=== PATIENT | female | born 1945 | race Caucasian/White ===

== ENCOUNTER 2023-06-25 14:34 | Emergency (ER) | payer MEDICARE, OTHER, SELFPAY ==
[2023-06-25 14:41] VITALS: BP 137/80; PULSE 86; RESP 18; TEMP 36.4; O2SAT 98
[2023-06-25 16:34] VITALS: BP 141/72; PULSE 103; RESP 16; O2SAT 99
--- NOTE | 2023-06-25 16:42 | EX.ED.DYSGE1 ---
HPI History of Present Illness Chief Complaint: Nosebleed Informant: patient Narrative Narrative: Patient presents with right-sided epistaxis. Patient is on Eliquis for history of atrial fibrillation. She bent over bleeding from the right side of her nose. Not the left side. She has some drainage down the back. No other areas of bleeding. She did have immunizations today for RSV and pneumonia. She also had blood work done this morning. I looked at her MyChart and she had a hemoglobin of 10.9 without 187,000 platelets today. [facility] Medical History unable to obtain Allergy/AdvReac Type Severity Reaction Status Date / Time acetaminophen [From [place]] Allergy Vomiting Verified 06/25/23 14:37 anastrozole Allergy Rash Verified 06/25/23 14:37 hydrocodone [From [place]] Allergy Vomiting Verified 06/25/23 14:37 Penicillins Allergy Rash Verified 06/25/23 14:37 Social History Smoking Status: Never smoker ROS [facility] [[email or web address] ED Constitutional Constitutional ED: Denies chills or fever(s) ENT ENT ED: Reports other Details: Right-sided epistaxis Cardiovascular Cardiovascular: Denies palpitations Respiratory/Chest Respiratory/Chest: Denies cough or dyspnea Gastrointestinal Gastrointestinal: Denies nausea or vomiting Musculoskeletal Musculoskeletal: Denies myalgias Integumentary Reports other Details: No abnormal bruising. ; Denies rash Neurologic Neurologic: Denies paresthesias Hematologic/Lymphatic Hematologic/Lymphatic: Reports easy bleeding and easy bruising Allergic/Immunologic Allergic/Immunologic ED: Denies urticaria EXAM Physical Exam Narrative Exam Narrative: CONSTITUTIONAL: Patient is nontoxic in appearance. The patient looks comfortable. Work of breathing looks normal. HEENT: No notable trauma. Mucous membranes moist. There is some dried blood in the pharynx. Nasal clamp is in place. No active bleeding through this. EYES: No conjunctival injection. No proptosis. NECK:No JVD. No stridor. CARDIOVASCULAR: Regular rate. Regular rhythm. No notable murmur. No JVD. She sounds as though she is in a regular rhythm at this time. RESPIRATORY: No respiratory distress. Breathing is unlabored. No wheezes. No rhonchi. No rales. No pain with a deep breath. No chest wall tenderness. GASTROINTESTINAL: Not distended. Bowel sounds are normal. No tenderness. GENITOURINARY: No tenderness over the bladder. No CVA tenderness. MUSCULOSKELETAL: Atraumatic. No peripheral edema. NEUROLOGICAL: Patient is alert and appropriate. No focal deficit noted. SKIN: No noted rashes. No diaphoresis. No petechiae or purpura noted. No abnormal bruising. PSYCHIATRIC: Patient is calm. Mood is appropriate. Const Vital Signs: 06/25/23 14:41 06/25/23 16:34 06/25/23 20:00 Temperature 97.6 F L Temperature Source Temporal Pulse Rate 86 103 H 91 Respiratory Rate 18 16 16 Blood Pressure 137/80 H 141/72 H 135/85 H Blood Pressure Mean 99 95 101 Pulse Ox 98 99 95 Oxygen Delivery Method Room Air Room Air Room Air 06/25/23 20:00 Temperature Temperature Source Pulse Rate 85 Respiratory Rate 16 Blood Pressure 135/85 H Blood Pressure Mean 101 Pulse Ox 99 Oxygen Delivery Method MDM MDM MDM Narrative Medical decision making narrative: Procedure: Management of epistaxis: Patient blew her nose. There was some moderate bleeding. [place] mix on a cottonball was placed in the nare and then compressed again. We went back to check. We had her blow her nose again. We put spray thrombin in there and initially it was calm. But then she blew her nose and it started bleeding. I went back in. A little bit more spray thrombin was used and we placed a 5 and half centimeter Rh[place]ocket. I attempted a 7-1/2 initially but it just would not go in. 5 and half went in relatively easily. She tolerated this. We inflated it. She was doing well. There is a little bit of drainage out the front. Patient did keep touching the nose and this would bump the Rhino Rocket. It helped when we taped it to the side. Show was doing well. We are getting her up walking around and she is did start to rebleed. While she was here we decided we would provide further treatment. I did not want to remove this packing as she has some good clot formation. The bleeding was always on the right side. But I did deflate the packing and I dripped TXA around it. We reinflated it. This seemed to really help and she has stopped now. She is walked around. She wants to go home. EKG Initial EKG: Comments: My independent interpretation of her EKG done for history of A-fib shows atrial fibrillation with controlled rate at 77. No acute ST elevation or depression. No ventricular ectopy. Nonspecific changes. QRS duration and QTc are Discharge Plan Triage Chief Complaint: Nosebleed ED Provider: Juliano Mcdowell Dx/Rx/DC Orders Clinical Impression: Right-sided epistaxis Instructions: Nosebleed Primary Care Provider: Phil Negron Referrals: Huber Sheth MD [Med Staff - Courtesy Staff] - 3-5 Days Disposition Disposition: Home, Self Care Discharge Date/Time: 06/25/23 21:25
--- NOTE | 2023-06-25 16:49 | ED.RN ---
NO OLD EKG
[2023-06-25] MEDS: Thrombin 5,000 IU Kit (PSA) 5,000 IU Vial 5000 IU TOPICAL (18:52)
[2023-06-25] MEDS: Mixture 30 ML Bottle 20 ML TOPICAL (18:52)
[2023-06-25 20:00] VITALS: BP 135/85; PULSE 85; PULSE 91; RESP 16; O2SAT 95; O2SAT 99
[2023-06-25] MEDS: TRANEXAMIC ACID 1,000 MG/10 ML ML 1000 MG IRRIGATION (21:22)
== END 2023-06-25 21:25 | disposition home or self-care (01) ==
LOC: ED 17:14
PROVIDERS: Emergency Provider Emergency Medicine; PCP Family Medicine; Visit Provider Emergency Medicine
DX: R04.0 Epistaxis (principal)
CPT/HCPCS: 30901; 93005; 99282

== ENCOUNTER 2023-07-16 18:37 | Inpatient (IN) | payer MEDICARE, OTHER, SELFPAY ==
[2023-07-16 18:38] VITALS: BP 138/78; PULSE 90; RESP 18; TEMP 37.4; O2SAT 97; BMI 26.6
--- OUTSIDE RECORDS SUMMARY | 2023-07-16 19:27 | XMS RPT_ITS | CCD ---
Author Name Unknown Address [address] [place] [address] Organization [facility] Care Team Providers Care Cigarette Book Maker Name Role Phone J Luis Cid Unavailable [phone] Deisi RN, Indu (Rn) Unavailable Tala Negron MD Primary Care Provider No, Referral Unavailable Unavailable Howard Cody MD Unavailable Manny RUSSO MD, Estefani Unavailable Mesfin PRICE, Kami Unavailable Unavailable Vikram Gomez MD Unavailable Vikram Gomez MD Unavailable Preet PRICE, Lesley Zaman Unavailable Unavail able Preet PRICE, Lesley Zaman [facility]available [facility] Addie Unavailable [phone] J Luis Cid Unavailable [facility] RNIndu (Rn) Unavailable Tala Negron MD Primary Care Provider Howard Cody MD Unavailable Manny RUSSO MD, Estefani Unavailable Mesfin PRICE, Kami Unavailable Unavailable Vikram Gomez MD Unavailable Vikram Gomez MD Unavailable Preet PRICE, Lesley Zaman Unavailable Rocio CLARKE Addie Unavailable [phone] Tala Negron MD Primary Care Provider Vikram Gomez MD Unavailable Preet PRICE, Lesley Zaman Unavailable [phone] J Luis Cid Unavailable Deisi RN, Indu (Rn) Unavailable Tala Negron MD Primary Care Provider No, Referral Unavailable Unavailable Escobar RUSSO, Howard Unavailable Manny RUSSO, , Dayayo Unavailable Mesfin RN, Kami Unavailable Unavailable Jason RUSSO, Vikram Unavailable Jason RUSSO, Vikram Unavailable Daniela Chan DO Unavailable Darby PRICE, Lucas Unavailable Darby PRICE, Lucas Unavailable [phone] J Luis Cid Unavailable No, Referral Unavailable Unavailable [facility] RN, Indu (Rn) Unavailable Howard Cody MD Unavailable Mesfin RN, Kami Unavailable Unavailable Zulemafernie CLARKE Addie Unavailable Darby PRICE, Lucas Unavailable PROVIDER, UNKNOWN Referring Unavailable TALA NEGRON Primary Care Unavailab le PROVIDER, UNKNOWN Referring Unavailable TALA NEGRON Primary Care Unavailab devin Gomez MD, Vikram Unavailable Jason RUSSO, Vikram Unavailable TRACY MCKEON Referring Unavailable TALA NEGRON Primary Care Unavailab le GOLIAS, ANSELMO Attending Unavailable TALA NEGRON Primary Care Unavailab le TALA NEGRON Referring Unavailab le GOLIAS, ANSELMO Attending Unavailable TRACY MCKEON Referring Unavailable TALA NEGRON Primary Care Unavailab le GOLIAS, ANSELMO Attending Unavailable TALA NEGRON Primary Care Unavailab le TALA NEGRON Referring Unavailab le GOLIAS, ANSELMO Attending Unavailable TALA NEGRON Primary Care Unavailab le TALA NEGRON Referring Unavailab le GOLIAS, ANSELMO Attending Unavailable DANIELA CHAN Referring Unavailable TALA NEGRON Primary Care Unavailab le TALA NEGRON Primary Care Unavailab VLADIMIR Mckeon Referring Unavailable TALA NEGRON Primary Care Unavailab VLADIMIR Mckeon Attending Unavailable VLADIMIR THAO Referring Unavailable TALA NEGRON Primary Care Unavailab VLADIMIR Mckeon Referring Unavailable TALA NEGRON Primary Care Unavailab le TALA NEGRON Primary Care Unavailab NIMISHA Mehta Referring Unavailable RAMÍREZ [place] Attending Unavailable TALA NEGRON Primary Care Unavailab KIZZY Bustillos Attending Unavailable TALA NEGRON Primary Care Unavailab le ZULEMADANIELA KNIGHT Referring Unavailable TALA NEGRON Primary Care Unavailab le TALA NEGRON Primary Care Unavailab devin ALEMAN, NIMISHA Referring Unavailable NIMISHA ALEMAN Attending Unavailable TALA NEGRON Primary Care Unavailab le TALA NEGRON Attending Unavailab le TALA NEGRON Primary Care Unavailab le TALA NEGRON Referring Unavailab le TESTTRACY JEAN Referring Unavailable TALA NEGRON Primary Care Unavailab le GOLALEXEI, ANSELMO Attending Unavailable TRACY MCKEON Referring Unavailable TALA NEGRON Primary Care Unavailab le GOLIASANSELMO Attending Unavailable TALA NEGRON Primary Care Unavailab le TALA NEGRON Referring Unavailab le GOLALEXEI, ANSELMO Attending Unavailable TALA NEGRON Primary Care Unavailab le TALA NEGRON Referring Unavailab le GOLIAS, ANSELMO Attending Unavailable TALA NEGRON Primary Care Unavailab TALA Adame Referring Unavailab le GOLIAS ANSELMO Attending Unavailable TRACY MCKEON Referring Unavailable TALA NEGRON Primary Care Unavailab le GOLIAS, ANSELMO Attending Unavailable TRAVIS GARIBAY Referring Unavailable TRAVIS GARIBAY Attending Unavailable TALA NEGRON Primary Care Unavailab AGNIESZKA Milligan Attending Unavail able TALA NEGRON Primary Care Unavailab le TALA NEGRON Primary Care Unavailab le TALA NEGRON Primary Care Unavailab VLADIMIR Mckeon Referring Unavailable TALA NEGRON Primary Care Unavailab le TYRELL, AJIT Attending Unavailable TALA NEGRON Primary Care Unavailab le GERA, LUISER B Primary Care Unavailab le ALEMAN, NIMISHA Referring Unavailable TALA NEGRON Primary Care Unavailab le ALEMAN, NIMISHA Referring Unavailable FISH ARREOLA Referring Unavailable LUIS NEGRONER Eligio Primary Care Unavailab le GERA, LUISER B Primary Care Unavailab le DANIELA CHAN Attending Unavailable TALA NEGRON Primary Care Unavailab HUMBERTO Alexander Attending Unavailable TALA NEGRON B Primary Care Unavailab le RODRIGUEZ, RANDEE Referring Unavailable LUIS NEGRONER B Primary Care Unavailab le RODRIGUEZRANDEE Referring Unavailable LUIS NEGRONER B Primary Care Unavailab le RODRIGUEZ, RANDEE Referring Unavailable TALA NEGRON B Primary Care Unavailab le MOUNTDANIELA KNIGHT Referring Unavailable TALA NEGRON B Primary Care Unavailab DANIELA Valeds Referring Unavailable TALA NEGRON B Primary Care Unavailab le MOUNTDANIELA KNIGHT Referring Unavailable SHASHI MCADAMS Attending Unavailable TALA NEGRON B Primary Care Unavailab le GERA, LUISER B Primary Care Unavailab le ALEMAN, NIMISHA Referring Unavailable TALA NEGRON B Primary Care Unavailab le ALEMAN, NIMISHA Referring Unavailable TALA NEGRON B Primary Care Unavailab le ALEMAN, NIMISHA Referring Unavailable DANIELA CHAN Referring Unavailable TALA NEGRON B Primary Care Unavailab le GERA, LUISER B Primary Care Unavailab le GERA, LUISER B Primary Care Unavailab le ALEMAN, NIMISHA Attending Unavailable NEAL, NIMISHA Referring Unavailable SHASHI MCADAMS Referring Unavailable LUIS NEGRONER B Primary Care Unavailab le GERA, LUISER B Primary Care Unavailab le PODLOGARMELANIE Attending Unavailable TALA NEGRON Primary Care Unavailab le ALEMAN, NIMISHA Referring Unavailable TALA NEGRON B Primary Care Unavailab le PODLOGARMELANIE Referring Unavailable RANDEE RODRIGUEZ Referring Unavailable LUIS NEGRONER B Primary Care Unavailab le GERA, LUISER B Primary Care Unavailab le PODLOGARMELANIE Referring Unavailable AGUSTÍN, FISH Referring Unavailable BURSLEY, CHRISTOPHER B Primary Care Unavailab le VLADIMIR THAO Referring Unavailable GERA, CHRISTOPHER B Primary Care Unavailab le GERA, CHRISTOPHER B Primary Care Unavailab le AGUSTÍN, FISH Referring Unavailable GERA, LOUISEOPHER B Primary Care Unavailab AGNIESZKA Milligan Attending Unavail able LOUISE NEGRONOPHER B Primary Care Unavailab le GERA, CHRISTOPHER B Primary Care Unavailab le RODRIGUEZ, RANDEE Referring Unavailable BURSLEY, CHRISTOPHER B Primary Care Unavailab le RODRIGUEZ, RANDEE Referring Unavailable BURSLEY, CHRISTOPHER B Primary Care Unavailab le GERA, CHRISTOPHER B Primary Care Unavailab le GERA, CHRISTOPHER B Primary Care Unavailab le HUMBERTO WING Referring Unavailable LOUISE NEGRONOPHER B Primary Care Unavailab SHANITA Elizalde Attending Unavailable DANIELA CHAN Attending Unavailable LUIS NEGRONER B Primary Care Unavailab le LOUISE NEGRONOPHER B Primary Care Unavailab le VLADIMIR THAO Referring Unavailable LUIS NEGRONER B Primary Care Unavailab le GERA, CHRISTOPHER B Primary Care Unavailab NIMISHA Mehta Referring Unavailable GERA CHRISTOPHER B Primary Care Unavailab le MELANIE STRONG Attending Unavailable ESPERANZA YOO Attending Unavailable TALA NEGRON B Primary Care Unavailab le AGUSTÍN, FISH Referring Unavailable GERA, LOUISEOPHER B Primary Care Unavailab le AGUSTÍN, FISH Attending Unavailable LUIS NEGRONER B Primary Care Unavailab le MELANIE STRONG Referring Unavailable AGUSTÍN, FISH Referring Unavailable LUIS NEGRONER B Primary Care Unavailab DANIELA Valdes Referring Unavailable LOUISE NEGRONOPHER B Primary Care Unavailab DANIELA Valdes Referring Unavailable GERA CHRISTOPHER B Primary Care Unavailab TERA Dumont Attending Unavailable TALA NEGRON B Primary Care Unavailab le VLADIMIR THAO Referring Unavailable LOUISE NEGRONOPHER B Primary Care Unavailab EDWINA Oakes Attending Unavailable TALA NEGRON Primary Care Unavailab le VLADIMIR THAO Referring Unavailable VLADIMIR THAO Attending Unavailable LUIS NEGRONER B Primary Care Unavailab le AGUSTÍN, FISH Attending Unavailable TALA NEGRON Primary Care Unavailab devin PODLOGMELANIE SANABRIA Referring Unavailable ALEC SHASHI Referring Unavailable TALA NEGRON Primary Care Unavailab TALA Adame Primary Care Unavailab TALA Adame Primary Care Unavailab TALA Adame Primary Care Unavailab TRAVIS Radford Attending Unavailable TRAVIS GARIBAY Admitting Unavailable TALA NEGRON Primary Care Unavailab le Allergies Allergy Classification Reported Allergen(s) Allergy Type Date of Onset Reaction(s) Facility (20 sources) Acetaminophen / HYDROcodone; Translations: [HYDROCODONE-ACETA MINOPHEN] Drug Allergy 7 Vomiting [facility] Work Phone: (20 sources) anastrozole; Translations: [ANASTROZOLE] Drug Allergy 8 Rash [facility] Work Phone: (20 sources) Penicillins; Translations: [PENICILLINS] Drug Allergy 7 Other: See Comments [facility] Work Phone: (20 sources) Penicillins Drug Allergy 7 Other: See Comments [facility] Work Phone: Medications Current Medications Medication Drug Class(es) Dates Sig (Normalized) Sig (Original) doxycycline hyclate 100 mg oral tablet (3 sources) Tetracycline-clas s Drug Start: 10-14-2021 End: 10-24-2021 take 1 tablet by mouth twice daily doxycycline (VIBRA-TABS) 100 mg tablet Take 1 tablet by mouth twice daily for 10 days. 20 tablet 0 10/14/2021 10/24/2021 Active Completed/Discontinued Medications Medication Drug Class(es) Dates Sig (Normalized) Sig (Original) acetaminophen 500 mg oral tablet (20 sources) End: 06-04-2023 acetaminophen (TYLENOL) 500 mg tablet Take 1,000 mg by mouth as needed. 0 06/04/2023 Discontinued (Other) Problems Active Problems Problem Classification Problem Date Documented Date Episodic/Chronic Cancer of breast (20 sources) Malignant neoplasm of lower-outer quadrant of female breast; Translations: [Malignant neoplasm of lower-outer quadrant of left female breast] Onset: 7 Chronic Cancer of breast (2 sources) History of malignant neoplasm of breast; Translations: [Personal history of malignant neoplasm of breast] Onset: 3 Episodic Cardiac dysrhythmias (20 sources) Chronic atrial fibrillation; Translations: [Chronic atrial fibrillation, unspecified] Onset: 7 08-20-2020 Chronic Chronic kidney disease (20 sources) Chronic kidney disease stage 3A ; Translations: [Chronic kidney disease, stage 3a] Onset: 3 11-10-2022 Chronic Chronic kidney disease (2 sources) Chronic kidney disease; Translations: [Stage 3b chronic kidney disease (HCC)] Onset: 3 Conduction disorders (20 sources) Sinus node dysfunction; Translations: [Other specified heart block] Onset: 0 12-05-2019 Chronic Congestive heart failure; nonhypertensive (20 sources) Chronic diastolic heart failure; Translations: [Chronic diastolic (congestive) heart failure] Onset: 0 09-09-2019 Chronic Coronary atherosclerosis and other heart disease (20 sources) Coronary atherosclerosis; Translations: [Atherosclerotic heart disease of [place] coronary artery with unspecified angina pectoris] Onset: 1 08-06-2020 Chronic Delirium, dementia, and amnestic and other cognitive disorders (2 sources) Senile asthenia; Translations: [Age-related physical debility] Onset: 3 Chronic Digestive congenital anomalies (20 sources) Congenital pancreatic cyst; 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] Onset: 0 12-30-2019 Chronic Disorders of lipid metabolism (4 sources) Mixed hyperlipidemia; Translations: [Mixed hyperlipidemia] Chronic Esophageal disorders (20 sources) Gastroesophageal reflux disease; Translations: [Gastro-esophageal reflux disease without esophagitis] 08-06-2017 Chronic Essential hypertension (20 sources) Malignant essential hypertension; Translations: [Essential (primary) hypertension] Onset: 3 06-27-2021 Chronic Fluid and electrolyte disorders (1 source) Hyponatremia; Translations: [Hypo-osmolality and hyponatremia] Onset: 4 06-24-2023 Episodic Heart valve disorders (5 sources) Tricuspid incompetence, non-rheumatic ; Translations: [Nonrheumatic tricuspid (valve) insufficiency] Onset: 3 04-13-2023 Chronic Hypertension with complications and secondary hypertension (2 sources) Hypertensive heart failure; Translations: [Hypertensive heart disease with heart failure] Onset: 3 04-13-2023 Chronic Nonmalignant breast conditions (20 sources) Breast seroma; Translations: [Other specified disorders of breast] 08-06-2017 Episodic Osteoporosis (20 sources) Senile osteoporosis; Translations: [Age-related osteoporosis without current pathological fracture] Onset: 1 06-04-2021 Chronic Other and unspecified benign neoplasm (1 source) Multiple benign melanocytic nevi ; Translations: [Melanocytic nevi, unspecified] 05-06-2023 Episodic Other and unspecified benign neoplasm (1 source) Senile angioma; Translations: [Hemangioma of skin and subcutaneous tissue] 05-06-2023 Episodic Other and unspecified benign neoplasm (1 source) Dermal cellular nevus ; Translations: [Other benign neoplasm of skin, unspecified] 05-06-2023 Episodic Other and unspecified benign neoplasm (1 source) Melanocytic nevi, unspecified; Translations: [Multiple benign nevi] Onset: 3 Episodic Other and unspecified benign neoplasm (2 sources) Hemangioma of skin and subcutaneous tissue; Translations: [Vega angioma] Onset: 3 Episodic Other connective tissue disease (20 sources) Recurrent falls ; Translations: [Repeated falls] 01-26-2017 Episodic Other connective tissue disease (1 source) Muscle pain; Translations: [Myalgia, unspecified site] Episodic Other connective tissue disease (1 source) Pain in both feet; Translations: [Pain in right foot] Episodic Other connective tissue disease (2 sources) Pain of left upper arm; Translations: [Pain in left upper arm] Episodic Other endocrine disorders (20 sources) Primary hyperparathyroidism; Translations: [Primary hyperparathyroidism] Onset: 1 07-11-2020 Chronic Other endocrine disorders (1 source) Hyperparathyroidism; Translations: [Hyperparathyroidism, unspecified] 02-13-2023 Chronic Other endocrine disorders (1 source) Hyperparathyroidism, unspecified; Translations: [Hyperparathyroidism (HCC)] Onset: 3 Chronic Other endocrine disorders (1 source) Primary hyperparathyroidism; Translations: [Primary hyperparathyroidism (HCC)] Onset: 1 Chronic Other lower respiratory disease (4 sources) Dyspnea on exertion; Translations: [Dyspnea, unspecified] Episodic Other lower respiratory disease (1 source) Hemoptysis; Translations: [Hemoptysis] Episodic Other lower respiratory disease (1 source) Cough; Translations: [Cough] Episodic Other lower respiratory disease (5 sources) Nodule of lung; Translations: [Solitary pulmonary nodule] Episodic Other nervous system disorders (1 source) Neuropathy; Translations: [Polyneuropathy, unspecified] Chronic Other nervous system disorders (2 sources) Unsteady when walking; Translations: [Unsteadiness on feet] Episodic Other non-epithelial cancer of skin (3 sources) 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; Translations: [Carcinoma in situ of skin of other parts of face] Onset: 3 Episodic Other skin disorders (1 source) Seborrheic keratosis; Translations: [Other seborrheic keratosis] 05-06-2023 Episodic Other skin disorders (1 source) Lentiginosis; Translations: [Other melanin hyperpigmentation] 05-06-2023 Episodic Other skin disorders (1 source) Actinic keratosis; Translations: [Actinic keratosis] 05-06-2023 Episodic Other skin disorders (1 source) Eruption; Translations: [Rash and other nonspecific skin eruption] 05-06-2023 Episodic Other skin disorders (1 source) Other seborrheic keratosis; Translations: [Seborrheic keratosis] Onset: 3 Episodic Other skin disorders (1 source) Other melanin hyperpigmentation; Translations: [Lentigines] Onset: 3 Episodic Other skin disorders (1 source) Actinic keratosis; Translations: [Actinic keratosis] Onset: 3 Episodic Other skin disorders (1 source) Rash and other nonspecific skin eruption; Translations: [Rash and nonspecific skin eruption] Onset: 3 Episodic [place]-; endo-; and myocarditis; cardiomyopathy (except that caused by tuberculosis or sexually transmitted disease) (20 sources) Heart valve disorder; Translations: [Endocarditis, valve unspecified] Onset: 1 08-06-2020 Chronic Peripheral and visceral atherosclerosis (20 sources) Intermittent claudication; Translations: [Peripheral vascular disease, unspecified] Onset: 3 11-12-2022 Chronic Pneumonia (except that caused by tuberculosis or sexually transmitted disease) (3 sources) Bacterial pneumonia; Translations: [Unspecified bacterial pneumonia] Episodic Pulmonary heart disease (20 sources) Pulmonary hypertension; Translations: [Pulmonary hypertension, unspecified] Onset: 1 08-06-2020 Chronic Residual codes; unclassified (20 sources) Obstructive sleep apnea syndrome; Translations: [Obstructive sleep apnea (adult) (pediatric)] Onset: 7 12-05-2019 Chronic Residual codes; unclassified (1 source) Obstructive sleep apnea (adult) (pediatric); Translations: [CAMRYN (obstructive sleep apnea)] Onset: 0 Chronic Residual codes; unclassified (20 sources) H/O: atrial fibrillation; Translations: [Other specified postprocedural states] 08-06-2017 Episodic Residual codes; unclassified (20 sources) Patient encounter status; Translations: [Encounter for prophylactic measures, unspecified] Onset: 1 08-20-2020 Episodic Secondary malignancies (20 sources) Secondary malignant neoplasm of skin; Translations: [Secondary malignant neoplasm of skin] Onset: 0 06-12-2020 Chronic Secondary malignancies (2 sources) Secondary malignant neoplasm of other specified sites; Translations: [Chest wall recurrence of breast cancer, left (HCC)] Onset: 3 Chronic Secondary malignancies (2 sources) Secondary malignant neoplasm of skin; Translations: [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)] Onset: 0 Chronic Unclassified (1 source) Radiology NM Onset: 3 Unclassified (2 sources) Chronic atrial fibrillation, unspecified; Translations: [Chronic atrial fibrillation, unspecified (HCC)] Onset: 1 Unclassified (1 source) Personal history of in-situ neoplasm of skin; Translations: [History of squamous cell carcinoma in situ (SCCIS)] Onset: 3 Past or Other Problems Problem Classification Problem Date Documented Date Episodic/Chronic Abdominal pain (20 sources) Epigastric pain; Translations: [Epigastric pain] Onset: 12-03-2019 12-05-2019 Episodic Acquired foot deformities (20 sources) Acquired bilateral pes planus; Translations: [Flat foot [pes planus] (acquired), right foot] Onset: 07-28-2022 Episodic Acute and unspecified renal failure (2 sources) Acute injury of kidney; Translations: [Acute kidney failure, unspecified] Onset: 03-06-2023 02-27-2023 Episodic Diabetes mellitus without complication (20 sources) Prediabetes; Translations: [Prediabetes] Onset: 08-06-2017 08-06-2017 Episodic E Codes: Fall (20 sources) Fall in home; Translations: [Unspecified fall, initial encounter] Onset: 08-20-2022 Episodic E Codes: Place of occurrence (1 source) Unspecified place in unspecified non-institutional (private) residence as the place of occurrence of the external cause; Translations: [Fall in home, initial encounter] Onset: 08-20-2022 Episodic Lymphadenitis (20 sources) Mediastinal lymphadenopathy; Translations: [Localized enlarged lymph nodes] Onset: 03-25-2021 03-25-2021 Episodic Neoplasms of unspecified nature or uncertain behavior (20 sources) Benign neoplasm of pancreas; Translations: [Neoplasm of unspecified behavior of digestive system] Onset: 08-06-2020 08-20-2020 Episodic Other aftercare (20 sources) Drug therapy finding; Translations: [Other intermediate (current) drug therapy] Onset: 08-07-2020 08-20-2020 Episodic Other and unspecified benign neoplasm (1 source) Other benign neoplasm of skin, unspecified; Translations: [Intradermal nevus] Onset: 11-04-2022 Episodic Other circulatory disease (1 source) Personal history of other diseases of the circulatory system; Translations: [S/P ablation of atrial fibrillation] Onset: 08-06-2017 Episodic Other connective tissue disease (20 sources) Disorder of posterior tibial muscle tendon; Translations: [Posterior tibial tendinitis, unspecified leg] Onset: 07-28-2022 Episodic Other connective tissue disease (1 source) Pain in left upper arm; Translations: [Left upper arm pain] Onset: 08-20-2022 Episodic Other inflammatory condition of skin (20 sources) Vasculitis of the skin; Translations: [Vasculitis limited to the skin, unspecified] Onset: 02-01-2018 02-01-2018 Episodic Other lower respiratory disease (20 sources) Multiple nodules of lung; Translations: [Other nonspecific abnormal finding of lung field] Onset: 12-25-2020 1 Episodic Other lower respiratory disease (1 source) Other nonspecific abnormal finding of lung field; Translations: [Lung nodules] Onset: 12-25-2020 Episodic Other lower respiratory disease (2 sources) Solitary pulmonary nodule; Translations: [Lung nodule seen on imaging study] Onset: 07-29-2022 Episodic Other nervous system disorders (20 sources) Acute postoperative pain; Translations: [Other acute postprocedural pain] Onset: 12-04-2019 12-05-2019 Episodic Other nervous system disorders (20 sources) Postoperative pain ; Translations: [Other acute postprocedural pain] Onset: 08-07-2020 08-10-2020 Episodic Other nervous system disorders (20 sources) Abnormal gait; Translations: [Unsteadiness on feet] Onset: 09-18-2022 Episodic Other nervous system disorders (1 source) Unsteadiness on feet; Translations: [Unsteady gait when walking] Onset: 08-20-2022 Episodic Other screening for suspected conditions (not mental disorders or infectious disease) (20 sources) ST segment elevation; Translations: [Abnormal electrocardiogram [ECG] [EKG]] Onset: 08-15-2020 08-21-2020 Episodic Other skin disorders (20 sources) Loss of hair; Translations: [Nonscarring hair loss, unspecified] Onset: 12-25-2020 12-25-2020 Episodic Pancreatic disorders (not diabetes) (20 sources) Disorder of pancreas; Translations: [Disease of pancreas, unspecified] Onset: 12-04-2019 12-05-2019 Episodic Residual codes; unclassified (20 sources) Postoperative state; Translations: [Other specified postprocedural states] Onset: 08-07-2020 08-10-2020 Episodic Residual codes; unclassified (9 sources) Estrogen receptor positive status [ER+]; Translations: [Malignant neoplasm of breast in female, estrogen receptor positive, unspecified laterality, unspecified site of breast (HCC)] Onset: 01-09-2017 Episodic Residual codes; unclassified (1 source) Other specified postprocedural states; Translations: [S/P ablation of atrial fibrillation] Onset: 08-06-2017 Episodic Results Test Name Value Interpretation Reference Range Facil ity Vital Signs Date Time Vital Sign Value Performing Clinician Faci lity 06-04-2023 10:51-0500 Body height 157.5 cm Humberto Wing MD Work Phone: [facility] 06-04-2023 10:51-0500 Body weight 63.96 kg Humberto Wing MD Work Phone: [facility] 06-04-2023 10:51-0500 Diastolic blood pressure 71 mm[Hg] Humberto Wing MD Work Phone: [facility] 06-04-2023 10:51-0500 Heart rate 74 /min Humberto Wing MD Work Phone: [facility] 06-04-2023 10:51-0500 SaO2% (BldA) [Mass fraction] 98 % Humberto Wing MD Work Phone: [facility] 06-04-2023 10:51-0500 Systolic blood pressure 134 mm[Hg] Humberto Wing MD Work Phone: [facility] 05-11-2023 10:04-0500 Body height 157 cm Vladimir Masci DO Work Phone: [facility] 05-11-2023 10:04-0500 Body temperature 97.59 [degF] Vladimir Masci DO Work Phone: [facility] 05-11-2023 10:04-0500 Body weight 65.55 kg Vladimir Masci DO Work Phone: [facility] 05-11-2023 10:04-0500 Diastolic blood pressure 71 mm[Hg] Vladimir Masci DO Work Phone: [facility] 05-11-2023 10:04-0500 Heart rate 64 /min Vladimir Masci DO Work Phone: [facility] 05-11-2023 10:04-0500 SaO2% (BldA) [Mass fraction] 100 % Vladimir Masci DO Work Phone: [facility] 05-11-2023 10:04-0500 Systolic blood pressure 122 mm[Hg] Vladimir Masci DO Work Phone: [facility] 02-25-2023 09:04-0400 Body weight 64.86 kg Fish Arreola MD Work Phone: [facility] 02-25-2023 09:04-0400 Diastolic blood pressure 61 mm[Hg] Fish Arreola MD Work Phone: [facility] 02-25-2023 09:04-0400 Heart rate 73 /min Fish Arreola MD Work Phone: [facility] 02-25-2023 09:04-0400 Systolic blood pressure 97 mm[Hg] Fish Arreola MD Work Phone: [facility] 02-13-2023 10:09-0400 Body weight 65.23 kg Melanie Podlogar TIN DIPPER.SAWMILL 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 Work Phone: [facility] 02-13-2023 10:09-0400 Diastolic blood pressure 72 mm[Hg] Melanie Podlogar TIN DIPPER.SAWMILL 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 Work Phone: [facility] 02-13-2023 10:09-0400 Heart rate 75 /min Melanie Podlogar TIN DIPPER.SAWMILL 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 Work Phone: [facility] 02-13-2023 10:09-0400 Respiratory rate 18 /min Melanie Podlogar TIN DIPPER.SAWMILL 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 Work Phone: [facility] 02-13-2023 10:09-0400 SaO2% (BldA) [Mass fraction] 98 % Melanie Podlogar TIN DIPPER.SAWMILL 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 Work Phone: [facility] 02-13-2023 10:09-0400 Systolic blood pressure 106 mm[Hg] Melanie Podlogar TIN DIPPER.SAWMILL 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 Work Phone: [facility] 10-15-2022 14:22-0400 Body weight 65.32 kg Ajit Schneider MD Work Phone: [facility] 10-15-2022 14:22-0400 Diastolic blood pressure 63 mm[Hg] Ajit Schneider MD Work Phone: [facility] 10-15-2022 14:22-0400 Heart rate 79 /min Ajit Schneider MD Work Phone: [facility] 10-15-2022 14:22-0400 Systolic blood pressure 120 mm[Hg] Ajit Schneider MD Work Phone: [facility] 08-19-2022 10:32-0500 Body weight 64.5 kg Tala Negron MD Work Phone: [facility] 08-19-2022 10:32-0500 Diastolic blood pressure 74 mm[Hg] Tala Negron MD Work Phone: [facility] 08-19-2022 10:32-0500 Heart rate 76 /min Tala Negron MD Work Phone: [facility] 08-19-2022 10:32-0500 Respiratory rate 16 /min Tala Negron MD Work Phone: [facility] 08-19-2022 10:32-0500 SaO2% (BldA) [Mass fraction] 97 % Tala Negron MD Work Phone: [facility] 08-19-2022 10:32-0500 Systolic blood pressure 118 mm[Hg] Tala Negron MD Work Phone: [facility] 08-15-2022 11:52-0500 Body height 158.8 cm Nimisha Aleman TIN DIPPER.SAWMILL 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 Work Phone: [facility] 08-15-2022 11:52-0500 Body temperature 98.49 [degF] Nimisha Aleman TIN DIPPER.SAWMILL 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 Work Phone: [facility] 08-15-2022 11:52-0500 Body weight 64.41 kg [place] Aleman TIN DIPPER.SAWMILL 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 Work Phone: [facility] 08-15-2022 11:52-0500 Diastolic blood pressure 73 mm[Hg] [place] Aleman TIN DIPPER.SAWMILL 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 Work Phone: [facility] 08-15-2022 11:52-0500 Heart rate 61 /min [place] Aleman TIN DIPPER.SAWMILL 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 Work Phone: [facility] 08-15-2022 11:52-0500 SaO2% (BldA) [Mass fraction] 97 % [place] Aleman TIN DIPPER.SAWMILL 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 Work Phone: [facility] 08-15-2022 11:52-0500 Systolic blood pressure 120 mm[Hg] [place] Aleman TIN DIPPER.SAWMILL 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 Work Phone: [facility] 08-07-2022 09:15-0500 Diastolic blood pressure 55 mm[Hg] Agnieszka Mccoy MD Work Phone: [facility] 08-07-2022 09:15-0500 Heart rate 63 /min Agnieszka Mccoy MD Work Phone: [facility] 08-07-2022 09:15-0500 Systolic blood pressure 123 mm[Hg] Agnieszka Mccoy MD Work Phone: [facility] 05-23-2022 12:30-0500 Body temperature 98.6 [degF] [place] Aleman TIN DIPPER.SAWMILL 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 Work Phone: [facility] 05-23-2022 12:30-0500 Body weight 64.18 kg Nimisha Aleman TIN DIPPER.SAWMILL 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 Work Phone: [facility] 05-23-2022 12:30-0500 Diastolic blood pressure 81 mm[Hg] [place] Aleman TIN DIPPER.SAWMILL 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 Work Phone: [facility] 05-23-2022 12:30-0500 Heart rate 62 /min Nimisha Aleman TIN DIPPER.SAWMILL 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 Work Phone: [facility] 05-23-2022 12:30-0500 Systolic blood pressure 133 mm[Hg] Nimisha Aleman TIN DIPPER.SAWMILL 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 Work Phone: [facility] 05-21-2022 11:20-0500 Body weight 65.5 kg Tala Negron MD Work Phone: [facility] 05-21-2022 11:20-0500 Diastolic blood pressure 78 mm[Hg] Tala Negron MD Work Phone: [facility] 05-21-2022 11:20-0500 Heart rate 68 /min Tala Negron MD Work Phone: [facility] 05-21-2022 11:20-0500 Respiratory rate 16 /min Tala Negron MD Work Phone: [facility] 05-21-2022 11:20-0500 Systolic blood pressure 120 mm[Hg] Tala Negron MD Work Phone: [facility] 02-28-2022 13:10-0400 Body height 157.3 cm Nimisha Aleman TIN DIPPER.SAWMILL 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 Work Phone: [facility] 02-28-2022 13:10-0400 Body temperature 99.19 [degF] Nimisha Aleman TIN DIPPER.SAWMILL 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 Work Phone: [facility] 02-28-2022 13:10-0400 Body weight 63.96 kg Nimisha Aleman TIN DIPPER.SAWMILL 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 Work Phone: [facility] 02-28-2022 13:10-0400 Diastolic blood pressure 65 mm[Hg] Nimisha Aleman TIN DIPPER.SAWMILL 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 Work Phone: [facility] 02-28-2022 13:10-0400 Heart rate 62 /min Nimisha Aleman TIN DIPPER.SAWMILL 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 Work Phone: [facility] 02-28-2022 13:10-0400 SaO2% (BldA) [Mass fraction] 99 % Nimisha Aleman TIN DIPPER.SAWMILL 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 Work Phone: [facility] 02-28-2022 13:10-0400 Systolic blood pressure 134 mm[Hg] Nimisha Aleman TIN DIPPER.SAWMILL 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 Work Phone: [facility] 02-17-2022 15:05-0400 Body height 157.5 cm Kizzy Ayala APRN.SAWMILL 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 Work Phone: [facility] 02-17-2022 15:05-0400 Body temperature 98.4 [degF] Kizzy Ayala TIN DIPPER.SAWMILL 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 Work Phone: [facility] 02-17-2022 15:05-0400 Body weight 62.6 kg Kizzykaya Cazaresman TIN DIPPER.SAWMILL 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 Work Phone: [facility] 02-17-2022 15:05-0400 Diastolic blood pressure 72 mm[Hg] Kizzy Cazaresman TIN DIPPER.SAWMILL 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 Work Phone: [facility] 02-17-2022 15:05-0400 Heart rate 77 /min Kizzy Ayala TIN DIPPER.SAWMILL 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 Work Phone: [facility] 02-17-2022 15:05-0400 Respiratory rate 20 /min Kizzy Cazaresman TIN DIPPER.SAWMILL 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 Work Phone: [facility] 02-17-2022 15:05-0400 SaO2% (BldA) [Mass fraction] 96 % Kizzy Cazaresman TIN DIPPER.SAWMILL 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 Work Phone: [facility] 02-17-2022 15:05-0400 Systolic blood pressure 122 mm[Hg] Kizzy Ayala TIN DIPPER.SAWMILL 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 Work Phone: [facility] 02-14-2022 10:34-0400 Body weight 64.05 kg Tala Negron MD Work Phone: [facility] 02-14-2022 10:34-0400 Diastolic blood pressure 62 mm[Hg] Tala Negron MD Work Phone: [facility] 02-14-2022 10:34-0400 Heart rate 60 /min Tala Negron MD Work Phone: [facility] 02-14-2022 10:34-0400 Respiratory rate 16 /min Tala Negron MD Work Phone: [facility] 02-14-2022 10:34-0400 SaO2% (BldA) [Mass fraction] 96 % Tala Negron MD Work Phone: [facility] 02-14-2022 10:34-0400 Systolic blood pressure 122 mm[Hg] Tala Negron MD Work Phone: [facility] 11-19-2021 09:19-0400 Body height 157.5 cm Howard Cody MD Work Phone: [facility] 11-19-2021 09:19-0400 Body weight 63.5 kg Howard Cody MD Work Phone: [facility] 11-19-2021 09:19-0400 Diastolic blood pressure 71 mm[Hg] Howard Cody MD Work Phone: [facility] 11-19-2021 09:19-0400 Heart rate 60 /min Howard Cody MD Work Phone: [facility] 11-19-2021 09:19-0400 Systolic blood pressure 129 mm[Hg] Howard Cody MD Work Phone: [facility] 11-08-2021 10:26-0400 Body weight 64.95 kg Tala Negron MD Work Phone: [facility] 11-08-2021 10:26-0400 Diastolic blood pressure 70 mm[Hg] Tala Negron MD Work Phone: [facility] 11-08-2021 10:26-0400 Heart rate 62 /min Tala Negron MD Work Phone: [facility] 11-08-2021 10:26-0400 Respiratory rate 16 /min Tala Negron MD Work Phone: [facility] 11-08-2021 10:26-0400 SaO2% (BldA) [Mass fraction] 96 % Tala Negron MD Work Phone: [facility] 11-08-2021 10:26-0400 Systolic blood pressure 108 mm[Hg] Tala Negron MD Work Phone: [facility] 10-14-2021 15:17-0400 Body weight 65.5 kg Tala Negron MD Work Phone: [facility] 10-14-2021 15:17-0400 Diastolic blood pressure 60 mm[Hg] Tala Negron MD Work Phone: [facility] 10-14-2021 15:17-0400 Heart rate 80 /min Tala Negron MD Work Phone: [facility] 10-14-2021 15:17-0400 Respiratory rate 20 /min Tala Negron MD Work Phone: [facility] 10-14-2021 15:17-0400 SaO2% (BldA) [Mass fraction] 97 % Tala Negron MD Work Phone: [facility] 10-14-2021 15:17-0400 Systolic blood pressure 106 mm[Hg] Tala Negron MD Work Phone: [facility] Encounters Encounter Date Encounter Type Care Provider Facility Start: 07-15-2023 ambulatory VLADIMIR THAO Facility:[facility] Start: 07-14-2023 End: 07-14-2023 ambulatory TALA NEGRON Facility:[facility] Start: 07-10-2023 End: 07-12-2023 ambulatory [facility] Facility:[facility] Start: 07-10-2023 End: 07-12-2023 Nursing evaluation of patient and report Research Nurse Card Intervention [facility] Work Phone: Cardiology Procedures Date Procedure Procedure Detail Performing Clinician Start: 05-04-[address] atten uation skull base mid-thigh Nimisha Aleman TIN DIPPER.SAWMILL 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 Work Phone: Start: 03-11-2023 Screening digital br east tomosynthesis bi Vladimir Thao DO Work Phone: Start: 03-05-2023 Us retroperitoneal r eal time w/image complete Fish Arreola MD Work Phone: Start: 11-14-2022 Mri any jt lower ext rem w/o & w/contrast matrl Nimisha Aleman TIN DIPPER.SAWMILL 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 Work Phone: Start: 10-31-2022 Bone &/joint imaging whole body Nimisha Aleman TIN DIPPER.SAWMILL 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 Work Phone: Start: 10-22-2022 Echocardiography [facility] Start: 05-16-2022 Bone &/joint imaging whole body [place] Aleman TIN DIPPER.SAWMILL 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 Work Phone: Start: 02-14-2022 Adult depression scr eening assessment Daniela Chan DO Work Phone: Start: 02-05-2022 Ct abdomen & pelvis w/contrast material Melanie Brown RN Work Phone: Start: 02-05-2022 Ct thorax w/contrast material [place] Aleman TIN DIPPER.SAWMILL 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 Work Phone: Start: 11-21-2021 Ct abdomen & pelvis w/contrast material Nimisha Aleman TIN DIPPER.SAWMILL 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 Work Phone: Start: 11-21-2021 Ct thorax w/contrast material [place] Aleman TIN DIPPER.SAWMILL 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 Work Phone: Start: 11-20-2021 Adult depression scr eening assessment Ajit Schneider MD Work Phone: Start: 11-09-2021 Adult depression scr eening assessment Nimisha Aleman TIN DIPPER.SAWMILL 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 Work Phone: Start: 10-28-2021 Radiologic exam ches t 2 views Tala Negron MD Work Phone: Start: 08-15-2021 Adult depression scr eening assessment Vladimir Thao DO Work Phone: Plan of Treatment Date Care Activity Detail Author Start: 03-14-2031 Urine microalbumin profile DTa P,Tdap,Td Vaccine (3 - Td or Tdap) [facility] Start: 08-05-2028 Urine microalbumin profile [facility] Start: 06-25-2026 Diabetes Screening Diabetes Screenin [facility] Start: 06-18-2026 Diabetes Screening Diabetes Screenin [facility] Start: 06-04-2026 Diabetes Screening Diabetes Screenin g [facility] Start: 05-27-2026 Diabetes Screening Diabetes Screenin g [facility] Start: 05-13-2026 Diabetes Screening Diabetes Screenin g [facility] Start: 04-30-2026 Diabetes Screening Diabetes Screenin g [facility] Start: 04-22-2026 Diabetes Screening Diabetes Screenin g [facility] Start: 04-09-2026 Diabetes Screening Diabetes Screenin g [facility] Start: 04-03-2026 Diabetes Screening Diabetes Screenin g [facility] Start: 03-31-2026 Diabetes Screening Diabetes Screenin g [facility] Start: 03-19-2026 Diabetes Screening Diabetes Screenin g [facility] Start: 02-26-2026 DIABETES SCREEN DIABETES SCREEN [facility] Start: 02-26-2026 Diabetes Screening Diabetes Screenin g [facility] Start: 02-13-2026 DIABETES SCREEN [facility] Start: 02-02-2026 DIABETES SCREEN [facility] Start: 11-28-2025 DIABETES SCREEN [facility]CREEN [facility] Start: 11-10-2025 [facility] Start: 08-15-2025 DIABETES SCREEN [facility] Start: 05-29-2025 DIABETES SCREEN [facility] Start: 05-16-2025 DIABETES SCREEN [facility] Start: 02-28-2025 DIABETES SCREEN [facility] Start: 11-21-2024 DIABETES SCREEN [facility] Start: 11-07-2024 DIABETES SCREEN [facility] Start: 10-10-2024 DIABETES SCREEN [facility] Start: 08-01-2024 [facility]ABET[facility]CREEN [facility] Start: 06-25-2024 Complete blood count [facility] Start: 06-25-2024 Creatinine measurement Serum Creatin ine [facility] Start: 06-18-2024 Creatinine measurement Serum Creatin ine [facility] Start: 06-08-2024 BP Controlled (<130/80) BP Controlle d (<130/80) [facility] Start: 06-04-2024 Complete blood count [facility] Start: 06-04-2024 Creatinine measurement Serum Creatin ine [facility] Start: 05-27-2024 [facility] Start: 05-27-2024 Creatinine measurement Serum Creatin ine [facility] Start: 05-27-2024 Hemoglobin/Hematocrit Hemoglobin/Hem atocrit [facility] Start: 05-27-2024 Serum Creatinine Serum Creatinine [facility] Start: 05-13-2024 Hemoglobin/Hematocrit Hemoglobin/Hem atocrit [facility] Start: 05-13-2024 Serum Creatinine Serum Creatinine [facility] Start: 05-11-2024 BP Controlled (<130/80) BP Controlle d (<130/80) [facility] Start: 04-30-2024 Hemoglobin/Hematocrit Hemoglobin/Hem atocrit [facility] Start: 04-30-2024 Serum Creatinine Serum Creatinine [facility] Start: 04-24-2024 BP Controlled (<130/80) BP Controlle d (<130/80) [facility] Start: 04-22-2024 Serum Creatinine Serum Creatinine [facility] Start: 04-09-2024 Serum Creatinine Serum Creatinine [facility] Start: 04-03-2024 Hemoglobin/Hematocrit Hemoglobin/Hem [facility] Start: 04-03-2024 Serum Creatinine Serum Creatinine [facility] Start: 03-31-2024 Serum Creatinine Serum Creatinine [facility] Start: 03-19-2024 Serum Creatinine Serum Creatinine [facility] Start: 03-06-2024 [facility]: 03-06-2024 Serum Creatinine Serum Creatinine [facility] Start: 02-27-2024 HEMOGLOBIN/HEMATOCRIT HEMOGLOBIN/HEM [facility] Start: 02-27-2024 SERUM CREATININE SERUM CREATININE [facility] Start: 02-26-2024 BP CONTROLLED (<130/80) BP CONTROLLE D (<130/80) [facility] Start: 02-14-2024 ANNUAL PCP TEAM BUILDING ENGINEER STEVE DISEASE VISIT ANNUAL PCP TEAM CHRONIC DISEASE VISIT [facility] Start: 02-14-2024 BP CONTROLLED (<130/80) BP CONTROLLE D (<130/80) [facility] Start: 02-14-2024 SERUM CREATININE SERUM CREATININE [facility] Start: 02-03-2024 BP CONTROLLED (<130/80) BP CONTROLLE D (<130/80) [facility] Start: 02-03-2024 HEMOGLOBIN[facility]MATOCR[facility] Start: 02-03-2024 SERUM CREATININE SERUM CREATININE [facility] Start: 11-29-2023 Hepatitis B surface antibody level LDL CHOLESTEROL [facility] Start: 11-13-2023 ANNUAL PCP TEAM BUILDING ENGINEER STEVE DISEASE VISIT ANNUAL PCP TEAM CHRONIC DISEASE VISIT [facility] Start: 11-13-2023 BP CONTROLLED (<130/80) BP CONTROLLE D (<130/80) [facility] Start: 11-11-2023 SERUM CREATININE SERUM CREATININE [facility] Start: 11-01-2023 HEMOGLOBIN/HEMATOCRIT HEMOGLOBIN/HEM ATOCRIT [facility] Start: 10-16-2023 BP CONTROLLED (<130/80) BP CONTROLLE D (<130/80) [facility] Start: 08-19-2023 ANNUAL PCP TEAM BUILDING ENGINEER STEVE DISEASE VISIT ANNUAL PCP TEAM CHRONIC DISEASE VISIT [facility] Start: 08-19-2023 BP CONTROLLED (<130/80) BP CONTROLLE D (<130/80) [facility] Start: 08-15-2023 BP CONTROLLED (<130/80) BP CONTROLLE D (<130/80) [facility] Start: 08-07-2023 BP CONTROLLED (<130/80) BP CONTROLLE D (<130/80) [facility] Start: 06-22-2023 Depression Assessment Depression Ass essment [facility] Start: 05-21-2023 ANNUAL PCP TEAM BUILDING ENGINEER STEVE DISEASE VISIT ANNUAL PCP TEAM CHRONIC DISEASE VISIT [facility] Start: 05-21-2023 BP CONTROLLED (<130/80) BP CONTROLLE D (<130/80) [facility] Start: 05-21-2023 COVID-19 VACCINE (5 - Booster for Moderna series) COVID-19 VACCINE (5 - Booster for Moderna series) [facility] Immunizations Immunization Date Immunization Notes Care Provider Dominick jensen 04-28-2022 influenza, high dose seasonal, preservative-free Tala Negron MD Work Phone: [facility] 04-28-2022 influenza virus vacc ine, unspecified formulation Daniela Chan DO Work Phone: [facility] 03-22-2021 influenza virus vacc ine, unspecified formulation Vladimir Thao DO Work Phone: [facility] 07-17-2020 haemophilus influenz ae type b vaccine, PRP-T conjugate Vladimir Thao DO Work Phone: [facility] Work Phone: 07-17-2020 meningococcal oligosaccharide (groups A, C, Y and W-135) diphtheria toxoid conjugate vaccine (MCV4O) Vladimir Thao DO Work Phone: [facility] Work Phone: 07-17-2020 pneumococcal conjuga te vaccine, 13 valent Vladimir Thao DO Work Phone: [facility] Work Phone: 03-12-2020 influenza, high-dose , quadrivalent vaccine (FLUZONE HIGH DOSE QUADRIVALENT) Vladimir Thao DO Work Phone: [facility] 04-11-2019 influenza, high dose seasonal, preservative-free Vladimir Thao DO Work Phone: [facility] 05-26-2018 influenza, high dose seasonal, preservative-free Vladimir Thao DO Work Phone: [facility] 03-30-2017 influenza, high dose seasonal, preservative-free Vladimir Thao DO Work Phone: [facility] 03-30-2017 pneumococcal conjuga te vaccine, 13 valent Vladimir Thao DO Work Phone: [facility] 02-12-2015 pneumococcal polysaccharide vaccine, 23 valent Vladimir Thao DO Work Phone: [facility] Payers Date Payer Category Payer Medicare [id number] 2019 Unknown MMO MMO MEDICARE SUPPLEMENT [id number] 2019-Present [phone] [address] [place] [address] Indemnity [id number] 2019 Unknown MMO MMO MEDICARE SUPPLEMENT [id number] 2019-Present [phone] [address] [place] [address] Indemnity [id number] 2015 Medicare MEDICARE MEDICAR E A AND B [id number] 2015-Present [phone] [address] [address] [place] [address] Medicare [id number] 2015 Medicare MEDICARE MEDICAR E A AND B [id number] 2015-Present [phone] [place] [address] Medicare [id number] 2015 Medicare [id number] Social History Date Type Detail Facility Start: 01-09-2017 End: 02-17-2022 Tobacco smoking status NHIS Never smoked tobacco [facility] Start: 01-09-2017 End: 02-17-2022 Tobacco use and exposure Smokeless tobacco non-user [facility] Start: 08-19-2021 End: 06-24-2023 Alcohol intake Current drinker of alcohol (finding) [facility] Start: 05-25-2020 End: 05-16-2022 History SDOH Alcohol Frequency 3 [facility] Start: 05-25-2020 End: 05-16-2022 History SDOH Alcohol Std Drinks 1 [facility] Start: 03-29-2019 History SDOH Alcohol Comment rare, maybe one drink a month [facility] Start: 12-11-2019 End: 05-16-2022 History SDOH Social Connections Phone 5 [facility] Start: 12-11-2019 End: 05-16-2022 History SDOH Social Connections Get Together 4 [facility] Start: 03-12-2020 History SDOH Physica l Activity MPS 7 [facility] Start: 12-11-2019 End: 05-16-2022 History SDOH Stress 2 [facility] Start: 12-11-2019 Education 20 [facility] Start: 1945 Sex Assigned At Female [facility] Start: 09-29-2021 End: 05-23-2022 Exposure to SARS-CoV-2 (event) Not sure [facility] Start: 05-16-2022 History SDOH Physica l Activity MPS 6 [facility] Start: 05-16-2022 End: 10-22-2022 History of Social function [facility] Start: 05-16-2022 End: 10-22-2022 Social connection and isolation panel [facility] Active Member of [facility] bs or Organizations Not on file [facility] Are you now , , , , never or living with a partner? [facility] How often to you hav e a drink containing alcohol? Monthly or less [facility] How many standard dr inks containing alcohol do you have on a typical day? 1 or 2 [facility] How often do you hav e 6 or more drinks on 1 occasion? Never [facility] Do you feel stress - tense, restless, nervous, or anxious, or unable to sleep at night because your mind is troubled all the time - these days [OSQ] Only a little [facility] (I/We) worried wheth er (my/our) food would run out before (I/we) got money to buy more. Never true [facility] In the past 12 month s, was there a time when you were not able to pay the mortgage or rent on time? No [facility] Start: 10-01-2018 Gender identity Identifies as female gender (finding) [facility] Start: 10-01-2018 Sexual orientation Heterosexual (roxanne casas) [facility] Goals Date Patient Goal Desired Activity /State Personal health goal Clinical Notes 12-25-2020 to 07-12-2023 Lizeth Hobbs RN - 07/12/2023 11:30 AM ESTTelephone Encounter - Chikis Durán RN - 06/05/2023 12:54 PM ESTTelephone Encounter - Brenda Lindsay RN - 06/04/2023 3:15 PM ESTPatient Instructions Note Date & Type Note Facility 07-12-2023 Nurse Note chart review of labs completed documented in this encounter [facility] 06-05-2023 Miscellaneous Notes ECHO LAB TELEPHONE INSTRUCTIONS: Learning Response: Instructions provided to: Patient Procedure: JOSE Pre procedure education topics: Arrival time, NPO status, Medications, and Accompanied by a responsible adult Instructions/Restrictions Patient/Family Response Evaluation: Verbalizes understanding Follow Up Plan and Medication: As directed by physician Instruction/Supplemental Material Given: Appointment Information and Procedure/Test Specific Information: Transesphageal Echocardiogram-JOSE Instructed By Chikis Durán RN. In Department of CARDIOLOGY documented in this encounter [facility] 06-04-2023 Miscellaneous Notes CARDIOVASCULAR LAB INSTRUCTIONS: Readiness to Learn: Cognitive Ability: Alert and oriented Motivation To Learn: Interested Family/Significant Other Support: Unable to assess - Family not present Instruction Provided To: Family member Patient Learns Best By: Individual Instruction Factors Affecting Learning: None Physical Limitations Affecting Learning: None Learning Response: Procedure: Right and Left Heart Diagnostic Pre procedure education topics: Arrival time/NPO Status/Medications/Travel Instructions/Restrictions- instructed to be accompanied by adult lokie driver at discharge Patient/Family Response Evaluation: Verbalizes understanding Follow Up Plan and Medication: As directed by physician Instruction/Supplemental Material Given: Cardiac catheterization instructions, procedure information, hospital information, hotel information. Instructed By Brenda Lindsay RN, RN. In Department of CARDIOLOGY. documented in this encounter [facility] 06-04-2023 History of Present illness Narrative Images from the original note were not included. [facility] [place] Jorge Alberto Diaz Department of Cardiovascular Medicine SECTION OF INTERVENTIONAL CARDIOLOGY OUTPATIENT VISIT DATE June 04, 2023 OUTPATIENT VISIT TYPE NEW PRIMARY CARE PHYSICIAN: Tala Negron [address] [place] [address] REFERRING PHYSICIAN: No referring provider defined for this encounter. CHIEF COMPLAINT: severe TR HISTORY OF PRESENT ILLNESS: Ms. Orquidea Adan is a 78 year old female who presents today re severe TR. 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 Garibay 06/05/23 Relevant Testing Echo: 10/22/2022: LEFT VENTRICLE The left ventricle is normal in size. There is moderate left ventricular hypertrophy. Left ventricular systolic function is normal. Global LV myocardial strain is borderline abnormal. Left ventricular diastolic function was not evaluated due to AF. Mitral annular lateral E/e': 10.0. Mitral annular septal E/e': 13.3. Wall Motion: All scored segments are normal. RIGHT VENTRICLE The right ventricle is normal in size. Right ventricular systolic function is normal. RV systolic tissue Doppler velocity is 9.7 cm/s. Tricuspid annular displacement is 1.7 cm. Estimated right ventricular systolic pressure is 56 mmHg consistent with moderate pulmonary hypertension. Estimated right atrial pressure is 15 mmHg based on IVC assessment. LEFT ATRIUM The left atrial cavity is severely dilated. RIGHT ATRIUM The right atrial cavity is dilated. Inferior Vena Cava: The inferior vena cava appears dilated measuring 2.4 cm. The vessel decreases less than 50 percent with inspiration. MITRAL VALVE There is mild (1+ - 2+) mitral valve regurgitation. There is mild thickening. The average mitral E/e' ratio is 11.6. TRICUSPID VALVE There is severe (3+ - 4+) tricuspid valve regurgitation. There is mild thickening. RYAN(PA) is 22 mm . The hepatic venous pattern showed reversed systolic flow. AORTIC VALVE There is trace (trace - 1+) aortic valve regurgitation. Tricuspid aortic valve. There is moderate thickening. There is mild calcification. Component Latest Ref Rng & Units 05/27/2023 WBC 3.70 - 11.00 k/uL 3.32 (L) RBC 3.90 - 5.20 m/uL 3.22 (L) Hemoglobin 11.5 - 15.5 g/dL 11.7 Hematocrit 36.0 - 46.0 % 34.6 (L) MCV 80.0 - 100.0 fL 107.5 (H) MCH 26.0 - 34.0 pg 36.3 (H) MCHC 30.5 - 36.0 g/dL 33.8 RDW-CV 11.5 - 15.0 % 14.8 Platelet Count 150 - 400 k/uL 200 MPV 9.0 - 12.7 fL 9.0 Neut% % 45.3 Abs Neut (ANC) 1.45 - 7.50 k/uL 1.50 Lymph% % 36.1 Abs Lymph 1.00 - 4.00 k/uL 1.20 Nicholas% % 11.7 Abs Nicholas <0.87 k/uL 0.39 Eosin% % 3.0 Abs Eosin <0.46 k/uL 0.10 Baso% % 3.6 Abs Baso <0.11 k/uL 0.12 (H) Immature Gran % % 0.3 IMMATURE GRANS (ABS) <0.10 k/uL <0.03 NRBC /100 WBC 0.0 Absolute nRBC <0.01 k/uL <0.01 DTYPE Auto Protein, Total 6.3 - 8.0 g/dL 7.8 Albumin 3.9 - 4.9 g/dL 5.0 (H) Calcium 8.5 - 10.2 mg/dL 9.6 Bilirubin, Total 0.2 - 1.3 mg/dL 0.4 Alkaline Phosphatase 34 - 123 U/L 171 (H) AST 13 - 35 U/L 18 ALT 7 - 38 U/L 12 Glucose 74 - 99 mg/dL 100 (H) BUN 7 - 21 mg/dL 37 (H) Creatinine 0.58 - 0.96 mg/dL 1.17 (H) Sodium 136 - 144 mmol/L 135 (L) Potassium 3.7 - 5.1 mmol/L 4.7 Chloride 97 - 105 mmol/L 101 CO2 22 - 30 mmol/L 22 Anion Gap 9 - 18 mmol/L 12 eGFR >=60 mL/min/1.73m 48 (L) Risk factors for coronary artery disease hyperlipidemia, hypertension, family history of CAD She denies lightheadedness, syncope, claudication, cough, and wheezing. Diet / Nutrition: limits carbs and sodium, increased fruits and veggies, rarely eats red meat Weight: no change since last visit Exercise: gym rat bike, elliptical, strength training, . PAST MEDICAL HISTORY Diagnosis Date A-fib ([facility]) Dr. Cody Breast cancer ([facility]) 1998 lobular, left side. Stage I, ER+/IN+/HER2-. Seeing Dr. Friend Chronic diastolic CHF (congestive heart failure) (HCC) Coronary artery disease mild Elevated alkaline phosphatase level Falls frequently GERD (gastroesophageal reflux disease) HTN (hypertension) Hyperparathyroidism (HCC) IPMN (intraductal papillary mucinous neoplasm) 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, estrogen receptor positive (HCC) 01/09/2017 Osteoarthritis, knee Pancreatic cyst 11/2019 Pancreatitis PONV (postoperative nausea and vomiting) Prediabetes Recurrent seroma of breast S/P ablation of atrial fibrillation 2010 Sleep apnea on CPAP Vaginal dryness Varicose veins of both lower extremities PAST SURGICAL HISTORY Procedure Laterality Date ABLATION CATHETER 09/2014 venous ablation left GSV AFIB ABLATION/PULM VEIN ISOLATION 2010 APPENDECTOMY 195 BREAST BIOPSY 1973 benign BREAST LUMPECTOMY HX Left 1999 left breast: 2/ nodes; s/p Adj Chemo & Adj Radt CARDIAC CATHETERIZATION HX 07/2014 ostail LAD 35% COLONOSCOPY 06/2016 5 mm polyp. repeat in 5 years EXC CYST/ABERRANT BREAST TISSUE OPEN 1/> LESION 03/21/2020 EXCISION MALIGNANT LESIONS,TRUNK,ARMS,LEGS Left 03/11/2017 Re-Excision of Left Mast site: negative for cancer MASTECTOMY, SIMPLE, COMPLETE Left 02/12/2017 Left Compl Mast: pT1cNx, ER/IN+, HER2 Neg IDC w/Radial Margin MIDLINE INSERTION/CONSULT 08/17/2020 NIPPLE EXPLORATION Right 2013 ductal excision Right breast OTHER 2007 left knee ligament replacement OTHER 07/2020 Pancreatic surgery PAST SURGICAL HISTORY OF 11/2019 pancreatic cyst fluid removal REMOVE CATARACT, INSERT LENS,EX Bilateral SOCIAL HISTORY Social History Tobacco Use Smoking status: Never Smokeless tobacco: Never Vaping Use Vaping Use: Never used Substance Use Topics Alcohol use: Yes Comment: rare, maybe one drink a month Drug use: No FAMILY HISTORY Problem Relation Age of Onset Breast Cancer Mother Heart Mother 95 Thyroid Mother Coronary Artery Disease Father 75 Prostate Cancer Brother pancreatic Prostate Cancer Brother Hypertension Brother Cancer Brother Mantle Cell Lymphnomas - dx last month Hypertension Brother Hypertension Brother Thyroid Brother Hypertension Brother Hypertension Brother Breast Cancer Maternal Aunt lived til 103 ALLERGIES: 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 [place] [Hydrocodone-* Vomiting Penicillins Other: See Comments blisters MEDICATIONS: spironolactone (ALDACTONE) 25 mg tablet^Take 0.5 tablets by mouth every other day.^Disp: ^Rfl: potassium chloride ER (KLOR-CON M20) 20 mEq tablet^Take 3 tablets by mouth once daily.^Disp: ^Rfl: palbociclib (IBRANCE) 100 mg tablet^Take 1 tablet (100 mg) by mouth once daily. Take for 21 days on, followed by 7 days off. Take with or without food.^Disp: 21 tablet^Rfl: 5 apixaban (ELIQUIS) 5 mg tab(s)^Take 1 tablet by mouth two times a day. (restart 12/09/19)^Disp: 180 tablet^Rfl: 1 metFORMIN (GLUCOPHAGE) 500 mg tablet^Take 1 tablet by mouth two times a day with meals.^Disp: 180 tablet^Rfl: 1 amLODIPine (NORVASC) 5 mg tablet^Take 1 tablet by mouth once daily.^Disp: 90 tablet^Rfl: 1 ketoconazole (NIZORAL) 2 % cream^Apply to the affected area twice daily^Disp: 30 g^Rfl: 1 CPAP^Pressure changed in my office to Autopap7-11 cm H2O, Heat Humidity & heated Tubing (JIMBO) suitable mask, [employer] supplies, opt Chinstrap, G47.33.^Disp: ^Rfl: furosemide (LASIX) 40 mg tablet^Take 1 tablet by mouth every 48 hours AND 2 tablets every 48 hours.^Disp: 45 tablet^Rfl: 11 sodium chloride 0.9 %, flush, (BD POSIFLUSH) syringe^Inject 2-10 mL intravenously as directed. For Echo procedure^Disp: 10 mL^Rfl: 0 (Patient not taking: Reported on 04/24/2023) biotin 5,000 mcg subl^Dissolve 1 tablet under the tongue twice daily.^Disp: ^Rfl: [id number]-[id number]-ast [id number] mg cap^Take 1 tablet by mouth once daily.^Disp: ^Rfl: melatonin 3 mg tablet^Take 1.75 tablets by mouth daily at bedtime.^Disp: ^Rfl: iv contrast (will be provided with radiology test)^CT Chest W -Inject, intravenously, once for 1 dose.No IV access, insert saline lock prior to the beginning of sedation, infusion, injection of imaging exam. Discontinue saline lock post exam. If Pt. has a central line or IVAD, may access for administration according to line specific nursing protocol. Once exam is complete flush line and de-access according to line specific nursing protocol in the CT contrast administration guidelines link.^Disp: 1 Each^Rfl: 0 iv contrast (will be provided with radiology test)^CT ABD/PEL -Inject, intravenously, once for 1 dose.No IV access, insert saline lock prior to the beginning of sedation, infusion, injection of imaging exam. Discontinue saline lock post exam. If Pt. has a central line or IVAD, may access for administration according to line specific nursing protocol. Once exam is complete flush line and de-access according to line specific nursing protocol in the CT contrast administration guidelines link.^Disp: 1 Each^Rfl: 0 enteric contrast (will be provided with radiology test)^For CT ABD/PEL W IVCON Routine order Administer, As Directed One Time Only, via Oral, Rectal, both Oral and Rectal, Enteric Tube, Stoma or Indwelling Catheter, Enteric Contrast as designated per enteric contrast guidelines^Disp: 1 Each^Rfl: 0 loratadine (CLARITIN) 10 mg tablet^Take 10 mg by mouth as needed.^Disp: ^Rfl: atorvastatin (LIPITOR) 20 mg tablet^Take 1 tablet by mouth daily at bedtime. For cholesterol.^Disp: 90 tablet^Rfl: 1 zoledronic acid (RECLAST) 5 mg/100 mL pgbk PREMIX piggyback^Inject 100 mL intravenously as directed.^Disp: 100 mL^Rfl: 0 metoprolol succinate ER (TOPROL XL) 25 mg 24 hr tablet^Take 1 tablet by mouth daily at bedtime.^Disp: 90 tablet^Rfl: 3 exemestane (AROMASIN) 25 mg tablet^Take 1 tablet by mouth once daily. TAKE AFTER A MEAL.^Disp: 90 tablet^Rfl: 3 acetaminophen (TYLENOL) 500 mg tablet^Take 1,000 mg by mouth as needed.^Disp: ^Rfl: Famotidine-Ca Carb-Mag Hydrox (PEPCID COMPLETE) 10-800-165 mg chew^Take 1 tablet by mouth once daily as needed.^Disp: ^Rfl: cholecalciferol, vitamin D3, (VITAMIN D3 ORAL)^Take 1,000 Units by mouth twice daily. ^Disp: ^Rfl: vit A/vit C/vit E/zinc/copper (PRESERVISION AREDS ORAL)^Take 1 tablet by mouth twice daily.^Disp: ^Rfl: gluc benitez/chondro benitez A/vit C/Mn (GLUCOSAMINE-CHONDROITIN COMPLX ORAL)^Take 1 tablet by mouth once daily. ^Disp: ^Rfl: Coenzyme Q10 300 mg cap^Take 300 mg by mouth once daily.^Disp: ^Rfl: REVIEW OF SYSTEMS: GENERAL: no fever, no chills, and no change in weight HEENT: no headaches, no hearing loss, no difficulty swallowing, no visual changes, no nose bleeds SKIN: no rashes, no lesions, and no ulcers RESPIRATORY: +SOB and orthopnea. no cough, no paroxysmal nocturnal dyspnea, no asthma, and no COPD CARDIOVASCULAR: CP, SOB, palpitations (rare), leg swelling intermittent GASTROINTESTINAL: no abdominal pain, no nausea, no vomiting, no difficulty or painful swallowing, and no melanotic stools GENITOURINARY: +increased frequency. no dysuria, and no nocturia MUSCULOSKELETAL: +muscle pain or myalgias and pain with walking NEUROLOGIC: +paresthesia in BL feet no tingling and no sensation of pins and needles HEMATOLOGY: no prolonged bleeding and no anemia ENDOCRINE: +excessive urination no cold or heat intolerance, no polyuria, no polydipsia, no goiter, no thyroid disease, and cold or heat intolerance PSYCH: no mood disorders and no recent psychosocial stressors PHYSICAL EXAMINATION: BP 134/71 (BP Site: Left Arm, BP Position: Sitting, BP Cuff Size: Regular Adult) Pulse 74 Ht 157.5 cm (5' 2 ) Wt 64 kg (141 lb) SpO2 98% BMI 25.79 kg/m General: Well appearing, in no acute distress, speaking in complete sentences. Skin: No clubbing, no cyanosis. Head/Eyes: Extra ocular movements intact Mouth: Teeth in good repair. Neck: JVP 15cm w prominent v-waves, no carotid bruits, carotids have a normal upstroke, no palpable thyromegaly. Lungs: Clear to auscultation and no rales Heart: Regular rhythm, PMI not displaced, Severe TR murmur USB PV Pulses:Pulses intact Abdomen: Soft, nontender, bowel sounds normal, no palpable organomegaly, no bruits. Extremities: No peripheral edema . Grade 2/4 distal pulses bilaterally. Edema Scale: No Musculoskeletal: Normal gait and ambulation Neuro: Oriented to time, place and person CARDIOVASCULAR MEDICINE TESTING: Electrocardiogram:pending Chest X-ray: pending Laboratory Testing: pending Echocardiogram:pending CT: pending IMPRESSION: It was my pleasure to see Ms. Contreras today regarding severe tricuspid valve regurgitation. Ms. Adan is a pleasant 78-year-old woman with a history of hypertension and hyperlipidemia, who has seen Dr. Daniela Chan in our Heart Failure Section for quite some time. Over the past half a year, she has had a progressive and significant functional decline by way of exertional dyspnea and fatigue. Mild lower extremity swelling. No exertional chest discomfort. Review of an echocardiogram perform in October shows normal left- and right-sided function, but severe tricuspid valve regurgitation with a pathology that is not entirely clear. This TR is certainly worse than it was on prior echocardiograms. Physical exam is as above. ASSESSMENTS AND PLANS: It was my pleasure to see Ms. Adan today regarding severe and symptomatic TR. I do think she would benefit functionally and possibly prognostically from fixing her TR. I am still awaiting a JOSE to see whether the anatomy is suitable for tricuspid valve clipping and a CT scan to see whether tricuspid replacement is appropriate. She is also scheduled for a coronary angiogram to make sure there is no severe concomitant CAD as well as a surgical visit regarding her surgical options. Once we have all of the above information, we will proceed accordingly. Obviously, in her case and given her age, a transcatheter option would be preferable to a surgical one. Please feel free to contact me with any questions. Sincerely yours, Humberto Wing M.D. I personally interviewed, confirmed and edited the above information as obtained by others. CONTACT INFORMATION: documented in this encounter [facility] 05-29-2023 History of Present illness Narrative [facility] [place] Department of Cardiovascular Medicine VIRTUAL VIDEO VISIT ESTABLISHED OUTPATIENT VISIT SERVICE DATE: 05/29/2023 Patient: Queenie Adan SERVICE TIME: 8:44 AM : 1945 This is a virtual video visit. It required patient-provider interaction for the medical decision making as documented below. Queenie Adan has consented to this video encounter. I have communicated my name and active licensure. The patient's identity and physical location were verified at the time of this visit. Either the patient or their legal cash application representative has been informed of the risks and benefits of -- and alternatives to -- treatment through a remote evaluation and consents to proceed with the evaluation remotely. Queenie Adan is a 78 year old female seen for cardiology evaluation CHIEF COMPLAINT Cardiology Evaluation HISTORY OF PRESENT ILLNESS Ms. Orquidea Adan is a 78 year old female who presents today for a cardiovascular medicine follow-up visit. 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 Overall doing ok - better with start of aldactone and change to lasix HAd fall a few weeks ago and has bruised fluts PAST MEDICAL HISTORY Diagnosis Date A-fib ([facility]) Dr. Cody Breast cancer ([facility]) 1998 lobular, left side. Stage I, ER+/IN+/HER2-. Seeing Dr. Friend Chronic diastolic CHF (congestive heart failure) (HCC) Coronary artery disease mild Elevated alkaline phosphatase level Falls frequently GERD (gastroesophageal reflux disease) HTN (hypertension) Hyperparathyroidism (HCC) IPMN (intraductal papillary mucinous neoplasm) 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, estrogen receptor positive (HCC) 01/09/2017 Osteoarthritis, knee Pancreatic cyst 11/2019 Pancreatitis PONV (postoperative nausea and vomiting) Prediabetes Recurrent seroma of breast S/P ablation of atrial fibrillation 2010 Sleep apnea on CPAP Vaginal dryness Varicose veins of both lower extremities PAST SURGICAL HISTORY Procedure Laterality Date ABLATION CATHETER 09/2014 venous ablation left GSV AFIB ABLATION/PULM VEIN ISOLATION 2010 APPENDECTOMY 1957 BREAST BIOPSY 1973 benign BREAST LUMPECTOMY HX Left 1998 left breast: 08/02 nodes; s/p Adj Chemo & Adj Radt CARDIAC CATHETERIZATION HX 07/2014 ostail LAD 35% COLONOSCOPY 06/2016 5 mm polyp. repeat in 5 years EXC CYST/ABERRANT BREAST TISSUE OPEN 1/> LESION 03/21/2020 EXCISION MALIGNANT LESIONS,TRUNK,ARMS,LEGS Left 03/11/2017 Re-Excision of Left Mast site: negative for cancer MASTECTOMY, SIMPLE, COMPLETE Left 02/12/2017 Left Compl Mast: pT1cNx, ER/IN+, HER2 Neg IDC w/Radial Margin MIDLINE INSERTION/CONSULT 08/17/2020 NIPPLE EXPLORATION Right 2012 ductal excision Right breast OTHER 2007 left knee ligament replacement OTHER 07/2020 Pancreatic surgery PAST SURGICAL HISTORY OF 11/2019 pancreatic cyst fluid removal REMOVE CATARACT, INSERT LENS,EX Bilateral FAMILY HISTORY Problem Relation Age of Onset Breast Cancer Mother Heart Mother 95 Thyroid Mother Coronary Artery Disease Father 75 Prostate Cancer Brother pancreatic Prostate Cancer Brother Hypertension Brother Cancer Brother Mantle Cell Lymphnomas - dx last month Hypertension Brother Hypertension Brother Thyroid Brother Hypertension Brother Hypertension Brother Breast Cancer Maternal Aunt lived til 103 Social History Tobacco Use Smoking status: Never Smokeless tobacco: Never Vaping Use Vaping Use: Never used Substance Use Topics Alcohol use: Yes Comment: rare, maybe one drink a month Drug use: No 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 [place] [Hydrocodone-* Vomiting Penicillins Other: See Comments blisters CURRENT MEDICATIONS palbociclib (IBRANCE) 100 mg tablet^Take 1 tablet (100 mg) by mouth once daily. Take for 21 days on, followed by 7 days off. Take with or without food.^Disp: 21 tablet^Rfl: 5 apixaban (ELIQUIS) 5 mg tab(s)^Take 1 tablet by mouth two times a day. (restart 12/09/19)^Disp: 180 tablet^Rfl: 1 metFORMIN (GLUCOPHAGE) 500 mg tablet^Take 1 tablet by mouth two times a day with meals.^Disp: 180 tablet^Rfl: 1 amLODIPine (NORVASC) 5 mg tablet^Take 1 tablet by mouth once daily.^Disp: 90 tablet^Rfl: 1 ketoconazole (NIZORAL) 2 % cream^Apply to the affected area twice daily^Disp: 30 g^Rfl: 1 CPAP^Pressure changed in my office to Autopap7-11 cm H2O, Heat Humidity & heated Tubing (JIMBO) suitable mask, [employer] supplies, opt Chinstrap, G47.33.^Disp: ^Rfl: spironolactone (ALDACTONE) 25 mg tablet^Take 0.5 tablets by mouth once daily.^Disp: 15 tablet^Rfl: 5 KLOR-CON M20 20 mEq tablet^TAKE 3 TABLETS BY MOUTH ONCE DAILY. EVERY OTHER DAY PATIENT TAKES 80MG^Disp: 270 tablet^Rfl: 2 furosemide (LASIX) 40 mg tablet^Take 1 tablet by mouth every 48 hours AND 2 tablets every 48 hours.^Disp: 45 tablet^Rfl: 11 sodium chloride 0.9 %, flush, (BD POSIFLUSH) syringe^Inject 2-10 mL intravenously as directed. For Echo procedure^Disp: 10 mL^Rfl: 0 (Patient not taking: Reported on 04/24/2023) biotin 5,000 mcg subl^Dissolve 1 tablet under the tongue twice daily.^Disp: ^Rfl: [id number]-wx-9-[id number]-yfb-pachtpu-ast [id number] mg cap^Take 1 tablet by mouth once daily.^Disp: ^Rfl: melatonin 3 mg tablet^Take 1.75 tablets by mouth daily at bedtime.^Disp: ^Rfl: iv contrast (will be provided with radiology test)^CT Chest W -Inject, intravenously, once for 1 dose.No IV access, insert saline lock prior to the beginning of sedation, infusion, injection of imaging exam. Discontinue saline lock post exam. If Pt. has a central line or IVAD, may access for administration according to line specific nursing protocol. Once exam is complete flush line and de-access according to line specific nursing protocol in the CT contrast administration guidelines link.^Disp: 1 Each^Rfl: 0 iv contrast (will be provided with radiology test)^CT ABD/PEL -Inject, intravenously, once for 1 dose.No IV access, insert saline lock prior to the beginning of sedation, infusion, injection of imaging exam. Discontinue saline lock post exam. If Pt. has a central line or IVAD, may access for administration according to line specific nursing protocol. Once exam is complete flush line and de-access according to line specific nursing protocol in the CT contrast administration guidelines link.^Disp: 1 Each^Rfl: 0 enteric contrast (will be provided with radiology test)^For CT ABD/PEL W IVCON Routine order Administer, As Directed One Time Only, via Oral, Rectal, both Oral and Rectal, Enteric Tube, Stoma or Indwelling Catheter, Enteric Contrast as designated per enteric contrast guidelines^Disp: 1 Each^Rfl: 0 loratadine (CLARITIN) 10 mg tablet^Take 10 mg by mouth as needed.^Disp: ^Rfl: atorvastatin (LIPITOR) 20 mg tablet^Take 1 tablet by mouth daily at bedtime. For cholesterol.^Disp: 90 tablet^Rfl: 1 zoledronic acid (RECLAST) 5 mg/100 mL pgbk PREMIX piggyback^Inject 100 mL intravenously as directed.^Disp: 100 mL^Rfl: 0 metoprolol succinate ER (TOPROL XL) 25 mg 24 hr tablet^Take 1 tablet by mouth daily at bedtime.^Disp: 90 tablet^Rfl: 3 exemestane (AROMASIN) 25 mg tablet^Take 1 tablet by mouth once daily. TAKE AFTER A MEAL.^Disp: 90 tablet^Rfl: 3 acetaminophen (TYLENOL) 500 mg tablet^Take 1,000 mg by mouth as needed.^Disp: ^Rfl: Famotidine-Ca Carb-Mag Hydrox (PEPCID COMPLETE) 10-800-165 mg chew^Take 1 tablet by mouth once daily as needed.^Disp: ^Rfl: cholecalciferol, vitamin D3, (VITAMIN D3 ORAL)^Take 1,000 Units by mouth twice daily. ^Disp: ^Rfl: vit A/vit C/vit E/zinc/copper (PRESERVISION AREDS ORAL)^Take 1 tablet by mouth twice daily.^Disp: ^Rfl: gluc benitez/chondro benitez A/vit C/Mn (GLUCOSAMINE-CHONDROITIN COMPLX ORAL)^Take 1 tablet by mouth once daily. ^Disp: ^Rfl: Coenzyme Q10 300 mg cap^Take 300 mg by mouth once daily.^Disp: ^Rfl: Answers submitted by the patient for this visit: Review of Systems Heart Failure (Submitted on 05/26/2023) Fever : No Night sweats: No Recent unintentional weight change: No Vision Disturbance: No Hearing Loss: No A cough: No Difficulty Breathing?: Yes Chest pain: No Leg Swelling: No Skipping or irregular heartbeats?: Yes Feel like passing out?: No Black tarry stools: No Nausea: No Diarrhea: No Swelling in your abdomen?: Yes Fill up quickly when you eat?: Yes Difficulty Urinating?: No Joint pain or stiffness: Yes Muscle aches: Yes A rash: No Dizziness: No Headaches: No PHYSICAL EXAMINATION: VIDEO EXAM: (if completed, performed via video enabled technology) No exam performed PATIENT ENTERED QUESTIONNAIRE SCORES PHQ-9 05/26/2023 PHQ-2 Score 2 PHQ-9 Score 7 FLAQUITO - 2/7 SCORES 01/26/2017 FLAQUITO-2 Score 0 PROMIS Global Health - (T-Scores - the mean of general population = 50. Five points is a clinically meaningful difference.) 05/04/2023 01/31/2023 10/31/2022 Physical T-Score 42.3 42.3 44.9 Mental T-Score 50.8 53.3 - WBC (k/uL) Date Value 05/27/2023 3.32 (L) RBC (m/uL) Date Value 05/27/2023 3.22 (L) Hemoglobin (g/dL) Date Value 05/27/2023 11.7 Hematocrit (%) Date Value 05/27/2023 34.6 (L) MCV (fL) Date Value 05/27/2023 107.5 (H) MCH (pg) Date Value 05/27/2023 36.3 (H) MCHC (g/dL) Date Value 05/27/2023 33.8 RDW-CV (%) Date Value 05/27/2023 14.8 Platelet Count (k/uL) Date Value 05/27/2023 200 MPV (fL) Date Value 05/27/2023 9.0 Glucose (mg/dL) Date Value 05/27/2023 100 (H) BUN (mg/dL) Date Value 05/27/2023 37 (H) Creatinine (mg/dL) Date Value 05/27/2023 1.17 (H) Sodium (mmol/L) Date Value 05/27/2023 135 (L) Potassium (mmol/L) Date Value 05/27/2023 4.7 Chloride (mmol/L) Date Value 05/27/2023 101 CO2 (mmol/L) Date Value 05/27/2023 22 Protein, Total (g/dL) Date Value 05/27/2023 7.8 Albumin (g/dL) Date Value 05/27/2023 5.0 (H) Calcium, Total (mg/dL) Date Value 05/27/2023 9.6 Alkaline Phosphatase (U/L) Date Value 05/27/2023 171 (H) Bilirubin, Total (mg/dL) Date Value 05/27/2023 0.4 AST (U/L) Date Value 05/27/2023 18 ALT (U/L) Date Value 05/27/2023 12 Hep C Antibody IA (no units) Date Value 02/16/2020 Negative URINALYSIS pH, Arterial Date Value Ref Range Status 08/06/2020 7.45 7.35 - 7.45 Final Specific [place], Ur Date Value Ref Range Status 05/13/2023 1.009 1.005 - 1.030 Final Glucose, Urine Date Value Ref Range Status 05/13/2023 Negative Negative Final Bilirubin, Urine Date Value Ref Range Status 05/13/2023 Negative Negative Final Ketones, Urine Date Value Ref Range Status 05/13/2023 Negative Negative Final Hemoglobin/Blood,Ur Date Value Ref Range Status 05/13/2023 Negative Negative Final Protein, Urine Date Value Ref Range Status 05/13/2023 Negative Negative Final WBC, Urine Date Value Ref Range Status 05/13/2023 0-5 /HPF 0-5 /HPF Final IMPRESSION: NYHA Functional Class: II Stage: B heart failure Target weight: Current? Ms. Orquidea Adan is a 78 year old female who presents today for a cardiovascular medicine follow-up visit. 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 She has worsening TR and volume overload in setting of DC of her meds due to her renal function PLAN AND RECOMMENDATIONS: Scheduled next week for testing for TV regurgitation On max tolerated GDMT I personally spent 30 minutes in total time involved in the management and care of this patient. Daniela Chan DO May 29, 2023 documented in this encounter [facility] 05-27-2023 Miscellaneous Notes Patient has been identified by name and date of : Yes Last office visit in this department: Visit date not found RX INSTRUCTIONS: Pharmacy initiated this request. No need to notify patient. Patient phones requesting refills as follows: Requested Prescriptions Pending Prescriptions Disp Refills palbociclib (IBRANCE) 100 mg tablet 21 tablet 5 Sig: Take 1 tablet (100 mg) by mouth once daily. Take for 21 days on, followed by 7 days off. Take with or without food. Please review and advise. Lu Root documented in this encounter [facility] 12-05-2023 Miscellaneous Notes Reviewed. Sw called patient in regards to covid home monitoring questionnaire that she completed. Patient had marked that she would like to speak with Sw regarding housing, food, transportation needs. Patient notes that I clicked on the wrong button, I do not have any of those needs. I am doing well. I did fall recently and have a sore butt, but I have been icing it and it feels fine. I am taking a [employer] student to coffee this afternoon and have a friend calling this morning. My life is blessed. Sw notes that if patient does have any needs in the future to let Dr. Negron and or Sw know. documented in this encounter [facility] 05-26-2023 Miscellaneous Notes Patient has been identified by name and date of : Yes Patient phones for refill(s): Requested Prescriptions Pending Prescriptions Disp Refills metFORMIN (GLUCOPHAGE) 500 mg tablet 180 tablet 1 Sig: Take 1 tablet by mouth two times a day with meals. amLODIPine (NORVASC) 5 mg tablet 90 tablet 1 Sig: Take 1 tablet by mouth once daily. Date of last office visit in primary care: 02/13/2023 Date of next office visit in primary care: 08/24/2023 Please advise. Thank you. Pratibha Crews LPN. documented in this encounter [facility] 05-11-2023 History of Present illness Narrative Diagnoses: 1) Breast cancer. 2) Hypercalcemia. HPI: Patient is a 78-year-old female with a past medical history significant for breast cancer, atrial fibrillation, coronary artery disease, hypertension, diastolic CHF, obstructive sleep apnea, GERD and pancreatic cyst. 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 2 of 12 nodes were positive. She underwent lumpectomy followed by adjuvant chemotherapy with AC followed by T. She then received adjuvant radiation followed by tamoxifen for 5 years. She was then diagnosed with a new primary breast cancer in the ipsilateral breast. She underwent mastectomy for what proved to be a [id number] ER+/IN+/HER2- breast cancer. The tumor was 1.6 cm. It was grade 3. Lymph nodes were not obtained secondary to her previous surgery. There was a positive radial margin and she underwent repeat excision of the margin with the pathology demonstrating fat necrosis but no malignant tissue. She was on anastrozole from May 2017 through January 2018. 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 Has h/o hypercalcemia dating to at least 07/24/2017. Found to have dilated pancreatic duct on US 08/2018 done for increased alk phos. CT Pancreas 09/10/2018: Pancreatic ductal dilatation with abrupt transition of duct caliber consistent with pancreatic ductal stricture. Different considerations includes benign and malignant stricture. Recommend further characterization with contrast-enhanced MR of the pancreas. MRI could also characterize the subcentimeter pancreatic head density noted in results. Right hepatic lobe low-attenuation density consistent with cysts noted on ultrasound. Subcentimeter LEFT hepatic lobe density most likely benign. Cardiomegaly. MRI Pancreas 09/14/2018: Significant dilation of the main pancreatic duct measuring up to 1.5 cm with associated multiple dilated sidebranches. Abrupt cut off within the neck and normal caliber of the main duct within the head. Benign or malignant stricturing would be the primary consideration. Endoscopic workup recommended. Mild central intrahepatic and extrahepatic biliary dilation. No choledocholithiasis. No adenopathy. EGD/EUS 10/12/2018: 20 mm cystic lesion was seen in the pancreatic body non-communicating with main duct. Fine needle aspiration for fluid performed. Pathology--no formal pathology or cytology, but fluid CEA normal but amylase significantly elevated. Repeat EGD/EUS 12/01/2019: Cyst 25 x 14 mm. Pathology: Very limited sample. Negative for malignant cells. MRI Pancreas 01/03/2020: Marked main pancreatic ductal dilation up to 1.7 cm in the body/tail with associated atrophy, mildly increased since 09/14/2018, with abrupt caliber change in the neck without associated mass. Multiple dilated side branches orcommunicating cysts are also unchanged or mildly increased. Differential considerations include a segmental main duct IPMN or stricture (i.e. from a prior episode of pancreatitis). She was advised to began exemestane in January 2019, but did not. Component Latest Ref Rng & Units 02/02/2018 08/26/2018 12/04/2019 12/05/2019 12/09/2019 12/09/2019 12/13/2019 12/30/2019 9:28 AM 9:28 AM Protein, Total 6.3 - 8.0 g/dL 7.1 7.5 6.1 (L) 6.0 (L) 7.2 7.1 7.4 Albumin 3.9 - 4.9 g/dL 4.7 4.6 3.6 (L) 3.5 (L) 4.1 4.2 4.3 Calcium 8.5 - 10.2 mg/dL 10.6 (H) 10.9 (H) 9.7 9.5 10.5 (H) 10.7 (H) 10.6 (H) Bilirubin, Total 0.2 - 1.3 mg/dL 0.9 0.9 1.3 1.4 (H) 0.7 0.7 0.6 Alkaline Phosphatase 34 - 123 U/L 127 (H) 146 (H) 159 (H) 187 (H) 215 (H) 217 (H) 203 (H) AST 13 - 35 U/L 25 24 15 16 26 25 39 (H) Glucose 74 - 99 mg/dL 83 102 (H) 111 (H) 86 89 94 103 (H) BUN 7 - 21 mg/dL 16 19 10 8 11 11 18 Creatinine 0.58 - 0.96 mg/dL 0.76 0.79 0.48 (L) 0.53 (L) 0.69 0.67 0.70 Sodium 136 - 144 mmol/L 139 142 140 141 140 141 140 Potassium 3.7 - 5.1 mmol/L 4.2 3.9 3.6 (L) 3.2 (L) 4.1 4.3 4.1 Chloride 97 - 105 mmol/L 99 103 103 102 100 100 100 CO2 22 - 30 mmol/L 23 28 24 26 30 29 26 Anion Gap 9 - 18 mmol/L 17 11 13 13 10 12 14 ALT 7 - 38 U/L 22 20 23 26 23 23 38 eGFR- >60 >60 >60 >60 >60 >60 >60 eGFR-All Other Races . >60 >60 >60 >60 >60 >60 >60 PTH, Intact 15 - 65 pg/mL 58 PTH Related Peptide 0.0 - 3.4 pmol/L 4.3 (H) CA19-9 <36 U/mL 18 Whole-body bone scan on 12/22/2019 demonstrated no suspicious area of radiotracer uptake suggesting metastatic disease to the bones. PET 01/24/2020: NECK: No FDG avid neoplastic process. No mass, adenopathy, or fluid collection. CHEST: Status post left mastectomy. Small non hypermetabolic fluid attenuation density in the left anterior chest wall/breast in the subcutaneous tissues, abutting the skin. Differential considerations include possible small focus of recurrence, infected/inflamed sebaceous cyst. Mammogram/ultrasound of the left breast may be of help for further evaluation. ABDOMEN/PELVIS: No FDG avid neoplastic process. No mass, adenopathy, or fluid collection. EXTREMITIES/SKELETON: No FDG avid osseous process. No destructive/traumatic bony abnormality. Previous therapy for breast cancer: 1) AC followed by T. 2) Anastrozole. 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 Pathology: Left mastectomy skin, incision site marked #1, excision (A) - Stromal scar with foreign body giant cell reaction. 2. Left mastectomy skin, area marked #2, excisional biopsy (B) - Invasive ductal carcinoma involving dermis and subcutaneous tissue (please see comment). COMMENT 2. The invasive carcinoma is estimated to involve an area measuring 1.2 cm and is present at the periphery of the tissue edges. The invasive carcinoma is a Westfall Grade 3; definitive dermal angiolymphatic space invasion is not identified. Immunohistochemical stains for estrogen and progesterone receptors, as well as HER2 will be performed and the results reported separately. Estrogen Receptor (ER) Positive (99%) Average stain intensity: Strong Status of internal controls: Internal control cells absent External controls: Appropriately reactive Progesterone Receptor (PgR) Positive (50%) Average stain intensity: Moderate Status of internal controls: Internal control cells absent External controls: Appropriately reactive HER2 (ERBB2) IMMUNOHISTOCHEMISTRY ASSAY Interpretation: NEGATIVE for HER2 (ERBB2) Expression Score: 1+ Subsequently underwent parathyroid exploration where she was found to have 4 gland hyperplasia with enlarged abnormal appearing glands. The right lower gland was smallest and appeared most normal so that was left as a remnant. The other 3 glands were excised. Pathology: A. Parathyroid gland, right upper, parathyroidectomy - Mildly hypercellular parathyroid. B. Parathyroid gland, left upper, parathyroidectomy - Focally hypercellular parathyroid. C. Parathyroid gland, right lower, parathyroidectomy - Normocellular parathyroid. Presents for ongoing oncologic management. Underwent reexcision on 03/21. Pathology: Left breast, ductal mass, excision - Invasive ductal carcinoma, clinically recurrent, Westfall grade 2, measuring 8 mm in greatest dimension (please see comment and synoptic report). - Large organizing hematoma and stromal scar. - Biopsy site reparative changes. COMMENT The prior excisional biopsy ([id number]) contained a 12 mm focus of invasive ductal carcinoma. As such, the final pT assignment is pT1c. SYNOPTIC REPORT OF [facility] PATHOLOGIC FINDINGS DUCTAL MASS, LEFT BREAST: BREAST INVASIVE CARCINOMA WORKSHEET Part: A Procedure: Excision (less than total mastectomy) Specimen Laterality: Left Tumor size: Size of largest invasive carcinoma: Greatest dimension of largest focus of invasion >1 mm: 8 mm Tumor Focality: Single focus of invasive carcinoma Histologic Type of Invasive Carcinoma: Invasive carcinoma of no special type (ductal, not otherwise specified) Histologic Grade: Glandular (Acinar) / Tubular Differentiation: Score 3 Nuclear Pleomorphism: Score 2 Mitotic Rate: Score 1 Overall Grade: Grade II Ductal Carcinoma In Situ: Not identified Tumor Extension: Skin: Invasive carcinoma directly invades into the dermis or epidermis without skin ulceration (this does not change the T classificationof invasive carcinomas) Nipple: Not applicable, no nipple is present Skeletal muscle: Free of carcinoma Invasive Carcinoma Margins: Margins uninvolved by invasive carcinoma Distance from closest margin: 9 mm Closest margin: Deep DCIS Margins: Not applicable (no DCIS in specimen) Lymph Nodes: No lymph nodes submitted or found Treatment Effect: No known presurgical therapy Lymph-Vascular Invasion: Not identified Pathologic Stage Classification (pTNM,AJCC 8th ed) TNM Descriptor(s): r (recurrent) Primary Tumor (Invasive Carcinoma) (pT): pT1c Regional Lymph Nodes (pN): Modifier: Not applicable Category (pN): pNX Distant metastasis: Distant Metastasis (pM) Not applicable/Not confirmed pathologically in this case Estrogen & progesterone receptors: Previously performed and reported as follows: Estrogen receptor: Positive (99%, strong) Progesterone receptor: Positive (50%, moderate) Specimen number #: [id number] (HER2) ERBB2 Status: Previously performed and reported as follows: HER2:Negative (1+) Previous therapy for metastatic breast cancer: 1) RT to chest wall completed 06/12/2020. Current therapy for metastatic breast cancer: 1) Exemestane. 2) Palbociclib. Dose reduced 01/2023 secondary to fatigue and decline in appetite. Presents for ongoing oncologic management. Interim history: Appetite a little better. Undergoing evaluation for tricuspid regurgitation. Scheduled for catheterization. Was seen by nephrology. HTN meds adjusted. Her only side effect seems to be fatigue and decreased appetite. She makes and effort to eat healthy though and is maintaining weight. PMH, medications and allergies personally reviewed by me today. Any changes documented in appropriate section. ROS: Constitutional: Denies episodes of fever and night sweats. Neuro: Denies FERGUSON, vertigo, dizziness and imbalance. HEENT: No recent change in voice, vision or hearing. Resp: Denies cough, wheeze and hemoptysis. Denies shortness of breath at rest. Denies WALKER. CVS: Denies exertional chest pain, PND, orthopnea and LE edema. GI: Denies dysgeusia. Denies symptoms of stomatitis. Denies dysphagia and odynophagia. Denies reflux, n/v, change in bowel habits. : Denies dysuria or gross hematuria. No symptoms of bladder outlet obstruction. Endo: Denies hot flashes. Denies polyuria and polydipsia. Denies heat and cold intolerance. Musculoskeletal: Denies bone, back, joint and muscular pain. Derm: Denies rash. Denies jaundice and diffuse pruritis. Heme: Denies unusual bleeding and unexplained bruising. Psych: Normal mood. Family history: 1) Twin brother--Stage IIA thymoma. 2) Brother-- of pancreas cancer age 81. Three other brothers--Prostate cancer. All alive. PHYSICAL EXAM: Vitals: Blood pressure 122/71, pulse 64, temperature 36.4 C (97.6 F), height 157 cm (5' 1.81 ), weight 65.5 kg (144 lb 8 oz), SpO2 100 %. Well-appearing and in no acute distress. EYES: Sclerae are anicteric bilaterally. LYMPHATIC: There is no palpable cervical, supraclavicular, axillary or inguinal adenopathy. RESPIRATORY: Normal respiratory excursion. CARDIOVASCULAR: Rhythm is regular. BREAST: Declined nick setter. Right breast no palpable abnormality. Left mastectomy site well-healed. Transverse scar and small scar axilla. No induration, subcutaneous nodule or dermal nodules identified. ABDOMEN: The abdomen is nondistended. Extremities: No swelling or edema. SKIN: No jaundice or rash. No petechiae. ASSESSMENT/PLAN: (C50.512, Z17.0) 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, estrogen receptor positive (HCC) (primary encounter diagnosis) Assessment: -The patient is a 78-year-old female who has a past medical history significant for ER positive breast cancer who had ipsilateral recurrence followed by mastectomy and subsequent recurrence of the skin of the left chest wall. -Biopsy of left mastectomy site dermal lesion demonstrated ER/IN positive, HER-2 negative breast cancer. Margins were positive. PET scan suggested no other disease. -Underwent re-excision. -Received and tolerated post excision radiation well. 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 So avoiding letrozole since chemically similar to anastrozole. -She continues to tolerate exemestane and palbociclib well with dose reduction of palbociclib which has helped improve her appetite. -Diagnosed with tricuspid regurgitation and will be undergoing cardiac catheterization on 06/05 for potential procedure to clip the valve. Procedure itself will be scheduled after the catheterization. -Chronic kidney disease now under the care of nephrology. Etiology in part attributed to IV contrast for CT scan. -Reviewed the results of her screening mammogram from February. First 1 did not include the entire right breast. Follow-up screening mammogram no abnormality. -Reviewed the results of the PET scan. Right hilar lymph node potentially concerning for malignancy. Previously had paratracheal lymph nodes at station 4 and hilar lymph node station 11 biopsied in the summer 2020. GABRIEL. -Increasing trend in tumor markers. -Because of her other medical issues in particular tricuspid regurgitation, I recommended continuing current care and obtaining breast PET scan in June. If lymph nodes still of concern then will discuss with Dr. Decker feasibility of bronchoscopic biopsy. Plan: -Continue exemestane. -Continue palbociclib to 100 mg. -Monthly lab work CBC/CMP. -FES PET then office visit in later June. Portions of this documentation were copied and pasted from previous office visit notes in order to provide a cohesive continuity of the history. The note has been reviewed and edited and updated as necessary. I spent a total of 30 minutes on the date of the service which included preparing to see the patient, [id number] patient care, completing clinical documentation, obtaining and/or reviewing separately obtained history, performing a medically appropriate examination, counseling and educating the patient/family/caregiver, ordering medications, tests, or procedures, communicating with other HCPs (not separately reported), independently interpreting results (not separately reported), and communicating results to the patient/family/caregiver. Vladimir Thao DO documented in this encounter [facility] 05-04-2023 Note HNO ID: [id number] Author: Tracy Jurado RT(R) Service: Nuclear Medicine Author Type: Technologist Type: Progress Notes Filed: 05/04/2023 8:49 AM Note Text: RADIOLOGY SERVICE PROGRESS NOTE SERVICE DATE: 05/04/2023 SERVICE TIME: 8:48 AM PATIENT IDENTITY VERIFICATION COMPLETED USING TWO (2) STANDARD IDENTIFIERS: Name and Date of confirmed by patient verbally FALL SCREENING: Has the patient had 2 falls in the last year or 1 fall with injury or currently using an Ambulatory Assistive Device (Walker, Cane, Wheelchair, Crutches, etc.)? No PATIENT GENDER DATA: .female ALLERGIES: NA MEDICATIONS REVIEWED: Not applicable PATIENT RELEVANT IMPLANT DATA REVIEWED: Not Applicable CREATININE: Creatinine Date Value Ref Range Status 04/30/2023 1.13 (H) 0.58 - 0.96 mg/dL Final 04/22/2023 1.25 (H) 0.58 - 0.96 mg/dL Final 04/09/2023 1.61 (H) 0.58 - 0.96 mg/dL Final Estimated Glomerular Filtration Rate Date Value Ref Range Status 04/30/2023 50 (L) >=60 mL/min/1.73m? Final Comment: Estimated Glomerular Filtration Rate (eGFR) is calculated using the 2020 CKD-EPI creatinine equation. This equation utilizes serum creatinine, sex, and age as parameters. The creatinine assay has traceable calibration to isotope dilution-mass spectrometry. Refer to KDIGO guidelines for clinical interpretation. In patients with unstable renal function, e.g. those with acute kidney injury, the eGFR may not accurately reflect actual GFR. eGFR- Date Value Ref Range Status 07/12/2021 >60 Final P.O.C.T. RESULTS: N/A May 04, [address] PERFORMED: No IV SITE: Ambulatory: NM only - direct IV injection in the Right WRIST POST EXAM PIV STATUS: Discontinued PROCEDURE TYPE: NM INJECT: PET/CT BODY SCAN. 11 mCi F18 FDG. No other medications given.. ADMINISTRATION TIME: 0840 PATIENT DISCHARGED TO: Ambulatory patient, left MA department area. A Diagnostic radioactive procedure has taken place, with no further precautions necessary other than routine body substance precautions. More information regarding radiation safety can be found using this link: [email or web address] [email or web address] SIGNATURE: RT Maame(R) PATIENT NAME: Queenie Adan DATE: May 04, 2023 TIME: 8:48 AM PAGER/CONTACT #: [facility] 05-04-2023 History of Present illness Narrative RADIOLOGY SERVICE PROGRESS NOTE SERVICE DATE: 05/04/2023 SERVICE TIME: 8:48 AM PATIENT IDENTITY VERIFICATION COMPLETED USING TWO (2) STANDARD IDENTIFIERS: Name and Date of confirmed by patient verbally FALL SCREENING: Has the patient had 2 falls in the last year or 1 fall with injury or currently using an Ambulatory Assistive Device (Walker, Cane, Wheelchair, Crutches, etc.)? No PATIENT GENDER DATA: .female ALLERGIES: NA MEDICATIONS REVIEWED: Not applicable PATIENT RELEVANT IMPLANT DATA REVIEWED: Not Applicable CREATININE: Creatinine Date Value Ref Range Status 04/30/2023 1.13 (H) 0.58 - 0.96 mg/dL Final 04/22/2023 1.25 (H) 0.58 - 0.96 mg/dL Final 04/09/2023 1.61 (H) 0.58 - 0.96 mg/dL Final Estimated Glomerular Filtration Rate Date Value Ref Range Status 04/30/2023 50 (L) >=60 mL/min/1.73m Final Comment: Estimated Glomerular Filtration Rate (eGFR) is calculated using the 2020 CKD-EPI creatinine equation. This equation utilizes serum creatinine, sex, and age as parameters. The creatinine assay has traceable calibration to isotope dilution-mass spectrometry. Refer to KDIGO guidelines for clinical interpretation. In patients with unstable renal function, e.g. those with acute kidney injury, the eGFR may not accurately reflect actual GFR. eGFR- Date Value Ref Range Status 07/12/2021 >60 Final P.O.C.T. RESULTS: N/A May 04, [address] PERFORMED: No IV SITE: Ambulatory: NM only - direct IV injection in the Right WRIST POST EXAM PIV STATUS: Discontinued PROCEDURE TYPE: NM INJECT: PET/CT BODY SCAN. 11 mCi F18 FDG. No other medications given.. ADMINISTRATION TIME: 0840 PATIENT DISCHARGED TO: Ambulatory patient, left NM department area. A Diagnostic radioactive procedure has taken place, with no further precautions necessary other than routine body substance precautions. More information regarding radiation safety can be found using this link: [email or web address] SIGNATURE: RT Maame(Emily) PATIENT NAME: Queenie Adna DATE: May 04, 2023 TIME: 8:48 AM PAGER/CONTACT #: documented in this encounter [facility] 04-27-2023 Note HNO ID: [id number] Author: Magalie Clark Service: ? Author Type: ? Type: Progress Notes Filed: 04/27/2023 3:38 PM Note Text: Sent to Scheduling [facility] 04-27-2023 History of Present illness Narrative Sent to Scheduling documented in this encounter [facility] 04-24-2023 Note [facility] 04-17-2023 Note HNO ID: [id number] Author: Magalie Clark Service: ? Author Type: ? Type: Progress Notes Filed: 04/17/2023 10:32 AM Note Text: Resent to operating room scheduler. [facility] 04-17-2023 History of Present illness Narrative Resent to operating room scheduler. documented in this encounter [facility] 04-15-2023 Miscellaneous Notes I spoke w the patient. Pt. Scheduled for Triluminate (TV Clip)/ TTVR (TRISCEND) Eval for 06/04, 06/05 and 06/08. Appt reminder/instructions mailed to pt. Radha documented in this encounter [facility] 04-14-2023 Miscellaneous Notes Patient called but there was no answer. Detailed VM left for pt to call us back. Patient is to be scheduled for a 3 day Triluminate (TV Clip)/ TTVR (TRISCEND) Evaluation Radha documented in this encounter [facility] 04-13-2023 History of Present illness Narrative STRUCTURAL REVIEW FORM Orders placed by Dr. Chan on 03/23/2023 Records Reviewed: 04/13/2023 Appt request sent: 04/14/2023 Pt. Name: Queenie Adan Records in [facility] have been reviewed. Severe TR. Request has been sent to the operating room scheduler who will arrange an appointment schedule. A transcatheter therapies packet and schedule will be mailed to patient's home address in ~ 2-4 weeks. PLEASE NOTE: Appointment schedule being sent to the patient will be for CONSULTATION AND TESTING.All studies will be reviewed by the multidisciplinary valve team members and any recommended transcatheter therapies will be schedule at a later date. 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 None noted A/C or known contraindication to AC: On Eliquis, no contraindication Relevant Testing Echo: 10/22/2022: LEFT VENTRICLE The left ventricle is normal in size. There is moderate left ventricular hypertrophy. Left ventricular systolic function is normal. Global LV myocardial strain is borderline abnormal. Left ventricular diastolic function was not evaluated due to AF. Mitral annular lateral E/e': 10.0. Mitral annular septal E/e': 13.3. Wall Motion: All scored segments are normal. RIGHT VENTRICLE The right ventricle is normal in size. Right ventricular systolic function is normal. RV systolic tissue Doppler velocity is 9.7 cm/s. Tricuspid annular displacement is 1.7 cm. Estimated right ventricular systolic pressure is 56 mmHg consistent with moderate pulmonary hypertension. Estimated right atrial pressure is 15 mmHg based on IVC assessment. LEFT ATRIUM The left atrial cavity is severely dilated. RIGHT ATRIUM The right atrial cavity is dilated. Inferior Vena Cava: The inferior vena cava appears dilated measuring 2.4 cm. The vessel decreases less than 50 percent with inspiration. MITRAL VALVE There is mild (1+ - 2+) mitral valve regurgitation. There is mild thickening. The average mitral E/e' ratio is 11.6. TRICUSPID VALVE There is severe (3+ - 4+) tricuspid valve regurgitation. There is mild thickening. RYAN(PA) is 22 mm . The hepatic venous pattern showed reversed systolic flow. AORTIC VALVE There is trace (trace - 1+) aortic valve regurgitation. Tricuspid aortic valve. There is moderate thickening. There is mild calcification. Referred by: Dr. 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 Wing CT Cardiac w IVCON DAY TWO: Please schedule left and right cardiac catheterization with an Elevator Service Technician ONLY (Dr. Escobedo, Dr. Clifton, Dr. Wing, Dr. Rahman, Dr. Villavicencio, Dr. Peña, Dr. Borges, Dr. Novak, Dr. Sotomayor, Dr. Scanlon, Dr. Majano, and Dr. Garibay) DAY THREE: Please schedule AFTER MD consult appointment: JOSE Please schedule in-person visit with cardiac surgeon: Dr. Johnson or Dr. Wilson / Dr. Stephens / Dr. Martínez / Dr. Gannon / Dr. Simms / Dr. Hannah. Appt Note: STVR vs TTVR Eval [facility] Please communicate appointment schedule to patient / patient family member Please include dental clearance form with the appointment packet Thank You Randee Rodriguez APRN.EUNICE documented in this encounter [facility] 04-07-2023 Note HNO ID: [id number] Author: Magalie Clark Service: ? Author Type: ? Type: Progress Notes Filed: 04/07/2023 12:53 PM Note Text: Request to operating room scheduler. [facility] 04-07-2023 History of Present illness Narrative Request to operating room scheduler. documented in this encounter [facility] 04-06-2023 Miscellaneous Notes Spoke with patient and scheduled. Office notes adjusted. Kizzy June Per Dr. Thao please cancel CT/bone scan and schedule PET scan prior to next OV. Follow up with Dr. Thao as scheduled. Thank you. Nimisha Aleman APRN.SAWMILL 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 documented in this encounter [facility] 04-02-2023 Miscellaneous Notes Call from patient requesting refill. Requested Prescriptions Pending Prescriptions Disp Refills torsemide (DEMADEX) 20 mg tablet 180 tablet 3 Sig: Take 1 tablet by mouth once daily. Take an additional tablet as needed for weight gain. Patient last seen 03/23/23 Jose Duenas documented in this encounter [facility] 03-23-2023 Note [facility] 03-17-2023 Miscellaneous Notes March 18, 2023 PID: [id number] Queenie Adan [address] [place] [address] Dear Ms. Orquidea Adan, We are pleased to inform you that the results of your recent breast imaging exam on 03/17/2023 are normal. Early detection of cancer is very important. We also understand recommendations regarding breast cancer screening are controversial. Please discuss with your primary care provider which strategy is best for you and whether a mammogram is right for you. Your imaging studies and report will be kept on file at [facility] as part of your permanent medical record and are available for your continuing care. Thank you for allowing us to help in meeting your health care needs. Sincerely, Dr. Zapata Interpreting Radiologist [facility] (Normal over 40) documented in this encounter [facility] 03-15-2023 Miscellaneous Notes Patient is currently scheduled for this on Thursday03/17/23. Radiology called and scheduled patient on Thursday03/13/23. July Root Can let her know that nothing abnormal was found on the mammogram but the radiologist recommended a repeat mammogram because they did not visualize the breast in its entirety on one of the views. I placed an order for screening mammogram. Not sure if the radiologist wants screening or diagnostic mammogram. Check with them. Vladimir Thao DO documented in this encounter [facility] 03-11-2023 Note [facility] 03-11-2023 History of Present illness Narrative Radiology Service Progress Note PATIENT NAME: Queenie Adan DATE OF SERVICE: March 11, 2023 TIME: 10:04 AM PATIENT IDENTITY VERIFICATION COMPLETED USING TWO (2) IDENTIFIERS: Name and Date of confirmed by patient verbally. FALL SCREENING: Has the patient had 2 falls in the last year or 1 fall with injury or currently using an Ambulatory Assistive Device (Walker, Cane, Wheelchair, Crutches, etc.)? No PATIENT GENDER DATA: Female. status: : No status: NO. PATIENT RELEVANT IMPLANT DATA REVIEWED: Not Applicable RADIOLOGY DEPARTMENT: Mammography PERIPHERAL IV DATA: Not applicable SIGNED BY: Roberta Avendano March 11, 2023 10:04 AM documented in this encounter [facility] 03-05-2023 Note [facility] 03-05-2023 History of Present illness Narrative Radiology Service Progress Note PATIENT NAME: Queenie Adan DATE OF SERVICE: March 05, 2023 TIME: 12:13 PM PATIENT IDENTITY VERIFICATION COMPLETED USING TWO (2) IDENTIFIERS: Name and Date of confirmed by patient verbally. FALL SCREENING: Has the patient had 2 falls in the last year or 1 fall with injury or currently using an Ambulatory Assistive Device (Walker, Cane, Wheelchair, Crutches, etc.)? No PATIENT GENDER DATA: Female. status: : No status: NO. PATIENT RELEVANT IMPLANT DATA REVIEWED: Not Applicable RADIOLOGY DEPARTMENT: Ultrasound PERIPHERAL IV DATA: Not applicable SIGNED BY: Salina Veronica RDMS March 05, 2023 12:13 PM documented in this encounter [facility] 02-25-2023 Note [facility] 02-25-2023 Instructions Fish Arreola MD - 02/25/2023 10:00 AM EDT Stop taking ramipril and spironolactone Also please hold metformin, Lasix and spironolactone on the day of contrast use. Avoid NSAIDs (Ibuprofen, Motrin, Alleve, Advil, Naproxen, Meloxicam/Mobic, Diclofenac, Goodies powder, BC powder etc) Drink around 48 ounces of water/fluids per day. Low salt diet (<2 gm sodium per day) Monitor BP at home. Blood pressure Target <130/80 mm Hg. Inform us through [employer] if your blood pressure is not at target consistently. Get laboratory tests done in one week and then every 3 months documented in this encounter [facility] 02-25-2023 History of Present illness Narrative [facility] SERVICE DATE: 02/25/2023 REASON FOR CONSULT: I am asked to see this patient in consultation for my opinion regarding CKD. My recommendations will be communicated by way of shared medical record, fax, or mail. REQUESTING PHYSICIAN: Melanie Strong APRN.C* PRIMARY CARE PHYSICIAN: Tala Negron MD CHIEF COMPLAINT: CKD HPI: 78-year-old female with medical history significant for hypertension, osteoarthritis of the knee, CAMRYN on CPAP, CAD, chronic diastolic heart failure, varicose veins, history of breast cancer, Primary hyperparathyroidism (s/p parathyroidectomy in 2020) has been referred for CKD. She is accompanied by her friend today. HTN for around 20 years, mostly under control; more recently has been on the lower. She was first diagnosed with left sided breast cancer back in 1998 when she had lumpectomy, chemo and radiation and tamoxifen; She was on anastrozole from May 2017 through January 2018. 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 Currently she is on Ibrance and exemestane. She has been getting CT scans with contrast every 6 months (initially it was every 6 months). No h/o NSAID use. No h/o hematuria, dysuria. She does have urgency and frequency related to diuretics use. No h/o recurrent diarrhea or vomiting. No history of uwqf-lzm-zthguqm meds use or herbal meds use. No history of renal stones. No recent hospitalizations. Review of the labs show that patient's creatinine has been elevated since around 02/2022 when creatinine diane to 1.0 from 0.8. Since then it has progressively been worse. Last set of labs are from 02/13/2023 with creatinine of 1.51, BUN 43, sodium 135, EGFR 35 mill per minute, hemoglobin 10.8, Patient is on amlodipine 5 mg daily, spironolactone 25 mg daily, ramipril 10 mg twice daily, metoprolol succinate 25 mg daily, furosemide 40 mg and 80 mg on alternate days, Ibrance, Eliquis 5 mg twice daily, metformin 500 mg twice daily, atorvastatin 20 mg daily, Mobic last, azithromycin 25 mg daily. Monitors blood pressure at home. Readings: mostly low 100/55. Eats mostly cooked food at home. Does not add extra salt to the food. No recent changes in body weight (target wt of around 140 lbs as per office assistant receptionist) PAST MEDICAL HISTORY: PAST MEDICAL HISTORY Diagnosis Date A-fib ([facility]) Dr. Cody Breast cancer ([facility]) 1998 lobular, left side. Stage I, ER+/IN+/HER2-. Seeing Dr. Friend Chronic diastolic CHF (congestive heart failure) (HCC) Coronary artery disease mild Elevated alkaline phosphatase level Falls frequently GERD (gastroesophageal reflux disease) HTN (hypertension) Hyperparathyroidism (HCC) IPMN (intraductal papillary mucinous neoplasm) 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, estrogen receptor positive (HCC) 01/09/2017 Osteoarthritis, knee Pancreatic cyst 11/2019 Pancreatitis PONV (postoperative nausea and vomiting) Prediabetes Recurrent seroma of breast S/P ablation of atrial fibrillation 2009 Sleep apnea on CPAP Vaginal dryness Varicose veins of both lower extremities PAST SURGICAL HISTORY: PAST SURGICAL HISTORY Procedure Laterality Date ABLATION CATHETER 09/2014 venous ablation left GSV AFIB ABLATION/PULM VEIN ISOLATION 2010 APPENDECTOMY 1957 BREAST BIOPSY 1973 benign BREAST LUMPECTOMY HX Left 1999 left breast: 08/02 nodes; s/p Adj Chemo & Adj Radt CARDIAC CATHETERIZATION HX 07/2014 ostail LAD 35% COLONOSCOPY 06/2016 5 mm polyp. repeat in 5 years EXC CYST/ABERRANT BREAST TISSUE OPEN LESION 03/21/2020 EXCISION MALIGNANT LESIONS,TRUNK,ARMS,LEGS Left 03/11/2017 Re-Excision of Left Mast site: negative for cancer MASTECTOMY, SIMPLE, COMPLETE Left 02/12/2017 Left Compl Mast: pT1cNx, ER/IN+, HER2 Neg IDC w/Radial Margin MIDLINE INSERTION/CONSULT 08/17/2020 NIPPLE EXPLORATION Right 2013 ductal excision Right breast OTHER 2007 left knee ligament replacement OTHER 07/2020 Pancreatic surgery PAST SURGICAL HISTORY OF 11/2019 pancreatic cyst fluid removal REMOVE CATARACT, INSERT LENS,EX Bilateral FAMILY HISTORY: FAMILY HISTORY Problem Relation Age of Onset Breast Cancer Mother Heart Mother 95 Thyroid Mother Coronary Artery Disease Father 75 Prostate Cancer Brother pancreatic Prostate Cancer Brother Hypertension Brother Cancer Brother Mantle Cell Lymphnomas - dx last month Hypertension Brother Hypertension Brother Thyroid Brother Hypertension Brother Hypertension Brother Breast Cancer Maternal Aunt lived til 103 SOCIAL HISTORY: Social History Tobacco Use Smoking status: Never Smokeless tobacco: Never Vaping Use Vaping Use: Never used Substance Use Topics Alcohol use: Yes Comment: rare, maybe one drink a month Drug use: No MEDICATIONS: palbociclib (IBRANCE) 100 mg tablet^Take 1 tablet (100 mg) by mouth once daily. Take for 21 days on, followed by 7 days off. Take with or without food.^Disp: 21 tablet^Rfl: 5 iv contrast (will be provided with radiology test)^CT Chest W -Inject, intravenously, once for 1 dose.No IV access, insert saline lock prior to the beginning of sedation, infusion, injection of imaging exam. Discontinue saline lock post exam. If Pt. has a central line or IVAD, may access for administration according to line specific nursing protocol. Once exam is complete flush line and de-access according to line specific nursing protocol in the CT contrast administration guidelines link.^Disp: 1 Each^Rfl: 0 iv contrast (will be provided with radiology test)^CT ABD/PEL -Inject, intravenously, once for 1 dose.No IV access, insert saline lock prior to the beginning of sedation, infusion, injection of imaging exam. Discontinue saline lock post exam. If Pt. has a central line or IVAD, may access for administration according to line specific nursing protocol. Once exam is complete flush line and de-access according to line specific nursing protocol in the CT contrast administration guidelines link.^Disp: 1 Each^Rfl: 0 enteric contrast (will be provided with radiology test)^For CT ABD/PEL W IVCON Routine order Administer, As Directed One Time Only, via Oral, Rectal, both Oral and Rectal, Enteric Tube, Stoma or Indwelling Catheter, Enteric Contrast as designated per enteric contrast guidelines^Disp: 1 Each^Rfl: 0 apixaban (ELIQUIS) 5 mg tab(s)^Take 1 tablet by mouth twice daily. (restart 12/09/19)^Disp: 180 tablet^Rfl: 1 loratadine (CLARITIN) 10 mg tablet^Take 10 mg by mouth once daily.^Disp: ^Rfl: metFORMIN (GLUCOPHAGE) 500 mg tablet^Take 1 tablet by mouth twice daily with meals.^Disp: 180 tablet^Rfl: 1 amLODIPine (NORVASC) 5 mg tablet^Take 1 tablet by mouth once daily.^Disp: 90 tablet^Rfl: 1 atorvastatin (LIPITOR) 20 mg tablet^Take 1 tablet by mouth daily at bedtime. For cholesterol.^Disp: 90 tablet^Rfl: 1 spironolactone (ALDACTONE) 25 mg tablet^Take 1 tablet by mouth once daily.^Disp: 90 tablet^Rfl: 3 CPAP/BIPAP/OTHER^Type .CPAPSettings into a note to see current settings/supplies/DME information.^Disp: 1 Each^Rfl: 0 zoledronic acid (RECLAST) 5 mg/100 mL pgbk PREMIX piggyback^Inject 100 mL intravenously as directed.^Disp: 100 mL^Rfl: 0 ramipril (ALTACE) 10 mg capsule^Take 1 capsule by mouth twice daily.^Disp: 180 capsule^Rfl: 1 metoprolol succinate ER (TOPROL XL) 25 mg 24 hr tablet^Take 1 tablet by mouth daily at bedtime.^Disp: 90 tablet^Rfl: 3 CPAP/BIPAP/OTHER^Type .CPAPSettings into a note to see current settings/supplies/DME information.^Disp: 1 Each^Rfl: 0 exemestane (AROMASIN) 25 mg tablet^Take 1 tablet by mouth once daily. TAKE AFTER A MEAL.^Disp: 90 tablet^Rfl: 3 furosemide (LASIX) 40 mg tablet^Take 1 tablet by mouth every 48 hours AND 2 tablets every 48 hours. Alternate 40 mg daily with 80 mg daily.^Disp: 135 tablet^Rfl: 3 (Patient taking differently: Take 1 tablet daily AND 2 tablets every other day. Alternate 40 mg daily with 80 mg daily.) CPAP/BIPAP/OTHER^Type .CPAPSettings into a note to see current settings/supplies/DME information.^Disp: 1 Each^Rfl: 0 CPAP/BIPAP/OTHER^Type .CPAPSettings into a note to see current settings/supplies/DME information.^Disp: 1 Each^Rfl: 0 CPAP/BIPAP/OTHER^Type .CPAPSettings into a note to see current settings/supplies/DME information.^Disp: 1 Each^Rfl: 0 acetaminophen (TYLENOL) 500 mg tablet^Take 1,000 mg by mouth as needed.^Disp: ^Rfl: biotin 5,000 mcg subl^Dissolve 1 tablet under the tongue once daily.^Disp: ^Rfl: (Patient taking differently: Dissolve 5,000 mcg under the tongue twice daily.) Famotidine-Ca Carb-Mag Hydrox (PEPCID COMPLETE) 10-800-165 mg chew^Take 1 tablet by mouth once daily as needed.^Disp: ^Rfl: jwuwv-qg-[id number]-zjl-vbz-rcguxpp-ast [phone] mg cap^Take 1 tablet by mouth once daily.^Disp: ^Rfl: cholecalciferol, vitamin D3, (VITAMIN D3 ORAL)^Take 1,000 Units by mouth twice daily. ^Disp: ^Rfl: vit A/vit C/vit E/zinc/copper (PRESERVISION AREDS ORAL)^Take 1 tablet by mouth twice daily.^Disp: ^Rfl: CPAP^Pressure changed in my office to Autopap 9.5-15 cm H2O, Heat Humidity & heated Tubing (JIMBO) suitable mask, [employer] supplies, opt [place]inst[place], G47.33.^Disp: 1 Device^Rfl: 11 (Patient taking differently: Pressure changed in my office to Autopap 5-8 cm H2O, Heat Humidity & heated Tubing (JIMBO) suitable mask, [employer] supplies, opt Chinstrap, G47.33.) gluc benitez/chondro benitez A/vit C/Mn (GLUCOSAMINE-CHONDROITIN COMPLX ORAL)^Take 1 tablet by mouth once daily. ^Disp: ^Rfl: Coenzyme Q10 300 mg cap^Take 300 mg by mouth once daily.^Disp: ^Rfl: melatonin 3 mg^Take 5 mg by mouth daily at bedtime. ^Disp: ^Rfl: ALLERGIES: 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 [place] [Hydrocodone-* Vomiting Penicillins Other: See Comments blisters REVIEW OF SYSTEMS: Constitutional: No fevers, chills, weight loss Eyes: No loss in vision, photophobia Ear, Nose, and Throat: No epistaxis, nasal congestion Cardiovascular: No chest pain, WALKER, SOB, palpitations Respiratory: No cough, hemoptysis Gastrointestinal: No diarrhea, constipation Genitourinary: No dysuria, polyuria Musculoskeletal: No joint pain, morning stiffness Skin: No rash, no ulcers Neurological: No headaches, seizures, paresthesias Psychiatric: No depression, anxiety Endocrine: No hair loss, no heat intolerance Hematologic:No easy bruising, easy bleeding PHYSICAL EXAM: BP 97/61 Pulse 73 Wt 64.9 kg (143 lb) BMI 25.74 kg/m BP - standardized method Pulse 1 BP #1: 99/62 Pulse #1: 77 beats/min 2 BP #2 : 97/60 Pulse #2 : 70 beats/min 3 BP #3 : 96/60 Pulse #3 : 72 beats/min Average Average BP: 97/61 Average Pulse: 73 beats/min Orthostatic vitals Supine Sitting Standing BP cuff location BP cuff size Comments for BP values First BP (right) First BP (left) Constitutional: No acute distress, Responsive, Well-nourished. Eyes: Conjunctiva clear, PERRL. Ear, Nose, and Throat: Hearing normal, Lips normal. Neck:Trachea midline, No jugular venous distension. Cardiovascular: Regular rate and ryhthm, normal S1 and S2, no murmurs, rubs, or gallops. Respiratory: Normal respiratory effort, Lungs clear bilaterally. Abdomen:Soft, non-tender, non-distended. Normal bowel sounds. No hepatosplenomegaly Musculoskeletal: No clubbing or cyanosis of digits. Pedal edema absent.varicose veins in legs. Neurologic: Alert and oriented, no focal deficits Psychiatric: Co-operative, Normal mood/affect. DATA: Diagnostic tests reviewed for today's visit: No results for input(s): COLOR , CLARITY , UGLUC , UBILI , UKET , SPGR , UHB , UPH , UPROT , NITRITES , LEUKEST , UWBC , URBC in the last 8784 hours. Recent Labs 02/02/23 0828 HB 10.8* Recent Labs 02/13/23 1100 02/02/23 0828 11/10/22 1008 11/07/22 0932 ALKPHOS -- 156* -- 153* VITD25 -- -- -- 71.6 CA 9.7 10.0 < > 10.5* ALB -- 4.7 -- 4.7 < > = values in this interval not displayed. No results for input(s): BUNRAT , BUNPR , BUNPO in the last 168 hours. No results for input(s): HEPSABQ in the last 1440 hours. Invalid input(s): HEPSABG Glucose (mg/dL) Date Value 02/13/2023 93 07/12/2021 130 Potassium (mmol/L) Date Value 02/13/2023 4.6 07/12/2021 3.6 Sodium (mmol/L) Date Value 02/13/2023 135 07/12/2021 139 Chloride (mmol/L) Date Value 02/13/2023 98 07/12/2021 98 CO2 (mmol/L) Date Value 02/13/2023 24 07/12/2021 26 Creatinine (mg/dL) Date Value 02/13/2023 1.51 07/12/2021 0.82 BUN (mg/dL) Date Value 02/13/2023 43 07/12/2021 22 Anion Gap (mmol/L) Date Value 02/13/2023 13 07/12/2021 15 Calcium (mg/dL) Date Value 07/12/2021 9.6 Calcium, Total (mg/dL) Date Value 02/13/2023 9.7 eGFR- (no units) Date Value 07/12/[address] abdomen pelvis with IV contrast 11/05/2022 RESULT: Liver: Interval decrease in size of right hepatic cyst currently measuring 1.1 cm, previously 1.3 cm. Stable subcentimeter hypodense too small to characterize left hepatic lesion. No new or enlarging hepatic lesions. Biliary: Gallbladder present without radiopaque stones or wall thickening. Mild prominence of the common bile duct measuring up to 1 cm, uncertain clinical significance noting it smoothly tapers distally. Spleen: Status post splenectomy. Pancreas: Status post distal pancreatectomy. Adrenals: No mass. Kidneys: Symmetric nephrograms with no evidence of hydronephrosis. Several bilateral subcentimeter hypodense too small to characterize renal lesions though statistically likely cysts GI tract: Small hiatal hernia. No dilation or wall thickening. Lymph nodes: No abdominal or pelvic lymphadenopathy. Mesentery/Peritoneum: No ascites. Vasculature: Atherosclerotic calcification of the vasculature. Pelvis: No mass, ascites or fluid collection. Status post hysterectomy. Bones/Soft Tissues: Degenerative changes. Grade 1 anterolisthesis of L3 on L4 and of L4 on L5. 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 No CT evidence of destructive osseous lesion. Lower thorax: A chest CT performed will be reported separately. Tool Machine Set Up Operator (topogram) images: No additional findings. IMPRESSION: No new or enlarging mass or lymphadenopathy in the abdomen or pelvis. ECHO: 10/2022: CONCLUSIONS: - Exam indication: Evaluation of known heart failure to guide therapy - The left ventricle is normal in size. There is moderate left ventricular hypertrophy. Left ventricular systolic function is normal. EF = 61 5% (2D biplane) Left ventricular diastolic function was not evaluated due to AF. - The right ventricle is normal in size. Right ventricular systolic function is normal. - The left atrial cavity is severely dilated. - The right atrial cavity is dilated. - The visualized aorta is borderline dilated with a maximal dimension of 3.9 cm. - Mild-moderate (1-2+) MR, previously trace-1+. - There is severe (3+ - 4+) tricuspid valve regurgitation. - Sclerotic aortic valve changes without hemodnamically significant stenosis. - Estimated right ventricular systolic pressure is 56 mmHg consistent with moderate pulmonary hypertension. Estimated right atrial pressure is 15 mmHg based on IVC assessment. Estimated right ventricular systolic pressure is 56 mmHg consistent with moderate pulmonary hypertension. Estimated right atrial pressure is 15 mmHg based on IVC assessment. - Exam was compared with the prior echocardiographic exam performed on 08/15/2020. Interval increase in MR and TR severity. ASSESSMENT: CKD3b: Baseline creatinine around 1.5; last EGFR 35 mill per minute from 01/2023. CKD could be from contrast nephropathy. There has been acute rise in her serum creatinine (along with new onset hyponatremia) since Oct, 2022 which could be related to [place] of spironolactone or from relatively low blood pressures. Hypertension/Volume status: Patient is on amlodipine 5 mg daily, spironolactone 25 mg daily, ramipril 10 mg twice daily, metoprolol succinate 25 mg daily, furosemide 40 mg and 80 mg on alternate days. BP is on the lower side however she is asymptomatic. She has diastolic CHF with moderate MR, severe TR and pulmonary HTN. Diabetes Mellitus: Last A1C 6.4. Patient is on metformin 500 mg twice daily. Hyperlipidemia: atorvastatin 20 mg daily. Anemia: Hb at target. CKD MBD: Check PTH, phos, calcium, vitamin D. Hyponatremia: could be from spironolactone use. Recurrent metastatic breast cancer: On Ibrance and exemestane PLAN: Hold Spironolactone and Ramipril. Repeat renal panel in one week. Check UA, UACR, UPCR. Check Renal US. Check PTH, vitamin D, Phos. Avoid NSAIDs. Limit/avoid iodinated contrast use. If avoidable, please use IVFs Infusion to be given before, during and after IV contrast study in the Radiology suite. Give 200 ml bolus over one hour before administering the contrast and continue at 100 ml/hr for 3 hours during and after the study. Also please hold metformin, Lasix and spironolactone on the day of contrast use. BP control discussed (Home BP target<130/80 mm Hg). Discussed methods used for calculating kidney function tests and CKD stages. Repeat labs and follow-up in 3 months. SIGNATURE: Fish Arreola MD PATIENT NAME: Queenie Adan OFFICE NUMBER: [phone] CC: REFERRING PROVIDER: Melanie Strong APRN.C* PRIMARY CARE PHYSICIAN: Tala Negron MD documented in this encounter [facility] 02-16-2023 Miscellaneous Notes Patient returned call and went over results, notes from Melanie Strong HAY BALER with understanding. Assisted with transfer to operating room scheduler to get appt set up. Message left for patient to call office back for update. Nadja Palacios LPN Please call patient and let her know her kidney function remains decreased. I have placed order for consult with nephrology. Please assist in scheduling. Melanie Strong APRN.SAWMILL 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 documented in this encounter [facility] 02-13-2023 Note [facility] 02-13-2023 History of Present illness Narrative 02/13/2023 Patient presents with: F/U 3 Month SUBJECTIVE: This is a 78 year old that is here today for Above Complaints. Since last office visit has been in good health without ER visits or hospitalizations. Prediabetes: taking metformin without side effects. Denies visual changes,polyuria or polydipsia HTN: Patient is compliant with meds Yes Monitors bp at home: Yes. Denies side effects: Yes. Chest pain: No. Dyspnea: No. Edema: No. Palpitations: No. Syncope: No. Headache: No. Dizziness: No. CAMRYN: follows with sleep medicine with last appointment on 10/16/2022. Auto pap setting increased. Complaint with therapy and feel refreshed when wakes up. HX of IPMN:managed by Dr. Gomez. S/P pancreatectomy/splenectomy. Due for follow-up. Atrial Fib/CAD: Follows with cardiology. Last appointment on 11/11/2022. Aldactone added at last appointment. Admits to SOB at times. Denies dyspnea, orthopnea, chest pain, palpitations or increasing leg edema. Has upcoming appointment on Hx of breast cancer: Follows with oncology. Last appointment on 02/02/2023. Had MRI for questionable area found on bone scan and MRI was good. Next office visit in April with CT scan prior to visit. Upcoming mammogram in February Follows with endocrinology for hx of parathyroidectomy and osteoporosis. Had reclast infusion in November PAST MEDICAL HISTORY Diagnosis Date A-fib (HCC) Dr. Cody Breast cancer ([facility]) 1998 lobular, left side. Stage I, ER+/IN+/HER2-. Seeing Dr. Friend Chronic diastolic CHF (congestive heart failure) ([facility]) Coronary artery disease mild Elevated alkaline phosphatase level Falls frequently GERD (gastroesophageal reflux disease) HTN (hypertension) Hyperparathyroidism (HCC) IPMN (intraductal papillary mucinous neoplasm) 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, estrogen receptor positive ([facility]) 01/09/2017 Osteoarthritis, knee Pancreatic cyst 11/2019 Pancreatitis PONV (postoperative nausea and vomiting) Prediabetes Recurrent seroma of breast S/P ablation of atrial fibrillation 2010 Sleep apnea on CPAP Vaginal dryness Varicose veins of both lower extremities ALLERGIES Anastrozole, [place] [Hydrocodone-Acetaminophen], and Penicillins MEDICATIONS Current Outpatient Medications Medication Sig palbociclib (IBRANCE) 100 mg tablet Take 1 tablet (100 mg) by mouth once daily. Take for 21 days on, followed by 7 days off. Take with or without food. iv contrast (will be provided with radiology test) CT Chest W -Inject, intravenously, once for 1 dose.No IV access, insert saline lock prior to the beginning of sedation, infusion, injection of imaging exam. Discontinue saline lock post exam. If Pt. has a central line or IVAD, may access for administration according to line specific nursing protocol. Once exam is complete flush line and de-access according to line specific nursing protocol in the CT contrast administration guidelines link. iv contrast (will be provided with radiology test) CT ABD/PEL -Inject, intravenously, once for 1 dose.No IV access, insert saline lock prior to the beginning of sedation, infusion, injection of imaging exam. Discontinue saline lock post exam. If Pt. has a central line or IVAD, may access for administration according to line specific nursing protocol. Once exam is complete flush line and de-access according to line specific nursing protocol in the CT contrast administration guidelines link. enteric contrast (will be provided with radiology test) For CT ABD/PEL W IVCON Routine order Administer, As Directed One Time Only, via Oral, Rectal, both Oral and Rectal, Enteric Tube, Stoma or Indwelling Catheter, Enteric Contrast as designated per enteric contrast guidelines apixaban (ELIQUIS) 5 mg tab(s) Take 1 tablet by mouth twice daily. (restart 12/09/19) loratadine (CLARITIN) 10 mg tablet Take 10 mg by mouth once daily. metFORMIN (GLUCOPHAGE) 500 mg tablet Take 1 tablet by mouth twice daily with meals. amLODIPine (NORVASC) 5 mg tablet Take 1 tablet by mouth once daily. atorvastatin (LIPITOR) 20 mg tablet Take 1 tablet by mouth daily at bedtime. For cholesterol. spironolactone (ALDACTONE) 25 mg tablet Take 1 tablet by mouth once daily. CPAP/BIPAP/OTHER Type .CPAPSettings into a note to see current settings/supplies/DME information. zoledronic acid (RECLAST) 5 mg/100 mL pgbk PREMIX piggyback Inject 100 mL intravenously as directed. ramipril (ALTACE) 10 mg capsule Take 1 capsule by mouth twice daily. metoprolol succinate ER (TOPROL XL) 25 mg 24 hr tablet Take 1 tablet by mouth daily at bedtime. CPAP/BIPAP/OTHER Type .CPAPSettings into a note to see current settings/supplies/DME information. exemestane (AROMASIN) 25 mg tablet Take 1 tablet by mouth once daily. TAKE AFTER A MEAL. furosemide (LASIX) 40 mg tablet Take 1 tablet by mouth every 48 hours AND 2 tablets every 48 hours. Alternate 40 mg daily with 80 mg daily. (Patient taking differently: Take 1 tablet daily AND 2 tablets every other day. Alternate 40 mg daily with 80 mg daily.) CPAP/BIPAP/OTHER Type .CPAPSettings into a note to see current settings/supplies/DME information. CPAP/BIPAP/OTHER Type .CPAPSettings into a note to see current settings/supplies/DME information. CPAP/BIPAP/OTHER Type .CPAPSettings into a note to see current settings/supplies/DME information. acetaminophen (TYLENOL) 500 mg tablet Take 1,000 mg by mouth as needed. biotin 5,000 mcg subl Dissolve 1 tablet under the tongue once daily. (Patient taking differently: Dissolve 5,000 mcg under the tongue twice daily.) Famotidine-Ca Carb-Mag Hydrox (PEPCID COMPLETE) 10-800-165 mg chew Take 1 tablet by mouth once daily as needed. ummbv-gm-8-[id number]-typ-ipopold-ast [phone] mg cap Take 1 tablet by mouth once daily. cholecalciferol, vitamin D3, (VITAMIN D3 ORAL) Take 1,000 Units by mouth twice daily. vit A/vit C/vit E/zinc/copper (PRESERVISION AREDS ORAL) Take 1 tablet by mouth twice daily. CPAP Pressure changed in my office to Autopap 9.5-15 cm H2O, Heat Humidity & heated Tubing (JIMBO) suitable mask, [employer] supplies, opt Chinstrap, G47.33. (Patient taking differently: Pressure changed in my office to Autopap 5-8 cm H2O, Heat Humidity & heated Tubing (JIMBO) suitable mask, [employer] supplies, opt Chinstrap, G47.33.) gluc benitez/chondro benitez A/vit C/Mn (GLUCOSAMINE-CHONDROITIN COMPLX ORAL) Take 1 tablet by mouth once daily. Coenzyme Q10 300 mg cap Take 300 mg by mouth once daily. melatonin 3 mg Take 5 mg by mouth daily at bedtime. Current Facility-Administered Medications Medication Dose Route Frequency perflutren lipid microspheres 1.3 mL in NaCl (PF) 0.9% 10 mL injection (DEFINITY) INTRAVENOUS DIRECTED PRN sodium chloride 0.9 % (flush) 10 mL (BD POSIFLUSH) 10 mL INTRAVENOUS DIRECTED PRN Medications and allergies reviewed by this provider. SOCIAL HISTORY Social History Tobacco Use Smoking status: Never Smokeless tobacco: Never Vaping Use Vaping Use: Never used Substance Use Topics Alcohol use: Yes Comment: rare, maybe one drink a month Drug use: No REVIEW OF SYSTEMS All other reviewed and negative other than HPI. OBJECTIVE: BP 106/72 Pulse 75 Resp 18 Wt 65.2 kg (143 lb 12.8 oz) SpO2 98% BMI 25.88 kg/m . Vital signs reviewed by this provider. APPEARANCE Well appearing, alert, in no acute distress, well-hydrated, well nourished. EYES conjunctiva and sclera normal. HEART RRR with normal S1 and S2, no murmurs, no gallops, no JVD appreciated LUNG clear to auscultation. No wheezes, rhonchi or rales EXTREMITIES Extremities normal, No deformities, No skin discoloration, and No edema SKIN Skin color, texture, turgor normal, no suspicious rashes or lesions to exposed skin Component Latest Ref Rng & Units 11/28/2022 02/02/2023 WBC 3.70 - 11.00 k/uL 3.05 (L) RBC 3.90 - 5.20 m/uL 2.94 (L) Hemoglobin 11.5 - 15.5 g/dL 10.8 (L) Hematocrit 36.0 - 46.0 % 31.3 (L) MCV 80.0 - 100.0 fL 106.5 (H) MCH 26.0 - 34.0 pg 36.7 (H) MCHC 30.5 - 36.0 g/dL 34.5 RDW-CV 11.5 - 15.0 % 15.7 (H) Platelet Count 150 - 400 k/uL 181 MPV 9.0 - 12.7 fL 9.4 Neut% % 42.3 Abs Neut (ANC) 1.45 - 7.50 k/uL 1.29 (L) Lymph% % 36.1 Abs Lymph 1.00 - 4.00 k/uL 1.10 Nicholas% % 13.4 Abs Nicholas <0.87 k/uL 0.41 Eosin% % 3.6 Abs Eosin <0.46 k/uL 0.11 Baso% % 4.3 Abs Baso <0.11 k/uL 0.13 (H) Immature Gran % % 0.3 IMMATURE GRANS (ABS) <0.10 k/uL <0.03 NRBC /100 WBC 0.0 Absolute nRBC <0.01 k/uL <0.01 DTYPE Auto Protein, Total 6.3 - 8.0 g/dL 7.6 Albumin 3.9 - 4.9 g/dL 4.7 Calcium 8.5 - 10.2 mg/dL 10.0 Bilirubin, Total 0.2 - 1.3 mg/dL 0.6 Alkaline Phosphatase 34 - 123 U/L 156 (H) AST 13 - 35 U/L 18 ALT 7 - 38 U/L 13 Glucose 74 - 99 mg/dL 108 (H) BUN 7 - 21 mg/dL 43 (H) Creatinine 0.58 - 0.96 mg/dL 1.44 (H) Sodium 136 - 144 mmol/L 132 (L) Potassium 3.7 - 5.1 mmol/L 4.2 Chloride 97 - 105 mmol/L 96 (L) CO2 22 - 30 mmol/L 25 Anion Gap 9 - 18 mmol/L 11 eGFR >=60 mL/min/1.73m 37 (L) Cholesterol, Total <200 mg/dL 153 Triglyceride <150 mg/dL 52 HDL Cholesterol >39 mg/dL 69 Non HDL Cholesterol <130 mg/dL 84 Fasting Time hrs 10 VLDL Cholesterol <30 mg/dL 10 TC:HDL Ratio <5.10 2.22 LDL Cholesterol <100 mg/dL 74 LDL:HDL Ratio <2.54 1.07 Hemoglobin A1C 4.3 - 5.6 % 6.4 (H) Estimated Average Glucose mg/dL 137 SHINGRIX VACCINE(1 of 2) Never done COVID-19 VACCINE(6 - Moderna risk series) due on 07/19/2022 INFLUENZA(1) due on 02/20/2023 LDL CHOLESTEROL due on 11/29/2023 SERUM CREATININE due on 02/03/2024 HEMOGLOBIN/HEMATOCRIT due on 02/03/2024 ANNUAL PCP TEAM CHRONIC DISEASE VISIT due on 02/14/2024 BP CONTROLLED (<130/80) due on 02/14/2024 DIABETES SCREEN due on 02/02/2026 DTAP,TDAP,TD(2 - Td or Tdap) due on 08/05/2028 BONE DENSITY Completed DEPRESSION ASSESSMENT Completed PNEUMOCOCCAL: 65+ Completed HPV VACCINE Aged Out COLORECTAL CANCER SCREENING Discontinued ADVANCE DIRECTIVE DISCUSSION Discontinued ASSESSMENT/PLAN: 1. Essential hypertension - ICD9: 401.9, ICD10: I10 (primary diagnosis) - Controlled - Continue current medications - Recommend home blood pressure monitoring, to bring results to next visit - Encouraged sodium restriction, DASH or Mediterranean diet - Recommend regular aerobic exercise - Follow up in 6 months for hypertension visit 2. Blood creatinine increased compared with prior measurement - ICD9: 790.99, ICD10: R79.89 - BASIC METABOLIC PNL 3. Stage 3b chronic kidney disease (HCC) - ICD9: 585.3, ICD10: N18.32 - eGFR: Worsening - Counseled on avoiding NSAIDs, adequate hydration - Counseled on low sodium diet - follow-up pending blood work 4. IPMN (intraductal papillary mucinous neoplasm) - ICD9: 239.0, ICD10: D49.0 - due for follow-up, she is going to make appointment 5. Prediabetes - ICD9: 790.29, ICD10: R73.03 - stable - continue current medications, diet and exercise 6. Chronic diastolic CHF (congestive heart failure) (HCC) - ICD9: 428.32, 428.0, ICD10: I50.32 - stable on current medications - follow-up with cardiology as scheduled 7. Coronary artery disease involving [place] coronary artery of [place] heart with angina pectoris (HCC) - ICD9: 414.01, 413.9, ICD10: I25.119 - plan as in #6 8. Hyperparathyroidism (HCC) - ICD9: 252.00, ICD10: E21.3 - continue to follow-up 9. Malignant neoplasm of overlapping sites of left breast in female, estrogen receptor positive (HCC) - ICD9: 174.8, V86.0, ICD10: C50.812, Z17.0 - follow-up with oncology as scheduled 10. CAMRYN (obstructive sleep apnea) - ICD9: 327.23, ICD10: G47.33 - continue nightly Melanie Strong APRN.CNP Prescription instructions reviewed with patient as applicable. Patient advised if symptoms do not improve or if symptoms worsen sooner, to contact their primary care physician. Potential red flag symptoms discussed with the patient. Reviewed appropriate action plan to take if red flag symptoms occur. Patient agreeable to treatment plan. I spent a total of 30 minutes on the date of the service which included preparing to see the patient, [id number] patient care, completing clinical documentation, obtaining and/or reviewing separately obtained history, performing a medically appropriate examination, counseling and educating the patient/family/caregiver, and ordering medications, tests, or procedures. documented in this encounter [facility] 02-02-2023 Note [facility] 01-07-2023 Miscellaneous Notes Patient returned call and rescheduled. Kizzy June LM for patient to return call. When patient calls, please advise that Dr. Thao needs to reschedule her 01/30/23 lab and office visit and reschedule said appointments to a date and time that works for the patient. Kizzy June documented in this encounter [facility] 12-12-2022 Miscellaneous Notes Phoned patient and she stated she will bulk picker the Rx from medical records. Rx taken to medical records. Pt notified handicap placard available for bulk picker or to be mailed to address on file. Wait pt response. Victoria Miles Ma Rx printed. Can mail or patient can bulk picker rx and take to [facility]. documented in this encounter [facility] 12-11-2022 Miscellaneous Notes Belkys--10/23/22 Nov--02/13/23 Last refill--05/21/22 180 with 1 refill Last labs--11/28/22 documented in this encounter [facility] 12-03-2022 Note [facility] 12-03-2022 History of Present illness Narrative Ms. Orquidea Adan presents today for her Reclast Infusion. She states she Initial Vital signs: There were no vitals taken for this visit. INFUSION DOCUMENTATION Infusion initiated at 1035 Dose: 5mg per 100ml LOT [id number] Exp: 05/2024 IV: A 22g angiocath was started in the right arm. LAB DATA: Glucose (mg/dL) Date Value 11/10/2022 93 07/12/2021 130 Potassium (mmol/L) Date Value 11/10/2022 4.3 07/12/2021 3.6 Sodium (mmol/L) Date Value 11/10/2022 136 07/12/2021 139 Chloride (mmol/L) Date Value 11/10/2022 99 07/12/2021 98 CO2 (mmol/L) Date Value 11/10/2022 28 07/12/2021 26 Creatinine (mg/dL) Date Value 11/10/2022 1.18 07/12/2021 0.82 BUN (mg/dL) Date Value 11/10/2022 43 07/12/2021 22 Anion Gap (mmol/L) Date Value 11/10/2022 9 07/12/2021 15 Calcium (mg/dL) Date Value 07/12/2021 9.6 Calcium, Total (mg/dL) Date Value 11/10/2022 10.3 Protein, Total (g/dL) Date Value 11/07/2022 7.4 07/12/2021 7.2 Albumin (g/dL) Date Value 11/07/2022 4.7 07/12/2021 4.6 Bilirubin, Total (mg/dL) Date Value 11/07/2022 0.7 07/12/2021 0.8 Alkaline Phosphatase (U/L) Date Value 11/07/2022 153 07/12/2021 155 AST (U/L) Date Value 11/07/2022 16 07/12/2021 18 ALT (U/L) Date Value 11/07/2022 13 07/12/2021 13 Vitamin D 25 Hydroxy (ng/mL) Date Value 11/07/2022 71.6 10/26/2020 74.2 ] Infusing without signs or symptoms of infiltration. IV DC'D 1107 Patient tolerated well. Infusion discontinued at 1105. PLAN: to return in 1 yr. Follow up with registered massage therapist as scheduled Ms. Orquidea Adan was discharged in no distress and accompanied by family member. Supervising Physician: Ajit Schneider documented in this encounter [facility] 11-20-2022 History of Present illness Narrative EST PATIENT Last visit: 11/04/2022- Dr. Mccoy Chief Complaint: full body skin exam History of Present Ilness: Queenie Adan is a 78 year old female presents today for a full body skin exam Location:nose Symptoms: gets larger and smaller in size, denies itching, bleeding Current treatment: None Previous treatment:None No other concerns today Pertinent Past Medical History: -Personal history of skin cancer: Yes, squamous cell carcinoma in situ, nasal supratip effudex -Personal history of skin disease: No -History of organ transplant/immunosuppressed: No -History of atypical moles: No -Pacemaker or defibrillator: No Specialty Problems Dermatology Problems 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 Skin per HPI. No other new/concerning skin growth. Physical Exam: General: well appearing, of stated age, in no acute distress Neurology: alert and oriented times three Psychiatry: normal affect and speech Camacho skin type: II A skin exam was done of the scalp, face including eyelids and lips, ears, neck, chest, back, abdomen, bilateral upper extremities including digits, bilateral lower extremities and digits, buttocks, nails, except genitals Skin exam normal with the exception of: -Few scattered brown stuck on papules and plaques on the head, trunk and extremities -Regular and symmetric brown macules and papules on the head, trunk and extremities -Scattered reticulated light coronado macules in sun distribution -Scattered small vega red papules throughout -[place] scaly papule on the right dorsal hand -[place] dome shaped papule on the nasal tip Assessment and Plan: Actinic keratosis -Discussed etiology and possibility of transformation to SCC -Discussed management options including risks and benefits -Patient opts for LN2 Plan: -Cryosurgery with LN2 -Risks and benefits discussed, including side effects such as redness, swelling, crusting, and discoloration after treatment. Wound care with soap/water and Vaseline -Follow up sooner than scheduled interval if not resolved PROCEDURE: Cryosurgery of non-malignant lesion(s) Risks, including but not limited to scarring and postprocedure pain, benefits, alternatives and personnel required for cryosurgery reviewed with patient. Pt verbalizes understanding and wishes to proceed. I personally obtained patient's verbal consent, Edwina Damon CNP Cryosurgery performed with Liquid Nitrogen via cryostat spray gun to the right hand x 1. Wound care instructions provided, pt verbalizes understanding. Pt tolerated treatment well. 2. Hx of nonmelanoma skin cancer - No evidence of recurrence on exam. Continued monitoring. Regular skin exams discussed given increased risk of subsequent cutaneous malignancies. - Should any areas change in size, shape or color, bleed or become tender, the patient will contact the office for evaluation sooner than their interval appointment. 3. Rash and nonspecific skin eruption -Likely dermatitis due to wearing C-PAP with secondary seborrheic dermatitis -Apply Ketoconazole 2% cream to affected area twice daily - Discussed switching CPAP straps to over the head instead of around the ears 4. Solar lentigines, Multiple benign nevi, Vega angiomas, Seborrheic Keratoses Reassurance on benign nature of lesions and recommend routine self-examinations. Recommend observation and encouraged to notify office of changes. 5. Intradermal nevus - Patient would like removed, recommend scheduling appointment with Dermatology surgery -Reassurance on benign nature of the lesion Sunscreen (SPF 30 or higher). Sun protective clothing can be used in lieu of sunscreen but must be worn the entire time you are exposed to the sun's rays The ABCDEs of melanoma were reviewed with the patient and the importance of routine self-examination of moles was emphasized. Should any areas change in size, shape or color, bleed or become tender, the patient will contact the office for evaluation sooner than their interval appointment. Patient verbalizes understanding and agrees with treatment plan. Follow up: 6 months or sooner if something concerning arises. The documentation for this note was completed by Edwige Leija RN acting as scribe for Edwina Damon APRN.CNP. May 06, 2023 11:28 AM. Anthony Lopez APRN.CNP (Training) I, Edwina Damon APRN.CNP, have personally seen and examined the patient. I have discussed the case and the management of this patient's care with the trainee and agree with the documentation. I agree with the Chief Complaint, ROS, and Past Histories independently gathered by the clinical office support assistant and the remaining scribed note accurately describes my personal service to the patient. Edwina Damon APRN.CNP documented in this encounter [facility] 11-18-2022 Miscellaneous Notes TC to pt, pt made aware, voices understanding. Chelsie Mcadams LPN Please inform pt. that the MRI of her hip showed no concerning findings for cancer. Follow up as scheduled. Thank you. Nimisha Aleman APRN.CNP documented in this encounter [facility] 11-14-2022 Note [facility] 11-14-2022 History of Present illness Narrative Radiology Service Progress Note DATE OF SERVICE: November 14, 2022 TIME: 1:55 PM PATIENT IDENTITY VERIFICATION COMPLETED USING TWO (2) STANDARD IDENTIFIERS: Name and Date of confirmed by patient verbally. FALL SCREENING: Has the patient had 2 falls in the last year or 1 fall with injury or currently using an Ambulatory Assistive Device (Walker, Cane, Wheelchair, Crutches, etc.)? Yes, Patient High Risk for Falls What interventions were put in place to prevent falls during this visit? Instructed Patient to Call for Help if Needed, Offered Assistance with Transfers/Clothing, Instructed Patient to Remain Seated (Not on Exam Table) Until Exam, and Increased Observations by Caregivers PATIENT GENDER DATA: Female. status: : No status: NO. PATIENT RELEVANT IMPLANT DATA REVIEWED: Yes ALLERGIES: Reviewed and unchanged CONTRAST ALLERGY: NO. EXAM: MRI - CONTRAST TYPE: GROUP II PERIPHERAL IV DATA: Ambulatory: A peripheral IV was started in the Right antecubital site with a Angio cath: 22 gauge. RADIOLOGY DEPARTMENT: MR; Exam(s) Completed: Lower MSK: Hip, right SIGNATURE: Letty Powell, RT(R) PATIENT NAME: Queenie Adan DATE: November 14, 2022 TIME: 1:55 PM documented in this encounter [facility] 11-12-2022 Note [facility] 11-07-2022 Note [facility] 11-04-2022 Note [facility] 11-03-2022 Note [facility] 10-31-2022 Note [facility] 10-31-2022 Note [facility] 10-31-2022 History of Present illness Narrative RADIOLOGY SERVICE PROGRESS NOTE SERVICE DATE: 10/31/2022 SERVICE TIME: 10:00 AM PATIENT IDENTITY VERIFICATION COMPLETED USING TWO (2) STANDARD IDENTIFIERS: Name and Date of confirmed by patient verbally FALL SCREENING: Has the patient had 2 falls in the last year or 1 fall with injury or currently using an Ambulatory Assistive Device (Walker, Cane, Wheelchair, Crutches, etc.)? No PATIENT GENDER DATA: .female ALLERGIES: Reviewed and unchanged MEDICATIONS REVIEWED: No PATIENT RELEVANT IMPLANT DATA REVIEWED: Not Applicable CREATININE: Creatinine Date Value Ref Range Status 10/31/2022 0.98 (H) 0.58 - 0.96 mg/dL Final 10/17/2022 1.05 (H) 0.58 - 0.96 mg/dL Final 08/15/2022 1.04 (H) 0.58 - 0.96 mg/dL Final Estimated Glomerular Filtration Rate Date Value Ref Range Status 10/31/2022 59 (L) >=60 mL/min/1.73m Final Comment: Estimated Glomerular Filtration Rate (eGFR) is calculated using the 2020 CKD-EPI creatinine equation. This equation utilizes serum creatinine, sex, and age as parameters. The creatinine assay has traceable calibration to isotope dilution-mass spectrometry. Refer to KDIGO guidelines for clinical interpretation. In patients with unstable renal function, e.g. those with acute kidney injury, the eGFR may not accurately reflect actual GFR. eGFR- Date Value Ref Range Status 07/12/2021 >60 Final P.O.C.T. RESULTS: N/A October 31, [address] PERFORMED: No IV SITE: Ambulatory: A peripheral IV was started in the Right forearm with a Angio cath: 22 gauge. POST EXAM PIV STATUS: Left in for next appointment. PROCEDURE TYPE: NM INJECT: Whole Body Bone Scan. 23.2 mCi Tc99m MDP. No other medications given.. ADMINISTRATION TIME: 10:10 A Diagnostic radioactive procedure has taken place, with no further precautions necessary other than routine body substance precautions. More information regarding radiation safety can be found using this link: [email or web address] SIGNATURE: RT Que(Emily) PATIENT NAME: Queenie Adan DATE: October 31, 2022 TIME: 1:29 PM PAGER/CONTACT #: documented in this encounter [facility] 10-22-2022 Note [facility] 10-16-2022 Instructions Kizzy Ayala APRN.SAWMILL 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 - 10/16/2022 2:54 PM EDT Patient Instructions: - Increase Auto CPAP 5-11 cmH2O. - Will send script to [facility]. - Remember to clean your mask and equipment regularly, as directed. - You should be eligible for new supplies approximately every 3-6 months, depending on your insurance coverage. Contact your Durable Medical Equipment (DME) company for new supplies as needed. - Follow up in 6 months with [facility]. If you have questions, feel free to send me a Celect message. Kizzy Ayala APRN.SAWMILL 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 CPAP Holt on Skin 1: Could be an allergic reaction - use Remzzz's 2: Over tightening the mask because the mask is too big, cushions are worn out, you have not washed your face, the mask is dirty, and the headgear is too small and tight 3: You have sensitive skin 4: Takes time for your skin to toughen up and get used to it. 5: Use an ointment such as A&D during the day, but not while the mask is on as it can cause the mask to breakdown and make it slippery while on your face, therefore compromising the seal. 6: Use a softer mask Bloated and Gassy 1: No clear cut solution 2: Use a chinstrap no matter what type of mask you are using to reduce the likelihood of swallowing air through your mouth. 3: Use Simethicone prior to going to bed. 4. Try not to eat 2-3 hours before bedtime. 5: Lower CPAP pressure setting temporarily. Example was 12 - lower to 10 for 1 month, 11 for one month, then back up to 12 6: Use Auto CPAP or BiPAP 7: Lengthen ramp time 8: Elevate the head of the bed 9: Try sleeping on your side. 10: Try a different mask 11: Out of options? Switch to BiPAP Dry Mouth 1: Nasal Pillows or Mask? Wear the chin strap 2: Raise the level of the heated humidifier 3: Have head cold or allergies 4: Using wrong mask for pressure setting 5: Medications such as psychiatric meds 6: Preheat your distilled water - especially in the winter months 7: Use a tubing wrap to keep in the moisture Allergies 1: Take a bath before bedtime 2: Keep your windows closed at night to prevent allergens from coming in 3: Wash your sheets and blankets often 4: Use the fine particulate filter for your PAP 5: Use a HEPA filter in your home 6: Saline flush your nose 7: See an Pipe Washer 8: Use a full face mask during allergy flare-ups Stomach Sleeper 1: Requires a lot of patience and persistence 2: Are no good or perfect solutions 3: Do not sleep with your face buried in the pillow, you could cover the exhalation port and trap CO2 which you will breathe in. 4: Situate tubing to go over your head or to the side. 5: Find a comfortable mask that is less bulky 6: After time, you will likely train yourself to sleep on your side 7: Choose a softer pillow or use a CPAP pillow and sleep with your face on the edge of the pillow Have a Cold? 1: Do not use nasal pillows or nasal mask when you have a cold. This is because your nasal passages swell and become inflamed with a cold. 2: Use a full face mask 3: Breathe through your mouth with the full face mask 4: Use the heated humidifier documented in this encounter [facility] 10-16-2022 History of Present illness Narrative Episode Visit Count: 9 Therapist That Will Accept/Oversee The Plan Of Care: Anselmo Prather PT Start of Care Date: 09/18/22 Onset Date: 09/18/20 (unsteady for 2 years but getting progressively worse) Plan of Care Certification Date: 09/18/22 Next Certification Due Date: 11/13/22 Patient Identified by Name and Date of : Yes REHABILITATION AND SPORTS THERAPY PHYSICAL THERAPY DISCONTINUANCE OF CARE PLAN OF CARE UPDATE: Assessment: Queenie Austyn Koenigtena Adan is discontinued from Physical Therapy services due to goal achievement and maximal benefit. and Patient/Clinician mutual decision to discontinue current plan of care.. Patient was seen for 9 visits from Start of Care Date: 09/18/22 to 10/16/2022 and treatment included: Therapeutic exercise, Neuromuscular re-education, Self-assisted management, Gait training, Patient/Family/Caregiver Education, and General conditioning. Updated: 10/16/22 Goals for Episode of Care: created on 09/18/22 through 11/13/22 Patient will report no falls. - Not MET, pt had one fall and it was yesterday Improve score on Timed Up and Go Test to 8.54 seconds to reflect decreased fall risk. - partially MET Improve performance on 4 Stage Balance Test to 10 second tandem and 14.2 second SLS to reflect decreased fall risk. - MET easily [place] in home exercise program including cardiovascular exercise. - MET Patient will demonstrate independent and proper use of assisstive device to allow for improved walking quality and safety therefore reducing the risk of falls. - MET Perform rising, walking and stairs with decreased report of symptoms / Pain. - MET Increase strength and endurance to WFL in order to increase standing and walking tolerance. - MET Patient Goals: improve stability but maintain an active lifestyle - MET SUBJECTIVE: Patient Reason for Visit: Pt reports that overall she is doing well and getting better functionally. Despite the improvements, she does report falling yesterday when she was at her medical appointment at [facility]. She is completely shocked and unable to explain why she fell. She reports that this was after her appointment and she was waiting for the vallet at the main entrance. She reports that she was standing stationary and fell backwards. She reports landing on her back and buttocks. She reports being pleasantly surprised that she was uninjured. She reports that without medication she is still pain-free today. She denies any limitations with rising but that at her exercise class she does have some difficulty with rising. She reports that overall she is walking better and increasing use of her cane. She denies any limitations on stairs and reports increased standing and walking tolerance. She is pleased with her increased endurance. Pain: Pain Pain Level: 0 Post Treatment Pain Post Treatment Pain Level: No Change PROMIS Scales Higher is Better 10/14/2022 09/18/2022 07/25/2022 Phys Func - Score 40 (mild dysfunction) 42 (mild dysfunction) 40 (mild dysfunction) Phys Func - Percentile 16 % 21 % 16 % Self-Eff Symptom - Score 46 (Average) 44 (Average) 45 (Average) Self-Eff Symptom - Percentile 34 % 27 % 31 % T-scores: mean of general population = 50. 5 points is clinically meaningfully difference Percentiles provide an indication of how the patient's score ranks in relation to the general population. Higher percentile rankings indicate better function/quality of life. 50th percentile is the average of the general population and indicates half of respondents had a worse score. OBJECTIVE MEASURES WITH LEVEL OF FUNCTION: LE Strength Trunk Strength: Increased R LE Strength: increased L LE Strength: increased Gait Gait Observation: Normal with cane following gait training review. Stairs: normal per patient. Curb Step: Independent Device: Cane Functional Performance Test Results Timed Up and Go (sec): 9.7 sec (without cane) Timed Up and Go - Condition 2 (sec) : 9.6 (with cane) 4 Stage Balance Test Tandem base of support (sec): 103 sec Single leg stance - right (sec): 22 sec Single leg stance - left (sec): 19 sec TREATMENT: Therapeutic Exercise: 1: SciFit StepOne seat #10 x6 minutes with level 2 resistance 2: HEP was thoroughly reviewed and recommendations made for continuation. Pt was advised to continue with the program that she was given previously with handouts but to only complete 1x day. She was advised to stop going to the gym 2 days a week. She was advised to do HEP and 30 minute supervised class 2x week only Skilled Intervention: Patient was educated in proper exercise technique and purpose for exercises. Reviewed and educated patient on additions/changes for home exercise program as above (*). Skilled judgment was provided in selection of appropriate interventions. Correct performance of therapeutic exercises was facilitated with verbal and visual cuing. Patient education as noted. Neuromuscular Re-Education: 1: Balance tests completed and results shared with patient. These results were used to emphasize the fact that she has good balance that has improved dramatically since evaluation 09/18/22. She was advised that the cause of her fall was fatigue yesterday. She was advised that she needs to moderate her activity level. 2: Balance test results were used to clarify all recommendations and justify d/c plan 3: She was urged to use cane at all times and proper use of cane reviewed. Skilled Intervention: Ensured patient safety with use of gait belt. Patient education as noted. Self-Half-Way Management: 1: Therapist had lengthy discussion with patient about possible contributing factors to her fall yesterday. She was repeatedly reminded of how well she did with balance tests and that she does not have poor balance. Her dramatic improvements since evaluation were explained. She was encouraged to decrease her activity level because exercising 6 days a weeek in addition to HEP 2x day is too much. Therapist discussed with patient her number of steps yesterday and that she needs to decrease her expectations of herself. Skilled Intervention: Skilled judgment in the selection of proper modification for activity of daily living/home management based on clinical presentation, deficits, and needs. Reviewed patient specific diagnosis in relation to activities of daily living/home management. Activity progression based on professional judgement. Billing Therapeutic Exercise Treatment Minutes: 10 Neuromuscular Re-Education Treatment Minutes: 10 Self-Care/Home Management Treatment Minutes: 20 Total Treatment Time Minutes (timed/untimed): 40 Anselmo Prather PT documented in this encounter [facility] 10-16-2022 History of Present illness Narrative Images from the original note were not included. [facility] Visit performed virtually, with the patient's permission. [employer] Rules (O.[employer] ): This visit was conducted as a Virtual Visit, with patient's permission, via Zoom. It required patient-provider interaction for the medical decision making as documented below. Patient stated first & last name: Queenie Adan Patient stated : 1945 Patient stated current location: [place], [place] I have communicated my name, Kizzy Ayala CNP, and active licensure Adult Certified Nurse Practitioner in the Sleep Medicine Center at [facility]. The patient's identity and physical location were verified at the time of this visit. Either the patient or their legal cash application representative has been informed of the risks and benefits of -- and alternatives to -- treatment through a remote evaluation and consents to proceed with the evaluation remotely. Virtual visits are a convenient way for us to meet, but there are some situations in which an in-person evaluation may be required at a later time. I want to check in to confirm your consent to be seen virtually today. Consent given: Yes Virtual Follow up/ Established patient visit Date of last visit : 02/17/2022 Per last visit: IMPRESSION: Diagnosis: Camryn (obstructive sleep apnea) (primary encounter diagnosis) Atrial fibrillation, chronic (hcc) Sleep Studies (Reviewed Prior and Current): Polysomnogram performed on 01/11/2019 revealed severe CAMRYN (Total AHI 65.4, Off-Supine AHI 43.6, Supine AHI 65.4) that was associated with a minimum O2 saturation of 72%. Respiratory events consisted of obstructive apneas, hypopneas, and RERAs. The severity of this sleep related breathing disorder may be underestimated due to the presence of mild flow and effort decrements associated with arousal and/or oxygen desaturation not meeting established CMS respiratory event criteria. 2. Atrial fibrillation on limited channel EKG recording. PSG Split Night Study 07/04/2021 revealed severe CAMRYN (AHI of 62.9) that was associated with a minimum O2 saturation of 82%. 1. The patient used her oral appliance during the diagnostic portion of the study and the AHI was 62.9 with the oral appliance in place, demonstrated lack of efficacy of the oral appliance. 2. The decision was made to split the patient onto CPAP given the elevated AHI with the oral appliance in place. PAP titration was done with the oral appliance in place. 3. During the PAP titration portion, at CPAP 7 and 8 cmH2O the AHI was normalized and the oxygen saturation was maintained above 88%. At CPAP 9 and 10 cmH2O the patient began to experience central apneas that appeared to be treatment emergent, but also had the appearance of Hair Hay breathing pattern. Atrial fibrillation was noted. RECOMMENDATIONS: Auto-titrating CPAP 5-8 cmH2O with humidification and with concurrent use of oral appliance. Close clinical follow up with data download after 1 month to ensure tolerance, efficacy, and compliance. Would consider full night PAP titration study with Bilevel PAP, possible addition of back rate, and/or ASV if significant central events are noted on the download. Overview: Ms. Queenie Adan is a 76 year old male with a PMH of CAMRYN, Atrial Fibrillation, S/P Ablation of Atrial Fibrillation, CHF, CAD, Pulmonary HTN, Sinus Pause, Valvular Heart Disease who presents in person for CAMRYN (APAP 5-8 cmH20) and MAD. - Doing well with PAP therapy. - Denies mask or pressure intolerance. She would like to have her ramp turned back on. - Discussed PAP interrogation and download. - Compliant and benefiting from treatment. - Face to face examination completed 02/17/22. - Ms. Queenie Adan has fulfilled her insurance requirement by following up with a visit 31-90 days after beginning patient therapy, average usage is 8 hours 18 minutes, and compliancy of 100 %. Reviewed objective PAP compliance data: Device interrogated in room. RespirSmarp Oy DreamStation 2 Advanced Pressure 5-8 cmH20 Mode - Auto Usage days (100%) >= 4 hours - (100%) Average # hours nights used - 8.18 Pressure 90th % - 7.5 cmH20 Average time in large leak per day - 00:00:00 Residual AHI - 5.4 Plan: (1) Today during visit increased AutoPAP at 5-10 cmH2O with mouth guard. (2) Today during visit increased ramp time to 30 minutes. (3) Patient is in need of new supplies Will send script to [facility]. - Remember to clean your mask and equipment regularly, as directed. - You should be eligible for new supplies approximately every 3-6 months, depending on your insurance coverage. Contact your Durable Medical Equipment (DME) company for new supplies as needed. (4) 1 have ordered a HOME SLEEP APNEA TEST (HSAT) WITH MOUTH GUARD to evaluate for obstructive sleep apnea. - What is a Home Sleep Assessment Test (HSAT). The HSAT -- also called portable monitoring or an [id number] sleep test, is a diagnostic test sleep professionals and doctors use to diagnose obstructive sleep apnea. A technically adequate HSAT device incorporates a minimum of the following sensors: nasal pressure, chest and abdominal respiratory inductance plethysmography, and oximetry; or peripheral arterial tonometry (PAT) with oximetry and actigraphy (2). - Call [phone] to schedule your home sleep study if it is not scheduled after your visit today with one of our schedulers. - The morning after your sleep study is completed, please contact our office to schedule a follow up visit (in clinic or virtual) in 2-3 weeks with [facility] or with Results Clinic who will be explain the results in detail and treatments options. Results are usually available within 10-14 business days. HOME SLEEP APNEA TESTING INSTRUCTIONS: If your Sleep Study has not been scheduled please call one of the following numbers, based upon your location preference: - [facility] or [facility] - [phone] or toll free at [phone] - [place] - [phone] - [place] - [phone] - [place] - [phone] The device will be delivered to your home via UPS. You do not need to be home to sign for the package. Please use the equipment the night you receive it and return the equipment the following day. UPS packaging and return postage are included. Your device will contain instructions how to use the equipment and a contact number for a biochemistry technologist. The technologist can help address any problems that occur during the test. You will receive a telephone call or a RenéSim chart message approximately 1 week prior to receiving the home sleep apnea test equipment. To reschedule please call [phone]. - Avoid driving when drowsy. Recommend that if you are dozing off while driving, that you do not drive until your sleepiness is appropriately treated. -Encouraged healthy lifestyle with adequate sleep ( 7-9 hours per night), diet and exercise. Will call and send HSAT results to patient. Follow up in 1 year. If you have questions, feel free to send me a Celect message. I spent a total of 30 minutes as this was an established patient to me on the date of the service which included preparing to see the patient, [id number] patient care, completing clinical documentation, counseling and educating the patient/family/caregiver and ordering medications, tests, or procedures. Kizzy Ayala APRN.SAWMILL 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 Interval history : Concerned over elevated AHI. Pressure was suppose to be increased to 5-11 cmH20. Pressure readings 6-8. Sleeps on her back in an adjustable bed in 1.5 years. Sleeps well. Sleeps soundly. Wakes up feeling really a little stiff and some chest tightness. OOB [id number]. Getting 8 hours of sleep. Here for follow up for CAMRYN (APAP 5-11 cmH20 + MAD), HSAT with MAD results. Sleep Study Check-In Documentation Date: April 17, 2022 Name: Queenie Adan Comments: HST was returned in work order. Study did not occur. No recording on device. Unable to redeploy. Patient will be contacted for repeat testing. Pt declined retry at this time, had difficulties and frustration with set up, may call to reschedule around Tony Stinsno PSS SLEEP APNEA Sleep apnea type : CAMRYN Most Recent Apnea-Hypopnea Index (AHI): 62.9 Treatment : PAP therapy + MAD DME: [facility] PAP History: Uses AutoPAP + MAD for 8 hours per night, 7 nights per week. Current PAP settin-10 cm H2O. Difficulties with AutoPAP: None Reviewed objective PAP compliance data: [facility]: PAP download not currently available. Mask type: Nasal pillow interface Mask issues: Mask is irritating her ears. Tightness bothers her. Changes pillows frequently. Uses chin strap: No Uses ramp function: Yes, Protocol: Auto Uses humidity: Yes, Protocol: Distilled water There is a perceived benefit by the patient: Sleeping well. Sleeping soundly. Lives by herself. SLEEP HYGIENE QUESTIONS: Bedtime : 2100 Wake up Time : 3410-7191 Time it takes to fall sleep : Falling asleep quickly 10-15 minutes. Activities in bed before falling asleep : Reading in bed or listening to something at night. Number of times patient wakes up per night : 1 Reason (s) why patient wakes up during the night : Void Estimated total sleep time ( in a 24 hour period of time) : 8 Naps : Yes, Thursday, 2 hours PATIENT-ENTERED QUESTIONNAIRE SLEEP SCORES Sleep Questions 10/14/2022 Reason for visit: Sleep apnea Average hours slept in 24 hours: 8 Average hours of CPAP per night: 8 Percent of nights CPAP used at least 4 hours: 100 Accidents or near accidents due to drowsy drivin [place] Sleepiness Scale 08/15/2021 02/14/2022 10/14/2022 Score 9 (No daytime sleepiness) 13 (present daytime sleepiness) 11 (present daytime sleepiness) PROMIS CAT Sleep Disturbance 08/15/2021 02/14/2022 10/14/2022 PROMIS Sleep Disturbance T-Score 43 (within normal limits) 48 (within normal limits) 42 (within normal limits) PROMIS Sleep Disturbance Percentile 76 % 58 % 79 % Restless Leg Syndrome 02/14/2022 Score Incomplete PHQ-9 03/29/2022 10/14/2022 10/16/2022 Score 3 3 3 PROMIS Global Health - (T-Scores - the mean of general population = 50. Five points is a clinically meaningful difference.) 05/16/2022 08/12/2022 08/12/2022 Physical T-Score 50.8 44.9 44.9 Mental T-Score 62.5 53.3 53.3 PMH, PSH, SH: Reviewed SLEEP RELATED ROS Review of Systems Constitutional: Positive for fatigue. Respiratory: Negative. Cardiovascular: Positive for palpitations. Chronic Atrial Fibrillation. See Piping Supervisor next week. Genitourinary: Negative. 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 [place] [Hydrocodone-* Vomiting Penicillins Other: See Comments blisters CURRENT MEDICATIONS: zoledronic acid (RECLAST) 5 mg/100 mL pgbk PREMIX piggyback^Inject 100 mL intravenously as directed.^Disp: 100 mL^Rfl: 0 ramipril (ALTACE) 10 mg capsule^Take 1 capsule by mouth twice daily.^Disp: 180 capsule^Rfl: 1 potassium chloride ER (KLOR-CON M20) 20 mEq tablet^TAKE 2 TABLETS BY MOUTH EVERY 48 HOURS AND 4 TABLETS BY MOUTH EVERY 48 HOURS^Disp: 270 tablet^Rfl: 3 (Patient taking differently: TAKE 2 TABLETS BY MOUTH EVERY DAY AND 4 TABLETS BY MOUTH EVERY 48 HOURS) Fluorouracil (EFUDEX) 5 % cream^Apply to biopsy site (include entire nasal tip) twice daily for 6 weeks^Disp: 40 g^Rfl: 2 metoprolol succinate ER (TOPROL XL) 25 mg 24 hr tablet^Take 1 tablet by mouth daily at bedtime.^Disp: 90 tablet^Rfl: 3 CPAP/BIPAP/OTHER^Type .CPAPSettings into a note to see current settings/supplies/DME information.^Disp: 1 Each^Rfl: 0 exemestane (AROMASIN) 25 mg tablet^Take 1 tablet by mouth once daily. TAKE AFTER A MEAL.^Disp: 90 tablet^Rfl: 3 atorvastatin (LIPITOR) 20 mg tablet^Take 1 tablet by mouth daily at bedtime. For cholesterol.^Disp: 90 tablet^Rfl: 1 amLODIPine (NORVASC) 5 mg tablet^Take 1 tablet by mouth once daily.^Disp: 90 tablet^Rfl: 1 metFORMIN (GLUCOPHAGE) 500 mg tablet^Take 1 tablet by mouth twice daily with meals.^Disp: 180 tablet^Rfl: 1 apixaban (ELIQUIS) 5 mg tab(s)^Take 1 tablet by mouth twice daily. (restart 12/09/19)^Disp: 180 tablet^Rfl: 1 furosemide (LASIX) 40 mg tablet^Take 1 tablet by mouth every 48 hours AND 2 tablets every 48 hours. Alternate 40 mg daily with 80 mg daily.^Disp: 135 tablet^Rfl: 3 (Patient taking differently: Take 1 tablet daily AND 2 tablets every other day. Alternate 40 mg daily with 80 mg daily.) CPAP/BIPAP/OTHER^Type .CPAPSettings into a note to see current settings/supplies/DME information.^Disp: 1 Each^Rfl: 0 zoledronic acid (RECLAST) 5 mg/100 mL pgbk PREMIX piggyback^Inject 100 mL intravenously as directed.^Disp: 100 mL^Rfl: 0 CPAP/BIPAP/OTHER^Type .CPAPSettings into a note to see current settings/supplies/DME information.^Disp: 1 Each^Rfl: 0 CPAP/BIPAP/OTHER^Type .CPAPSettings into a note to see current settings/supplies/DME information.^Disp: 1 Each^Rfl: 0 acetaminophen (TYLENOL) 500 mg tablet^Take 1,000 mg by mouth as needed.^Disp: ^Rfl: palbociclib (IBRANCE) 125 mg tablet^Take 1 tablet (125mg) by mouth once daily for 21 days on then 7 days off. Take with or without food.^Disp: 21 tablet^Rfl: 5 biotin 5,000 mcg subl^Dissolve 1 tablet under the tongue once daily.^Disp: ^Rfl: Famotidine-Ca Carb-Mag Hydrox (PEPCID COMPLETE) 10-800-165 mg chew^Take 1 tablet by mouth once daily as needed.^Disp: ^Rfl: [id number] [phone] mg cap^Take 1 tablet by mouth.^Disp: ^Rfl: cholecalciferol, vitamin D3, (VITAMIN D3 ORAL)^Take 1,000 Units by mouth twice daily. ^Disp: ^Rfl: vit A/vit C/vit E/zinc/copper (PRESERVISION AREDS ORAL)^Take 1 tablet by mouth twice daily.^Disp: ^Rfl: CPAP^Pressure changed in my office to Autopap 9.5-15 cm H2O, Heat Humidity & heated Tubing (JIMBO) suitable mask, [employer], opt Chinstrap, G47.33.^Disp: 1 Device^Rfl: 11 (Patient taking differently: Pressure changed in my office to Autopap 5-8 cm H2O, Heat Humidity & heated Tubing (JIMBO) suitable mask, [employer], opt Chinstrap, G47.33.) gluc benitez/chondro benitez A/vit C/Mn (GLUCOSAMINE-CHONDROITIN COMPLX ORAL)^Take 1 tablet by mouth once daily. ^Disp: ^Rfl: Coenzyme Q10 300 mg cap^Take 300 mg by mouth once daily.^Disp: ^Rfl: melatonin 3 mg^Take 5 mg by mouth daily at bedtime. ^Disp: ^Rfl: Prior Hypersomnia/Narcolepsy Medications (20 years) Some values may be hidden. Unless noted otherwise, only the newest values recorded on each date are displayed. Hypersomnia/Narcolepsy Medications No data to display. Prior RLS Medications (last 20 years) Some values may be hidden. Unless noted otherwise, only the newest values recorded on each date are displayed. RLS Medications HYDROcodone 5 mg - acetaminophen 325 mg tablet (NORCO) Dose: 1-2 tablet X (PACU ONLY) PRN Starting date: 03/11/2017 Ending date: 03/11/2017 (Discontinued) HYDROmorphone 0.2 mg injection (DILAUDID) Dose: 0.2 mg EVERY 2 HOURS NEEDED HIGH RISK MEDICATION Caution: Hydromorphone is 5 - 7 times MORE POTENT than morphine. For example: Hydromorphone 1mg IV = morphine 7mg IV Starting date: 08/06/2020 Ending date: 08/10/2020 (Discontinued) HYDROmorphone 0.2 mg injection (DILAUDID) Dose: 0.2 mg ONCE HIGH RISK MEDICATION Caution: Hydromorphone is 5 - 7 times MORE POTENT than morphine. For example: Hydromorphone 1mg IV = morphine 7mg IV Starting date: 08/15/2020 Ending date: 08/15/2020 meperidine (PF) 12.5 mg injection (DEMEROL) Dose: 12.5 mg X (PACU ONLY) ONCE May Repeat 12.5 mg in 10 minutes X1 for Continued Shivering Starting date: 03/21/2020 Ending date: 03/21/2020 (Discontinued) meperidine (PF) 12.5 mg injection (DEMEROL) Dose: 12.5 mg EVERY 10 MINUTES NEEDED for shivering May Repeat 12.5 mg in 10 minutes X1 for Continued Shivering Starting date: 02/16/2020 Ending date: 02/16/2020 (Discontinued) morphine 4 mg injection Dose: 4 mg ONCE Starting date: 12/03/2019 Ending date: 12/03/2019 oxyCODONE 5-10 mg oral liquid (ROXICODONE) Dose: 5-10 mg EVERY 4 HOURS NEEDED Starting date: 08/06/2020 Ending date: 08/10/2020 (Discontinued) oxyCODONE IR 5-10 mg tab(s) (ROXICODONE) Dose: 5-10 mg EVERY 4 HOURS NEEDED Give 1 tab for Moderate Pain (4-6) Give 2 tab for Severe Pain (7-10) Starting date: 08/06/2020 Ending date: 08/06/2020 (Discontinued) oxyCODONE IR 5 mg tab(s) (ROXICODONE) Dose: 5 mg EVERY 6 HOURS NEEDED Starting date: 08/16/2020 Ending date: 08/21/2020 (Discontinued) oxyCODONE IR (ROXICODONE) 5 mg immediate release tablet Dose: 5 mg EVERY 6 HOURS NEEDED Starting date: 08/10/2020 Ending date: 08/13/2020 oxyCODONE IR (ROXICODONE) 5 mg immediate release tablet Dose: 5 mg EVERY 6 HOURS NEEDED Starting date: 08/20/2020 Ending date: 08/23/2020 Prior Insomnia Medications (last 20 years) Some values may be hidden. Unless noted otherwise, only the newest values recorded on each date are displayed. Insomnia Medications ALPRAZolam 0.5 mg tab(s) (XANAX) Dose: 0.5 mg EVERY 12 HOURS NEEDED Starting date: 02/12/2017 Ending date: 02/13/2017 (Discontinued) diazePAM 1 mg tab(s) (VALIUM) Dose: 1 mg 3 TIMES DAILY NEEDED Starting date: 08/16/2020 Ending date: 08/17/2020 (Discontinued) melatonin 3 mg tab(s) Dose: 3 mg AT BEDTIME Starting date: 02/12/2017 Ending date: 02/13/2017 (Discontinued) melatonin 6 mg tab(s) Dose: 6 mg AT BEDTIME Starting date: 12/04/2019 Ending date: 12/05/2019 (Discontinued) melatonin 3 mg tab(s) Dose: 3 mg DAILY AT 8 PM Starting date: 08/15/2020 Ending date: 08/21/2020 (Discontinued) melatonin 3 mg Dose: 5 mg AT BEDTIME Starting date: (active) melatonin tab(s) 5 mg Dose: 5 mg AT BEDTIME NEEDED insomnia Starting date: 08/06/2020 Ending date: 08/10/2020 (Discontinued) midazolam (PF) injection (VERSED) Dose: Starting date: 03/21/2020 Ending date: 03/21/2020 (Discontinued) PHYSICAL EXAMINATION: Deferred due to virtual visit via Zoom. PHYSICAL EXAM: Constitutional: Appearance: Well groomed. Well nourished female. Very pleasant. Neurological: General: No focal deficit present. Mental Status: A&OX3 (person, place, and time). Speech: Clear, projects well. Memory: Intact, responses appropriate. Psychiatric: Mood and Affect: Mood normal. Behavior: Behavior normal IMPRESSION: Diagnosis: Camryn (obstructive sleep apnea) (primary encounter diagnosis) Atrial fibrillation, chronic ([facility]) Sleep Studies (Reviewed Prior and Current): Polysomnogram performed on 01/11/2019 revealed severe CAMRYN (Total AHI 65.4, Off-Supine AHI 43.6, Supine AHI 65.4) that was associated with a minimum O2 saturation of 72%. Respiratory events consisted of obstructive apneas, hypopneas, and RERAs. The severity of this sleep related breathing disorder may be underestimated due to the presence of mild flow and effort decrements associated with arousal and/or oxygen desaturation not meeting established CMS respiratory event criteria. 2. Atrial fibrillation on limited channel EKG recording. PSG Split Night Study 07/04/2021 revealed severe CAMRYN (AHI of 62.9) that was associated with a minimum O2 saturation of 82%. 1. The patient used her oral appliance during the diagnostic portion of the study and the AHI was 62.9 with the oral appliance in place, demonstrated lack of efficacy of the oral appliance. 2. The decision was made to split the patient onto CPAP given the elevated AHI with the oral appliance in place. PAP titration was done with the oral appliance in place. 3. During the PAP titration portion, at CPAP 7 and 8 cmH2O the AHI was normalized and the oxygen saturation was maintained above 88%. At CPAP 9 and 10 cmH2O the patient began to experience central apneas that appeared to be treatment emergent, but also had the appearance of Hair Hay breathing pattern. Atrial fibrillation was noted. RECOMMENDATIONS: Auto-titrating CPAP 5-8 cmH2O with humidification and with concurrent use of oral appliance. Close clinical follow up with data download after 1 month to ensure tolerance, efficacy, and compliance. Would consider full night PAP titration study with Bilevel PAP, possible addition of back rate, and/or ASV if significant central events are noted on the download. Overview: Ms. Queenie Adan is a 76 year old male with a PMH of CAMRYN, Atrial Fibrillation, S/P Ablation of Atrial Fibrillation, CHF, CAD, Pulmonary HTN, Sinus Pause, Valvular Heart Disease who presents in person for CAMRYN (APAP 5-11 cmH20) and MAD. Concerned over elevated AHI. Pressure was suppose to be increased to 5-11 cmH20. Pressure readings 6-8. Sleeps on her back in an adjustable bed in 1.5 years. Sleeps well. Sleeps soundly. Wakes up feeling really a little stiff and some chest tightness. OOB [id number]. Getting 8 hours of sleep. - Doing well with PAP therapy. - Denies mask or pressure intolerance. - Compliant and benefiting from treatment. - [facility] was suppose to increase her PAP pressure 5-11 cmH20. Plan: - Increase Auto CPAP 5-11 cmH2O. - Will send script to [facility]. - Remember to clean your mask and equipment regularly, as directed. - You should be eligible for new supplies approximately every 3-6 months, depending on your insurance coverage. Contact your Durable Medical Equipment (DME) company for new supplies as needed. - Follow up in 6 months with [facility]. If you have questions, feel free to send me a Celect message. I spent a total of 25 minutes as this was an established patient to me on the date of the service which included preparing to see the patient, [id number] patient care, completing clinical documentation, counseling and educating the patient/family/caregiver and ordering medications, tests, or procedures. Kizzy Ayala APRN.EUNICE documented in this encounter [facility] 10-15-2022 Miscellaneous Notes Ajit Schneider MD P Endo F20 Nurse Pool Please schedule her for late November of this year thank you. Ajit Schneider MD Pt. Was called to schedule Reclast; no answer; so detailed VM was left to contact endo nurses. Thanks, MAURISIO BhandariN RN [facility] documented in this encounter [facility] 10-15-2022 History of Present illness Narrative [facility] LAST SEEN: 06-04-2021 CC: HPTH follow up - parathyroidectomy - 3 gland - in late January of 2020 - breast cancer on orals - new lung nodules HPI: Queenie Adan is a 77 year old female who initially presented 10-19-2018 in referral for possible HPTH, with a history of modestly elevated calcium, a single elevated PTH, normal 25OHD. - Wrist fracture due to a fall with ORIF - no renal stones FOLLOW UP VISIT 10-15-2022: Presents for the first time in 18 months, Reclast 12-09-2021 given. -- and she is wanting to get scheduled again. She has had falls but without injuries but no fx either. No interval changes to report NM scan remains unchanged (cancer surveillance). 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 Cody Breast cancer ([facility]) 1998 lobular, left side. Stage I, ER+/IN+/HER2-. Seeing Dr. Friend Chronic diastolic CHF (congestive heart failure) (HCC) Coronary artery disease mild Elevated alkaline phosphatase level Falls frequently GERD (gastroesophageal reflux disease) HTN (hypertension) Hyperparathyroidism (HCC) IPMN (intraductal papillary mucinous neoplasm) 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, estrogen receptor positive (HCC) 01/09/2017 Osteoarthritis, knee Pancreatic cyst 11/2019 Pancreatitis PONV (postoperative nausea and vomiting) Prediabetes Recurrent seroma of breast S/P ablation of atrial fibrillation 2009 Sleep apnea on CPAP Vaginal dryness Varicose veins of both lower extremities SURGICAL HISTORY: PAST SURGICAL HISTORY Procedure Laterality Date ABLATION CATHETER 09/2014 venous ablation left GSV AFIB ABLATION/PULM VEIN ISOLATION 2009 APPENDECTOMY 1957 BREAST BIOPSY 1973 benign BREAST LUMPECTOMY HX Left 1998 left breast: 08/02 nodes; s/p Adj Chemo & Adj Radt CARDIAC CATHETERIZATION HX 07/2014 ostail LAD 35% COLONOSCOPY 06/2016 5 mm polyp. repeat in 5 years EXC CYST/ABERRANT BREAST TISSUE OPEN 1/> LESION 03/21/2020 EXCISION MALIGNANT LESIONS,TRUNK,ARMS,LEGS Left 03/11/2017 Re-Excision of Left Mast site: negative for cancer MASTECTOMY, SIMPLE, COMPLETE Left 02/12/2017 Left Compl Mast: pT1cNx, ER/IN+, HER2 Neg IDC w/Radial Margin MIDLINE INSERTION/CONSULT 08/17/2020 NIPPLE EXPLORATION Right 2013 ductal excision Right breast OTHER 2007 left knee ligament replacement OTHER 07/2020 Pancreatic surgery PAST SURGICAL HISTORY OF 11/2019 pancreatic cyst fluid removal REMOVE CATARACT, INSERT LENS,EX Bilateral FAMILY HISTORY: Family History Problem Relation Age of Onset Breast Cancer Mother Heart Mother 95 Thyroid Mother Coronary Artery Disease Father 75 Prostate Cancer Brother pancreatic Prostate Cancer Brother Hypertension Brother Cancer Brother Mantle Cell Lymphnomas - dx last month Hypertension Brother Hypertension Brother Thyroid Brother Hypertension Brother Hypertension Brother Breast Cancer Maternal Aunt lived til 103 SOCIAL HISTORY: Social History Marital status: Spouse name: Years of education: Number of children: Social History Main Topics Drug use: Unknown ONCOLOGY: 06-12-2020 DIAGNOSIS: Local recurrence of breast cancer with h/o stage IIA, T1cN1, invasive lobular carcinoma of the left breast in 1998 and stage IA, T1cN0, grade III invasive ductal carcinoma of the left breast in 2016 s/p left mastectomy on 02/12/17. IMAGING DATE OF EXAM: Dec 13 2020 12:15PM WON 0014 - MA BONE WHOLE BODY / PROCEDURE REASON: left breast cancer * * * * Physician Interpretation * * * * WHOLE BODY BONE SCAN CLINICAL HISTORY: 75 years year old Female with history of breast cancer. TECHNIQUE: 19.9 mCi technetium 99m MDP IV. Planar images of the whole body obtained in anterior and posterior views at approximately 3 hours post injection. Static images of the skull, thorax and pelvis were obtained. COMPARISON: No prior bone scan for comparison CORRELATION: CT chest, abdomen and pelvis dated 12/11/2020. RESULT: Whole body and static images show no focal or segmentally increased tracer uptake to suggest osseous metastatic disease on this examination. There is heterogeneous uptake throughout the thoracolumbar spine and bilateral sacroiliac joints, corresponding to degenerative changes on CT. Increased uptake is identified in the bilateral first CMC joints, knees and feet, compatible with degenerative change. DXA: DATE OF EXAM: Jun 03 2021 2:32PM [facility] 0804 - DXA - AXIAL SKELETON / PROCEDURE REASON: Primary hyperparathyroidism (HCC) * * * * Physician Interpretation * * * * PROCEDURE: BD DXA - AXIAL SKELETON, BD DXA - FOREARM SKELETON INDICATION: Primary hyperparathyroidism (HCC) TECHNIQUE: Low dose AP spine, forearm and hip images COMPARISON: 04/11/2019 LUMBAR SPINE: The bone mineral density from L1 through L4 is 0.903 grams per square centimeter which yields a T-score of -1.0 . This is not significantly changed . LEFT HIP: The bone mineral density of the total region of the hip is 0.904 grams per square centimeter which yields a T-score of -0.3 . . LEFT FEMORAL NECK: The bone mineral density of the femoral neck is 0.754 grams per square centimeter which yields a T-score of -0.9 . This is not significantly changed . RIGHT HIP: The bone mineral density of the total region of the hip is 0.938 grams per square centimeter which yields a T-score of 0.0 . . RIGHT FEMORAL NECK: The bone mineral density of the femoral neck is 0.826 grams per square centimeter which yields a T-score of -0.2 . This is not significantly changed . LEFT FOREARM: The bone mineral density of the radius 1/3 is 0.536 grams per square centimeter which yields a T-score of -2.6 . . CHANGE IS STATISTICALLY SIGNIFICANT IN THE SPINE OR HIP IF GREATER THAN OR EQUAL TO 0.04g/cm2 IMPRESSION: Osteoporosis . I have personally previously reviewed these images extensively: The spine images are uninterpretable, the hips are essentially stable. LABS: Component Latest Ref Rng & Units 10/26/2020 01/18/2021 02/15/2021 04/18/2021 Protein, Total 6.3 - 8.0 g/dL 7.6 7.4 7.0 Albumin 3.9 - 4.9 g/dL 4.9 4.8 4.5 Calcium 8.5 - 10.2 mg/dL 9.7 9.1 9.3 Bilirubin, Total 0.2 - 1.3 mg/dL 1.2 0.7 0.7 Alkaline Phosphatase 34 - 123 U/L 144 (H) 153 (H) 140 (H) AST 13 - 35 U/L 19 19 21 Glucose 74 - 99 mg/dL 115 (H) 115 (H) 116 (H) BUN 7 - 21 mg/dL 28 (H) 22 (H) 24 (H) Creatinine 0.58 - 0.96 mg/dL 1.02 (H) 0.92 0.94 Sodium 136 - 144 mmol/L 136 135 (L) 137 Potassium 3.7 - 5.1 mmol/L 4.0 4.0 3.9 Chloride 97 - 105 mmol/L 99 97 101 CO2 22 - 30 mmol/L 27 27 25 Anion Gap 9 - 18 mmol/L 10 11 11 ALT 7 - 38 U/L 15 14 18 eGFR- >60 >60 >60 eGFR-All Other Races . 53 59 58 Vitamin D 25 Hydroxy 31.0 - 80.0 ng/mL 74.2 PARATHYROID SURGERY:02-16-2020 FINAL DIAGNOSIS A. Parathyroid gland, right upper, parathyroidectomy - Mildly hypercellular parathyroid. B. Parathyroid gland, left upper, parathyroidectomy - Focally hypercellular parathyroid. C. Parathyroid gland, right lower, parathyroidectomy - Normocellular parathyroid. Current Outpatient Medications on File Prior to Visit Medication Sig atorvastatin (LIPITOR) 20 mg tablet Take 1 tablet by mouth once daily. potassium chloride ER (K-DUR, KLOR-CON) 20 mEq tablet Take 2 tablets by mouth twice daily. furosemide (LASIX) 40 mg tablet Take 1 tablet by mouth once daily. Alternate 40 mg daily with 80 mg daily metoprolol succinate ER (TOPROL XL) 25 mg 24 hr tablet Take 1 tablet by mouth daily at bedtime. exemestane (AROMASIN) 25 mg tablet Take 1 tablet by mouth once daily. TAKE AFTER A MEAL. Famotidine-Ca Carb-Mag Hydrox (PEPCID COMPLETE) 10-800-165 mg chew Take 1 tablet by mouth once daily as needed. [id number]-ast [phone] mg cap Take 1 tablet by mouth. palbociclib (IBRANCE) 125 mg tablet Take 1 tablet (125mg) by mouth once daily for 21 days on then 7 days off. Take with or without food. cholecalciferol, vitamin D3, (VITAMIN D3 ORAL) Take 5,000 Units by mouth once daily. apixaban (ELIQUIS) 5 mg tab(s) Take 1 tablet by mouth twice daily. (restart 12/09/19) amLODIPine (NORVASC) 5 mg tablet Take 1 tablet by mouth once daily. ramipril (ALTACE) 10 mg capsule Take 1 capsule by mouth twice daily. vit A/vit C/vit E/zinc/copper (PRESERVISION AREDS ORAL) Take 1 tablet by mouth twice daily. CPAP Pressure changed in my office to Autopap 9.5-15 cm H2O, Heat Humidity & heated Tubing (JIMBO) suitable mask, [employer], opt Chinstrap, G47.33. gluc benitez/chondro benitez A/vit C/Mn (GLUCOSAMINE-CHONDROITIN COMPLX ORAL) Take 1 tablet by mouth once daily. biotin 5,000 mcg subl Dissolve 5,000 mcg under the tongue twice daily. Coenzyme Q10 (CO Q-10) 300 mg cap Take 300 mg by mouth once daily. melatonin 3 mg Take 5 mg by mouth daily at bedtime. No current facility-administered medications on file prior to visit. PHYSICAL EXAMINATION: BP 120/63 Pulse 79 Wt 65.3 kg (144 lb) BMI 25.92 kg/m General appearance: well appearing, alert and in no acute distress; overweight Head: normal Eyes: Anicteric sclera. Pupils are equally round and reactive to light. Extraocular movements are intact. Skin: skin color, texture, turgor normal, no rashes or lesions Neck: Supple, no adenopathy; thyroid symmetric, normal size, no bruits Heart: RRR Lungs: CTAB Abdomen: benign Back: benign, nontender -Shoulder height position: normal -Pelvic Tilt: normal -Dorsal kyphosis: none noted and unchanged from previous -Lumbar curve: normal -Scoliosis: none -Movement: Normal upon exam Extremities: No edema, Musculoskeletal: Spine range of motion normal. Muscular strength intact Neuro: Gait normal. Sensation grossly intact. ASSESSMENT & PLAN 1. Primary hyperparathyroidism (HCC) - ICD9: 252.01, ICD10: E21.0 2. Age-related osteoporosis without current pathological fracture - ICD9: 733.01, ICD10: M81.0 - underwent successful 3-gland resection - continues to consume calcium-rich diet - continues D supplement - BMD is stable - but she is on high risk drugs from a bone/ osteoporosis standpoint tho with few other risk factors for fracture - her work out routine is impressive as is her healthy lifestyle -will give 2nd Reclast infusion 11/2022 and then see her back in another year I thank you for the opportunity to participate in the care of Queenie Adan Please do not hesitate to contact me if you have further concerns or questions. Ajit Schneider, MS, RD, MD, CCD, FACN, FACP, FACE Diplomate, Citizen Of [place] Board of Obesity Medicine Diplomate, National Board of Physician [employer] F-20 / [phone] / [id number] Any part of this document that has been added/copied & pasted from other documents has been reviewed for accuracy and updated as appropriate at the time of the patient encounter documented in this encounter [facility] 10-15-2022 Instructions Aurora James Ma - 10/15/2022 2:20 PM EDT Thank you for choosing the [facility] Department of Endocrinology, Diabetes and Metabolism. Did you know that you need to call 48 hours in advance of your scheduled visit, if you are unable to make your appointment? The [facility] [place] thanks you for your commitment, because patients not showing to their appointment results in a lost opportunity for patients to receive world class health care at the [facility]. To Cancel an appointment, please choose one of the following: - Call the Appointment Call Center at [phone] - From [employer], Go to Appointments - Cancel Appts If cancelling, consider your need to reschedule to prevent further delays in your care. To Schedule an appointment, please choose one of the following: - Call the Appointment Call Center at [phone] - From [employer], Go to Appointments - Request an Appt documented in this encounter [facility] 10-13-2022 History of Present illness Narrative Episode Visit Count: 8 Therapist That Will Accept/Oversee The Plan Of Care: Anselmo Prather PT Start of Care Date: 09/18/22 Onset Date: 09/18/20 (unsteady for 2 years but getting progressively worse) Plan of Care Certification Date: 09/18/22 Next Certification Due Date: 11/13/22 Patient Identified by Name and Date of : Yes REHABILITATION AND SPORTS THERAPY PHYSICAL THERAPY TREATMENT NOTE ASSESSMENT: Queenie Adan tolerated the session with fatigue, decreased symptoms, and no issues. She demonstrated improvements in balance, gait and exercise tolerance. The patient will continue to benefit from ongoing skilled physical therapy to progress toward set goals and for reassessment by supervising therapist. PLAN FOR NEXT VISIT: Re-assess for plan of care update and continue balance and strength/endurance training. Progress to tolerance. SUBJECTIVE: Patient Reason for Visit: Pt reports that overall she is slightly better. She reports compliance with HEP and that she has been doing independent workouts 2x week and low intensity exercise class 2 additional days per week. She reports consistent use of cane and she appreciates the support of cane. Pain: Pain Pain Level: 0 Post Treatment Pain Post Treatment Pain Level: No Change Post Treatment Symptoms: Pt is pleased with her current improvements with balance exercises. OBJECTIVE MEASURES WITH LEVEL OF FUNCTION: TREATMENT: Therapeutic Exercise: 1: [employer] StepOne seat #10 x6 minutes with level 2 resistance (pt provided an update on her condition and plan of care reviewed.) 2: repeated sit to stand from chair with 11# ball in hands 3x12 3: B forward step ups on large dynadisc in // bars 2x12 each 4: mini-squats reviewed for HEP. Skilled Intervention: Patient was educated in proper exercise technique and purpose for exercises. Skilled judgment was provided in selection of appropriate interventions. Correct performance of therapeutic exercises was facilitated with verbal and visual cuing. Patient education as noted. Neuromuscular Re-Education: 1: marching in place on square blue foam 2x15 2: NBOS eyes closed x30 seconds 3: B tandem stance x30 seconds each 4: NBOS on blue foam eyes open 2x30 seconds 5: NBOS on blue foam eyes closed 2x30 seconds 6: balance board side to side with eyes open and closed x each 7: balance board front to back with eyes open and eyes closed x20 each 8: forward stepping over 6 red 6 inch hurdles x2 passes 9: B sidestepping over 6 red 6 inch hurdles x2 pass each direction. 10: B sidestepping on 2 blue foam balance beams end to end x1 pass each direction 11: tandem ambulation on 2 blue foam balance beams end to end x4 passes Skilled Intervention: Skilled judgment used to assess appropriate program for balance and coordination activity. Ensured patient safety with use of gait belt and intermittent assist. Billing Therapeutic Exercise Treatment Minutes: 20 Neuromuscular Re-Education Treatment Minutes: 25 Total Treatment Time Minutes (timed/untimed): 45 Anselmo Prather PT documented in this encounter [facility] 10-08-2022 History of Present illness Narrative Episode Visit Count: 7 Therapist That Will Accept/Oversee The Plan Of Care: Anselmo Prather PT Start of Care Date: 09/18/22 Onset Date: 09/18/20 (unsteady for 2 years but getting progressively worse) Plan of Care Certification Date: 09/18/22 Next Certification Due Date: 11/13/22 Patient Identified by Name and Date of : Yes REHABILITATION AND SPORTS THERAPY PHYSICAL THERAPY TREATMENT NOTE ASSESSMENT: Queenie Adan tolerated the session with shortness of breath, decreased endurance, fatigue, and no issues. She demonstrated improvements in balance, exercise tolerance and gait. The patient will continue to benefit from ongoing skilled physical therapy to progress toward set goals. PLAN FOR NEXT VISIT: Continue with dynamic balacne training and LE strengthening. Review gait training prn. Begin the process preparing for possible d/c. SUBJECTIVE: Patient Reason for Visit: Pt reports that overall she is either the same or slightly better since last session. She reports that progress has been gradual and difficult to measure. She reports compliance with HEP 2x day. She also reports taking an exercise class that focuses on cardio and balance. Pain: Pain Pain Level: 0 Post Treatment Pain Post Treatment Pain Level: No Change Post Treatment Symptoms: Fatigue from a good workout but no increase in pain. OBJECTIVE MEASURES WITH LEVEL OF FUNCTION: Gait Gait Observation: Continued progressive improvements in gait with cane. TREATMENT: Therapeutic Exercise: 1: SciFit StepOne seat #10 x6 minutes with level 2 resistance (pt provided an update on her condition and plan of care reviewed.) 2: *repeated sit to stand from chair with 11# ball in hands 3x10 3: B forward step ups on large dynadisc in // bars 2x12 each 4: *mini-squats with UE support 2x10 Skilled Intervention: Patient was educated in proper exercise technique and purpose for exercises. Reviewed and educated patient on additions/changes for home exercise program as above (*). Skilled judgment was provided in selection of appropriate interventions. Provided written instruction for home exercise program to facilitate proper performance and compliance. Correct performance of therapeutic exercises was facilitated with verbal and visual cuing. Patient education as noted. Neuromuscular Re-Education: 1: marching in place on square blue foam 2x12 2: NBOS eyes closed x30 seconds 3: B tandem stance x30 seconds each 4: NBOS on blue foam eyes open 2x30 seconds 5: NBOS on blue foam eyes closed 2x30 seconds 6: balance board side to side with eyes open and closed x15 each 7: balance board front to back with eyes open and eyes closed x15 each 8: forward stepping over 6 red 6 inch hurdles x2 passes 9: B sidestepping over 6 red 6 inch hurdles x2 pass each direction. 10: B sidestepping on 2 blue foam balance beams end to end x1 pass each direction 11: tandem ambulation on 2 blue foam balance beams end to end x4 passes Skilled Intervention: Skilled judgment used to assess appropriate program for balance and coordination activity. Ensured patient safety with use of gait belt and intermittent assist . Billing Therapeutic Exercise Treatment Minutes: 20 Neuromuscular Re-Education Treatment Minutes: 25 Total Treatment Time Minutes (timed/untimed): 45 Anselmo Prather PT documented in this encounter [facility] 10-06-2022 History of Present illness Narrative Episode Visit Count: 6 Therapist That Will Accept/Oversee The Plan Of Care: Anselmo Prather PT Start of Care Date: 09/18/22 Onset Date: 09/18/20 (unsteady for 2 years but getting progressively worse) Plan of Care Certification Date: 09/18/22 Next Certification Due Date: 11/13/22 Patient Identified by Name and Date of : Yes REHABILITATION AND SPORTS THERAPY PHYSICAL THERAPY TREATMENT NOTE ASSESSMENT: Queenie Adan tolerated the session with fatigue and no issues. She demonstrated improvements in balance and gait. The patient will continue to benefit from ongoing skilled physical therapy to progress toward set goals. PLAN FOR NEXT VISIT: Continue with dynamic balacne training and LE strengthening. Review gait training prn. SUBJECTIVE: Patient Reason for Visit: Pt reports that overall she is doing well and has been compliant with HEP 2x day. She denies any pain or problems following last session, just fatigue from a good workout. She reports using cane 50% of time. Pain: Pain Pain Level: 0 Post Treatment Pain Post Treatment Pain Level: No Change Post Treatment Symptoms: Pt demonstrated improved ability with balance training and denied any increase in pain, just fatigue from a good workout. OBJECTIVE MEASURES WITH LEVEL OF FUNCTION: Gait Gait Observation: More stable with cane. TREATMENT: Therapeutic Exercise: 1: SciFit StepOne seat #10 x6 minutes with level 2 resistance (pt provided an update on her condition and plan of care reviewed.) 2: repeated sit to stand from chair with 7# ball in hands 3x12 3: B forward step ups on large dynadisc in // bars 2x12 each Skilled Intervention: Patient was educated in proper exercise technique and purpose for exercises. Skilled judgment was provided in selection of appropriate interventions. Correct performance of therapeutic exercises was facilitated with verbal and visual cuing. Patient education as noted. Neuromuscular Re-Education: 1: marching in place on square blue foam 2x12 2: NBOS eyes closed x30 seconds 3: B tandem stance x30 seconds each 4: NBOS on blue foam eyes open 2x30 seconds 5: NBOS on blue foam eyes closed 2x30 seconds 6: balance board side to side with eyes open and closed x15 each 7: balance board front to back with eyes open and eyes closed x15 each 8: forward stepping over 6 red 6 inch hurdles x2 passes 9: B sidestepping over 6 red 6 inch hurdles x2 pass each direction. 10: B sidestepping on 2 blue foam balance beams end to end x1 pass each direction 11: tandem ambulation on 2 blue foam balance beams end to end x2 passes Skilled Intervention: Skilled judgment used to assess appropriate program for balance and coordination activity. Ensured patient safety with use of gait belt and intermittent assist. Billing Therapeutic Exercise Treatment Minutes: 20 Neuromuscular Re-Education Treatment Minutes: 25 Total Treatment Time Minutes (timed/untimed): 45 Anselmo Prather PT documented in this encounter [facility] 10-03-2022 History of Present illness Narrative Episode Visit Count: 5 Therapist That Will Accept/Oversee The Plan Of Care: Anselmo Prather PT Start of Care Date: 09/18/22 Onset Date: 09/18/20 (unsteady for 2 years but getting progressively worse) Plan of Care Certification Date: 09/18/22 Next Certification Due Date: 11/13/22 Patient Identified by Name and Date of : Yes REHABILITATION AND SPORTS THERAPY PHYSICAL THERAPY TREATMENT NOTE ASSESSMENT: Queenie Adan tolerated the session with fatigue and no issues. She demonstrated improvements in gait, balance and use of cane. The patient will continue to benefit from ongoing skilled physical therapy to progress toward set goals. PLAN FOR NEXT VISIT: Continue advanced balance training with close supervision. Continue therex for LE strength and endurance. SUBJECTIVE: Patient Reason for Visit: Pt reports that overall she is better and feeling stronger. She reports compliance with HEP 2x day. She reports compliance with use of cane 50-75% of time. Pain: Pain Pain Level: 0 Post Treatment Pain Post Treatment Pain Level: No Change Post Treatment Symptoms: Pt reported fatigue but denied any increased pain or problems OBJECTIVE MEASURES WITH LEVEL OF FUNCTION: Gait Gait Observation: Pattern is improved with cane but consistent use reminded. TREATMENT: Therapeutic Exercise: 1: SciFit StepOne seat #10 x6 minutes (pt provided an update on her condition and plan of care reviewed.) 2: repeated sit to stand from chair with 7# ball in hands 3x10 3: B forward step ups on dome side of BOSU in // bars 2x12 each Skilled Intervention: Patient was educated in proper exercise technique and purpose for exercises. Skilled judgment was provided in selection of appropriate interventions. Correct performance of therapeutic exercises was facilitated with verbal and visual cuing. Patient education as noted. Neuromuscular Re-Education: 1: marching in place on square blue foam 2x10 2: NBOS eyes closed x30 seconds 3: B tandem stance x30 seconds each 4: NBOS on blue foam eyes open x30 seconds 5: NBOS on blue foam eyes closed x30 seconds 6: balance board side to side with eyes open and closed x15 each 7: balance board front to back with eyes open and eyes closed x15 each 8: forward stepping over 6 red 6 inch hurdles x2 passes 9: B sidestepping over 6 red 6 inch hurdles x1 pass each direction. 10: B sidestepping on 2 blue foam balance beams end to end x1 pass each direction 11: tandem ambulation on 2 blue foam balance beams end to end x2 passes Skilled Intervention: Skilled judgment used to assess appropriate program for balance and coordination activity. Ensured patient safety with use of gait belt and intermittent assist. Billing Therapeutic Exercise Treatment Minutes: 15 Neuromuscular Re-Education Treatment Minutes: 30 Total Treatment Time Minutes (timed/untimed): 45 Anselmo Prather PT documented in this encounter [facility] 10-01-2022 Miscellaneous Notes Request completed and faxed. Confirmed and filed. Johanna Kim Ma Type of letter/form/fax request - Medical Necessity Form received from Luciaan Mary on 2c floor and placed on [facility] Tera Phelpslin's desk for completion. Completed form needs to be faxed to [phone]. Route to [place] when form completed for processing documented in this encounter [facility] 09-30-2022 History of Present illness Narrative Episode Visit Count: 4 Therapist That Will Accept/Oversee The Plan Of Care: Anselmo Prather PT Start of Care Date: 09/18/22 Onset Date: 09/18/20 (unsteady for 2 years but getting progressively worse) Plan of Care Certification Date: 09/18/22 Next Certification Due Date: 11/13/22 Patient Identified by Name and Date of : Yes REHABILITATION AND SPORTS THERAPY PHYSICAL THERAPY TREATMENT NOTE ASSESSMENT: Queenie Adan tolerated the session with fatigue, expected muscle soreness, and no issues. She demonstrated improvements in balance, gait and exercise tolerance. The patient will continue to benefit from ongoing skilled physical therapy to progress toward set goals. PLAN FOR NEXT VISIT: Continue with LE and trunk strengthening to improve ease of functional mobility. Conitinue with balance training, progressing dynamic activities. Continue gait trainig prn. SUBJECTIVE: Patient Reason for Visit: Pt reports that overall she has noticed minimal to no change since last session. She reports compliance with HEP 2x day and that she has been practicing with her new cane. She denies any pain or problems following last session. Pain: Pain Pain Level: 0 Post Treatment Pain Post Treatment Pain Level: No Change Post Treatment Symptoms: Pt reported and demonstrated fatigue but denied any increase in pain. OBJECTIVE MEASURES WITH LEVEL OF FUNCTION: Gait Gait Observation: Pattern is improved with cane. TREATMENT: Therapeutic Exercise: 1: SciFit StepOne seat #10 x5 minutes (Pt provided an update on her condition and plan of care reviewed) 2: repeated sit to stand from chair without UE assist 3x10 3: B forward step ups on dome side of BOSU in // bars 2x10 each 4: HEP reviewed and continuation encouraged to tolerance. Skilled Intervention: Patient was educated in proper exercise technique and purpose for exercises. Skilled judgment was provided in selection of appropriate interventions. Correct performance of therapeutic exercises was facilitated with verbal and visual cuing. Patient education as noted. Neuromuscular Re-Education: 1: NBOS eyes open 2x30 seconds 2: NBOS eyes closed 2x30 seconds 3: B tandem stance x30 seconds each 4: NBOS on blue foam eyes open x30 seconds 5: NBOS on blue foam eyes closed x30 seconds 6: balance board side to side with eyes open and closed x15 each 7: balance board front to back with eyes open and eyes closed x15 each Skilled Intervention: Skilled judgment used to assess appropriate program for balance and coordination activity. Ensured patient safety with use of gait belt Gait Trainin: Proper gait with cane reviewed and encouraged. Skilled Intervention: Facilitated proper gait cycle with the use of verbal and visual cues for correction of gait deviations identified in the objective section above. Gait belt utilized during session for safety. Billing Therapeutic Exercise Treatment Minutes: 25 Neuromuscular Re-Education Treatment Minutes: 15 Gait Training Treatment Minutes: 5 Total Treatment Time Minutes (timed/untimed): 45 Anselmo Prather PT documented in this encounter [facility] 09-26-2022 History of Present illness Narrative Episode Visit Count: 3 Therapist That Will Accept/Oversee The Plan Of Care: Anselmo Prather PT Start of Care Date: 09/18/22 Onset Date: 09/18/20 (unsteady for 2 years but getting progressively worse) Plan of Care Certification Date: 09/18/22 Next Certification Due Date: 11/13/22 Patient Identified by Name and Date of : Yes REHABILITATION AND SPORTS THERAPY PHYSICAL THERAPY TREATMENT NOTE ASSESSMENT: Queenie Adan tolerated the session with fatigue, expected muscle soreness, and no issues. She demonstrated improvements in gait, use of cane, balance and exercise tolerance. The patient will continue to benefit from ongoing skilled physical therapy to progress toward set goals. PLAN FOR NEXT VISIT: Continue with gait and balance training as well as functional LE and core strengthening to improve safety with functional mobility. SUBJECTIVE: Patient Reason for Visit: Pt reports compliance with HEP 2x day and that she obtained a cane on 09/24/22 but she has not noticed any significant changes. Pain: Pain Pain Level: 0 Post Treatment Pain Post Treatment Pain Level: No Change Post Treatment Symptoms: During and after session pt reported fatigue but denied any increase in pain, just a good workout. OBJECTIVE MEASURES WITH LEVEL OF FUNCTION: Gait Gait Observation: Pt gait is improved with use of cane and she is more stable after rising when she has cane. TREATMENT: Neuromuscular Re-Education: 1: Pt was advised to always back up until she feels chair on her legs before sitting down. 2: NBOS eyes open 2x30 seconds 3: NBOS eyes closed 2x30 seconds 4: B tandem stance 2x30 seconds each 5: NBOS on blue foam eyes open 2x30 seconds 6: NBOS on blue foam eyes closed 2x30 seconds 7: balance board side to side with eyes open and closed x15 each 8: balance board front to back with eyes open and eyes closed x15 each 9: forward stepping over 6 red 6 inch hurdles x2 passes 10: B sidestepping over 6 red 6 inch hurdles x1 pass each direction. 11: HEP reviewed and continuation encouraged but she was reminded not to attempt any balance exercises. Skilled Intervention: Skilled judgment used to assess appropriate program for balance and coordination activity. Ensured patient safety with use of gait belt and intermittent assist. Patient education as noted. Gait Trainin: Pt brought her new cane today. Her cane height was inspected and she was educted on how to tighten the adjustment nut. Proper use of the cane instructed, demonstrated and verbal cues provided as she practiced use of cane. Mirror was used for feedback. She was encouraged to take symmetrical steps, keep cane with L LE and use cane in R hand. Skilled Intervention: Facilitated proper gait cycle with the use of verbal, visual, and tactile cues for correction of gait deviations identified in the objective section above. Gait belt utilized during session for safety. Billing Neuromuscular Re-Education Treatment Minutes: 30 Gait Training Treatment Minutes: 15 Total Treatment Time Minutes (timed/untimed): 45 Anselmo Prather PT documented in this encounter [facility] 09-23-2022 History of Present illness Narrative Episode Visit Count: 2 Therapist That Will Accept/Oversee The Plan Of Care: Anselmo Prather PT Start of Care Date: 09/18/22 Onset Date: 09/18/20 (unsteady for 2 years but getting progressively worse) Plan of Care Certification Date: 09/18/22 Next Certification Due Date: 11/13/22 Patient Identified by Name and Date of : Yes REHABILITATION AND SPORTS THERAPY PHYSICAL THERAPY TREATMENT NOTE ASSESSMENT: Queenie Adan tolerated the session with shortness of breath, decreased endurance, fatigue, expected muscle soreness, and no issues. She demonstrated improvements in gait with cane. The patient will continue to benefit from ongoing skilled physical therapy to progress toward set goals. PLAN FOR NEXT VISIT: Review, correct and progress HEP to tolerance. Continue balance training and gait training with cane and assist pt in obtaining a cane. Progress WBing strengthening to tolerance next session as well as balance training. SUBJECTIVE: Patient Reason for Visit: Pt reports compliance with HEP 2x day without pain or problems. She denies any significant changes overall since evaluation 09/18/22. She reports that she is borrowing a friends cane because she has not purchased one for herself yet. She forgot her friend's cane in the car. She denies any pain currently. She denies any falls since evaluation. Pain: Pain Pain Level: 0 Post Treatment Pain Post Treatment Pain Level: No Change Post Treatment Symptoms: During and after session pt reported fatigue but denied any increase in pain. OBJECTIVE MEASURES WITH LEVEL OF FUNCTION: Gait Gait Observation: Pt gait is unsteady, especially immediately after rising. She arrived without a cane but has one to use and is open to this. TREATMENT: Therapeutic Exercise: 1: Repeated sit to stand from chair without UEs 2x10 2: seated B heel and toe raises 2x20 3: seated B alt hip flexion 2x10 4: seated B alt knee extension 2x10 Skilled Intervention: Patient was educated in proper exercise technique and purpose for exercises. Skilled judgment was provided in selection of appropriate interventions. Correct performance of therapeutic exercises was facilitated with verbal and visual cuing. Patient education as noted. Neuromuscular Re-Education: 1: Pt was reminded that she should not be attempting balance tests and exercises at home, just seated therex. 2: NBOS eyes open 2x30 seconds 3: NBOS eyes closed 2x30 seconds 4: B tandem stance 2x30 seconds each Skilled Intervention: Skilled judgment used to assess appropriate program for balance and coordination activity. Ensured patient safety with use of gait belt and intermittent assist. Gait Trainin: Cane was adjusted to proper height and she was educated on the rationale for this. She will either bring her new cane or her borrowed cane next visit for practice. She was educated on the proper use of cane in R hand to stay with L LE. Proper used explained, demonstrated and verbal cues provided as she practiced. Mirror was used for visual feedback. Skilled Intervention: Facilitated proper gait cycle with the use of verbal, visual, and tactile cues for correction of gait deviations identified in the objective section above. Gait belt utilized during session for safety. Billing Therapeutic Exercise Treatment Minutes: 15 Neuromuscular Re-Education Treatment Minutes: 10 Gait Training Treatment Minutes: 20 Total Treatment Time Minutes (timed/untimed): 45 Anselmo Prather PT documented in this encounter [facility] 09-11-2022 Miscellaneous Notes Addended by: JOSE CACERES on: 09/11/2022 12:53 PM Modules accepted: Orders [facility] Per patient, [facility] stated what they received was blank. documented in this encounter [facility] 09-05-2022 History of Present illness Narrative CT scheduled. Follow up request to operating room scheduler. documented in this encounter [facility] 08-21-2022 Miscellaneous Notes Spoke with pt and information listed below given. Pt verbalizes understanding. Samantha Guerrero LPN Left message to call office. 08/20/2022 4:29 PM ----- Message from Tala Negron MD sent at 08/20/2022 3:32 PM EST ----- Xray of shoulder and upper arm are negative for fracture or dislocation. Would recommend ice, OTC analgesics for pain, and follow up with PT for fall risk. documented in this encounter [facility] 08-20-2022 Note [facility] 08-20-2022 History of Present illness Narrative [facility] REHABILITATION AND SPORTS THERAPY DME ISSUE NOTE Patient identified by name and date: Yes Subjective: Queenie Adan is a 77 year old female seen today for fitting and bulk picker of custom foot orthotics. Equipment Owned: old ineffective orthotics DME Delivery: Pt was educated on wear schedule and care of custom foot orthotics. Pt was educated on the option of having orthotics refurbished as needed in the future as long as shell is performing it's intended function well. Pt was educated on approximate cost of refurbishing orthotics and an approximate time frame when this might be necessary. Pt was urged to follow the wear schedule and to call with any questions or concerns. Pt was instructed to start with wearing orthotics one hour the first day and then to add one hour of wear time per day until territory account representative wear is achieved. Pt was educated on how to remove insoles from shoes and then place orthotics in shoes. The fit of orthotics was assessed with pt standing, with and without shoes. The comfort of orthotics was assessed with pt standing and walking with orthotics in shoes. Pt denied any rubbing or pinching and felt that fit of custom orthotics was correct. Contact information for this therapist was provided to patient. Custom biomechanical foot orthotics with serial number: #[id number] were issued to patient and proof of receipt form signed by pt and therapist. All specifications for custom foot orthotics can be found in orthotic evaluation visit note. Planned Interventions: Follow up as needed for brace fitting/issues. Billing:[facility]: Orthotics Management and Training ([id number]): 1:1 time: 20 minutes (1 unit: 8-22 mins) Equipment: [id number] x2 pair of custom foot orthotics Total time: 20 minutes Anselmo Prather PT documented in this encounter [facility] 08-19-2022 Note [facility] 08-19-2022 Note [facility] 08-19-2022 History of Present illness Narrative Chief Complaint Patient presents with: F/U 3 Month HPI Queenie Adan is a 77 year old female who presents here today for Above Complaints.. Patient notes CT chest on 07/24 showed resolution of her lung nodule in her RLL. Stable 0.6 cm nodule in LLL. Following up with oncology for history of left breast cancer with mets to skin and these lung nodules. Reviewed labs which did show increase in her Breast CA 15-3 and CA27.29. No changes to regimen at OV on 08/15. Recommending repeat imaging in October. BP well controlled on current regimen. A fib: rate controlled on current regimen without side effects. Gets occasional palpitations at night without tachycardia. No spontaneous bleeding or bruising with her Eliquis. Notes that she did have a fall in her bathroom about 10 days ago. States that she was trying to get into her slipper when she lost her balance. Landed on her left side and hit her shoulder on the way down. Denies head injury or LOC. Had bruise in the area which is healing well. Does not feel as steady on her feet recently. Does not have cane or walker at home. Goes to the gym for 30 minutes twice weekly and 90 minutes twice weekly. CAMRYN: using CPAP nightly which is working well to control her symptoms. Past medical history, appointments, medications, allergies reviewed. Previous Medical History PAST MEDICAL HISTORY Diagnosis Date A-fib (HCC) Dr. Cody Breast cancer ([facility]) 1998 lobular, left side. Stage I, ER+/IN+/HER2-. Seeing Dr. Friend Chronic diastolic CHF (congestive heart failure) (HCC) Coronary artery disease mild Elevated alkaline phosphatase level Falls frequently GERD (gastroesophageal reflux disease) HTN (hypertension) Hyperparathyroidism (HCC) IPMN (intraductal papillary mucinous neoplasm) 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, estrogen receptor positive (HCC) 01/09/2017 Osteoarthritis, knee Pancreatic cyst 11/2019 Pancreatitis PONV (postoperative nausea and vomiting) Prediabetes Recurrent seroma of breast S/P ablation of atrial fibrillation 2009 Sleep apnea on CPAP Vaginal dryness Varicose veins of both lower extremities Previous Surgical History PAST SURGICAL HISTORY Procedure Laterality Date ABLATION CATHETER 09/2014 venous ablation left GSV AFIB ABLATION/PULM VEIN ISOLATION 2010 APPENDECTOMY 1957 BREAST BIOPSY 1973 benign BREAST LUMPECTOMY HX Left 1998 left breast: 08/02 nodes; s/p Adj Chemo & Adj Radt CARDIAC CATHETERIZATION HX 07/2014 ostail LAD 35% COLONOSCOPY 06/2016 5 mm polyp. repeat in 5 years EXC CYST/ABERRANT BREAST TISSUE OPEN 1/ LESION 03/21/2020 EXCISION MALIGNANT LESIONS,TRUNK,ARMS,LEGS Left 03/11/2017 Re-Excision of Left Mast site: negative for cancer MASTECTOMY, SIMPLE, COMPLETE Left 02/12/2017 Left Compl Mast: pT1cNx, ER/IN+, HER2 Neg IDC w/Radial Margin MIDLINE INSERTION/CONSULT 08/17/2020 NIPPLE EXPLORATION Right 2013 ductal excision Right breast OTHER 2007 left knee ligament replacement OTHER 07/2020 Pancreatic surgery PAST SURGICAL HISTORY OF 11/2019 pancreatic cyst fluid removal REMOVE CATARACT, INSERT LENS,EX Bilateral Family History FAMILY HISTORY Problem Relation Age of Onset Breast Cancer Mother Heart Mother 95 Thyroid Mother Coronary Artery Disease Father 75 Prostate Cancer Brother pancreatic Prostate Cancer Brother Hypertension Brother Cancer Brother Mantle Cell Lymphnomas - dx last month Hypertension Brother Hypertension Brother Thyroid Brother Hypertension Brother Hypertension Brother Breast Cancer Maternal Aunt lived til 103 Patient Allergies 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 [place] [Hydrocodone-* Vomiting Penicillins Other: See Comments blisters Current Medications Current Outpatient Medications on File Prior to Visit Medication Sig potassium chloride ER (KLOR-CON M20) 20 mEq tablet TAKE 2 TABLETS BY MOUTH EVERY 48 HOURS AND 4 TABLETS BY MOUTH EVERY 48 HOURS (Patient taking differently: TAKE 2 TABLETS BY MOUTH EVERY DAY AND 4 TABLETS BY MOUTH EVERY 48 HOURS) Fluorouracil (EFUDEX) 5 % cream Apply to biopsy site (include entire nasal tip) twice daily for 6 weeks metoprolol succinate ER (TOPROL XL) 25 mg 24 hr tablet Take 1 tablet by mouth daily at bedtime. CPAP/BIPAP/OTHER Type .CPAPSettings into a note to see current settings/supplies/DME information. exemestane (AROMASIN) 25 mg tablet Take 1 tablet by mouth once daily. TAKE AFTER A MEAL. atorvastatin (LIPITOR) 20 mg tablet Take 1 tablet by mouth daily at bedtime. For cholesterol. amLODIPine (NORVASC) 5 mg tablet Take 1 tablet by mouth once daily. metFORMIN (GLUCOPHAGE) 500 mg tablet Take 1 tablet by mouth twice daily with meals. apixaban (ELIQUIS) 5 mg tab(s) Take 1 tablet by mouth twice daily. (restart 12/09/19) furosemide (LASIX) 40 mg tablet Take 1 tablet by mouth every 48 hours AND 2 tablets every 48 hours. Alternate 40 mg daily with 80 mg daily. (Patient taking differently: Take 1 tablet daily AND 2 tablets every other day. Alternate 40 mg daily with 80 mg daily.) CPAP/BIPAP/OTHER Type .CPAPSettings into a note to see current settings/supplies/DME information. ramipril (ALTACE) 10 mg capsule Take 1 capsule by mouth twice daily. zoledronic acid (RECLAST) 5 mg/100 mL pgbk PREMIX piggyback Inject 100 mL intravenously as directed. CPAP/BIPAP/OTHER Type .CPAPSettings into a note to see current settings/supplies/DME information. CPAP/BIPAP/OTHER Type .CPAPSettings into a note to see current settings/supplies/DME information. acetaminophen (TYLENOL) 500 mg tablet Take 1,000 mg by mouth as needed. palbociclib (IBRANCE) 125 mg tablet Take 1 tablet (125mg) by mouth once daily for 21 days on then 7 days off. Take with or without food. biotin 5,000 mcg subl Dissolve 1 tablet under the tongue once daily. Famotidine-Ca Carb-Mag Hydrox (PEPCID COMPLETE) 10-800-165 mg chew Take 1 tablet by mouth once daily as needed. npmes-ob-7-zuh-vny-hxshbvw-ast [phone] mg cap Take 1 tablet by mouth. cholecalciferol, vitamin D3, (VITAMIN D3 ORAL) Take 1,000 Units by mouth twice daily. vit A/vit C/vit E/zinc/copper (PRESERVISION AREDS ORAL) Take 1 tablet by mouth twice daily. CPAP Pressure changed in my office to Autopap 9.5-15 cm H2O, Heat Humidity & heated Tubing (JIMBO) suitable mask, [employer] supplies, opt Chinstrap, G47.33. (Patient taking differently: Pressure changed in my office to Autopap 5-8 cm H2O, Heat Humidity & heated Tubing (JIMBO) suitable mask, [employer] supplies, opt Chinstrap, G47.33.) gluc benitez/chondro benitez A/vit C/Mn (GLUCOSAMINE-CHONDROITIN COMPLX ORAL) Take 1 tablet by mouth once daily. Coenzyme Q10 300 mg cap Take 300 mg by mouth once daily. melatonin 3 mg Take 5 mg by mouth daily at bedtime. Current Facility-Administered Medications on File Prior to Visit Medication perflutren lipid microspheres 1.3 mL in NaCl (PF) 0.9% 10 mL injection (DEFINITY) sodium chloride 0.9 % (flush) 10 mL (BD POSIFLUSH) Social History Social History Tobacco Use Smoking status: Never Smokeless tobacco: Never Vaping Use Vaping Use: Never used Substance Use Topics Alcohol use: Yes Comment: rare, maybe one drink a month Drug use: No Review of Symptoms REVIEW OF SYSTEMS GENERAL: No weight loss, malaise or fevers RESPIRATORY: Negative for cough, hemoptysis, wheezing, COPD, dyspnea or shortness of breath CARDIOVASCULAR: Negative for chest pain, leg swelling, hypertension, CHF or palpitations GI: No nausea, vomiting, or diarrhea SKIN: See HPI EXAM: BP 118/74 Pulse 76 Resp 16 Wt 64.5 kg (142 lb 3.2 oz) SpO2 97% BMI 25.59 kg/m General Appearance: Well appearing, alert, in no acute distress, well-hydrated, well nourished.. Skin: faint half dollar sized bruise over left deltoid without hematoma. Lungs: Lungs clear to auscultation. No wheezing, rhonchi, rales.. Heart: irregularly irregular rhythm without murmur, gallop, or rubs. No tachycardia. Abdomen: Normal abdominal exam, Abdomen soft, non-tender. Bowel sounds normal. No masses, organomegaly. Shoulder: Location: Left. Redness: No. Warmth: No. Tenderness to palpation: Yes, deltoid and proximal humerus Swelling: No. Range of motion: WNL. Empty can test: Positive Nathan: positive. Health Maintenance List SHINGRIX VACCINE(1 of 2) Never done ADVANCE DIRECTIVE DISCUSSION Never done DEPRESSION ASSESSMENT due on 06/22/2022 LDL CHOLESTEROL due on 11/15/2022 ANNUAL PCP TEAM CHRONIC DISEASE VISIT due on 05/21/2023 BP CONTROLLED (<130/80) due on 08/15/2023 DIABETES SCREEN due on 08/15/2025 DTAP,TDAP,TD(2 - Td or Tdap) due on 08/05/2028 BONE DENSITY Completed INFLUENZA Completed HEPATITIS C SCREENING Completed COVID-19 VACCINE Completed PNEUMOCOCCAL: 65+ Completed Data reviewed Component Latest Ref Rng & Units 08/15/2022 WBC 3.70 - 11.00 k/uL 2.81 (L) RBC 3.90 - 5.20 m/uL 3.22 (L) Hemoglobin 11.5 - 15.5 g/dL 12.1 Hematocrit 36.0 - 46.0 % 34.7 (L) MCV 80.0 - 100.0 fL 107.8 (H) MCH 26.0 - 34.0 pg 37.6 (H) MCHC 30.5 - 36.0 g/dL 34.9 RDW-CV 11.5 - 15.0 % 16.2 (H) Platelet Count 150 - 400 k/uL 210 MPV 9.0 - 12.7 fL 9.6 Neut% % 49.8 Abs Neut (ANC) 1.45 - 7.50 k/uL 1.40 (L) Lymph% % 31.7 Abs Lymph 1.00 - 4.00 k/uL 0.89 (L) Nicholas% % 9.6 Abs Nicholas <0.87 k/uL 0.27 Eosin% % 3.2 Abs Eosin <0.46 k/uL 0.09 Baso% % 5.0 Abs Baso <0.11 k/uL 0.14 (H) Immature Gran % % 0.7 IMMATURE GRANS (ABS) <0.10 k/uL <0.03 NRBC /100 WBC 0.0 Absolute nRBC <0.01 k/uL <0.01 DTYPE Auto Protein, Total 6.3 - 8.0 g/dL 7.4 Albumin 3.9 - 4.9 g/dL 4.7 Calcium 8.5 - 10.2 mg/dL 9.4 Bilirubin, Total 0.2 - 1.3 mg/dL 0.7 Alkaline Phosphatase 34 - 123 U/L 153 (H) AST 13 - 35 U/L 18 ALT 7 - 38 U/L 11 Glucose 74 - 99 mg/dL 115 (H) BUN 7 - 21 mg/dL 30 (H) Creatinine 0.58 - 0.96 mg/dL 1.04 (H) Sodium 136 - 144 mmol/L 140 Potassium 3.7 - 5.1 mmol/L 3.9 Chloride 97 - 105 mmol/L 100 CO2 22 - 30 mmol/L 27 Anion Gap 9 - 18 mmol/L 13 eGFR >=60 mL/min/1.73m 55 (L) Breast CA 15-3 <26.0 U/mL 46.3 (H) CA27.29 <38.6 U/mL 54.7 (H) Component Latest Ref Rng & Units 05/16/2022 08/15/2022 Breast CA 15-3 <26.0 U/mL 43.2 (H) 46.3 (H) CA27.29 <38.6 U/mL 38.9 (H) 54.7 (H) ASSESSMENT/PLAN: 1. Fall in home, initial encounter - ICD9: E888.9, E849.0, ICD10: W19.XXXA, Y92.009 (primary diagnosis) Left shoulder/humerus pain after fall at home. Obtain imaging to rule out fracture/dislocation. Discussed ice, rest, tylenol, and referral to PT. Red flags for re-assessment reviewed with patient in detail. - XR SHOULDER GENERAL 3V OR MORE AP/TRUE AP/OTHER LEFT - XR HUMERUS 2V AP/LAT LEFT - CANE, ADJUSTABLE - CONSULT TO PHYSICAL THERAPY 2. Left upper arm pain - ICD9: 729.5, ICD10: M79.622 - XR SHOULDER GENERAL 3V OR MORE AP/TRUE AP/OTHER LEFT - XR HUMERUS 2V AP/LAT LEFT - CANE, ADJUSTABLE - CONSULT TO PHYSICAL THERAPY 3. Unsteady gait when walking - ICD9: 781.2, ICD10: R26.81 Given rx for cane and will refer to PT for strengthening and stability to reduce risk for falls. - CANE, ADJUSTABLE - CONSULT TO PHYSICAL THERAPY 4. Lung nodule seen on imaging study - ICD9: 793.11, ICD10: R91.1 F/u with repeat imaging as ordered by oncology. 5. Stage 1 breast cancer, ER+, left (HCC) - ICD9: 174.9, V86.0, ICD10: C50.912, Z17.0 Screening mammogram in February negative. F/u recommendations on increasing cancer markers. Keep scheduled appointment with oncology. 6. Essential hypertension - ICD9: 401.9, ICD10: I10 - good control - Continue current medication(s) - Encouraged dietary sodium restriction/DASH diet - Recommended regular aerobic exercise. - Reviewed risks of HTN and principles of treatment - Goal of BP <140/90 7. CAMRYN (obstructive sleep apnea) - ICD9: 327.23, ICD10: G47.33 Doing well on current CPAP settings nightly. 8. Coronary artery disease involving [place] coronary artery of [place] heart with angina pectoris (HCC) - ICD9: 414.01, 413.9, ICD10: I25.119 Asymptomatic on current regimen. F/u with cardiology recommendations. 9. Atrial fibrillation, chronic (HCC) - ICD9: 427.31, ICD10: I48.20 Rate controlled. Continue anticoagulation for now. Will need to reconsider if balance does not improve. F/u with cardiology recommendations. Tala Negron MD documented in this encounter [facility] 08-18-2022 Miscellaneous Notes SW called and spoke to pt this morning. Pt reports she needs assistance sending her new prescription insurance information to [facility]. Pt reports she will stop into SW office today for SW to copy and send. MICHAEL Shin-Serina Patient stopped at the [employer] desk asking for Terry to assist with getting her insurance information to [employer]. Please contact patient. Kizzy June documented in this encounter [facility] 08-15-2022 Note [facility] 08-15-2022 History of Present illness Narrative Chief Complaint Patient presents with: Established Patient HPI: Queenie Adan is a 77 year old female who presents here today for follow up breast cancer/eval for next cycle of ibrance. Per Dr. Thao's previous note: H/o breast cancer, atrial fibrillation, coronary artery disease, hypertension, diastolic CHF, obstructive sleep apnea, GERD and pancreatic cyst. 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 2 of 12 nodes were positive. She underwent lumpectomy followed by adjuvant chemotherapy with AC followed by T. She then received adjuvant radiation followed by tamoxifen for 5 years. She was then diagnosed with a new primary breast cancer in the ipsilateral breast. She underwent mastectomy for what proved to be a [id number] ER+/IN+/HER2- breast cancer. The tumor was 1.6 cm. It was grade 3. Lymph nodes were not obtained secondary to her previous surgery. There was a positive radial margin and she underwent repeat excision of the margin with the pathology demonstrating fat necrosis but no malignant tissue. She was on anastrozole from May 2017 through January 2018. 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 Has h/o hypercalcemia dating to at least 07/24/2017. Found to have dilated pancreatic duct on US 08/2018 done for increased alk phos. CT Pancreas 09/10/2018: Pancreatic ductal dilatation with abrupt transition of duct caliber consistent with pancreatic ductal stricture. Different considerations includes benign and malignant stricture. Recommend further characterization with contrast-enhanced MR of the pancreas. MRI could also characterize the subcentimeter pancreatic head density noted in results. Right hepatic lobe low-attenuation density consistent with cysts noted on ultrasound. Subcentimeter LEFT hepatic lobe density most likely benign. Cardiomegaly. MRI Pancreas 09/14/2018: Significant dilation of the main pancreatic duct measuring up to 1.5 cm with associated multiple dilated sidebranches. Abrupt cut off within the neck and normal caliber of the main duct within the head. Benign or malignant stricturing would be the primary consideration. Endoscopic workup recommended. Mild central intrahepatic and extrahepatic biliary dilation. No choledocholithiasis. No adenopathy. EGD/EUS 10/12/2018: 20 mm cystic lesion was seen in the pancreatic body non-communicating with main duct. Fine needle aspiration for fluid performed. Pathology--no formal pathology or cytology, but fluid CEA normal but amylase significantly elevated. Repeat EGD/EUS 12/01/2019: Cyst 25 x 14 mm. Pathology: Very limited sample. Negative for malignant cells. MRI Pancreas 01/03/2020: Marked main pancreatic ductal dilation up to 1.7 cm in the body/tail with associated atrophy, mildly increased since 09/14/2018, with abrupt caliber change in the neck without associated mass. Multiple dilated side branches orcommunicating cysts are also unchanged or mildly increased. Differential considerations include a segmental main duct IPMN or stricture (i.e. from a prior episode of pancreatitis). She was advised to began exemestane in January 2019, but did not. Component Latest Ref Rng & Units 02/02/2018 08/26/2018 12/04/2019 12/05/2019 12/09/2019 12/09/2019 12/13/2019 12/30/2019 9:28 AM 9:28 AM Protein, Total 6.3 - 8.0 g/dL 7.1 7.5 6.1 (L) 6.0 (L) 7.2 7.1 7.4 Albumin 3.9 - 4.9 g/dL 4.7 4.6 3.6 (L) 3.5 (L) 4.1 4.2 4.3 Calcium 8.5 - 10.2 mg/dL 10.6 (H) 10.9 (H) 9.7 9.5 10.5 (H) 10.7 (H) 10.6 (H) Bilirubin, Total 0.2 - 1.3 mg/dL 0.9 0.9 1.3 1.4 (H) 0.7 0.7 0.6 Alkaline Phosphatase 34 - 123 U/L 127 (H) 146 (H) 159 (H) 187 (H) 215 (H) 217 (H) 203 (H) AST 13 - 35 U/L 25 24 15 16 26 25 39 (H) Glucose 74 - 99 mg/dL 83 102 (H) 111 (H) 86 89 94 103 (H) BUN 7 - 21 mg/dL 16 19 10 8 11 11 18 Creatinine 0.58 - 0.96 mg/dL 0.76 0.79 0.48 (L) 0.53 (L) 0.69 0.67 0.70 Sodium 136 - 144 mmol/L 139 142 140 141 140 141 140 Potassium 3.7 - 5.1 mmol/L 4.2 3.9 3.6 (L) 3.2 (L) 4.1 4.3 4.1 Chloride 97 - 105 mmol/L 99 103 103 102 100 100 100 CO2 22 - 30 mmol/L 23 28 24 26 30 29 26 Anion Gap 9 - 18 mmol/L 17 11 13 13 10 12 14 ALT 7 - 38 U/L 22 20 23 26 23 23 38 eGFR- >60 >60 >60 >60 >60 >60 >60 eGFR-All Other Races . >60 >60 >60 >60 >60 >60 >60 PTH, Intact 15 - 65 pg/mL 58 PTH Related Peptide 0.0 - 3.4 pmol/L 4.3 (H) CA19-9 <36 U/mL 18 Whole-body bone scan on 12/22/2019 demonstrated no suspicious area of radiotracer uptake suggesting metastatic disease to the bones. PET 01/24/2020: NECK: No FDG avid neoplastic process. No mass, adenopathy, or fluid collection. CHEST: Status post left mastectomy. Small non hypermetabolic fluid attenuation density in the left anterior chest wall/breast in the subcutaneous tissues, abutting the skin. Differential considerations include possible small focus of recurrence, infected/inflamed sebaceous cyst. Mammogram/ultrasound of the left breast may be of help for further evaluation. ABDOMEN/PELVIS: No FDG avid neoplastic process. No mass, adenopathy, or fluid collection. EXTREMITIES/SKELETON: No FDG avid osseous process. No destructive/traumatic bony abnormality. Previous therapy for breast cancer: 1) AC followed by T. 2) Anastrozole. 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 Pathology: Left mastectomy skin, incision site marked #1, excision (A) - Stromal scar with foreign body giant cell reaction. 2. Left mastectomy skin, area marked #2, excisional biopsy (B) - Invasive ductal carcinoma involving dermis and subcutaneous tissue (please see comment). COMMENT 2. The invasive carcinoma is estimated to involve an area measuring 1.2 cm and is present at the periphery of the tissue edges. The invasive carcinoma is a Westfall Grade 3; definitive dermal angiolymphatic space invasion is not identified. Immunohistochemical stains for estrogen and progesterone receptors, as well as HER2 will be performed and the results reported separately. Estrogen Receptor (ER) Positive (99%) Average stain intensity: Strong Status of internal controls: Internal control cells absent External controls: Appropriately reactive Progesterone Receptor (PgR) Positive (50%) Average stain intensity: Moderate Status of internal controls: Internal control cells absent External controls: Appropriately reactive HER2 (ERBB2) IMMUNOHISTOCHEMISTRY ASSAY Interpretation: NEGATIVE for HER2 (ERBB2) Expression Score: 1+ Subsequently underwent parathyroid exploration where she was found to have 4 gland hyperplasia with enlarged abnormal appearing glands. The right lower gland was smallest and appeared most normal so that was left as a remnant. The other 3 glands were excised. Pathology: A. Parathyroid gland, right upper, parathyroidectomy - Mildly hypercellular parathyroid. B. Parathyroid gland, left upper, parathyroidectomy - Focally hypercellular parathyroid. C. Parathyroid gland, right lower, parathyroidectomy - Normocellular parathyroid. Presents for ongoing oncologic management. Underwent reexcision on 03/21. Pathology: Left breast, ductal mass, excision - Invasive ductal carcinoma, clinically recurrent, Marilyn grade 2, measuring 8 mm in greatest dimension (please see comment and synoptic report). - Large organizing hematoma and stromal scar. - Biopsy site reparative changes. EDK/edk 03/27/2020 COMMENT The prior excisional biopsy ([id number]) contained a 12 mm focus of invasive ductal carcinoma. As such, the final pT assignment is pT1c. SYNOPTIC REPORT OF [facility] DUCTAL MASS, LEFT BREAST: BREAST INVASIVE CARCINOMA WORKSHEET Part: A Procedure: Excision (less than total mastectomy) Specimen Laterality: Left Tumor size: Size of largest invasive carcinoma: Greatest dimension of largest focus of invasion >1 mm: 8 mm Tumor Focality: Single focus of invasive carcinoma Histologic Type of Invasive Carcinoma: Invasive carcinoma of no special type (ductal, not otherwise specified) Histologic Grade: Glandular (Acinar) / Tubular Differentiation: Score 3 Nuclear Pleomorphism: Score 2 Mitotic Rate: Score 1 Overall Grade: Grade II Ductal Carcinoma In Situ: Not identified Tumor Extension: Skin: Invasive carcinoma directly invades into the dermis or epidermis without skin ulceration (this does not change the T classificationof invasive carcinomas) Nipple: Not applicable, no nipple is present Skeletal muscle: Free of carcinoma Invasive Carcinoma Margins: Margins uninvolved by invasive carcinoma Distance from closest margin: 9 mm Closest margin: Deep DCIS Margins: Not applicable (no DCIS in specimen) Lymph Nodes: No lymph nodes submitted or found Treatment Effect: No known presurgical therapy Lymph-Vascular Invasion: Not identified Pathologic Stage Classification (pTNM,AJCC 8th ed) TNM Descriptor(s): r (recurrent) Primary Tumor (Invasive Carcinoma) (pT): pT1c Regional Lymph Nodes (pN): Modifier: Not applicable Category (pN): pNX Distant metastasis: Distant Metastasis (pM) Not applicable/Not confirmed pathologically in this case Estrogen & progesterone receptors: Previously performed and reported as follows: Estrogen receptor: Positive (99%, strong) Progesterone receptor: Positive (50%, moderate) Specimen number #: [id number] (HER2) ERBB2 Status: Previously performed and reported as follows: HER2:Negative (1+) Previous therapy for metastatic breast cancer: 1) RT to chest wall completed 06/12/2020. Current therapy for metastatic breast cancer: 1) Exemestane. Began 2019 2) Palbociclib. 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 Vikram Gomez. Discharged on 08/10/20. Pt. went to ED on 08/15/20 for chest pain, +ST elevation, once transported to [facility] an immediate catherization was done-no significant coronary artery stenosis-no occlusion. Admitted for STEMI vs. pancreatitis on 08/15/20-08/21/20. Bronch negative for malignant cells on 12/26/20. Last day of this cycle was Thursday. Pt. plans to start next cycle next . Appetite: Fair. Wt. stable Energy level: Fair-Good Exercises daily. Denies fevers or recent illness. Resp:denies cough or sob, occ. walker, uses CPAP-followed by PULM Cardiac:denies chest pain/occ. palpitations/h/o A. fib-followed by cardiology GI:denies abd pain, occ. reflux, denies n/v, moving bowels regularly :denies dysuria/hematuria Extrem:denies pain Endo:denies hot flashes Neuro:denies symptoms of neuropathy Skin:denies rashes/lesions Heme:denies bleeding-on eliquis The ROS is otherwise negative. Past medical history, appointments, medications, allergies reviewed. No changes. EXAM: BP 120/73 Pulse 61 Temp 36.9 C (98.5 F) Ht 158.8 cm (5' 2.5 ) Wt 64.4 kg (142 lb) SpO2 97% BMI 25.56 kg/m APPEARANCE Well appearing, alert, in no acute distress, well-hydrated, well nourished. HEART RRR with normal S1 and S2, no murmurs LUNG clear to auscultation LYMPH NODES No cervical lymphadenopathy, No supraclavicular lymphadenopathy, and No axillary lymphadenopathy. ABDOMEN bowel sounds normoactive, soft, non-tender EXTREMITIES No edema NEURO Awake, alert and oriented x 3, Normal gait, and No involuntary motions. SKIN Skin color, texture, turgor normal, no suspicious rashes or lesions LABS: Component Latest Ref Rng & Units 02/28/2022 05/16/2022 08/15/2022 WBC 3.70 - 11.00 k/uL 3.35 (L) 3.22 (L) 2.81 (L) RBC 3.90 - 5.20 m/uL 3.28 (L) 3.13 (L) 3.22 (L) Hemoglobin 11.5 - 15.5 g/dL 12.3 11.6 12.1 Hematocrit 36.0 - 46.0 % 34.9 (L) 34.0 (L) 34.7 (L) MCV 80.0 - 100.0 fL 106.4 (H) 108.6 (H) 107.8 (H) MCH 26.0 - 34.0 pg 37.5 (H) 37.1 (H) 37.6 (H) MCHC 30.5 - 36.0 g/dL 35.2 34.1 34.9 RDW-CV 11.5 - 15.0 % 16.2 (H) 15.9 (H) 16.2 (H) Platelet Count 150 - 400 k/uL 168 310 210 MPV 9.0 - 12.7 fL 8.9 (L) 8.8 (L) 9.6 NRBC /100 WBC 0.0 0.0 0.0 Absolute nRBC <0.01 k/uL <0.01 <0.01 <0.01 Neut% % 38.7 39.0 49.8 Abs Neut (ANC) 1.45 - 7.50 k/uL 1.30 (L) 1.26 (L) 1.40 (L) Lymph% % 47.2 44.0 31.7 Abs Lymph 1.00 - 4.00 k/uL 1.58 1.42 0.89 (L) Nicholas% % 7.8 7.0 9.6 Abs Nicholas <0.87 k/uL 0.26 0.23 0.27 Eosin% % 2.7 3.0 3.2 Abs Eosin <0.46 k/uL 0.09 0.10 0.09 Baso% % 3.3 7.0 5.0 Abs Baso <0.11 k/uL 0.11 (H) 0.23 (H) 0.14 (H) Platelet Estimate Adequate Red Cell Morph Reviewed: see results of individual morphologies Anisocytosis Present Ovalocytes Few RBC Fragments None Seen Few (A) Target Cells Few DTYPE Auto Manual Auto Immature Gran % % 0.3 0.7 IMMATURE GRANS (ABS) <0.10 k/uL <0.03 <0.03 CMP/Tumor marker: Pending ASSESSMENT/PLAN: 1. 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, estrogen receptor positive (HCC) - ICD9: 174.5, V86.0, ICD10: C50.512, Z17.0 (primary diagnosis) 2. 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 Lung nodules - ICD9: 793.19, ICD10: R91.8 - Overall tolerating ibrance/aromasin well. - Reviewed labs/CT chest with pt. - CMP/tumor markers pending. - Continue current medications. - Proceed with next cycle of ibrance. - Follow up with PULM/DERM as scheduled. - CT chest/abd/pelvis/bone scan in October-prior to next OV. - Follow up November 07 @ 10a.m. with CBC/CMP/CA15-3/CA27.29 - Pt. aware to call office with any questions/concerns. The patient indicates understanding of these issues and agrees with the plan. All documentation from previous visit of 05/23/22-Dr. Thao/myself was copied and pasted, documentation has been reviewed and edited as necessary for today's visit. Nimisha Aleman APRN.[employer] 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 documented in this encounter [facility] 08-08-2022 Miscellaneous Notes Spoke with patient: Alternates between 2 tablets and 4 tablets every other day. Patient requesting 90 day supply. Updated patient's [facility] pharmacy to clarify dosage, requesting new script is sent in for 90 day supply. Lisa Abernathy RN August 08, 2022 4:52 PM documented in this encounter [facility] 08-08-2022 Miscellaneous Notes Call from patient requesting refill. Requested Prescriptions Pending Prescriptions Disp Refills potassium chloride ER (K-DUR, KLOR-CON) 20 mEq tablet 150 tablet 3 Sig: TAKE 2 TABLETS BY MOUTH EVERY 48 HOURS AND 4 TABLETS BY MOUTH EVERY 48 HOURS Patient last seen 04/02/22 Jose Duenas documented in this encounter [facility] 08-07-2022 Miscellaneous Notes Patient has been identified by name and date of : Yes, Provider Dr. Negron Date 08/07/22 Time 2:37 pm Pharmacy phones for refill(s): Requested Prescriptions Pending Prescriptions Disp Refills metoprolol succinate ER (TOPROL XL) 25 mg 24 hr tablet 90 tablet 3 Sig: Take 1 tablet by mouth daily at bedtime. Date of last office visit in primary care: 05/21/22 next apt 08/19/22 Last 2 Encounter Wt Readings: Date: Wt: 05/23/2022 64.2 kg (141 lb 8 oz) 05/21/2022 65.5 kg (144 lb 6.4 oz) Previous labs/tests for medication: Blood Pressure: BUN (mg/dL) Date Value 05/16/2022 36 07/12/2021 22 Sodium (mmol/L) Date Value 05/16/2022 136 07/12/2021 139 Last 1 Encounter BP Readings: Date: BP: 08/07/2022 123/55 Thank you. Samantha Guerrero LPN documented in this encounter [facility] 08-07-2022 Miscellaneous Notes LYSSA approved. Coverage dates: 06/22/2022 to 11/05/2022 ([place]: [id number]) PA SUBMITTED documented in this encounter [facility] 08-07-2022 Note [facility] 08-07-2022 Instructions Earnestine Howell RN - 08/07/2022 9:40 AM EST Efudex Information Sheet Apply the cream to the area designated by your provider with gloved hands if possible. If gloves are not available, be certain to wash hands thoroughly after application (as to not distribute the medication elsewhere accidently). The medication is a topical chemotherapy cream. It is designed to attack skin cancer cells and photo damaged (sun damaged) skin. Things to expect following application of Efudex: The area will become red, raw, and potentially scale or scab. This is the expected outcome with use. To alleviate some of the discomfort, you may apply Vaseline or aquaphor to the site 30 minutes after application of the Efudex. This will prevent the area from feeling tight and pulling at the tissue. This will also prevent scabbing to the area, and therefore, alleviate additional discomfort. Avoid sun exposure to the treated areas at all times. Exposure to the sun will cause increased redness, burning, and irritation to the site. Medication should be applied as directed by your provider. You may apply ice packs to the area to assist with any swelling that is the product of Efudex use. If you are not tolerating the medication, you may take a break from application for a few days and apply Vaseline/OTC Hydrocortisone to the site. Please resume the medication to complete the prescribed course. A follow up will be needed, generally 4 weeks following the last application of the cream. Side Effects: - Most patients will experience dryness, redness, and crusting at the application site. You may also have stinging, burning, and/or itching. These are all expected side effects that indicate the medication is working. - Rare side effects include headache, common cold, eye irritation, and sinus infections. - Other side effects may be possible. If you experience any of the side effects noted above, please contact our clinic. documented in this encounter [facility] 08-07-2022 History of Present illness Narrative DERMATOLOGY CONSULT FOR MOHS SERVICE DATE: 08/07/2022 PRIMARY CARE PHYSICIAN: Tala Negron MD REFERRING PROVIDER: Macrina Lerma MD [facility] [address] [place] [phone] Consultation requested for an opinion regarding the evaluation and treatment of skin cancer. My final impression and recommendations will be communicated back to the requesting physician by way of the shared medical record or letter via US mail. SUBJECTIVE CHIEF COMPLAINT: SCC HISTORY OF PRESENT ILLNESS BIOPSY INFORMATION: 1. 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 Cody Breast cancer ([facility]) 1998 lobular, left side. Stage I, ER+/IN+/HER2-. Seeing Dr. Friend Chronic diastolic CHF (congestive heart failure) ([facility]) Coronary artery disease mild Elevated alkaline phosphatase level Falls frequently GERD (gastroesophageal reflux disease) HTN (hypertension) Hyperparathyroidism ([facility]) IPMN (intraductal papillary mucinous neoplasm) 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, estrogen receptor positive ([facility]) 01/09/2017 Osteoarthritis, knee Pancreatic cyst 11/2019 Pancreatitis PONV (postoperative nausea and vomiting) Prediabetes Recurrent seroma of breast S/P ablation of atrial fibrillation 2010 Sleep apnea on CPAP Vaginal dryness Varicose veins of both lower extremities PAST SURGICAL HISTORY Procedure Laterality Date ABLATION CATHETER 09/2014 venous ablation left GSV AFIB ABLATION/PULM VEIN ISOLATION 2010 APPENDECTOMY 1957 BREAST BIOPSY 1973 benign BREAST LUMPECTOMY HX Left 1998 left breast: 08/02 nodes; s/p Adj Chemo & Adj Radt CARDIAC CATHETERIZATION HX 07/2014 ostail LAD 35% COLONOSCOPY 06/2016 5 mm polyp. repeat in 5 years EXC CYST/ABERRANT BREAST TISSUE OPEN 1/> LESION 03/21/2020 EXCISION MALIGNANT LESIONS,TRUNK,ARMS,LEGS Left 03/11/2017 Re-Excision of Left Mast site: negative for cancer MASTECTOMY, SIMPLE, COMPLETE Left 02/12/2017 Left Compl Mast: pT1cNx, ER/IN+, HER2 Neg IDC w/Radial Margin MIDLINE INSERTION/CONSULT 08/17/2020 NIPPLE EXPLORATION Right 2013 ductal excision Right breast OTHER 2007 left knee ligament replacement OTHER 07/2020 Pancreatic surgery PAST SURGICAL HISTORY OF 11/2019 pancreatic cyst fluid removal REMOVE CATARACT, INSERT LENS,EX Bilateral Social History Tobacco Use Smoking status: Never Smokeless tobacco: Never Vaping Use Vaping Use: Never used Substance Use Topics Alcohol use: Yes Comment: rare, maybe one drink a month Drug use: No FAMILY HISTORY Problem Relation Age of Onset Breast Cancer Mother Heart Mother 95 Thyroid Mother Coronary Artery Disease Father 75 Prostate Cancer Brother pancreatic Prostate Cancer Brother Hypertension Brother Cancer Brother Mantle Cell Lymphnomas - dx last month Hypertension Brother Hypertension Brother Thyroid Brother Hypertension Brother Hypertension Brother Breast Cancer Maternal Aunt lived til 103 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 [place] [Hydrocodone-* Vomiting Penicillins Other: See Comments blisters MEDICATIONS: CPAP/BIPAP/OTHER^Type .CPAPSettings into a note to see current settings/supplies/DME information.^Disp: 1 Each^Rfl: 0 exemestane (AROMASIN) 25 mg tablet^Take 1 tablet by mouth once daily. TAKE AFTER A MEAL.^Disp: 90 tablet^Rfl: 3 atorvastatin (LIPITOR) 20 mg tablet^Take 1 tablet by mouth daily at bedtime. For cholesterol.^Disp: 90 tablet^Rfl: 1 amLODIPine (NORVASC) 5 mg tablet^Take 1 tablet by mouth once daily.^Disp: 90 tablet^Rfl: 1 metFORMIN (GLUCOPHAGE) 500 mg tablet^Take 1 tablet by mouth twice daily with meals.^Disp: 180 tablet^Rfl: 1 apixaban (ELIQUIS) 5 mg tab(s)^Take 1 tablet by mouth twice daily. (restart 12/09/19)^Disp: 180 tablet^Rfl: 1 furosemide (LASIX) 40 mg tablet^Take 1 tablet by mouth every 48 hours AND 2 tablets every 48 hours. Alternate 40 mg daily with 80 mg daily.^Disp: 135 tablet^Rfl: 3 potassium chloride ER (K-DUR, KLOR-CON) 20 mEq tablet^TAKE 2 TABLETS BY MOUTH EVERY 48 HOURS AND 4 TABLETS BY MOUTH EVERY 48 HOURS^Disp: 150 tablet^Rfl: 3 CPAP/BIPAP/OTHER^Type .CPAPSettings into a note to see current settings/supplies/DME information.^Disp: 1 Each^Rfl: 0 ramipril (ALTACE) 10 mg capsule^Take 1 capsule by mouth twice daily.^Disp: 180 capsule^Rfl: 1 zoledronic acid (RECLAST) 5 mg/100 mL pgbk PREMIX piggyback^Inject 100 mL intravenously as directed.^Disp: 100 mL^Rfl: 0 CPAP/BIPAP/OTHER^Type .CPAPSettings into a note to see current settings/supplies/DME information.^Disp: 1 Each^Rfl: 0 metoprolol succinate ER (TOPROL XL) 25 mg 24 hr tablet^TAKE 1 TABLET BY MOUTH EVERYDAY AT BEDTIME^Disp: 90 tablet^Rfl: 3 CPAP/BIPAP/OTHER^Type .CPAPSettings into a note to see current settings/supplies/DME information.^Disp: 1 Each^Rfl: 0 acetaminophen (TYLENOL) 500 mg tablet^Take 1,000 mg by mouth as needed.^Disp: ^Rfl: palbociclib (IBRANCE) 125 mg tablet^Take 1 tablet (125mg) by mouth once daily for 21 days on then 7 days off. Take with or without food.^Disp: 21 tablet^Rfl: 5 biotin 5,000 mcg subl^Dissolve 1 tablet under the tongue once daily.^Disp: ^Rfl: Famotidine-Ca Carb-Mag Hydrox (PEPCID COMPLETE) 10-800-165 mg chew^Take 1 tablet by mouth once daily as needed.^Disp: ^Rfl: vtnij-uu-7-lgw-xsu-qbhotcr-ast [phone] mg cap^Take 1 tablet by mouth.^Disp: ^Rfl: cholecalciferol, vitamin D3, (VITAMIN D3 ORAL)^Take 1,000 Units by mouth twice daily. ^Disp: ^Rfl: vit A/vit C/vit E/zinc/copper (PRESERVISION AREDS ORAL)^Take 1 tablet by mouth twice daily.^Disp: ^Rfl: CPAP^Pressure changed in my office to Autopap 9.5-15 cm H2O, Heat Humidity & heated Tubing (JIMBO) suitable mask, [employer] supplies, opt Chinstrap, G47.33.^Disp: 1 Device^Rfl: 11 (Patient taking differently: Pressure changed in my office to Autopap 5-8 cm H2O, Heat Humidity & heated Tubing (JIMBO) suitable mask, [employer] supplies, opt Chinstrap, G47.33.) gluc benitez/chondro benitez A/vit C/Mn (GLUCOSAMINE-CHONDROITIN COMPLX ORAL)^Take 1 tablet by mouth once daily. ^Disp: ^Rfl: Coenzyme Q10 300 mg cap^Take 300 mg by mouth once daily.^Disp: ^Rfl: melatonin 3 mg^Take 5 mg by mouth daily at bedtime. ^Disp: ^Rfl: ANTICOAGULANTS: Eliquis PT INR Date Value Ref Range Status 08/18/2020 1.3 0.9 - 1.3 Final Comment: Vitamin K Antagonist (VKA) Therapeutic Range: INR 2 to 3 (Target INR of 2.5) Note: For patients treated with VKA drugs, such as warfarin, the [place] [employer] 2012 Guideline recommends a therapeutic INR range of 2 to 3 (target INR of 2.5). This recommendation includes high-risk patients with antiphospholipid syndrome with previous arterial or venous thromboembolism, current-generation mechanical or bioprosthetic aortic heart valve replacement. Note: Patients with mechanical aortic valve replacement and additional risk factors for thromboembolic events (atrial fibrillation, previous thromboembolism, LV dysfunction, hypercoagulable conditions) or an older generation mechanical AVR (i.e., ball in-Cage) or any mechanical MVR should have a INR therapeutic range of 2.5 to 3.5 (target INR of 3). Oktt GH, et al. Chest 2012, 141:7S-47S Johanny RA, et al. [facility] 2017, 70: 252-289 MEDICAL CONDITIONS: HX of Breast Cancer IMPLANTED DEVICES: Left wrist - screw TRANSPLANT PATIENT: No OBJECTIVE REVIEW OF SYSTEMS: Patient denies fatigue, fever, weight loss, shortness of breath and chest pain. ASSESSMENT PHYSICAL EXAM BP 123/55 Pulse 63 GENERAL: Well developed, well nourished. No acute distress. Pleasant and cooperative. No Fatigue or malaise. SKIN: - Exam of the nose notable for ill defined erythematous patch of the nasal tip PHOTOS: Photos taken with consent. PLAN IMPRESSION: The etiology, prognosis, and diagnosis of the skin cancer was discussed with the patient. Various treatment options were reviewed, including, but not limited to electrodessication and curretage, excision, radiation treatment, frozen sections and Mohs surgery. Risks, benefits and alternatives discussed with the patient, including but not limited to bleeding, infection, nerve damage, damage to underlying structures, wound dehiscence, scarring and recurrence. The patient was given opportunity to ask questions, consents to treatment, and agrees to proceed the following treatment plan. 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 Discussed observation vs. Efudex treatment. Patient decision is to proceed with Efudex treatment. - Apply efudex BID x 6 weeks Discussed medication dosage, usage, goals of therapy. Discussed potential adverse effects of above medications and what to do if patient experiences any of these, e.g. cessation of medication and contacting clinic. Answered all questions. Patient expressed understanding. - Follow up with Dr. Mccoy in 3 months Vikram Hernandez MD MSDO Fellow I have seen and examined Ms. Orquidea Adan. I have discussed the case and the management of this patient's care with the Fellow. I also have reviewed and agree with the assessment and plan as stated above and agree with all of its relevant components. There were no procedures performed during this patient's visit. Agnieszka Rust MD SIGNATURE: Agnieszka Rust MD PATIENT NAME: Queenie Adan DATE: August 04, 2022 TIME: 3:27 PM PAGER/CONTACT #: documented in this encounter [facility] 08-04-2022 Note HNO ID: [id number] Author: Magalie Clark Service: ? Author Type: ? Type: Progress Notes Filed: 08/04/2022 4:57 PM Note Text: Waiting for LEIF office note for follow up [facility] 08-04-2022 History of Present illness Narrative Waiting for LEIF office note for follow up documented in this encounter [facility] 07-29-2022 Miscellaneous Notes Addended by: KIZZY AYALA on: 07/29/2022 10:01 PM Modules accepted: Orders documented in this encounter [facility] 07-29-2022 Note [facility] 07-29-2022 History of Present illness Narrative [facility] INCIDENTAL LUNG NODULE PROGRAM ([facility] Follow-Up) Assessment / Plan 1. Lung nodule - ICD9: 793.11, ICD10: R91.1 (primary diagnosis) 2. History of breast cancer - ICD9: V10.3, ICD10: Z85.3 - The 9 mm RLL nodule that was new on CT chest 05/14/[address] chest 07/24/22. The latest scan did show scattered ground glass opacities bilaterally. But no nodules concerning for malignancy. - Patient states her oncology team typically has her complete routine CT chest every 3-6 months for surveillance. She would like us to continue to monitor her scans for any concerning nodules. - I will plan to see patient back for another virtual visit after her next CT chest. Patient has upcoming appointment with heme/onc. I will see what their follow up plan is and then schedule patient accordingly. Queenie Adan expresses understanding and is in agreement with plan. Esperanza Yoo APRN.EUNICE Thank you for allowing me to participate in the care of Queenie Adan. Please feel free to contact me with any questions or concerns. Medical Decision Making: Problems: Moderate: 1+ chronic illnesses with change Data: Unique test result(s) reviewed: 2 Medical Decision Making Level: 3 - Low I spent more than 25 minutes gluu-cl-etma with the patient and over half the time was devoted to counseling and/or coordination of care. DISTANCE HEALTH VISIT NOTE This is a selection box for telephone visit , virtual visit using [employer] video visit . It required patient-provider interaction for the medical decision making as documented below. History Queenie Adan is a 77 year old female Never smoker with a past medical history significant for breast cancer (diagnosed 1998 s/p lumpectomy and chemotherapy; diagnosed 2016 s/p mastectomy), IPMN, HTN, CAD, A.fib on Eliquis, HfpEF, CAMRYN who is being seen as a follow up visit for evaluation of a lung nodule(s). The patient had a new [address] chest in April 2022. Here today to review follow up CT scan. The patient states she has been doing well since her last visit with us. She did have a new squamous cell lesion found on her nose. She states she is having Mohs surgery next week. She denies recent respiratory illness or new complaints. No shortness of breath, cough, wheezing, chest pain or hemoptysis. She states she has had some recent issues with CPAP machine. She is working with sleep center on this. Lung Nodule(s) Characteristics Date of initial imaging study: 05/14/22 Date of most recent imaging study: 07/24/22 Size of most concerning nodule: 9 Density of most concerning nodule: Solid Border of most concerning nodule: Smooth Location of most concerning nodule: Right lower lobe Evaluation to date has included Serial CT Scans covering 3-6 months. Has the nodule of concern remained stable? Nodule has resolved Past Medical History PAST MEDICAL HISTORY Diagnosis Date A-fib ([facility]) Dr. Cody Breast cancer ([facility]) 1998 lobular, left side. Stage I, ER+/IN+/HER2-. Seeing Dr. Cid and Tracy Chronic diastolic CHF (congestive heart failure) ([facility]) Coronary artery disease mild Elevated alkaline phosphatase level Falls frequently GERD (gastroesophageal reflux disease) HTN (hypertension) Hyperparathyroidism ([facility]) IPMN (intraductal papillary mucinous neoplasm) 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, estrogen receptor positive ([facility]) 01/09/2017 Osteoarthritis, knee Pancreatic cyst 11/2019 Pancreatitis PONV (postoperative nausea and vomiting) Prediabetes Recurrent seroma of breast S/P ablation of atrial fibrillation 2009 Sleep apnea on CPAP Vaginal dryness Varicose veins of both lower extremities Past Surgical History PAST SURGICAL HISTORY Procedure Laterality Date ABLATION CATHETER 09/2014 venous ablation left GSV AFIB ABLATION/PULM VEIN ISOLATION 2010 APPENDECTOMY 1957 BREAST BIOPSY 1973 benign BREAST LUMPECTOMY HX Left 1998 left breast: 08/02 nodes; s/p Adj Chemo & Adj Radt CARDIAC CATHETERIZATION HX 07/2014 ostail LAD 35% COLONOSCOPY 06/2016 5 mm polyp. repeat in 5 years EXC CYST/ABERRANT BREAST TISSUE OPEN / LESION 03/21/2020 EXCISION MALIGNANT LESIONS,TRUNK,ARMS,LEGS Left 03/11/2017 Re-Excision of Left Mast site: negative for cancer MASTECTOMY, SIMPLE, COMPLETE Left 02/12/2017 Left Compl Mast: pT1cNx, ER/IN+, HER2 Neg IDC w/Radial Margin MIDLINE INSERTION/CONSULT 08/17/2020 NIPPLE EXPLORATION Right 2013 ductal excision Right breast OTHER 2007 left knee ligament replacement OTHER 07/2020 Pancreatic surgery PAST SURGICAL HISTORY OF 11/2019 pancreatic cyst fluid removal REMOVE CATARACT, INSERT LENS,EX Bilateral Medications exemestane (AROMASIN) 25 mg tablet^Take 1 tablet by mouth once daily. TAKE AFTER A MEAL.^Disp: 90 tablet^Rfl: 3 atorvastatin (LIPITOR) 20 mg tablet^Take 1 tablet by mouth daily at bedtime. For cholesterol.^Disp: 90 tablet^Rfl: 1 amLODIPine (NORVASC) 5 mg tablet^Take 1 tablet by mouth once daily.^Disp: 90 tablet^Rfl: 1 metFORMIN (GLUCOPHAGE) 500 mg tablet^Take 1 tablet by mouth twice daily with meals.^Disp: 180 tablet^Rfl: 1 apixaban (ELIQUIS) 5 mg tab(s)^Take 1 tablet by mouth twice daily. (restart 12/09/19)^Disp: 180 tablet^Rfl: 1 furosemide (LASIX) 40 mg tablet^Take 1 tablet by mouth every 48 hours AND 2 tablets every 48 hours. Alternate 40 mg daily with 80 mg daily.^Disp: 135 tablet^Rfl: 3 potassium chloride ER (K-DUR, KLOR-CON) 20 mEq tablet^TAKE 2 TABLETS BY MOUTH EVERY 48 HOURS AND 4 TABLETS BY MOUTH EVERY 48 HOURS^Disp: 150 tablet^Rfl: 3 CPAP/BIPAP/OTHER^Type .CPAPSettings into a note to see current settings/supplies/DME information.^Disp: 1 Each^Rfl: 0 ramipril (ALTACE) 10 mg capsule^Take 1 capsule by mouth twice daily.^Disp: 180 capsule^Rfl: 1 zoledronic acid (RECLAST) 5 mg/100 mL pgbk PREMIX piggyback^Inject 100 mL intravenously as directed.^Disp: 100 mL^Rfl: 0 CPAP/BIPAP/OTHER^Type .CPAPSettings into a note to see current settings/supplies/DME information.^Disp: 1 Each^Rfl: 0 metoprolol succinate ER (TOPROL XL) 25 mg 24 hr tablet^TAKE 1 TABLET BY MOUTH EVERYDAY AT BEDTIME^Disp: 90 tablet^Rfl: 3 CPAP/BIPAP/OTHER^Type .CPAPSettings into a note to see current settings/supplies/DME information.^Disp: 1 Each^Rfl: 0 acetaminophen (TYLENOL) 500 mg tablet^Take 1,000 mg by mouth as needed.^Disp: ^Rfl: palbociclib (IBRANCE) 125 mg tablet^Take 1 tablet (125mg) by mouth once daily for 21 days on then 7 days off. Take with or without food.^Disp: 21 tablet^Rfl: 5 biotin 5,000 mcg subl^Dissolve 1 tablet under the tongue once daily.^Disp: ^Rfl: Famotidine-Ca Carb-Mag Hydrox (PEPCID COMPLETE) 10-800-165 mg chew^Take 1 tablet by mouth once daily as needed.^Disp: ^Rfl: dafhq-fp-0-aog-zai-vvhvzsh-ast [phone] mg cap^Take 1 tablet by mouth.^Disp: ^Rfl: cholecalciferol, vitamin D3, (VITAMIN D3 ORAL)^Take 1,000 Units by mouth twice daily. ^Disp: ^Rfl: vit A/vit C/vit E/zinc/copper (PRESERVISION AREDS ORAL)^Take 1 tablet by mouth twice daily.^Disp: ^Rfl: CPAP^Pressure changed in my office to Autopap 9.5-15 cm H2O, Heat Humidity & heated Tubing (JIMBO) suitable mask, [employer] supplies, opt Chinstrap, G47.33.^Disp: 1 Device^Rfl: 11 (Patient taking differently: Pressure changed in my office to Autopap 5-8 cm H2O, Heat Humidity & heated Tubing (JIMBO) suitable mask, [employer] supplies, opt Chinstrap, G47.33.) gluc benitez/chondro benitez A/vit C/Mn (GLUCOSAMINE-CHONDROITIN COMPLX ORAL)^Take 1 tablet by mouth once daily. ^Disp: ^Rfl: Coenzyme Q10 300 mg cap^Take 300 mg by mouth once daily.^Disp: ^Rfl: melatonin 3 mg^Take 5 mg by mouth daily at bedtime. ^Disp: ^Rfl: Allergies 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 [place] [Hydrocodone-* Vomiting Penicillins Other: See Comments blisters Family History FAMILY HISTORY Problem Relation Age of Onset Breast Cancer Mother Heart Mother 95 Thyroid Mother Coronary Artery Disease Father 75 Prostate Cancer Brother pancreatic Prostate Cancer Brother Hypertension Brother Cancer Brother Mantle Cell Lymphnomas - dx last month Hypertension Brother Hypertension Brother Thyroid Brother Hypertension Brother Hypertension Brother Breast Cancer Maternal Aunt lived til 103 Social History Social History Tobacco Use Smoking status: Never Smokeless tobacco: Never Vaping Use Vaping Use: Never used Substance Use Topics Alcohol use: Yes Comment: rare, maybe one drink a month Drug use: No REVIEW OF SYSTEMS: GENERAL: feeling well without fatigue, no recent change in weight, no fever, activity level is normal HEENT: no nasal congestion or rhinorrhea RESPIRATORY: no cough, no wheezing or shortness of breath CARDIOVASCULAR: no chest pain, no palpitations SKIN: no rash VIDEO EXAM: (if completed, performed via video enabled technology) GENERAL: alert and appropriate, in no distress, well-hydrated, well nourished, and happy, smiling, interactive EARS: hearing grossly normal RESPIRATORY: breathing non-labored CHEST: equal chest rise with normal respiratory effort Diagnostic Data CT Chest 07/24/22 IMPRESSION: Scattered groundglass opacities of both lungs slightly increased. Previously described 0.9 x 0.7 cm nodule in posterior right lower lobe is no longer present. Stable 0.6 cm nodule in the left lower lobe. No new or enlarging pulmonary nodule. Left mastectomy and axillary node dissection. Cardiac enlargement. Atherosclerotic calcification of the aorta and coronary arteries. Ectasia of the ascending thoracic aorta. I/ have personally visualized, reviewed and confirmed the imaging findings. No textual results found for the specified procedure(s). I have personally visualized, reviewed and confirmed the findings on pulmonary function testing. Assessment / Plan @LNFOLLOWUP@ To optimize physician communication via the electronic health record, the Assessment & Plan section has been placed at the beginning of this note. ----- Esperanza Yoo APRN.EUNICE Pulmonary & Critical Care Medicine Res[facility] [place] July 29, 2022 8:45 AM CC: Tala Negron MD documented in this encounter [facility] 07-28-2022 Note [facility] 07-28-2022 History of Present illness Narrative Episode Visit Count: 1 Therapist That Will Accept/Oversee The Plan Of Care: Anselmo Prather PT Start of Care Date: 07/28/22 Onset Date: 07/28/02 Plan of Care Certification Date: 07/28/22 Next Certification Due Date: 09/01/22 Patient Identified by Name and Date of : Yes REHABILITATION AND SPORTS THERAPY PHYSICAL THERAPY EVALUATION PLAN OF CARE: Assessment: Queenie Adan presents with chief complaint of instability in B knees that interferes with walking (exercising). She presents with impairments in balance, coordination, gait, overall function, and symptom management. PROMIS (Patient-Reported Outcomes Measurement Information System) scores were reviewed and physical function domain identified as a rehabilitation concern. Prognosis for therapy is Excellent due to: current objective clinical presentation, good overall health status, positive past response to therapy, within-session changes, good support system/ coping skills. She will benefit from skilled therapy services to meet the goals established for this plan of care as noted below. Goals for Episode of Care: created on 07/28/22 through 09/01/22 Pt will be educated on proper wear schedule and care of custom biomechanical foot orthotics Pt will be provided with custom biomechanical B foot orthotics that improve foot and ankle biomechanics as intended with proper fit and function. Patient Goals: improve biomechnanics Planned Interventions, Frequency, and Duration: Current Frequency: 1 visit Duration: 1 visit Total Number of Visits Planned: 2 (1 evaluation visit and 1 visit for fitting and bulk picker) Planned Treatment Interventions: Orthosis / DME, Body Mechanics Training, Patient/Family/Caregiver Education, Self-assisted management (32263), Gait Training ([id number]) PLAN FOR NEXT VISIT: Fitting and bulk picker of custom foot orthotics Patient demonstrates good understanding of plan of care and treatment. The above goals and plan of care were discussed and agreed upon by patient/family. 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 She reports that she has received a lot of PT for patellar tracking deficits and even received custom foot orthotics 20 years ago. She reports that she exercises regularly to maintiain the strength of her quads and help with patellar tracking. She reports that the orthotics 20 years ago were effective but are no longer. Patient Goals: improve biomechnanics Functional Limitations: walking (exercising) Prior Level of Function: Independent without limitations Relevant History Employment: Retired Home Environment Patient Lives With: Self/Alone Intake Information: Prescription present Previous Treatment: Orthotics , Physical Therapy Pain: Pain Pain Level: 4 Pain Location: (B foot arches) Description: Aching (short duration) Frequency: Intermittent Post Treatment Pain Post Treatment Pain Level: No Change PROMIS Scales Higher is Better 03/29/2022 05/16/2022 07/25/2022 Phys Func - Score - - 40 (mild dysfunction) Phys Func - Percentile - - 16 % GH Physical - Score 47.7 (Good) 50.8 (Very Good) - GH Physical - Percentile 41 % 53 % - GH Mental - Score 59 (Excellent) 62.5 (Excellent) - GH Mental - Percentile 82 % 89 % - Self-Eff Symptom - Score - - 45 (Average) Self-Eff Symptom - Percentile - - 31 % T-scores: mean of general population = 50. 5 points is clinically meaningfully difference Percentiles provide an indication of how the patient's score ranks in relation to the general population. Higher percentile rankings indicate better function/quality of life. 50th percentile is the average of the general population and indicates half of respondents had a worse score. T-scores: mean of general population = 50. 5 points is clinically meaningfully difference Percentiles provide an indication of how the patient's score ranks in relation to the general population. Higher percentile rankings indicate better function/quality of life. 50th percentile is the average of the general population and indicates half of respondents had a worse score. OBJECTIVE MEASURES WITH LEVEL OF FUNCTION: Posture / Alignment R LE Anatomical Alignment Non Weight-Bearing: R Plantarflexed 1st ray L LE Anatomical Alignment Non Weight-Bearing: L Plantarflexed 1st ray Gait Gait Observation: normal Plantar Callus Pattern: Right:none Left:none Supine: ROM: Ankle Dorsiflexion: AROM:WNLdegrees Calcaneal eversion: Right: WNL Left: WNL Hallux dorsiflexion: Open chain right: >65 left: >65 Closed chain right: >9 left: >9 Alignment: Rest: Medial arch appearance: Right:High Left:High Equinus: Right:forefoot Left:forefoot Prone: Alignment: Subtalar neutral: Right: rearfoot:0 degrees forefoot:8 degrees varus Left: Rearfoot:0 degrees Forefoot:6 degrees varus First Ray Position: Right: pf Left: pf First Ray Mobility: Right: flexibile Left:flexibile WEIGHT BEARING: Alignment: Rest: Medial arch appearance: Right: Average Left Average Calcaneal stance position: Right: everted Left everted Knee position: Right: Straight Left Straight Subtalar Neutral: Medial arch appearance: Right Average Left:Average Calcaneal stance position: Right: rectus Left: inverted Forefoot position: Right: off ground Left: off ground Knee position: Right: straight Left straight Mobility: Hallux dorsiflexion Closed chain: Right: >9 Left >9 Midtarsal Mobility: (navicular drop) Right: hypo <6mm Left:hypo <6mm Rearfoot excursion: Right:4-6 norm Left: >6 hyper FUNCTIONAL EVALUATION: Balance(SL): ability/quality Right: unsteady Left: unsteady Balance Test: *Right: Improved performance with: 0 degree rearfoot 6 degree forefoot wedges *Left: Improved performance with: 0 degree rearfoot 4 degree forefoot wedges Gait Assessment: Walking: normal Running: not tested Orthotic Design Request Shoe size: 9.5. Weight: 140 pounds. Orthotic (shell): Performance RX-A semi flexible Plate Specifications: Heel Cup Low (12mm), Device Width Bisect 1st Posting: right: 4 degrees for forefoot Intrinsic(2 degrees) and Extrinsic(2 degrees) and 0 degrees for rearfoot To Vertical left: 3 degrees for forefoot Intrinsic and 0 degrees for rearfoot To Vertical Additions: none Padding: Type: Poron STD Thickness:1/8 Padding Length:heels to toes Accommodations: none Top Covers: Material: leatherette STD - reji black Length:to toes Classification of foot type: Forefoot equinus and forefoot varus Education: Education Learning Preferences: Explanation, Demonstration, Performance, Printed Materials Barriers: None Learning/educational needs: Procedure / Surgery, Plan of Care, Body Mechanics, Gait Training Education Provided: Yes, see treatment interventions for education provided Education Provided To: Patient Education Mode/Type: Demonstration, Explanation/Discussion, Literature/Printed Materials, Performance Response to Education/Teach Back: States/Identifies, Requires Review/Additional Education TREATMENT: PT Treatment Interventions: Orthotic Mgmt/Train (Initial) Evaluation Orthotics Management and Training: A thorough and complete biomechanical assessment completed and all results explained to pt in detail. Pt. was educated on the anatomy of affected area, possible source of symptoms and rationale for proposed treatment plan. A variety of different sized wedges were used as trials for posting at both forefoot and rearfoot. Pt ability with single leg stance and single leg squats was tested without wedges and compared to each trial with different size wedges. Once stability was achieved and biomechanics improved, wedge size recorded for future posting prescription. With patient prone, subtalar neutral position digital scans were made of bilateral feet. These scans and and all supporting documentation was prepared for shipment to lab so that custom foot orthotics can be fabricated. Pt was educated on proper fitting shoes to be used with custom foot orthotics. Recommendations were made on brands of shoes that are well constructed and provide appropriate support. Pt was advised to select neutral shoes to pair with the custom foot orthotics despite patient's foot structure. Pt was also given recommendations on supportive sandals and where these can be purchased. Pt was educated on the process that we will follow once custom orthotics arrive in this department and all of the patient's questions were answered. Skilled Intervention: Clinical knowledge and skills required for custom orthotic fabrication and wearing schedule Patient/Family/Caregiver Education: Precautions, purpose and use of orthosis Wearing schedule explained in detail Discussed management of any symptoms related to wearing the orthosis Billing * Evaluation Moderate Complexity: 1 Unit Orthotic Mgmt/Train (Initial) Treatment Minutes: 30 Total Treatment Time Minutes (timed/untimed): 60 Anselmo Prather PT documented in this encounter [facility] 07-24-2022 Note [facility] 07-22-2022 Miscellaneous Notes Done. Nimisha Aleman APRN.SAWMILL 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 Please place order for a stat BMP or CMP or Creatinine for pt appt is 07/24/22 documented in this encounter [facility] 07-10-2022 Miscellaneous Notes Patient needs Rx resent to [facility]. She realizes that this was sent in November for 1 year but she had pharmacy issues and needs it sent again. Angy Schultz LPN documented in this encounter [facility] 07-07-2022 Miscellaneous Notes Confirmed receipt of photo from the patient. She reports the biopsy site is the small red area in the central supratip of her nose. DEPARTMENT OF DERMATOLOGY DERMATOLOGY SURGERY APPOINTMENT ROUTING SLIP A. 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 Office states they are unable to e-mail a photo as their consult order was not sent to [facility] derm but rather to the patients PCP and the PCP would have to request the photo. They are unable to send to [facility] derm at this time. Recommended procedure: Mohs micrographic surgery Copy of Pathology Report Sent: EXTERNAL Yes If malignant: Primary Is the skin cancer: Rapidly enlarging in size: No Painful: No Large (greater than 2 cm): No Past Medical History First skin cancer: Yes First time having Mohs surgery: Yes Advised to take all prescription medications, including prescription Aspirin but avoid all prophylactic Aspirin and NSAIDS 2 weeks prior and no alcohol 2 days prior to surgery. Patient was successfully called: Yes Mohs surgery was reviewed with patient: Yes Patient needs additional information about Mohs: No Patient instructed to call Derm Surgery ([phone]) if they have not received a call from them in 1 week. Spoke to patient and she will send a photo to us via [employer]. Patient states the biopsy site was in the center of the tip of her nose. PROCEDURE & TIME REQUIRED A. 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 Where is the lesion located? Nose, Ear, Eyelids, or Lips (2 point) 2. Is the lesion a recurrent tumor?No (0 points) 3. Does the tumor have an aggressive histologic subtype? (micronodular or infiltrative BCC, moderate or poorly differentiated SCC) No (0 points) 4. Lesion size <1 cm (0 points) Total Points for Lesion: 2 If 2 lesions are close together and done on the same day add 1 point. Total points: 2 If score is 2 or higher, schedule in AM Mohs slots only If score is 5 or higher, please hold 2 Mohs surgery slots For every 4 additional points hold a additional slot If the lesion has a greater than 8 pieces please schedule at location where 2 histotechs are located. Please include total points in the appointment visit notes. Derm time required: one slot and AM Approved by: Rachelle Stock RN Schedule with: First Available Location: patient preference Omr received documented in this encounter [facility] 07-02-2022 Miscellaneous Notes I called and spoke to [facility] dermatology and they stated they need the records and pathology report from [facility] before they can schedule patient for the mohs procedure there. I called [facility] but they are already closed for the day. Please try calling them and requesting that they fax records (Last visit notes) and pathology to [facility] dermatology at [phone]. Then we can call them back after we know they received the records and schedule Queenie for the Mohs procedure. July Zaragoza Pss Please see my chart message. Pt. would like to have Mohs procedure done at [facility] derm. Please schedule. Thank you. Nimisha Aleman APRN.EUNICE documented in this encounter [facility] 06-03-2022 History of Present illness Narrative [facility] INCIDENTAL LUNG NODULE PROGRAM ([facility] Follow-Up) Assessment / Plan 1. Lung nodule - ICD9: 793.11, ICD10: R91.1 - Most recent CT Chest 05/14/22 showed a 9 mm solid nodule RLL that is new when compared to her previous CT chest 02/05/22. Imaging was reviewed today with patient. Her oncology team has already ordered a follow up CT chest which she has scheduled 07/25/21. I agree with the plan and we will see her back for another virtual visit after she completes the scan. Otherwise she has been doing well without any new respiratory complaints. Queenie Adan expresses understanding and is in agreement with plan. Esperanza Yoo APRN.CNP Incidental Lung Nodule Follow Up Concern for New Cancer Diagnosis: No Recommendation: CT Scan Follow up Date: 07/28/2022 Lung Nodule Follow-Up Scheduled: Yes Enrolled in Lung Nodule program: Yes Lung Nodule Program Location: [place] Thank you for allowing me to participate in the care of Queenie Adan. Please feel free to contact me with any questions or concerns. Medical Decision Making: Problems: Moderate: 1+ chronic illnesses with change Data: Unique test result(s) reviewed: 2 Medical Decision Making Level: 3 - Low I spent more than 30 minutes [id number] with the patient and over half the time was devoted to counseling and/or coordination of care. [facility] VISIT NOTE This is a selection box for telephone visit , virtual visit using [employer] video visit . It required patient-provider interaction for the medical decision making as documented below. History Queenie Adan is a 77 year old female Never smoker with a past medical history significant for Breast cancer (first diagnosed 1998 s/p lumpectomy and chemotherapy, second diagnosed 2016 s/p mastectomy), IPMN (pancreatectomy and splenectomy 2020), HTN, CAD, A.Fib on Eliquis, HfpEF, CAMRYN who is being seen as a follow up visit for evaluation of a lung nodule(s). The patient states she has been doing well over the last year. She has remained active by participating in aerobics classes. She admits to intermittent shortness of breath with exertion. Denies cough, mucus or wheezing. Denies chest pain or hemoptysis. Denies fevers, chills or recent respiratory illnesses. Denies unintentional weight loss. She completed repeat CT chest 05/14/22 which showed a new RLL nodule measuring 9 mm. Other nodules are stable and mediastinal lymph nodes have remained stable as well. Lung Nodule(s) Characteristics Date of initial imaging study: 12/11/20 Date of most recent imaging study: 05/14/22 Size of most concerning nodule: 9 Density of most concerning nodule: Solid Border of most concerning nodule: Smooth Location of most concerning nodule: Right lower lobe Evaluation to date has included Serial CT Scans covering 12-24 months. Has the nodule of concern remained stable? No the nodule is new Past Medical History PAST MEDICAL HISTORY Diagnosis Date A-fib (HCC) Dr. Cody Breast cancer (HCC) 1998 lobular, left side. Stage I, ER+/IN+/HER2-. Seeing Dr. Friend Chronic diastolic CHF (congestive heart failure) (HCC) Coronary artery disease mild Elevated alkaline phosphatase level Falls frequently GERD (gastroesophageal reflux disease) HTN (hypertension) Hyperparathyroidism (HCC) IPMN (intraductal papillary mucinous neoplasm) 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, estrogen receptor positive (HCC) 01/09/2017 Osteoarthritis, knee Pancreatic cyst 11/2019 Pancreatitis PONV (postoperative nausea and vomiting) Prediabetes Recurrent seroma of breast S/P ablation of atrial fibrillation 2009 Sleep apnea on CPAP Vaginal dryness Varicose veins of both lower extremities Past Surgical History PAST SURGICAL HISTORY Procedure Laterality Date ABLATION CATHETER 09/2014 venous ablation left GSV AFIB ABLATION/PULM VEIN ISOLATION 2010 APPENDECTOMY 1957 BREAST BIOPSY 1973 benign BREAST LUMPECTOMY HX Left 1998 left breast: 2/ nodes; s/p Adj Chemo & Adj Radt CARDIAC CATHETERIZATION HX 07/2014 ostail LAD 35% COLONOSCOPY 06/2016 5 mm polyp. repeat in 5 years EXC CYST/ABERRANT BREAST TISSUE OPEN 1/> LESION 03/21/2020 EXCISION MALIGNANT LESIONS,TRUNK,ARMS,LEGS Left 03/11/2017 Re-Excision of Left Mast site: negative for cancer MASTECTOMY, SIMPLE, COMPLETE Left 02/12/2017 Left Compl Mast: pT1cNx, ER/IN+, HER2 Neg IDC w/Radial Margin MIDLINE INSERTION/CONSULT 08/17/2020 NIPPLE EXPLORATION Right 2013 ductal excision Right breast OTHER 2007 left knee ligament replacement OTHER 07/2020 Pancreatic surgery PAST SURGICAL HISTORY OF 11/2019 pancreatic cyst fluid removal REMOVE CATARACT, INSERT LENS,EX Bilateral Medications atorvastatin (LIPITOR) 20 mg tablet^Take 1 tablet by mouth daily at bedtime. For cholesterol.^Disp: 90 tablet^Rfl: 1 amLODIPine (NORVASC) 5 mg tablet^Take 1 tablet by mouth once daily.^Disp: 90 tablet^Rfl: 1 metFORMIN (GLUCOPHAGE) 500 mg tablet^Take 1 tablet by mouth twice daily with meals.^Disp: 180 tablet^Rfl: 1 apixaban (ELIQUIS) 5 mg tab(s)^Take 1 tablet by mouth twice daily. (restart 12/09/19)^Disp: 180 tablet^Rfl: 1 furosemide (LASIX) 40 mg tablet^Take 1 tablet by mouth every 48 hours AND 2 tablets every 48 hours. Alternate 40 mg daily with 80 mg daily.^Disp: 135 tablet^Rfl: 3 potassium chloride ER (K-DUR, KLOR-CON) 20 mEq tablet^TAKE 2 TABLETS BY MOUTH EVERY 48 HOURS AND 4 TABLETS BY MOUTH EVERY 48 HOURS^Disp: 150 tablet^Rfl: 3 CPAP/BIPAP/OTHER^Type .CPAPSettings into a note to see current settings/supplies/DME information.^Disp: 1 Each^Rfl: 0 ramipril (ALTACE) 10 mg capsule^Take 1 capsule by mouth twice daily.^Disp: 180 capsule^Rfl: 1 exemestane (AROMASIN) 25 mg tablet^Take 1 tablet by mouth once daily. TAKE AFTER A MEAL.^Disp: 90 tablet^Rfl: 3 zoledronic acid (RECLAST) 5 mg/100 mL pgbk PREMIX piggyback^Inject 100 mL intravenously as directed.^Disp: 100 mL^Rfl: 0 CPAP/BIPAP/OTHER^Type .CPAPSettings into a note to see current settings/supplies/DME information.^Disp: 1 Each^Rfl: 0 metoprolol succinate ER (TOPROL XL) 25 mg 24 hr tablet^TAKE 1 TABLET BY MOUTH EVERYDAY AT BEDTIME^Disp: 90 tablet^Rfl: 3 CPAP/BIPAP/OTHER^Type .CPAPSettings into a note to see current settings/supplies/DME information.^Disp: 1 Each^Rfl: 0 acetaminophen (TYLENOL) 500 mg tablet^Take 1,000 mg by mouth as needed.^Disp: ^Rfl: palbociclib (IBRANCE) 125 mg tablet^Take 1 tablet (125mg) by mouth once daily for 21 days on then 7 days off. Take with or without food.^Disp: 21 tablet^Rfl: 5 biotin 5,000 mcg subl^Dissolve 1 tablet under the tongue once daily.^Disp: ^Rfl: Famotidine-Ca Carb-Mag Hydrox (PEPCID COMPLETE) 10-800-165 mg chew^Take 1 tablet by mouth once daily as needed.^Disp: ^Rfl: [id number]-[id number]-[id number]-eqc-lruozju-ast [phone] mg cap^Take 1 tablet by mouth.^Disp: ^Rfl: cholecalciferol, vitamin D3, (VITAMIN D3 ORAL)^Take 1,000 Units by mouth twice daily. ^Disp: ^Rfl: vit A/vit C/vit E/zinc/copper (PRESERVISION AREDS ORAL)^Take 1 tablet by mouth twice daily.^Disp: ^Rfl: CPAP^Pressure changed in my office to Autopap 9.5-15 cm H2O, Heat Humidity & heated Tubing (JIMBO) suitable mask, [employer] supplies, opt Chinstrap, G47.33.^Disp: 1 Device^Rfl: 11 (Patient taking differently: Pressure changed in my office to Autopap 5-8 cm H2O, Heat Humidity & heated Tubing (JIMBO) suitable mask, [employer] supplies, opt Chinstrap, G47.33.) gluc benitez/chondro benitez A/vit C/Mn (GLUCOSAMINE-CHONDROITIN COMPLX ORAL)^Take 1 tablet by mouth once daily. ^Disp: ^Rfl: Coenzyme Q10 300 mg cap^Take 300 mg by mouth once daily.^Disp: ^Rfl: melatonin 3 mg^Take 5 mg by mouth daily at bedtime. ^Disp: ^Rfl: Allergies 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 [place] [Hydrocodone-* Vomiting Penicillins Other: See Comments blisters Family History FAMILY HISTORY Problem Relation Age of Onset Breast Cancer Mother Heart Mother 95 Thyroid Mother Coronary Artery Disease Father 75 Prostate Cancer Brother pancreatic Prostate Cancer Brother Hypertension Brother Cancer Brother Mantle Cell Lymphnomas - dx last month Hypertension Brother Hypertension Brother Thyroid Brother Hypertension Brother Hypertension Brother Breast Cancer Maternal Aunt lived til 103 Social History Social History Tobacco Use Smoking status: Never Smokeless tobacco: Never Vaping Use Vaping Use: Never used Substance Use Topics Alcohol use: Yes Comment: rare, maybe one drink a month Drug use: No REVIEW OF SYSTEMS: GENERAL: feeling well without fatigue, no recent change in weight, no fever, activity level is normal HEENT: no nasal congestion or rhinorrhea RESPIRATORY: no cough, no wheezing or shortness of breath CARDIOVASCULAR: no chest pain, no palpitations SKIN: no rash VIDEO EXAM: (if completed, performed via video enabled technology) GENERAL: alert and appropriate, in no distress, well-hydrated, well nourished, and happy, smiling, interactive RESPIRATORY: breathing non-labored CHEST: equal chest rise with normal respiratory effort NEUROLOGIC: no obvious deficit Diagnostic Data RESULT: Limitations: None. Lines, tubes, and devices: None. Lung parenchyma and airways: New nodule within the right lower lobe on image 135 measures 0.9 x 0.7 cm. Bilateral apical scarring. Stable 6 mm nodule within the left lung on image 84. Stable posttreatment appearance of the left upper lobe. No consolidation. The central airways are patent. Pleural space: No pleural effusion. No pleural thickening. Lower neck, lymph nodes, and mediastinum: The imaged thyroid gland is normal. Borderline mediastinal nodes are stable. No developing lymphadenopathy in the supraclavicular, axillary, mediastinal, or hilar regions. Heart, pericardium, and thoracic vessels: The thoracic aorta and main pulmonary artery are normal in caliber. The cardiac chambers are increased in size. Coronary artery atherosclerotic calcifications are noted, although the study is not optimized for coronary assessment. No pericardial effusion or thickening. Bones and soft tissues: No destructive bone lesion. Chest wall is unremarkable. Upper abdomen: Scans through the abdomen and pelvis are dictated separately Tool Machine Set Up Operator (topogram) images: No additional findings. IMPRESSION: New right lower lobe pulmonary nodule. Metastatic disease cannot be excluded. Stable left lung nodule. Short interval follow-up recommended ACTIONABLE RESULT: FOLLOW-UP Acuity: Actionable Findings: Thoracic-Other Routing Code: CT_1 Recommendation: Unlisted Recommendation (see report) Time Frame: At the discretion of the clinical team. COMMUNICATION: Results will be communicated with the ordering provider via [employer] staff message or phone message by [facility] within 2 business days of report finalization. I have personally visualized, reviewed and confirmed the imaging findings. Assessment / Plan [email or web address] To optimize physician communication via the electronic health record, the Assessment & Plan section has been placed at the beginning of this note. ----- Esperanza Yoo APRN.[facility] Pulmonary & Critical Care Medicine Respiratory [place] June 02, 2022 1:18 PM CC: Tala Negron MD documented in this encounter [facility] 05-26-2022 Miscellaneous Notes SW received a [employer] renewal application for pt for Ibrance medication. SW obtained pt's signature and copies of pt's insurance cards. SW had physician review and sign application as well. SW successfully faxed these re-enrollment forms to [employer] this date and sent the original to internal scanning. MICHAEL Shin-S documented in this encounter [facility] 05-23-2022 History of Present illness Narrative Chief Complaint Patient presents with: Established Patient HPI: Queenie Adan is a 77 year old female who presents here today for evaluation for next cycle of ibrance. Per Dr. Thao's previous note: H/o breast cancer, atrial fibrillation, coronary artery disease, hypertension, diastolic CHF, obstructive sleep apnea, GERD and pancreatic cyst. 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 2 of 12 nodes were positive. She underwent lumpectomy followed by adjuvant chemotherapy with AC followed by T. She then received adjuvant radiation followed by tamoxifen for 5 years. She was then diagnosed with a new primary breast cancer in the ipsilateral breast. She underwent mastectomy for what proved to be a [id number] ER+/IN+/HER2- breast cancer. The tumor was 1.6 cm. It was grade 3. Lymph nodes were not obtained secondary to her previous surgery. There was a positive radial margin and she underwent repeat excision of the margin with the pathology demonstrating fat necrosis but no malignant tissue. She was on anastrozole from May 2017 through January 2018. 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 Has h/o hypercalcemia dating to at least 07/24/2017. Found to have dilated pancreatic duct on US 08/2018 done for increased alk phos. CT Pancreas 09/10/2018: Pancreatic ductal dilatation with abrupt transition of duct caliber consistent with pancreatic ductal stricture. Different considerations includes benign and malignant stricture. Recommend further characterization with contrast-enhanced MR of the pancreas. MRI could also characterize the subcentimeter pancreatic head density noted in results. Right hepatic lobe low-attenuation density consistent with cysts noted on ultrasound. Subcentimeter LEFT hepatic lobe density most likely benign. Cardiomegaly. MRI Pancreas 09/14/2018: Significant dilation of the main pancreatic duct measuring up to 1.5 cm with associated multiple dilated sidebranches. Abrupt cut off within the neck and normal caliber of the main duct within the head. Benign or malignant stricturing would be the primary consideration. Endoscopic workup recommended. Mild central intrahepatic and extrahepatic biliary dilation. No choledocholithiasis. No adenopathy. EGD/EUS 10/12/2018: 20 mm cystic lesion was seen in the pancreatic body non-communicating with main duct. Fine needle aspiration for fluid performed. Pathology--no formal pathology or cytology, but fluid CEA normal but amylase significantly elevated. Repeat EGD/EUS 12/01/2019: Cyst 25 x 14 mm. Pathology: Very limited sample. Negative for malignant cells. MRI Pancreas 01/03/2020: Marked main pancreatic ductal dilation up to 1.7 cm in the body/tail with associated atrophy, mildly increased since 09/14/2018, with abrupt caliber change in the neck without associated mass. Multiple dilated side branches orcommunicating cysts are also unchanged or mildly increased. Differential considerations include a segmental main duct IPMN or stricture (i.e. from a prior episode of pancreatitis). She was advised to began exemestane in January 2019, but did not. Component Latest Ref Rng & Units 02/02/2018 08/26/2018 12/04/2019 12/05/2019 12/09/2019 12/09/2019 12/13/2019 12/30/2019 9:28 AM 9:28 AM Protein, Total 6.3 - 8.0 g/dL 7.1 7.5 6.1 (L) 6.0 (L) 7.2 7.1 7.4 Albumin 3.9 - 4.9 g/dL 4.7 4.6 3.6 (L) 3.5 (L) 4.1 4.2 4.3 Calcium 8.5 - 10.2 mg/dL 10.6 (H) 10.9 (H) 9.7 9.5 10.5 (H) 10.7 (H) 10.6 (H) Bilirubin, Total 0.2 - 1.3 mg/dL 0.9 0.9 1.3 1.4 (H) 0.7 0.7 0.6 Alkaline Phosphatase 34 - 123 U/L 127 (H) 146 (H) 159 (H) 187 (H) 215 (H) 217 (H) 203 (H) AST 13 - 35 U/L 25 24 15 16 26 25 39 (H) Glucose 74 - 99 mg/dL 83 102 (H) 111 (H) 86 89 94 103 (H) BUN 7 - 21 mg/dL 16 19 10 8 11 11 18 Creatinine 0.58 - 0.96 mg/dL 0.76 0.79 0.48 (L) 0.53 (L) 0.69 0.67 0.70 Sodium 136 - 144 mmol/L 139 142 140 141 140 141 140 Potassium 3.7 - 5.1 mmol/L 4.2 3.9 3.6 (L) 3.2 (L) 4.1 4.3 4.1 Chloride 97 - 105 mmol/L 99 103 103 102 100 100 100 CO2 22 - 30 mmol/L 23 28 24 26 30 29 26 Anion Gap 9 - 18 mmol/L 17 11 13 13 10 12 14 ALT 7 - 38 U/L 22 20 23 26 23 23 38 eGFR- >60 >60 >60 >60 >60 >60 >60 eGFR-All Other Races . >60 >60 >60 >60 >60 >60 >60 PTH, Intact 15 - 65 pg/mL 58 PTH Related Peptide 0.0 - 3.4 pmol/L 4.3 (H) CA19-9 <36 U/mL 18 Whole-body bone scan on 12/22/2019 demonstrated no suspicious area of radiotracer uptake suggesting metastatic disease to the bones. PET 01/24/2020: NECK: No FDG avid neoplastic process. No mass, adenopathy, or fluid collection. CHEST: Status post left mastectomy. Small non hypermetabolic fluid attenuation density in the left anterior chest wall/breast in the subcutaneous tissues, abutting the skin. Differential considerations include possible small focus of recurrence, infected/inflamed sebaceous cyst. Mammogram/ultrasound of the left breast may be of help for further evaluation. ABDOMEN/PELVIS: No FDG avid neoplastic process. No mass, adenopathy, or fluid collection. EXTREMITIES/SKELETON: No FDG avid osseous process. No destructive/traumatic bony abnormality. Previous therapy for breast cancer: 1) AC followed by T. 2) Anastrozole. 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 Pathology: Left mastectomy skin, incision site marked #1, excision (A) - Stromal scar with foreign body giant cell reaction. 2. Left mastectomy skin, area marked #2, excisional biopsy (B) - Invasive ductal carcinoma involving dermis and subcutaneous tissue (please see comment). COMMENT 2. The invasive carcinoma is estimated to involve an area measuring 1.2 cm and is present at the periphery of the tissue edges. The invasive carcinoma is a Westfall Grade 3; definitive dermal angiolymphatic space invasion is not identified. Immunohistochemical stains for estrogen and progesterone receptors, as well as HER2 will be performed and the results reported separately. Estrogen Receptor (ER) Positive (99%) Average stain intensity: Strong Status of internal controls: Internal control cells absent External controls: Appropriately reactive Progesterone Receptor (PgR) Positive (50%) Average stain intensity: Moderate Status of internal controls: Internal control cells absent External controls: Appropriately reactive HER2 (ERBB2) IMMUNOHISTOCHEMISTRY ASSAY Interpretation: NEGATIVE for HER2 (ERBB2) Expression Score: 1+ Subsequently underwent parathyroid exploration where she was found to have 4 gland hyperplasia with enlarged abnormal appearing glands. The right lower gland was smallest and appeared most normal so that was left as a remnant. The other 3 glands were excised. Pathology: A. Parathyroid gland, right upper, parathyroidectomy - Mildly hypercellular parathyroid. B. Parathyroid gland, left upper, parathyroidectomy - Focally hypercellular parathyroid. C. Parathyroid gland, right lower, parathyroidectomy - Normocellular parathyroid. Presents for ongoing oncologic management. Underwent reexcision on 03/21. Pathology: Left breast, ductal mass, excision - Invasive ductal carcinoma, clinically recurrent, Westfall grade 2, measuring 8 mm in greatest dimension (please see comment and synoptic report). - Large organizing hematoma and stromal scar. - Biopsy site reparative changes. EDK/edk 03/27/2020 COMMENT The prior excisional biopsy ([id number]) contained a 12 mm focus of invasive ductal carcinoma. As such, the final pT assignment is pT1c. SYNOPTIC REPORT OF [facility] PATH[facility] FINDINGS DUCTAL MASS, LEFT BREAST: BREAST INVASIVE CARCINOMA WORKSHEET Part: A Procedure: Excision (less than total mastectomy) Specimen Laterality: Left Tumor size: Size of largest invasive carcinoma: Greatest dimension of largest focus of invasion >1 mm: 8 mm Tumor Focality: Single focus of invasive carcinoma Histologic Type of Invasive Carcinoma: Invasive carcinoma of no special type (ductal, not otherwise specified) Histologic Grade: Glandular (Acinar) / Tubular Differentiation: Score 3 Nuclear Pleomorphism: Score 2 Mitotic Rate: Score 1 Overall Grade: Grade II Ductal Carcinoma In Situ: Not identified Tumor Extension: Skin: Invasive carcinoma directly invades into the dermis or epidermis without skin ulceration (this does not change the T classificationof invasive carcinomas) Nipple: Not applicable, no nipple is present Skeletal muscle: Free of carcinoma Invasive Carcinoma Margins: Margins uninvolved by invasive carcinoma Distance from closest margin: 9 mm Closest margin: Deep DCIS Margins: Not applicable (no DCIS in specimen) Lymph Nodes: No lymph nodes submitted or found Treatment Effect: No known presurgical therapy Lymph-Vascular Invasion: Not identified Pathologic Stage Classification (pTNM,AJCC 8th ed) TNM Descriptor(s): r (recurrent) Primary Tumor (Invasive Carcinoma) (pT): pT1c Regional Lymph Nodes (pN): Modifier: Not applicable Category (pN): pNX Distant metastasis: Distant Metastasis (pM) Not applicable/Not confirmed pathologically in this case Estrogen & progesterone receptors: Previously performed and reported as follows: Estrogen receptor: Positive (99%, strong) Progesterone receptor: Positive (50%, moderate) Specimen number #: [id number] (HER2) ERBB2 Status: Previously performed and reported as follows: HER2:Negative (1+) Previous therapy for metastatic breast cancer: 1) RT to chest wall completed 06/12/2020. Current therapy for metastatic breast cancer: 1) Exemestane. Began 2019 2) Palbociclib. 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 Vikram Gomez. Discharged on 08/10/20. Pt. went to ED on 08/15/20 for chest pain, +ST elevation, once transported to [facility] an immediate catherization was done-no significant coronary artery stenosis-no occlusion. Admitted for STEMI vs. pancreatitis on 08/15/20-08/21/20. Bronch negative for malignant cells on 12/26/20. Last day of this cycle was Thursday. Pt. plans to start next cycle next . Appetite: Ok. Wt. down stable Energy level: It's ok. I sleep really well. Exercises daily. Denies fevers or recent illness. Resp:denies cough or sob, occ. walker, uses CPAP-followed by PULM Cardiac:denies chest pain/occ. palpitations/h/o A. fib-followed by cardiology GI:denies abd pain, occ. reflux, denies n/v, moving bowels regularly :denies dysuria/hematuria Extrem:denies pain elsewhere Endo:denies hot flashes Neuro:denies symptoms of neuropathy Skin:denies rashes/lesions Heme:denies bleeding The ROS is otherwise negative. Past medical history, appointments, medications, allergies reviewed. No changes. EXAM: BP 133/81 Pulse 62 Temp 37 C (98.6 F) (Temporal) Wt 64.2 kg (141 lb 8 oz) BMI 25.93 kg/m APPEARANCE Well appearing, alert, in no acute distress, well-hydrated, well nourished. HEART RRR with normal S1 and S2, no murmurs LUNG clear to auscultation LYMPH NODES No cervical lymphadenopathy, No supraclavicular lymphadenopathy, and No axillary lymphadenopathy. ABDOMEN bowel sounds normoactive, soft, non-tender EXTREMITIES No edema NEURO Awake, alert and oriented x 3, Normal gait, and No involuntary motions. SKIN Skin color, texture, turgor normal, no suspicious rashes or lesions LABS: Component Latest Ref Rng & Units 11/07/2021 02/28/2022 05/16/2022 WBC 3.70 - 11.00 k/uL 3.30 (L) 3.35 (L) 3.22 (L) RBC 3.90 - 5.20 m/uL 3.10 (L) 3.28 (L) 3.13 (L) Hemoglobin 11.5 - 15.5 g/dL 11.6 12.3 11.6 Hematocrit 36.0 - 46.0 % 33.5 (L) 34.9 (L) 34.0 (L) MCV 80.0 - 100.0 fL 108.1 (H) 106.4 (H) 108.6 (H) MCH 26.0 - 34.0 pg 37.4 (H) 37.5 (H) 37.1 (H) MCHC 30.5 - 36.0 g/dL 34.6 35.2 34.1 RDW-CV 11.5 - 15.0 % 16.7 (H) 16.2 (H) 15.9 (H) Platelet Count 150 - 400 k/uL 206 168 310 MPV 9.0 - 12.7 fL 9.3 8.9 (L) 8.8 (L) NRBC /100 WBC 0.0 0.0 0.0 Absolute nRBC <0.01 k/uL <0.01 <0.01 <0.01 Neut% % 41.6 38.7 39.0 Abs Neut (ANC) 1.45 - 7.50 k/uL 1.37 (L) 1.30 (L) 1.26 (L) Lymph% % 37.0 47.2 44.0 Abs Lymph 1.00 - 4.00 k/uL 1.22 1.58 1.42 Nicholas% % 14.8 7.8 7.0 Abs Nicholas <0.87 k/uL 0.49 0.26 0.23 Eosin% % 2.7 2.7 3.0 Abs Eosin <0.46 k/uL 0.09 0.09 0.10 Baso% % 3.6 3.3 7.0 Abs Baso <0.11 k/uL 0.12 (H) 0.11 (H) 0.23 (H) Platelet Estimate Adequate Red Cell Morph Reviewed: see results of individual morphologies Anisocytosis Present Ovalocytes Few RBC Fragments None Seen Few (A) Target Cells Few DTYPE Auto Auto Manual Immature Gran % % 0.3 0.3 IMMATURE GRANS (ABS) <0.10 k/uL <0.03 <0.03 Component Latest Ref Rng & Units 02/28/2022 05/14/2022 05/16/2022 Protein, Total 6.3 - 8.0 g/dL 7.7 7.4 7.4 Albumin 3.9 - 4.9 g/dL 5.0 (H) 4.7 4.8 Calcium 8.5 - 10.2 mg/dL 9.5 9.6 9.9 Bilirubin, Total 0.2 - 1.3 mg/dL 0.8 0.7 0.7 Alkaline Phosphatase 34 - 123 U/L 133 (H) 149 (H) 164 (H) AST 13 - 35 U/L 17 19 18 ALT 7 - 38 U/L 13 12 13 Glucose 74 - 99 mg/dL 104 (H) 78 134 (H) BUN 7 - 21 mg/dL 32 (H) 29 (H) 36 (H) Creatinine 0.58 - 0.96 mg/dL 1.08 (H) 1.05 (H) 1.16 (H) Sodium 136 - 144 mmol/L 138 138 136 Potassium 3.7 - 5.1 mmol/L 3.7 4.1 4.1 Chloride 97 - 105 mmol/L 99 100 98 CO2 22 - 30 mmol/L 27 27 27 Anion Gap 9 - 18 mmol/L 12 11 11 eGFR >=60 mL/min/1.73m 53 (L) 54 (L) 48 (L) Component Latest Ref Rng & Units 05/16/2022 Breast CA 15-3 <26.0 U/mL 43.2 (H) CA27.29 <38.6 U/mL 38.9 (H) RADIOLOGY: CT chest 05/14/22: IMPRESSION: New right lower lobe pulmonary nodule. Metastatic disease cannot be excluded. Stable left lung nodule. CT abd/pelvis 05/14/22: IMPRESSION: No developing suspicious mass or adenopathy within the abdomen or pelvis ASSESSMENT/PLAN: 1. 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, estrogen receptor positive (HCC) - ICD9: 174.5, V86.0, ICD10: C50.512, Z17.0 (primary diagnosis) 2. Lung nodules - ICD9: 793.19, ICD10: R91.8 - Overall tolerating ibrance/aromasin well. - Reviewed labs/CT's with pt. New RLL lung nodule. - Continue current medications. - Proceed with next cycle of ibrance. - Follow up with PULM as scheduled. - CT chest in 9 weeks. - Follow up @ 11:30 with CBC/CMP/CA15-3/CA27.29 - Pt. aware to call office with any questions/concerns. The patient indicates understanding of these issues and agrees with the plan. All documentation from previous visit of 02/28/22-Dr. Thao/myself was copied and pasted, documentation has been reviewed and edited as necessary for today's visit. Nimisha Aleman APRN.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 documented in this encounter [facility] 05-21-2022 History of Present illness Narrative Chief Complaint Patient presents with: F/U 3 Month HPI Queenie Adan is a 77 year old female who presents here today for 3 month follow up. No bowel, Gi, or urinary issues. Hx of IPMN, managed by Dr. Gomez. S/p pancreatectomy/splenectomy in 2020. Hx of breast cancer in 1998. Is taking Aromasin 25 mg daily. Managed by oncology here in [place]. Notes that they found new lung nodule on right lung with recent CT scan. Bone scan normal. Recent CA levels elevated. Has follow up appointment with oncology on Thursday. Lipid: Taking Lipitor 40 mg daily half pill daily, tolerating well. Tries to watch diet, follows low carb diet. Goes to [facility] and exercise classes 2 times a week and exercises at home 2 x a week. Edema: Harsh legs; alternates 40 mg and 80 mg daily. Is on Potassium 20 mEq, alternating 2 pills and 4 pills a day. Prediabetes: Taking Metformin 500 mg 1 pill BID. Trying to follows low carb diet. Does not check BS at home. No neuropathy sx, no hypoglycemic episodes. Due for A1c. HTN: Denies any dizziness. Checking BP 2 x per day with readings 130/80-70. Taking Norvasc 5 mg daily, Ramipril 10 mg 1 pill BID, and Toprol xl 25 mg daily. Denies any further issues with harsh leg edema since decreasing dose. Follows with Cardio Dr. Daniela Chan for claudication, taking Eliquis 5 mg BID and Reclast injections. Chest tightness and SOB, pain on the right side off and on x 1 month. Notices it more in the mornings and when laying down. No pain with exertion and is able to use elliptical for 30 minutes 2 times per week. Denies radiation to neck/jaw, nausea, diaphoresis, SOB Takes Pepcid and symptoms resolve. CAMRYN: Uses CPAP nightly which is working well for her. Requesting referral for orthotics for history of fallen arches. Past medical history, appointments, medications, allergies reviewed. Previous Medical History PAST MEDICAL HISTORY Diagnosis Date A-fib ([facility]) Dr. Cody Breast cancer ([facility]) 1998 lobular, left side. Stage I, ER+/IN+/HER2-. Seeing Dr. Friend Chronic diastolic CHF (congestive heart failure) ([facility]) Coronary artery disease mild Elevated alkaline phosphatase level Falls frequently GERD (gastroesophageal reflux disease) HTN (hypertension) Hyperparathyroidism ([facility]) IPMN (intraductal papillary mucinous neoplasm) 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, estrogen receptor positive ([facility]) 01/09/2017 Osteoarthritis, knee Pancreatic cyst 11/2019 Pancreatitis PONV (postoperative nausea and vomiting) Prediabetes Recurrent seroma of breast S/P ablation of atrial fibrillation 2010 Sleep apnea on CPAP Vaginal dryness Varicose veins of both lower extremities Previous Surgical History PAST SURGICAL HISTORY Procedure Laterality Date ABLATION CATHETER 09/2014 venous ablation left GSV AFIB ABLATION/PULM VEIN ISOLATION 2010 APPENDECTOMY 1957 BREAST BIOPSY 1973 benign BREAST LUMPECTOMY HX Left 1998 left breast: 08/02 nodes; s/p Adj Chemo & Adj Radt CARDIAC CATHETERIZATION HX 07/2014 ostail LAD 35% COLONOSCOPY 06/2016 5 mm polyp. repeat in 5 years EXC CYST/ABERRANT BREAST TISSUE OPEN 1/> LESION 03/21/2020 EXCISION MALIGNANT LESIONS,TRUNK,ARMS,LEGS Left 03/11/2017 Re-Excision of Left Mast site: negative for cancer MASTECTOMY, SIMPLE, COMPLETE Left 02/12/2017 Left Compl Mast: pT1cNx, ER/IN+, HER2 Neg IDC w/Radial Margin MIDLINE INSERTION/CONSULT 08/17/2020 NIPPLE EXPLORATION Right 2013 ductal excision Right breast OTHER 2007 left knee ligament replacement OTHER 07/2020 Pancreatic surgery PAST SURGICAL HISTORY OF 11/2019 pancreatic cyst fluid removal REMOVE CATARACT, INSERT LENS,EX Bilateral Family History FAMILY HISTORY Problem Relation Age of Onset Breast Cancer Mother Heart Mother 95 Thyroid Mother Coronary Artery Disease Father 75 Prostate Cancer Brother pancreatic Prostate Cancer Brother Hypertension Brother Cancer Brother Mantle Cell Lymphnomas - dx last month Hypertension Brother Hypertension Brother Thyroid Brother Hypertension Brother Hypertension Brother Breast Cancer Maternal Aunt lived til 103 Patient Allergies 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 [place] [Hydrocodone-* Vomiting Penicillins Other: See Comments blisters Current Medications Current Outpatient Medications on File Prior to Visit Medication Sig atorvastatin (LIPITOR) 40 mg tablet Take 0.5 tablets by mouth once daily. furosemide (LASIX) 40 mg tablet Take 1 tablet by mouth every 48 hours AND 2 tablets every 48 hours. Alternate 40 mg daily with 80 mg daily. potassium chloride ER (K-DUR, KLOR-CON) 20 mEq tablet TAKE 2 TABLETS BY MOUTH EVERY 48 HOURS AND 4 TABLETS BY MOUTH EVERY 48 HOURS CPAP/BIPAP/OTHER Type .CPAPSettings into a note to see current settings/supplies/DME information. ramipril (ALTACE) 10 mg capsule Take 1 capsule by mouth twice daily. amLODIPine (NORVASC) 5 mg tablet Take 1 tablet by mouth once daily. exemestane (AROMASIN) 25 mg tablet Take 1 tablet by mouth once daily. TAKE AFTER A MEAL. zoledronic acid (RECLAST) 5 mg/100 mL pgbk PREMIX piggyback Inject 100 mL intravenously as directed. metFORMIN (GLUCOPHAGE) 500 mg tablet Take 1 tablet by mouth twice daily with meals. CPAP/BIPAP/OTHER Type .CPAPSettings into a note to see current settings/supplies/DME information. apixaban (ELIQUIS) 5 mg tab(s) Take 1 tablet by mouth twice daily. (restart 12/09/19) metoprolol succinate ER (TOPROL XL) 25 mg 24 hr tablet TAKE 1 TABLET BY MOUTH EVERYDAY AT BEDTIME CPAP/BIPAP/OTHER Type .CPAPSettings into a note to see current settings/supplies/DME information. acetaminophen (TYLENOL) 500 mg tablet Take 1,000 mg by mouth as needed. palbociclib (IBRANCE) 125 mg tablet Take 1 tablet (125mg) by mouth once daily for 21 days on then 7 days off. Take with or without food. biotin 5,000 mcg subl Dissolve 1 tablet under the tongue once daily. Famotidine-Ca Carb-Mag Hydrox (PEPCID COMPLETE) 10-800-165 mg chew Take 1 tablet by mouth once daily as needed. ervcr-pt-9-cmh-nxq-jrjubta-ast [id number] mg cap Take 1 tablet by mouth. cholecalciferol, vitamin D3, (VITAMIN D3 ORAL) Take 1,000 Units by mouth twice daily. vit A/vit C/vit E/zinc/copper (PRESERVISION AREDS ORAL) Take 1 tablet by mouth twice daily. CPAP Pressure changed in my office to Autopap 9.5-15 cm H2O, Heat Humidity & heated Tubing (JIMBO) suitable mask, [employer], opt Chinstrap, G47.33. (Patient taking differently: Pressure changed in my office to Autopap 5-8 cm H2O, Heat Humidity & heated Tubing (JIMBO) suitable mask, [employer], opt Chinstrap, G47.33.) gluc benitez/chondro benitez A/vit C/Mn (GLUCOSAMINE-CHONDROITIN COMPLX ORAL) Take 1 tablet by mouth once daily. Coenzyme Q10 300 mg cap Take 300 mg by mouth once daily. melatonin 3 mg Take 5 mg by mouth daily at bedtime. Current Facility-Administered Medications on File Prior to Visit Medication perflutren lipid microspheres 1.3 mL in NaCl (PF) 0.9% 10 mL injection (DEFINITY) sodium chloride 0.9 % (flush) 10 mL (BD POSIFLUSH) Social History Social History Tobacco Use Smoking status: Never Smokeless tobacco: Never Vaping Use Vaping Use: Never used Substance Use Topics Alcohol use: Yes Comment: rare, maybe one drink a month Drug use: No Review of Symptoms REVIEW OF SYSTEMS See HPI EXAM: BP 120/78 Pulse 68 Resp 16 Wt 65.5 kg (144 lb 6.4 oz) BMI 26.46 kg/m General Appearance: Well appearing, alert, in no acute distress, well-hydrated, well nourished.. Skin: Skin color, texture, turgor normal, no suspicious rashes or lesions. Lungs: Lungs clear to auscultation. No wheezing, rhonchi, rales.. Heart: RRR without murmur, gallop, or rubs. No ectopy. Abdomen: Abdomen soft. Bowel sounds normal. No masses, organomegaly. Positive for mild generalized TTP without guarding or rebound. Extremities: No deformities, edema, skin discoloration, clubbing or cyanosis. Good capillary refill. . Health Maintenance List SHINGRIX VACCINE(1 of 2) Never done BP CONTROLLED (<130/80) due on 04/11/2020 ADVANCE DIRECTIVE DISCUSSION Never done DEPRESSION ASSESSMENT Never done COVID-19 VACCINE(5 - Booster for Moderna series) due on 01/07/2022 INFLUENZA(1) due on 02/20/2022 LDL CHOLESTEROL due on 11/15/2022 ANNUAL PCP TEAM CHRONIC DISEASE VISIT due on 02/14/2023 DIABETES SCREEN due on 02/28/2025 DTAP,TDAP,TD(2 - Td or Tdap) due on 08/05/2028 BONE DENSITY Completed HEPATITIS C SCREENING Completed PNEUMOCOCCAL: 65+ Completed Data reviewed Component Latest Ref Rng & Units 05/14/2022 05/16/2022 WBC 3.70 - 11.00 k/uL 3.22 (L) RBC 3.90 - 5.20 m/uL 3.13 (L) Hemoglobin 11.5 - 15.5 g/dL 11.6 Hematocrit 36.0 - 46.0 % 34.0 (L) MCV 80.0 - 100.0 fL 108.6 (H) MCH 26.0 - 34.0 pg 37.1 (H) MCHC 30.5 - 36.0 g/dL 34.1 RDW-CV 11.5 - 15.0 % 15.9 (H) Platelet Count 150 - 400 k/uL 310 MPV 9.0 - 12.7 fL 8.8 (L) NRBC /100 WBC 0.0 Absolute nRBC <0.01 k/uL <0.01 Neut% % 39.0 Abs Neut (ANC) 1.45 - 7.50 k/uL 1.26 (L) Lymph% % 44.0 Abs Lymph 1.00 - 4.00 k/uL 1.42 Nicholas% % 7.0 Abs Nicholas <0.87 k/uL 0.23 Eosin% % 3.0 Abs Eosin <0.46 k/uL 0.10 Baso% % 7.0 Abs Baso <0.11 k/uL 0.23 (H) Platelet Estimate Adequate Red Cell Morph Reviewed: see results of individual morphologies Anisocytosis Present Ovalocytes Few RBC Fragments None Seen Few (A) Target Cells Few DTYPE Manual Protein, Total 6.3 - 8.0 g/dL 7.4 7.4 Albumin 3.9 - 4.9 g/dL 4.7 4.8 Calcium 8.5 - 10.2 mg/dL 9.6 9.9 Bilirubin, Total 0.2 - 1.3 mg/dL 0.7 0.7 Alkaline Phosphatase 34 - 123 U/L 149 (H) 164 (H) AST 13 - 35 U/L 19 18 ALT 7 - 38 U/L 12 13 Glucose 74 - 99 mg/dL 78 134 (H) BUN 7 - 21 mg/dL 29 (H) 36 (H) Creatinine 0.58 - 0.96 mg/dL 1.05 (H) 1.16 (H) Sodium 136 - 144 mmol/L 138 136 Potassium 3.7 - 5.1 mmol/L 4.1 4.1 Chloride 97 - 105 mmol/L 100 98 CO2 22 - 30 mmol/L 27 27 Anion Gap 9 - 18 mmol/L 11 11 eGFR >=60 mL/min/1.73m 54 (L) 48 (L) CK 42 - 196 U/L 115 Breast CA 15-3 <26.0 U/mL 43.2 (H) CA27.29 <38.6 U/mL 38.9 (H) Component Latest Ref Rng & Units 11/15/2021 Cholesterol, Total <200 mg/dL 137 Triglyceride <150 mg/dL 64 HDL Cholesterol >39 mg/dL 55 Non HDL Cholesterol <130 mg/dL 82 Fasting Time hrs 12 VLDL Cholesterol <30 mg/dL 13 TC:HDL Ratio <5.10 2.49 LDL Cholesterol <100 mg/dL 69 LDL:HDL Ratio <2.54 1.25 ASSESSMENT/PLAN: 1. Lung nodule seen on imaging study - ICD9: 793.11, ICD10: R91.1 (primary diagnosis) New finding on recent imaging. CA levels elevated. Bone scan negative. Recommend she keep f/u with oncology in 2 days and will f/u their results. 2. Stage 1 breast cancer, ER+, left (HCC) - ICD9: 174.9, V86.0, ICD10: C50.912, Z17.0 Continue Aromasin. Mammogram in February was negative/normal. F/u with oncology. 3. Essential hypertension - ICD9: 401.9, ICD10: I10 - good control - Continue current medication(s) - Encouraged dietary sodium restriction/DASH diet - Recommended regular aerobic exercise. - Reviewed risks of HTN and principles of treatment - Goal of BP <130/80 - AMLODIPINE 5 MG TABLET 4. Gastroesophageal reflux disease without esophagitis - ICD9: 530.81, ICD10: K21.9 - Discussed lifestyle modifications including limiting caffeine, no meals three hours before sleep, and head of bed elevation - Continue treatment with Pepcid 20 mg PRN 5. Prediabetes - ICD9: 790.29, ICD10: R73.03 Recheck A1c. Continue metformin and work on low carb diet with exercise as tolerated. - HGB A1C 6. Atrial fibrillation, chronic (HCC) - ICD9: 427.31, ICD10: I48.20 Asymptomatic on medical management. Rate controlled on Toprol XL. Continue anticoagulation and f/u with cardiology. - APIXABAN 5 MG TABLET 7. Coronary artery disease involving t[place] apache coronary artery of t[place] heart with angina pectoris (HCC) - ICD9: 414.01, 413.9, ICD10: I25.119 Patient with c/o chest pain with lying down which is improved with pepcid. No reproducible pain on exam. Recent chest imaging showed new nodule. Denies typical angina. Will have her continue medical management and f/u with cardiology. Red flags for re-assessment reviewed with patient in detail. 8. CAMRYN (obstructive sleep apnea) - ICD9: 327.23, ICD10: G47.33 Continue nightly CPAP use. 9. Hyperlipidemia, mixed - ICD9: 272.2, ICD10: E78.2 - good control - Continue current medication. - Encouraged following a low fat, low cholesterol diet. - Discussed the benefits of regular aerobic exercise and weight loss. 10. Chronic diastolic CHF (congestive heart failure) (HCC) - ICD9: 428.32, 428.0, ICD10: I50.32 Doing well with medical management. F/u with cardiology. 11. Fallen arches - ICD9: 734, ICD10: M21.41, M21.42 Referral as requested for orthotics. - CONSULT TO PODIATRY I spent a total of 40 minutes on the date of the service which included preparing to see the patient, [id number] patient care, completing clinical documentation, obtaining and/or reviewing separately obtained history, performing a medically appropriate examination, counseling and educating the patient/family/caregiver, and ordering medications, tests, or procedures. Tala Negron MD documented in this encounter [facility] 05-16-2022 History of Present illness Narrative RADIOLOGY SERVICE PROGRESS NOTE SERVICE DATE: 05/16/2022 SERVICE TIME: 07:35 AM PATIENT IDENTITY VERIFICATION COMPLETED USING TWO (2) STANDARD IDENTIFIERS: Name and Date of confirmed by patient verbally FALL SCREENING: Has the patient had 2 falls in the last year or 1 fall with injury or currently using an Ambulatory Assistive Device (Walker, Cane, Wheelchair, Crutches, etc.)? No PATIENT GENDER DATA: .female : No ALLERGIES: Reviewed and unchanged MEDICATIONS REVIEWED: No PATIENT RELEVANT IMPLANT DATA REVIEWED: Not Applicable CREATININE: Creatinine Date Value Ref Range Status 05/16/2022 1.16 (H) 0.58 - 0.96 mg/dL Final 05/14/2022 1.05 (H) 0.58 - 0.96 mg/dL Final 02/28/2022 1.08 (H) 0.58 - 0.96 mg/dL Final Estimated Glomerular Filtration Rate Date Value Ref Range Status 05/16/2022 48 (L) >=60 mL/min/1.73m Final Comment: Estimated Glomerular Filtration Rate (eGFR) is calculated using the 2020 CKD-EPI creatinine equation. This equation utilizes serum creatinine, sex, and age as parameters. The creatinine assay has traceable calibration to isotope dilution-mass spectrometry. Refer to KDIGO guidelines for clinical interpretation. In patients with unstable renal function, e.g. those with acute kidney injury, the eGFR may not accurately reflect actual GFR. eGFR- Date Value Ref Range Status 07/12/2021 >60 Final P.O.C.T. RESULTS: N/A May 16, [address] PERFORMED: No IV SITE: Ambulatory: A peripheral IV was started in the Right forearm with a Angio cath: 24 gauge. POST EXAM PIV STATUS: Discontinued PROCEDURE TYPE: NM INJECT: Whole Body Bone Scan. 21.3 mCi Tc99m MDP. No other medications given.. ADMINISTRATION TIME: 07:45 PATIENT DISCHARGED TO: Ambulatory patient, left [place] department area. A Diagnostic radioactive procedure has taken place, with no further precautions necessary other than routine body substance precautions. More information regarding radiation safety can be found using this link: [email or web address] SIGNATURE: WILLIE Grey PATIENT NAME: Queneie Adan DATE: May 16, 2022 TIME: 10:38 AM PAGER/CONTACT #: documented in this encounter [facility] 03-21-2022 History of Present illness Narrative PRIMARY CARE COORDINATION QUICK NOTE Provider Action/FYI Chart reviewed, goals, falls, adl's updated. Patient identified by name and date . documented in this encounter [facility] 03-18-2022 Miscellaneous Notes I spoke with patient regarding upcoming CT Chest scheduled for 04/01/22. There will be no need for this CT scan. Recent CT Chest in January showed stability of nodules and no mediastinal or hilar lymphadenopathy. The patient states per her oncology team, she has CT Chest/abd/pelvis and bone scan scheduled Q3 months due to metastatic breast cancer. Her next CT appointments are scheduled for 05/16/22. I let her know that we will follow up with a virtual visit after the CT scan is completed. At that time, we will review her results and determine if continued follow up with pulmonary team is necessary. The patient verbalized her understanding and is in agreement with the plan. I will send a request to the scheduling team to help set up a virtual appointment for early May. Esperanza Yoo APRN.CNP documented in this encounter [facility] 03-10-2022 Miscellaneous Notes March 10, 2022 PID: [id number] Queenie Caro Orquidea Adan [address] [place] [address] Dear Apolonia Adan, We are pleased to inform you that the results of your recent breast imaging exam on 03/10/2022 are normal. Early detection of cancer is very important. We also understand recommendations regarding breast cancer screening are controversial. Please discuss with your primary care provider which strategy is best for you and whether a mammogram is right for you. Your imaging studies and report will be kept on file at [facility] as part of your permanent medical record and are available for your continuing care. Thank you for allowing us to help in meeting your health care needs. Sincerely, Dr. Zapata Interpreting Radiologist [facility] (Normal over 40) documented in this encounter [facility] 02-28-2022 History of Present illness Narrative Chief Complaint Patient presents with: Established Patient HPI: Queenie Adan is a 77 year old female who presents here today for evaluation for next cycle of ibrance. Per Dr. Thao's previous note: H/o breast cancer, atrial fibrillation, coronary artery disease, hypertension, diastolic CHF, obstructive sleep apnea, GERD and pancreatic cyst. 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 2 of 12 nodes were positive. She underwent lumpectomy followed by adjuvant chemotherapy with AC followed by T. She then received adjuvant radiation followed by tamoxifen for 5 years. She was then diagnosed with a new primary breast cancer in the ipsilateral breast. She underwent mastectomy for what proved to be a [id number] ER+/IN+/HER2- breast cancer. The tumor was 1.6 cm. It was grade 3. Lymph nodes were not obtained secondary to her previous surgery. There was a positive radial margin and she underwent repeat excision of the margin with the pathology demonstrating fat necrosis but no malignant tissue. She was on anastrozole from May 2017 through January 2018. 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 Has h/o hypercalcemia dating to at least 07/24/2017. Found to have dilated pancreatic duct on US 08/2018 done for increased alk phos. CT Pancreas 09/10/2018: Pancreatic ductal dilatation with abrupt transition of duct caliber consistent with pancreatic ductal stricture. Different considerations includes benign and malignant stricture. Recommend further characterization with contrast-enhanced MR of the pancreas. MRI could also characterize the subcentimeter pancreatic head density noted in results. Right hepatic lobe low-attenuation density consistent with cysts noted on ultrasound. Subcentimeter LEFT hepatic lobe density most likely benign. Cardiomegaly. MRI Pancreas 09/14/2018: Significant dilation of the main pancreatic duct measuring up to 1.5 cm with associated multiple dilated sidebranches. Abrupt cut off within the neck and normal caliber of the main duct within the head. Benign or malignant stricturing would be the primary consideration. Endoscopic workup recommended. Mild central intrahepatic and extrahepatic biliary dilation. No choledocholithiasis. No adenopathy. EGD/EUS 10/12/2018: 20 mm cystic lesion was seen in the pancreatic body non-communicating with main duct. Fine needle aspiration for fluid performed. Pathology--no formal pathology or cytology, but fluid CEA normal but amylase significantly elevated. Repeat EGD/EUS 12/01/2019: Cyst 25 x 14 mm. Pathology: Very limited sample. Negative for malignant cells. MRI Pancreas 01/03/2020: Marked main pancreatic ductal dilation up to 1.7 cm in the body/tail with associated atrophy, mildly increased since 09/14/2018, with abrupt caliber change in the neck without associated mass. Multiple dilated side branches orcommunicating cysts are also unchanged or mildly increased. Differential considerations include a segmental main duct IPMN or stricture (i.e. from a prior episode of pancreatitis). She was advised to began exemestane in January 2019, but did not. Component Latest Ref Rng & Units 02/02/2018 08/26/2018 12/04/2019 12/05/2019 12/09/2019 12/09/2019 12/13/2019 12/30/2019 9:28 AM 9:28 AM Protein, Total 6.3 - 8.0 g/dL 7.1 7.5 6.1 (L) 6.0 (L) 7.2 7.1 7.4 Albumin 3.9 - 4.9 g/dL 4.7 4.6 3.6 (L) 3.5 (L) 4.1 4.2 4.3 Calcium 8.5 - 10.2 mg/dL 10.6 (H) 10.9 (H) 9.7 9.5 10.5 (H) 10.7 (H) 10.6 (H) Bilirubin, Total 0.2 - 1.3 mg/dL 0.9 0.9 1.3 1.4 (H) 0.7 0.7 0.6 Alkaline Phosphatase 34 - 123 U/L 127 (H) 146 (H) 159 (H) 187 (H) 215 (H) 217 (H) 203 (H) AST 13 - 35 U/L 25 24 15 16 26 25 39 (H) Glucose 74 - 99 mg/dL 83 102 (H) 111 (H) 86 89 94 103 (H) BUN 7 - 21 mg/dL 16 19 10 8 11 11 18 Creatinine 0.58 - 0.96 mg/dL 0.76 0.79 0.48 (L) 0.53 (L) 0.69 0.67 0.70 Sodium 136 - 144 mmol/L 139 142 140 141 140 141 140 Potassium 3.7 - 5.1 mmol/L 4.2 3.9 3.6 (L) 3.2 (L) 4.1 4.3 4.1 Chloride 97 - 105 mmol/L 99 103 103 102 100 100 100 CO2 22 - 30 mmol/L 23 28 24 26 30 29 26 Anion Gap 9 - 18 mmol/L 17 11 13 13 10 12 14 ALT 7 - 38 U/L 22 20 23 26 23 23 38 eGFR- >60 >60 >60 >60 >60 >60 >60 eGFR-All Other Races . >60 >60 >60 >60 >60 >60 >60 PTH, Intact 15 - 65 pg/mL 58 PTH Related Peptide 0.0 - 3.4 pmol/L 4.3 (H) CA19-9 <36 U/mL 18 Whole-body bone scan on 12/22/2019 demonstrated no suspicious area of radiotracer uptake suggesting metastatic disease to the bones. PET 01/24/2020: NECK: No FDG avid neoplastic process. No mass, adenopathy, or fluid collection. CHEST: Status post left mastectomy. Small non hypermetabolic fluid attenuation density in the left anterior chest wall/breast in the subcutaneous tissues, abutting the skin. Differential considerations include possible small focus of recurrence, infected/inflamed sebaceous cyst. Mammogram/ultrasound of the left breast may be of help for further evaluation. ABDOMEN/PELVIS: No FDG avid neoplastic process. No mass, adenopathy, or fluid collection. EXTREMITIES/SKELETON: No FDG avid osseous process. No destructive/traumatic bony abnormality. Previous therapy for breast cancer: 1) AC followed by T. 2) Anastrozole. 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 Pathology: Left mastectomy skin, incision site marked #1, excision (A) - Stromal scar with foreign body giant cell reaction. 2. Left mastectomy skin, area marked #2, excisional biopsy (B) - Invasive ductal carcinoma involving dermis and subcutaneous tissue (please see comment). COMMENT 2. The invasive carcinoma is estimated to involve an area measuring 1.2 cm and is present at the periphery of the tissue edges. The invasive carcinoma is a Marilyn Grade 3; definitive dermal angiolymphatic space invasion is not identified. Immunohistochemical stains for estrogen and progesterone receptors, as well as HER2 will be performed and the results reported separately. Estrogen Receptor (ER) Positive (99%) Average stain intensity: Strong Status of internal controls: Internal control cells absent External controls: Appropriately reactive Progesterone Receptor (PgR) Positive (50%) Average stain intensity: Moderate Status of internal controls: Internal control cells absent External controls: Appropriately reactive HER2 (ERBB2) IMMUNOHISTOCHEMISTRY ASSAY Interpretation: NEGATIVE for HER2 (ERBB2) Expression Score: 1+ Subsequently underwent parathyroid exploration where she was found to have 4 gland hyperplasia with enlarged abnormal appearing glands. The right lower gland was smallest and appeared most normal so that was left as a remnant. The other 3 glands were excised. Pathology: A. Parathyroid gland, right upper, parathyroidectomy - Mildly hypercellular parathyroid. B. Parathyroid gland, left upper, parathyroidectomy - Focally hypercellular parathyroid. C. Parathyroid gland, right lower, parathyroidectomy - Normocellular parathyroid. Presents for ongoing oncologic management. Underwent reexcision on 03/21. Pathology: Left breast, ductal mass, excision - Invasive ductal carcinoma, clinically recurrent, Marilyn grade 2, measuring 8 mm in greatest dimension (please see comment and synoptic report). - Large organizing hematoma and stromal scar. - Biopsy site reparative changes. EDK/edk 03/27/2020 COMMENT The prior excisional biopsy ([id number]) contained a 12 mm focus of invasive ductal carcinoma. As such, the final pT assignment is pT1c. SYNOPTIC REPORT OF [facility] FINDINGS DUCTAL MASS, LEFT BREAST: BREAST INVASIVE CARCINOMA WORKSHEET Part: A Procedure: Excision (less than total mastectomy) Specimen Laterality: Left Tumor size: Size of largest invasive carcinoma: Greatest dimension of largest focus of invasion >1 mm: 8 mm Tumor Focality: Single focus of invasive carcinoma Histologic Type of Invasive Carcinoma: Invasive carcinoma of no special type (ductal, not otherwise specified) Histologic Grade: Glandular (Acinar) / Tubular Differentiation: Score 3 Nuclear Pleomorphism: Score 2 Mitotic Rate: Score 1 Overall Grade: Grade II Ductal Carcinoma In Situ: Not identified Tumor Extension: Skin: Invasive carcinoma directly invades into the dermis or epidermis without skin ulceration (this does not change the T classificationof invasive carcinomas) Nipple: Not applicable, no nipple is present Skeletal muscle: Free of carcinoma Invasive Carcinoma Margins: Margins uninvolved by invasive carcinoma Distance from closest margin: 9 mm Closest margin: Deep DCIS Margins: Not applicable (no DCIS in specimen) Lymph Nodes: No lymph nodes submitted or found Treatment Effect: No known presurgical therapy Lymph-Vascular Invasion: Not identified Pathologic Stage Classification (pTNM,AJCC 8th ed) TNM Descriptor(s): r (recurrent) Primary Tumor (Invasive Carcinoma) (pT): pT1c Regional Lymph Nodes (pN): Modifier: Not applicable Category (pN): pNX Distant metastasis: Distant Metastasis (pM) Not applicable/Not confirmed pathologically in this case Estrogen & progesterone receptors: Previously performed and reported as follows: Estrogen receptor: Positive (99%, strong) Progesterone receptor: Positive (50%, moderate) Specimen number #: [id number] (HER2) ERBB2 Status: Previously performed and reported as follows: HER2:Negative (1+) Previous therapy for metastatic breast cancer: 1) RT to chest wall completed 06/12/2020. Current therapy for metastatic breast cancer: 1) Exemestane. Began 2019 2) Palbociclib. 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 Vikram Gomez. Discharged on 08/10/20. Pt. went to ED on 08/15/20 for chest pain, +ST elevation, once transported to [facility] an immediate catherization was done-no significant coronary artery stenosis-no occlusion. Admitted for STEMI vs. pancreatitis on 08/15/20-08/21/20. Bronch negative for malignant cells on 12/26/20. Last day of this cycle was Thursday. Pt. scheduled to start next cycle next . Appetite: I'm struggling. Things that I used to like just doesn't taste good. Wt. down 2# Energy level: I'm struggling. I sleep really well. Exercises daily. Denies fevers or recent illness. Resp:denies cough or sob, occ. walker, uses CPAP-followed by PULM Cardiac:denies chest pain/occ. palpitations/h/o A. fib-followed by cardiology GI:denies abd pain, occ. gerd, denies n/v, moving bowels regularly :denies dysuria/hematuria Extrem:denies pain elsewhere Endo:denies hot flashes Neuro:denies symptoms of neuropathy Skin:denies rashes/lesions Heme:denies bleeding The ROS is otherwise negative. Past medical history, appointments, medications, allergies reviewed. No changes. EXAM: BP 134/65 Pulse 62 Temp 37.3 C (99.2 F) Ht 157.4 cm (5' 1.95 ) Wt 64 kg (141 lb) SpO2 99% BMI 25.84 kg/m APPEARANCE Well appearing, alert, in no acute distress, well-hydrated, well nourished. HEART RRR with normal S1 and S2, no murmurs LUNG clear to auscultation LYMPH NODES No cervical lymphadenopathy, No supraclavicular lymphadenopathy, and No axillary lymphadenopathy. ABDOMEN bowel sounds normoactive, soft, non-tender, non-distended, without organomegaly or palpable masses, no tenderness to palpation EXTREMITIES No edema NEURO Awake, alert and oriented x 3, Normal gait, and No involuntary motions. SKIN Skin color, texture, turgor normal, no suspicious rashes or lesions LABS: Component Latest Ref Rng & Units 10/14/2021 11/07/2021 02/28/2022 WBC 3.70 - 11.00 k/uL 5.42 3.30 (L) 3.35 (L) RBC 3.90 - 5.20 m/uL 3.07 (L) 3.10 (L) 3.28 (L) Hemoglobin 11.5 - 15.5 g/dL 11.1 (L) 11.6 12.3 Hematocrit 36.0 - 46.0 % 32.6 (L) 33.5 (L) 34.9 (L) MCV 80.0 - 100.0 fL 106.2 (H) 108.1 (H) 106.4 (H) MCH 26.0 - 34.0 pg 36.2 (H) 37.4 (H) 37.5 (H) MCHC 30.5 - 36.0 g/dL 34.0 34.6 35.2 RDW-CV 11.5 - 15.0 % 16.3 (H) 16.7 (H) 16.2 (H) Platelet Count 150 - 400 k/uL 435 (H) 206 168 MPV 9.0 - 12.7 fL 9.6 9.3 8.9 (L) Neut% % 48.6 41.6 38.7 Abs Neut (ANC) 1.45 - 7.50 k/uL 2.64 1.37 (L) 1.30 (L) Lymph% % 32.5 37.0 47.2 Abs Lymph 1.00 - 4.00 k/uL 1.76 1.22 1.58 Nicholas% % 11.3 14.8 7.8 Abs Nicholas <0.87 k/uL 0.61 0.49 0.26 Eosin% % 4.2 2.7 2.7 Abs Eosin <0.46 k/uL 0.23 0.09 0.09 Baso% % 3.0 3.6 3.3 Abs Baso <0.11 k/uL 0.16 (H) 0.12 (H) 0.11 (H) Immature Gran % % 0.4 0.3 0.3 IMMATURE GRANS (ABS) <0.10 k/uL <0.03 <0.03 <0.03 NRBC /100 WBC 0.0 0.0 0.0 Absolute nRBC <0.01 k/uL <0.01 <0.01 <0.01 DTYPE Auto Auto Auto CMP: Pending ASSESSMENT/PLAN: 1. 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, estrogen receptor positive (HCC) - ICD9: 174.5, V86.0, ICD10: C50.512, Z17.0 (primary diagnosis) 2. 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 Lung nodules - ICD9: 793.19, ICD10: R91.8 - Overall tolerating ibrance/aromasin well. - Reviewed CBC with pt. - CMP pending. - Needs mammogram. - Pt. will my chart for PULM appt. - Continue current medications. - Proceed with next cycle of ibrance-pending today's labs. - CT chest/abd/pelvis/bone scan week of . - Follow up May 23 @12:30 with CBC/UOCFZ50-7/CA27.29 - Pt. aware to call office with any questions/concerns. The patient indicates understanding of these issues and agrees with the plan. All documentation from previous visit of 11/11/21-Dr. Thao/myself was copied and pasted, documentation has been reviewed and edited as necessary for today's visit. Nimisha Aleman APRN.CNP documented in this encounter [facility] 02-17-2022 Instructions Kizzy Ayala APRN.CNP - 02/17/2022 10:10 PM EDT PAP Supply Guidelines Below are the guidelines for reordering your supplies. You will be responsible for your deductible, co-payments, and out of pocket expenses. Item Medicare & Commercial Insurance Medicaid & HCAP Nasal Mask (no headgear) 1 every 3 months 1 per year Nasal Mask Cushion 1 every month 2 per year Full Face Mask (no headgear) 1 every 3 months 1 per year Full Face Mask Cushion 1 every month *Self-Pay Nasal Pillows 2 every month 2 per year Headgear 1 every 6 months 1 per year Chin Strap 1 every 6 months 2 per year Tubing 1 every 3 months 1 per year Filters: Reusable 1 every 6 months 4 per year Filters: Disposable 2 every month 1 per month Humidifier Chamber(disposable) 1 every 6 months *Self-Pay documented in this encounter [facility] 02-17-2022 History of Present illness Narrative Images from the original note were not included. [facility] Follow up/ Established patient visit Date of last visit : 08/19/2021 Per last visit: IMPRESSION: Diagnosis: Camryn (obstructive sleep apnea) (primary encounter diagnosis) Atrial fibrillation, chronic (hcc) Chronic diastolic chf (congestive heart failure) (hcc) Coronary artery disease involving [place] coronary artery of [place] heart with angina pectoris (hcc) Pulmonary hypertension ([facility]) S/p ablation of atrial fibrillation Sinus pause Valvular heart disease Sleep Studies (Reviewed Prior and Current): Polysomnogram performed on 01/11/2019 revealed severe CAMRYN (Total AHI 65.4, Off-Supine AHI 43.6, Supine AHI 65.4) that was associated with a minimum O2 saturation of 72%. Respiratory events consisted of obstructive apneas, hypopneas, and RERAs. The severity of this sleep related breathing disorder may be underestimated due to the presence of mild flow and effort decrements associated with arousal and/or oxygen desaturation not meeting established CMS respiratory event criteria. 2. Atrial fibrillation on limited channel EKG recording. PSG Split Night Study 07/04/2021 revealed severe CAMRYN (AHI of 62.9) that was associated with a minimum O2 saturation of 82%. 1. The patient used her oral appliance during the diagnostic portion of the study and the AHI was 62.9 with the oral appliance in place, demonstrated lack of efficacy of the oral appliance. 2. The decision was made to split the patient onto CPAP given the elevated AHI with the oral appliance in place. PAP titration was done with the oral appliance in place. 3. During the PAP titration portion, at CPAP 7 and 8 cmH2O the AHI was normalized and the oxygen saturation was maintained above 88%. At CPAP 9 and 10 cmH2O the patient began to experience central apneas that appeared to be treatment emergent, but also had the appearance of Hair Hay breathing pattern. Atrial fibrillation was noted. RECOMMENDATIONS: Auto-titrating CPAP 5-8 cmH2O with humidification and with concurrent use of oral appliance. Close clinical follow up with data download after 1 month to ensure tolerance, efficacy, and compliance. Would consider full night PAP titration study with Bilevel PAP, possible addition of back rate, and/or ASV if significant central events are noted on the download. Overview: Ms. Queenie Adan is a 76 year old male with a PMH of CAMRYN, Atrial Fibrillation, S/P Ablation of Atrial Fibrillation, CHF, CAD, Pulmonary HTN, Sinus Pause, Valvular Heart Disease who presents via office visit for PSG Split Night Study results. Discussed PSG Split Night Study 07/04/2021 which revealed severe CAMRYN (AHI of 62.9) that was associated with a minimum O2 saturation of 82%. 1. The patient used her oral appliance during the diagnostic portion of the study and the AHI was 62.9 with the oral appliance in place, demonstrated lack of efficacy of the oral appliance. 2. The decision was made to split the patient onto CPAP given the elevated AHI with the oral appliance in place. PAP titration was done with the oral appliance in place. 3. During the PAP titration portion, at CPAP 7 and 8 cmH2O the AHI was normalized and the oxygen saturation was maintained above 88%. At CPAP 9 and 10 cmH2O the patient began to experience central apneas that appeared to be treatment emergent, but also had the appearance of Hair Hay breathing pattern. Atrial fibrillation was noted. RECOMMENDATIONS: Auto-titrating CPAP 5-8 cmH2O with humidification and with concurrent use of oral appliance. When Luciana here in [place] reset her PAP machine it erased window. This is very upsetting to her. She likes to wake up and see what her events were the night before. My nurse, Cullen, at [place] may be able to assist her. She likes downtown [place]; so will send a Celect message when she heads this way and will ask Cullen to look at her machine. See if we can restore her window. Also with some complaints of irritation behind her ears. Little scabby. She will be leaving soon to go to [place] X 3 weeks. She has another PAP machine there too and it needs reset to auto-titrating CPAP 5-8 cmH2O with humidification and with concurrent use of oral appliance. She has requested a script be mailed to her that she can give to [facility] in [place]; so machine can be reset. Plan: 1) Continue Auto CPAP at 5-8 cmH2O. - Remember to clean your mask and equipment regularly, as directed. - You should be eligible for new supplies approximately every 3-6 months, depending on your insurance coverage. Contact your Durable Medical Equipment (DME) company for new supplies as needed. 2) Dental appliance continues to be adjusted and patient may need a repeat PSG in the future to see if it is effective. 3) Script mailed out to patient to have AutoPAP adjusted to 5-8 cmH20 (machine in [place]). 4) Message sent to Cullen about looking at patient's machine here in [place] when she visits [place]. Luciana erased her window on her machine and she likes to see what her events were the night prior. Cullen may be able to reset window. 5) Use a little bit of Bacitracin or Vaseline on the ears to help the irritation. - Follow up in 6 months or sooner with Kizzy Ayala CNP. If you have questions, feel free to send me a Celect message or contact [place] office at [phone] (after hours, leave message at [phone]). I spent a total of 40 minutes as this was an established patient to me on the date of the service which included preparing to see the patient, [id number] patient care, completing clinical documentation, counseling and educating the patient/family/caregiver and ordering medications, tests, or procedures. Kizzy Ayala APRN.EUNICE Interval history : Here for follow up for CAMRYN (APAP 5-8 cmH20) and MAD. SLEEP APNEA Sleep apnea type : CAMRYN, Most Recent Apnea-Hypopnea Index (AHI): AHI of 62.9 Treatment : PAP therapy DME: [facility] PAP History: Uses AutoPAP for 8 hours per night, 7 nights per week. Current PAP settin-8 cm H2O. Difficulties with AutoPAP: None Reviewed objective PAP compliance data: Device interrogated in room. RespirSmarp Oy DreamStation 2 Advanced Pressure 5-8 cmH20 Mode - Auto Usage days (100%) >= 4 hours - (100%) Average # hours nights used - 8.18 Pressure 90th % - 7.5 cmH20 Average time in large leak per day - 00:00:00 Residual AHI - 5.4 Mask type: Nasal pillow interface Mask issues: Air leak Uses chin strap: No Uses ramp function: Yes Uses humidity: Yes, Protocol: Distilled water. There is a perceived benefit by the patient: I am totally addicted to it. Pancreatic surgery done 1.5 years ago. Observers report abolition of snoring and respiratory events with AutoPAP use. ------- SLEEP HYGIENE QUESTIONS: Bedtime : 3924-8722 Wake up Time : 1412-1795 Going to the gym twice a week. Time it takes to fall sleep : Not very long. Activities in bed before falling asleep : Reading in bed or listening to something at night. Number of times patient wakes up per night : 1 Reason (s) why patient wakes up during the night : Void Estimated total sleep time ( in a 24 hour period of time) : 8 Naps : Yes, Thursday afternoon, 2 hours, does not feel worse PATIENT-ENTERED QUESTIONNAIRE SLEEP SCORES Sleep Questions 02/14/2022 Reason for visit: Sleep apnea, Excessive daytime sleepiness Average hours slept in 24 hours: 8 Average hours of CPAP per night: 8.5 Percent of nights CPAP used at least 4 hours: 100 Accidents or near accidents due to drowsy drivin [place] Sleepiness Scale 06/26/2021 08/15/2021 02/14/2022 Score 11 (present daytime sleepiness) 9 (No daytime sleepiness) 13 (present daytime sleepiness) PROMIS CAT Sleep Disturbance 06/26/2021 08/15/2021 02/14/2022 PROMIS Sleep Disturbance T-Score 40 (within normal limits) 43 (within normal limits) 48 (within normal limits) Restless Leg Syndrome 02/14/2022 Score Incomplete PHQ-9 08/15/2021 11/20/2021 02/14/2022 Score 1 3 5 PROMIS Global Health - (T-Scores - the mean of general population = 50. Five points is a clinically meaningful difference.) 11/02/2021 11/07/2021 02/13/2022 Physical T-Score 44.9 39.8 50.8 Mental T-Score 53.3 53.3 50.8 PMH, PSH, SH: Reviewed SLEEP RELATED ROS Review of Systems Constitutional: Positive for fatigue. Respiratory: Negative. Cardiovascular: Positive for palpitations. Genitourinary: Negative. 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 [place] [Hydrocodone-* Vomiting Penicillins Other: See Comments blisters CURRENT MEDICATIONS: potassium chloride ER (K-DUR, KLOR-CON) 20 mEq tablet TAKE 2 TABLETS BY MOUTH EVERY 48 HOURS AND 4 TABLETS BY MOUTH EVERY 48 HOURS ramipril (ALTACE) 10 mg capsule Take 1 capsule by mouth twice daily. amLODIPine (NORVASC) 5 mg tablet Take 1 tablet by mouth once daily. exemestane (AROMASIN) 25 mg tablet Take 1 tablet by mouth once daily. TAKE AFTER A MEAL. furosemide (LASIX) 40 mg tablet Take 1 tablet by mouth every 48 hours AND 2 tablets every 48 hours. Alternate 40 mg daily with 80 mg daily. zoledronic acid (RECLAST) 5 mg/100 mL pgbk PREMIX piggyback Inject 100 mL intravenously as directed. metFORMIN (GLUCOPHAGE) 500 mg tablet Take 1 tablet by mouth twice daily with meals. CPAP/BIPAP/OTHER Type .CPAPSettings into a note to see current settings/supplies/DME information. apixaban (ELIQUIS) 5 mg tab(s) Take 1 tablet by mouth twice daily. (restart 12/09/19) metoprolol succinate ER (TOPROL XL) 25 mg 24 hr tablet TAKE 1 TABLET BY MOUTH EVERYDAY AT BEDTIME CPAP/BIPAP/OTHER Type .CPAPSettings into a note to see current settings/supplies/DME information. acetaminophen (TYLENOL) 500 mg tablet Take 1,000 mg by mouth as needed. palbociclib (IBRANCE) 125 mg tablet Take 1 tablet (125mg) by mouth once daily for 21 days on then 7 days off. Take with or without food. biotin 5,000 mcg subl Dissolve 1 tablet under the tongue once daily. Famotidine-Ca Carb-Mag Hydrox (PEPCID COMPLETE) 10-800-165 mg chew Take 1 tablet by mouth once daily as needed. pvcjv-kn-1-kuv-fih-ekgiecj-ast [phone] mg cap Take 1 tablet by mouth. cholecalciferol, vitamin D3, (VITAMIN D3 ORAL) Take 1,000 Units by mouth twice daily. vit A/vit C/vit E/zinc/copper (PRESERVISION AREDS ORAL) Take 1 tablet by mouth twice daily. CPAP Pressure changed in my office to Autopap 9.5-15 cm H2O, Heat Humidity & heated Tubing (JIMBO) suitable mask, [employer] supplies, opt Chinstrap, G47.33. (Patient taking differently: Pressure changed in my office to Autopap 5-8 cm H2O, Heat Humidity & heated Tubing (JIMBO) suitable mask, [employer] supplies, opt Chinstrap, G47.33.) gluc benitez/chondro benitez A/vit C/Mn (GLUCOSAMINE-CHONDROITIN COMPLX ORAL) Take 1 tablet by mouth once daily. Coenzyme Q10 300 mg cap Take 300 mg by mouth once daily. melatonin 3 mg Take 5 mg by mouth daily at bedtime. CPAP/BIPAP/OTHER Type .CPAPSettings into a note to see current settings/supplies/DME information. atorvastatin (LIPITOR) 40 mg tablet Take 1 tablet by mouth once daily. (Patient taking differently: Take 20 mg by mouth once daily. ) Prior Hypersomnia/Narcolepsy Medications (20 years) Some values may be hidden. Unless noted otherwise, only the newest values recorded on each date are displayed. Hypersomnia/Narcolepsy Medications No data to display. Prior RLS Medications (last 20 years) Some values may be hidden. Unless noted otherwise, only the newest values recorded on each date are displayed. RLS Medications HYDROcodone 5 mg - acetaminophen 325 mg tablet (NORCO) Dose: 1-2 tablet X (PACU ONLY) PRN Starting date: 03/11/2017 Ending date: 03/11/2017 (Discontinued) HYDROmorphone 0.2 mg injection (DILAUDID) Dose: 0.2 mg EVERY 2 HOURS NEEDED HIGH RISK MEDICATION Caution: Hydromorphone is 5 - 7 times MORE POTENT than morphine. For example: Hydromorphone 1mg IV = morphine 7mg IV Starting date: 08/06/2020 Ending date: 08/10/2020 (Discontinued) HYDROmorphone 0.2 mg injection (DILAUDID) Dose: 0.2 mg ONCE HIGH RISK MEDICATION Caution: Hydromorphone is 5 - 7 times MORE POTENT than morphine. For example: Hydromorphone 1mg IV = morphine 7mg IV Starting date: 08/15/2020 Ending date: 08/15/2020 meperidine (PF) 12.5 mg injection (DEMEROL) Dose: 12.5 mg X (PACU ONLY) ONCE May Repeat 12.5 mg in 10 minutes X1 for Continued Shivering Starting date: 03/21/2020 Ending date: 03/21/2020 (Discontinued) meperidine (PF) 12.5 mg injection (DEMEROL) Dose: 12.5 mg EVERY 10 MINUTES NEEDED for shivering May Repeat 12.5 mg in 10 minutes X1 for Continued Shivering Starting date: 02/16/2020 Ending date: 02/16/2020 (Discontinued) morphine 4 mg injection Dose: 4 mg ONCE Starting date: 12/03/2019 Ending date: 12/03/2019 oxyCODONE 5-10 mg oral liquid (ROXICODONE) Dose: 5-10 mg EVERY 4 HOURS NEEDED Starting date: 08/06/2020 Ending date: 08/10/2020 (Discontinued) oxyCODONE IR 5-10 mg tab(s) (ROXICODONE) Dose: 5-10 mg EVERY 4 HOURS NEEDED Give 1 tab for Moderate Pain (4-6) Give 2 tab for Severe Pain (7-10) Starting date: 08/06/2020 Ending date: 08/06/2020 (Discontinued) oxyCODONE IR 5 mg tab(s) (ROXICODONE) Dose: 5 mg EVERY 6 HOURS NEEDED Starting date: 08/16/2020 Ending date: 08/21/2020 (Discontinued) oxyCODONE IR (ROXICODONE) 5 mg immediate release tablet Dose: 5 mg EVERY 6 HOURS NEEDED Starting date: 08/10/2020 Ending date: 08/13/2020 oxyCODONE IR (ROXICODONE) 5 mg immediate release tablet Dose: 5 mg EVERY 6 HOURS NEEDED Starting date: 08/20/2020 Ending date: 08/23/2020 Prior Insomnia Medications (last 20 years) Some values may be hidden. Unless noted otherwise, only the newest values recorded on each date are displayed. Insomnia Medications ALPRAZolam 0.5 mg tab(s) (XANAX) Dose: 0.5 mg EVERY 12 HOURS NEEDED Starting date: 02/12/2017 Ending date: 02/13/2017 (Discontinued) diazePAM 1 mg tab(s) (VALIUM) Dose: 1 mg 3 TIMES DAILY NEEDED Starting date: 08/16/2020 Ending date: 08/17/2020 (Discontinued) melatonin 3 mg tab(s) Dose: 3 mg AT BEDTIME Starting date: 02/12/2017 Ending date: 02/13/2017 (Discontinued) melatonin 6 mg tab(s) Dose: 6 mg AT BEDTIME Starting date: 12/04/2019 Ending date: 12/05/2019 (Discontinued) melatonin 3 mg tab(s) Dose: 3 mg DAILY AT 8 PM Starting date: 08/15/2020 Ending date: 08/21/2020 (Discontinued) melatonin 3 mg Dose: 5 mg AT BEDTIME Starting date: (active) melatonin tab(s) 5 mg Dose: 5 mg AT BEDTIME NEEDED insomnia Starting date: 08/06/2020 Ending date: 08/10/2020 (Discontinued) midazolam (PF) injection (VERSED) Dose: Starting date: 03/21/2020 Ending date: 03/21/2020 (Discontinued) PHYSICAL EXAMINATION: Vital Signs: BP 122/72 (BP Site: Right Arm, BP Position: Sitting, BP Cuff Size: Regular Adult) Pulse 77 Temp 36.9 C (98.4 F) Resp 20 Ht 157.5 cm (5' 2 ) Wt 62.6 kg (138 lb) SpO2 96% BMI 25.24 kg/m PHYSICAL EXAM: Constitutional: Appearance: Well groomed. Well nourished female. Very pleasant. Skin: General: Skin is warm, dry, intact. Extremities: General: No dependent edema. Neurological: General: No focal deficit present. Mental Status: A&OX3 (person, place, and time). Speech: Clear, projects well. Memory: Intact, responses appropriate. Psychiatric: Mood and Affect: Mood normal. Behavior: Behavior normal IMPRESSION: Diagnosis: Camryn (obstructive sleep apnea) (primary encounter diagnosis) Atrial fibrillation, chronic (hcc) Sleep Studies (Reviewed Prior and Current): Polysomnogram performed on 01/11/2019 revealed severe CAMRYN (Total AHI 65.4, Off-Supine AHI 43.6, Supine AHI 65.4) that was associated with a minimum O2 saturation of 72%. Respiratory events consisted of obstructive apneas, hypopneas, and RERAs. The severity of this sleep related breathing disorder may be underestimated due to the presence of mild flow and effort decrements associated with arousal and/or oxygen desaturation not meeting established CMS respiratory event criteria. 2. Atrial fibrillation on limited channel EKG recording. PSG Split Night Study 07/04/2021 revealed severe CAMRYN (AHI of 62.9) that was associated with a minimum O2 saturation of 82%. 1. The patient used her oral appliance during the diagnostic portion of the study and the AHI was 62.9 with the oral appliance in place, demonstrated lack of efficacy of the oral appliance. 2. The decision was made to split the patient onto CPAP given the elevated AHI with the oral appliance in place. PAP titration was done with the oral appliance in place. 3. During the PAP titration portion, at CPAP 7 and 8 cmH2O the AHI was normalized and the oxygen saturation was maintained above 88%. At CPAP 9 and 10 cmH2O the patient began to experience central apneas that appeared to be treatment emergent, but also had the appearance of Hair Hay breathing pattern. Atrial fibrillation was noted. RECOMMENDATIONS: Auto-titrating CPAP 5-8 cmH2O with humidification and with concurrent use of oral appliance. Close clinical follow up with data download after 1 month to ensure tolerance, efficacy, and compliance. Would consider full night PAP titration study with Bilevel PAP, possible addition of back rate, and/or ASV if significant central events are noted on the download. Overview: Ms. Queenie Adan is a 76 year old male with a PMH of CAMRYN, Atrial Fibrillation, S/P Ablation of Atrial Fibrillation, CHF, CAD, Pulmonary HTN, Sinus Pause, Valvular Heart Disease who presents in person for CAMRYN (APAP 5-8 cmH20) and MAD. - Doing well with PAP therapy. - Denies mask or pressure intolerance. She would like to have her ramp turned back on. - Discussed PAP interrogation and download. - Compliant and benefiting from treatment. - Face to face examination completed 02/17/22. - Ms. Queenie Adan has fulfilled her insurance requirement by following up with a visit 31-90 days after beginning patient therapy, average usage is 8 hours 18 minutes, and compliancy of 100 %. Reviewed objective PAP compliance data: Device interrogated in room. Respironics DreamStation 2 Advanced Pressure 5-8 cmH20 Mode - Auto Usage days (100%) >= 4 hours - (100%) Average # hours nights used - 8.18 Pressure 90th % - 7.5 cmH20 Average time in large leak per day - 00:00:00 Residual AHI - 5.4 Plan: (1) Today during visit increased AutoPAP at 5-10 cmH2O with mouth guard. (2) Today during visit increased ramp time to 30 minutes. (3) Patient is in need of new supplies Will send script to [facility]. - Remember to clean your mask and equipment regularly, as directed. - You should be eligible for new supplies approximately every 3-6 months, depending on your insurance coverage. Contact your Durable Medical Equipment (DME) company for new supplies as needed. (4) 1 have ordered a HOME SLEEP APNEA TEST (HSAT) WITH MOUTH GUARD to evaluate for obstructive sleep apnea. - What is a Home Sleep Assessment Test (HSAT). The HSAT -- also called portable monitoring or an ihl-rs-ckxhzx sleep test, is a diagnostic test sleep professionals and doctors use to diagnose obstructive sleep apnea. A technically adequate HSAT device incorporates a minimum of the following sensors: nasal pressure, chest and abdominal respiratory inductance plethysmography, and oximetry; or peripheral arterial tonometry (PAT) with oximetry and actigraphy (2). - Call [phone] to schedule your home sleep study if it is not scheduled after your visit today with one of our schedulers. - The morning after your sleep study is completed, please contact our office to schedule a follow up visit (in clinic or virtual) in 2-3 weeks with Sleep LEIF's or with Results Clinic who will be explain the results in detail and treatments options. Results are usually available within 10-14 business days. HOME SLEEP APNEA TESTING INSTRUCTIONS: If your Sleep Study has not been scheduled please call one of the following numbers, based upon your location preference: - [facility] or [facility] - [phone] or toll free at [phone] - [place] - [phone] - [place] - [phone] - [place] - [phone] The device will be delivered to your home via UPS. You do not need to be home to sign for the package. Please use the equipment the night you receive it and return the equipment the following day. UPS packaging and return postage are included. Your device will contain instructions how to use the equipment and a contact number for a biochemistry technologist. The technologist can help address any problems that occur during the test. You will receive a telephone call or a RenéSim chart message approximately 1 week prior to receiving the home sleep apnea test equipment. To reschedule please call [phone]. - Avoid driving when drowsy. Recommend that if you are dozing off while driving, that you do not drive until your sleepiness is appropriately treated. -Encouraged healthy lifestyle with adequate sleep ( 7-9 hours per night), diet and exercise. Will call and send HSAT results to patient. Follow up in 1 year. If you have questions, feel free to send me a Celect message. I spent a total of 30 minutes as this was an established patient to me on the date of the service which included preparing to see the patient, zrme-cq-sket patient care, completing clinical documentation, counseling and educating the patient/family/caregiver and ordering medications, tests, or procedures. Kizzy Ayala APRN.EUNICE documented in this encounter [facility] 02-14-2022 History of Present illness Narrative Chief Complaint Patient presents with: Follow Up: 3 month HPI Queenie E Orquidea Adan is a 77 year old female who presents here today for Above Complaints. History of IPMN managed by Dr. Gomez. S/p pancreatectomy/splenectomy in 2020. No changes to regimen at today. CT on 02/05 negative for local recurrence. Recommending repeat CT pancreas in 1 year. Prediabetes: A1c improved from 6.4 to 6.1 on metformin BID without side effects. Sticking to low carb diet most of the time. Would like to continue current regimen. Has booklet at home for meal planning. CAMRYN: using CPAP on a nightly basis but states that her readings have been higher recently and she is feeling more tired during the day. Has appointment with sleep medicine on 02/17 to go over these issues. BP well controlled on current regimen. Leg swelling has improved on lower dose of amlodipine. Notes more swelling in her legs if not adhering to low sodium diet and with high temp day. Requesting order for repeat screening mammogram. History of breast cancer in 1998. Has follow up appointment with oncology next month. Past medical history, appointments, medications, allergies reviewed. Previous Medical History PAST MEDICAL HISTORY Diagnosis Date A-fib (HCC) Dr. Cody Breast cancer (HCC) 1998 lobular, left side. Stage I, ER+/IN+/HER2-. Seeing Dr. 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, estrogen receptor positive (HCC) 01/09/2017 Osteoarthritis, knee Pancreatic cyst 11/2019 Pancreatitis PONV (postoperative nausea and vomiting) Prediabetes Recurrent seroma of breast S/P ablation of atrial fibrillation 2010 Sleep apnea on CPAP Vaginal dryness Varicose veins of both lower extremities Previous Surgical History PAST SURGICAL HISTORY Procedure Laterality Date ABLATION CATHETER 09/2014 venous ablation left GSV AFIB ABLATION/PULM VEIN ISOLATION 2010 APPENDECTOMY 1957 BREAST BIOPSY 1973 benign BREAST LUMPECTOMY HX Left 1998 left breast: 08/02 nodes; s/p Adj Chemo & Adj Radt CARDIAC CATHETERIZATION HX 07/2014 ostail LAD 35% COLONOSCOPY 06/2016 5 mm polyp. repeat in 5 years EXC CYST/ABERRANT BREAST TISSUE OPEN 1/> LESION 03/21/2020 EXCISION MALIGNANT LESIONS,TRUNK,ARMS,LEGS Left 03/11/2017 Re-Excision of Left Mast site: negative for cancer MASTECTOMY, SIMPLE, COMPLETE Left 02/12/2017 Left Compl Mast: pT1cNx, ER/IN+, HER2 Neg IDC w/Radial Margin MIDLINE INSERTION/CONSULT 08/17/2020 NIPPLE EXPLORATION Right 2013 ductal excision Right breast OTHER 2007 left knee ligament replacement OTHER 07/2020 Pancreatic surgery PAST SURGICAL HISTORY OF 11/2019 pancreatic cyst fluid removal REMOVE CATARACT, INSERT LENS,EX Bilateral Family History FAMILY HISTORY Problem Relation Age of Onset Breast Cancer Mother Heart Mother 95 Thyroid Mother Coronary Artery Disease Father 75 Prostate Cancer Brother pancreatic Prostate Cancer Brother Hypertension Brother Cancer Brother Mantle Cell Lymphnomas - dx last month Hypertension Brother Hypertension Brother Thyroid Brother Hypertension Brother Hypertension Brother Breast Cancer Maternal Aunt lived til 103 Patient Allergies 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 [place] [Hydrocodone-* Vomiting Penicillins Other: See Comments blisters Current Medications Current Outpatient Medications on File Prior to Visit Medication Sig potassium chloride ER (KLOR-CON M20) 20 mEq tablet Take 2 tablets by mouth every 48 hours AND 4 tablets every 48 hours. ramipril (ALTACE) 10 mg capsule Take 1 capsule by mouth twice daily. amLODIPine (NORVASC) 5 mg tablet Take 1 tablet by mouth once daily. exemestane (AROMASIN) 25 mg tablet Take 1 tablet by mouth once daily. TAKE AFTER A MEAL. furosemide (LASIX) 40 mg tablet Take 1 tablet by mouth every 48 hours AND 2 tablets every 48 hours. Alternate 40 mg daily with 80 mg daily. zoledronic acid (RECLAST) 5 mg/100 mL pgbk PREMIX piggyback Inject 100 mL intravenously as directed. metFORMIN (GLUCOPHAGE) 500 mg tablet Take 1 tablet by mouth twice daily with meals. apixaban (ELIQUIS) 5 mg tab(s) Take 1 tablet by mouth twice daily. (restart 12/09/19) metoprolol succinate ER (TOPROL XL) 25 mg 24 hr tablet TAKE 1 TABLET BY MOUTH EVERYDAY AT BEDTIME acetaminophen (TYLENOL) 500 mg tablet Take 1,000 mg by mouth as needed. palbociclib (IBRANCE) 125 mg tablet Take 1 tablet (125mg) by mouth once daily for 21 days on then 7 days off. Take with or without food. biotin 5,000 mcg subl Dissolve 1 tablet under the tongue once daily. Famotidine-Ca Carb-Mag Hydrox (PEPCID COMPLETE) 10-800-165 mg chew Take 1 tablet by mouth once daily as needed. ibvkv-aj-0-wjp-zmq-eemsgrr-ast [phone] mg cap Take 1 tablet by mouth. cholecalciferol, vitamin D3, (VITAMIN D3 ORAL) Take 1,000 Units by mouth twice daily. vit A/vit C/vit E/zinc/copper (PRESERVISION AREDS ORAL) Take 1 tablet by mouth twice daily. gluc benitez/chondro benitez A/vit C/Mn (GLUCOSAMINE-CHONDROITIN COMPLX ORAL) Take 1 tablet by mouth once daily. Coenzyme Q10 300 mg cap Take 300 mg by mouth once daily. melatonin 3 mg Take 5 mg by mouth daily at bedtime. CPAP/BIPAP/OTHER Type .CPAPSettings into a note to see current settings/supplies/DME information. atorvastatin (LIPITOR) 40 mg tablet Take 1 tablet by mouth once daily. (Patient taking differently: Take 20 mg by mouth once daily. ) CPAP/BIPAP/OTHER Type .CPAPSettings into a note to see current settings/supplies/DME information. CPAP Pressure changed in my office to Autopap 9.5-15 cm H2O, Heat Humidity & heated Tubing (JIMBO) suitable mask, Lifetime supplies, opt Chinstrap, G47.33. (Patient taking differently: Pressure changed in my office to Autopap 5-8 cm H2O, Heat Humidity & heated Tubing (JIMBO) suitable mask, Lif[employer] supplies, opt Chinstrap, G47.33. ) No current facility-administered medications on file prior to visit. Social History Social History Tobacco Use Smoking status: Never Smokeless tobacco: Never Vaping Use Vaping Use: Never used Substance Use Topics Alcohol use: Yes Comment: rare, maybe one drink a month Drug use: No Review of Symptoms REVIEW OF SYSTEMS GENERAL: No weight loss, malaise or fevers RESPIRATORY: Negative for cough, hemoptysis, wheezing, COPD, dyspnea or shortness of breath CARDIOVASCULAR: Negative for chest pain, leg swelling, hypertension, CHF or palpitations GI: No nausea, vomiting, or diarrhea SKIN: Negative for lesions, rash, and itching EXAM: BP 122/62 Pulse 60 Resp 16 Wt 64 kg (141 lb 3.2 oz) SpO2 96% BMI 25.83 kg/m General Appearance: Well appearing, alert, in no acute distress, well-hydrated, well nourished.. Skin: Skin color, texture, turgor normal, no suspicious rashes or lesions. Lungs: Lungs clear to auscultation. No wheezing, rhonchi, rales.. Heart: RRR without murmur, gallop, or rubs. No ectopy. Abdomen: Normal abdominal exam, Abdomen soft, non-tender. Bowel sounds normal. No masses, organomegaly. Extremities: No deformities, edema, skin discoloration, clubbing or cyanosis. Good capillary refill. . Health Maintenance List SHINGRIX VACCINE(1 of 2) Never done ADVANCE DIRECTIVE DISCUSSION Never done INFLUENZA(1) due on 02/20/2022 COVID-19 VACCINE(5 - Booster for Moderna series) due on 03/15/2022 ANNUAL PCP TEAM CHRONIC DISEASE VISIT due on 11/08/2022 LDL CHOLESTEROL due on 11/15/2022 BP CONTROLLED (<130/80) due on 11/19/2022 DEPRESSION SCREENING due on 11/20/2022 DIABETES SCREEN due on 11/21/2024 DTAP,TDAP,TD(2 - Td or Tdap) due on 08/05/2028 BONE DENSITY Completed HEPATITIS C SCREENING Completed PNEUMOCOCCAL: 65+ Completed Data reviewed Component Latest Ref Rng & Units 11/07/2021 11/15/2021 11/21/2021 WBC 3.70 - 11.00 k/uL 3.30 (L) RBC 3.90 - 5.20 m/uL 3.10 (L) Hemoglobin 11.5 - 15.5 g/dL 11.6 Hematocrit 36.0 - 46.0 % 33.5 (L) MCV 80.0 - 100.0 fL 108.1 (H) MCH 26.0 - 34.0 pg 37.4 (H) MCHC 30.5 - 36.0 g/dL 34.6 RDW-CV 11.5 - 15.0 % 16.7 (H) Platelet Count 150 - 400 k/uL 206 MPV 9.0 - 12.7 fL 9.3 Neut% % 41.6 Abs Neut (ANC) 1.45 - 7.50 k/uL 1.37 (L) Lymph% % 37.0 Abs Lymph 1.00 - 4.00 k/uL 1.22 Nicholas% % 14.8 Abs Nicholas <0.87 k/uL 0.49 Eosin% % 2.7 Abs Eosin <0.46 k/uL 0.09 Baso% % 3.6 Abs Baso <0.11 k/uL 0.12 (H) Immature Gran % % 0.3 IMMATURE GRANS (ABS) <0.10 k/uL <0.03 NRBC /100 WBC 0.0 Absolute nRBC <0.01 k/uL <0.01 DTYPE Auto Protein, Total 6.3 - 8.0 g/dL 7.6 7.6 Albumin 3.9 - 4.9 g/dL 4.7 4.8 Calcium 8.5 - 10.2 mg/dL 9.6 9.7 Bilirubin, Total 0.2 - 1.3 mg/dL 0.6 0.9 Alkaline Phosphatase 34 - 123 U/L 143 (H) 143 (H) AST 13 - 35 U/L 20 16 ALT 7 - 38 U/L 14 11 Glucose 74 - 99 mg/dL 161 (H) 153 (H) BUN 7 - 21 mg/dL 27 (H) 24 (H) Creatinine 0.58 - 0.96 mg/dL 0.84 1.00 (H) Sodium 136 - 144 mmol/L 137 138 Potassium 3.7 - 5.1 mmol/L 3.8 3.7 Chloride 97 - 105 mmol/L 98 99 CO2 22 - 30 mmol/L 25 28 Anion Gap 9 - 18 mmol/L 14 11 eGFR >=60 mL/min/1.73m 72 58 (L) Cholesterol, Total <200 mg/dL 137 Triglyceride <150 mg/dL 64 HDL Cholesterol >39 mg/dL 55 Non HDL Cholesterol <130 mg/dL 82 Fasting Time hrs 12 VLDL Cholesterol <30 mg/dL 13 TC:HDL Ratio <5.10 2.49 LDL Cholesterol <100 mg/dL 69 LDL:HDL Ratio <2.54 1.25 Hemoglobin A1C 4.3 - 5.6 % 6.1 (H) Estimated Average Glucose mg/dL 128 Vitamin D 25 Hydroxy 31.0 - 80.0 ng/mL 76.3 ASSESSMENT/PLAN: 1. Prediabetes - ICD9: 790.29, ICD10: R73.03 (primary diagnosis) Work on healthy diet and exercise. Recheck A1c in 3 months. 2. Essential hypertension - ICD9: 401.9, ICD10: I10 - good control - Continue current medication(s) - Encouraged dietary sodium restriction/DASH diet - Recommended regular aerobic exercise. - Reviewed risks of HTN and principles of treatment - Goal of BP <140/90 3. CAMRYN (obstructive sleep apnea) - ICD9: 327.23, ICD10: G47.33 AHI increasing and symptoms worsening with current CPAP settings. Follow up with sleep medicine as scheduled. 4. Hyperlipidemia, mixed - ICD9: 272.2, ICD10: E78.2 - good control - Continue current medication. - Encouraged following a low fat, low cholesterol diet. - Discussed the benefits of regular aerobic exercise and weight loss. 5. Atrial fibrillation, chronic (HCC) - ICD9: 427.31, ICD10: I48.20 Rate controlled on current regimen. Continue eliquis for anticoagulation. F/u in 3 months. 6. Coronary artery disease involving [place] coronary artery of [place] heart with angina pectoris (HCC) - ICD9: 414.01, 413.9, ICD10: I25.119 Asymptomatic on medical management. 7. IPMN (intraductal papillary mucinous neoplasm) - ICD9: 239.0, ICD10: D49.0 Doing well s/p pancreatectomy/splenectomy. F/u with general surgery and CT in 1 year. 8. Stage 1 breast cancer, ER+, left (HCC) - ICD9: 174.9, V86.0, ICD10: C50.912, Z17.0 No evidence of recurrence. Repeat mammogram and f/u with oncology as schedueld. 9. 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 No nausea or vomiting. - Follow up in [address] panc CC: Main duct IPMN INTERVAL HPI: Patient doing well. No nausea or vomiting. No steatorrhea. She is regular. Was started on Metformin by her PCP for pre-diabetes. PHYSICAL EXAM: There were no vitals taken for this visit. Gen: NAD Pulm: Non-labored breathing Ext: [place] spont Neuro: Answering questions appropriately This visit was conducted as a virtual visit. I spent a total of 20 minutes on the date of the service which included preparing to see the patient, [id number] patient care, completing clinical documentation, obtaining and/or reviewing separately obtained history, performing a medically appropriate examination, counseling and educating the patient/family/caregiver, ordering medications, tests, or procedures, communicating results to the patient/family/caregiver, and care coordination (not separately reported). Anirudh Gomez MD [facility] surgery Pager: [phone] documented in this encounter [facility] 02-11-2022 Miscellaneous Notes Call from patient requesting refill. Requested Prescriptions Pending Prescriptions Disp Refills potassium chloride ER (KLOR-CON M20) 20 mEq tablet 120 tablet 3 Sig: Take 2 tablets by mouth every 48 hours AND 4 tablets every 48 hours. Patient last seen 11/26/21 Jose Duenas documented in this encounter [facility] 02-06-2022 Miscellaneous Notes Refills sent as requested. Patient has been identified by name and date of : Yes Requested Prescriptions Pending Prescriptions Disp Refills ramipril (ALTACE) 10 mg capsule 180 capsule 1 Sig: Take 1 capsule by mouth twice daily. amLODIPine (NORVASC) 5 mg tablet 90 tablet 1 Sig: Take 1 tablet by mouth once daily. RX INSTRUCTIONS: Patient aware RX will be sent to pharmacy. No need to notify patient. BELKYS 11/08/21 Scheduled 02/14/22 Abigail Vargas LPN documented in this encounter [facility] 02-05-2022 History of Present illness Narrative Radiology Service Progress Note DATE OF SERVICE: February 05, 2022 TIME: 2:38 PM PATIENT IDENTITY VERIFICATION COMPLETED USING TWO (2) STANDARD IDENTIFIERS: Name and Date of confirmed by patient verbally. FALL SCREENING: Has the patient had 2 falls in the last year or 1 fall with injury or currently using an Ambulatory Assistive Device (Walker, Cane, Wheelchair, Crutches, etc.)? No PATIENT GENDER DATA: Female. status: : No status: NO. PATIENT RELEVANT IMPLANT DATA REVIEWED: Yes ALLERGIES: Reviewed and unchanged CONTRAST ALLERGY: NO. EXAM: CT -CONTRAST INDUCED NEPHROPATHY RISK FACTORS: Patient age > 60 years CREATININE: Creatinine Date Value Ref Range Status 02/05/2022 0.94 0.58 - 0.96 mg/dL Final 11/21/2021 1.00 (H) 0.58 - 0.96 mg/dL Final 11/07/2021 0.84 0.58 - 0.96 mg/dL Final Estimated Glomerular Filtration Rate Date Value Ref Range Status 02/05/2022 62 >=60 mL/min/1.73m Final Comment: Estimated Glomerular Filtration Rate (eGFR) is calculated using the 2020 CKD-EPI creatinine equation. This equation utilizes serum creatinine, sex, and age as parameters. The creatinine assay has traceable calibration to isotope dilution-mass spectrometry. Refer to KDIGO guidelines for clinical interpretation. In patients with unstable renal function, e.g. those with acute kidney injury, the eGFR may not accurately reflect actual GFR. eGFR- Date Value Ref Range Status 07/12/2021 >60 Final P.O.C.T. RESULTS: POC done: Yes, See Lab Tab February 05, 2022 TREATMENT: N/A PERIPHERAL IV DATA: Ambulatory: A peripheral IV was started in the Right forearm with a Angio cath: 20 gauge. RADIOLOGY DEPARTMENT: CT; Exam(s) Completed: Chest, Pancreas , and Pelvis SIGNATURE: RT Frank(Emily) PATIENT NAME: Queenie Adan DATE: February 05, 2022 TIME: 2:38 PM documented in this encounter [facility] 01-07-2022 Miscellaneous Notes Please see my chart message and schedule OV 02/28 @ 1pm labs prior (same as previous-cancel OV 02/21. Thank you. Nimisha Aleman APRN.CNP documented in this encounter [facility] 01-06-2022 Miscellaneous Notes MALIK Pt Assistance for Dean is through [employer] and her assistance program will end 06/21/22. She will need to re-enroll. [phone] Her program ID # is [id number] For available refills pt can call this number to set up shipment 7-10 days prior. Chelsie Mcadams LPN documented in this encounter [facility] 12-30-2021 Miscellaneous Notes Social Work Problem Referral Note INFORMATION/REFERRAL : Queenie Adan 76 year old female was referred by [facility] to [facility] Social Work for the following reason(s): financial assistance - meals, parking, etc. PERSONS INTERVIEWED: patient not present INTERVENTION: Information & Referral Service Co-ordination Affect/Mood: The patient is noted as patient not present IDENTIFIED PROBLEMS/NEEDS: Financial Intervention/Referral to be provided:Arrangements made for continuity of care IMPRESSION/PLAN: SW received fax from [employer] stating updated prescription is needed. ZANE had this completed and reviewed/signed by physician. ZANE faxed to [employer] on this day. F/U APPOINTMENT: PRN Assigned ZANE listed in Care Team tab: Yes MICHAEL Valencia documented in this encounter [facility] 12-13-2021 Miscellaneous Notes Called and spoke to patient. Will document in a separate phone encounter. Kami Toure RN Pt returned call, Kami was unavailable at the time. Padma Crow Called patient, no answer, left a VM requesting a call back. Kami Toure RN Hi Kami. This is the patient I discussed with you. Can you call her to characterizes pain a little better? Vladimir Thao DO documented in this encounter [facility] 12-12-2021 Miscellaneous Notes Rated People message sent to patient. documented in this encounter [facility] 11-29-2021 Nurse Note Ms. Orquidea Adan presents today for her Reclast Infusion. INFUSION DOCUMENTATION Infusion initiated at 1020. Dose: 5mg per 100 ml IV: A 22 g angiocath was started in the right arm, was started at 1015. Infusing without signs or symptoms of infiltration. Patient tolerated well. Infusion discontinued at 1050. LAB DATA: Glucose (mg/dL) Date Value 11/21/2021 153 07/12/2021 130 Potassium (mmol/L) Date Value 11/21/2021 3.7 07/12/2021 3.6 Sodium (mmol/L) Date Value 11/21/2021 138 07/12/2021 139 Chloride (mmol/L) Date Value 11/21/2021 99 07/12/2021 98 CO2 (mmol/L) Date Value 11/21/2021 28 07/12/2021 26 Creatinine (mg/dL) Date Value 11/21/2021 1.00 07/12/2021 0.82 BUN (mg/dL) Date Value 11/21/2021 24 07/12/2021 22 Anion Gap (mmol/L) Date Value 11/21/2021 11 07/12/2021 15 Calcium (mg/dL) Date Value 07/12/2021 9.6 Calcium, Total (mg/dL) Date Value 11/21/2021 9.7 Protein, Total (g/dL) Date Value 11/21/2021 7.6 07/12/2021 7.2 Albumin (g/dL) Date Value 11/21/2021 4.8 07/12/2021 4.6 Bilirubin, Total (mg/dL) Date Value 11/21/2021 0.9 07/12/2021 0.8 Alkaline Phosphatase (U/L) Date Value 11/21/2021 143 07/12/2021 155 AST (U/L) Date Value 11/21/2021 16 07/12/2021 18 ALT (U/L) Date Value 11/21/2021 11 07/12/2021 13 Vitamin D 25 Hydroxy (ng/mL) Date Value 11/21/2021 76.3 10/26/2020 74.2 PLAN: Return in one year Ms. Orquidea Adan was discharged in no distress and accompanied by a friend. Supervising Physician: Dr. Ajit Mckeon RN November 29, 2021 11:42 AM documented in this encounter [facility] 11-26-2021 History of Present illness Narrative Images from the original note were not included. [facility] [place] [facility] Department of Cardiovascular Medicine SECTION OF HEART FAILURE AND CARDIAC TRANSPLANT MEDICINE OUTPATIENT VISIT DATE November 26, 2021 OUTPATIENT VISIT TYPE Virtual Encounter This Team Access Model visit is a virtual encounter. It required patient-provider interaction for the medical decision making as documented below. PRIMARY CARE PHYSICIAN: Tala Negron [address] [place] [address] CHIEF COMPLAINT: HF Management HISTORY OF PRESENT ILLNESS: Ms. Orquidea Adan is a 76 year old female who presents today for a cardiovascular medicine follow-up visit. She has a PMHx significant for CHF, mild CAD, GERD, persistent AF s/p PVI OSH 2009 (initially successful but documented recurrence ), CAMRYN on CPAP, moderate pulmonary HTN, hyperparathyroidism s/p parathyroidectomy, and IPMN s/p distal pancreatectomy with splenectomy 08/06/20, recurrent seroma of breast, breast Ca. She was last seen in clinic on 07/12/21 via [facility]. At that time, she reported overall doing well. Main concern today has been noted low heart rates at night on apple watch. She just had repeat sleep study to see if oral appliance alone would help. New pressure settings started just 2 nights ago. She feels well - sleeps 8-9 hrs per night. Vaccinated. No COVID ever. Sent vitals over [email or web address] yesterday and all look great! She was instructed to note what HR does over next 2 weeks w/change in CPAP settings, we can always move Toprol to mid day to avoid late night/early AM low HR, did discuss normal to have bradycardia at night, can always do holter if needed to ensure no significant pauses (did discuss no need for pacer at this time). Today, she reports she had pneumonia since her last visit. She is experiencing some LE edema and cramping. She denies RLS or other sleep difficulties. She is CPAP compliant and sleeps sitting up. 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 She has been vaccinated against COVID-19 (including 2 boosters). From a cardiovascular perspective, pt continues to do well and specifically denies any CP, SOB, syncope, orthopnea, focal neuro sx, post-prandial abdominal pain, or claudication. PAST CARDIAC HISTORY: SEE HPI PAST MEDICAL HISTORY: PAST MEDICAL HISTORY Diagnosis Date A-fib ([facility]) Dr. Cody Breast cancer ([facility]) 1998 lobular, left side. Stage I, ER+/IN+/HER2-. Seeing Dr. Friend Chronic diastolic CHF (congestive heart failure) ([facility]) Coronary artery disease mild Elevated alkaline phosphatase level Falls frequently GERD (gastroesophageal reflux disease) HTN (hypertension) Hyperparathyroidism (HCC) 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, estrogen receptor positive ([facility]) 01/09/2017 Osteoarthritis, knee Pancreatic cyst 11/2019 Pancreatitis PONV (postoperative nausea and vomiting) Prediabetes Recurrent seroma of breast S/P ablation of atrial fibrillation 2010 Sleep apnea on CPAP Vaginal dryness Varicose veins of both lower extremities PAST SURGICAL HISTORY: PAST SURGICAL HISTORY Procedure Laterality Date ABLATION CATHETER 09/2014 venous ablation left GSV AFIB ABLATION/PULM VEIN ISOLATION 2010 APPENDECTOMY 1957 BREAST BIOPSY 1973 benign BREAST LUMPECTOMY HX Left 1998 left breast: 08/02 nodes; s/p Adj Chemo & Adj Radt CARDIAC CATHETERIZATION HX 07/2014 ostail LAD 35% COLONOSCOPY 06/2016 5 mm polyp. repeat in 5 years EXC CYST/ABERRANT BREAST TISSUE OPEN /> LESION 03/21/2020 EXCISION MALIGNANT LESIONS,TRUNK,ARMS,LEGS Left 03/11/2017 Re-Excision of Left Mast site: negative for cancer MASTECTOMY, SIMPLE, COMPLETE Left 02/12/2017 Left Compl Mast: pT1cNx, ER/IN+, HER2 Neg IDC w/Radial Margin MIDLINE INSERTION/CONSULT 08/17/2020 NIPPLE EXPLORATION Right 2013 ductal excision Right breast OTHER 2007 left knee ligament replacement OTHER 07/2020 Pancreatic surgery PAST SURGICAL HISTORY OF 11/2019 pancreatic cyst fluid removal REMOVE CATARACT, INSERT LENS,EX Bilateral SOCIAL HISTORY: Social History Tobacco Use Smoking status: Never Smoker Smokeless tobacco: Never Used Vaping Use Vaping Use: Never used Substance Use Topics Alcohol use: Yes Comment: rare, maybe one drink a month Drug use: No ALLERGIES: 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 [place] [Hydrocodone-* Vomiting Penicillins Other: See Comments blisters MEDICATIONS: metFORMIN (GLUCOPHAGE) 500 mg tablet Take 1 tablet by mouth twice daily with meals. CPAP/BIPAP/OTHER Type .CPAPSettings into a note to see current settings/supplies/DME information. ramipril (ALTACE) 10 mg capsule Take 1 capsule by mouth twice daily. apixaban (ELIQUIS) 5 mg tab(s) Take 1 tablet by mouth twice daily. (restart 12/09/19) amLODIPine (NORVASC) 5 mg tablet Take 1 tablet by mouth once daily. atorvastatin (LIPITOR) 40 mg tablet Take 1 tablet by mouth once daily. metoprolol succinate ER (TOPROL XL) 25 mg 24 hr tablet TAKE 1 TABLET BY MOUTH EVERYDAY AT BEDTIME CPAP/BIPAP/OTHER Type .CPAPSettings into a note to see current settings/supplies/DME information. furosemide (LASIX) 40 mg tablet Take 1 tablet by mouth every 48 hours AND 2 tablets every 48 hours. Alternate 40 mg daily with 80 mg daily. acetaminophen (TYLENOL EXTRA STRENGTH) 500 mg tablet Take 1,000 mg by mouth as needed. palbociclib (IBRANCE) 125 mg tablet Take 1 tablet (125mg) by mouth once daily for 21 days on then 7 days off. Take with or without food. biotin 5,000 mcg subl Dissolve 1 tablet under the tongue once daily. exemestane (AROMASIN) 25 mg tablet Take 1 tablet by mouth once daily. TAKE AFTER A MEAL. Famotidine-Ca Carb-Mag Hydrox (PEPCID COMPLETE) 10-800-165 mg chew Take 1 tablet by mouth once daily as needed. aodge-nv-1-jet-mbo-bbiiqnb-ast [phone] mg cap Take 1 tablet by mouth. cholecalciferol, vitamin D3, (VITAMIN D3 ORAL) Take 1,000 Units by mouth twice daily. vit A/vit C/vit E/zinc/copper (PRESERVISION AREDS ORAL) Take 1 tablet by mouth twice daily. CPAP Pressure changed in my office to Autopap 9.5-15 cm H2O, Heat Humidity & heated Tubing (JIMBO) suitable mask, [employer] supplies, opt Chinstrap, G47.33. gluc benitez/chondro benitez A/vit C/Mn (GLUCOSAMINE-CHONDROITIN COMPLX ORAL) Take 1 tablet by mouth once daily. Coenzyme Q10 (CO Q-10) 300 mg cap Take 300 mg by mouth once daily. melatonin 3 mg Take 5 mg by mouth daily at bedtime. KLOR-CON M20 20 mEq tablet TAKE 2 TABLETS BY MOUTH TWICE A DAY zoledronic acid (RECLAST) 5 mg/100 mL pgbk PREMIX piggyback Inject 100 mL intravenously as directed. Heart Failure specific medications: BB: Toprol 25 mg QD ACEI/ARB/ARNI: Ramipril 10 mg BID Diuretic: Lasix 40 mg every day plus another 40 mg every 48 hrs Other anti-HTN: Amlodipine 5 mg QD REVIEW OF SYSTEMS: POSITIVES IN BOLD GENERAL: Negative for: Weight loss or gain, Fever or Chills, Weakness and Sleep difficulties. HEENT: Negative for: Headache, Hearing Impairment, Ringing in Ears, Nosebleeds, Poor dental care, Bleeding Gums, Dentures NECK: Negative for: Swelling, Pain, Stiffness RESPIRATORY: Negative for: Cough, Blood in Sputum, Shortness of breath, Wheezing, Apnea GASTROINTESTINAL: Negative for: Trouble swallowing, Heartburn, Change in bowel habits, Blood in stool, Dark black stools MUSCULOSKELETAL: Positive for: Muscle or joint pain, Stiffness NEUROLOGIC/PSYCHIATRIC: Negative for: Weakness, Paralysis, Numbness, Tingling, Tremor, Nervousness, Depressed mood, Memory loss SKIN: Negative for: Rashes, Itching HEMATOLOGICAL/LYMPHATIC: Negative for: Easy bruising , Easy bleeding ENDOCRINE: Negative for: Heat or cold intolerance, Excessive sweating, Frequent urination, Frequent thirst PHYSICAL EXAMINATION: There were no vitals taken for this visit. Video Exam: -[facility] CARDIOVASCULAR MEDICINE TESTING: CXR: 11/08/21 RESULT: Lines, tubes, and devices: None. Lungs and pleura: No consolidation. No lung mass. No pleural effusion. No pneumothorax. Cardiomediastinal silhouette: Stable cardiomediastinal silhouette Bones and soft tissues: Degenerative disease of the thoracic spine EC11/19/21 Diagnosis: ATRIAL FIBRILLATION LEFT AXIS DEVIATION ANTEROSEPTAL MYOCARDIAL INFARCTION , AGE UNDETERMINED ABNORMAL ECG CT CHEST W IVCON: 11/21/21 RESULT: Limitations: None. Lines, tubes, and devices: None. Lung parenchyma and airways: Indeterminate density within the right lung on image 89 of 1.7 x 0.9 x 0.5 cm. Possibly focal atelectasis. Minimal apical scarring bilaterally is stable. Minimal linear atelectasis or fibrosis bilaterally is stable. Left calcified granuloma on image 93. No consolidation. No developing or suspicious pulmonary nodule. The central airways are patent. Pleural space: No pleural effusion. No pleural thickening. Lower neck, lymph nodes, and mediastinum: The imaged thyroid gland is normal. Stable borderline mediastinal and hilar nodes. No developing lymphadenopathy in the supraclavicular, axillary, mediastinal, or hilar regions. Heart, pericardium, and thoracic vessels: The thoracic aorta and main pulmonary artery are normal in caliber. The cardiac chambers are enlarged. Mild coronary artery atherosclerotic calcifications are noted, although the study is not optimized for coronary assessment. No pericardial effusion or thickening. Bones and soft tissues: No destructive bone lesion. Chest wall is unremarkable. Upper abdomen: Scans through the abdomen and pelvis are dictated separately Tool Machine Set Up Operator (topogram) images: No additional findings. I have personally reviewed the Electrocardiogram, Chest X-ray, Laboratory Testing, Echocardiogram and CT Chest Scan. LABS Component Latest Ref Rng & Units 10/14/2021 11/07/2021 11/15/2021 11/21/2021 WBC 3.70 - 11.00 k/uL 3.30 (L) RBC 3.90 - 5.20 m/uL 3.10 (L) Hemoglobin 11.5 - 15.5 g/dL 11.6 Hematocrit 36.0 - 46.0 % 33.5 (L) MCV 80.0 - 100.0 fL 108.1 (H) MCH 26.0 - 34.0 pg 37.4 (H) MCHC 30.5 - 36.0 g/dL 34.6 RDW-CV 11.5 - 15.0 % 16.7 (H) Platelet Count 150 - 400 k/uL 206 MPV 9.0 - 12.7 fL 9.3 Neut% % 41.6 Abs Neut (ANC) 1.45 - 7.50 k/uL 1.37 (L) Lymph% % 37.0 Abs Lymph 1.00 - 4.00 k/uL 1.22 Nicholas% % 14.8 Abs Nicholas <0.87 k/uL 0.49 Eosin% % 2.7 Abs Eosin <0.46 k/uL 0.09 Baso% % 3.6 Abs Baso <0.11 k/uL 0.12 (H) Immature Gran % % 0.3 IMMATURE GRANS (ABS) <0.10 k/uL <0.03 NRBC /100 WBC 0.0 Absolute nRBC <0.01 k/uL <0.01 DTYPE Auto Protein, Total 6.3 - 8.0 g/dL 7.6 Albumin 3.9 - 4.9 g/dL 4.8 Calcium 8.5 - 10.2 mg/dL 9.7 Bilirubin, Total 0.2 - 1.3 mg/dL 0.9 Alkaline Phosphatase 34 - 123 U/L 143 (H) AST 13 - 35 U/L 16 ALT 7 - 38 U/L 11 Glucose 74 - 99 mg/dL 153 (H) BUN 7 - 21 mg/dL 24 (H) Creatinine 0.58 - 0.96 mg/dL 1.00 (H) Sodium 136 - 144 mmol/L 138 Potassium 3.7 - 5.1 mmol/L 3.7 Chloride 97 - 105 mmol/L 99 CO2 22 - 30 mmol/L 28 Anion Gap 9 - 18 mmol/L 11 eGFR >=60 mL/min/1.73m 58 (L) Cholesterol, Total <200 mg/dL 137 Triglyceride <150 mg/dL 64 HDL Cholesterol >39 mg/dL 55 Non HDL Cholesterol <130 mg/dL 82 Fasting Time hrs 12 VLDL Cholesterol <30 mg/dL 13 TC:HDL Ratio <5.10 2.49 LDL Cholesterol <100 mg/dL 69 LDL:HDL Ratio <2.54 1.25 Hemoglobin A1C 4.3 - 5.6 % 6.1 (H) Estimated Average Glucose mg/dL 128 NT Pro BNP <450 pg/mL 1,979 (H) Vitamin D 25 Hydroxy 31.0 - 80.0 ng/mL 76.3 Last 4 BP Last 4 Encounter BP Readings: Date: BP: 11/19/2021 129/71 11/11/2021 112/63 11/08/2021 108/70 10/14/2021 106/60 Creatinine Date Value Ref Range Status 11/21/2021 1.00 (H) 0.58 - 0.96 mg/dL Final 11/07/2021 0.84 0.58 - 0.96 mg/dL Final 10/10/2021 0.88 0.58 - 0.96 mg/dL Final 07/12/2021 0.82 0.58 - 0.96 mg/dL Final IMPRESSION: Ms. Orquidea Adan is a 76 year old female who presents today for a cardiovascular medicine follow-up visit. She has a PMHx significant for CHF, mild CAD, GERD, persistent AF s/p PVI OSH 2009 (initially successful but documented recurrence ), CAMRYN on CPAP, moderate pulmonary HTN, hyperparathyroidism s/p parathyroidectomy, and IPMN s/p distal pancreatectomy with splenectomy 08/06/20, recurrent seroma of breast, breast Ca. - LE edema may be due to HF or Amlodipine, cramping is suspicious for electrolyte imbalance or neuropathy NYHA Functional Class: II Stage: B heart failure Target weight: current PLAN AND RECOMMENDATIONS: Upload an image of LE edema to [employer] to help me differentiate between HF edema and Amlodipine edema Consult neurology for possible LE neuropathy in the context of chemo Try eating 1 tsp yellow mustard or doing epsom salt soak to help with leg cramping Talk to your oncologist about Evusheld. Continue to follow all other prescribed medical therapies and recommendations. Return to clinic in 2 months for follow up. The majority of the visit was spent counseling and/or coordinating care for the patient. Tefu-iv-dplc time was 30 minutes. We discussed natural history of disease, current treatment options, and future potential treatment options. We discussed diet, exercise, other non-medical management as above. Orders Placed This Encounter [facility]VI VIRTUAL VISIT APPOINTMENT Order Comments: 2-3 month VV with me Order Specific Question: Department Answer: [facility] Order Specific Question: Appt Type Answer: EST Online E&M Level 3 ($[id number]) [id number] Order Specific Question: Date of Appt Answer: 1-2 months CONSULT TO NEUROLOGY Standing Status: Future Standing Expiration Date: 11/26/2022 Order Specific Question: Does consulting provider have [facility] Epic access? Answer: Yes potassium chloride ER (KLOR-CON M20) 20 mEq tablet Sig: Take 2 tablets by mouth every 48 hours AND 4 tablets every 48 hours. furosemide (LASIX) 40 mg tablet Sig: Take 1 tablet by mouth every 48 hours AND 2 tablets every 48 hours. Alternate 40 mg daily with 80 mg daily. Dispense: 135 tablet Refill: 3 I personally interviewed, confirmed and edited the above information if obtained by others. CONTACT INFORMATION: Scribe Attestation: By signing my name below, I, Carlos Pelayo, attest that this documentation has been prepared under the direction and in the presence of Dr. Daniela Chan DO. Electronically signed, Amna Garcia November 26, 2021 9:25 AM Provider Attestation: I agree with the Chief Complaint, ROS, and Past Histories independently gathered by the clinical office support assistant and the remaining scribed note accurately describes my personal service to the patient. Daniela Chan DO, [facility] Staff, Section of Heart Failure and Transplantation Medicine [facility] Department of Cardiovascular Medicine [facility] Heart, Vascular and Thoracic [place] [address] Phone - [phone] FAX - [phone] Answers for HPI/ROS submitted by the patient on 11/20/2021 Fever : No Night Sweats: No Recent Unintentional Weight Change: No Vision Disturbance: No Hearing Loss: No A Cough: No Difficulty Breathing?: No Chest Pain: No Leg Swelling: Yes Skipping or irregular heartbeats?: Yes Feel like passing out?: No Black Tarry Stools: No Nausea: No Diarrhea: No Swelling in your abdomen?: No Fill up quickly when you eat?: Yes Difficulty Urinating?: No Joint Pain or Stiffness: Yes Muscle Aches: Yes A Rash: No Dizziness: No Headaches: No documented in this encounter [facility] 11-25-2021 History of Present illness Narrative INSIGHT CDM ESCALATION FYI: Attempt made to contact pt for [facility] questionnaire triggered escalation. Unable to contact, LM on . message sent. Question 11/25/2021 4:08 PM EDT - Filed by Patient Do you have new or worse shortness of breath with activity? No Do you have new or worsening swelling of legs, feet or ankles? Yes Do you have new or worsening trouble breathing while lying flat? No Do you check your blood pressure at home? Yes Have your blood pressure readings been At your goal Do you check your daily weight at home? Yes Have you noticed a sudden gain in weight greater than 3 pounds in 1 day, or 3 pounds in 1 week? No Message received via: InSight - No contact made with patient Left Message for PatientApolonia Zhu my name is Serina Stevens RN from the [facility]. I am calling about your responses to our [employer] [facility] questionnaire. Sorry I am not able to speak with you. If you have a problem that needs to be addressed by your physician please contact your PCP office End Outreach documented in this encounter [facility] 11-21-2021 History of Present illness Narrative Radiology Service Progress Note PATIENT NAME: Queenie Adan DATE OF SERVICE: November 21, 2021 TIME: 2:49 PM PATIENT IDENTITY VERIFICATION COMPLETED USING TWO (2) IDENTIFIERS: Name and Date of confirmed by patient verbally. FALL SCREENING: Has the patient had 2 falls in the last year or 1 fall with injury or currently using an Ambulatory Assistive Device (Walker, Cane, Wheelchair, Crutches, etc.)? No PATIENT GENDER DATA: Female. status: : No status: NO. PATIENT RELEVANT IMPLANT DATA REVIEWED: Yes RADIOLOGY DEPARTMENT: CT; Exam(s) Completed: Chest Abdomen Pelvis PERIPHERAL IV DATA: iv statrted in nuc med SIGNED BY: RT Frank(R) November 21, 2021 2:49 PM documented in this encounter [facility] 11-21-2021 History of Present illness Narrative RADIOLOGY SERVICE PROGRESS NOTE SERVICE DATE: 11/21/2021 SERVICE TIME: 09:35 AM PATIENT IDENTITY VERIFICATION COMPLETED USING TWO (2) STANDARD IDENTIFIERS: Name and Date of confirmed by patient verbally FALL SCREENING: Has the patient had 2 falls in the last year or 1 fall with injury or currently using an Ambulatory Assistive Device (Walker, Cane, Wheelchair, Crutches, etc.)? No PATIENT GENDER DATA: .female : No ALLERGIES: Reviewed and unchanged MEDICATIONS REVIEWED: No PATIENT RELEVANT IMPLANT DATA REVIEWED: Not Applicable CREATININE: Creatinine Date Value Ref Range Status 11/07/2021 0.84 0.58 - 0.96 mg/dL Final 10/10/2021 0.88 0.58 - 0.96 mg/dL Final 07/12/2021 0.82 0.58 - 0.96 mg/dL Final Estimated Glomerular Filtration Rate Date Value Ref Range Status 11/07/2021 72 >=60 mL/min/1.73m Final Comment: Estimated Glomerular Filtration Rate (eGFR) is calculated using the 2020 CKD-EPI creatinine equation. This equation utilizes serum creatinine, sex, and age as parameters. The creatinine assay has traceable calibration to isotope dilution-mass spectrometry. Refer to KDIGO guidelines for clinical interpretation. In patients with unstable renal function, e.g. those with acute kidney injury, the eGFR may not accurately reflect actual GFR. eGFR- Date Value Ref Range Status 07/12/2021 >60 Final P.O.C.T. RESULTS: N/A November 21, [address] PERFORMED: No IV SITE: Ambulatory: A peripheral IV was started in the Right antecubital site with a Angio cath: 22 gauge. POST EXAM PIV STATUS: Left in for next appointment PROCEDURE TYPE: NM INJECT: Whole Body Bone Scan. 21.2 mCi Tc99m MDP. No other medications given.. ADMINISTRATION TIME: 09:40 PATIENT DISCHARGED TO: Ambulatory patient, left MA department area. A Diagnostic radioactive procedure has taken place, with no further precautions necessary other than routine body substance precautions. More information regarding radiation safety can be found using this link: [email or web address] SIGNATURE: RT Que(R) PATIENT NAME: Queenie Adan DATE: November 21, 2021 TIME: 10:07 AM PAGER/CONTACT #: documented in this encounter [facility] 11-19-2021 Instructions Howard Cody MD - 11/19/2021 9:51 AM EDT Images from the original note were not included. Heart and Vascular [place] [facility] Department of Cardiovascular Medicine SECTION OF CARDIAC PACING and ELECTROPHYSIOLOGY OUTPATIENT VISIT DATE November 19, 2021 OUTPATIENT VISIT TYPE ESTABLISHED PRIMARY CARE PHYSICIAN: Tala Negron [address] [place] [address] Cardiology Physician: Daniela Chan MD [facility] CHIEF COMPLAINT: Atrial Fibrillation HISTORY OF PRESENT ILLNESS: Queenie Adan is a 76 y/o female who presents for follow up regarding atrial fibrillation management. She has a history of persistent AF s/p PVI OSH 2009 (initially successful but documented recurrence ), CAMRYN on CPAP, moderate pulmonary HTN (follows with Dr. 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 She wore a zio monitor in November 2019, which showed 100% AF (average rate 71), 2 runs NSVT up to 7 beats, and two pauses up to 3.2 seconds (nocturnal). She is anticoagulated on eliquis and maintained on Toprol. She was admitted to [facility] on 08/15/20 with EKG findings concerning for STEMI. LHC was negative for obstructive CAD. Her chest pain resolved, and she was treated for presumed pancreatitis. Echo showed biatrial dilation, normal EF 63%, and 2-3+ TR. She was last seen in office 09/18/2020. She was given a Holter monitor to assess rate control which showed Maximum HR 119 bpm, minimum HR 45 bpm, average HR 66 bpm. She had pneumonia in September. She reports she still has less energy and is more easily fatigued. She endorses shortness of breath with moderate activity. She reports she finds in more comfortable sleeping in an easy chair (mostly due to back pain). She denies chest pain, palpitations, lightheadedness or syncope. CHADS2-Vasc Score Breakdown 6 Total Score 1 Female 2 Age >= 75 years old 1 History of CHF 1 History of hypertension 1 History of vascular disease PAST MEDICAL HISTORY Diagnosis Date A-fib (HCC) Dr. Cody Breast cancer (HCC) 1998 lobular, left side. Stage I, ER+/IN+/HER2-. Seeing Dr. 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, estrogen receptor positive (HCC) 01/09/2017 Osteoarthritis, knee Pancreatic cyst 11/2019 Pancreatitis PONV (postoperative nausea and vomiting) Prediabetes Recurrent seroma of breast S/P ablation of atrial fibrillation 2010 Sleep apnea on CPAP Vaginal dryness Varicose veins of both lower extremities PAST SURGICAL HISTORY Procedure Laterality Date ABLATION CATHETER 09/2014 venous ablation left GSV AFIB ABLATION/PULM VEIN ISOLATION 2010 APPENDECTOMY 1957 BREAST BIOPSY 1973 benign BREAST LUMPECTOMY HX Left 1998 left breast: 08/02 nodes; s/p Adj Chemo & Adj Radt CARDIAC CATHETERIZATION HX 07/2014 ostail LAD 35% COLONOSCOPY 06/2016 5 mm polyp. repeat in 5 years EXC CYST/ABERRANT BREAST TISSUE OPEN 1/> LESION 03/21/2020 EXCISION MALIGNANT LESIONS,TRUNK,ARMS,LEGS Left 03/11/2017 Re-Excision of Left Mast site: negative for cancer MASTECTOMY, SIMPLE, COMPLETE Left 02/12/2017 Left Compl Mast: pT1cNx, ER/IN+, HER2 Neg IDC w/Radial Margin MIDLINE INSERTION/CONSULT 08/17/2020 NIPPLE EXPLORATION Right 2013 ductal excision Right breast OTHER 2007 left knee ligament replacement OTHER 07/2020 Pancreatic surgery PAST SURGICAL HISTORY OF 11/2019 pancreatic cyst fluid removal REMOVE CATARACT, INSERT LENS,EX Bilateral SOCIAL HISTORY Social History Tobacco Use Smoking status: Never Smoker Smokeless tobacco: Never Used Vaping Use Vaping Use: Never used Substance Use Topics Alcohol use: Yes Comment: rare, maybe one drink a month Drug use: No FAMILY HISTORY Problem Relation Age of Onset Breast Cancer Mother Heart Mother 95 Thyroid Mother Coronary Artery Disease Father 75 Prostate Cancer Brother pancreatic Prostate Cancer Brother Hypertension Brother Cancer Brother Mantle Cell Lymphnomas - dx last month Hypertension Brother Hypertension Brother Thyroid Brother Hypertension Brother Hypertension Brother Breast Cancer Maternal Aunt lived til 103 ALLERGIES: 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 [place] [Hydrocodone-* Vomiting Penicillins Other: See Comments blisters MEDICATIONS: KLOR-CON M20 20 mEq tablet TAKE 2 TABLETS BY MOUTH TWICE A DAY metFORMIN (GLUCOPHAGE) 500 mg tablet Take 1 tablet by mouth twice daily with meals. ramipril (ALTACE) 10 mg capsule Take 1 capsule by mouth twice daily. apixaban (ELIQUIS) 5 mg tab(s) Take 1 tablet by mouth twice daily. (restart 12/09/19) amLODIPine (NORVASC) 5 mg tablet Take 1 tablet by mouth once daily. atorvastatin (LIPITOR) 40 mg tablet Take 1 tablet by mouth once daily. metoprolol succinate ER (TOPROL XL) 25 mg 24 hr tablet TAKE 1 TABLET BY MOUTH EVERYDAY AT BEDTIME furosemide (LASIX) 40 mg tablet Take 1 tablet by mouth every 48 hours AND 2 tablets every 48 hours. Alternate 40 mg daily with 80 mg daily. acetaminophen (TYLENOL EXTRA STRENGTH) 500 mg tablet Take 1,000 mg by mouth as needed. palbociclib (IBRANCE) 125 mg tablet Take 1 tablet (125mg) by mouth once daily for 21 days on then 7 days off. Take with or without food. biotin 5,000 mcg subl Dissolve 1 tablet under the tongue once daily. Famotidine-Ca Carb-Mag Hydrox (PEPCID COMPLETE) 10-800-165 mg chew Take 1 tablet by mouth once daily as needed. gleot-[id number]-[id number]-nfc-mxlgntl-ast [phone] mg cap Take 1 tablet by mouth. cholecalciferol, vitamin D3, (VITAMIN D3 ORAL) Take 1,000 Units by mouth twice daily. vit A/vit C/vit E/zinc/copper (PRESERVISION AREDS ORAL) Take 1 tablet by mouth twice daily. CPAP Pressure changed in my office to Autopap 9.5-15 cm H2O, Heat Humidity & heated Tubing (JIMBO) suitable mask, [employer] supplies, opt Chinstrap, G47.33. gluc benitez/chondro benitez A/vit C/Mn (GLUCOSAMINE-CHONDROITIN COMPLX ORAL) Take 1 tablet by mouth once daily. Coenzyme Q10 (CO Q-10) 300 mg cap Take 300 mg by mouth once daily. melatonin 3 mg Take 5 mg by mouth daily at bedtime. zoledronic acid (RECLAST) 5 mg/100 mL pgbk PREMIX piggyback Inject 100 mL intravenously as directed. CPAP/BIPAP/OTHER Type .CPAPSettings into a note to see current settings/supplies/DME information. CPAP/BIPAP/OTHER Type .CPAPSettings into a note to see current settings/supplies/DME information. exemestane (AROMASIN) 25 mg tablet Take 1 tablet by mouth once daily. TAKE AFTER A MEAL. Sharri Zavaleta RN I have personally obtained or confirmed the work performed by ancillary clinical staff as described above and edited as necessary. PHYSICAL EXAMINATION: BP 129/71 Pulse 60 Ht 157.5 cm (5' 2 ) Wt 63.5 kg (140 lb) BMI 25.61 kg/m General appearance: Normal, Normal General Exam Skin: Skin color, texture, turgor normal. No rashes or lesions. Head: Normal Neck: Neck supple, no adenopathy; thyroid symmetric, normal size Lungs: Percussion normal. Good diaphragmatic excursion. Lungs clear to auscultation. Heart: PMI normal; normal rate, regular rhythm; normal heart sounds Abdomen: Abdomen soft, non-tender. BS normal. No masses, organomegaly Extremities: Normal exam of the extremities Neuro: Gait normal. CARDIOVASCULAR MEDICINE TESTIN Hour Holter 09/18/2020 IMPRESSIONS AND FINDINGS: Atrial Fibrillation (100%) with frequent (10%) episodes of slow ventricular response, frequent episodes (3%) of rapid ventricular response, rare ventricular ectopy, four pauses greater than 2 seconds. Longest pause 2.45 seconds was at 2:01 am , Day 1. Maximum HR 119 bpm, minimum HR 45 bpm, average HR 66 bpm. Rare ventricular ectopy seen in singles, couplets, triplets, bigeminal cycles, VT runs. Longest VT run 5 beats at 127 bpm was at 4:07 pm, Day 1. Fastest VT run 4 beats at 173 bpm was at 1:47 pm, Day 1. Patient noted symptoms Out of breath did correlate with atrial fibrillation (HR 65-110 bpm). Event marker was activated. I have personally reviewed the Electrocardiogram and Holter. IMPRESSION: Ms. Orquidea Adan is a 76 year old female with chronic atrial fibrillation with a controlled ventricular response, 60 bpm today on the ECG. The patient is on Eliquis and Metoprolol. No bleeding, patient is also followed by Dr. Chan. Exam is normal today. The short Nonsustained VT on the holter in the setting of normal LV systolic function is not of concern. The patient was noted to have an elevation of BNP. PLAN AND RECOMMENDATIONS: The patient will follow with Dr. Chan. I personally interviewed, confirmed and edited the above information as obtained by others. [place] [id number] November 19, 2021 9:35 AM documented in this encounter [facility] 11-19-2021 History of Present illness Narrative Images from the original note were not included. [facility] V[facility] [place] [facility] Department of Cardiovascular Medicine SECTION OF CARDIAC PACING and ELECTROPHYSIOLOGY OUTPATIENT VISIT DATE November 19, 2021 OUTPATIENT VISIT TYPE ESTABLISHED PRIMARY CARE PHYSICIAN: Tala Negron [address] [place] [address] Cardiology Physician: Daniela Chan MD [facility] CHIEF COMPLAINT: Atrial Fibrillation HISTORY OF PRESENT ILLNESS: Queenie Adan is a 76 y/o female who presents for follow up regarding atrial fibrillation management. She has a history of persistent AF s/p PVI OSH 2009 (initially successful but documented recurrence ), CAMRYN on CPAP, moderate pulmonary HTN (follows with Dr. 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 She wore a zio monitor in November 2019, which showed 100% AF (average rate 71), 2 runs NSVT up to 7 beats, and two pauses up to 3.2 seconds (nocturnal). She is anticoagulated on eliquis and maintained on Toprol. She was admitted to [facility] on 08/15/20 with EKG findings concerning for STEMI. LHC was negative for obstructive CAD. Her chest pain resolved, and she was treated for presumed pancreatitis. Echo showed biatrial dilation, normal EF 63%, and 2-3+ TR. She was last seen in office 09/18/2020. She was given a Holter monitor to assess rate control which showed Maximum HR 119 bpm, minimum HR 45 bpm, average HR 66 bpm. She had pneumonia in September. She reports she still has less energy and is more easily fatigued. She endorses shortness of breath with moderate activity. She reports she finds in more comfortable sleeping in an easy chair (mostly due to back pain). She denies chest pain, palpitations, lightheadedness or syncope. CHADS2-Vasc Score Breakdown 6 Total Score 1 Female 2 Age >= 75 years old 1 History of CHF 1 History of hypertension 1 History of vascular disease PAST MEDICAL HISTORY Diagnosis Date A-fib ([facility]) Dr. Cody Breast cancer ([facility]) 1998 lobular, left side. Stage I, ER+/IN+/HER2-. Seeing Dr. 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, estrogen receptor positive ([facility]) 01/09/2017 Osteoarthritis, knee Pancreatic cyst 11/2019 Pancreatitis PONV (postoperative nausea and vomiting) Prediabetes Recurrent seroma of breast S/P ablation of atrial fibrillation 2010 Sleep apnea on CPAP Vaginal dryness Varicose veins of both lower extremities PAST SURGICAL HISTORY Procedure Laterality Date ABLATION CATHETER 09/2014 venous ablation left GSV AFIB ABLATION/PULM VEIN ISOLATION 2010 APPENDECTOMY 1957 BREAST BIOPSY 1973 benign BREAST LUMPECTOMY HX Left 1998 left breast: 08/02 nodes; s/p Adj Chemo & Adj Radt CARDIAC CATHETERIZATION HX 07/2014 ostail LAD 35% COLONOSCOPY 06/2016 5 mm polyp. repeat in 5 years EXC CYST/ABERRANT BREAST TISSUE OPEN 1/> LESION 03/21/2020 EXCISION MALIGNANT LESIONS,TRUNK,ARMS,LEGS Left 03/11/2017 Re-Excision of Left Mast site: negative for cancer MASTECTOMY, SIMPLE, COMPLETE Left 02/12/2017 Left Compl Mast: pT1cNx, ER/IN+, HER2 Neg IDC w/Radial Margin MIDLINE INSERTION/CONSULT 08/17/2020 NIPPLE EXPLORATION Right 2013 ductal excision Right breast OTHER 2007 left knee ligament replacement OTHER 07/2020 Pancreatic surgery PAST SURGICAL HISTORY OF 11/2019 pancreatic cyst fluid removal REMOVE CATARACT, INSERT LENS,EX Bilateral SOCIAL HISTORY Social History Tobacco Use Smoking status: Never Smoker Smokeless tobacco: Never Used Vaping Use Vaping Use: Never used Substance Use Topics Alcohol use: Yes Comment: rare, maybe one drink a month Drug use: No FAMILY HISTORY Problem Relation Age of Onset Breast Cancer Mother Heart Mother 95 Thyroid Mother Coronary Artery Disease Father 75 Prostate Cancer Brother pancreatic Prostate Cancer Brother Hypertension Brother Cancer Brother Mantle Cell Lymphnomas - dx last month Hypertension Brother Hypertension Brother Thyroid Brother Hypertension Brother Hypertension Brother Breast Cancer Maternal Aunt lived til 103 ALLERGIES: 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 [place] [Hydrocodone-* Vomiting Penicillins Other: See Comments blisters MEDICATIONS: KLOR-CON M20 20 mEq tablet TAKE 2 TABLETS BY MOUTH TWICE A DAY metFORMIN (GLUCOPHAGE) 500 mg tablet Take 1 tablet by mouth twice daily with meals. ramipril (ALTACE) 10 mg capsule Take 1 capsule by mouth twice daily. apixaban (ELIQUIS) 5 mg tab(s) Take 1 tablet by mouth twice daily. (restart 12/09/19) amLODIPine (NORVASC) 5 mg tablet Take 1 tablet by mouth once daily. atorvastatin (LIPITOR) 40 mg tablet Take 1 tablet by mouth once daily. metoprolol succinate ER (TOPROL XL) 25 mg 24 hr tablet TAKE 1 TABLET BY MOUTH EVERYDAY AT BEDTIME furosemide (LASIX) 40 mg tablet Take 1 tablet by mouth every 48 hours AND 2 tablets every 48 hours. Alternate 40 mg daily with 80 mg daily. acetaminophen (TYLENOL EXTRA STRENGTH) 500 mg tablet Take 1,000 mg by mouth as needed. palbociclib (IBRANCE) 125 mg tablet Take 1 tablet (125mg) by mouth once daily for 21 days on then 7 days off. Take with or without food. biotin 5,000 mcg subl Dissolve 1 tablet under the tongue once daily. Famotidine-Ca Carb-Mag Hydrox (PEPCID COMPLETE) 10-800-165 mg chew Take 1 tablet by mouth once daily as needed. [id number]-uki-[id number]-ast [phone] mg cap Take 1 tablet by mouth. cholecalciferol, vitamin D3, (VITAMIN D3 ORAL) Take 1,000 Units by mouth twice daily. vit A/vit C/vit E/zinc/copper (PRESERVISION AREDS ORAL) Take 1 tablet by mouth twice daily. CPAP Pressure changed in my office to Autopap 9.5-15 cm H2O, Heat Humidity & heated Tubing (JIMBO) suitable mask, [employer] supplies, opt Chinstrap, G47.33. gluc benitez/chondro benitez A/vit C/Mn (GLUCOSAMINE-CHONDROITIN COMPLX ORAL) Take 1 tablet by mouth once daily. Coenzyme Q10 (CO Q-10) 300 mg cap Take 300 mg by mouth once daily. melatonin 3 mg Take 5 mg by mouth daily at bedtime. zoledronic acid (RECLAST) 5 mg/100 mL pgbk PREMIX piggyback Inject 100 mL intravenously as directed. CPAP/BIPAP/OTHER Type .CPAPSettings into a note to see current settings/supplies/DME information. CPAP/BIPAP/OTHER Type .CPAPSettings into a note to see current settings/supplies/DME information. exemestane (AROMASIN) 25 mg tablet Take 1 tablet by mouth once daily. TAKE AFTER A MEAL. Sharri Zavaleta, RN I have personally obtained or confirmed the work performed by ancillary clinical staff as described above and edited as necessary. PHYSICAL EXAMINATION: BP 129/71 Pulse 60 Ht 157.5 cm (5' 2 ) Wt 63.5 kg (140 lb) BMI 25.61 kg/m General appearance: Normal, Normal General Exam Skin: Skin color, texture, turgor normal. No rashes or lesions. Head: Normal Neck: Neck supple, no adenopathy; thyroid symmetric, normal size Lungs: Percussion normal. Good diaphragmatic excursion. Lungs clear to auscultation. Heart: PMI normal; normal rate, regular rhythm; normal heart sounds Abdomen: Abdomen soft, non-tender. BS normal. No masses, organomegaly Extremities: Normal exam of the extremities Neuro: Gait normal. CARDIOVASCULAR MEDICINE TESTIN Hour Holter 09/18/2020 IMPRESSIONS AND FINDINGS: Atrial Fibrillation (100%) with frequent (10%) episodes of slow ventricular response, frequent episodes (3%) of rapid ventricular response, rare ventricular ectopy, four pauses greater than 2 seconds. Longest pause 2.45 seconds was at 2:01 am , Day 1. Maximum HR 119 bpm, minimum HR 45 bpm, average HR 66 bpm. Rare ventricular ectopy seen in singles, couplets, triplets, bigeminal cycles, VT runs. Longest VT run 5 beats at 127 bpm was at 4:07 pm, Day 1. Fastest VT run 4 beats at 173 bpm was at 1:47 pm, Day 1. Patient noted symptoms Out of breath did correlate with atrial fibrillation (HR 65-110 bpm). Event marker was activated. I have personally reviewed the Electrocardiogram and Holter. IMPRESSION: Ms. Orquidea Adan is a 76 year old female with chronic atrial fibrillation with a controlled ventricular response, 60 bpm today on the ECG. The patient is on Eliquis and Metoprolol. No bleeding, patient is also followed by Dr. Chan. Exam is normal today. The short Nonsustained VT on the holter in the setting of normal LV systolic function is not of concern. The patient was noted to have an elevation of BNP. PLAN AND RECOMMENDATIONS: The patient will follow with Dr. Chan. I personally interviewed, confirmed and edited the above information as obtained by others. [place] [id number] November 19, 2021 9:35 AM documented in this encounter [facility] 11-12-2021 Miscellaneous Notes Patient notified and will contact registered massage therapist. Angy Schultz LPN Please inform pt. Thank you. Nimisha Aleman APRN.EUNICE Okay from oncology standpoint. Vladimir Thao DO Pt. was seen by Endo 2020. Recommending reclast dx osteoporosis. Wanted your opinion to start. Thank you. Nimisha Aleman APRN.EUNICE documented in this encounter [facility] 11-08-2021 Instructions Tala Negron MD - 11/08/2021 10:43 AM EDT Take 1/2 tablet of your 40 mg Lipitor daily for the next week and call with update on leg swelling. documented in this encounter [facility] 11-08-2021 History of Present illness Narrative Chief Complaint Patient presents with: Follow Up: 3 month HPI Queenie Adan is a 76 year old female who presents here today for 3 month follow up. Treated for pneumonia back in September with doxycycline after CXR showed possible right upper lobe and left basilar pneumonia. Repeat CXR on 10/28 showed improvement. Denies cough, SOB, or fever today. Patient complaining today of pain in her legs since we increased her statin medication. Would like to try going back to 20 mg dose to see if pain improves. Prediabetes: A1c improved from 6.4 to 6.1 on metformin BID without side effects. Sticking to low carb diet most of the time. Would like to continue current regimen. Has booklet at home for meal planning. CAMRYN: using CPAP on a nightly basis and is waking up feeling well rested. Past medical history, appointments, medications, allergies reviewed. Previous Medical History PAST MEDICAL HISTORY Diagnosis Date A-fib ([facility]) Dr. Cody Breast cancer ([facility]) 1998 lobular, left side. Stage I, ER+/IN+/HER2-. Seeing Dr. 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, estrogen receptor positive (HCC) 01/09/2017 Osteoarthritis, knee Pancreatic cyst 11/2019 Pancreatitis PONV (postoperative nausea and vomiting) Prediabetes Recurrent seroma of breast S/P ablation of atrial fibrillation 2009 Sleep apnea on CPAP Vaginal dryness Varicose veins of both lower extremities Previous Surgical History PAST SURGICAL HISTORY Procedure Laterality Date ABLATION CATHETER 09/2014 venous ablation left GSV AFIB ABLATION/PULM VEIN ISOLATION 2010 APPENDECTOMY 1957 BREAST BIOPSY 1973 benign BREAST LUMPECTOMY HX Left 1998 left breast: 08/02 nodes; s/p Adj Chemo & Adj Radt CARDIAC CATHETERIZATION HX 07/2014 ostail LAD 35% COLONOSCOPY 06/2016 5 mm polyp. repeat in 5 years EXC CYST/ABERRANT BREAST TISSUE OPEN / LESION 03/21/2020 EXCISION MALIGNANT LESIONS,TRUNK,ARMS,LEGS Left 03/11/2017 Re-Excision of Left Mast site: negative for cancer MASTECTOMY, SIMPLE, COMPLETE Left 02/12/2017 Left Compl Mast: pT1cNx, ER/IN+, HER2 Neg IDC w/Radial Margin MIDLINE INSERTION/CONSULT 08/17/2020 NIPPLE EXPLORATION Right 2013 ductal excision Right breast OTHER 2007 left knee ligament replacement OTHER 07/2020 Pancreatic surgery PAST SURGICAL HISTORY OF 11/2019 pancreatic cyst fluid removal REMOVE CATARACT, INSERT LENS,EX Bilateral Family History FAMILY HISTORY Problem Relation Age of Onset Breast Cancer Mother Heart Mother 95 Thyroid Mother Coronary Artery Disease Father 75 Prostate Cancer Brother pancreatic Prostate Cancer Brother Hypertension Brother Cancer Brother Mantle Cell Lymphnomas - dx last month Hypertension Brother Hypertension Brother Thyroid Brother Hypertension Brother Hypertension Brother Breast Cancer Maternal Aunt lived til 103 Patient Allergies 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 [place] [Hydrocodone-* Vomiting Penicillins Other: See Comments blisters Current Medications Current Outpatient Medications on File Prior to Visit Medication Sig metFORMIN (GLUCOPHAGE) 500 mg tablet Take 1 tablet by mouth twice daily with meals. CPAP/BIPAP/OTHER Type .CPAPSettings into a note to see current settings/supplies/DME information. ramipril (ALTACE) 10 mg capsule Take 1 capsule by mouth twice daily. apixaban (ELIQUIS) 5 mg tab(s) Take 1 tablet by mouth twice daily. (restart 12/09/19) amLODIPine (NORVASC) 5 mg tablet Take 1 tablet by mouth once daily. atorvastatin (LIPITOR) 40 mg tablet Take 1 tablet by mouth once daily. metoprolol succinate ER (TOPROL XL) 25 mg 24 hr tablet TAKE 1 TABLET BY MOUTH EVERYDAY AT BEDTIME CPAP/BIPAP/OTHER Type .CPAPSettings into a note to see current settings/supplies/DME information. potassium chloride ER (K-DUR, KLOR-CON) 20 mEq tablet Take 2 tablets by mouth twice daily. 40 meq alternating with 80 meq every other day furosemide (LASIX) 40 mg tablet Take 1 tablet by mouth every 48 hours AND 2 tablets every 48 hours. Alternate 40 mg daily with 80 mg daily. palbociclib (IBRANCE) 125 mg tablet Take 1 tablet (125mg) by mouth once daily for 21 days on then 7 days off. Take with or without food. biotin 5,000 mcg subl Dissolve 1 tablet under the tongue once daily. exemestane (AROMASIN) 25 mg tablet Take 1 tablet by mouth once daily. TAKE AFTER A MEAL. Famotidine-Ca Carb-Mag Hydrox (PEPCID COMPLETE) 10-800-165 mg chew Take 1 tablet by mouth once daily as needed. [id number]-[id number]-ast [phone] mg cap Take 1 tablet by mouth. cholecalciferol, vitamin D3, (VITAMIN D3 ORAL) Take 1,000 Units by mouth twice daily. vit A/vit C/vit E/zinc/copper (PRESERVISION AREDS ORAL) Take 1 tablet by mouth twice daily. CPAP Pressure changed in my office to Autopap 9.5-15 cm H2O, Heat Humidity & heated Tubing (JIMBO) suitable mask, [employer] supplies, opt Chinstrap, G47.33. gluc benitez/chondro benitez A/vit C/Mn (GLUCOSAMINE-CHONDROITIN COMPLX ORAL) Take 1 tablet by mouth once daily. Coenzyme Q10 (CO Q-10) 300 mg cap Take 300 mg by mouth once daily. melatonin 3 mg Take 5 mg by mouth daily at bedtime. acetaminophen (TYLENOL EXTRA STRENGTH) 500 mg tablet Take 1,000 mg by mouth as needed. No current facility-administered medications on file prior to visit. Social History Social History Tobacco Use Smoking status: Never Smoker Smokeless tobacco: Never Used Vaping Use Vaping Use: Never used Substance Use Topics Alcohol use: Yes Comment: rare, maybe one drink a month Drug use: No Review of Symptoms REVIEW OF SYSTEMS GENERAL: No weight loss, malaise or fevers RESPIRATORY: Negative for cough, hemoptysis, wheezing, COPD, dyspnea or shortness of breath CARDIOVASCULAR: Negative for chest pain, leg swelling, hypertension, CHF or palpitations GI: No nausea, vomiting, or diarrhea SKIN: Negative for lesions, rash, and itching EXAM: BP 108/70 Pulse 62 Resp 16 Wt 65 kg (143 lb 3.2 oz) SpO2 96% BMI 26.19 kg/m General Appearance: Well appearing, alert, in no acute distress, well-hydrated, well nourished.. Skin: Skin color, texture, turgor normal, no suspicious rashes or lesions. Lungs: Lungs clear to auscultation. No wheezing, rhonchi, rales.. Heart: RRR without murmur, gallop, or rubs. No ectopy. Abdomen: Normal abdominal exam, Abdomen soft, non-tender. Bowel sounds normal. No masses, organomegaly. Extremities: No deformities, edema, skin discoloration, clubbing or cyanosis. Good capillary refill. . Health Maintenance List SHINGRIX VACCINE(1 of 2) Never done COVID-19 VACCINE(4 - Booster for Moderna series) due on 05/16/2021 ADVANCE DIRECTIVE DISCUSSION Never done LDL CHOLESTEROL due on 08/01/2022 DEPRESSION SCREENING due on 08/15/2022 ANNUAL PCP TEAM CHRONIC DISEASE VISIT due on 10/14/2022 BP CONTROLLED (<130/80) due on 10/14/2022 DIABETES SCREEN due on 11/07/2024 DTAP,TDAP,TD(2 - Td or Tdap) due on 08/05/2028 BONE DENSITY Completed INFLUENZA Completed HEPATITIS C SCREENING Completed PNEUMOVAX AGE 65 AND OVER WITH 5YR LOOKBACK Completed MENINGOCOCCAL CONJUGATE Aged Out Data reviewed Component Latest Ref Rng & Units 10/14/2021 11/07/2021 WBC 3.70 - 11.00 k/uL 5.42 3.30 (L) RBC 3.90 - 5.20 m/uL 3.07 (L) 3.10 (L) Hemoglobin 11.5 - 15.5 g/dL 11.1 (L) 11.6 Hematocrit 36.0 - 46.0 % 32.6 (L) 33.5 (L) MCV 80.0 - 100.0 fL 106.2 (H) 108.1 (H) MCH 26.0 - 34.0 pg 36.2 (H) 37.4 (H) MCHC 30.5 - 36.0 g/dL 34.0 34.6 RDW-CV 11.5 - 15.0 % 16.3 (H) 16.7 (H) Platelet Count 150 - 400 k/uL 435 (H) 206 MPV 9.0 - 12.7 fL 9.6 9.3 Neut% % 48.6 41.6 Abs Neut (ANC) 1.45 - 7.50 k/uL 2.64 1.37 (L) Lymph% % 32.5 37.0 Abs Lymph 1.00 - 4.00 k/uL 1.76 1.22 Nicholas% % 11.3 14.8 Abs Nicholas <0.87 k/uL 0.61 0.49 Eosin% % 4.2 2.7 Abs Eosin <0.46 k/uL 0.23 0.09 Baso% % 3.0 3.6 Abs Baso <0.11 k/uL 0.16 (H) 0.12 (H) Immature Gran % % 0.4 0.3 IMMATURE GRANS (ABS) <0.10 k/uL <0.03 <0.03 NRBC /100 WBC 0.0 0.0 Absolute nRBC <0.01 k/uL <0.01 <0.01 DTYPE Auto Auto Protein, Total 6.3 - 8.0 g/dL 7.6 Albumin 3.9 - 4.9 g/dL 4.7 Calcium 8.5 - 10.2 mg/dL 9.6 Bilirubin, Total 0.2 - 1.3 mg/dL 0.6 Alkaline Phosphatase 34 - 123 U/L 143 (H) AST 13 - 35 U/L 20 ALT 7 - 38 U/L 14 Glucose 74 - 99 mg/dL 161 (H) BUN 7 - 21 mg/dL 27 (H) Creatinine 0.58 - 0.96 mg/dL 0.84 Sodium 136 - 144 mmol/L 137 Potassium 3.7 - 5.1 mmol/L 3.8 Chloride 97 - 105 mmol/L 98 CO2 22 - 30 mmol/L 25 Anion Gap 9 - 18 mmol/L 14 eGFR >=60 mL/min/1.73m 72 Hemoglobin A1C 4.3 - 5.6 % 6.1 (H) Estimated Average Glucose mg/dL 128 NT Pro BNP <450 pg/mL 1,979 (H) ASSESSMENT/PLAN: 1. Myalgias - ICD9: 729.1, ICD10: M79.10 (primary diagnosis) Cut statin in half and call in 1 week with update. If not improving, will resume 40 mg dosage. 2. Bacterial pneumonia - ICD9: 482.9, ICD10: J15.9 Symptoms improved. Repeat CXR to confirm resolution. - XR CHEST 2V FRONTAL/LAT 3. WALKER (dyspnea on exertion) - ICD9: 786.09, ICD10: R06.00 Improving. Follow up with cardiology as scheduled and recheck CXR today. 4. Coronary artery disease involving [place] coronary artery of [place] heart with angina pectoris (HCC) - ICD9: 414.01, 413.9, ICD10: I25.119 Asymptomatic on medical management. F/u with cardiology as scheduled. 5. Atrial fibrillation, chronic (HCC) - ICD9: 427.31, ICD10: I48.20 Rate controlled on current regimen. Asymptomatic. Continue anticoagulation with Eliquis. 6. Prediabetes - ICD9: 790.29, ICD10: R73.03 Improving. Continue metformin and work on low carb diet. 7. Hypertension, essential - ICD9: 401.9, ICD10: I10 - good control - Continue current medication(s) - Encouraged dietary sodium restriction/DASH diet - Recommended regular aerobic exercise. - Reviewed risks of HTN and principles of treatment - Goal of BP <130/80 8. CAMRYN (obstructive sleep apnea) - ICD9: 327.23, ICD10: G47.33 Controlled on nightly CPAP. 9. Hyperlipidemia, mixed - ICD9: 272.2, ICD10: E78.2 - to be determined upon return of lab results - Decrease dose of statin as discussed. - Encouraged following a low fat, low cholesterol diet. - Discussed the benefits of regular aerobic exercise and weight loss. 10. Malignant neoplasm of overlapping sites of left breast in female, estrogen receptor positive (HCC) - ICD9: 174.8, V86.0, ICD10: C50.812, Z17.0 Follow up with heme/onc as scheduled. Tala Negron MD documented in this encounter [facility] 11-07-2021 Miscellaneous Notes Patient calls in and appointment for tomorrow rescheduled for 1020 am. Liza Hall, RN Reschedule 11/08 1140a appt to different time as 1140a is during STAMP meeting. documented in this encounter [facility] 10-28-2021 Miscellaneous Notes Insurance is requesting 90 day supply. Pended appropriately with pharmacy verified. RX INSTRUCTIONS: Patient aware RX will be sent to pharmacy. No need to notify patient. Last OV: 10/14/21 with PCP Last refill: 08/10/2021 With 60 and 5 refills Last oarrs report completed: N/A PLEASE REVIEW ON EPIC Follow up: 11/08/2021 with PCP Tera Jacinto MA documented in this encounter [facility] 10-28-2021 Miscellaneous Notes Patient notified of results, verbalizes understanding of instructions. Tera Jacinto MA ----- Message from Tala Negron MD sent at 10/28/2021 1:22 PM EDT ----- Chest xray shows chronic lung changes with improving right upper lobe pneumonia. As long as shortness of breath symptoms are improving from last OV, would not add new rx at this time. documented in this encounter [facility] 10-28-2021 History of Present illness Narrative Radiology Service Progress Note PATIENT NAME: Queenie Adan DATE OF SERVICE: October 28, 2021 TIME: 10:34 AM PATIENT IDENTITY VERIFICATION COMPLETED USING TWO (2) IDENTIFIERS: Name and Date of confirmed by patient verbally. FALL SCREENING: Has the patient had 2 falls in the last year or 1 fall with injury or currently using an Ambulatory Assistive Device (Walker, Cane, Wheelchair, Crutches, etc.)? No PATIENT GENDER DATA: Female. status: : No status: NO. PATIENT RELEVANT IMPLANT DATA REVIEWED: Yes RADIOLOGY DEPARTMENT: General X-ray: Exam(s) Completed: Chest X-Ray PERIPHERAL IV DATA: Not applicable SIGNED BY: RT Venessa(R) October 28, 2021 10:34 AM documented in this encounter [facility] 10-16-2021 Miscellaneous Notes Patient notified and voiced her understanding. Records faxed. Patient telephoned. Made aware of message below. Results faxed. Labs show mild stable anemia without infection. Also shows possible worsening of heart function with elevated BNP. This may be contributing to her SOB. I would recommend she contact Dr. Olivares's office about her symptoms for evaluation POP. Please fax results to Dr. Olivares's office. If she develops new symptoms of chest pain, leg swelling, palpitations, or worsening SOB would recommend calling 911 instead of waiting for further evaluation. documented in this encounter [facility] 10-14-2021 Miscellaneous Notes Spoke with patient. Given message from provider's office. Patient verbalizes understanding. Mita Scott RN Phoned patient and got her VM. Message left for her to return call for results and new orders. CXR shows possible right upper lowe and left basillar pneumonia. Will start patient on doxycycline for 10 days and recheck CXR in 2 weeks. Call/go to the ED if SOB worsens or she develops worsening cough, fever, chest pain, wheezing. documented in this encounter [facility] 10-14-2021 History of Present illness Narrative Chief Complaint Patient presents with: Breathing Problem: exacerbation of SOB with increased activity HPI Queenie Adan is a 76 year old female who presents here today for Above Complaints.. Patient states that symptoms started about 3 weeks ago. Was in [place] and developed some rhinorrhea and then the SOB in the last 1-2 weeks. Also notes that she has not had cough with the SOB, the but then states that she felt something in her throat and then coughed up some blood 2 weeks ago. Had small amount of blood in cough about a week ago as well. Dyspnea symptoms so severe that she had hard time walking through the airport last week and HR was up to the 140's while carrying her luggage. SOB while walking down the [place] to our office today, but was able to go to the gym this morning and spent 10 minutes on recumbent bike with mild SOB. Did not take anything for allergies when she had the rhinorrhea. Was not tested for COVID at any time with any of these symptoms. Patient is on Eliquis for a fib and has been compliant. Past medical history, appointments, medications, allergies reviewed. Previous Medical History PAST MEDICAL HISTORY Diagnosis Date A-fib ([facility]) Dr. Cody Breast cancer ([facility]) 1998 lobular, left side. Stage I, ER+/IN+/HER2-. Seeing Dr. 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, estrogen receptor positive (HCC) 01/09/2017 Osteoarthritis, knee Pancreatic cyst 11/2019 Pancreatitis PONV (postoperative nausea and vomiting) Prediabetes Recurrent seroma of breast S/P ablation of atrial fibrillation 2009 Sleep apnea on CPAP Vaginal dryness Varicose veins of both lower extremities Previous Surgical History PAST SURGICAL HISTORY Procedure Laterality Date ABLATION CATHETER 09/2014 venous ablation left GSV AFIB ABLATION/PULM VEIN ISOLATION 2010 APPENDECTOMY 1957 BREAST BIOPSY 1973 benign BREAST LUMPECTOMY HX Left 1998 left breast: 08/02 nodes; s/p Adj Chemo & Adj Radt CARDIAC CATHETERIZATION HX 07/2014 ostail LAD 35% COLONOSCOPY 06/2016 5 mm polyp. repeat in 5 years EXC CYST/ABERRANT BREAST TISSUE OPEN / LESION 03/21/2020 EXCISION MALIGNANT LESIONS,TRUNK,ARMS,LEGS Left 03/11/2017 Re-Excision of Left Mast site: negative for cancer MASTECTOMY, SIMPLE, COMPLETE Left 02/12/2017 Left Compl Mast: pT1cNx, ER/IN+, HER2 Neg IDC w/Radial Margin MIDLINE INSERTION/CONSULT 08/17/2020 NIPPLE EXPLORATION Right 2013 ductal excision Right breast OTHER 2008 left knee ligament replacement OTHER 07/2020 Pancreatic surgery PAST SURGICAL HISTORY OF 11/2019 pancreatic cyst fluid removal REMOVE CATARACT, INSERT LENS,EX Bilateral Family History FAMILY HISTORY Problem Relation Age of Onset Breast Cancer Mother Heart Mother 95 Thyroid Mother Coronary Artery Disease Father 75 Prostate Cancer Brother pancreatic Prostate Cancer Brother Hypertension Brother Cancer Brother Mantle Cell Lymphnomas - dx last month Hypertension Brother Hypertension Brother Thyroid Brother Hypertension Brother Hypertension Brother Breast Cancer Maternal Aunt lived til 103 Patient Allergies 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 [place] [Hydrocodone-* Vomiting Penicillins Other: See Comments blisters Current Medications Current Outpatient Medications on File Prior to Visit Medication Sig CPAP/BIPAP/OTHER Type .CPAPSettings into a note to see current settings/supplies/DME information. ramipril (ALTACE) 10 mg capsule Take 1 capsule by mouth twice daily. apixaban (ELIQUIS) 5 mg tab(s) Take 1 tablet by mouth twice daily. (restart 12/09/19) amLODIPine (NORVASC) 5 mg tablet Take 1 tablet by mouth once daily. atorvastatin (LIPITOR) 40 mg tablet Take 1 tablet by mouth once daily. metFORMIN (GLUCOPHAGE) 500 mg tablet Take 1 tablet by mouth twice daily with meals. metoprolol succinate ER (TOPROL XL) 25 mg 24 hr tablet TAKE 1 TABLET BY MOUTH EVERYDAY AT BEDTIME CPAP/BIPAP/OTHER Type .CPAPSettings into a note to see current settings/supplies/DME information. potassium chloride ER (K-DUR, KLOR-CON) 20 mEq tablet Take 2 tablets by mouth twice daily. 40 meq alternating with 80 meq every other day furosemide (LASIX) 40 mg tablet Take 1 tablet by mouth every 48 hours AND 2 tablets every 48 hours. Alternate 40 mg daily with 80 mg daily. acetaminophen (TYLENOL EXTRA STRENGTH) 500 mg tablet Take 1,000 mg by mouth as needed. palbociclib (IBRANCE) 125 mg tablet Take 1 tablet (125mg) by mouth once daily for 21 days on then 7 days off. Take with or without food. biotin 5,000 mcg subl Dissolve 1 tablet under the tongue once daily. exemestane (AROMASIN) 25 mg tablet Take 1 tablet by mouth once daily. TAKE AFTER A MEAL. Famotidine-Ca Carb-Mag Hydrox (PEPCID COMPLETE) 10-800-165 mg chew Take 1 tablet by mouth once daily as needed. [id number]-[id number]-ast [phone] mg cap Take 1 tablet by mouth. cholecalciferol, vitamin D3, (VITAMIN D3 ORAL) Take 2,000 Units by mouth twice daily. vit A/vit C/vit E/zinc/copper (PRESERVISION AREDS ORAL) Take 1 tablet by mouth twice daily. CPAP Pressure changed in my office to Autopap 9.5-15 cm H2O, Heat Humidity & heated Tubing (JIMBO) suitable mask, [employer] supplies, opt Chinstrap, G47.33. gluc benitez/chondro benitez A/vit C/Mn (GLUCOSAMINE-CHONDROITIN COMPLX ORAL) Take 1 tablet by mouth once daily. Coenzyme Q10 (CO Q-10) 300 mg cap Take 300 mg by mouth once daily. melatonin 3 mg Take 5 mg by mouth daily at bedtime. No current facility-administered medications on file prior to visit. Social History Social History Tobacco Use Smoking status: Never Smoker Smokeless tobacco: Never Used Vaping Use Vaping Use: Never used Substance Use Topics Alcohol use: Yes Comment: rare, maybe one drink a month Drug use: No Review of Symptoms REVIEW OF SYSTEMS GENERAL: No weight loss, malaise or fevers RESPIRATORY: See HPI CARDIOVASCULAR: Negative for chest pain, leg swelling, hypertension, CHF or palpitations GI: No nausea, vomiting, or diarrhea SKIN: Negative for lesions, rash, and itching EXAM: BP 106/60 Pulse 80 Resp 20 Wt 65.5 kg (144 lb 6.4 oz) SpO2 97% BMI 26.41 kg/m General Appearance: Well appearing, alert, in no acute distress, well-hydrated, well nourished. Able to talk in complete sentences. Skin: Skin color, texture, turgor normal, no suspicious rashes or lesions. Lungs: Lungs clear to auscultation. No wheezing, rhonchi, rales..Not using accessory muscles or retracting. Heart: irregularly irregular rhythm without murmur, gallop, or rubs. No ectopy. Extremities: No deformities, edema, skin discoloration, clubbing or cyanosis. Good capillary refill. . Health Maintenance List SHINGRIX VACCINE(1 of 2) Never done COVID-19 VACCINE(4 - Booster for Moderna series) due on 05/16/2021 ADVANCE DIRECTIVE DISCUSSION Never done LDL CHOLESTEROL due on 08/01/2022 ANNUAL PCP TEAM CHRONIC DISEASE VISIT due on 08/10/2022 BP CONTROLLED (<130/80) due on 08/10/2022 DEPRESSION SCREENING due on 08/15/2022 DIABETES SCREEN due on 10/10/2024 DTAP,TDAP,TD(2 - Td or Tdap) due on 08/05/2028 BONE DENSITY Completed INFLUENZA Completed HEPATITIS C SCREENING Completed PNEUMOVAX AGE 65 AND OVER WITH 5YR LOOKBACK Completed MENINGOCOCCAL CONJUGATE Aged Out Data reviewed EKG: a fib with anteroseptal infarct, age undetermined. Abnormal EKG (no change compared to 08/2020) ASSESSMENT/PLAN: 1. WALKER (dyspnea on exertion) - ICD9: 786.09, ICD10: R06.00 (primary diagnosis) EKG today unchanged compared to 1 year ago. Will obtain labs and CXR to rule out anemia, heart failure, pneumonia, pleural effusion. Recommend she follow up with her office assistant receptionist for additional cardiac workup. Red flags for re-assessment reviewed with patient in detail. - ECG COMPLETE - XR CHEST 2V FRONTAL/LAT - CBC + DIFF - NT PRO BNP 2. Hemoptysis - ICD9: 786.30, ICD10: R04.2 Obtain labs as ordered. To go to the ED with recurrent symptoms. Tala Negron MD documented in this encounter [facility] 10-14-2021 History of Present illness Narrative POPULATION HEALTH NAVIGATION OUTREACH Action/FYI Spoke with pt. Pt scheduled to see Dr. Negron today, 10/14/21 for worsening SOB with activity. Pt identified by name and : YES, via phone Outreach Outcome/Action Spoke to patient or caregiver: Patient scheduled Reason for Outreach Community Monitoring [place] Payer: Payor: MEDICARE / Plan: MEDICARE A AND B / Product Type: Medicare / Care Gap Reviewed:: Follow-up appointment Reminder: Reminder note to check Health Maintenance for items below Health Maintenance items due: SHINGRIX VACCINE(1 of 2) Never done COVID-19 VACCINE(4 - Booster for Moderna series) due on 05/16/2021 ADVANCE DIRECTIVE DISCUSSION Never done Message Sent to Practice: No Navigation Signature: Felicity Redmond MA October 14, 2021 11:36 AM [facility] ESCALATION Provider Action/FYI: Please call pt to schedule appt within the next 2 days. Thank you. Pt reported new or worsening sob w/activity via [facility] Spoke to pt, states she was in [place] for 3 weeks where the pollen was high and air pollution was really bad . Allergies were really bad , she started taking Claritin which helped a little, was having a lot of drainage, productive cough w/clear phlegm, and blowing nose a lot. Pt states she was also having some sob while lying flat, slept in a recliner a couplke of times and was fine, states since being back she has continued to sleep in her recliner has not tried to lay flat. Pt also reports increased fatigue, states she did go to the gym this morning with no issues, did fall asleep in her recliner when she returned home. Pt states she did miss a 2 days, not in a row, of taking Lasix. One day was when she was due for 80 mg. Pt has been weighing herself daily with no weight gain. Pt speaking in full sentences with no sob, cough or wheeze. Pt agreeable to be seen within the next 2 days, and also to go to Urgent Care if symptoms worsen. Message received via: InSight - Yes contact made with patient ACTION TAKEN: Based on loan review analyst, the following disposition is advised: SYMPTOMS PRESENT NOT SEVERE: Visit (Telehealth, Virtual or In Office) with PCP within 48 hours - Routed to [facility] [[id number]] - End outreach / Phone Call documented in this encounter [facility] documented as of this encounter (statuses as of 10/09/2021) [facility] History of Past illness Narrative* Problem Noted Date Resolved Date Adenopathy 12/25/2020 03/25/2021 Nausea with vomiting 08/17/2020 08/20/2020 Last Assessment & Plan: Assessment: 200cc bilious emesis 08/16 PLAN: -Protonix 40mg IV daily -Compazine 5mg IV q6hr PRN Primary hypertension 01/20/2017 08/05/2018 A-fib 03/06/2017 HTN (hypertension) 03/06/2017 documented as of this encounter (statuses as of 10/14/2021) [facility] History of Past illness Narrative* Problem Noted Date Resolved Date Adenopathy 12/25/2020 03/25/2021 Nausea with vomiting 08/17/2020 08/20/2020 Last Assessment & Plan: Assessment: 200cc bilious emesis 08/16 PLAN: -Protonix 40mg IV daily -Compazine 5mg IV q6hr PRN Primary hypertension 01/20/2017 08/05/2018 A-fib 03/06/2017 HTN (hypertension) 03/06/2017 documented as of this encounter (statuses as of 10/14/2021) [address]-2021 History of Past illness Narrative* Problem Noted Date Resolved Date Adenopathy 12/25/2020 03/25/2021 Nausea with vomiting 08/17/2020 08/20/2020 Last Assessment & Plan: Assessment: 200cc bilious emesis 08/16 PLAN: -Protonix 40mg IV daily -Compazine 5mg IV q6hr PRN Primary hypertension 01/20/2017 08/05/2018 A-fib 03/06/2017 HTN (hypertension) 03/06/2017 documented as of this encounter (statuses as of 10/17/2021) [address]2021 History of Past illness Narrative* Problem Noted Date Resolved Date Adenopathy 12/25/2020 03/25/2021 Nausea with vomiting 08/17/2020 08/20/2020 Last Assessment & Plan: Assessment: 200cc bilious emesis 08/16 PLAN: -Protonix 40mg IV daily -Compazine 5mg IV q6hr PRN Primary hypertension 01/20/2017 08/05/2018 A-fib 03/06/2017 HTN (hypertension) 03/06/2017 documented as of this encounter (statuses as of 10/17/2021) [facility] History of Past illness Narrative* Problem Noted Date Resolved Date Adenopathy 12/25/2020 03/25/2021 Nausea with vomiting 08/17/2020 08/20/2020 Last Assessment & Plan: Assessment: 200cc bilious emesis 08/16 PLAN: -Protonix 40mg IV daily -Compazine 5mg IV q6hr PRN Primary hypertension 01/20/2017 08/05/2018 A-fib 03/06/2017 HTN (hypertension) 03/06/2017 documented as of this encounter (statuses as of 10/18/2021) [facility] History of Past illness Narrative* Problem Noted Date Resolved Date Adenopathy 12/25/2020 03/25/2021 Nausea with vomiting 08/17/2020 08/20/2020 Last Assessment & Plan: Assessment: 200cc bilious emesis 08/16 PLAN: -Protonix 40mg IV daily -Compazine 5mg IV q6hr PRN Primary hypertension 01/20/2017 08/05/2018 A-fib 03/06/2017 HTN (hypertension) 03/06/2017 documented as of this encounter (statuses as of 10/28/2021) [facility] History of Past illness Narrative* Problem Noted Date Resolved Date Adenopathy 12/25/2020 03/25/2021 Nausea with vomiting 08/17/2020 08/20/2020 Last Assessment & Plan: Assessment: 200cc bilious emesis 08/16 PLAN: -Protonix 40mg IV daily -Compazine 5mg IV q6hr PRN Primary hypertension 01/20/2017 08/05/2018 A-fib 03/06/2017 HTN (hypertension) 03/06/2017 documented as of this encounter (statuses as of 10/28/2021) [facility] History of Past illness Narrative* Problem Noted Date Resolved Date Adenopathy 12/25/2020 03/25/2021 Nausea with vomiting 08/17/2020 08/20/2020 Last Assessment & Plan: Assessment: 200cc bilious emesis 08/16 PLAN: -Protonix 40mg IV daily -Compazine 5mg IV q6hr PRN Primary hypertension 01/20/2017 08/05/2018 A-fib 03/06/2017 HTN (hypertension) 03/06/2017 documented as of this encounter (statuses as of 10/29/2021) [facility] History of Past illness Narrative* Problem Noted Date Resolved Date Adenopathy 12/25/2020 03/25/2021 Nausea with vomiting 08/17/2020 08/20/2020 Last Assessment & Plan: Assessment: 200cc bilious emesis 08/16 PLAN: -Protonix 40mg IV daily -Compazine 5mg IV q6hr PRN Primary hypertension 01/20/2017 08/05/2018 A-fib 03/06/2017 HTN (hypertension) 03/06/2017 documented as of this encounter (statuses as of 11/07/2021) [facility] History of Past illness Narrative* Problem Noted Date Resolved Date Adenopathy 12/25/2020 03/25/2021 Nausea with vomiting 08/17/2020 08/20/2020 Last Assessment & Plan: Assessment: 200cc bilious emesis 08/16 PLAN: -Protonix 40mg IV daily -Compazine 5mg IV q6hr PRN Primary hypertension 01/20/2017 08/05/2018 A-fib 03/06/2017 HTN (hypertension) 03/06/2017 documented as of this encounter (statuses as of 11/08/2021) [facility] History of Past illness Narrative* Problem Noted Date Resolved Date Adenopathy 12/25/2020 03/25/2021 Nausea with vomiting 08/17/2020 08/20/2020 Last Assessment & Plan: Assessment: 200cc bilious emesis 08/16 PLAN: -Protonix 40mg IV daily -Compazine 5mg IV q6hr PRN Primary hypertension 01/20/2017 08/05/2018 A-fib 03/06/2017 HTN (hypertension) 03/06/2017 documented as of this encounter (statuses as of 11/12/2021) [facility] History of Past illness Narrative* Problem Noted Date Resolved Date Adenopathy 12/25/2020 03/25/2021 Nausea with vomiting 08/17/2020 08/20/2020 Last Assessment & Plan: Assessment: 200cc bilious emesis 08/16 PLAN: -Protonix 40mg IV daily -Compazine 5mg IV q6hr PRN Primary hypertension 01/20/2017 08/05/2018 A-fib 03/06/2017 HTN (hypertension) 03/06/2017 documented as of this encounter (statuses as of 11/13/2021) [facility] History of Past illness Narrative* Problem Noted Date Resolved Date Adenopathy 12/25/2020 03/25/2021 Nausea with vomiting 08/17/2020 08/20/2020 Last Assessment & Plan: Assessment: 200cc bilious emesis 08/16 PLAN: -Protonix 40mg IV daily -Compazine 5mg IV q6hr PRN Primary hypertension 01/20/2017 08/05/2018 A-fib 03/06/2017 HTN (hypertension) 03/06/2017 documented as of this encounter (statuses as of 11/15/2021) [facility] History of Past illness Narrative* Problem Noted Date Resolved Date Adenopathy 12/25/2020 03/25/2021 Nausea with vomiting 08/17/2020 08/20/2020 Last Assessment & Plan: Assessment: 200cc bilious emesis 08/16 PLAN: -Protonix 40mg IV daily -Compazine 5mg IV q6hr PRN Primary hypertension 01/20/2017 08/05/2018 A-fib 03/06/2017 HTN (hypertension) 03/06/2017 documented as of this encounter (statuses as of 11/19/2021) [facility] History of Past illness Narrative* Problem Noted Date Resolved Date Adenopathy 12/25/2020 03/25/2021 Nausea with vomiting 08/17/2020 08/20/2020 Last Assessment & Plan: Assessment: 200cc bilious emesis 08/16 PLAN: -Protonix 40mg IV daily -Compazine 5mg IV q6hr PRN Primary hypertension 01/20/2017 08/05/2018 A-fib 03/06/2017 HTN (hypertension) 03/06/2017 documented as of this encounter (statuses as of 11/21/2021) [facility] History of Past illness Narrative* Problem Noted Date Resolved Date Adenopathy 12/25/2020 03/25/2021 Nausea with vomiting 08/17/2020 08/20/2020 Last Assessment & Plan: Assessment: 200cc bilious emesis 08/16 PLAN: -Protonix 40mg IV daily -Compazine 5mg IV q6hr PRN Primary hypertension 01/20/2017 08/05/2018 A-fib 03/06/2017 HTN (hypertension) 03/06/2017 documented as of this encounter (statuses as of 11/22/2021) [address]21 History of Past illness Narrative* Problem Noted Date Resolved Date Adenopathy 12/25/2020 03/25/2021 Nausea with vomiting 08/17/2020 08/20/2020 Last Assessment & Plan: Assessment: 200cc bilious emesis 08/16 PLAN: -Protonix 40mg IV daily -Compazine 5mg IV q6hr PRN Primary hypertension 01/20/2017 08/05/2018 A-fib 03/06/2017 HTN (hypertension) 03/06/2017 documented as of this encounter (statuses as of 11/22/2021) [facility] History of Past illness Narrative* Problem Noted Date Resolved Date Adenopathy 12/25/2020 03/25/2021 Nausea with vomiting 08/17/2020 08/20/2020 Last Assessment & Plan: Assessment: 200cc bilious emesis 08/16 PLAN: -Protonix 40mg IV daily -Compazine 5mg IV q6hr PRN Primary hypertension 01/20/2017 08/05/2018 A-fib 03/06/2017 HTN (hypertension) 03/06/2017 documented as of this encounter (statuses as of 11/25/2021) [facility] History of Past illness Narrative* Problem Noted Date Resolved Date Adenopathy 12/25/2020 03/25/2021 Nausea with vomiting 08/17/2020 08/20/2020 Last Assessment & Plan: Assessment: 200cc bilious emesis 08/16 PLAN: -Protonix 40mg IV daily -Compazine 5mg IV q6hr PRN Primary hypertension 01/20/2017 08/05/2018 A-fib 03/06/2017 HTN (hypertension) 03/06/2017 documented as of this encounter (statuses as of 11/26/2021) [facility] History of Past illness Narrative* Problem Noted Date Resolved Date Adenopathy 12/25/2020 03/25/2021 Nausea with vomiting 08/17/2020 08/20/2020 Last Assessment & Plan: Assessment: 200cc bilious emesis 08/16 PLAN: -Protonix 40mg IV daily -Compazine 5mg IV q6hr PRN Primary hypertension 01/20/2017 08/05/2018 A-fib 03/06/2017 HTN (hypertension) 03/06/2017 documented as of this encounter (statuses as of 11/26/2021) [facility] History of Past illness Narrative* Problem Noted Date Resolved Date Adenopathy 12/25/2020 03/25/2021 Nausea with vomiting 08/17/2020 08/20/2020 Last Assessment & Plan: Assessment: 200cc bilious emesis 08/16 PLAN: -Protonix 40mg IV daily -Compazine 5mg IV q6hr PRN Primary hypertension 01/20/2017 08/05/2018 A-fib 03/06/2017 HTN (hypertension) 03/06/2017 documented as of this encounter (statuses as of 11/29/2021) [facility] History of Past illness Narrative* Problem Noted Date Resolved Date Adenopathy 12/25/2020 03/25/2021 Nausea with vomiting 08/17/2020 08/20/2020 Last Assessment & Plan: Assessment: 200cc bilious emesis 08/16 PLAN: -Protonix 40mg IV daily -Compazine 5mg IV q6hr PRN Primary hypertension 01/20/2017 08/05/2018 A-fib 03/06/2017 HTN (hypertension) 03/06/2017 documented as of this encounter (statuses as of 12/12/2021) [facility] History of Past illness Narrative* Problem Noted Date Resolved Date Adenopathy 12/25/2020 03/25/2021 Nausea with vomiting 08/17/2020 08/20/2020 Last Assessment & Plan: Assessment: 200cc bilious emesis 08/16 PLAN: -Protonix 40mg IV daily -Compazine 5mg IV q6hr PRN Primary hypertension 01/20/2017 08/05/2018 A-fib 03/06/2017 HTN (hypertension) 03/06/2017 documented as of this encounter (statuses as of 12/13/2021) [address]21 History of Past illness Narrative* Problem Noted Date Resolved Date Adenopathy 12/25/2020 03/25/2021 Nausea with vomiting 08/17/2020 08/20/2020 Last Assessment & Plan: Assessment: 200cc bilious emesis 08/16 PLAN: -Protonix 40mg IV daily -Compazine 5mg IV q6hr PRN Primary hypertension 01/20/2017 08/05/2018 A-fib 03/06/2017 HTN (hypertension) 03/06/2017 documented as of this encounter (statuses as of 12/20/2021) [address]21 History of Past illness Narrative* Problem Noted Date Resolved Date Adenopathy 12/25/2020 03/25/2021 Nausea with vomiting 08/17/2020 08/20/2020 Last Assessment & Plan: Assessment: 200cc bilious emesis 08/16 PLAN: -Protonix 40mg IV daily -Compazine 5mg IV q6hr PRN Primary hypertension 01/20/2017 08/05/2018 A-fib 03/06/2017 HTN (hypertension) 03/06/2017 documented as of this encounter (statuses as of 12/30/2021) [address]21 History of Past illness Narrative* Problem Noted Date Resolved Date Adenopathy 12/25/2020 03/25/2021 Nausea with vomiting 08/17/2020 08/20/2020 Last Assessment & Plan: Assessment: 200cc bilious emesis 08/16 PLAN: -Protonix 40mg IV daily -Compazine 5mg IV q6hr PRN Primary hypertension 01/20/2017 08/05/2018 A-fib 03/06/2017 HTN (hypertension) 03/06/2017 documented as of this encounter (statuses as of 01/06/2022) [address]21 History of Past illness Narrative* Problem Noted Date Resolved Date Adenopathy 12/25/2020 03/25/2021 Nausea with vomiting 08/17/2020 08/20/2020 Last Assessment & Plan: Assessment: 200cc bilious emesis 08/16 PLAN: -Protonix 40mg IV daily -Compazine 5mg IV q6hr PRN Primary hypertension 01/20/2017 08/05/2018 A-fib 03/06/2017 HTN (hypertension) 03/06/2017 documented as of this encounter (statuses as of 01/07/2022) [facility] History of Past illness Narrative* Problem Noted Date Resolved Date Adenopathy 12/25/2020 03/25/2021 Nausea with vomiting 08/17/2020 08/20/2020 Last Assessment & Plan: Assessment: 200cc bilious emesis 08/16 PLAN: -Protonix 40mg IV daily -Compazine 5mg IV q6hr PRN Primary hypertension 01/20/2017 08/05/2018 A-fib 03/06/2017 HTN (hypertension) 03/06/2017 documented as of this encounter (statuses as of 02/06/2022) [facility] History of Past illness Narrative* Problem Noted Date Resolved Date Adenopathy 12/25/2020 03/25/2021 Nausea with vomiting 08/17/2020 08/20/2020 Last Assessment & Plan: Assessment: 200cc bilious emesis 08/16 PLAN: -Protonix 40mg IV daily -Compazine 5mg IV q6hr PRN Primary hypertension 01/20/2017 08/05/2018 A-fib 03/06/2017 HTN (hypertension) 03/06/2017 documented as of this encounter (statuses as of 02/06/2022) [facility] History of Past illness Narrative* Problem Noted Date Resolved Date Adenopathy 12/25/2020 03/25/2021 Nausea with vomiting 08/17/2020 08/20/2020 Last Assessment & Plan: Assessment: 200cc bilious emesis 08/16 PLAN: -Protonix 40mg IV daily -Compazine 5mg IV q6hr PRN Primary hypertension 01/20/2017 08/05/2018 A-fib 03/06/2017 HTN (hypertension) 03/06/2017 documented as of this encounter (statuses as of 02/11/2022) [facility] History of Past illness Narrative* Problem Noted Date Resolved Date Adenopathy 12/25/2020 03/25/2021 Nausea with vomiting 08/17/2020 08/20/2020 Last Assessment & Plan: Assessment: 200cc bilious emesis 08/16 PLAN: -Protonix 40mg IV daily -Compazine 5mg IV q6hr PRN Primary hypertension 01/20/2017 08/05/2018 A-fib 03/06/2017 HTN (hypertension) 03/06/2017 documented as of this encounter (statuses as of 02/14/2022) [facility] History of Past illness Narrative* Problem Noted Date Resolved Date Adenopathy 12/25/2020 03/25/2021 Nausea with vomiting 08/17/2020 08/20/2020 Last Assessment & Plan: Assessment: 200cc bilious emesis 08/16 PLAN: -Protonix 40mg IV daily -Compazine 5mg IV q6hr PRN Primary hypertension 01/20/2017 08/05/2018 A-fib 03/06/2017 HTN (hypertension) 03/06/2017 documented as of this encounter (statuses as of 02/16/2022) [facility] History of Past illness Narrative* Problem Noted Date Resolved Date Adenopathy 12/25/2020 03/25/2021 Nausea with vomiting 08/17/2020 08/20/2020 Last Assessment & Plan: Assessment: 200cc bilious emesis 08/16 PLAN: -Protonix 40mg IV daily -Compazine 5mg IV q6hr PRN Primary hypertension 01/20/2017 08/05/2018 A-fib 03/06/2017 HTN (hypertension) 03/06/2017 documented as of this encounter (statuses as of 02/17/2022) [facility] History of Past illness Narrative* Problem Noted Date Resolved Date Adenopathy 12/25/2020 03/25/2021 Nausea with vomiting 08/17/2020 08/20/2020 Last Assessment & Plan: Assessment: 200cc bilious emesis 08/16 PLAN: -Protonix 40mg IV daily -Compazine 5mg IV q6hr PRN Primary hypertension 01/20/2017 08/05/2018 A-fib 03/06/2017 HTN (hypertension) 03/06/2017 documented as of this encounter (statuses as of 02/18/2022) [facility] History of Past illness Narrative* Problem Noted Date Resolved Date Adenopathy 12/25/2020 03/25/2021 Nausea with vomiting 08/17/2020 08/20/2020 Last Assessment & Plan: Assessment: 200cc bilious emesis 08/16 PLAN: -Protonix 40mg IV daily -Compazine 5mg IV q6hr PRN Primary hypertension 01/20/2017 08/05/2018 A-fib 03/06/2017 HTN (hypertension) 03/06/2017 documented as of this encounter (statuses as of 02/28/2022) [facility] History of Past illness Narrative* Problem Noted Date Resolved Date Adenopathy 12/25/2020 03/25/2021 Nausea with vomiting 08/17/2020 08/20/2020 Last Assessment & Plan: Assessment: 200cc bilious emesis 08/16 PLAN: -Protonix 40mg IV daily -Compazine 5mg IV q6hr PRN Primary hypertension 01/20/2017 08/05/2018 A-fib 03/06/2017 HTN (hypertension) 03/06/2017 documented as of this encounter (statuses as of 03/12/2022) [facility] History of Past illness Narrative* Problem Noted Date Resolved Date Adenopathy 12/25/2020 03/25/2021 Nausea with vomiting 08/17/2020 08/20/2020 Last Assessment & Plan: Assessment: 200cc bilious emesis 08/16 PLAN: -Protonix 40mg IV daily -Compazine 5mg IV q6hr PRN Primary hypertension 01/20/2017 08/05/2018 A-fib 03/06/2017 HTN (hypertension) 03/06/2017 documented as of this encounter (statuses as of 03/18/2022) [place] [address]-06-2021 History of Past illness Narrative* Problem Noted Date Resolved Date Adenopathy 12/25/2020 03/25/2021 Nausea with vomiting 08/17/2020 08/20/2020 Last Assessment & Plan: Assessment: 200cc bilious emesis 08/16 PLAN: -Protonix 40mg IV daily -Compazine 5mg IV q6hr PRN Primary hypertension 01/20/2017 08/05/2018 A-fib 03/06/2017 HTN (hypertension) 03/06/2017 documented as of this encounter (statuses as of 03/21/2022) [address]21 History of Past illness Narrative* Problem Noted Date Resolved Date Adenopathy 12/25/2020 03/25/2021 Nausea with vomiting 08/17/2020 08/20/2020 Last Assessment & Plan: Assessment: 200cc bilious emesis 08/16 PLAN: -Protonix 40mg IV daily -Compazine 5mg IV q6hr PRN Primary hypertension 01/20/2017 08/05/2018 A-fib 03/06/2017 HTN (hypertension) 03/06/2017 documented as of this encounter (statuses as of 05/21/2022) [address]21 History of Past illness Narrative* Problem Noted Date Resolved Date Adenopathy 12/25/2020 03/25/2021 Nausea with vomiting 08/17/2020 08/20/2020 Last Assessment & Plan: Assessment: 200cc bilious emesis 08/16 PLAN: -Protonix 40mg IV daily -Compazine 5mg IV q6hr PRN Primary hypertension 01/20/2017 08/05/2018 A-fib 03/06/2017 HTN (hypertension) 03/06/2017 documented as of this encounter (statuses as of 05/23/2022) [facility] History of Past illness Narrative* Problem Noted Date Resolved Date Adenopathy 12/25/2020 03/25/2021 Nausea with vomiting 08/17/2020 08/20/2020 Last Assessment & Plan: Assessment: 200cc bilious emesis 08/16 PLAN: -Protonix 40mg IV daily -Compazine 5mg IV q6hr PRN Primary hypertension 01/20/2017 08/05/2018 A-fib 03/06/2017 HTN (hypertension) 03/06/2017 documented as of this encounter (statuses as of 05/26/2022) [facility] History of Past illness Narrative* Problem Noted Date Resolved Date Adenopathy 12/25/2020 03/25/2021 Nausea with vomiting 08/17/2020 08/20/2020 Last Assessment & Plan: Assessment: 200cc bilious emesis 08/16 PLAN: -Protonix 40mg IV daily -Compazine 5mg IV q6hr PRN Primary hypertension 01/20/2017 08/05/2018 A-fib 03/06/2017 HTN (hypertension) 03/06/2017 documented as of this encounter (statuses as of 05/26/2022) [facility] History of Past illness Narrative* Problem Noted Date Resolved Date Adenopathy 12/25/2020 03/25/2021 Nausea with vomiting 08/17/2020 08/20/2020 Last Assessment & Plan: Assessment: 200cc bilious emesis 08/16 PLAN: -Protonix 40mg IV daily -Compazine 5mg IV q6hr PRN Primary hypertension 01/20/2017 08/05/2018 A-fib 03/06/2017 HTN (hypertension) 03/06/2017 documented as of this encounter (statuses as of 06/10/2022) [facility] History of Past illness Narrative* Problem Noted Date Resolved Date Adenopathy 12/25/2020 03/25/2021 Nausea with vomiting 08/17/2020 08/20/2020 Last Assessment & Plan: Assessment: 200cc bilious emesis 08/16 PLAN: -Protonix 40mg IV daily -Compazine 5mg IV q6hr PRN Primary hypertension 01/20/2017 08/05/2018 A-fib 03/06/2017 HTN (hypertension) 03/06/2017 documented as of this encounter (statuses as of 07/02/2022) [facility] History of Past illness Narrative* Problem Noted Date Resolved Date Adenopathy 12/25/2020 03/25/2021 Nausea with vomiting 08/17/2020 08/20/2020 Last Assessment & Plan: Assessment: 200cc bilious emesis 08/16 PLAN: -Protonix 40mg IV daily -Compazine 5mg IV q6hr PRN Primary hypertension 01/20/2017 08/05/2018 A-fib 03/06/2017 HTN (hypertension) 03/06/2017 documented as of this encounter (statuses as of 07/07/2022) [facility] History of Past illness Narrative* Problem Noted Date Resolved Date Adenopathy 12/25/2020 03/25/2021 Nausea with vomiting 08/17/2020 08/20/2020 Last Assessment & Plan: Assessment: 200cc bilious emesis 08/16 PLAN: -Protonix 40mg IV daily -Compazine 5mg IV q6hr PRN Primary hypertension 01/20/2017 08/05/2018 A-fib 03/06/2017 HTN (hypertension) 03/06/2017 documented as of this encounter (statuses as of 07/08/2022) [facility] History of Past illness Narrative* Problem Noted Date Resolved Date Adenopathy 12/25/2020 03/25/2021 Nausea with vomiting 08/17/2020 08/20/2020 Last Assessment & Plan: Assessment: 200cc bilious emesis 08/16 PLAN: -Protonix 40mg IV daily -Compazine 5mg IV q6hr PRN Primary hypertension 01/20/2017 08/05/2018 A-fib 03/06/2017 HTN (hypertension) 03/06/2017 documented as of this encounter (statuses as of 07/11/2022) [facility] History of Past illness Narrative* Problem Noted Date Resolved Date Adenopathy 12/25/2020 03/25/2021 Nausea with vomiting 08/17/2020 08/20/2020 Last Assessment & Plan: Assessment: 200cc bilious emesis 08/16 PLAN: -Protonix 40mg IV daily -Compazine 5mg IV q6hr PRN Primary hypertension 01/20/2017 08/05/2018 A-fib 03/06/2017 HTN (hypertension) 03/06/2017 documented as of this encounter (statuses as of 07/22/2022) [facility] History of Past illness Narrative* Problem Noted Date Resolved Date Adenopathy 12/25/2020 03/25/2021 Nausea with vomiting 08/17/2020 08/20/2020 Last Assessment & Plan: Assessment: 200cc bilious emesis 08/16 PLAN: -Protonix 40mg IV daily -Compazine 5mg IV q6hr PRN Primary hypertension 01/20/2017 08/05/2018 A-fib 03/06/2017 HTN (hypertension) 03/06/2017 documented as of this encounter (statuses as of 07/28/2022) [facility] History of Past illness Narrative* Problem Noted Date Resolved Date Adenopathy 12/25/2020 03/25/2021 Nausea with vomiting 08/17/2020 08/20/2020 Last Assessment & Plan: Assessment: 200cc bilious emesis 08/16 PLAN: -Protonix 40mg IV daily -Compazine 5mg IV q6hr PRN Primary hypertension 01/20/2017 08/05/2018 A-fib 03/06/2017 HTN (hypertension) 03/06/2017 documented as of this encounter (statuses as of 07/30/2022) [facility] History of Past illness Narrative* Problem Noted Date Resolved Date Adenopathy 12/25/2020 03/25/2021 Nausea with vomiting 08/17/2020 08/20/2020 Last Assessment & Plan: Assessment: 200cc bilious emesis 08/16 PLAN: -Protonix 40mg IV daily -Compazine 5mg IV q6hr PRN Primary hypertension 01/20/2017 08/05/2018 A-fib 03/06/2017 HTN (hypertension) 03/06/2017 documented as of this encounter (statuses as of 08/05/2022) [facility] History of Past illness Narrative* Problem Noted Date Resolved Date Adenopathy 12/25/2020 03/25/2021 Nausea with vomiting 08/17/2020 08/20/2020 Last Assessment & Plan: Assessment: 200cc bilious emesis 08/16 PLAN: -Protonix 40mg IV daily -Compazine 5mg IV q6hr PRN Primary hypertension 01/20/2017 08/05/2018 A-fib 03/06/2017 HTN (hypertension) 03/06/2017 documented as of this encounter (statuses as of 08/07/2022) [facility] History of Past illness Narrative* Problem Noted Date Resolved Date Adenopathy 12/25/2020 03/25/2021 Nausea with vomiting 08/17/2020 08/20/2020 Last Assessment & Plan: Assessment: 200cc bilious emesis 08/16 PLAN: -Protonix 40mg IV daily -Compazine 5mg IV q6hr PRN Primary hypertension 01/20/2017 08/05/2018 A-fib 03/06/2017 HTN (hypertension) 03/06/2017 documented as of this encounter (statuses as of 08/08/2022) [facility] History of Past illness Narrative* Problem Noted Date Resolved Date Adenopathy 12/25/2020 03/25/2021 Nausea with vomiting 08/17/2020 08/20/2020 Last Assessment & Plan: Assessment: 200cc bilious emesis 08/16 PLAN: -Protonix 40mg IV daily -Compazine 5mg IV q6hr PRN Primary hypertension 01/20/2017 08/05/2018 A-fib 03/06/2017 HTN (hypertension) 03/06/2017 documented as of this encounter (statuses as of 08/11/2022) [facility] History of Past illness Narrative* Problem Noted Date Resolved Date Adenopathy 12/25/2020 03/25/2021 Nausea with vomiting 08/17/2020 08/20/2020 Last Assessment & Plan: Assessment: 200cc bilious emesis 08/16 PLAN: -Protonix 40mg IV daily -Compazine 5mg IV q6hr PRN Primary hypertension 01/20/2017 08/05/2018 A-fib 03/06/2017 HTN (hypertension) 03/06/2017 documented as of this encounter (statuses as of 08/12/2022) [facility] History of Past illness Narrative* Problem Noted Date Resolved Date Adenopathy 12/25/2020 03/25/2021 Nausea with vomiting 08/17/2020 08/20/2020 Last Assessment & Plan: Assessment: 200cc bilious emesis 08/16 PLAN: -Protonix 40mg IV daily -Compazine 5mg IV q6hr PRN Primary hypertension 01/20/2017 08/05/2018 A-fib 03/06/2017 HTN (hypertension) 03/06/2017 documented as of this encounter (statuses as of 08/12/2022) [facility] History of Past illness Narrative* Problem Noted Date Resolved Date Adenopathy 12/25/2020 03/25/2021 Nausea with vomiting 08/17/2020 08/20/2020 Last Assessment & Plan: Assessment: 200cc bilious emesis 08/16 PLAN: -Protonix 40mg IV daily -Compazine 5mg IV q6hr PRN Primary hypertension 01/20/2017 08/05/2018 A-fib 03/06/2017 HTN (hypertension) 03/06/2017 documented as of this encounter (statuses as of 08/15/2022) [facility] History of Past illness Narrative* Problem Noted Date Resolved Date Adenopathy 12/25/2020 03/25/2021 Nausea with vomiting 08/17/2020 08/20/2020 Last Assessment & Plan: Assessment: 200cc bilious emesis 08/16 PLAN: -Protonix 40mg IV daily -Compazine 5mg IV q6hr PRN Primary hypertension 01/20/2017 08/05/2018 A-fib 03/06/2017 HTN (hypertension) 03/06/2017 documented as of this encounter (statuses as of 08/18/2022) [facility] History of Past illness Narrative* Problem Noted Date Resolved Date Adenopathy 12/25/2020 03/25/2021 Nausea with vomiting 08/17/2020 08/20/2020 Last Assessment & Plan: Assessment: 200cc bilious emesis 08/16 PLAN: -Protonix 40mg IV daily -Compazine 5mg IV q6hr PRN Primary hypertension 01/20/2017 08/05/2018 A-fib 03/06/2017 HTN (hypertension) 03/06/2017 documented as of this encounter (statuses as of 08/20/2022) [facility] History of Past illness Narrative* Problem Noted Date Resolved Date Adenopathy 12/25/2020 03/25/2021 Nausea with vomiting 08/17/2020 08/20/2020 Last Assessment & Plan: Assessment: 200cc bilious emesis 08/16 PLAN: -Protonix 40mg IV daily -Compazine 5mg IV q6hr PRN Primary hypertension 01/20/2017 08/05/2018 A-fib 03/06/2017 HTN (hypertension) 03/06/2017 documented as of this encounter (statuses as of 08/20/2022) [facility] History of Past illness Narrative* Problem Noted Date Resolved Date Adenopathy 12/25/2020 03/25/2021 Nausea with vomiting 08/17/2020 08/20/2020 Last Assessment & Plan: Assessment: 200cc bilious emesis 08/16 PLAN: -Protonix 40mg IV daily -Compazine 5mg IV q6hr PRN Primary hypertension 01/20/2017 08/05/2018 A-fib 03/06/2017 HTN (hypertension) 03/06/2017 documented as of this encounter (statuses as of 08/21/2022) [facility] History of Past illness Narrative* Problem Noted Date Resolved Date Adenopathy 12/25/2020 03/25/2021 Nausea with vomiting 08/17/2020 08/20/2020 Last Assessment & Plan: Assessment: 200cc bilious emesis 08/16 PLAN: -Protonix 40mg IV daily -Compazine 5mg IV q6hr PRN Primary hypertension 01/20/2017 08/05/2018 A-fib 03/06/2017 HTN (hypertension) 03/06/2017 documented as of this encounter (statuses as of 09/05/2022) [facility] History of Past illness Narrative* Problem Noted Date Resolved Date Adenopathy 12/25/2020 03/25/2021 Nausea with vomiting 08/17/2020 08/20/2020 Last Assessment & Plan: Assessment: 200cc bilious emesis 08/16 PLAN: -Protonix 40mg IV daily -Compazine 5mg IV q6hr PRN Primary hypertension 01/20/2017 08/05/2018 A-fib 03/06/2017 HTN (hypertension) 03/06/2017 documented as of this encounter (statuses as of 09/11/2022) [facility] History of Past illness Narrative* Problem Noted Date Resolved Date Adenopathy 12/25/2020 03/25/2021 Nausea with vomiting 08/17/2020 08/20/2020 Last Assessment & Plan: Assessment: 200cc bilious emesis 08/16 PLAN: -Protonix 40mg IV daily -Compazine 5mg IV q6hr PRN Primary hypertension 01/20/2017 08/05/2018 A-fib 03/06/2017 HTN (hypertension) 03/06/2017 documented as of this encounter (statuses as of 09/23/2022) [facility] History of Past illness Narrative* Problem Noted Date Resolved Date Adenopathy 12/25/2020 03/25/2021 Nausea with vomiting 08/17/2020 08/20/2020 Last Assessment & Plan: Assessment: 200cc bilious emesis 08/16 PLAN: -Protonix 40mg IV daily -Compazine 5mg IV q6hr PRN Primary hypertension 01/20/2017 08/05/2018 A-fib 03/06/2017 HTN (hypertension) 03/06/2017 documented as of this encounter (statuses as of 09/26/2022) [facility] History of Past illness Narrative* Problem Noted Date Resolved Date Adenopathy 12/25/2020 03/25/2021 Nausea with vomiting 08/17/2020 08/20/2020 Last Assessment & Plan: Assessment: 200cc bilious emesis 08/16 PLAN: -Protonix 40mg IV daily -Compazine 5mg IV q6hr PRN Primary hypertension 01/20/2017 08/05/2018 A-fib 03/06/2017 HTN (hypertension) 03/06/2017 documented as of this encounter (statuses as of 10/01/2022) [facility] History of Past illness Narrative* Problem Noted Date Resolved Date Adenopathy 12/25/2020 03/25/2021 Nausea with vomiting 08/17/2020 08/20/2020 Last Assessment & Plan: Assessment: 200cc bilious emesis 08/16 PLAN: -Protonix 40mg IV daily -Compazine 5mg IV q6hr PRN Primary hypertension 01/20/2017 08/05/2018 A-fib 03/06/2017 HTN (hypertension) 03/06/2017 documented as of this encounter (statuses as of 10/02/2022) [facility] History of Past illness Narrative* Problem Noted Date Resolved Date Adenopathy 12/25/2020 03/25/2021 Nausea with vomiting 08/17/2020 08/20/2020 Last Assessment & Plan: Assessment: 200cc bilious emesis 08/16 PLAN: -Protonix 40mg IV daily -Compazine 5mg IV q6hr PRN Primary hypertension 01/20/2017 08/05/2018 A-fib 03/06/2017 HTN (hypertension) 03/06/2017 documented as of this encounter (statuses as of 10/02/2022) [facility] History of Past illness Narrative* Problem Noted Date Resolved Date Adenopathy 12/25/2020 03/25/2021 Nausea with vomiting 08/17/2020 08/20/2020 Last Assessment & Plan: Assessment: 200cc bilious emesis 08/16 PLAN: -Protonix 40mg IV daily -Compazine 5mg IV q6hr PRN Primary hypertension 01/20/2017 08/05/2018 A-fib 03/06/2017 HTN (hypertension) 03/06/2017 documented as of this encounter (statuses as of 10/04/2022) [facility] History of Past illness Narrative* Problem Noted Date Resolved Date Adenopathy 12/25/2020 03/25/2021 Nausea with vomiting 08/17/2020 08/20/2020 Last Assessment & Plan: Assessment: 200cc bilious emesis 08/16 PLAN: -Protonix 40mg IV daily -Compazine 5mg IV q6hr PRN Primary hypertension 01/20/2017 08/05/2018 A-fib 03/06/2017 HTN (hypertension) 03/06/2017 documented as of this encounter (statuses as of 10/07/2022) [facility] History of Past illness Narrative* Problem Noted Date Resolved Date Adenopathy 12/25/2020 03/25/2021 Nausea with vomiting 08/17/2020 08/20/2020 Last Assessment & Plan: Assessment: 200cc bilious emesis 08/16 PLAN: -Protonix 40mg IV daily -Compazine 5mg IV q6hr PRN Primary hypertension 01/20/2017 08/05/2018 A-fib 03/06/2017 HTN (hypertension) 03/06/2017 documented as of this encounter (statuses as of 10/08/2022) [facility] History of Past illness Narrative* Problem Noted Date Resolved Date Adenopathy 12/25/2020 03/25/2021 Nausea with vomiting 08/17/2020 08/20/2020 Last Assessment & Plan: Assessment: 200cc bilious emesis 08/16 PLAN: -Protonix 40mg IV daily -Compazine 5mg IV q6hr PRN Primary hypertension 01/20/2017 08/05/2018 A-fib 03/06/2017 HTN (hypertension) 03/06/2017 documented as of this encounter (statuses as of 10/14/2022) [facility] History of Past illness Narrative* Problem Noted Date Resolved Date Adenopathy 12/25/2020 03/25/2021 Nausea with vomiting 08/17/2020 08/20/2020 Last Assessment & Plan: Assessment: 200cc bilious emesis 08/16 PLAN: -Protonix 40mg IV daily -Compazine 5mg IV q6hr PRN Primary hypertension 01/20/2017 08/05/2018 A-fib 03/06/2017 HTN (hypertension) 03/06/2017 documented as of this encounter (statuses as of 10/15/2022) [facility] History of Past illness Narrative* Problem Noted Date Resolved Date Adenopathy 12/25/2020 03/25/2021 Nausea with vomiting 08/17/2020 08/20/2020 Last Assessment & Plan: Assessment: 200cc bilious emesis 08/16 PLAN: -Protonix 40mg IV daily -Compazine 5mg IV q6hr PRN Primary hypertension 01/20/2017 08/05/2018 A-fib 03/06/2017 HTN (hypertension) 03/06/2017 documented as of this encounter (statuses as of 10/16/2022) [facility] History of Past illness Narrative* Problem Noted Date Resolved Date Adenopathy 12/25/2020 03/25/2021 Nausea with vomiting 08/17/2020 08/20/2020 Last Assessment & Plan: Assessment: 200cc bilious emesis 08/16 PLAN: -Protonix 40mg IV daily -Compazine 5mg IV q6hr PRN Primary hypertension 01/20/2017 08/05/2018 A-fib 03/06/2017 HTN (hypertension) 03/06/2017 documented as of this encounter (statuses as of 10/16/2022) [facility] History of Past illness Narrative* Problem Noted Date Resolved Date Adenopathy 12/25/2020 03/25/2021 Nausea with vomiting 08/17/2020 08/20/2020 Last Assessment & Plan: Assessment: 200cc bilious emesis 08/16 PLAN: -Protonix 40mg IV daily -Compazine 5mg IV q6hr PRN Primary hypertension 01/20/2017 08/05/2018 A-fib 03/06/2017 HTN (hypertension) 03/06/2017 documented as of this encounter (statuses as of 10/16/2022) [facility] History of Past illness Narrative* Problem Noted Date Resolved Date Adenopathy 12/25/2020 03/25/2021 Nausea with vomiting 08/17/2020 08/20/2020 Last Assessment & Plan: Assessment: 200cc bilious emesis 08/16 PLAN: -Protonix 40mg IV daily -Compazine 5mg IV q6hr PRN Primary hypertension 01/20/2017 08/05/2018 A-fib 03/06/2017 HTN (hypertension) 03/06/2017 documented as of this encounter (statuses as of 11/19/2022) [facility] History of Past illness Narrative* Problem Noted Date Resolved Date Adenopathy 12/25/2020 03/25/2021 Nausea with vomiting 08/17/2020 08/20/2020 Last Assessment & Plan: Assessment: 200cc bilious emesis 08/16 PLAN: -Protonix 40mg IV daily -Compazine 5mg IV q6hr PRN Primary hypertension 01/20/2017 08/05/2018 A-fib 03/06/2017 HTN (hypertension) 03/06/2017 documented as of this encounter (statuses as of 12/03/2022) [facility] History of Past illness Narrative* Problem Noted Date Resolved Date Adenopathy 12/25/2020 03/25/2021 Nausea with vomiting 08/17/2020 08/20/2020 Last Assessment & Plan: Assessment: 200cc bilious emesis 08/16 PLAN: -Protonix 40mg IV daily -Compazine 5mg IV q6hr PRN Primary hypertension 01/20/2017 08/05/2018 A-fib 03/06/2017 HTN (hypertension) 03/06/2017 documented as of this encounter (statuses as of 12/11/2022) [facility] History of Past illness Narrative* Problem Noted Date Resolved Date Adenopathy 12/25/2020 03/25/2021 Nausea with vomiting 08/17/2020 08/20/2020 Last Assessment & Plan: Assessment: 200cc bilious emesis 08/16 PLAN: -Protonix 40mg IV daily -Compazine 5mg IV q6hr PRN Primary hypertension 01/20/2017 08/05/2018 A-fib 03/06/2017 HTN (hypertension) 03/06/2017 documented as of this encounter (statuses as of 12/12/2022) [facility] History of Past illness Narrative* Problem Noted Date Diagnosed Date Resolved Date Adenopathy 12/25/2020 03/25/2021 Nausea with vomiting 08/17/2020 021 Last Assessment & Plan: Assessment: 200cc bilious emesis 08/16 PLAN: -Protonix 40mg IV daily -Compazine 5mg IV q6hr PRN Primary hypertension 01/20/2017 019 A-fib 03/06/2017 HTN (hypertension) 7 documented as of this encounter (statuses as of 01/08/2023) [facility] History of Past illness Narrative* Problem Noted Date Diagnosed Date Resolved Date Adenopathy 12/25/2020 03/25/2021 Nausea with vomiting 08/17/2020 021 Last Assessment & Plan: Assessment: 200cc bilious emesis 08/16 PLAN: -Protonix 40mg IV daily -Compazine 5mg IV q6hr PRN Primary hypertension 01/20/2017 019 A-fib 03/06/2017 HTN (hypertension) 7 documented as of this encounter (statuses as of 02/01/2023) [facility] History of Past illness Narrative* Problem Noted Date Diagnosed Date Resolved Date Adenopathy 12/25/2020 03/25/2021 Nausea with vomiting 08/17/2020 021 Last Assessment & Plan: Assessment: 200cc bilious emesis 08/16 PLAN: -Protonix 40mg IV daily -Compazine 5mg IV q6hr PRN Primary hypertension 01/20/2017 019 A-fib 03/06/2017 HTN (hypertension) 7 documented as of this encounter (statuses as of 02/03/2023) [facility] History of Past illness Narrative* Problem Noted Date Diagnosed Date Resolved Date Adenopathy 12/25/2020 03/25/2021 Nausea with vomiting 08/17/2020 021 Last Assessment & Plan: Assessment: 200cc bilious emesis 08/16 PLAN: -Protonix 40mg IV daily -Compazine 5mg IV q6hr PRN Primary hypertension 01/20/2017 019 A-fib 03/06/2017 HTN (hypertension) 7 documented as of this encounter (statuses as of 02/13/2023) [facility] History of Past illness Narrative* Problem Noted Date Diagnosed Date Resolved Date Adenopathy 12/25/2020 03/25/2021 Nausea with vomiting 08/17/2020 021 Last Assessment & Plan: Assessment: 200cc bilious emesis 08/16 PLAN: -Protonix 40mg IV daily -Compazine 5mg IV q6hr PRN Primary hypertension 01/20/2017 019 A-fib 03/06/2017 HTN (hypertension) 7 documented as of this encounter (statuses as of 02/16/2023) [facility] History of Past illness Narrative* Problem Noted Date Diagnosed Date Resolved Date Adenopathy 12/25/2020 03/25/2021 Nausea with vomiting 08/17/2020 021 Last Assessment & Plan: Assessment: 200cc bilious emesis 08/16 PLAN: -Protonix 40mg IV daily -Compazine 5mg IV q6hr PRN Primary hypertension 01/20/2017 019 A-fib 03/06/2017 HTN (hypertension) 7 documented as of this encounter (statuses as of 02/25/2023) [facility] History of Past illness Narrative* Problem Noted Date Diagnosed Date Resolved Date Adenopathy 12/25/2020 03/25/2021 Nausea with vomiting 08/17/2020 021 Last Assessment & Plan: Assessment: 200cc bilious emesis 08/16 PLAN: -Protonix 40mg IV daily -Compazine 5mg IV q6hr PRN Primary hypertension 01/20/2017 019 A-fib 03/06/2017 HTN (hypertension) 7 documented as of this encounter (statuses as of 02/27/2023) [facility] History of Past illness Narrative* Problem Noted Date Diagnosed Date Resolved Date Adenopathy 12/25/2020 03/25/2021 Nausea with vomiting 08/17/2020 021 Last Assessment & Plan: Assessment: 200cc bilious emesis 08/16 PLAN: -Protonix 40mg IV daily -Compazine 5mg IV q6hr PRN Primary hypertension 01/20/2017 019 A-fib 03/06/2017 HTN (hypertension) 7 documented as of this encounter (statuses as of 03/12/2023) [facility] History of Past illness Narrative* Problem Noted Date Diagnosed Date Resolved Date Adenopathy 12/25/2020 03/25/2021 Nausea with vomiting 08/17/2020 021 Last Assessment & Plan: Assessment: 200cc bilious emesis 08/16 PLAN: -Protonix 40mg IV daily -Compazine 5mg IV q6hr PRN Primary hypertension 01/20/2017 019 A-fib 03/06/2017 HTN (hypertension) 7 documented as of this encounter (statuses as of 03/16/2023) [facility] History of Past illness Narrative* Problem Noted Date Diagnosed Date Resolved Date Adenopathy 12/25/2020 03/25/2021 Nausea with vomiting 08/17/2020 021 Last Assessment & Plan: Assessment: 200cc bilious emesis 08/16 PLAN: -Protonix 40mg IV daily -Compazine 5mg IV q6hr PRN Primary hypertension 01/20/2017 019 A-fib 03/06/2017 HTN (hypertension) 7 documented as of this encounter (statuses as of 03/19/2023) [facility] History of Past illness Narrative* Problem Noted Date Diagnosed Date Resolved Date Adenopathy 12/25/2020 03/25/2021 Nausea with vomiting 08/17/2020 021 Last Assessment & Plan: Assessment: 200cc bilious emesis 08/16 PLAN: -Protonix 40mg IV daily -Compazine 5mg IV q6hr PRN Primary hypertension 01/20/2017 019 A-fib 03/06/2017 HTN (hypertension) 7 documented as of this encounter (statuses as of 03/31/2023) [facility] History of Past illness Narrative* Problem Noted Date Diagnosed Date Resolved Date Adenopathy 12/25/2020 03/25/2021 Nausea with vomiting 08/17/2020 021 Last Assessment & Plan: Assessment: 200cc bilious emesis 08/16 PLAN: -Protonix 40mg IV daily -Compazine 5mg IV q6hr PRN Primary hypertension 01/20/2017 019 A-fib 03/06/2017 HTN (hypertension) 7 documented as of this encounter (statuses as of 04/02/2023) [facility] History of Past illness Narrative* Problem Noted Date Diagnosed Date Resolved Date Adenopathy 12/25/2020 03/25/2021 Nausea with vomiting 08/17/2020 021 Last Assessment & Plan: Assessment: 200cc bilious emesis 08/16 PLAN: -Protonix 40mg IV daily -Compazine 5mg IV q6hr PRN Primary hypertension 01/20/2017 019 A-fib 03/06/2017 HTN (hypertension) 7 documented as of this encounter (statuses as of 04/07/2023) [facility] History of Past illness Narrative* Problem Noted Date Diagnosed Date Resolved Date Adenopathy 12/25/2020 03/25/2021 Nausea with vomiting 08/17/2020 021 Last Assessment & Plan: Assessment: 200cc bilious emesis 08/16 PLAN: -Protonix 40mg IV daily -Compazine 5mg IV q6hr PRN Primary hypertension 01/20/2017 019 A-fib 03/06/2017 HTN (hypertension) 7 documented as of this encounter (statuses as of 04/07/2023) [facility] History of Past illness Narrative* Problem Noted Date Diagnosed Date Resolved Date Adenopathy 12/25/2020 03/25/2021 Nausea with vomiting 08/17/2020 021 Last Assessment & Plan: Assessment: 200cc bilious emesis 08/16 PLAN: -Protonix 40mg IV daily -Compazine 5mg IV q6hr PRN Primary hypertension 01/20/2017 019 A-fib 03/06/2017 HTN (hypertension) 7 documented as of this encounter (statuses as of 04/07/2023) [facility] History of Past illness Narrative* Problem Noted Date Diagnosed Date Resolved Date Adenopathy 12/25/2020 03/25/2021 Nausea with vomiting 08/17/2020 021 Last Assessment & Plan: Assessment: 200cc bilious emesis 08/16 PLAN: -Protonix 40mg IV daily -Compazine 5mg IV q6hr PRN Primary hypertension 01/20/2017 019 A-fib 03/06/2017 HTN (hypertension) 7 documented as of this encounter (statuses as of 04/14/2023) [facility] History of Past illness Narrative* Problem Noted Date Diagnosed Date Resolved Date Adenopathy 12/25/2020 03/25/2021 Nausea with vomiting 08/17/2020 021 Last Assessment & Plan: Assessment: 200cc bilious emesis 08/16 PLAN: -Protonix 40mg IV daily -Compazine 5mg IV q6hr PRN Primary hypertension 01/20/2017 019 A-fib 03/06/2017 HTN (hypertension) 7 documented as of this encounter (statuses as of 04/14/2023) [facility] History of Past illness Narrative* Problem Noted Date Diagnosed Date Resolved Date Adenopathy 12/25/2020 03/25/2021 Nausea with vomiting 08/17/2020 021 Last Assessment & Plan: Assessment: 200cc bilious emesis 08/16 PLAN: -Protonix 40mg IV daily -Compazine 5mg IV q6hr PRN Primary hypertension 01/20/2017 019 A-fib 03/06/2017 HTN (hypertension) 7 documented as of this encounter (statuses as of 04/14/2023) [facility] History of Past illness Narrative* Problem Noted Date Diagnosed Date Resolved Date Adenopathy 12/25/2020 03/25/2021 Nausea with vomiting 08/17/2020 021 Last Assessment & Plan: Assessment: 200cc bilious emesis 08/16 PLAN: -Protonix 40mg IV daily -Compazine 5mg IV q6hr PRN Primary hypertension 01/20/2017 019 A-fib 03/06/2017 HTN (hypertension) 7 documented as of this encounter (statuses as of 04/15/2023) [facility] History of Past illness Narrative* Problem Noted Date Diagnosed Date Resolved Date Adenopathy 12/25/2020 03/25/2021 Nausea with vomiting 08/17/2020 021 Last Assessment & Plan: Assessment: 200cc bilious emesis 08/16 PLAN: -Protonix 40mg IV daily -Compazine 5mg IV q6hr PRN Primary hypertension 01/20/2017 019 A-fib 03/06/2017 HTN (hypertension) 7 documented as of this encounter (statuses as of 04/16/2023) [facility] History of Past illness Narrative* Problem Noted Date Diagnosed Date Resolved Date Adenopathy 12/25/2020 03/25/2021 Nausea with vomiting 08/17/2020 021 Last Assessment & Plan: Assessment: 200cc bilious emesis 08/16 PLAN: -Protonix 40mg IV daily -Compazine 5mg IV q6hr PRN Primary hypertension 01/20/2017 019 A-fib 03/06/2017 HTN (hypertension) 7 documented as of this encounter (statuses as of 04/17/2023) [facility] History of Past illness Narrative* Problem Noted Date Diagnosed Date Resolved Date Adenopathy 12/25/2020 03/25/2021 Nausea with vomiting 08/17/2020 021 Last Assessment & Plan: Assessment: 200cc bilious emesis 08/16 PLAN: -Protonix 40mg IV daily -Compazine 5mg IV q6hr PRN Primary hypertension 01/20/2017 019 A-fib 03/06/2017 HTN (hypertension) 7 documented as of this encounter (statuses as of 04/23/2023) [facility]21 History of Past illness Narrative* Problem Noted Date Diagnosed Date Resolved Date Adenopathy 12/25/2020 03/25/2021 Nausea with vomiting 08/17/2020 021 Last Assessment & Plan: Assessment: 200cc bilious emesis 08/16 PLAN: -Protonix 40mg IV daily -Compazine 5mg IV q6hr PRN Primary hypertension 01/20/2017 019 A-fib 03/06/2017 HTN (hypertension) 7 documented as of this encounter (statuses as of 04/23/2023) [facility]21 History of Past illness Narrative* Problem Noted Date Diagnosed Date Resolved Date Adenopathy 12/25/2020 03/25/2021 Nausea with vomiting 08/17/2020 021 Last Assessment & Plan: Assessment: 200cc bilious emesis 08/16 PLAN: -Protonix 40mg IV daily -Compazine 5mg IV q6hr PRN Primary hypertension 01/20/2017 019 A-fib 03/06/2017 HTN (hypertension) 7 documented as of this encounter (statuses as of 04/27/2023) [facility] History of Past illness Narrative* Problem Noted Date Diagnosed Date Resolved Date Adenopathy 12/25/2020 03/25/2021 Nausea with vomiting 08/17/2020 021 Last Assessment & Plan: Assessment: 200cc bilious emesis 08/16 PLAN: -Protonix 40mg IV daily -Compazine 5mg IV q6hr PRN Primary hypertension 01/20/2017 019 A-fib 03/06/2017 HTN (hypertension) 7 documented as of this encounter (statuses as of 04/27/2023) [facility] History of Past illness Narrative* Problem Noted Date Diagnosed Date Resolved Date Adenopathy 12/25/2020 03/25/2021 Nausea with vomiting 08/17/2020 021 Last Assessment & Plan: Assessment: 200cc bilious emesis 08/16 PLAN: -Protonix 40mg IV daily -Compazine 5mg IV q6hr PRN Primary hypertension 01/20/2017 019 A-fib 03/06/2017 HTN (hypertension) 7 documented as of this encounter (statuses as of 04/27/2023) [facility] History of Past illness Narrative* Problem Noted Date Diagnosed Date Resolved Date Adenopathy 12/25/2020 03/25/2021 Nausea with vomiting 08/17/2020 021 Last Assessment & Plan: Assessment: 200cc bilious emesis 08/16 PLAN: -Protonix 40mg IV daily -Compazine 5mg IV q6hr PRN Primary hypertension 01/20/2017 019 A-fib 03/06/2017 HTN (hypertension) 7 documented as of this encounter (statuses as of 04/27/2023) [facility] History of Past illness Narrative* Problem Noted Date Diagnosed Date Resolved Date Adenopathy 12/25/2020 03/25/2021 Nausea with vomiting 08/17/2020 021 Last Assessment & Plan: Assessment: 200cc bilious emesis 08/16 PLAN: -Protonix 40mg IV daily -Compazine 5mg IV q6hr PRN Primary hypertension 01/20/2017 019 A-fib 03/06/2017 HTN (hypertension) 7 documented as of this encounter (statuses as of 04/27/2023) [facility] History of Past illness Narrative* Problem Noted Date Diagnosed Date Resolved Date Adenopathy 12/25/2020 03/25/2021 Nausea with vomiting 08/17/2020 021 Last Assessment & Plan: Assessment: 200cc bilious emesis 08/16 PLAN: -Protonix 40mg IV daily -Compazine 5mg IV q6hr PRN Primary hypertension 01/20/2017 019 A-fib 03/06/2017 HTN (hypertension) 7 documented as of this encounter (statuses as of 04/27/2023) [facility] History of Past illness Narrative* Problem Noted Date Diagnosed Date Resolved Date Adenopathy 12/25/2020 03/25/2021 Nausea with vomiting 08/17/2020 021 Last Assessment & Plan: Assessment: 200cc bilious emesis 08/16 PLAN: -Protonix 40mg IV daily -Compazine 5mg IV q6hr PRN Primary hypertension 01/20/2017 019 A-fib 03/06/2017 HTN (hypertension) 7 documented as of this encounter (statuses as of 04/28/2023) [facility] History of Past illness Narrative* Problem Noted Date Diagnosed Date Resolved Date Adenopathy 12/25/2020 03/25/2021 Nausea with vomiting 08/17/2020 021 Last Assessment & Plan: Assessment: 200cc bilious emesis 08/16 PLAN: -Protonix 40mg IV daily -Compazine 5mg IV q6hr PRN Primary hypertension 01/20/2017 019 A-fib 03/06/2017 HTN (hypertension) 7 documented as of this encounter (statuses as of 04/30/2023) [facility] History of Past illness Narrative* Problem Noted Date Diagnosed Date Resolved Date Adenopathy 12/25/2020 03/25/2021 Nausea with vomiting 08/17/2020 021 Last Assessment & Plan: Assessment: 200cc bilious emesis 08/16 PLAN: -Protonix 40mg IV daily -Compazine 5mg IV q6hr PRN Primary hypertension 01/20/2017 019 A-fib 03/06/2017 HTN (hypertension) 7 documented as of this encounter (statuses as of 05/05/2023) [facility] History of Past illness Narrative* Problem Noted Date Diagnosed Date Resolved Date Adenopathy 12/25/2020 03/25/2021 Nausea with vomiting 08/17/2020 021 Last Assessment & Plan: Assessment: 200cc bilious emesis 08/16 PLAN: -Protonix 40mg IV daily -Compazine 5mg IV q6hr PRN Primary hypertension 01/20/2017 019 A-fib 03/06/2017 HTN (hypertension) 7 documented as of this encounter (statuses as of 05/05/2023) [facility] History of Past illness Narrative* Problem Noted Date Diagnosed Date Resolved Date Adenopathy 12/25/2020 03/25/2021 Nausea with vomiting 08/17/2020 021 Last Assessment & Plan: Assessment: 200cc bilious emesis 08/16 PLAN: -Protonix 40mg IV daily -Compazine 5mg IV q6hr PRN Primary hypertension 01/20/2017 019 A-fib 03/06/2017 HTN (hypertension) 7 documented as of this encounter (statuses as of 05/06/2023) [facility] History of Past illness Narrative* Problem Noted Date Diagnosed Date Resolved Date Adenopathy 12/25/2020 03/25/2021 Nausea with vomiting 08/17/2020 021 Last Assessment & Plan: Assessment: 200cc bilious emesis 08/16 PLAN: -Protonix 40mg IV daily -Compazine 5mg IV q6hr PRN Primary hypertension 01/20/2017 019 A-fib 03/06/2017 HTN (hypertension) 7 documented as of this encounter (statuses as of 05/11/2023) [facility] History of Past illness Narrative* Problem Noted Date Diagnosed Date Resolved Date Adenopathy 12/25/2020 03/25/2021 Nausea with vomiting 08/17/2020 021 Last Assessment & Plan: Assessment: 200cc bilious emesis 08/16 PLAN: -Protonix 40mg IV daily -Compazine 5mg IV q6hr PRN Primary hypertension 01/20/2017 019 A-fib 03/06/2017 HTN (hypertension) 7 documented as of this encounter (statuses as of 05/13/2023) [facility] History of Past illness Narrative* Problem Noted Date Diagnosed Date Resolved Date Adenopathy 12/25/2020 03/25/2021 Nausea with vomiting 08/17/2020 021 Last Assessment & Plan: Assessment: 200cc bilious emesis 08/16 PLAN: -Protonix 40mg IV daily -Compazine 5mg IV q6hr PRN Primary hypertension 01/20/2017 019 A-fib 03/06/2017 HTN (hypertension) 7 documented as of this encounter (statuses as of 05/26/2023) [facility] History of Past illness Narrative* Problem Noted Date Diagnosed Date Resolved Date Adenopathy 12/25/2020 03/25/2021 Nausea with vomiting 08/17/2020 021 Last Assessment & Plan: Assessment: 200cc bilious emesis 08/16 PLAN: -Protonix 40mg IV daily -Compazine 5mg IV q6hr PRN Primary hypertension 01/20/2017 019 A-fib 03/06/2017 HTN (hypertension) 7 documented as of this encounter (statuses as of 05/26/2023) [facility] History of Past illness Narrative* Problem Noted Date Diagnosed Date Resolved Date Adenopathy 12/25/2020 03/25/2021 Nausea with vomiting 08/17/2020 021 Last Assessment & Plan: Assessment: 200cc bilious emesis 08/16 PLAN: -Protonix 40mg IV daily -Compazine 5mg IV q6hr PRN Primary hypertension 01/20/2017 019 A-fib 03/06/2017 HTN (hypertension) 7 documented as of this encounter (statuses as of 05/27/2023) [facility] History of Past illness Narrative* Problem Noted Date Diagnosed Date Resolved Date Adenopathy 12/25/2020 03/25/2021 Nausea with vomiting 08/17/2020 Last Assessment & Plan: Assessment: 200cc bilious emesis 08/16 PLAN: -Protonix 40mg IV daily -Compazine 5mg IV q6hr PRN Primary hypertension 01/20/2017 019 A-fib 03/06/2017 HTN (hypertension) 7 documented as of this encounter (statuses as of 05/28/2023) [facility] History of Past illness Narrative* Problem Noted Date Diagnosed Date Resolved Date Adenopathy 12/25/2020 03/25/2021 Nausea with vomiting 08/17/2020 021 Last Assessment & Plan: Assessment: 200cc bilious emesis 08/16 PLAN: -Protonix 40mg IV daily -Compazine 5mg IV q6hr PRN Primary hypertension 01/20/2017 019 A-fib 03/06/2017 HTN (hypertension) 7 documented as of this encounter (statuses as of 06/03/2023) [facility] History of Past illness Narrative* Problem Noted Date Diagnosed Date Resolved Date Adenopathy 12/25/2020 03/25/2021 Nausea with vomiting 08/17/2020 021 Last Assessment & Plan: Assessment: 200cc bilious emesis 08/16 PLAN: -Protonix 40mg IV daily -Compazine 5mg IV q6hr PRN Primary hypertension 01/20/2017 019 A-fib 03/06/2017 HTN (hypertension) 7 documented as of this encounter (statuses as of 06/05/2023) [facility] History of Past illness Narrative* Problem Noted Date Diagnosed Date Resolved Date Adenopathy 12/25/2020 03/25/2021 Nausea with vomiting 08/17/2020 021 Last Assessment & Plan: Assessment: 200cc bilious emesis 08/16 PLAN: -Protonix 40mg IV daily -Compazine 5mg IV q6hr PRN Primary hypertension 01/20/2017 019 A-fib 03/06/2017 HTN (hypertension) 7 documented as of this encounter (statuses as of 06/07/2023) [facility] History of Past illness Narrative* Problem Noted Date Diagnosed Date Resolved Date Adenopathy 12/25/2020 03/25/2021 Nausea with vomiting 08/17/2020 021 Last Assessment & Plan: Assessment: 200cc bilious emesis 08/16 PLAN: -Protonix 40mg IV daily -Compazine 5mg IV q6hr PRN Primary hypertension 01/20/2017 019 A-fib 03/06/2017 HTN (hypertension) 7 documented as of this encounter (statuses as of 06/23/2023) [facility] History of Past illness Narrative* Problem Noted Date Diagnosed Date Resolved Date Adenopathy 12/25/2020 03/25/2021 Nausea with vomiting 08/17/2020 021 Last Assessment & Plan: Assessment: 200cc bilious emesis 08/16 PLAN: -Protonix 40mg IV daily -Compazine 5mg IV q6hr PRN Primary hypertension 01/20/2017 019 A-fib 03/06/2017 HTN (hypertension) 7 documented as of this encounter (statuses as of 07/12/2023) [facility] Diagnosis 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, estrogen receptor positive (HCC)- Primary [facility] Diagnosis WALKER (dyspnea on exertion)- Primary Other dyspnea and respiratory abnormality Bacterial pneumonia Bacterial pneumonia, unspecified [facility] WALKER (dyspnea on exertion)- Primary Other dyspnea and respiratory abnormality Hemoptysis Hemoptysis, unspecified [facility] Diagnosis WALKER (dyspnea on exertion) Other dyspnea and respiratory abnormality Bacterial pneumonia Bacterial pneumonia, unspecified [facility] Diagnosis Myalgias- Primary Bacterial pneumonia Bacterial pneumonia, unspecified WALKER (dyspnea on exertion) Other dyspnea and respiratory abnormality Coronary artery disease involving [place] coronary artery of [place] heart with angina pectoris (HCC) Atrial fibrillation, chronic (HCC) Atrial fibrillation Prediabetes Other abnormal glucose Hypertension, essential Unspecified essential hypertension CAMRYN (obstructive sleep apnea) Obstructive sleep apnea (adult) (pediatric) Hyperlipidemia, mixed Mixed hyperlipidemia Malignant neoplasm of overlapping sites of left breast in female, estrogen receptor positive (HCC) [facility] Diagnosis Age-related osteoporosis without current pathological fracture- Primary Senile osteoporosis [facility] Diagnosis Atrial fibrillation, persistent (HCC)- Primary Atrial fibrillation Chronic diastolic CHF (congestive heart failure) (HCC) Chronic diastolic heart failure [facility] Diagnosis 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, 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 [facility] Diagnosis Neuropathy- Primary Mononeuritis of unspecified site Chronic diastolic congestive heart failure (HCC) Chronic diastolic heart failure [facility] Diagnosis Age-related osteoporosis without current pathological fracture- Primary Senile osteoporosis [facility] Diagnosis IPMN (intraductal papillary mucinous neoplasm)- Primary Neoplasm of unspecified nature of digestive system Abdominal pain, unspecified abdominal location [facility] Diagnosis 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, estrogen receptor positive (HCC) Lung nodules Other nonspecific abnormal finding of lung field Cough IPMN (intraductal papillary mucinous neoplasm) Neoplasm of unspecified nature of digestive system Abdominal pain, unspecified abdominal location [facility] Diagnosis Essential hypertension Unspecified essential hypertension [facility] Diagnosis IPMN (intraductal papillary mucinous neoplasm)- Primary Neoplasm of unspecified nature of digestive system [facility] Diagnosis Prediabetes- Primary Other abnormal glucose Essential hypertension Unspecified essential hypertension CAMRYN (obstructive sleep apnea) Obstructive sleep apnea (adult) (pediatric) Hyperlipidemia, mixed Mixed hyperlipidemia Atrial fibrillation, chronic (HCC) Atrial fibrillation 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) Neoplasm of unspecified nature of digestive system Stage 1 breast cancer, ER+, left (HCC) Screening mammogram, encounter for [facility] Diagnosis CAMRYN (obstructive sleep apnea)- Primary Obstructive sleep apnea (adult) (pediatric) Atrial fibrillation, chronic (HCC) Atrial fibrillation [facility] Diagnosis 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, estrogen receptor positive (HCC)- Primary 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 Lung nodules Other nonspecific abnormal finding of lung field Malignant neoplasm of breast in female, estrogen receptor positive, unspecified laterality, unspecified site of breast (HCC) [facility] Diagnosis Lung nodule- Primary Solitary pulmonary nodule [facility] Diagnosis Lung nodule seen on imaging study- Primary Solitary pulmonary nodule Stage 1 breast cancer, ER+, left (HCC) Essential hypertension Unspecified essential hypertension Gastroesophageal reflux disease without esophagitis Esophageal reflux Prediabetes Other abnormal glucose Atrial fibrillation, chronic (HCC) Atrial fibrillation Coronary artery disease involving [place] coronary artery of [place] heart with angina pectoris (HCC) CAMRYN (obstructive sleep apnea) Obstructive sleep apnea (adult) (pediatric) Hyperlipidemia, mixed Mixed hyperlipidemia Chronic diastolic CHF (congestive heart failure) (HCC) Chronic diastolic heart failure [place] foot [facility] Diagnosis Bilateral foot pain- Primary Pain in limb [facility] Diagnosis 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, estrogen receptor positive (HCC)- Primary Lung nodules Other nonspecific abnormal finding of lung field [facility] Diagnosis Lung nodule- Primary Solitary pulmonary nodule [facility] Diagnosis Chronic diastolic CHF (congestive heart failure) (HCC)- Primary Chronic diastolic heart failure [facility] Diagnosis 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, estrogen receptor positive (HCC)- Primary [facility] Diagnosis Flat feet Flat foot Insufficiency of posterior tibialis tendon Other disorders of synovium, tendon, and bursa [facility]* Diagnosis CAMRYN (obstructive sleep apnea)- Primary Obstructive sleep apnea (adult) (pediatric) Atrial fibrillation, chronic (HCC) Atrial fibrillation Chronic diastolic CHF (congestive heart failure) (HCC) Chronic diastolic heart failure Coronary artery disease involving [place] coronary artery of [place] heart with angina pectoris (HCC) Pulmonary hypertension (HCC) Other chronic pulmonary heart diseases [facility] Diagnosis Lung nodule- Primary Solitary pulmonary nodule History of breast cancer Personal history of malignant neoplasm of breast [facility] Diagnosis 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 [facility] Diagnosis 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, estrogen receptor positive (HCC)- Primary 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 Lung nodules Other nonspecific abnormal finding of lung field [facility] Diagnosis Fall in home, initial encounter- Primary Left upper arm pain Pain in limb Unsteady gait when walking Lung nodule seen on imaging study Solitary pulmonary nodule Stage 1 breast cancer, ER+, left (HCC) Essential hypertension Unspecified essential hypertension CAMRYN (obstructive sleep apnea) Obstructive sleep apnea (adult) (pediatric) Coronary artery disease involving [place] coronary artery of [place] heart with angina pectoris (HCC) Atrial fibrillation, chronic (HCC) Atrial fibrillation [facility] Diagnosis Flat feet- Primary Flat foot Fall in home, initial encounter Left upper arm pain Pain in limb Unsteady gait when walking Insufficiency of posterior tibialis tendon Other disorders of synovium, tendon, and bursa [facility] Diagnosis Essential hypertension Unspecified essential hypertension [facility] Diagnosis Fall in home, subsequent encounter- Primary Unsteady gait Abnormality of gait [facility] Diagnosis Fall in home, subsequent encounter- Primary Unsteady gait Abnormality of gait [facility] Diagnosis Fall in home, subsequent encounter- Primary Unsteady gait Abnormality of gait [facility] Diagnosis Fall in home, subsequent encounter- Primary Unsteady gait Abnormality of gait [facility] Diagnosis Fall in home, subsequent encounter- Primary Unsteady gait Abnormality of gait [facility] Diagnosis Fall in home, subsequent encounter- Primary Unsteady gait Abnormality of gait [facility]* Diagnosis Age-related osteoporosis without current pathological fracture- Primary Senile osteoporosis Primary hyperparathyroidism (HCC) Primary hyperparathyroidism CAMRYN (obstructive sleep apnea)- Primary Obstructive sleep apnea (adult) (pediatric) Atrial fibrillation, chronic (HCC) Atrial fibrillation [facility] Diagnosis Fall in home, subsequent encounter- Primary Unsteady gait Abnormality of gait [facility]* Diagnosis CAMRYN (obstructive sleep apnea)- Primary Obstructive sleep apnea (adult) (pediatric) Atrial fibrillation, chronic (HCC) Atrial fibrillation [facility] Diagnosis Age-related osteoporosis without current pathological fracture- Primary Senile osteoporosis [facility] Diagnosis Atrial fibrillation, chronic (HCC) Atrial fibrillation [facility] Diagnosis Age-related physical debility- Primary Senility without mention of psychosis [facility] Diagnosis 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, estrogen receptor positive (HCC)- Primary 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 [facility] Diagnosis Essential hypertension- Primary Unspecified essential hypertension Blood creatinine increased compared with prior measurement Stage 3b chronic kidney disease (HCC) IPMN (intraductal papillary mucinous neoplasm) Neoplasm of unspecified nature of digestive system Prediabetes Other abnormal glucose Chronic diastolic CHF (congestive heart failure) (HCC) Chronic diastolic heart failure Coronary artery disease involving [place] coronary artery of [place] heart with angina pectoris (HCC) Hyperparathyroidism (HCC) Hyperparathyroidism, unspecified Malignant neoplasm of overlapping sites of left breast in female, estrogen receptor positive (HCC) CAMRYN (obstructive sleep apnea) Obstructive sleep apnea (adult) (pediatric) [facility] Diagnosis Stage 3b chronic kidney disease (HCC)- Primary [facility] Diagnosis Stage 3b chronic kidney disease (HCC)- Primary Essential hypertension Unspecified essential hypertension Chronic diastolic CHF (congestive heart failure) (HCC) Chronic diastolic heart failure [facility] Diagnosis ARTHUR (acute kidney injury) (HCC)- Primary Acute kidney failure, unspecified [facility] Diagnosis Chronic combined systolic (congestive) and diastolic (congestive) heart failure (HCC)- Primary [facility] Diagnosis Encounter for screening mammogram for malignant neoplasm of breast- Primary Other screening mammogram [facility] Diagnosis Malignant neoplasm of breast in female, estrogen receptor positive, unspecified laterality, unspecified site of breast (HCC)- Primary 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, estrogen receptor positive (HCC) Chest wall recurrence of breast cancer, 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 [facility] Diagnosis Chronic diastolic congestive heart failure (HCC)- Primary Chronic diastolic heart failure [facility] Diagnosis Nonrheumatic tricuspid valve regurgitation- Primary Tricuspid valve disorders, specified as nonrheumatic Encounter for preprocedural cardiovascular examination Pre-operative cardiovascular examination Hypertensive heart disease with heart failure (HCC) Unspecified hypertensive heart disease with heart failure Acute diastolic (congestive) heart failure (HCC) Chronic atrial fibrillation, unspecified (HCC) [facility] Diagnosis 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 Chronic combined systolic and diastolic heart failure Nonrheumatic tricuspid valve regurgitation Tricuspid valve disorders, specified as nonrheumatic documented [facility] this [facility]* Diagnosis Encounter for screening breast examination 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, 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 Lung nodules Other nonspecific abnormal finding of lung field Encounter for screening mammogram for malignant neoplasm of breast Other screening mammogram Nonrheumatic tricuspid valve regurgitation Tricuspid valve disorders, specified as nonrheumatic documented [facility]* Diagnosis 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, 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 Abnormal radionuclide bone scan Nonspecific abnormal results of other specified function study Nonrheumatic tricuspid valve regurgitation Tricuspid valve disorders, specified as nonrheumatic [facility] Diagnosis Stage 3b chronic kidney disease (HCC) Essential hypertension Unspecified essential hypertension Chronic diastolic CHF (congestive heart failure) (HCC) Chronic diastolic heart failure Nonrheumatic tricuspid valve regurgitation Tricuspid valve disorders, specified as nonrheumatic [facility] Diagnosis 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, 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 Lung nodules Other nonspecific abnormal finding of lung field Nonrheumatic tricuspid valve regurgitation Tricuspid valve disorders, specified as nonrheumatic [facility] Diagnosis Lung nodules Other nonspecific abnormal finding of lung field Malignant neoplasm of breast in female, estrogen receptor positive, unspecified laterality, unspecified site of breast (HCC) Nonrheumatic tricuspid valve regurgitation Tricuspid valve disorders, specified as nonrheumatic [facility] Diagnosis 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, estrogen receptor positive (HCC)- Primary 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 Nonrheumatic tricuspid valve regurgitation Tricuspid valve disorders, specified as nonrheumatic [facility] Diagnosis Malignant neoplasm of breast in female, estrogen receptor positive, unspecified laterality, unspecified site of breast (HCC) 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, estrogen receptor positive (HCC) Chest wall recurrence of breast cancer, 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 Nonrheumatic tricuspid valve regurgitation Tricuspid valve disorders, specified as nonrheumatic [facility]* Diagnosis Multiple benign nevi- Primary Benign neoplasm of skin, site unspecified Seborrheic keratosis Other seborrheic keratosis Lentigines Other dyschromia Vega angioma Nevus, non-neoplastic Actinic keratosis Hx of nonmelanoma skin cancer Personal history of other malignant neoplasm of skin Rash and nonspecific skin eruption Rash and other nonspecific skin eruption Intradermal nevus Benign neoplasm of skin, site unspecified Nonrheumatic tricuspid valve regurgitation Tricuspid valve disorders, specified as nonrheumatic [facility] Diagnosis Malignant neoplasm of overlapping sites of left breast in female, estrogen receptor positive (HCC)- Primary Mediastinal adenopathy Enlargement of lymph nodes 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 Nonrheumatic tricuspid valve regurgitation Tricuspid valve disorders, specified as nonrheumatic [facility] Diagnosis Stage 3b chronic kidney disease (HCC)- Primary Nonrheumatic tricuspid valve regurgitation Tricuspid valve disorders, specified as nonrheumatic documented [facility]* Diagnosis Essential hypertension Unspecified essential hypertension Nonrheumatic tricuspid valve regurgitation Tricuspid valve disorders, specified as nonrheumatic documented [facility]* Diagnosis Malignant neoplasm of overlapping sites of left breast in female, estrogen receptor positive (HCC)- Primary Mediastinal adenopathy Enlargement of lymph nodes 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 Nonrheumatic tricuspid valve regurgitation Tricuspid valve disorders, specified as nonrheumatic documented [facility]* Diagnosis 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, 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 Lung nodules Other nonspecific abnormal finding of lung field Nonrheumatic tricuspid valve regurgitation Tricuspid valve disorders, specified as nonrheumatic documented [facility]* Diagnosis Tricuspid valve insufficiency, unspecified etiology- Primary Nonrheumatic tricuspid valve regurgitation Tricuspid valve disorders, specified as nonrheumatic documented [facility]* Diagnosis Severe tricuspid regurgitation- Primary Diseases of tricuspid valve Acute on chronic combined systolic and diastolic congestive heart failure (HCC) Acute on chronic combined systolic and diastolic heart failure Goals of care, counseling/discussion Other specified counseling Essential hypertension Unspecified essential hypertension Mixed hyperlipidemia documented [facility] this [facility]* Diagnosis Examination of participant in clinical trial- Primary documented in this encounter [facility] for referral (narrative)* Outpatient Procedure (Routine) - Pending Review Specialty Diagnoses / Procedures Referred By Eduardo westbrook Referred To [facility] Diagnoses WALKER (dyspnea on exertion) Procedures ECG COMPLETE ECG ROUTINE ECG W/LEAST 12 LDS W/I&R Tala Negron MD [address] [place] [address] [facility] [place] [address] [place] [address] Referral ID Status Reason Start Date Expiration Date Visits Requested Visits Authorized [id number] Pending Review Auto-Generat ed Referral 10/14/2021 10/14/2022 1 1 [facility] for referral (narrative)* Diagnostic Procedure Only (Routine) - Pending Review Specialty Diagnoses / Procedures Referred By Contac t Referred To Contact BR IMAGING Diagnoses Screening mammogram, encounter for Procedures ZINA SCREENING SCREENING MAMMOGRAPHY BI 2-VIEW BREAST INC CAD Tala Negron MD [address] [place] [address] [facility] [address] [place] [phone] Referral ID Status Reason Start Date Expiration Date Visits Requested Visits Authorized [id number] Pending Review Auto-Generat ed Referral 02/14/2022 03/16/2023 1 1 [facility] for referral (narrative)* Diagnostic Procedure Only (Routine) - Pending Review Specialty Diagnoses / Procedures Referred By Contac t Referred To Contact [facility] Diagnoses CAMRYN (obstructive sleep apnea) Atrial fibrillation, chronic (HCC) Procedures HOME SLEEP APNEA TEST (HSAT) SLEEP STD AIRFLOW HRT RATE&O2 SAT EFFORT Kizzy Barros APRN.CNP [address] [place] [address] [facility] [place] [address] [place] [address] Referral ID Status Reason Start Date Expiration Date Visits Requested Visits Authorized [id number] Pending Review Auto-Generat ed Referral 02/17/2022 02/17/2023 1 1 [facility] for referral (narrative)* Diagnostic Procedure Only (Routine) - Authorized Specialty Diagnoses / Procedures Referred By Contac t Referred To Contact [facility] Diagnoses Lung nodules Malignant neoplasm of breast in female, estrogen receptor positive, unspecified laterality, unspecified site of breast (HCC) Procedures NM BONE WHOLE BODY BONE &/JOINT IMAGING WHOLE BODY Nimisha Aleman APRN.SAWMILL 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 [address] [place] [address] [facility] [address] [place] [address] Referral ID Status Reason Start Date Expiration Date Visits Requested Visits Authorized [id number] Authorized Auto-Generat ed Referral 02/28/2022 03/30/2023 1 1 * MRI/CT (Routine) - Authorized Specialty Diagnoses / Procedures Referred By Contac t Referred To Contact CT IMAGING Diagnoses Lung nodules Malignant neoplasm of breast in female, estrogen receptor positive, unspecified laterality, unspecified site of breast (HCC) Procedures CT CHEST W IVCON DIAGNOSTIC COMPUTED TOMOGRAPHY THORAX W/CONTRAST Nimisha Aleman APRN.SAWMILL 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 [address] [place] [address] Ct Imaging Referral ID Status Reason Start Date Expiration Date Visits Requested Visits Authorized [id number] Authorized Auto-Generat ed Referral 02/28/2022 03/30/2023 1 1 * MRI/CT (Routine) - Authorized Specialty Diagnoses / Procedures Referred By Eduardo t Referred To Contact CT IMAGING Diagnoses Lung nodules Malignant neoplasm of breast in female, estrogen receptor positive, unspecified laterality, unspecified site of breast (HCC) Procedures CT ABD/PEL W IVCON CT ABD & PELVIS W/CONTRAST Nimisha Aleman APRN.SAWMILL 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 [address] [place] [address] Ct Imaging Referral ID Status Reason Start Date Expiration Date Visits Requested Visits Authorized [id number] Authorized Auto-Generat ed Referral 02/28/2022 03/30/2023 1 1 [facility] for referral (narrative)* Diagnostic Procedure Only (Routine) - Pending Review Specialty Diagnoses / Procedures Referred By Contac t Referred To Contact XR IMAGING Diagnoses Bilateral foot pain Procedures XR FOOT GENERAL 3V AP/LAT/OBL BILATERAL RADEX FOOT COMPLETE MINIMUM 3 VIEWS Tracy Mckeon [address] [place] [address] Xr Imaging Referral ID Status Reason Start Date Expiration Date Visits Requested Visits Authorized [id number] Pending Review Auto-Generat ed Referral 05/23/2022 06/22/2023 1 1 [facility] for referral (narrative)* Diagnostic Procedure Only (Routine) - Authorized Specialty Diagnoses / Procedures Referred By Eduardo t Referred To Contact [facility] Diagnoses 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, estrogen receptor positive (HCC) 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) Lung nodules Procedures NM BONE WHOLE BODY BONE &/JOINT IMAGING WHOLE BODY Nimisha Aleman APRN.CNP [address] [place] [address] [facility] [address] [place] [address] Referral ID Status Reason Start Date Expiration Date Visits Requested Visits Authorized [id number] Authorized Auto-Generat ed Referral 08/15/2022 09/14/2023 1 1 * MRI/CT (Routine) - Authorized Specialty Diagnoses / Procedures Referred By Eduardo t Referred To Contact CT IMAGING Diagnoses 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, estrogen receptor positive (HCC) 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) Lung nodules Procedures CT CHEST W IVCON DIAGNOSTIC COMPUTED TOMOGRAPHY THORAX W/CONTRAST Nimisha Aleman APRN.CNP [address] [place] [address] Ct Imaging Referral ID Status Reason Start Date Expiration Date Visits Requested Visits Authorized [id number] Authorized Auto-Generat ed Referral 08/15/2022 09/14/2023 1 1 * MRI/CT (Routine) - Authorized Specialty Diagnoses / Procedures Referred By Contac t Referred To Contact CT IMAGING Diagnoses 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, estrogen receptor positive (HCC) 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) Lung nodules Procedures CT ABD/PEL W IVCON CT ABD & PELVIS W/CONTRAST Nimisha Aleman APRN.SAWMILL 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 [address] [place] [address] Ct Imaging Referral ID Status Reason Start Date Expiration Date Visits Requested Visits Authorized [id number] Authorized Auto-Generat ed Referral 08/15/2022 09/14/2023 1 1 [facility] for referral (narrative)* Diagnostic Procedure Only (Routine) - Authorized Specialty Diagnoses / Procedures Referred By Contac t Referred To Contact US IMAGING Diagnoses Stage 3b chronic kidney disease (HCC) Essential hypertension Chronic diastolic CHF (congestive heart failure) (HCC) Procedures US KIDNEY/BLADDER US RETROPERITONEAL REAL TIME W/[place] [address] [place] [address] [place] [address] Referral ID Status Reason Start Date Expiration Date Visits Requested Visits Authorized [id number] Authorized Auto-Generat ed Referral 02/25/2023 03/26/2024 1 1 [facility] for referral (narrative)* Diagnostic Procedure Only (Routine) - Pending Review Specialty Diagnoses / Procedures Referred By Contac t Referred To Contact BR IMAGING Diagnoses Encounter for screening mammogram for malignant neoplasm of breast Procedures ZINA SCREENING W VIRGIL SCREENING DIGITAL BREAST TOMOSYNTHESIS BI SCREENING MAMMOGRAPHY BI 2-VIEW BREAST INC Vladimir Peng DO [address] [place] [address] Br Imaging [address] [place] [address] Referral ID Status Reason Start Date Expiration Date Visits Requested Visits Authorized [id number] Pending Review Auto-Generat ed Referral 03/14/2023 04/12/2024 1 1 [facility] for referral (narrative)* Diagnostic Procedure Only (Routine) - Authorized Specialty Diagnoses / Procedures Referred By Contac t Referred To Contact [facility] Diagnoses Malignant neoplasm of breast in female, estrogen receptor positive, unspecified laterality, unspecified site of breast (HCC) 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, estrogen receptor positive (HCC) Chest wall recurrence of breast cancer, 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) Procedures NM PET/CT SKULL-THIGH SUBSEQUENT PET IMAGING CT ATTENUATION SKULL BASE MID-THIGH Nimisha Aleman APRN.SAWMILL 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 [address] [place] [address] [facility] [address] [place] [address] Referral ID Status Reason Start Date Expiration Date Visits Requested Visits Authorized [id number] Authorized Auto-Generat ed Referral 3 05/05/2024 1 1 [facility] for referral (narrative)* Outpatient Procedure (Routine) - Pending Review Specialty Diagnoses / Procedures Referred By Contac t Referred To Contact [facility] Diagnoses Nonrheumatic tricuspid valve regurgitation Procedures ECG COMPLETE ECG ROUTINE ECG W/LEAST 12 LDS W/I&R Randee Rodriguez APRN.CNP [address] [place] [address] [facility] [place] [address] [place] [address] Referral ID Status Reason Start Date Expiration Date Visits Requested Visits Authorized [id number] Pending Review Auto-Generat ed Referral 3 04/12/2024 1 1 * MRI/CT (Routine) - Pending Review Specialty Diagnoses / Procedures Referred By Contac t Referred To Contact CT IMAGING Diagnoses Encounter for preprocedural cardiovascular examination Chronic atrial fibrillation, unspecified (HCC) Procedures CT CARDIAC W IVCON CT HEART CONTRAST EVAL CARDIAC STRUCTURE&MORPH Randee Rodriguez APRN.SAWMILL 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 [address] [place] [address] [place] [address] Referral ID Status Reason Start Date Expiration Date Visits Requested Visits Authorized [id number] Pending Review Auto-Generat ed Referral 3 05/12/2024 1 1 * Outpatient Procedure (Routine) - Pending Review Specialty Diagnoses / Procedures Referred By Contac dariana Referred To Contact [facility] [place] Diagnoses Nonrheumatic tricuspid valve regurgitation Procedures ECHO TRANSESOPHAGEAL ECHO TRANSESOPHAG R-T 2D W/PRB IMG ACQUISJ I&R Randee Rodriguez APRN.SAWMILL 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 [address] [place] [address] [place] [id number] Referral ID Status Reason Start Date Expiration Date Visits Requested Visits Authorized [id number] Pending Review Auto-Generat ed Referral 3 04/12/2024 1 1 * Outpatient Procedure (Routine) - Pending Review Specialty Diagnoses / Procedures Referred By [place]ac dariana Referred To Contact [facility] Diagnoses Nonrheumatic tricuspid valve regurgitation Procedures ECHO ECHO TTHRC R-T 2D W/WOM-MODE COMPL SPEC&COLR D Randee Rodriguez APRN.SAWMILL 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 [address] [place] [address] [address] Referral ID Status Reason Start Date Expiration Date Visits Requested Visits Authorized [id number] Pending Review Auto-Generat ed Referral 3 04/12/2024 1 1 [facility] for referral (narrative)* Diagnostic Procedure Only (Routine) - Closed Specialty Diagnoses / Procedures Referred By Contac t Referred To Contact BR IMAGING Diagnoses Encounter for screening breast examination 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, estrogen receptor positive (HCC) 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) Lung nodules Encounter for screening mammogram for malignant neoplasm of breast Procedures ZINA SCREENING W VIRGIL SCREENING DIGITAL BREAST TOMOSYNTHESIS BI SCREENING MAMMOGRAPHY BI 2-VIEW BREAST INC CAD Vladimir Thao DO [address] [place] [address] Br Imaging [address] [place] [address] Referral ID Status Reason Start Date Expiration Date V isits Requested Visits Authorized [id number] Closed Auto-Generate d Referral 02/02/2023 03/03/2024 1 1 [facility] for referral (narrative)* Diagnostic Procedure Only (Routine) - Closed Specialty Diagnoses / Procedures Referred By Contac t Referred To Contact US IMAGING Diagnoses Stage 3b chronic kidney disease (HCC) Essential hypertension Chronic diastolic CHF (congestive heart failure) (HCC) Procedures US KIDNEY/BLADDER US RETROPERITONEAL REAL TIME W/[place] [address] [place] [address] [place] [address] Referral ID Status Reason Start Date Expiration Date V isits Requested Visits Authorized [id number] Closed Auto-Generate d Referral 02/25/2023 03/26/2024 1 1 [facility] for referral (narrative)* Diagnostic Procedure Only (Routine) - Closed Specialty Diagnoses / Procedures [facility] Diagnoses 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, estrogen receptor positive (HCC) 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) Lung nodules Procedures NM BONE WHOLE BODY BONE &/JOINT IMAGING WHOLE BODY Nimisha Aleman APRN.SAWMILL 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 [address] [place] [address] [facility] [address] [place] [address] Referral ID Status Reason Start Date Expiration Date V isits Requested Visits Authorized [id number] Closed Auto-Generate d Referral 08/15/2022 09/14/2023 1 1 [facility] for referral (narrative)* Diagnostic Procedure Only (Routine) - Closed Specialty Diagnoses / Procedures Referred By Contac t Referred To Contact [facility] Diagnoses Lung nodules Malignant neoplasm of breast in female, estrogen receptor positive, unspecified laterality, unspecified site of breast (HCC) Procedures NM BONE WHOLE BODY BONE &/JOINT IMAGING WHOLE BODY Nimisha Aleman APRN.SAWMILL 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 [address] [place] [address] [facility] [address] [place] [address] Referral ID Status Reason Start Date Expiration Date V isits Requested Visits Authorized [id number] Closed Auto-Generate d Referral 02/28/2022 03/30/[address] 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 for referral (narrative)* Diagnostic Procedure Only (Routine) - Authorized Specialty Diagnoses / Procedures Referred By Contac t Referred To Contact [facility] Diagnoses Malignant neoplasm of overlapping sites of left breast in female, estrogen receptor positive (HCC) Mediastinal adenopathy Procedures NM PET/CT BREAST PET IMAGING CT ATTENUATION SKULL BASE MID-THIGH Vladimir Thao DO [address] [place] [address] [facility] [address] [place] [address] Referral ID Status Reason Start Date Expiration Date Visits Requested Visits Authorized [id number] Authorized Auto-Generat ed Referral 06/09/[address] 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) Lung nodules Encounter for screening mammogram for malignant neoplasm of breast Procedures ZINA SCREENING W VIRGIL SCREENING DIGITAL BREAST TOMOSYNTHESIS BI SCREENING MAMMOGRAPHY BI 2-VIEW BREAST INC CAD Vladimir Thao DO [address] [place] [place] [address] Br Imaging [address] [place] [address] Referral ID Status Reason Start Date Expiration Date V isits Requested Visits Authorized [id number] Closed Auto-Generate d Referral 02/02/2023 03/03/2024 1 1 [facility] for visit Narrative* Diagnostic Procedure Only (Routine) - Closed Specialty Diagnoses / Procedures Referred By Contac t Referred To Contact [facility] Diagnoses 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, estrogen receptor positive (HCC) 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) Lung nodules Procedures NM BONE WHOLE BODY BONE &/JOINT IMAGING WHOLE BODY Nimisha Aleman APRN.SAWMILL 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 [address] [place] [address] Molecular [facility] Imaging [address] [place] [address] Referral ID Status Reason Start Date Expiration Date V isits Requested Visits Authorized [id number] Closed Auto-Generate d Referral 08/15/2022 09/14/2023 1 1 [facility] for visit Narrative* Diagnostic Procedure Only (Routine) - Closed Specialty Diagnoses / Procedures Referred By Contac t Referred To Contact [facility] FUN[facility] Diagnoses Lung nodules Malignant neoplasm of breast in female, estrogen receptor positive, unspecified laterality, unspecified site of breast (HCC) Procedures NM BONE WHOLE BODY BONE &/JOINT IMAGING WHOLE BODY Nimisha Aleman APRN.SAWMILL 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 [address] [place] [address] Molecular [facility] [address] [place] [address] Referral ID Status Reason Start Date Expiration Date V isits Requested Visits Authorized [id number] Closed Auto-Generate d Referral 02/28/2022 03/30/2023 1 1 [facility] for visit Narrative* Diagnostic Procedure Only (Routine) - Closed Specialty Diagnoses / Procedures Referred By Eduardo t Referred To Contact MOLECULAR [facility] FUNCTIONAL IMAGING Diagnoses Malignant neoplasm of breast in female, estrogen receptor positive, unspecified laterality, unspecified site of breast (HCC) 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, estrogen receptor positive (HCC) Chest wall recurrence of breast cancer, 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) Procedures NM PET/CT SKULL-THIGH SUBSEQUENT PET IMAGING CT ATTENUATION SKULL BASE MID-THIGH Nimisha Aleman APRN.SAWMILL 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 [address] [place] [address] Molecular & Functional Imaging [address] [place] [address] Referral ID Status Reason Start Date Expiration Date V isits Requested Visits Authorized [id number] Closed Auto-Generate d Referral 04/06/2023 05/05/2024 1 1 [facility] Summary Purpose Family History No Family History Records FoundNo Family History Records FoundNo Family History Records Found Advance Directives No Advanced Directives Records FoundDocuments on File Type Date Recorded Patient Log Haul Chain Feeder Expl anation Advance Directive(s) 02/17/2022 11:05 AM Latest Code Status on File Code Status Date Activated Date Inactivated Comments Full Code 08/15/2020 1:47 PM 08/21/2020 6:53 PM Full Code Order Discussed With: Patient Documents on File Type Date Recorded Patient Log Haul Chain Feeder Expl anation Advance Directive(s) 02/09/2017 2:07 PM Documents on File Type Date Recorded Patient Log Haul Chain Feeder Expl anation Advance Directive(s) 12/25/2020 9:16 AM Advance Directive(s) 08/16/2020 2:43 PM Advance Directive(s) 08/16/2020 2:45 PM Advance Directive(s) 07/19/2020 2:56 PM Advance Directive(s) 03/21/2020 7:14 AM Advance Directive(s) 03/09/2020 2:21 PM Advance Directive(s) 01/31/2020 3:12 PM Advance Directive(s) 12/03/2019 5:27 PM Advance Directive(s) 11/29/2019 4:47 PM Advance Directive(s) 10/12/2018 9:37 AM Advance Directive(s) 03/11/2017 8:24 AM Advance Directive(s) 02/09/2017 2:06 PM Advance Directive(s) 02/09/2017 2:07 PM Latest Code Status on File Code Status Date Activated Date Inactivated Comments Full Code 08/15/2020 1:47 PM 08/21/2020 6:53 PM Documents on File Type Date Recorded Patient Log Haul Chain Feeder Expl anation Advance Directive(s) 12/25/2020 9:16 AM Advance Directive(s) 08/16/2020 2:43 PM Advance Directive(s) 08/16/2020 2:45 PM Advance Directive(s) 07/19/2020 2:56 PM Advance Directive(s) 03/21/2020 7:14 AM Advance Directive(s) 03/09/2020 2:21 PM Advance Directive(s) 01/31/2020 3:12 PM Advance Directive(s) 12/03/2019 5:27 PM Advance Directive(s) 11/29/2019 4:47 PM Advance Directive(s) 10/12/2018 9:37 AM Advance Directive(s) 03/11/2017 8:24 AM Advance Directive(s) 02/09/2017 2:06 PM Advance Directive(s) 02/09/2017 2:07 PM Documents on File Type Date Recorded Patient Log Haul Chain Feeder Expl anation Advance Directive(s) 02/09/2017 2:07 PM Documents on File Type Date Recorded Patient Log Haul Chain Feeder Expl anation Advance Directive(s) 02/17/2022 11:05 AM Advance Directive(s) 02/09/2017 2:07 PM Documents on File Type Date Recorded Patient Log Haul Chain Feeder Expl anation Advance Directive(s) 02/17/2022 11:05 AM Latest Code Status on File Code Status Date Activated Date Inactivated Comments Full Code 08/15/2020 1:47 PM 08/21/2020 6:53 PM Question Answer Comments Full Code Order Discussed With: Patient Latest Code Status on File Code Status Date Activated Date Inactivated Comments Full Code 08/15/2020 1:47 PM 08/21/2020 6:53 PM Question Answer Comments Full Code Order Discussed With: Patient Latest Code Status on File Code Status Date Activated Date Inactivated Comments Full Code 08/15/2020 1:47 PM 08/21/2020 6:53 PM Question Answer Comments Full Code Order Discussed With: Patient Procedure Findings Note HNO ID: [id number] Author: Cale Sahu Service: ? Author Type: Nurse Counter Server Type: Anesthesia Procedure Notes Filed: 02/16/2020 7:51 AM Note Text: ANESTHESIOLOGY PROCEDURE NOTE Airway General Information Procedure Start Time/Medication Administration: 02/16/2020 7:42 AM Patient location during procedure: OR Staffing FIRE PREVENTION INSPECTOR: Brittany Sahu Performed by: SHANEKA Indications and Patient Condition Preoxygenated: yes Difficult Mask: No Indications for airway management: anesthesia anesthesia circuit Method: sleep Final Airway Details Final airway type: endotracheal airway Final Endotracheal Airway: ETT Cuffed: yes Successful intubation technique: direct laryngoscopy Devices used: Solorio Blade size: #4 ETT size (mm): 6.5 Measured from: gums Measurement (cm): 21 Placement verified by: capnometry Cormack-Lehane Classification: grade I - full view of glottis Number of attempts at approach: 1 Airway not difficult SIGNATURE: Brittany Hernandez APRN.CRNA PATIENT NAME: Queenie Lorenz (more content not included)... Note HNO ID: [id number] Author: Dariana Pereyra Service: General Surgery Author Type: Physician Type: Brief Op Note Filed: 02/16/2020 10:12 AM Note Text: BRIEF OPERATIVE / PROCEDURE NOTE LOG ID: [id number] SURGERY/PROCEDURE DATE: 02/16/2020 INCISION/PROCEDURE START TIME: 8:06 AM INCISION CLOSE/PROCEDURE END TIME: 9:56 AM SURGEON(S)/PROCEDURALIST(S) AND SENIOR LEAD PROJECT MANAGER(S): Surgeon(s) and Role: * Patel Villanueva - Primary * Valorie Pereyra - Fellow Grout Machine Operator: Vikram Campbell SURGERY/PROCEDURE(S): Parathyroid exploration ANESTHESIA: General FINDINGS: 4 gland hyperplasia with enlarged, abnormal appearing glands. Right lower gland was smallest and appeared most normal so was left as a remnant. Other 3 glands excised and preserved for cryo. ESTIMATED BLOOD LOSS: 5 mls SPECIMENS: Left upper parathyroid, right upper parathyroid, right lower parathyroid COMPLICATIONS: None PRE-OP/PRE-PROCEDURE DIAGNOSIS: Primary hyperparathyroidism POST-OP/POST-PROCEDURE DIAGNOSIS: Same as Preop SIGNATUR (more content not included)... 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) Procedures CT CHEST W IVCON DIAGNOSTIC COMPUTED TOMOGRAPHY THORAX W/CONTRAST Nimisha Aleman, TIN DIPPER.SAWMILL 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 [address] [place] [address] Ct Imaging Referral ID Status Reason Start Date Expiration Date V isits Requested Visits Authorized [id number] Closed Auto-Generate d Referral 11/11/2021 12/11/2022 1 1 Specialty Diagnoses / Procedures Referred By Eduardo westbrook Referred To Contact CT IMAGING Diagnoses 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, estrogen receptor positive (HCC) 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) Procedures CT ABD/PEL W IVCON CT ABD & PELVIS W/CONTRAST Nimisha Aleman, TIN DIPPER.SAWMILL 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 [address] [place] [address] Ct Imaging Referral ID Status Reason Start Date Expiration Date V isits Requested Visits Authorized [id number] Closed Auto-Generate d Referral 11/11/2021 12/11/2022 1 1 Specialty Diagnoses / Procedures Referred By Contac t Referred To Contact Neurology Diagnoses Neuropathy Procedures CONSULT TO NEUROLOGY OFFICE/OUTPATIENT [facility] 60-74 MINUTES Daniela Chan DO [address] [place] [address] Referral ID Status Reason Start Date Expiration Date Visits Requested Visits Authorized [id number] Authorized PCP Requested Referral 11/26/2021 11/26/2022 1 1 Specialty Diagnoses / Procedures Referred By Contac t Referred To Contact CT IMAGING Diagnoses IPMN (intraductal papillary mucinous neoplasm) Abdominal pain, unspecified abdominal location Procedures CT PANCREAS/PELVIS W IVCON CT ABD & PELVIS W/CONTRAST Vikram Gomez MD [address] [place] [address] Ct Imaging Referral ID Status Reason Start Date Expiration Date Visits Requested Visits Authorized [id number] Pending Review Auto-Generat ed Referral 12/20/2021 01/19/2023 1 1 Referral ID Status Reason Start Date Expiration Date V isits Requested Visits Authorized [id number] Closed Auto-Generate d Referral 12/20/2021 01/19/2023 1 1 Specialty Diagnoses / Procedures Referred By Contac t Referred To Contact CT IMAGING Diagnoses 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, estrogen receptor positive (HCC) Lung nodules Cough Procedures CT CHEST W IVCON DIAGNOSTIC COMPUTED TOMOGRAPHY THORAX W/CONTRAST Nimisha Aleman, [place].SAWMILL 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 [address] [place] [address] Ct Imaging Referral ID Status Reason Start Date Expiration Date V isits Requested Visits Authorized [id number] Closed Auto-Generate d Referral 11/22/2021 12/22/2022 1 1 Specialty Diagnoses / Procedures Referred By Contac t Referred To Contact Podiatry Diagnoses Fallen arches Procedures CONSULT TO PODIATRY OFFICE/OUTPATIENT [facility] 60-74 MINUTES Tala Negron MD [facility] [place] [address] Referral ID Status Reason Start Date Expiration Date Visits Requested Visits Authorized [id number] Authorized PCP Requested Referral 05/21/2023 1 1 Specialty Diagnoses / Procedures Referred By Contac t Referred To Contact CT IMAGING Diagnoses 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, estrogen receptor positive (HCC) Lung nodules 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) Procedures CT CHEST W IVCON DIAGNOSTIC COMPUTED TOMOGRAPHY THORAX W/CONTRAST Nimisha Aleman APRN.SAWMILL 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 [address] [place] [address] Ct Imaging Referral ID Status Reason Start Date Expiration Date Visits Requested Visits Authorized [id number] Authorized Auto-Generat ed Referral 05/23/2022 06/22/2023 1 1 Specialty Diagnoses / Procedures Referred By Contac t Referred To Contact [facility] Diagnoses Fall in home, initial encounter Left upper arm pain Unsteady gait when walking Procedures CONSULT TO PHYSICAL THERAPY PHYSICAL THERAPY EVALUATION HIGH COMPLEX 45 MINS Tala Negron MD [address] [place] [address] [facility] [place] [address] [place] [address] Referral ID Status Reason Start Date Expiration Date Visits Requested Visits Authorized [id number] Authorized PCP Requested Referral Auto-Generate d Referral 08/19/2022 08/19/2023 99 99 Specialty Diagnoses / Procedures Referred By Contac t Referred To Contact XR IMAGING Diagnoses Fall in home, initial encounter Left upper arm pain Procedures XR HUMERUS 2V AP/LAT LEFT RADEX HUMERUS MINIMUM 2 VIEWS Tala Negron MD [address] [place] [address] Xr Imaging Referral ID Status Reason Start Date Expiration Date V isits Requested Visits Authorized [id number] Closed Auto-Generate d Referral 08/19/2022 09/18/2023 1 1 Specialty Diagnoses / Procedures Referred By Contac t Referred To Contact XR IMAGING Diagnoses Fall in home, initial encounter Left upper arm pain Procedures XR SHOULDER GENERAL 3V OR MORE AP/TRUE AP/OTHER LEFT RADEX SHOULDER COMPLETE MINIMUM 2 VIEWS Tala Negron MD [address] [place] [address] Xr Imaging Referral ID Status Reason Start Date Expiration Date V isits Requested Visits Authorized [id number] Closed Auto-Generate d Referral 08/19/2022 09/18/2023 1 1 Specialty Diagnoses / Procedures Referred By Contac t Referred To Contact Nephrology Diagnoses Stage 3b chronic kidney disease (HCC) Procedures CONSULT TO NEPHROLOGY OFFICE/OUTPATIENT NEW HIGH MDM 60-74 MINUTES Melanie Strong APRN.SAWMILL 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 [address] [place] [address] Referral ID Status Reason Start Date Expiration Date Visits Requested Visits Authorized [id number] Authorized PCP Requested Referral 02/16/2023 02/16/2024 1 1 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) Abnormal radionuclide bone scan Procedures MRI HIP WO/W IVCON RIGHT MRI ANY JT LOWER EXTREM W/O & W/CONTRAST MATRL Nimisha Aleman APRN.SAWMILL 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 [address] [place] [address] [place] [address] Referral ID Status Reason Start Date Expiration Date V isits Requested Visits Authorized [id number] Closed Auto-Generate d Referral 11/07/2022 12/07/2023 1 1 Specialty Diagnoses / Procedures Referred By Contac t Referred To Contact Procedures CARDIOVASCULAR MEDICINE OP FOLLOW UP APPT ORDER Humberto Wing MD [address] [place] [address] Referral ID Status Reason Start Date Expiration Date Visits Requested Visits Authorized [id number] Ref Not Required PCP Requested Referral 06/23/2023 06/22/2024 1 1 Health Concerns Problem Noted Date High Risk Chronic Disease Home Monitorin g Problem 11/04/2022 Problem Noted Date High Risk Chronic Disease Home Monitorin g Problem 11/04/2022 Problem Noted Date High Risk Chronic Disease Home Monitorin g Problem 11/04/2022 Problem Noted Date Diagnosed Date High Risk Chronic Disease Home Monitoring [facility] 11/04/2022 Problem Noted Date Diagnosed Date High Risk Chronic Disease Home Monitoring [place] 11/04/2022 Problem Noted Date Diagnosed Date High Risk Chronic Disease Home Monitoring [place] 11/04/2022 Problem Noted Date Diagnosed Date High Risk Chronic Disease Home Monitoring [place] 11/04/2022 Problem Noted Date Diagnosed Date High Risk Chronic Disease Home Monitoring [facility] 11/04/2022 Problem Noted Date Diagnosed Date High Risk Chronic Disease Home Monitoring [place] 11/04/2022 Problem Noted Date Diagnosed Date High Risk Chronic Disease Home Monitoring [facility] 11/04/2022 Problem Noted Date Diagnosed Date High Risk Chronic Disease Home Monitoring [facility] 11/04/2022 Problem Noted Date Diagnosed Date High Risk Chronic Disease Home Monitoring [facility] 11/04/2022 Problem Noted Date Diagnosed Date High Risk Chronic Disease Home Monitoring [facility] 11/04/2022 Problem Noted Date Diagnosed Date High Risk Chronic Disease Home Monitoring [place] 11/04/2022 Problem Noted Date Diagnosed Date High Risk Chronic Disease Home Monitoring [facility] 11/04/2022 Problem Noted Date Diagnosed Date High Risk Chronic Disease Home Monitoring [facility] 11/04/2022 Problem Noted Date Diagnosed Date High Risk Chronic Disease Home Monitoring [facility] 11/04/2022 Problem Noted Date Diagnosed Date High Risk Chronic Disease Home Monitoring [facility] 11/04/2022 Problem Noted Date Diagnosed Date High Risk Chronic Disease Home Monitoring [facility] 11/04/2022 Problem Noted Date Diagnosed Date High Risk Chronic Disease Home Monitoring [facility] 11/04/2022 Problem Noted Date Diagnosed Date High Risk Chronic Disease Home Monitoring [facility] 11/04/2022 Problem Noted Date Diagnosed Date High Risk Chronic Disease Home Monitoring [facility] 11/04/2022 Problem Noted Date Diagnosed Date High Risk Chronic Disease Home Monitoring [facility] 11/04/2022 Problem Noted Date Diagnosed Date High Risk Chronic Disease Home Monitoring [facility] 11/04/2022 Problem Noted Date Diagnosed Date High Risk Chronic Disease Home Monitoring [facility] 11/04/2022 Problem Noted Date Diagnosed Date High Risk Chronic Disease Home Monitoring [facility] 11/04/2022 Additional Source Comments INFORMATION SOURCE (unrecogn ized section and content) DATE CREATED AUTHOR AUTHOR'S ORGANIZ ATION 05/05/2023 [facility] DATE CREATED AUTHOR AUTHOR'S ORGANIZ ATION 07/15/2023 [facility] Source Comments (unrecognize d section and content) In the event this informatio n is protected by the Federal Confidentiality of Alcohol and Drug Abuse Patient Records regulations: The Federal rules restrict any use of the information to criminally investigate or prosecute any alcohol or drug abuse patient.[facility] the event this information is protected by the Federal Confidentiality of Alcohol and Drug Abuse Patient Records regulations: The Federal rules restrict any use of the information to criminally investigate or prosecute any alcohol or drug abuse patient.[facility]In the event this information is protected by the Federal Confidentiality of Alcohol and Drug Abuse Patient Records regulations: The Federal rules restrict any use of the information to criminally investigate or prosecute any alcohol or drug abuse patient.[facility]In the event this information is protected by the Federal Confidentiality of Alcohol and Drug Abuse Patient Records regulations: The Federal rules restrict any use of the information to criminally investigate or prosecute any alcohol or drug abuse patient.[facility]In the event this information is protected by the Federal Confidentiality of Alcohol and Drug Abuse Patient Records regulations: The Federal rules restrict any use of the information to criminally investigate or prosecute any alcohol or drug abuse patient.[facility]In the event this information is protected by the Federal Confidentiality of Alcohol and Drug Abuse Patient Records regulations: The Federal rules restrict any use of the information to criminally investigate or prosecute any alcohol or drug abuse patient.[facility] HealthIn the event this information is protected by the Federal Confidentiality of Alcohol and Drug Abuse Patient Records regulations: The Federal rules restrict any use of the information to criminally investigate or prosecute any alcohol or drug abuse patient.[facility]In the event this information is protected by the Federal Confidentiality of Alcohol and Drug Abuse Patient Records regulations: The Federal rules restrict any use of the information to criminally investigate or prosecute any alcohol or drug abuse patient.[facility]In the event this information is protected by the Federal Confidentiality of Alcohol and Drug Abuse Patient Records regulations: The Federal rules restrict any use of the information to criminally investigate or prosecute any alcohol or drug abuse patient.[facility]In the event this information is protected by the Federal Confidentiality of Alcohol and Drug Abuse Patient Records regulations: The Federal rules restrict any use of the information to criminally investigate or prosecute any alcohol or drug abuse patient.[facility]In the event this information is protected by the Federal Confidentiality of Alcohol and Drug Abuse Patient Records regulations: The Federal rules restrict any use of the information to criminally investigate or prosecute any alcohol or drug abuse patient.[facility] HealthIn the event this information is protected by the Federal Confidentiality of Alcohol and Drug Abuse Patient Records regulations: The Federal rules restrict any use of the information to criminally investigate or prosecute any alcohol or drug abuse patient.[facility] HealthIn the event this information is protected by the Federal Confidentiality of Alcohol and Drug Abuse Patient Records regulations: The Federal rules restrict any use of the information to criminally investigate or prosecute any alcohol or drug abuse patient.[facility] HealthIn the event this information is protected by the Federal Confidentiality of Alcohol and Drug Abuse Patient Records regulations: The Federal rules restrict any use of the information to criminally investigate or prosecute any alcohol or drug abuse patient.[facility] HealthIn the event this information is protected by the Federal Confidentiality of Alcohol and Drug Abuse Patient Records regulations: The Federal rules restrict any use of the information to criminally investigate or prosecute any alcohol or drug abuse patient.[facility] HealthIn the event this information is protected by the Federal Confidentiality of Alcohol and Drug Abuse Patient Records regulations: The Federal rules restrict any use of the information to criminally investigate or prosecute any alcohol or drug abuse patient.[facility]In the event this information is protected by the Federal Confidentiality of Alcohol and Drug Abuse Patient Records regulations: The Federal rules restrict any use of the information to criminally investigate or prosecute any alcohol or drug abuse patient.[facility] HealthIn the event this information is protected by the Federal Confidentiality of Alcohol and Drug Abuse Patient Records regulations: The Federal rules restrict any use of the information to criminally investigate or prosecute any alcohol or drug abuse patient.[facility] HealthIn the event this information is protected by the Federal Confidentiality of Alcohol and Drug Abuse Patient Records regulations: The Federal rules restrict any use of the information to criminally investigate or prosecute any alcohol or drug abuse patient.[facility] HealthIn the event this information is protected by the Federal Confidentiality of Alcohol and Drug Abuse Patient Records regulations: The Federal rules restrict any use of the information to criminally investigate or prosecute any alcohol or drug abuse patient.[facility] HealthIn the event this information is protected by the Federal Confidentiality of Alcohol and Drug Abuse Patient Records regulations: The Federal rules restrict any use of the information to criminally investigate or prosecute any alcohol or drug abuse patient.[facility] HealthIn the event this information is protected by the Federal Confidentiality of Alcohol and Drug Abuse Patient Records regulations: The Federal rules restrict any use of the information to criminally investigate or prosecute any alcohol or drug abuse patient.[facility] HealthIn the event this information is protected by the Federal Confidentiality of Alcohol and Drug Abuse Patient Records regulations: The Federal rules restrict any use of the information to criminally investigate or prosecute any alcohol or drug abuse patient.[facility] HealthIn the event this information is protected by the Federal Confidentiality of Alcohol and Drug Abuse Patient Records regulations: The Federal rules restrict any use of the information to criminally investigate or prosecute any alcohol or drug abuse patient.[facility] HealthIn the event this information is protected by the Federal Confidentiality of Alcohol and Drug Abuse Patient Records regulations: The Federal rules restrict any use of the information to criminally investigate or prosecute any alcohol or drug abuse patient.[facility] HealthIn the event this information is protected by the Federal Confidentiality of Alcohol and Drug Abuse Patient Records regulations: The Federal rules restrict any use of the information to criminally investigate or prosecute any alcohol or drug abuse patient.[facility] HealthIn the event this information is protected by the Federal Confidentiality of Alcohol and Drug Abuse Patient Records regulations: The Federal rules restrict any use of the information to criminally investigate or prosecute any alcohol or drug abuse patient.[facility] HealthIn the event this information is protected by the Federal Confidentiality of Alcohol and Drug Abuse Patient Records regulations: The Federal rules restrict any use of the information to criminally investigate or prosecute any alcohol or drug abuse patient.[facility] HealthIn the event this information is protected by the Federal Confidentiality of Alcohol and Drug Abuse Patient Records regulations: The Federal rules restrict any use of the information to criminally investigate or prosecute any alcohol or drug abuse patient.[facility] HealthIn the event this information is protected by the Federal Confidentiality of Alcohol and Drug Abuse Patient Records regulations: The Federal rules restrict any use of the information to criminally investigate or prosecute any alcohol or drug abuse patient.[facility] HealthIn the event this information is protected by the Federal Confidentiality of Alcohol and Drug Abuse Patient Records regulations: The Federal rules restrict any use of the information to criminally investigate or prosecute any alcohol or drug abuse patient.[facility] HealthIn the event this information is protected by the Federal Confidentiality of Alcohol and Drug Abuse Patient Records regulations: The Federal rules restrict any use of the information to criminally investigate or prosecute any alcohol or drug abuse patient.[facility] HealthIn the event this information is protected by the Federal Confidentiality of Alcohol and Drug Abuse Patient Records regulations: The Federal rules restrict any use of the information to criminally investigate or prosecute any alcohol or drug abuse patient.[facility] HealthIn the event this information is protected by the Federal Confidentiality of Alcohol and Drug Abuse Patient Records regulations: The Federal rules restrict any use of the information to criminally investigate or prosecute any alcohol or drug abuse patient.[facility] HealthIn the event this information is protected by the Federal Confidentiality of Alcohol and Drug Abuse Patient Records regulations: The Federal rules restrict any use of the information to criminally investigate or prosecute any alcohol or drug abuse patient.[facility]In the event this information is protected by the Federal Confidentiality of Alcohol and Drug Abuse Patient Records regulations: The Federal rules restrict any use of the information to criminally investigate or prosecute any alcohol or drug abuse patient.[facility] HealthIn the event this information is protected by the Federal Confidentiality of Alcohol and Drug Abuse Patient Records regulations: The Federal rules restrict any use of the information to criminally investigate or prosecute any alcohol or drug abuse patient.[facility]In the event this information is protected by the Federal Confidentiality of Alcohol and Drug Abuse Patient Records regulations: The Federal rules restrict any use of the information to criminally investigate or prosecute any alcohol or drug abuse patient.[facility] HealthIn the event this information is protected by the Federal Confidentiality of Alcohol and Drug Abuse Patient Records regulations: The Federal rules restrict any use of the information to criminally investigate or prosecute any alcohol or drug abuse patient.[facility]In the event this information is protected by the Federal Confidentiality of Alcohol and Drug Abuse Patient Records regulations: The Federal rules restrict any use of the information to criminally investigate or prosecute any alcohol or drug abuse patient.[facility]In the event this information is protected by the Federal Confidentiality of Alcohol and Drug Abuse Patient Records regulations: The Federal rules restrict any use of the information to criminally investigate or prosecute any alcohol or drug abuse patient.[facility]In the event this information is protected by the Federal Confidentiality of Alcohol and Drug Abuse Patient Records regulations: The Federal rules restrict any use of the information to criminally investigate or prosecute any alcohol or drug abuse patient.[facility]In the event this information is protected by the Federal Confidentiality of Alcohol and Drug Abuse Patient Records regulations: The Federal rules restrict any use of the information to criminally investigate or prosecute any alcohol or drug abuse patient.[facility]In the event this information is protected by the Federal Confidentiality of Alcohol and Drug Abuse Patient Records regulations: The Federal rules restrict any use of the information to criminally investigate or prosecute any alcohol or drug abuse patient.[facility]In the event this information is protected by the Federal Confidentiality of Alcohol and Drug Abuse Patient Records regulations: The Federal rules restrict any use of the information to criminally investigate or prosecute any alcohol or drug abuse patient.[facility]In the event this information is protected by the Federal Confidentiality of Alcohol and Drug Abuse Patient Records regulations: The Federal rules restrict any use of the information to criminally investigate or prosecute any alcohol or drug abuse patient.[facility]In the event this information is protected by the Federal Confidentiality of Alcohol and Drug Abuse Patient Records regulations: The Federal rules restrict any use of the information to criminally investigate or prosecute any alcohol or drug abuse patient.[facility]In the event this information is protected by the Federal Confidentiality of Alcohol and Drug Abuse Patient Records regulations: The Federal rules restrict any use of the information to criminally investigate or prosecute any alcohol or drug abuse patient.[facility]In the event this information is protected by the Federal Confidentiality of Alcohol and Drug Abuse Patient Records regulations: The Federal rules restrict any use of the information to criminally investigate or prosecute any alcohol or drug abuse patient.[facility]In the event this information is protected by the Federal Confidentiality of Alcohol and Drug Abuse Patient Records regulations: The Federal rules restrict any use of the information to criminally investigate or prosecute any alcohol or drug abuse patient.[facility]In the event this information is protected by the Federal Confidentiality of Alcohol and Drug Abuse Patient Records regulations: The Federal rules restrict any use of the information to criminally investigate or prosecute any alcohol or drug abuse patient.[facility]In the event this information is protected by the Federal Confidentiality of Alcohol and Drug Abuse Patient Records regulations: The Federal rules restrict any use of the information to criminally investigate or prosecute any alcohol or drug abuse patient.[facility]In the event this information is protected by the Federal Confidentiality of Alcohol and Drug Abuse Patient Records regulations: The Federal rules restrict any use of the information to criminally investigate or prosecute any alcohol or drug abuse patient.[facility]In the event this information is protected by the Federal Confidentiality of Alcohol and Drug Abuse Patient Records regulations: The Federal rules restrict any use of the information to criminally investigate or prosecute any alcohol or drug abuse patient.[facility]In the event this information is protected by the Federal Confidentiality of Alcohol and Drug Abuse Patient Records regulations: The Federal rules restrict any use of the information to criminally investigate or prosecute any alcohol or drug abuse patient.[facility]In the event this information is protected by the Federal Confidentiality of Alcohol and Drug Abuse Patient Records regulations: The Federal rules restrict any use of the information to criminally investigate or prosecute any alcohol or drug abuse patient.[facility]In the event this information is protected by the Federal Confidentiality of Alcohol and Drug Abuse Patient Records regulations: The Federal rules restrict any use of the information to criminally investigate or prosecute any alcohol or drug abuse patient.[facility]In the event this information is protected by the Federal Confidentiality of Alcohol and Drug Abuse Patient Records regulations: The Federal rules restrict any use of the information to criminally investigate or prosecute any alcohol or drug abuse patient.[facility]In the event this information is protected by the Federal Confidentiality of Alcohol and Drug Abuse Patient Records regulations: The Federal rules restrict any use of the information to criminally investigate or prosecute any alcohol or drug abuse patient.[facility]In the event this information is protected by the Federal Confidentiality of Alcohol and Drug Abuse Patient Records regulations: The Federal rules restrict any use of the information to criminally investigate or prosecute any alcohol or drug abuse patient.[facility]In the event this information is protected by the Federal Confidentiality of Alcohol and Drug Abuse Patient Records regulations: The Federal rules restrict any use of the information to criminally investigate or prosecute any alcohol or drug abuse patient.[facility]In the event this information is protected by the Federal Confidentiality of Alcohol and Drug Abuse Patient Records regulations: The Federal rules restrict any use of the information to criminally investigate or prosecute any alcohol or drug abuse patient.[facility]In the event this information is protected by the Federal Confidentiality of Alcohol and Drug Abuse Patient Records regulations: The Federal rules restrict any use of the information to criminally investigate or prosecute any alcohol or drug abuse patient.[facility]In the event this information is protected by the Federal Confidentiality of Alcohol and Drug Abuse Patient Records regulations: The Federal rules restrict any use of the information to criminally investigate or prosecute any alcohol or drug abuse patient.[facility]In the event this information is protected by the Federal Confidentiality of Alcohol and Drug Abuse Patient Records regulations: The Federal rules restrict any use of the information to criminally investigate or prosecute any alcohol or drug abuse patient.[facility]In the event this information is protected by the Federal Confidentiality of Alcohol and Drug Abuse Patient Records regulations: The Federal rules restrict any use of the information to criminally investigate or prosecute any alcohol or drug abuse patient.[facility]In the event this information is protected by the Federal Confidentiality of Alcohol and Drug Abuse Patient Records regulations: The Federal rules restrict any use of the information to criminally investigate or prosecute any alcohol or drug abuse patient.[facility]In the event this information is protected by the Federal Confidentiality of Alcohol and Drug Abuse Patient Records regulations: The Federal rules restrict any use of the information to criminally investigate or prosecute any alcohol or drug abuse patient.[facility]In the event this information is protected by the Federal Confidentiality of Alcohol and Drug Abuse Patient Records regulations: The Federal rules restrict any use of the information to criminally investigate or prosecute any alcohol or drug abuse patient.[facility]In the event this information is protected by the Federal Confidentiality of Alcohol and Drug Abuse Patient Records regulations: The Federal rules restrict any use of the information to criminally investigate or prosecute any alcohol or drug abuse patient.[facility]In the event this information is protected by the Federal Confidentiality of Alcohol and Drug Abuse Patient Records regulations: The Federal rules restrict any use of the information to criminally investigate or prosecute any alcohol or drug abuse patient.[facility]In the event this information is protected by the Federal Confidentiality of Alcohol and Drug Abuse Patient Records regulations: The Federal rules restrict any use of the information to criminally investigate or prosecute any alcohol or drug abuse patient.[facility]In the event this information is protected by the Federal Confidentiality of Alcohol and Drug Abuse Patient Records regulations: The Federal rules restrict any use of the information to criminally investigate or prosecute any alcohol or drug abuse patient.[facility]In the event this information is protected by the Federal Confidentiality of Alcohol and Drug Abuse Patient Records regulations: The Federal rules restrict any use of the information to criminally investigate or prosecute any alcohol or drug abuse patient.[facility]In the event this information is protected by the Federal Confidentiality of Alcohol and Drug Abuse Patient Records regulations: The Federal rules restrict any use of the information to criminally investigate or prosecute any alcohol or drug abuse patient.[facility]In the event this information is protected by the Federal Confidentiality of Alcohol and Drug Abuse Patient Records regulations: The Federal rules restrict any use of the information to criminally investigate or prosecute any alcohol or drug abuse patient.[facility]In the event this information is protected by the Federal Confidentiality of Alcohol and Drug Abuse Patient Records regulations: The Federal rules restrict any use of the information to criminally investigate or prosecute any alcohol or drug abuse patient.[facility]In the event this information is protected by the Federal Confidentiality of Alcohol and Drug Abuse Patient Records regulations: The Federal rules restrict any use of the information to criminally investigate or prosecute any alcohol or drug abuse patient.[facility]In the event this information is protected by the Federal Confidentiality of Alcohol and Drug Abuse Patient Records regulations: The Federal rules restrict any use of the information to criminally investigate or prosecute any alcohol or drug abuse patient.[facility]In the event this information is protected by the Federal Confidentiality of Alcohol and Drug Abuse Patient Records regulations: The Federal rules restrict any use of the information to criminally investigate or prosecute any alcohol or drug abuse patient.[facility]In the event this information is protected by the Federal Confidentiality of Alcohol and Drug Abuse Patient Records regulations: The Federal rules restrict any use of the information to criminally investigate or prosecute any alcohol or drug abuse patient.[facility]In the event this information is protected by the Federal Confidentiality of Alcohol and Drug Abuse Patient Records regulations: The Federal rules restrict any use of the information to criminally investigate or prosecute any alcohol or drug abuse patient.[facility]In the event this information is protected by the Federal Confidentiality of Alcohol and Drug Abuse Patient Records regulations: The Federal rules restrict any use of the information to criminally investigate or prosecute any alcohol or drug abuse patient.[facility]In the event this information is protected by the Federal Confidentiality of Alcohol and Drug Abuse Patient Records regulations: The Federal rules restrict any use of the information to criminally investigate or prosecute any alcohol or drug abuse patient.[facility]In the event this information is protected by the Federal Confidentiality of Alcohol and Drug Abuse Patient Records regulations: The Federal rules restrict any use of the information to criminally investigate or prosecute any alcohol or drug abuse patient.[facility]In the event this information is protected by the Federal Confidentiality of Alcohol and Drug Abuse Patient Records regulations: The Federal rules restrict any use of the information to criminally investigate or prosecute any alcohol or drug abuse patient.[facility]In the event this information is protected by the Federal Confidentiality of Alcohol and Drug Abuse Patient Records regulations: The Federal rules restrict any use of the information to criminally investigate or prosecute any alcohol or drug abuse patient.[facility]In the event this information is protected by the Federal Confidentiality of Alcohol and Drug Abuse Patient Records regulations: The Federal rules restrict any use of the information to criminally investigate or prosecute any alcohol or drug abuse patient.[facility]In the event this information is protected by the Federal Confidentiality of Alcohol and Drug Abuse Patient Records regulations: The Federal rules restrict any use of the information to criminally investigate or prosecute any alcohol or drug abuse patient.[facility]In the event this information is protected by the Federal Confidentiality of Alcohol and Drug Abuse Patient Records regulations: The Federal rules restrict any use of the information to criminally investigate or prosecute any alcohol or drug abuse patient.[facility]In the event this information is protected by the Federal Confidentiality of Alcohol and Drug Abuse Patient Records regulations: The Federal rules restrict any use of the information to criminally investigate or prosecute any alcohol or drug abuse patient.[facility]In the event this information is protected by the Federal Confidentiality of Alcohol and Drug Abuse Patient Records regulations: The Federal rules restrict any use of the information to criminally investigate or prosecute any alcohol or drug abuse patient.[facility]In the event this information is protected by the Federal Confidentiality of Alcohol and Drug Abuse Patient Records regulations: The Federal rules restrict any use of the information to criminally investigate or prosecute any alcohol or drug abuse patient.[facility]In the event this information is protected by the Federal Confidentiality of Alcohol and Drug Abuse Patient Records regulations: The Federal rules restrict any use of the information to criminally investigate or prosecute any alcohol or drug abuse patient.[facility]In the event this information is protected by the Federal Confidentiality of Alcohol and Drug Abuse Patient Records regulations: The Federal rules restrict any use of the information to criminally investigate or prosecute any alcohol or drug abuse patient.[facility]In the event this information is protected by the Federal Confidentiality of Alcohol and Drug Abuse Patient Records regulations: The Federal rules restrict any use of the information to criminally investigate or prosecute any alcohol or drug abuse patient.[facility]In the event this information is protected by the Federal Confidentiality of Alcohol and Drug Abuse Patient Records regulations: The Federal rules restrict any use of the information to criminally investigate or prosecute any alcohol or drug abuse patient.[facility]In the event this information is protected by the Federal Confidentiality of Alcohol and Drug Abuse Patient Records regulations: The Federal rules restrict any use of the information to criminally investigate or prosecute any alcohol or drug abuse patient.[facility]In the event this information is protected by the Federal Confidentiality of Alcohol and Drug Abuse Patient Records regulations: The Federal rules restrict any use of the information to criminally investigate or prosecute any alcohol or drug abuse patient.[facility]In the event this information is protected by the Federal Confidentiality of Alcohol and Drug Abuse Patient Records regulations: The Federal rules restrict any use of the information to criminally investigate or prosecute any alcohol or drug abuse patient.[facility]In the event this information is protected by the Federal Confidentiality of Alcohol and Drug Abuse Patient Records regulations: The Federal rules restrict any use of the information to criminally investigate or prosecute any alcohol or drug abuse patient.[facility]In the event this information is protected by the Federal Confidentiality of Alcohol and Drug Abuse Patient Records regulations: The Federal rules restrict any use of the information to criminally investigate or prosecute any alcohol or drug abuse patient.[facility]In the event this information is protected by the Federal Confidentiality of Alcohol and Drug Abuse Patient Records regulations: The Federal rules restrict any use of the information to criminally investigate or prosecute any alcohol or drug abuse patient.[facility]In the event this information is protected by the Federal Confidentiality of Alcohol and Drug Abuse Patient Records regulations: The Federal rules restrict any use of the information to criminally investigate or prosecute any alcohol or drug abuse patient.[facility]In the event this information is protected by the Federal Confidentiality of Alcohol and Drug Abuse Patient Records regulations: The Federal rules restrict any use of the information to criminally investigate or prosecute any alcohol or drug abuse patient.[facility]In the event this information is protected by the Federal Confidentiality of Alcohol and Drug Abuse Patient Records regulations: The Federal rules restrict any use of the information to criminally investigate or prosecute any alcohol or drug abuse patient.[facility]In the event this information is protected by the Federal Confidentiality of Alcohol and Drug Abuse Patient Records regulations: The Federal rules restrict any use of the information to criminally investigate or prosecute any alcohol or drug abuse patient.[facility]In the event this information is protected by the Federal Confidentiality of Alcohol and Drug Abuse Patient Records regulations: The Federal rules restrict any use of the information to criminally investigate or prosecute any alcohol or drug abuse patient.[facility]In the event this information is protected by the Federal Confidentiality of Alcohol and Drug Abuse Patient Records regulations: The Federal rules restrict any use of the information to criminally investigate or prosecute any alcohol or drug abuse patient.[facility]In the event this information is protected by the Federal Confidentiality of Alcohol and Drug Abuse Patient Records regulations: The Federal rules restrict any use of the information to criminally investigate or prosecute any alcohol or drug abuse patient.[facility]In the event this information is protected by the Federal Confidentiality of Alcohol and Drug Abuse Patient Records regulations: The Federal rules restrict any use of the information to criminally investigate or prosecute any alcohol or drug abuse patient.[facility]In the event this information is protected by the Federal Confidentiality of Alcohol and Drug Abuse Patient Records regulations: The Federal rules restrict any use of the information to criminally investigate or prosecute any alcohol or drug abuse patient.[facility]In the event this information is protected by the Federal Confidentiality of Alcohol and Drug Abuse Patient Records regulations: The Federal rules restrict any use of the information to criminally investigate or prosecute any alcohol or drug abuse patient.[facility]In the event this information is protected by the Federal Confidentiality of Alcohol and Drug Abuse Patient Records regulations: The Federal rules restrict any use of the information to criminally investigate or prosecute any alcohol or drug abuse patient.[facility]In the event this information is protected by the Federal Confidentiality of Alcohol and Drug Abuse Patient Records regulations: The Federal rules restrict any use of the information to criminally investigate or prosecute any alcohol or drug abuse patient.[facility]In the event this information is protected by the Federal Confidentiality of Alcohol and Drug Abuse Patient Records regulations: The Federal rules restrict any use of the information to criminally investigate or prosecute any alcohol or drug abuse patient.[facility]In the event this information is protected by the Federal Confidentiality of Alcohol and Drug Abuse Patient Records regulations: The Federal rules restrict any use of the information to criminally investigate or prosecute any alcohol or drug abuse patient.[facility]In the event this information is protected by the Federal Confidentiality of Alcohol and Drug Abuse Patient Records regulations: The Federal rules restrict any use of the information to criminally investigate or prosecute any alcohol or drug abuse patient.[facility]In the event this information is protected by the Federal Confidentiality of Alcohol and Drug Abuse Patient Records regulations: The Federal rules restrict any use of the information to criminally investigate or prosecute any alcohol or drug abuse patient.[facility]In the event this information is protected by the Federal Confidentiality of Alcohol and Drug Abuse Patient Records regulations: The Federal rules restrict any use of the information to criminally investigate or prosecute any alcohol or drug abuse patient.[facility]In the event this information is protected by the Federal Confidentiality of Alcohol and Drug Abuse Patient Records regulations: The Federal rules restrict any use of the information to criminally investigate or prosecute any alcohol or drug abuse patient.[facility]In the event this information is protected by the Federal Confidentiality of Alcohol and Drug Abuse Patient Records regulations: The Federal rules restrict any use of the information to criminally investigate or prosecute any alcohol or drug abuse patient.[facility]In the event this information is protected by the Federal Confidentiality of Alcohol and Drug Abuse Patient Records regulations: The Federal rules restrict any use of the information to criminally investigate or prosecute any alcohol or drug abuse patient.[facility]In the event this information is protected by the Federal Confidentiality of Alcohol and Drug Abuse Patient Records regulations: The Federal rules restrict any use of the information to criminally investigate or prosecute any alcohol or drug abuse patient.[facility] HealthIn the event this information is protected by the Federal Confidentiality of Alcohol and Drug Abuse Patient Records regulations: The Federal rules restrict any use of the information to criminally investigate or prosecute any alcohol or drug abuse patient.[facility] HealthIn the event this information is protected by the Federal Confidentiality of Alcohol and Drug Abuse Patient Records regulations: The Federal rules restrict any use of the information to criminally investigate or prosecute any alcohol or drug abuse patient.[facility] HealthIn the event this information is protected by the Federal Confidentiality of Alcohol and Drug Abuse Patient Records regulations: The Federal rules restrict any use of the information to criminally investigate or prosecute any alcohol or drug abuse patient.[facility] HealthIn the event this information is protected by the Federal Confidentiality of Alcohol and Drug Abuse Patient Records regulations: The Federal rules restrict any use of the information to criminally investigate or prosecute any alcohol or drug abuse patient.[facility] HealthIn the event this information is protected by the Federal Confidentiality of Alcohol and Drug Abuse Patient Records regulations: The Federal rules restrict any use of the information to criminally investigate or prosecute any alcohol or drug abuse patient.[facility] Teams (unrecognized sec tion and content) Cigarette Book Maker Relationship Specialty Start Date End Date Tala Negron MD [address] [place] [address] PCP - General Family Practice 01/26/17 J Luis Cid [address] [place] [address] Physician Oncology 01/16/17 Indu Lipscomb (Rn), RN [address] [place] [address] Specialty General Utility Worker Hematology/Oncology 01/16/17 No, Referral Referring 03/29/19 Howard Cody MD [address] [place] [address] Primary Staff Physician Cardiology 09/07/18 Estefani Bryant MD, MD [address] [facility] [place] [place] [id number] Physician Radiation Oncology 02/17/20 Kami Toure, RN Specialty General Utility Worker Oncology 06/29/20 Vikram Gomez MD [address] [place], [place] [id number] Referring General Surgery 08/20/20 Vikram Gomez MD [address] [place], [place] 2028495 Home Care Physician General Surgery 08/20/20 Lesley Oviedo pump house technicianAdding Machine Operator 02/20/21 Cigarette Book Maker Relationship Specialty Start Date End Date Tala Negron MD [address] [place], [place] [id number] PCP - General Family Practice 01/26/17 J Luis Cid [address] [place] [address] Physician Oncology 01/16/17 Indu Lipscomb (Rn), RN [address] [place] [address] Specialty General Utility Worker Hematology/Oncology 01/16/17 No, Referral Referring 03/29/19 Howard Cody MD [address] [place] [address] Primary Staff Physician Cardiology 09/07/18 Estefani Bryant MD, [address] [place], [place] [id number] Physician Radiation Oncology 02/17/20 Kami Toure, RN Specialty General Utility Worker Oncology 06/29/20 Vikram Gomez MD [address] [place], [place] 8021895 Referring General Surgery 08/20/20 Vikram Gomez MD [address] [place] [address] Home Care Physician General Surgery 08/20/20 Lesley Oviedo, pump house technicianAdding Machine Operator 02/20/21 Cigarette Book Maker Relationship Specialty Start Date End Date Tala Negron MD [address] [place], [place] [id number] PCP - General Family Practice 01/26/17 J Luis Cid [address] [place] [address] Physician Oncology 01/16/17 Indu Lipscomb (Rn), RN [address] [place] [address] Specialty General Utility Worker Hematology/Oncology 01/16/17 No, Referral Referring 03/29/19 Howard Cody MD [address] [place], [place] 8794495 Primary Staff Physician Cardiology 09/07/18 Estefani Bryant MD, [address] [facility] [place], [place] [id number] Physician Radiation Oncology 02/17/20 Kami Toure, RN Specialty General Utility Worker Oncology 06/29/20 Vikram Gomez MD [address] [place], [place] 3874595 Referring General Surgery 08/20/20 Vikram Gomez MD [address] [place] [address] Home Care Physician General Surgery 08/20/20 Lesley Oviedo, pump house technicianAdding Machine Operator 02/20/21 Cigarette Book Maker Relationship Specialty Start Date End Date Tala Negron MD [address] [place], [place] [id number] PCP - General Family Practice 01/26/17 J Luis Cid [address] [place] [address] Physician Oncology 01/16/17 Indu Lipscomb (Rn), RN [address] [place] [address] Specialty General Utility Worker Hematology/Oncology 01/16/17 No, Referral Referring 03/29/19 Howard Cody MD [address] [place] [address] Primary Staff Physician Cardiology 09/07/18 Estefani Bryant MD, [address] [place], [place] [id number] Physician Radiation Oncology 02/17/20 Kami Toure, RN Specialty General Utility Worker Oncology 06/29/20 Vikram Gomez MD [address] [place], [place] 6409595 Referring General Surgery 08/20/20 Vikram Gomez MD [address] [place], [place] 7903595 Home Care Physician General Surgery 08/20/20 Lesley Oviedo, pump house technicianAdding Machine Operator 02/20/21 Cigarette Book Maker Relationship Specialty Start Date End Date Tala Negron MD [address] [place], [place] [id number] PCP - General Family Practice 01/26/17 J Luis Cid [address] [place] [address] Physician Oncology 01/16/17 Indu Lipscomb (Rn), RN [address] [place] [address] Specialty General Utility Worker Hematology/Oncology 01/16/17 No, Referral Referring 03/29/19 Howard Cody MD [address] [place], [place] 8797695 Primary Staff Physician Cardiology 09/07/18 Estefani Bryant MD, [address] [place], [place] 20246[address] Physician Radiation Oncology 02/17/20 Kami Toure, RN Specialty General Utility Worker Oncology 06/29/20 Vikram Gomez MD [address] [place], [place] 3264895 Referring General Surgery 08/20/20 Vikram Gomez MD [address] [place], [place] 0795495 Home Care Physician General Surgery 08/20/20 Lesley Oviedo pump house technicianAdding Machine Operator 02/20/21 Cigarette Book Maker Relationship Specialty Start Date End Date Tala Negron MD [address] [place], [place] [id number] PCP - General Family Practice 01/26/17 J Luis Cid [address] [place], [place] 0319606 Physician Oncology 01/16/17 Indu Lipscomb (Rn), RN [address] [place], [place] 7269395 Specialty General Utility Worker Hematology/Oncology 01/16/17 No, Referral Referring 03/29/19 Howard Cody MD [address] [place], [place] 9296495 Primary Staff Physician Cardiology 09/07/18 Estefani Bryant MD, [address] [place], [place] [address] Physician Radiation Oncology 02/17/20 Kami Toure, RN Specialty General Utility Worker Oncology 06/29/20 Vikram Gomez MD [address] [place], [place] 6225816 Referring General Surgery 08/20/20 Vikram Gomez MD [address] [place] [address] Home Care Physician General Surgery 08/20/20 Lesley Oviedo RN [address] [place], [place] 0665631 Adding Machine Operator 02/20/21 Cigarette Book Maker Relationship Specialty Start Date End Date Tala Negron MD [address] [place], [place] [id number] PCP - General Family Practice 01/26/17 J Luis Cid [address]656 [place], [place] 4252206 Physician Oncology 01/16/17 Indu Lipscomb (Rn), RN [address] [place] [address] Specialty General Utility Worker Hematology/Oncology 01/16/17 No, Referral Referring 03/29/19 Howard Cody MD [address] [place], [place] 7303895 Primary Staff Physician Cardiology 09/07/18 Estefani Bryant MD, [address] [place], [place] 86366691 Physician Radiation Oncology 02/17/20 Kami Toure RN Specialty General Utility Worker Oncology 06/29/20 Vikram Gomez MD [address] [place], [place] 3366495 Referring General Surgery 08/20/20 Vkiram Gomez MD [address] [place] [address] Home Care Physician General Surgery 08/20/20 Lesley Oviedo RN [address] [place], [place] [id number] Adding Machine Operator 02/20/21 Cigarette Book Maker Relationship Specialty Start Date End Date Tala Negron MD [address] [place], [place] [id number] PCP - General Family Practice 01/26/17 J Luis Cid [address] [place] [address] Physician Oncology 01/16/17 Indu Lipscomb (Rn), RN [address] [place] [address] Specialty General Utility Worker Hematology/Oncology 01/16/17 No, Referral Referring 03/29/19 Howard Cody MD [address] [place] [address] Primary Staff Physician Cardiology 09/07/18 Estefani Bryant MD, [address] [place], [place] 91042691 Physician Radiation Oncology 02/17/20 Kami Toure, DEE Specialty General Utility Worker Oncology 06/29/20 Vikram Gomez MD [address] [place] [address] Referring General Surgery 08/20/20 Vikram Gomez MD [address] [place] [address] Home Care Physician General Surgery 08/20/20 Lesley Oviedo RN [address] [place], [place] [phone] Adding Machine Operator 02/20/21 Cigarette Book Maker Relationship Specialty Start Date End Date Tala Negron MD [address] [place], [place] [id number] PCP - General Family Practice 01/26/17 J Luis Cid [address] [place] [address] Physician Oncology 01/16/17 Indu Lpiscomb (Rn), RN [address] [place], [place] 9621795 Specialty General Utility Worker Hematology/Oncology 01/16/17 No, Referral Referring 03/29/19 Howard Cody MD [address] [place] [address] Primary Staff Physician Cardiology 09/07/18 Estefani Bryant MD, [address] [place], [place] 21904691 Physician Radiation Oncology 02/17/20 Kami Toure RN Specialty General Utility Worker Oncology 06/29/20 Vikram Gomez MD [address] [place], [place] 4712695 Referring General Surgery 08/20/20 Vikram Gomez MD [address] [place], [place] 1529995 Home Care Physician General Surgery 08/20/20 Lesley Oviedo, RN [address] [place] [address] Adding Machine Operator 02/20/21 Cigarette Book Maker Relationship Specialty Start Date End Date Tala Negron MD [address] [place], [place] [id number] PCP - General Family Practice 01/26/17 J Luis Cid [address] [place] [address] Physician Oncology 01/16/17 DeisiIndu li (Rn), RN [address] [place], [place] 6611095 Specialty General Utility Worker Hematology/Oncology 01/16/17 No, Referral Referring 03/29/19 Howard Cody MD [address] [place] [address] Primary Staff Physician Cardiology 09/07/18 Estefani Bryant MD, [address] [place] 436[address] Physician Radiation Oncology 02/17/20 Kami Toure, DEE Specialty General Utility Worker Oncology 06/29/20 Vikram Gomez MD [address] [place] [address] Referring General Surgery 08/20/20 Vikram Gomez MD [address] [place], [place] 2124695 Home Care Physician General Surgery 08/20/20 Lesley Oviedo RN [address] [place] [address] Adding Machine Operator 02/20/21 Cigarette Book Maker Relationship Specialty Start Date End Date Tala Negron MD [address] [place], [place] [id number] PCP - General Family Practice 01/26/17 J Luis Cid [address]240 [place] [address] Physician Oncology 01/16/17 Indu Lipscomb (Rn), RN [address] [place], [place] 6229795 Specialty General Utility Worker Hematology/Oncology 01/16/17 No, Referral Referring 03/29/19 Howard Cody MD [address] [place], [place] 2896095 Primary Staff Physician Cardiology 09/07/18 Estefani Bryant MD, [address] [place], [place] 15854[address] Physician Radiation Oncology 02/17/20 Doup, Kami, RN Specialty General Utility Worker Oncology 06/29/20 Vikram Gomez MD [address] [place] [address] Referring General Surgery 08/20/20 Vikram Gomez MD [address] [place] [address] Home Care Physician General Surgery 08/20/20 Lesley Oviedo RN [address] [place], [place] 5080931 Adding Machine Operator 02/20/21 Daniela Chan DO [address] [place] [address] Primary Staff Physician Cardiology 11/19/21 Cigarette Book Maker Relationship Specialty Start Date End Date Tala Negron MD [address] [place], [place] [id number] PCP - General Family Practice 01/26/17 J Luis Cid [address] [place] [address] Physician Oncology 01/16/17 Indu Lipscomb (Rn), RN [address] [place] [address] Specialty General Utility Worker Hematology/Oncology 01/16/17 No, Referral Referring 03/29/19 Howard Cody MD [address] [place] [address] Primary Staff Physician Cardiology 09/07/18 Estefani Bryant MD, [address] [place], [place] 55955691 Physician Radiation Oncology 02/17/20 Kami Toure RN Specialty General Utility Worker Oncology 06/29/20 Vikram Gomez MD [address] [place], [place] 6583595 Referring General Surgery 08/20/20 Vikram Gomez MD [address] [place], [place] 4585795 Home Care Physician General Surgery 08/20/20 Lesley Oviedo, RN [address] [place], [place] [phone] Adding Machine Operator 02/20/21 Daniela Chan DO [address] [place], [place] 3489295 Primary Staff Physician Cardiology 11/19/21 Cigarette Book Maker Relationship Specialty Start Date End Date Tala Negron MD [address] [place], [place] [id number] PCP - General Family Practice 01/26/17 J Luis Cid 62249 [place], [place] 7012906 Physician Oncology 01/16/17 Indu Lipscomb (Rn), RN [address] [place], [place] 2626995 Specialty General Utility Worker Hematology/Oncology 01/16/17 No, Referral Referring 03/29/19 Howard Cody MD [address] [place], [place] 6865395 Primary Staff Physician Cardiology 09/07/18 Estefani Bryant MD, [address] [place] [place], [place] 84620691 Physician Radiation Oncology 02/17/20 Kami Toure, DEE Specialty General Utility Worker Oncology 06/29/20 Vikram Gomez MD [address] [place], [place] 3445095 Referring General Surgery 08/20/20 Vikram Gomez MD [address] [place], [place] 1376795 Home Care Physician General Surgery 08/20/20 Lesley Oviedo RN [address] [place] [address] Adding Machine Operator 02/20/21 Daniela Chan DO [address] [place], [place] 4764795 Primary Staff Physician Cardiology 11/19/21 Cigarette Book Maker Relationship Specialty Start Date End Date Tala Negron MD [address] [place], [place] [id number] PCP - General Family Practice 01/26/17 J Luis Cid [address]5216 [place] [address] Physician Oncology 01/16/17 Indu Lipscomb (Rn), RN [address] [place] [address] Specialty General Utility Worker Hematology/Oncology 01/16/17 No, Referral Referring 03/29/19 Howard Cody MD [address] [place], [place] 3305995 Primary Staff Physician Cardiology 09/07/18 Estefani Bryant MD, MD [address] [place], [place] 65149691 Physician Radiation Oncology 02/17/20 Kami Toure RN Specialty General Utility Worker Oncology 06/29/20 Vikram Gomez MD [address] [place], [place] 8398195 Referring General Surgery 08/20/20 Vikram Gomez MD [address] [place], [place] 0229295 Home Care Physician General Surgery 08/20/20 Lesley Oviedo RN [address] [place] [address] Adding Machine Operator 02/20/21 Daniela Cahn DO [address] [place], [place] 1850095 Primary Staff Physician Cardiology 11/19/21 Cigarette Book Maker Relationship Specialty Start Date End Date Tala Negron MD [address] [place], [place] 030111 PCP - General Family Practice 01/26/17 J Luis Cid [address]898 [place] [address] Physician Oncology 01/16/17 Indu Lipscomb (Rn), RN [address] [place], [place] 1159595 Specialty General Utility Worker Hematology/Oncology 01/16/17 No, Referral Referring 03/29/19 Howard Cody MD [address] [place], [place] 8808295 Primary Staff Physician Cardiology 09/07/18 Estefani Bryant MD, [address] [place], [place] 54941691 Physician Radiation Oncology 02/17/20 Kami Toure, DEE Specialty General Utility Worker Oncology 06/29/20 Vikram Gomez MD [address] [place], [place] 6019595 Referring General Surgery 08/20/20 Vikram oGmez MD [address] [place] [address] Home Care Physician General Surgery 08/20/20 Lesley Oviedo, RN [address] [place] [address] Adding Machine Operator 02/20/21 Daniela Chan DO [address] [place], [place] 8620595 Primary Staff Physician Cardiology 11/19/21 Cigarette Book Maker Relationship Specialty Start Date End Date Tala Negron MD [address] [place], [place] [id number] PCP - General Family Practice 01/26/17 J Luis Cid [address] [place] [address] Physician Oncology 01/16/17 Indu Lipscomb (Rn), RN [address] [place] [address] Specialty General Utility Worker Hematology/Oncology 01/16/17 No, Referral Referring 03/29/19 Howard Cody MD [address] [place], [place] 1710595 Primary Staff Physician Cardiology 09/07/18 Estefani Bryant MD, [address] [place] [address]647[address] Physician Radiation Oncology 02/17/20 Kami Toure, DEE Specialty General Utility Worker Oncology 06/29/20 Vikram Gomez MD [address] [place], [place] 4364795 Referring General Surgery 08/20/20 Vikram Gomez MD [address] [place], [place] 7648495 Home Care Physician General Surgery 08/20/20 Lesley Oviedo, RN [address] [place], [place] 0326031 Adding Machine Operator 02/20/21 Daniela Chan DO [address] [place] [address] Primary Staff Physician Cardiology 11/19/21 Cigarette Book Maker Relationship Specialty Start Date End Date Tala Negrno MD [address] [place], [place] [id number] PCP - General Family Practice 01/26/17 J Luis Cid [address] [place] [address] Physician Oncology 01/16/17 Indu Lipscomb (Rn), RN [address] [place] [address] Specialty General Utility Worker Hematology/Oncology 01/16/17 No, Referral Referring 03/29/19 Howard Cody MD [address] [place] [address] Primary Staff Physician Cardiology 09/07/18 Estefani Bryant MD, [address] [place] 8396[address]91 Physician Radiation Oncology 02/17/20 aKmi Toure, DEE Specialty General Utility Worker Oncology 06/29/20 Vikram Gomez MD [address] [place] [address] Referring General Surgery 08/20/20 Vikram Gomez MD [address] [place] [address] Home Care Physician General Surgery 08/20/20 Lesley Oviedo, RN [address] [place] [address] Adding Machine Operator 02/20/21 Daniela Chan DO [address] [place] [address] Primary Staff Physician Cardiology 11/19/21 Cigarette Book Maker Relationship Specialty Start Date End Date Tala Negron MD [address] [place], [place] [id number] PCP - General Family Practice 01/26/17 J Luis Cid [address]92 [place] [address] Physician Oncology 01/16/17 DeisiIndu li (Rn), RN [address] [place], [place] 2072695 Specialty General Utility Worker Hematology/Oncology 01/16/17 No, Referral Referring 03/29/19 Howard Cody MD [address] [place] [address] Primary Staff Physician Cardiology 09/07/18 Estefani Bryant MD, [address] [place], [place] 39644691 Physician Radiation Oncology 02/17/20 Kami Toure RN Specialty General Utility Worker Oncology 06/29/20 Vikram Gomez MD [address] [place] [address] Referring General Surgery 08/20/20 Vikram Gomez MD [address] [place] [address] Home Care Physician General Surgery 08/20/20 Lesley Oviedo, RN [address] [place] [address] Adding Machine Operator 02/20/21 Daniela Chan DO [address] [place], [place] 8401995 Primary Staff Physician Cardiology 11/19/21 Cigarette Book Maker Relationship Specialty Start Date End Date Tala Negron MD [address] [place], [place] [id number] PCP - General Family Practice 01/26/17 J Luis Cid [address] [place] [address] Physician Oncology 01/16/17 Indu Lipscomb (Rn), RN [address] [place], [place] 3145595 Specialty General Utility Worker Hematology/Oncology 01/16/17 No, Referral Referring 03/29/19 Howard Cody MD [address] [place] [address] Primary Staff Physician Cardiology 09/07/18 Estefani Bryant MD, [address] [place], [place] 07589691 Physician Radiation Oncology 02/17/20 Kami Toure, DEE Specialty General Utility Worker Oncology 06/29/20 Vikram Gomez MD [address] [place], [place] 7076995 Referring General Surgery 08/20/20 Vikram Gomez MD [address] [place], [place] 0017495 Home Care Physician General Surgery 08/20/20 Lesley Oviedo, RN [address] [place] [address] Adding Machine Operator 02/20/21 Daniela Chan DO [address] [place], [place] 1784895 Primary Staff Physician Cardiology 11/19/21 Cigarette Book Maker Relationship Specialty Start Date End Date Tala Negron MD [address] [place] [address] PCP - General Family Practice 01/26/17 J Luis Cid [address] [place], [place] 6343206 Physician Oncology 01/16/17 Indu Lipscomb (Rn), RN [address] [place], [place] 9809295 Specialty General Utility Worker Hematology/Oncology 01/16/17 No, Referral Referring 03/29/19 Howard Cody MD [address] [place] [address] Primary Staff Physician Cardiology 09/07/18 Estefani Bryant MD, [address] [place], [place] 39379691 Physician Radiation Oncology 02/17/20 Kami Toure, RN Specialty General Utility Worker Oncology 06/29/20 Vikram Gomez MD [address] [place] [address] Referring General Surgery 08/20/20 Vikram Gomez MD [address] [place] [address] Home Care Physician General Surgery 08/20/20 Lesley Oviedo, RN [address] [place], [place] [phone] Adding Machine Operator 02/20/21 Daniela Chan DO [address] [place] [address] Primary Staff Physician Cardiology 11/19/21 Cigarette Book Maker Relationship Specialty Start Date End Date Tala Negron MD [address] [place], [place] [id number] PCP - General Family Practice 01/26/17 J Luis Cid [address] [place] [address] Physician Oncology 01/16/17 Indu Lipscomb (Rn), RN [address] [place] [address] Specialty General Utility Worker Hematology/Oncology 01/16/17 No, Referral Referring 03/29/19 Howard Cody MD [address] [place] [address] Primary Staff Physician Cardiology 09/07/18 Estefani Bryant MD, [address] [facility] [place] [place] [id number] Physician Radiation Oncology 02/17/20 Kami Toure, RN Specialty General Utility Worker Oncology 06/29/20 Vikram Gomez MD [address] [place] [address] Referring General Surgery 08/20/20 Vikram Gomez MD [address] [place] [address] Home Care Physician General Surgery 08/20/20 Lesley Oviedo, RN [address] [place], [place] 8734631 Adding Machine Operator 02/20/21 Daniela Chan DO [address] [place] [address] Primary Staff Physician Cardiology 11/19/21 Cigarette Book Maker Relationship Specialty Start Date End Date Tala Negron MD [address] [place], [place] [id number] PCP - General Family Practice 01/26/17 J Luis Cid [address] [place] [address] Physician Oncology 01/16/17 Indu Lipscomb (Rn), RN [address] [place], [place] 9271995 Specialty General Utility Worker Hematology/Oncology 01/16/17 No, Referral Referring 03/29/19 Howard Cody MD [address] [place] [address] Primary Staff Physician Cardiology 09/07/18 Estefani Bryant MD, MD [address] [place], [place] 70065691 Physician Radiation Oncology 02/17/20 Kami Toure RN Specialty General Utility Worker Oncology 06/29/20 Vikram Gomez MD [address] [place] [address] Referring General Surgery 08/20/20 Vikram Gomez MD [address] [place] [address] Home Care Physician General Surgery 08/20/20 Lesley Oviedo, RN [address] [place], [place] [phone] Adding Machine Operator 02/20/21 Daniela Chan DO [address] [place] [address] Primary Staff Physician Cardiology 11/19/21 Cigarette Book Maker Relationship Specialty [place] [address] [place] [address] [id number] PCP - General Family Practice 01/26/17 J Luis Cid [address]005 [place] [address] Physician Oncology 01/16/17 Indu Lipscomb (Rn), RN [address] [place] [address] Specialty General Utility Worker Hematology/Oncology 01/16/17 No, Referral Referring 03/29/19 Howard Cody MD [address] [place] [address] Primary Staff Physician Cardiology 09/07/18 Estefani Bryant MD, [address] [place], [place] 71325691 Physician Radiation Oncology 02/17/20 Kami Toure, RN Specialty General Utility Worker Oncology 06/29/20 Vikram Gomez MD [address] [place], [place] 6484995 Referring General Surgery 08/20/20 Vikram Gomez MD [address] [place], [place] 2800695 Home Care Physician General Surgery 08/20/20 Lesley Oviedo, RN [address] [place], [place] 1568131 Adding Machine Operator 02/20/21 Daniela Chan DO [address] [place], [place] 3675695 Primary Staff Physician Cardiology 11/19/21 Cigarette Book Maker Relationship Specialty Start Date End Date Tala Negron MD [address] [place], [place] [id number] PCP - General Family Practice 01/26/17 J Luis Cid [address] [place] [address] Physician Oncology 01/16/17 Indu Lipscomb (Rn), RN [address] [place], [place] 4282995 Specialty General Utility Worker Hematology/Oncology 01/16/17 No, Referral Referring 03/29/19 Howard Cody MD [address] [place], [place] 2011295 Primary Staff Physician Cardiology 09/07/18 Estefani Bryant MD, [address] [place], [place] 66756691 Physician Radiation Oncology 02/17/20 Kami Toure, RN Specialty General Utility Worker Oncology 06/29/20 Vikram Gomez MD [address] [place], [place] 2950495 Referring General Surgery 08/20/20 Vikram Gomez MD [address] [place] [address] Home Care Physician General Surgery 08/20/20 Lesley Oviedo, RN [address] [place] [address] Adding Machine Operator 02/20/21 Daniela Chan DO [address] [place] [address] Primary Staff Physician Cardiology 11/19/21 Cigarette Book Maker Relationship Specialty Start Date End Date Tala Negron MD [address] [place], [place] [id number] PCP - General Family Practice 01/26/17 J Luis Cid [address] [place], [place] 2528706 Physician Oncology 01/16/17 Indu Lipscomb (Rn), RN [address] [place], [place] 5745695 Specialty General Utility Worker Hematology/Oncology 01/16/17 No, Referral Referring 03/29/19 Howard Cody MD [address] [place] [address] Primary Staff Physician Cardiology 09/07/18 Estefani Bryant MD, [address] [place], [place] 53178691 Physician Radiation Oncology 02/17/20 Kami Toure RN Specialty General Utility Worker Oncology 06/29/20 Vikram Gomez MD [address] [place] [address] Referring General Surgery 08/20/20 Vikram Gomez MD [address] [place] [address] Home Care Physician General Surgery 08/20/20 Lesley Oviedo RN [address] [place] [address] Adding Machine Operator 02/20/21 Daniela Chan DO [address] [place] [address] Primary Staff Physician Cardiology 11/19/21 Cigarette Book Maker Relationship Specialty Start Date End Date Tala Negron MD [address] [place], [place] 282701 PCP - General Family Practice 01/26/17 J Luis Cid [address] [place] [address] Physician Oncology 01/16/17 Indu Lipscomb (Rn), RN [address] [place] [address] Specialty General Utility Worker Hematology/Oncology 01/16/17 No, Referral Referring 03/29/19 Howard Cody MD [address] [place] [address] Primary Staff Physician Cardiology 09/07/18 Estefani Bryant MD, [address] [place], [place] [id number] Physician Radiation Oncology 02/17/20 Kami Toure, RN Specialty General Utility Worker Oncology 06/29/20 Vikram Gomez MD [address] [place] [address] Referring General Surgery 08/20/20 Vikram Gomez MD [address] [place] [address] Home Care Physician General Surgery 08/20/20 Lesley Oviedo, RN [address] [place] [address] Adding Machine Operator 02/20/21 Daniela Chan DO [address] [place] [address] Primary Staff Physician Cardiology 11/19/21 Cigarette Book Maker Relationship Specialty Start Date End Date Tala Negron MD [address] [place], [place] [id number] PCP - General Family Medicine 01/26/17 J Luis Cid [address] [place], [place] 4251906 Physician Oncology 01/16/17 Indu Lipscomb (Rn), RN 0660 [place] [address] Specialty General Utility Worker Hematology/Oncology 01/16/17 No, Referral Referring 03/29/19 Howard Cody MD [address] [place], [place] [id number] Primary Staff Physician Cardiology 09/07/18 Estefani Bryant MD, [address] [place], [place] [id number] Physician Radiation Oncology 02/17/20 Kami Toure, DEE Specialty General Utility Worker Oncology 06/29/20 Vikram Gomez MD [address] [place], [place] [id number] Referring General Surgery 08/20/20 Vikram Gomez MD [address] [place] [address] Home Care Provider General Surgery 08/20/20 Lesley Oviedo, RN [address] [place], [place] [id number] Adding Machine Operator 02/20/21 Daniela Chan DO [address] [place] [address] Primary Staff Physician Cardiology 11/19/21 Cigarette Book Maker Relationship Specialty Start Date End Date Tala Negron MD [address] [place], [place] [id number] PCP - General Family Medicine 01/26/17 J Luis Cid [address] [place] [address] Physician Oncology 01/16/17 Indu Lipscomb (Rn), RN 9500 [place] [address] Specialty General Utility Worker Hematology/Oncology 01/16/17 No, Referral Referring 03/29/19 Howard Cody MD [address] [place] [address] Primary Staff Physician Cardiology 09/07/18 Estefani Bryant MD, [address] [place], [place] [id number] Physician Radiation Oncology 02/17/20 Kami Toure, DEE Specialty General Utility Worker Oncology 06/29/20 Vikram Gomez MD [address] [place] [address] Referring General Surgery 08/20/20 Vikram Gomez MD [address] [place] [address] Home Care Provider General Surgery 08/20/20 Lesley Oviedo, RN [address] [place] [address] Adding Machine Operator 02/20/21 Daniela Chan DO [address] [place] [address] Primary Staff Physician Cardiology 11/19/21 Cigarette Book Maker Relationship Specialty Start Date End Date Tala Negron MD [address] [place], [place] [id number] PCP - General Family Medicine 01/26/17 J Luis Cid [address] [place] [address] Physician Oncology 01/16/17 DeisiIndu li (Rn), RN [address]00 [place], [place] 8290695 Specialty General Utility Worker Hematology/Oncology 01/16/17 No, Referral Referring 03/29/19 Howard Cody MD [address] [place] [address] Primary Staff Physician Cardiology 09/07/18 Estefani Bryant MD, [address] [place], [place] [id number] Physician Radiation Oncology 02/17/20 Kami Toure, DEE Specialty General Utility Worker Oncology 06/29/20 Vikram Gomez MD [address] [place] [address] Referring General Surgery 08/20/20 Vikram Gomez MD [address] [place] [address] Home Care Provider General Surgery 08/20/20 Lesley Oviedo, RN [address] [place] [address] Adding Machine Operator 02/20/21 Daniela Chan DO [address] [place] [address] Primary Staff Physician Cardiology 11/19/21 Cigarette Book Maker Relationship Specialty Start Date End Date Tala Negron MD [address] [place], [place] [id number] PCP - General Family Medicine 01/26/17 J Luis Cid [address] [place] [address] Physician Oncology 01/16/17 Indu Lipscomb (Rn), RN 23[address] [place], [place] 6972295 Specialty General Utility Worker Hematology/Oncology 01/16/17 No, Referral Referring 03/29/19 Howard Cody MD [address] [place], [place] 0296095 Primary Staff Physician Cardiology 09/07/18 Estefani Bryant MD, [address] [place], [place] [phone] Physician Radiation Oncology 02/17/20 Kami Toure, RN Specialty General Utility Worker Oncology 06/29/20 Vikram Gomez MD [address] [place], [place] [id number] Referring General Surgery 08/20/20 Vikram Gomez MD [address] [place] [address] Home Care Provider General Surgery 08/20/20 Daniela Chan DO [address] [place] [address] Primary Staff Physician Cardiology 11/19/21 Lucas Pastor, DEE [address] [place] [address] Adding Machine Operator Family Medicine 02/20/21 Cigarette Book Maker Relationship Specialty Start Date End Date Tala Negron MD [address] [place] [address] PCP - General Family Medicine 01/26/17 J Luis Cid [address] [place] [address] Physician Oncology 01/16/17 Indu Lipscomb (Rn), RN [address] [place], [place] 8590995 Specialty General Utility Worker Hematology/Oncology 01/16/17 No, Referral Referring 03/29/19 Howard Cody MD [address] [place], [place] 7193995 Primary Staff Physician Cardiology 09/07/18 Estefani Bryant MD, [address] [place], [place] [id number] Physician Radiation Oncology 02/17/20 Kami Toure, RN Specialty General Utility Worker Oncology 06/29/20 Vikram Gomez MD [address] [place], [place] 9170195 Referring General Surgery 08/20/20 Vikram Gomez MD [address] [place], [place] 0441795 Home Care Provider General Surgery 08/20/20 Daniela Chan DO [address] [place], [place] [id number] Primary Staff Physician Cardiology 11/19/21 Lucas Pastor, DEE [address] [place], [place] [id number] Adding Machine Operator Family Medicine 02/20/21 Cigarette Book Maker Relationship Specialty Start Date End Date Tala Negron MD [address] [place], [place] [id number] PCP - General Family Medicine 01/26/17 J Luis Cid [address] [place] [address] Physician Oncology 01/16/17 Indu Lipscomb (Rn), RN [address]127 [place] [address] Specialty General Utility Worker Hematology/Oncology 01/16/17 No, Referral Referring 03/29/19 Howard Cody MD [address] [place] [address] Primary Staff Physician Cardiology 09/07/18 Estefani Bryant MD, [address] [place] [place], [place] 88863691 Physician Radiation Oncology 02/17/20 Kami Toure, RN Specialty General Utility Worker Oncology 06/29/20 Vikram Gomez MD [address] [place], [place] [phone] Referring General Surgery 08/20/20 Vikram Gomez MD [address] [place], [place] 0617195 Home Care Provider General Surgery 08/20/20 Daniela Chan DO [address] [place], [place] [id number] Primary Staff Physician Cardiology 11/19/21 Lucas Pastor, RN [address] [place], [place] [phone] Adding Machine Operator Family Medicine 02/20/21 Cigarette Book Maker Relationship Specialty Start Date End Date Tala Negron MD [address] [place], [place] [id number] PCP - General Family Medicine 01/26/17 J Luis Cid [address] [place], [place] 2333306 Physician Oncology 01/16/17 Indu Lipscomb (Rn), RN [address] [place], [place] 1471795 Specialty General Utility Worker Hematology/Oncology 01/16/17 No, Referral Referring 03/29/19 Howard Cody MD [address] [place] [address] Primary Staff Physician Cardiology 09/07/18 Estefani Bryant MD, [address] [place], [place] [address], [place] 18728691 Physician Radiation Oncology 02/17/20 Kami Toure RN Specialty General Utility Worker Oncology 06/29/20 Vikram Gomez MD [address] [place] [address] Referring General Surgery 08/20/20 Vikram Gomez MD [address] [place], [place] 5999895 Home Care Provider General Surgery 08/20/20 Daniela Chan DO [address] [place], [place] 2945995 Primary Staff Physician Cardiology 11/19/21 Lucas Pastor, RN [address] [place] [address] Adding Machine Operator Family Medicine 02/20/21 Cigarette Book Maker Relationship Specialty Start Date End Date Tala Negron MD [facility]0 [place], [place] [id number] PCP - General Family Medicine 01/26/17 J Luis Cid [address]35[address] [place] [address] Physician Oncology 01/16/17 Indu Lipscomb (Rn), RN [address] [place], [place] 9008595 Specialty General Utility Worker Hematology/Oncology 01/16/17 No, Referral Referring 03/29/19 Howard Cody MD [address] [place], [place] 2488295 Primary Staff Physician Cardiology 09/07/18 Estefani Bryant MD, [address] [facility] [place] [place] 30659691 Physician Radiation Oncology 02/17/20 Kami Toure, DEE Specialty General Utility Worker Oncology 06/29/20 Vikram Gomez MD [address] [place], [place] 9596995 Referring General Surgery 08/20/20 Vikram Gomez MD [address] [place], [place] 0160795 Home Care Provider General Surgery 08/20/20 Daniela Chan DO [address] [place], [place] 6937495 Primary Staff Physician Cardiology 11/19/21 Lucas Pastor, RN [address] [place], [place] [phone] Adding Machine Operator Family Medicine 04/23/22 Cigarette Book Maker Relationship Specialty Start Date End Date Tala Negron MD [address] [place], [place] [id number] PCP - General Family Medicine 01/26/17 J Luis Cid 78001 [place], [place] 1791506 Physician Oncology 01/16/17 Indu Lipscomb (Rn), RN [address] [place], [place] 8789995 Specialty General Utility Worker Hematology/Oncology 01/16/17 No, Referral Referring 03/29/19 Howard Cody MD [address] [place], [place] 8397395 Primary Staff Physician Cardiology 09/07/18 Estefani Bryant MD, [address] [place], [place] 74432691 Physician Radiation Oncology 02/17/20 Kami Toure, RN Specialty General Utility Worker Oncology 06/29/20 Vikram Gomez MD [address] [place], [place] 9258595 Referring General Surgery 08/20/20 Vikram Gomez MD [address] [place], [place] 3934895 Home Care Provider General Surgery 08/20/20 Daniela Chan DO 1700 [place] [address] Primary Staff Physician Cardiology 11/19/21 Lucas Pastor, DEE [address] [place], [place] [id number] Adding Machine Operator Family Medicine 04/23/22 Cigarette Book Maker Relationship Specialty Start Date End Date Tala Negron MD [address] [place], [place] [id number] PCP - General Family Medicine 01/26/17 J Luis Cid [address]68[address] [place] [address] Physician Oncology 01/16/17 Indu Lipscomb (Rn), RN 3300 [place] [address] Specialty General Utility Worker Hematology/Oncology 01/16/17 No, Referral Referring 03/29/19 Howard Cody MD [address] [place] [address] Primary Staff Physician Cardiology 09/07/18 Estefani Bryant MD, [address] [place], [place] [id number] Physician Radiation Oncology 02/17/20 Kami Toure, DEE Specialty General Utility Worker Oncology 06/29/20 Vikram Gomez MD [address] [place], [place] [phone] Referring General Surgery 08/20/20 Vikram Gomez MD [address] [place] [address] Home Care Provider General Surgery 08/20/20 Daniela Chan DO [address] [place] [address] Primary Staff Physician Cardiology 11/19/21 Lucas Pastor, DEE [address] [place] [address] Adding Machine Operator Family Medicine 04/23/22 Cigarette Book Maker Relationship Specialty Start Date End Date Tala Negron MD [address] [place], [place] [id number] PCP - General Family Medicine 01/26/17 J Luis Cid [address] [place] [address] Physician Oncology 01/16/17 Indu Lipscomb (Rn), RN [address]00 [place] [address] Specialty General Utility Worker Hematology/Oncology 01/16/17 No, Referral Referring 03/29/19 Howard Cody MD [address] [place] [address] Primary Staff Physician Cardiology 09/07/18 Estefani Bryant MD, [address] [facility] [place] 30309691 Physician Radiation Oncology 02/17/20 Kami Toure, DEE Specialty General Utility Worker Oncology 06/29/20 Vikram Gomez MD [address] [place] [address] Referring General Surgery 08/20/20 Vikram Gomez MD [address] [place] [address] Home Care Provider General Surgery 08/20/20 Daniela Chan DO [address] [place] [address] Primary Staff Physician Cardiology 11/19/21 Lucas Pastor, RN [address] [place], [place] [id number] Adding Machine Operator Family Medicine 04/23/22 Cigarette Book Maker Relationship Specialty Start Date End Date Tala Negron MD [address] [place], [place] [id number] PCP - General Family Medicine 01/26/17 J Luis Cid 30240 [place], [place] 3589206 Physician Oncology 01/16/17 Indu Lipscomb (Rn), RN [address] [place], [place] 0283695 Specialty General Utility Worker Hematology/Oncology 01/16/17 No, Referral Referring 03/29/19 Howard Cody MD [address] [place] [address] Primary Staff Physician Cardiology 09/07/18 Estefani Bryant MD, [address] [place], [place] 80067691 Physician Radiation Oncology 02/17/20 Kami Toure, DEE Specialty General Utility Worker Oncology 06/29/20 Vikram Gomez MD [address] [place] [address] Referring General Surgery 08/20/20 Vikram Gomez MD [address] [place] [address] Home Care Provider General Surgery 08/20/20 Daniela Chan DO [address] [place] [address] Primary Staff Physician Cardiology 11/19/21 Lucas Pastor, DEE [address] [place], [place] [id number] Adding Machine Operator Family Medicine 04/23/22 Cigarette Book Maker Relationship Specialty Start Date End Date Tala Negron MD [address] [place], [place] [id number] PCP - General Family Medicine 01/26/17 J Luis Cid [address] [place] [address] Physician Oncology 01/16/17 DeisiIndu li (Rn), RN 6980 [place] [address] Specialty General Utility Worker Hematology/Oncology 01/16/17 No, Referral Referring 03/29/19 Howard Cody MD [address] [place] [address] Primary Staff Physician Cardiology 09/07/18 Estefani Bryant MD, [address] [place], [place] 25758691 Physician Radiation Oncology 02/17/20 Kami Toure, DEE Specialty General Utility Worker Oncology 06/29/20 Vikram Gomez MD [address] [place] [address] Referring General Surgery 08/20/20 Vikram Gomez MD [address] [place] [address] Home Care Provider General Surgery 08/20/20 Daniela Chan DO [address] [place] [address] Primary Staff Physician Cardiology 11/19/21 Lucas Pastor, DEE [address] [place] [address] Adding Machine Operator Family Medicine 04/23/22 Cigarette Book Maker Relationship Specialty Start Date End Date Tala Negron MD [address] [place], [place] [id number] PCP - General Family Medicine 01/26/17 J Luis Cid [address] [place] [address] Physician Oncology 01/16/17 Indu Lipscomb (Rn), RN 2410 [place] [address] Specialty General Utility Worker Hematology/Oncology 01/16/17 No, Referral Referring 03/29/19 Howard Cody MD [address] [place] [address] Primary Staff Physician Cardiology 09/07/18 Estefani Bryant MD, [address] [place], [place] 56523691 Physician Radiation Oncology 02/17/20 Kami Toure, DEE Specialty General Utility Worker Oncology 06/29/20 Vikram Gomez MD [address] [place], [place] 5308495 Referring General Surgery 08/20/20 Vikram Gomez MD [address] [place], [place] 8656895 Home Care Provider General Surgery 08/20/20 Daniela Chan DO [address] [place], [place] 3377995 Primary Staff Physician Cardiology 11/19/21 Lucas Pastor, DEE [address] [place] [address] Adding Machine Operator Family Medicine 04/23/22 Cigarette Book Maker Relationship Specialty Start Date End Date Tala Negron MD [address] [place] [address] PCP - General Family Medicine 01/26/17 J Luis Cid [address] [place] [address] Physician Oncology 01/16/17 Indu Lipscomb (Rn), RN 5456 [place] [address] Specialty General Utility Worker Hematology/Oncology 01/16/17 No, Referral Referring 03/29/19 Howard Cody MD 4970 [place] [address] Primary Staff Physician Cardiology 09/07/18 Estefani Bryant MD, [address] [place], [place] [id number] Physician Radiation Oncology 02/17/20 Kami Toure, RN Specialty General Utility Worker Oncology 06/29/20 Vikram Gomez MD [address] [place], [place] 5175895 Referring General Surgery 08/20/20 Vikram Gomez MD [address] [place] [address] Home Care Provider General Surgery 08/20/20 Daniela Chan DO [address] [place], [place] 9330695 Primary Staff Physician Cardiology 11/19/21 Lucas Pastor, RN [address] [place], [place] [phone] Adding Machine Operator Family Medicine 04/23/22 Cigarette Book Maker Relationship Specialty Start Date End Date Tala Negron MD [address] [place], [place] [id number] PCP - General Family Medicine 01/26/17 J Luis Cid [address] [place] [address] Physician Oncology 01/16/17 Indu Lipscomb (Rn), RN 9020 [place], [place] 2588395 Specialty General Utility Worker Hematology/Oncology 01/16/17 No, Referral Referring 03/29/19 Howard Cody MD [address] [place], [place] 9373595 Primary Staff Physician Cardiology 09/07/18 Estefani Bryant MD, [address] [place] [address] Physician Radiation Oncology 02/17/20 Kami Toure RN Specialty General Utility Worker Oncology 06/29/20 Vikram Gomez MD [address] [place] [address] Referring General Surgery 08/20/20 Vikram Gomez MD [address] [place] [address] Home Care Provider General Surgery 08/20/20 Dainela Chan DO [address] [place], [place] 9156295 Primary Staff Physician Cardiology 11/19/21 Lucas Pastor, DEE [address] [place], [place] [id number] Adding Machine Operator Family Medicine 04/23/22 Cigarette Book Maker Relationship Specialty Start Date End Date Tala Negron MD [address] [place], [place] [id number] PCP - General Family Medicine 01/26/17 J Luis Cid [address] [place] [address] Physician Oncology 01/16/17 Indu Lipscomb (Rn), RN [address] [place], [place] 9587695 Specialty General Utility Worker Hematology/Oncology 01/16/17 No, Referral Referring 03/29/19 Howard Cody MD [address] [place] [address] Primary Staff Physician Cardiology 09/07/18 Estefani Bryant MD, [address] [place] [address] [id number] Physician Radiation Oncology 02/17/20 Kami Toure RN Specialty General Utility Worker Oncology 06/29/20 Vikram Gomez MD [address] [place], [place] 7597095 Referring General Surgery 08/20/20 Vikram Gomez MD [address] [place] [address] Home Care Provider General Surgery 08/20/20 Daniela Chan DO [address] [place], [place] 0082095 Primary Staff Physician Cardiology 11/19/21 Lucas Pastor, DEE [address] [place], [place] [id number] Adding Machine Operator Family Medicine 04/23/22 Cigarette Book Maker Relationship Specialty Start Date End Date Tala Negron MD [address] [place], [place] [id number] PCP - General Family Medicine 01/26/17 J Luis Cid [address] [place] [address] Physician Oncology 01/16/17 Indu Lipscomb (Rn), RN 4802 [place], [place] 6282395 Specialty General Utility Worker Hematology/Oncology 01/16/17 No, Referral Referring 03/29/19 Howard Cody MD [address]50 [place], [place] 3106695 Primary Staff Physician Cardiology 09/07/18 Estefani Bryant MD, [address] [place], [place] 97567691 Physician Radiation Oncology 02/17/20 Kami Toure, RN Specialty General Utility Worker Oncology 06/29/20 Vikram Gomez MD [address] [place], [place] 6179695 Referring General Surgery 08/20/20 Vikram Gomez MD [address] [place], [place] 0341395 Home Care Provider General Surgery 08/20/20 Daniela Chan DO [address] [place] [address] Primary Staff Physician Cardiology 11/19/21 Lucas Pastor, RN [address] [place], [place] [phone] Adding Machine Operator Family Medicine 04/23/22 Cigarette Book Maker Relationship Specialty Start Date End Date Tala Negron MD [address] [place], [place] [id number] PCP - General Family Medicine 01/26/17 J Luis Cid 94150 [place], [place] 6616206 Physician Oncology 01/16/17 DeisiIndu li (Rn), RN 7570 [place], [place] 8464195 Specialty General Utility Worker Hematology/Oncology 01/16/17 No, Referral Referring 03/29/19 Howard Cody MD [address] [place] [address] Primary Staff Physician Cardiology 09/07/18 Estefani Bryant MD, [address] [place], [place] 94774691 Physician Radiation Oncology 02/17/20 Kami Toure, RN Specialty General Utility Worker Oncology 06/29/20 Vikram Gomez MD [address] [place] [address] Referring General Surgery 08/20/20 Vikram Gomez MD [address] [place] [address] Home Care Provider General Surgery 08/20/20 Daniela Chan DO [address]00 [place] [address] Primary Staff Physician Cardiology 11/19/21 Lucas Pastor, DEE [address] [place], [place] [id number] Adding Machine Operator Family Medicine 04/23/22 Cigarette Book Maker Relationship Specialty Start Date End Date Tala Negron MD [address] [place], [place] [id number] PCP - General Family Medicine 01/26/17 J Luis Cid 31115 [place], [place] 4682006 Physician Oncology 01/16/17 Indu Lipscomb (Rn), RN 2850 [place] [address] Specialty General Utility Worker Hematology/Oncology 01/16/17 No, Referral Referring 03/29/19 Howard Cody MD [address] [place], [place] 2004195 Primary Staff Physician Cardiology 09/07/18 Estefani Bryant MD, [address] [place], [place] [id number] Physician Radiation Oncology 02/17/20 Kami Toure, DEE Specialty General Utility Worker Oncology 06/29/20 Vikram Gomez MD [address] [place] [address] Referring General Surgery 08/20/20 Vikram Gomez MD [address] [place] [address] Home Care Provider General Surgery 08/20/20 Daniela Chan DO [address]00 [place] [address] Primary Staff Physician Cardiology 11/19/21 Lucas Pastor, DEE [address] [place], [place] [id number] Adding Machine Operator Family Medicine 04/23/22 Cigarette Book Maker Relationship Specialty Start Date End Date Tala Negron MD [address] [place], [place] [id number] PCP - General Family Medicine 01/26/17 J Luis Cid [address] [place] [address] Physician Oncology 01/16/17 [facility] ([facility] RN 9500 [place] [address] Specialty General Utility Worker Hematology/Oncology 01/16/17 No, Referral Referring 03/29/19 Howard Cody MD [address] [place] [address] Primary Staff Physician Cardiology 09/07/18 Estefani Bryant MD, [address] [place], [place] [id number] Physician Radiation Oncology 02/17/20 Kami Toure, DEE Specialty General Utility Worker Oncology 06/29/20 Vikram Gomez MD [address] [place] [address] Referring General Surgery 08/20/20 Vikram Gomez MD [address] [place] [address] Home Care Provider General Surgery 08/20/20 Daniela Chan DO [address] [place] [address] Primary Staff Physician Cardiology 11/19/21 Lucas Pastro, RN [address] [place], [place] 5395831 Adding Machine Operator Family Medicine 04/23/22 Cigarette Book Maker Relationship Specialty Start Date End Date Tala Negron MD [address] [place], [place] [id number] PCP - General Family Medicine 01/26/17 J Luis Cid [address]6413 [place], [place] 4215906 Physician Oncology 01/16/17 Indu Lipscomb (Rn), RN 9500 [place] [address] Specialty General Utility Worker Hematology/Oncology 01/16/17 No, Referral Referring 03/29/19 Howard Cody MD [address] [place], [place] 8625995 Primary Staff Physician Cardiology 09/07/18 Estefani Bryant MD, [address] [place], [place] 62645691 Physician Radiation Oncology 02/17/20 Kami Toure, DEE Specialty General Utility Worker Oncology 06/29/20 Vikram Gomez MD [address] [place] [address] Referring General Surgery 08/20/20 Vikram Gomez MD [address] [place] [address] Home Care Provider General Surgery 08/20/20 Daniela Chan DO [address] [place] [address] Primary Staff Physician Cardiology 11/19/21 Lucas Pastor, DEE [address] [place] [address] Adding Machine Operator Family Medicine 04/23/22 Cigarette Book Maker Relationship Specialty Start Date End Date Tala Negron MD [address] [place], [place] [id number] PCP - General Family Medicine 01/26/17 J Luis Cid [address]698 [place] [address] Physician Oncology 01/16/17 Indu Lipscomb (Rn), RN [address] [place] [address] Specialty General Utility Worker Hematology/Oncology 01/16/17 No, Referral Referring 03/29/19 Howard Cody MD [address] [place] [address] Primary Staff Physician Cardiology 09/07/18 Estefani Bryant MD, [address] [place], [place] 98740691 Physician Radiation Oncology 02/17/20 Kami Toure RN Specialty General Utility Worker Oncology 06/29/20 Vikram Gomez MD [address] [place] [address] Referring General Surgery 08/20/20 Vikram Gomez MD [address] [place] [address] Home Care Provider General Surgery 08/20/20 Daniela Chan DO [address] [place] [address] Primary Staff Physician Cardiology 11/19/21 Lucas Pastor, DEE [address] [place] [address] Adding Machine Operator Family Medicine 04/23/22 Cigarette Book Maker Relationship Specialty Start Date End Date Tala Negron MD [address] [place], [place] [id number] PCP - General Family Medicine 01/26/17 J Luis Cid [address] [place] [address] Physician Oncology 01/16/17 Idnu Lipscomb (Rn), RN [address] [place], [place] 6487295 Specialty General Utility Worker Hematology/Oncology 01/16/17 No, Referral Referring 03/29/19 Howard Cody MD [address]20 [place] [address] Primary Staff Physician Cardiology 09/07/18 Estefani Bryant MD, [address] [place] [address] Physician Radiation Oncology 02/17/20 Kami Toure, DEE Specialty General Utility Worker Oncology 06/29/20 Vikram Gomez MD [address] [place], [place] 6623295 Referring General Surgery 08/20/20 Vikram Gomez MD [address] [place], [place] 6969995 Home Care Provider General Surgery 08/20/20 Daniela Chan DO [address] [place] [address] Primary Staff Physician Cardiology 11/19/21 Lucas Pastor, RN [address] [place], [place] [phone] Adding Machine Operator Family Medicine 04/23/22 Cigarette Book Maker Relationship Specialty Start Date End Date Tala Negron MD [address] [place] [address] PCP - General Family Medicine 01/26/17 J Luis Cid [address] [place], [place] 4818606 Physician Oncology 01/16/17 Indu Lipscomb (Rn), RN [address]30 [place], [place] 9777695 Specialty General Utility Worker Hematology/Oncology 01/16/17 No, Referral Referring 03/29/19 Howard Cody MD [address] [place] [address] Primary Staff Physician Cardiology 09/07/18 Estefani Bryant MD, [address] [place], [place] 84667691 Physician Radiation Oncology 02/17/20 Kami Toure, RN Specialty General Utility Worker Oncology 06/29/20 Vikram Gomez MD [address] [place] [address] Referring General Surgery 08/20/20 Vikram Gomez MD [address] [place], [place] 9373495 Home Care Provider General Surgery 08/20/20 Daniela Chan DO [address] [place], [place] [id number] Primary Staff Physician Cardiology 11/19/21 Lucas Pastor, RN [address] [place], [place] [id number] Adding Machine Operator Family Medicine 04/23/22 Cigarette Book Maker Relationship Specialty Start Date End Date Tala Negron MD [address] [place] [id number] PCP - General Family Medicine 01/26/17 J Luis Cid Physician Oncology 01/16/17 Indu Lipscomb (Rn), RN [address] [place], [place] 5952695 Specialty General Utility Worker Hematology/Oncology 01/16/17 No, Referral Referring 03/29/19 Howard Cody MD [address] [place] [address] Primary Staff Physician Cardiology 09/07/18 Estefani Bryant MD, [address] [place], [place] [id number] Physician Radiation Oncology 02/17/20 Kami Toure, RN Specialty General Utility Worker Oncology 06/29/20 Vikram Gomez MD [address] [place] [address] Referring General Surgery 08/20/20 Vikram Gomez MD [address] [place] [address] Home Care Provider General Surgery 08/20/20 Daniela Chan DO [address] [place], [place] [id number] Primary Staff Physician Cardiology 11/19/21 Lucas Pastor, DEE [address] [place], [place] [id number] Adding Machine Operator Family Medicine 04/23/22 Cigarette Book Maker Relationship Specialty Start Date End Date Tala Negron MD [address] [place], [place] [id number] PCP - General Family Medicine 01/26/17 J Luis Cid Physician Oncology 01/16/17 Indu Lipscomb (Rn), RN [address] [place] [address] Specialty General Utility Worker Hematology/Oncology 01/16/17 No, Referral Referring 03/29/19 Howard Cody MD [address] [place] [address] Primary Staff Physician Cardiology 09/07/18 Estefani Bryant MD, [address] [place], [place] [id number] Physician Radiation Oncology 02/17/20 Kami Toure, RN Specialty General Utility Worker Oncology 06/29/20 Vikram Gomez MD [address] [place] [address] Referring General Surgery 08/20/20 Vikram Gomez MD [address] [place], [place] [id number] Home Care Provider General Surgery 08/20/20 Daniela Chan DO [address] [place] [address] Primary Staff Physician Cardiology 11/19/21 Lucas Pastor, DEE [address] [place] [address] [id number] Adding Machine Operator Family Medicine 04/23/22 Cigarette Book Maker Relationship Specialty Start Date End Date Tala Negron MD [address] [place], [place] [id number] PCP - General Family Medicine 01/26/17 J Luis Cid Physician Oncology 01/16/17 Indu Lipscomb (Rn), RN [address] [place], [place] [id number] Specialty General Utility Worker Hematology/Oncology 01/16/17 No, Referral Referring 03/29/19 Howard Cody MD [address] [place], [place] 2799995 Primary Staff Physician Cardiology 09/07/18 Estefani Bryant MD, [address] [place], [place] [id number] Physician Radiation Oncology 02/17/20 Kami Toure, RN Specialty General Utility Worker Oncology 06/29/20 Vikram Gomez MD [address] [place], [place] [id number] Referring General Surgery 08/20/20 Vikram Gomez MD [address] [place], [place] 0207595 Home Care Provider General Surgery 08/20/20 Daniela Chan DO [address] [place], [place] 7510695 Primary Staff Physician Cardiology 11/19/21 Lucas Pastor, RN [address] [place] [address] Adding Machine Operator Family Medicine 04/23/22 Cigarette Book Maker Relationship Specialty Start Date End Date Tala Negron MD [address] [place], [place] [id number] PCP - General Family Medicine 01/26/17 J Luis Cid Physician Oncology 01/16/17 DeisiIndu li (Rn), RN [address] [place] [address] Specialty General Utility Worker Hematology/Oncology 01/16/17 No, Referral Referring 03/29/19 Howard Cody MD [address] [place] [address] Primary Staff Physician Cardiology 09/07/18 Estefani Bryant MD, [address] [place], [place] [id number] Physician Radiation Oncology 02/17/20 Kami Toure, DEE Specialty General Utility Worker Oncology 06/29/20 Vikram Gomez MD [address] [place] [address] Referring General Surgery 08/20/20 Vikram Gomez MD [address] [place] [address] Home Care Provider General Surgery 08/20/20 Daniela Chan DO [address] [place] [address] Primary Staff Physician Cardiology 11/19/21 Lucas Pastor RN [address] [place] [address] Adding Machine Operator Family Medicine 04/23/22 Cigarette Book Maker Relationship Specialty Start Date End Date Tala Negron MD [address] [place], [place] [id number] PCP - General Family Medicine 01/26/17 J Luis Cid Physician Oncology 01/16/17 Indu Lipscomb (Rn), RN [address] [place], [place] [id number] Specialty General Utility Worker Hematology/Oncology 01/16/17 No, Referral Referring 03/29/19 Howard Cody MD [address] [place], [place] 8819695 Primary Staff Physician Cardiology 09/07/18 Estefani Bryant MD, [address] [facility] [place], [place] 31854691 Physician Radiation Oncology 02/17/20 Kami Toure, DEE Specialty General Utility Worker Oncology 06/29/20 Vikram Gomez MD [address] [place] [address] Referring General Surgery 08/20/20 Vikram Gomez MD [address] [place] [address] Home Care Provider General Surgery 08/20/20 Daniela Chan DO [address] [place], [place] 6913295 Primary Staff Physician Cardiology 11/19/21 Lucas Pastor, RN [address] [place], [place] [id number] Adding Machine Operator Family Medicine 04/23/22 Cigarette Book Maker Relationship Specialty Start Date End Date Tala Negron MD [address] [place], [place] [id number] PCP - General Family Medicine 01/26/17 J Luis Cid Physician Oncology 01/16/17 Indu Lipscomb (Rn), RN [address] [facility], [place] [id number] Specialty General Utility Worker Hematology/Oncology 01/16/17 No, Referral Referring 03/29/19 Howard Cody MD [address] [place], [place] 1133595 Primary Staff Physician Cardiology 09/07/18 Estefani Bryant MD, [address] [place] [address] Physician Radiation Oncology 02/17/20 Kami Toure RN Specialty General Utility Worker Oncology 06/29/20 Vikram Gomez MD [address] [place], [place] [id number] Referring General Surgery 08/20/20 Vikram Gomez MD [address] [place] [address] Home Care Provider General Surgery 08/20/20 Daniela Chan DO [address] [place], [place] [id number] Primary Staff Physician Cardiology 11/19/21 Lucas Pastor, RN [address] [place] [address] Adding Machine Operator Family Medicine 04/23/22 Cigarette Book Maker Relationship Specialty Start Date End Date Tala Negron MD [address] [place] [address] PCP - General Family Medicine 01/26/17 J Luis Cid Physician Oncology 01/16/17 Indu Lipscomb (Rn), RN [address] [place] [address] Specialty General Utility Worker Hematology/Oncology 01/16/17 No, Referral Referring 03/29/19 Howard Cody MD [address] [place] [address] Primary Staff Physician Cardiology 09/07/18 Estefani Bryant MD, [address] [place], [place] [id number] Physician Radiation Oncology 02/17/20 Kami Toure, RN Specialty General Utility Worker Oncology 06/29/20 Vikram Gomez MD [address] [place], [place] 3823795 Referring General Surgery 08/20/20 Vikram Gomez MD [address] [place], [place] 2536795 Home Care Provider General Surgery 08/20/20 Daniela Chan DO [address] [place], [place] 9800295 Primary Staff Physician Cardiology 11/19/21 Lucas Pastor, DEE [address] [place], [place] [phone] Adding Machine Operator Family Medicine 04/23/22 Cigarette Book Maker Relationship Specialty Start Date End Date Tala Negron MD [address] [place], [place] [id number] PCP - General Family Medicine 01/26/17 J Luis Cid Physician Oncology 01/16/17 Indu Lipscomb (Rn), RN [address] [place], [place] 3585595 Specialty General Utility Worker Hematology/Oncology 01/16/17 No, Referral Referring 03/29/19 Howard Cody MD [address] [place], [place] 6345695 Primary Staff Physician Cardiology 09/07/18 Estefani Bryant MD, [address] [place], [place] [id number] Physician Radiation Oncology 02/17/20 Kami Toure, RN Specialty General Utility Worker Oncology 06/29/20 Vikram Gomez MD [address] [place], [place] 7386195 Referring General Surgery 08/20/20 Vikram Gomez MD [address] [place], [place] 6974195 Home Care Provider General Surgery 08/20/20 Daniela Chan DO [address] [place], [place] 6089795 Primary Staff Physician Cardiology 11/19/21 Lucas Pastor, DEE [address] [place], [place] [id number] Adding Machine Operator Family Medicine 04/23/22 Cigarette Book Maker Relationship Specialty Start Date End Date Tala Negron MD [address] [place], [place] [id number] PCP - General Family Medicine 01/26/17 J Luis Cid Physician Oncology 01/16/17 Indu Lipscomb (Rn), RN [address] [place], [place] 7094495 Specialty General Utility Worker Hematology/Oncology 01/16/17 No, Referral Referring 03/29/19 Howard Cody MD [address] [place], [place] 5696695 Primary Staff Physician Cardiology 09/07/18 Estefani Bryant MD, [address] [place], [place] 87981691 Physician Radiation Oncology 02/17/20 Kami Toure, RN Specialty General Utility Worker Oncology 06/29/20 Vikram Gomez MD [address] [place] [address] Referring General Surgery 08/20/20 Vikram Gomez MD [address] [place], [place] 4937695 Home Care Provider General Surgery 08/20/20 Daniela Chan DO [address] [place], [place] 6221795 Primary Staff Physician Cardiology 11/19/21 Lucas Pastor, RN [address] [place], [place] [phone] Adding Machine Operator Family Medicine 04/23/22 Cigarette Book Maker Relationship Specialty Start Date End Date Tala Negron MD [address] [place], [place] [id number] PCP - General Family Medicine 01/26/17 J Luis Cid Physician Oncology 01/16/17 DeisiIndu li (Rn), RN [address] [place], [place] 9707495 Specialty General Utility Worker Hematology/Oncology 01/16/17 No, Referral Referring 03/29/19 Howard Cody MD [address] [place], [place] 0984395 Primary Staff Physician Cardiology 09/07/18 Estefani Bryant MD, MD [address] [place] [place], [place] 804741 Physician Radiation Oncology 02/17/20 Kami Toure, DEE Specialty General Utility Worker Oncology 06/29/20 Vikram Gomez MD [address] [place] [address] Referring General Surgery 08/20/20 Vikram Gomez MD [address] [place] [address] Home Care Provider General Surgery 08/20/20 Daniela Chan DO [address] [facility] [place], [place] 7127495 Primary Staff Physician Cardiology 11/19/21 Lucas Pastor, DEE [address] [place], [place] [phone] Adding Machine Operator Family Medicine 04/23/22 Cigarette Book Maker Relationship Specialty Start Date End Date Tala Negron MD [address] [place], [place] [id number] PCP - General Family Medicine 01/26/17 J Luis Cid Physician Oncology 01/16/17 Indu Lipscomb (Rn), RN [address] [place], [place] 3660195 Specialty General Utility Worker Hematology/Oncology 01/16/17 No, Referral Referring 03/29/19 Howard Cody MD [address] [place] [address] Primary Staff Physician Cardiology 09/07/18 Estefani Bryant MD, MD [address] [place], [place] 163331 Physician Radiation Oncology 02/17/20 Kami Toure RN Specialty General Utility Worker Oncology 06/29/20 Vikram Gomez MD [address] [place], [place] 1403695 Referring General Surgery 08/20/20 Vikram Gomez MD [address] [place] [address] Home Care Provider General Surgery 08/20/20 Daniela Chan DO [address] [place] [address] Primary Staff Physician Cardiology 11/19/21 Lucas Pastor, RN [address] [place] [address] Adding Machine Operator Family Medicine 04/23/22 Cigarette Book Maker Relationship Specialty Start Date End Date Tala Negron MD [address] [place], [place] [id number] PCP - General Family Medicine 01/26/17 J Luis Cid Physician Oncology 01/16/17 Indu Lipscomb (Rn), RN [address] [place] [address] Specialty General Utility Worker Hematology/Oncology 01/16/17 No, Referral Referring 03/29/19 Howard Cody MD [address] [place] [address] Primary Staff Physician Cardiology 09/07/18 Estefani Bryant MD, MD [address] [place], [place] 12469691 Physician Radiation Oncology 02/17/20 Kami Toure RN Specialty General Utility Worker Oncology 06/29/20 Vikram Gomez MD [address] [place] [address] Referring General Surgery 08/20/20 Vikram Gomez MD [address] [place] [address] Home Care Provider General Surgery 08/20/20 Daniela Chan DO [address] [place], [place] 8275495 Primary Staff Physician Cardiology 11/19/21 Lucas Pastor, RN [address] [place] [address] Adding Machine Operator Family Medicine 04/23/22 Cigarette Book Maker Relationship Specialty Start Date End Date Tala Negron MD [address] [place], [place] [id number] PCP - General Family Medicine 01/26/17 J Luis Cid Physician Oncology 01/16/17 Indu Lipscomb (Rn), RN [address] [place] [address] Specialty General Utility Worker Hematology/Oncology 01/16/17 No, Referral Referring 03/29/19 Howard Cody MD [address] [place], [place] [id number] Primary Staff Physician Cardiology 09/07/18 Estefani Bryant MD, MD [address], [place] 59618691 Physician Radiation Oncology 02/17/20 Kami Toure RN Specialty General Utility Worker Oncology 06/29/20 Vikram Gomez MD [address] [place] [address] Referring General Surgery 08/20/20 Vikram Gomez MD [address] [place] [address] Home Care Provider General Surgery 08/20/20 Daniela Chan DO [address] [place] [id number] Primary Staff Physician Cardiology 11/19/21 Lucas Pastor, RN [address] [place] [address] Adding Machine Operator Family Medicine 04/23/22 Cigarette Book Maker Relationship Specialty Start Date End Date Tala Negron MD [address] [place] [address] PCP - General Family Medicine 01/26/17 J Luis Cid Physician Oncology 01/16/17 Indu Lipscomb (Rn), RN [address] [place] [id number] Specialty General Utility Worker Hematology/Oncology 01/16/17 No, Referral Referring 03/29/19 Howard Cody MD [address] [place] [address] Primary Staff Physician Cardiology 09/07/18 Estefani Bryant MD, MD [address] [place] [address] Physician Radiation Oncology 02/17/20 Kami Toure RN Specialty General Utility Worker Oncology 06/29/20 Vikram Gomez MD [address] [place] [id number] Referring General Surgery 08/20/20 Vikram Gomez MD [address] [place] [address] Home Care Provider General Surgery 08/20/20 Daniela Chan DO [address] [place] [id number] Primary Staff Physician Cardiology 11/19/21 Lucas Pastor, RN [address] [place], [place] [phone] Adding Machine Operator Family Medicine 04/23/22 Cigarette Book Maker Relationship Specialty Start Date End Date Tala Negron MD [address] [place], [place] [id number] PCP - General Family Medicine 01/26/17 J Luis Cid Physician Oncology 01/16/17 DeisiIndu li (Rn), RN [address] [place] [address] Specialty General Utility Worker Hematology/Oncology 01/16/17 No, Referral Referring 03/29/19 Howard Cody MD [address] [place], [place] 2723995 Primary Staff Physician Cardiology 09/07/18 Estefani Bryant MD, MD [address] [place], [place] 22264691 Physician Radiation Oncology 02/17/20 Kami Toure RN Specialty General Utility Worker Oncology 06/29/20 Vikram Gomez MD [address] [place] [address] Referring General Surgery 08/20/20 Vikram Gomez MD [address] [place] [address] Home Care Provider General Surgery 08/20/20 Daniela Chan DO [address] [place], [place] 9783195 Primary Staff Physician Cardiology 11/19/21 Lucas Pastor, DEE [address] [place] [address] Adding Machine Operator Family Medicine 04/23/22 Cigarette Book Maker Relationship Specialty Start Date End Date Tala Negron MD [address] [place], [place] 517141 PCP - General Family Medicine 01/26/17 J Luis Cid Physician Oncology 01/16/17 Indu Lipscomb (Rn), RN [address] [place], [place] 2464695 Specialty General Utility Worker Hematology/Oncology 01/16/17 No, Referral Referring 03/29/19 Howard Cody MD [address] [place], [place] 3133495 Primary Staff Physician Cardiology 09/07/18 Estefani Bryant MD, MD [address] [place], [place] 36956691 Physician Radiation Oncology 02/17/20 Kami Toure RN Specialty General Utility Worker Oncology 06/29/20 Vikram Gomez MD [address] [place], [place] 2806895 Referring General Surgery 08/20/20 Vikram Gomez MD [address] [place], [place] 2642495 Home Care Provider General Surgery 08/20/20 Daniela Chan DO [address] [place] [address] Primary Staff Physician Cardiology 11/19/21 Lucas Pastor RN [address] [place] [address] Adding Machine Operator Family Medicine 04/23/22 Cigarette Book Maker Relationship Specialty Start Date End Date Tala Negron MD [address] [place], [place] [id number] PCP - General Family Medicine 01/26/17 J Luis Cid Physician Oncology 01/16/17 Indu Lipscomb (Rn), RN [address] [place], [place] 3398495 Specialty General Utility Worker Hematology/Oncology 01/16/17 No, Referral Referring 03/29/19 Howard Cody MD [address] [place], [place] 2647195 Primary Staff Physician Cardiology 09/07/18 Estefani Bryant MD, [address] [place], [place] 88410691 Physician Radiation Oncology 02/17/20 Kami Toure RN Specialty General Utility Worker Oncology 06/29/20 Vikram Gomez MD [address] [place], [place] 6374895 Referring General Surgery 08/20/20 Vikram Gomez MD [address] [place], [place] 2737795 Home Care Provider General Surgery 08/20/20 Daniela Chan DO [address] [place], [place] 5916295 Primary Staff Physician Cardiology 11/19/21 Lucas Pastor, RN [address] [place], [place] [phone] Adding Machine Operator Family Medicine 04/23/22 Cigarette Book Maker Relationship Specialty Start Date End Date Tala Negron MD [address] [place], [place] 121701 PCP - General Family Medicine 01/26/17 J Luis Cid Physician Oncology 01/16/17 Indu Lipscomb (Rn), RN [address] [place], [place] 5592995 Specialty General Utility Worker Hematology/Oncology 01/16/17 No, Referral Referring 03/29/19 Howard Cody MD [address] [place], [place] 9524195 Primary Staff Physician Cardiology 09/07/18 Estefani Bryant MD, [address] [place], [place] 92562691 Physician Radiation Oncology 02/17/20 Kami Toure RN Specialty General Utility Worker Oncology 06/29/20 Vikram Gomez MD [address] [place] [place], [place] 1671295 Referring General Surgery 08/20/20 Vikram Gomez MD [address] [place] [place], [place] 7629595 Home Care Provider General Surgery 08/20/20 Daniela Chan DO [address] [place] 2015095 Primary Staff Physician Cardiology 11/19/21 Lucas Pastor, DEE [address] [place], [place] [phone] Adding Machine Operator Family Medicine 04/23/22 Cigarette Book Maker Relationship Specialty Start Date End Date Tala Negron MD [address] [place], [place] 267251 PCP - General Family Medicine 01/26/17 J Luis Cid Physician Oncology 01/16/17 Indu Lipscomb (Rn), RN [address] [facility] [place], [place] 6641795 Specialty General Utility Worker Hematology/Oncology 01/16/17 No, Referral Referring 03/29/19 Howard Cody MD [address] [place], [place] 4670295 Primary Staff Physician Cardiology 09/07/18 Estefani Bryant MD, MD [address], [place] 384301 Physician Radiation Oncology 02/17/20 Kami Toure RN Specialty General Utility Worker Oncology 06/29/20 Vikram Gomez MD [address] [place], [place] 8419695 Referring General Surgery 08/20/20 Vikram Gomez MD [address] [place], [place] 6681395 Home Care Provider General Surgery 08/20/20 Daniela Chan DO [address] [place] [address] Primary Staff Physician Cardiology 11/19/21 Lucas Pastor, DEE [address] [place], [place] 0495931 Adding Machine Operator Family Medicine 04/23/22 Cigarette Book Maker Relationship Specialty Start Date End Date Tala Negron MD [address] [place], [place] 880601 PCP - General Family Medicine 01/26/17 J Luis Cid Physician Oncology 01/16/17 Indu Lipscomb (Rn), RN [address] [place], [place] 0164295 Specialty General Utility Worker Hematology/Oncology 01/16/17 No, Referral Referring 03/29/19 Howard Cody MD [address] [place], [place] 0611095 Primary Staff Physician Cardiology 09/07/18 Estefani Bryant MD, MD [address] [place] [address] Physician Radiation Oncology 02/17/20 Kami Toure RN Specialty General Utility Worker Oncology 06/29/20 Vikram Gomez MD [address] [place] [address] Referring General Surgery 08/20/20 Vikram Gomez MD [address] [place], [place] 2799895 Home Care Provider General Surgery 08/20/20 Daniela Chan DO [address] [place], [place] 5398495 Primary Staff Physician Cardiology 11/19/21 Lucas Pastor, RN [address] [place] [address] Adding Machine Operator Family Medicine 04/23/22 Cigarette Book Maker Relationship Specialty Start Date End Date Tala Negron MD [address] [place], [place] [id number] PCP - General Family Medicine 01/26/17 J Luis Cid Physician Oncology 01/16/17 DeisiIndu li (Rn), RN [address] [facility] [place], [place] 6870495 Specialty General Utility Worker Hematology/Oncology 01/16/17 No, Referral Referring 03/29/19 Howard Cody MD [address] [place], [place] 4545695 Primary Staff Physician Cardiology 09/07/18 Estefani Bryant MD, MD [address] [place], [place] 26764691 Physician Radiation Oncology 02/17/20 Kami Toure RN Specialty General Utility Worker Oncology 06/29/20 Vikram Gomez MD [address] [place], [place] 3695895 Referring General Surgery 08/20/20 Vikram Gomez MD [address] [place], [place] 6480795 Home Care Provider General Surgery 08/20/20 Daniela Chan DO [address] [facility] [place], [place] 9227895 Primary Staff Physician Cardiology 11/19/21 Lucas aPstor, RN [address] [place], [place] [phone] Adding Machine Operator Family Medicine 04/23/22 Cigarette Book Maker Relationship Specialty Start Date End Date Tala Negron MD [address] [place] [address] [id number] PCP - General Family Medicine 01/26/17 J Luis Cid Physician Oncology 01/16/17 DeisiIndu li (Rn), RN [address] [place] [address] Specialty General Utility Worker Hematology/Oncology 01/16/17 No, Referral Referring 03/29/19 Howard Cody MD [address] [place], [place] 2121395 Primary Staff Physician Cardiology 09/07/18 Estefani Bryant MD, MD [address] [place], [place] 21206691 Physician Radiation Oncology 02/17/20 Kami Toure RN Specialty General Utility Worker Oncology 06/29/20 [place] [address] [place] [address] 5357895 Referring General Surgery 08/20/20 Vikram Gomez MD [address] [place] [address] 0732395 Home Care Provider General Surgery 08/20/20 [place] [address] [place] [address] Primary Staff Physician Cardiology 11/19/21 Lucas Pastor, DEE [address] [place], [place] [phone] Adding Machine Operator Family Medicine 04/23/22 Cigarette Book Maker Relationship Specialty Start Date End Date Tala Negron MD [address] [place], [place] [id number] PCP - General Family Medicine 01/26/17 J Luis Cid Physician Oncology 01/16/17 Indu Lipscomb (Rn), RN [address] [place] [address] Specialty General Utility Worker Hematology/Oncology 01/16/17 No, Referral Referring 03/29/19 Howard Cody MD [address] [place], [place] 6455495 Primary Staff Physician Cardiology 09/07/18 Estefani Bryant MD, [address] [place], [place] 94910691 Physician Radiation Oncology 02/17/20 Kami Toure, DEE Specialty General Utility Worker Oncology 06/29/20 Vikram Gomez MD [address] [place], [place] 7950995 Referring General Surgery 08/20/20 Vikram Gomez MD [address] [place], [place] 5848995 Home Care Provider General Surgery 08/20/20 Daniela Chan DO [address] [place] [address] Primary Staff Physician Cardiology 11/19/21 Lucas Pastor, RN [address] [place] [address] Adding Machine Operator Family Medicine 04/23/22 Cigarette Book Maker Relationship Specialty Start Date End Date Tala Negron MD [address] [place], [place] 363581 PCP - General Family Medicine 01/26/17 J Luis Cid Physician Oncology 01/16/17 Indu Lipscomb (Rn), RN [address] [place], [place] 1117495 Specialty General Utility Worker Hematology/Oncology 01/16/17 No, Referral Referring 03/29/19 Howard Cody MD [address] [place], [place] 1680995 Primary Staff Physician Cardiology 09/07/18 Estefani Bryant MD, MD [address] [place], [place] [id number] Physician Radiation Oncology 02/17/20 Kami Toure, DEE Specialty General Utility Worker Oncology 06/29/20 Vikram Gomez MD [address] [place], [place] 1881895 Referring General Surgery 08/20/20 [place] [address] [place] [address] Home Care Provider General Surgery 08/20/20 Daniela Chan DO [address] [place], [place] [id number] Primary Staff Physician Cardiology 11/19/21 Lucas Pastor, DEE [address] [place], [place] [phone] Adding Machine Operator Family Medicine 04/23/22 Cigarette Book Maker Relationship Specialty [place] [address] [place] [address] [id number] PCP - General Family Medicine 01/26/17 J Luis Cid Physician Oncology 01/16/17 Indu Lipscomb (Rn), RN [address] [place], [place] 8010195 Specialty General Utility Worker Hematology/Oncology 01/16/17 No, Referral Referring 03/29/19 Howard Cody MD [address] [place], [place] 5255995 Primary Staff Physician Cardiology 09/07/18 Estefani Bryant MD, MD [address] [place], [place] 73887691 Physician Radiation Oncology 02/17/20 Kami Toure, DEE Specialty General Utility Worker Oncology 06/29/20 Vikram Gomez MD [address] [place] [id number] Referring General Surgery 08/20/20 [place] [address] [place], [place] 4907395 Home Care Provider General Surgery 08/20/20 Daniela Chan DO [address] [place] [id number] Primary Staff Physician Cardiology 11/19/21 Lucas Pastor, DEE [address] [place] [address] Adding Machine Operator Family Medicine 04/23/22 Cigarette Book Maker Relationship Specialty [place] [address] [place] [address] [id number] PCP - General Family Medicine 01/26/17 J Luis Cid Physician Oncology 01/16/17 Indu Lipscomb (Rn), RN [address] [place], [place] 1032795 Specialty General Utility Worker Hematology/Oncology 01/16/17 No, Referral Referring 03/29/19 Howard Cody MD [address] [place], [place] 1235995 Primary Staff Physician Cardiology 09/07/18 Estefani Bryant MD, MD [address] [place], [place] 62789691 Physician Radiation Oncology 02/17/20 Kami Toure, RN Specialty General Utility Worker Oncology 06/29/20 Vikram Gomez MD [address] [place], [place] [phone] Referring General Surgery 08/20/20 Vikram Gomez MD [address] [place], [place] 4585495 Home Care Provider General Surgery 08/20/20 Daniela Chan DO [address] [place], [place] 8065395 Primary Staff Physician Cardiology 11/19/21 Lucas Pastor, RN [address] [place] [address] Adding Machine Operator Family Medicine 04/23/22 Cigarette Book Maker Relationship Specialty Start Date End Date Tala Negron MD [address] [place], [place] [id number] PCP - General Family Medicine 01/26/17 J Luis Cid Physician Oncology 01/16/17 DeisiIndu li (Rn), RN [address] [place], [place] [id number] Specialty General Utility Worker Hematology/Oncology 01/16/17 No, Referral Referring 03/29/19 Howard Cody MD [address], [place] [id number] Primary Staff Physician Cardiology 09/07/18 Estefani Bryant MDMD [address] [place], [place] 849181 Physician Radiation Oncology 02/17/20 Kami Toure, RN Specialty General Utility Worker Oncology 06/29/20 Vikram Gomez MD [address] [place], [place] [id number] Referring General Surgery 08/20/20 Vikram Gomez MD [address] [place], [place] 9280495 Home Care Provider General Surgery 08/20/20 Daniela Chan DO [address] [place], [place] [id number] Primary Staff Physician Cardiology 11/19/21 Lucas Pastor, DEE [address] [place], [place] [phone] Adding Machine Operator Family Medicine 04/23/22 Cigarette Book Maker Relationship Specialty [place] [address] [place] [address] [id number] PCP - General Family Medicine 01/26/17 J Luis Cid Physician Oncology 01/16/17 Indu Lipscomb (Rn), RN [address], [place] [id number] Specialty General Utility Worker Hematology/Oncology 01/16/17 No, Referral Referring 03/29/19 Howard Cody MD [address] [place], [place] [id number] Primary Staff Physician Cardiology 09/07/18 Estefani Bryant MD, [address] [place], [place] [id number] Physician Radiation Oncology 02/17/20 Kami Toure RN Specialty General Utility Worker Oncology 06/29/20 Vikram Gomez MD [address] [place], [place] [id number] Referring General Surgery 08/20/20 Vikram Gomez MD [address] [place], [place] 2637295 Home Care Provider General Surgery 08/20/20 Daniela Chna DO [address] [place], [place] 7239595 Primary Staff Physician Cardiology 11/19/21 Lucas Pastor, DEE [address] [place], [place] [phone] Adding Machine Operator Family Medicine 04/23/22 Cigarette Book Maker Relationship Specialty Start Date End Date Tala Negron MD [address] [place], [place] [id number] PCP - General Family Medicine 01/26/17 J Luis Cid Physician Oncology 01/16/17 Indu Lipscomb (Rn), RN [address] [place], [place] [id number] Specialty General Utility Worker Hematology/Oncology 01/16/17 No, Referral Referring 03/29/19 Howard Cody MD [address], [place] 1111795 Primary Staff Physician Cardiology 09/07/18 Estefani Bryant MD, MD [address] [place], [place] [phone] Physician Radiation Oncology 02/17/20 Kami Toure RN Specialty General Utility Worker Oncology 06/29/20 Vikram Gomez MD [address] [place], [place] [id number] Referring General Surgery 08/20/20 Vikram Gomez MD [address] [place], [place] 5775395 Home Care Provider General Surgery 08/20/20 Daniela Chan DO [address], [place] [id number] Primary Staff Physician Cardiology 11/19/21 Lucas Pastor, RN [address] [place], [place] [phone] Adding Machine Operator Family Medicine 04/23/22 Cigarette Book Maker Relationship Specialty [place] [address] [place] [address] [id number] PCP - General Family Medicine 01/26/17 J Luis Cid Physician Oncology 01/16/17 DeisiIndu li (Rn), RN [address] [place], [place] 6605395 Specialty General Utility Worker Hematology/Oncology 01/16/17 No, Referral Referring 03/29/19 Howard Cody MD [address] [place], [place] 9306095 Primary Staff Physician Cardiology 09/07/18 Estefani Bryant MD, [address] [place], [place] [phone] Physician Radiation Oncology 02/17/20 Kami Toure RN Specialty General Utility Worker Oncology 06/29/20 Vikram Gomez MD [address] [place] [address] Referring General Surgery 08/20/20 Vikram Gomez MD [address] [place], [place] [phone] Home Care Provider General Surgery 08/20/20 Daniela Chan DO [address] [place], [place] [id number] Primary Staff Physician Cardiology 11/19/21 Lucas Pastor, DEE [address] [place] [address] [phone] Adding Machine Operator Family Medicine 04/23/22 Cigarette Book Maker Relationship Specialty [place] [address] [place] [address] [id number] PCP - General Family Medicine 01/26/17 J Luis Cid Physician Oncology 01/16/17 Indu Lipscomb (Rn), RN [address] [place] [address] Specialty General Utility Worker Hematology/Oncology 01/16/17 No, Referral Referring 03/29/19 Howard Cody MD [address] [place] [address] Primary Staff Physician Cardiology 09/07/18 Estefani Bryant MD, [address] [place] [place] [address] Physician Radiation Oncology 02/17/20 Kami Toure RN Specialty General Utility Worker Oncology 06/29/20 Vikram Gomez MD [address] [place], [place] 4807695 Referring General Surgery 08/20/20 Vikram Gomez MD [address] [place], [place] 5308995 Home Care Provider General Surgery 08/20/20 Daniela Chan DO [address] [place], [place] 1525295 Primary Staff Physician Cardiology 11/19/21 Lucas Pastor, RN [address] [place], [place] [phone] Adding Machine Operator Family Medicine 04/23/22 Cigarette Book Maker Relationship Specialty Start Date End Date Tala Negron MD [address] [place], [place] [phone] PCP - General Family Medicine 01/26/17 J Luis Cid Physician Oncology 01/16/17 Indu Lipscomb (Rn), RN [address] [place] [address] Specialty General Utility Worker Hematology/Oncology 01/16/17 No, Referral Referring 03/29/19 Howard Cody MD [address] [place] [address] Primary Staff Physician Cardiology 09/07/18 Estefani Bryant MD, MD [address] [place], [place] [id number] Physician Radiation Oncology 02/17/20 Kami Toure, RN Specialty General Utility Worker Oncology 06/29/20 Vikram Gomez MD [address] [place], [place] [phone] Referring General Surgery 08/20/20 Vikram Gomez MD [address] [place], [place] 3971195 Home Care Provider General Surgery 08/20/20 Daniela Chan DO [address] [place], [place] [id number] Primary Staff Physician Cardiology 11/19/21 Lucas Pastor, RN [address] [place], [place] [phone] Adding Machine Operator Family Medicine 04/23/22 Cigarette Book Maker Relationship Specialty Start Date End Date Tala Negron MD [address] [place], [place] [id number] PCP - General Family Medicine 01/26/17 J Luis Cid Physician Oncology 01/16/17 DeisiIndu li (Rn), RN [address] [place], [place] [phone] Specialty General Utility Worker Hematology/Oncology 01/16/17 No, Referral Referring 03/29/19 Howard Cody MD [address] [facility] [place], [place] [phone] Primary Staff Physician Cardiology 09/07/18 Estefani Bryant MD, MD [address] [place], [place] [phone] Physician Radiation Oncology 02/17/20 Kami Toure, RN Specialty General Utility Worker Oncology 06/29/20 Vikram Gomez MD [address] [place], [place] 6828895 Referring General Surgery 08/20/20 Vikram Gomez MD [address] [place], [place] 3787595 Home Care Provider General Surgery 08/20/20 Daniela Chan DO [address] [place], [place] [phone] Primary Staff Physician Cardiology 11/19/21 Lucas Pastor, DEE [address] [place] [address] Adding Machine Operator Family Medicine 04/23/22 Cigarette Book Maker Relationship Specialty Start Date End Date aTla Negron MD [address] [place], [place] [id number] PCP - General Family Medicine 01/26/17 J Luis Cid Physician Oncology 01/16/17 DeisiIndu li (Rn), RN [address] [place] [id number] Specialty General Utility Worker Hematology/Oncology 01/16/17 No, Referral Referring 03/29/19 Howard Cody MD [address] [place] [address] Primary Staff Physician Cardiology 09/07/18 Estefani Bryant MD, MD [address] [place], [place] [id number] Physician Radiation Oncology 02/17/20 Kami Toure, RN Specialty General Utility Worker Oncology 06/29/20 Vikram Gomez MD [address] [place] [address] Referring General Surgery 08/20/20 Vikram Gomez MD [address] [place] [address] Home Care Provider General Surgery 08/20/20 Daniela Chan DO [address] [place] [address] Primary Staff Physician Cardiology 11/19/21 Lucas Pastor, RN [address] [place], [place] [phone] Adding Machine Operator Family Medicine 04/23/22 Cigarette Book Maker Relationship Specialty Start Date End Date Tala Negron MD [address] [place], [place] [phone] PCP - General Family Medicine 01/26/17 J Luis Cid Physician Oncology 01/16/17 Indu Lipscomb (Rn), RN [address] [place] [address] Specialty General Utility Worker Hematology/Oncology 01/16/17 No, Referral Referring 03/29/19 Howard Cody MD [address] [place] [address] Primary Staff Physician Cardiology 09/07/18 Estefani Bryant MD, MD [address] [place], [place] [phone] Physician Radiation Oncology 02/17/20 Kami Toure, RN Specialty General Utility Worker Oncology 06/29/20 Vikram Gomez MD [address] [place], [place] 6247295 Referring General Surgery 08/20/20 Vikram Gomez MD [address] [place], [place] 7231795 Home Care Provider General Surgery 08/20/20 Daniela Chan DO [address] [place] [address] Primary Staff Physician Cardiology 11/19/21 Lucas Pastor, RN [address] [place], [place] [id number] Adding Machine Operator Family Medicine 04/23/22 Cigarette Book Maker Relationship Specialty Start Date End Date Tala Negron MD [address] [place], [place] [id number] PCP - General Family Medicine 01/26/17 J Luis Cid Physician Oncology 01/16/17 Indu Lipscomb (Rn), RN [address] [place] [address] Specialty General Utility Worker Hematology/Oncology 01/16/17 No, Referral Referring 03/29/19 Howard Cody MD [address] [facility] [place], [place] 9232295 Primary Staff Physician Cardiology 09/07/18 Estefani Bryant MD, MD [address] [place], [place] [phone] Physician Radiation Oncology 02/17/20 Kami Toure RN Specialty General Utility Worker Oncology 06/29/20 Vikram Gomez MD [address] [place] [address] Referring General Surgery 08/20/20 Vikram Gomez MD [address] [place] [address] Home Care Provider General Surgery 08/20/20 Daniela Chan DO [address] [place] [address] Primary Staff Physician Cardiology 11/19/21 Lucas Pastor, RN [address] [place] [address] Adding Machine Operator Family Medicine 04/23/22 Cigarette Book Maker Relationship Specialty Start Date End Date Tala Negron MD [address] [place], [place] [id number] PCP - General Family Medicine 01/26/17 J Luis Cid Physician Oncology 01/16/17 Indu Lipscomb (Rn), RN [address] [place] [phone] Specialty General Utility Worker Hematology/Oncology 01/16/17 No, Referral Referring 03/29/19 Howard Cody MD [address] [place] [id number] Primary Staff Physician Cardiology 09/07/18 Estefani Bryant MD, [address] [place] [address] Physician Radiation Oncology 02/17/20 Kami Toure RN Specialty General Utility Worker Oncology 06/29/20 Vikram Gomez MD [address] [place] [id number] Referring General Surgery 08/20/20 Vikram Gomez MD [address] [place] [address] Home Care Provider General Surgery 08/20/20 Daniela Chan DO [address] [place] [address] Primary Staff Physician Cardiology 11/19/21 Lucas Pastor RN [address] [place], [place] [phone] Adding Machine Operator Family Medicine 04/23/22 Cigarette Book Maker Relationship Specialty Start Date End Date Tala Negron MD [address] [place], [place] 590691 PCP - General Family Medicine 01/26/17 J Luis Cid Physician Oncology 01/16/17 DeisiIndu li (Rn), RN [address] [place], [place] [id number] Specialty General Utility Worker Hematology/Oncology 01/16/17 No, Referral Referring 03/29/19 Howard Cody MD [address] [place], [place] 1155995 Primary Staff Physician Cardiology 09/07/18 Estefani Bryant MD, MD [address], [place] [id number] Physician Radiation Oncology 02/17/20 Kami Toure RN Specialty General Utility Worker Oncology 06/29/20 Vikram Gomez MD [address] [place], [place] 2352195 Referring General Surgery 08/20/20 Vikram Gomez MD [address] [place], [place] 4088095 Home Care Provider General Surgery 08/20/20 Daniela Chan DO [address] [place] [address] Primary Staff Physician Cardiology 11/19/21 Lucas Pastor, DEE [address] [place] [address] Adding Machine Operator Family Medicine 04/23/22 Cigarette Book Maker Relationship Specialty Start Date End Date Tala Negron MD [address] [place], [place] 661871 PCP - General Family Medicine 01/26/17 J Luis Cid Physician Oncology 01/16/17 Indu Lipscomb (Rn), RN [address] [place], [place] [phone] Specialty General Utility Worker Hematology/Oncology 01/16/17 No, Referral Referring 03/29/19 Howard Cody MD [address] [place] [address] Primary Staff Physician Cardiology 09/07/18 Estefani Bryant MD, MD [address], [place] [phone] Physician Radiation Oncology 02/17/20 Kami Toure RN Specialty General Utility Worker Oncology 06/29/20 Vikram Gomez MD [address] [place] [address] Referring General Surgery 08/20/20 Vikram Gomez MD [address] [place] [address] Home Care Provider General Surgery 08/20/20 Daniela Chan DO [address] [place] [address] Primary Staff Physician Cardiology 11/19/21 Lucas Pastor, DEE [address] [place] [address] Adding Machine Operator Family Medicine 04/23/22 Cigarette Book Maker Relationship Specialty Start Date End Date Tala Negron MD [address] [place], [place] [id number] PCP - General Family Medicine 01/26/17 J Luis Cid Physician Oncology 01/16/17 Indu Lipscomb (Rn), RN [address] [place], [place] [phone] Specialty General Utility Worker Hematology/Oncology 01/16/17 No, Referral Referring 03/29/19 Howard Cody MD [address] [place], [place] 1557095 Primary Staff Physician Cardiology 09/07/18 Estefani Bryant MD, MD [address] [place], [place] [phone] Physician Radiation Oncology 02/17/20 Kami Toure RN Specialty General Utility Worker Oncology 06/29/20 Vikram Gomez MD [address] [place] [address] Referring General Surgery 08/20/20 Vikram Gomez MD [address] [place] [address] Home Care Provider General Surgery 08/20/20 Daniela Chan DO [address] [place], [place] [phone] Primary Staff Physician Cardiology 11/19/21 Lucas Pastor, RN [address] [place], [place] [phone] Adding Machine Operator Family Medicine 04/23/22 Cigarette Book Maker Relationship Specialty Start Date End Date Tala Negron MD [address] [place], [place] 070811 PCP - General Family Medicine 01/26/17 J Luis Cid Physician Oncology 01/16/17 Indu Lipscomb (Rn), RN [address] [place], [place] [id number] Specialty General Utility Worker Hematology/Oncology 01/16/17 No, Referral Referring 03/29/19 Howard Cody MD [address] [place], [place] [id number] Primary Staff Physician Cardiology 09/07/18 Estefani Bryant MD, MD [address] [place], [place] [phone] Physician Radiation Oncology 02/17/20 Kami Toure RN Specialty General Utility Worker Oncology 06/29/20 Vikram Gomez MD [address] [place], [place] 0844895 Referring General Surgery 08/20/20 Vikram Gomez MD [address] [place], [place] 6122795 Home Care Provider General Surgery 08/20/20 Daniela Chan DO [address] [place], [place] [id number] Primary Staff Physician Cardiology 11/19/21 Lucas Pastor, DEE [address] [place], [place] [phone] Adding Machine Operator Family Medicine 04/23/22 Reason for Visit (unrecogniz ed section and content) Specialty Diagnoses / Procedures Referred By Contac t Referred To Contact Physical Therapy / PHYSICAL THERAPY Diagnoses Fall in home, initial encounter; Left upper arm pain; Unsteady gait when walking, order in Review Tab Procedures NEW RS PT GAIT TestTracy jean [address] [place] [address] Anselmo Prather, PT [address] [place] [address] Referral ID Status Reason Start Date Expiration Date V isits Requested Visits Authorized [id number] Authorized 06/22/2022 06/21/2023 99 99 Reason Onset Date Comments Community Monitoring Outreach 10/14/2021 In Sight Escalation Reason Comments Results Orders Reason Comments Breathing Problem exacerbation of SOB with increased activity Reason Comments Results Reason Onset Date Comments Refill Request 10/26/2021 Reason Comments Appointment need to reschedule 1 140 to different time (1020 and 1040 were available at time of call) as 1140 is during STAMP meeting Reason Comments Follow Up 3 month Reason Comments Patient Question Reason Comments Refill Request Reason Comments Atrial Fibrillation Reason Comments Radiology NM Reason Comments Radiology CT Specialty Diagnoses / Procedures Referred By Contac t Referred To Contact CT IMAGING Diagnoses 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, estrogen receptor positive (HCC) 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) Procedures CT CHEST W IVCON DIAGNOSTIC COMPUTED TOMOGRAPHY THORAX W/CONTRAST Nimisha Aleman APRN.SAWMILL 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 [address] [place] [address] Ct Imaging Referral ID Status Reason Start Date Expiration Date V isits Requested Visits Authorized [id number] Closed Auto-Generate d Referral 11/11/2021 12/11/2022 1 1 Reason Onset Date Comments Insight Escalation 11/25/2021 Insight [facility] questionnaire triggered escalation Reason Comments Follow Up Reason Comments Patient Assistance Reason Comments Medication Assistance Program Pfizer for Ibrance Specialty Diagnoses / Procedures Referred By Contac t Referred To Contact CT IMAGING Diagnoses 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, estrogen receptor positive (HCC) Lung nodules Cough Procedures CT CHEST W IVCON DIAGNOSTIC COMPUTED TOMOGRAPHY THORAX W/CONTRAST Nimisha Aleman, [place].SAWMILL 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 [address] [place] [address] Ct Imaging Referral ID Status Reason Start Date Expiration Date V isits Requested Visits Authorized [id number] Closed Auto-Generate d Referral 11/22/2021 12/22/2022 1 1 Reason Comments Rx Refills Reason Comments Cyst Reason Comments Med Change Request Reason Comments Follow Up 3 month Reason Comments Established Patient Reason Onset Date Comments Community Monitoring Outreach 03/21/2022 CD M Reason Comments F/U 3 Month Reason Comments Established Patient Reason Comments Pfizer Ibrance Application Reason Comments Nodule Follow Up Reason Comments Received Outside Medical Records Reason Onset Date Comments Refill Request 07/10/2022 Reason Comments Lab Orders Reason Comments PT Eval Specialty Diagnoses / Procedures Referred By Contac t Referred To Contact Physical Therapy / PHYSICAL THERAPY Diagnoses Schedule for orthotics Procedures NEW RS PT ORTHOTIC TestTracy jean [address] [place] [place] [address] Anselmo Prather, PT [address] [place] [address] Referral ID Status Reason Start Date Expiration Date V isits Requested Visits Authorized [id number] Authorized 06/22/2022 06/21/2023 99 99 Reason Onset Date Comments Refill Request 08/07/2022 Reason Onset Date Comments Refill Request 08/08/2022 Reason Comments Mohs Reason Comments Insurance Inquiry Reason Comments F/U 3 Month Reason Comments PT Discharge Specialty Diagnoses / Procedures Referred By Contac t Referred To Contact [facility] Diagnoses Fall in home, initial encounter Left upper arm pain Unsteady gait when walking Procedures CONSULT TO PHYSICAL THERAPY PHYSICAL THERAPY EVALUATION HIGH COMPLEX 45 MINS Tala Negron MD [address] [place] [address] [facility] [place] [address] [place] [address] Referral ID Status Reason Start Date Expiration Date Visits Requested Visits Authorized [id number] Authorized PCP Requested Referral Auto-Generate d Referral 08/19/2022 08/19/2023 99 99 Reason Comments Physical Therapy Reason Comments Insurance Authorization Fluorouracil 5% cream Reason Comments CMN- PAP supplies [facility]- 9/1 08/2021 Reason Comments Hyperparathyroidism Follow up Reason Comments Reclast Reason Comments Sleep Apnea [facility] follow up Reason Onset Date Comments Refill Request 12/11/2022 Reason Comments Appointment Reason Comments Erroneous encounter-disregard Reason Comments F/U 3 Month Reason Comments Results Reason Comments Consult Specialty Diagnoses / Procedures Referred By Contac t Referred To Contact Nephrology Diagnoses Stage 3b chronic kidney disease (HCC) Procedures CONSULT TO NEPHROLOGY OFFICE/OUTPATIENT NEW HIGH MDM 60-74 MINUTES LiorlogMelanie sanabria TIN DIPPER.SAWMILL 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 [address] [place] [address] Referral ID Status Reason Start Date Expiration Date V isits Requested Visits Authorized [id number] Closed PCP Requested Referral 02/16/2023 02/16/2024 1 1 Reason Comments Results Mammogram. Needs fol low-up imaging. Reason Comments Valvular Heart Disease Reason Comments Appointment Triluminate (TV Clip )/ TTVR (TRISCEND) Eval Reason Comments Appointment Triluminate (TV Clip )/ TTVR (TRISCEND) Eval sched for 06/04, 06/05 and 06/08. 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) Abnormal radionuclide bone scan Procedures MRI HIP WO/W IVCON RIGHT MRI ANY JT LOWER EXTREM W/O & W/CONTRAST Nimisha Lion, TIN DIPPER.SAWMILL 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 [address] [place] [address] [place] [address] Referral ID Status Reason Start Date Expiration Date V isits Requested Visits Authorized [id number] Closed Auto-Generate d Referral 11/07/2022 12/07/2023 1 1 Reason Comments Radiology US Specialty Diagnoses / Procedures [facility] To [facility] US [facility] Diagnoses Stage 3b chronic kidney disease (HCC) Essential hypertension Chronic diastolic CHF (congestive heart failure) (HCC) Procedures US KIDNEY/BLADDER US RETROPERITONEAL REAL TIME W/[place] [address] [place] [address] [place] [address] Referral ID Status Reason Start Date Expiration Date V isits Requested Visits Authorized [id number] Closed Auto-Generate d Referral 02/25/2023 03/26/2024 1 1 Reason Comments Radiology NM Specialty Diagnoses / Procedures Referred By Contac t Referred To Contact MOLECULAR & FUNCTIONAL IMAGING Diagnoses 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, estrogen receptor positive (HCC) 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) Lung nodules Procedures NM BONE WHOLE BODY BONE &/JOINT IMAGING WHOLE BODY Nimisha Aleman APRN.SAWMILL 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 [address] [place] [address] [facility] [address] [place] [id number] Referral ID Status Reason Start Date Expiration Date V isits Requested Visits Authorized [id number] Closed Auto-Generate d Referral 08/15/2022 09/14/2023 1 1 Reason Comments Radiology NM Reason Comments Full Body Skin Check Reason Comments Patient Update Reason Onset Date Comments Refill Request 05/26/2023 Reason Onset Date Comments Refill Request 05/27/2023 Reason Comments Follow Up Reason Comments Education Of Patient/family Reason Comments Reminder Call Transesophageal Echo 06/08/23 Reason Comments Research irb [id number] Trilumin ate chart review FOR RECORDS PERTAINING TO PATIENTS WHO ARE OR HAVE BEEN ENROLLED IN A CHEMICAL DEPENDENCY/SUBSTANCEABUSE PROGRAM, SOME INFORMATION MAY BE OMITTED. This clinical summary was aggregated from multiple sources. Caution should be exercised in using it in the provision of clinical care. This summary normalizes information from multiple sources, and as a consequence, information in this document may materially change the coding, format and clinical context of patient data. In addition, data may be omitted in some cases. CLINICAL DECISIONS SHOULD BE BASED ON THE PRIMARY CLINICAL RECORDS. [employer] provides no warranty or guarantee of the accuracy or completeness of information in this document.
[2023-07-16] MEDS: Oxymetazoline 0.05% 1 SPRAY SPRAY.BTL 2 SPRAY NASAL (19:34)
--- NOTE | 2023-07-16 19:38 | EDS_ITS ---
HPI HPI - URI History of Present Illness Chief Complaint: Nosebleed Detail of Chief Complaint: Atraumatic right-sided nosebleed. Today. Informant: patient Onset/Context/Timing Current Severity: Moderate Maximum Severity: Moderate Narrative Narrative: 78-year-old female on Eliquis for A-fib. Pending Tricuspid valve surgery. Had a nosebleed a month ago typically does not have nosebleeds. Had a recurrent atraumatic right-sided nosebleed today. Began about 3 hours ago. Prior similar symptoms: Yes Recent Illness/Hospitalization: No ROS ROS ED ROS Narrative Denies recent illness. Review of Systems ROS Unobtainable: Denies due to encephalopathy Constitutional Constitutional ED: Denies chills or fever(s) Eyes Eyes: Denies blurry vision ENT ENT ED: Denies ear pain Cardiovascular Cardiovascular: Denies chest pain Respiratory/Chest Respiratory/Chest: Denies cough or dyspnea Gastrointestinal Gastrointestinal: Denies abdominal pain Genitourinary Genitourinary ED: Denies dysuria or hematuria Musculoskeletal Musculoskeletal: Denies arthralgias Integumentary Denies abscess or Abrasions Psychiatric Psychiatric: Denies anxiety or depression Endocrine Endocrinology: Denies cold intolerance Hematologic/Lymphatic Hematologic/Lymphatic: Reports easy bleeding, easy bruising and other Allergic/Immunologic Allergic/Immunologic ED: Denies mouth swelling, tongue swelling or urticaria PFSH PFSH Medical History A-fib CHF (congestive heart failure) HTN (hypertension) Metastasis from breast cancer Sleep apnea Allergy/AdvReac Type Severity Reaction Status Date / Time anastrozole Allergy Rash Verified 07/16/23 18:38 hydrocodone [From [place]] Allergy Vomiting Verified 07/16/23 18:38 Penicillins Allergy Rash Verified 07/16/23 18:38 Social History household members: none housing: house Smoking Status: Never smoker EXAM Physical Exam Narrative Exam Narrative: 78-year-old female vital signs stable afebrile. Initial blood pressure 138/78. H EENT exam dripping blood from the right naris. Bright red blood. There is blood in the left naris. Blood in posterior pharynx. Lungs clear. Heart A-fib rate of 90. Chest wall nontender. Abdomen soft nontender. Back nontender. Moving all 4 extremities. Nontender no edema. Neurologically she is awake and alert. Const Vital Signs: 07/16/23 18:38 Temperature 99.3 F H Temperature Source Temporal Pulse Rate 90 Respiratory Rate 18 Blood Pressure 138/78 H Blood Pressure Mean 98 Pulse Ox 97 Positive well nourished and well developed; Negative for obese, cachectic or contractures General Appearance ED: well developed and NAD; Negative for cachectic, contractures, cyanotic, diaphoretic or pallor Nutritional Appearance: Negative for cachectic or obese HEENT Reports moist mucous membranes; Denies dry mucous membranes HEENT Narrative: Dripping bright red blood from the right nares. Blood in the posterior oropharynx. normocephalic and atraumatic Mouth ED: No dry mucous membranes Mouth: No dry mucous membranes Throat: posterior oropharynx abnormal; Negative for posterior oropharynx normal Eyes PERRL and EOMs intact bilaterally General Eye ED: Negative for pale conjunctiva, scleral icterus or other Neck no lymphadenopathy, supple, no meningeal signs and no JVD General: Negative for anterior neck swelling or lymphadenopathy Resp normal respiratory effort and clear to auscultation bilaterally Effort and Inspection: Negative for retractions Auscultation: Negative for rales, rhonchi or wheezes Cardio S1 normal heart sound, S2 normal heart sound and no murmurs Rate: regular rate Rhythm: abnormal rhythm GI non-tender, non-distended and no masses Inspection: Negative for abdominal distention Auscultation: normoactive bowel sounds Palpation: soft; Negative for tender or guarding Back/Spine no CVA tenderness General Back: Negative for CVA tenderness Cervical Spine: Negative for cervical spine tenderness Thoracic Spine / Upper Back: Negative for thoracic spinal tenderness Sacrum: Negative for tenderness Extremity normal to inspection and full ROM General Extremety ED: Negative for cyanosis, tenderness or other findings General Extremity: Negative for cyanosis or other findings Neuro oriented x3 and CN's II-XII intact bilaterally Sensorium / Orientation: alert, oriented to person, oriented to place and oriented to time; Negative for orientation impaired Motor Exam: strength 5/5 throughout; Negative for general weakness or strength abnormal Psych Appearance: Negative for other Attitude: No agitated Mood & Affect: Negative for depressed, anxious or tearful Skin General Skin Exam: Negative for jaundice or pallor Lesions: no lesions Rashes: no rashes Trauma: Negative for abrasion or laceration [facility] MDM MDM Narrative Medical decision making narrative: 78-year-old female on Eliquis for A-fib with atraumatic right-sided nosebleed. Afrin nasal spray soaked cottonball was placed on both sides of the nose. Will place an anterior nasal plaque at least on the right once I get the bleeding slowed. Multiple repeat exams numerous hours. Cotton balls soaked with Afrin were placed in bothWhile the patient was in the emergency department for his nose multiple times as was Domenic solution. I tried anterior Merisel packs without any relief. I then placed a long rapid Rhino rocket which currently is controlling the bleeding at 11:10 PM. A nasal dressing was applied. I did check labs she is anemic she is chronically anemic but this is around her baseline a little lower. Around 11:15 PM I did ambulate the patient to see if the nose to rebleed and take her to the bathroom. Again lightheaded had a syncopal episode I lowered her to the ground. Quickly came to. She did not fall or get injured. Given the severity of her initial nosebleed which is currently controlled and her symptoms and her anemia she will be admitted. She is being typed and crossed for 2 units of blood. Will be transfused 1. I spoke to Dr. Stacey Copeland was in the emergency department event happened and is evaluating her for admission. I also have ENT on page. She is a known patient to their group. Repeat vital signs after the syncopal episode showed a pressure systolically of 80/49.Treated with I have a liter normal saline. She is resting comfortably. The nosebleed is well-controlled. History & Record Review Discussion w/independent historian: Patient Additional record(s) reviewed:: Prior inpatient record, Prior outpatient record, Prior ED visit, Prior labs and No prior records Lab Data Attestation: I reviewed the patient's lab results. Lab results narrative: CBC was done white count is 3.3. H&H 8.4 and 25 I have no old labs to know her baseline. White count is normal at 224. We had no old labs available in our computer. Patient gets labs done to [facility] she looked up on [employer] on her phone. She remains chronically anemic. Hemoglobin is normally between 9-1/2 and 12. Her last 1 was around 9.6. Platelet counts were baseline. Patient has a chronic anemia. Has required transfusions in the past. Labs: Laboratory Results - last 24 hr 07/16/23 07/16/23 22:36 23:34 WBC 3.3 L RBC 2.31 L Hgb 8.4 L Hct 25.0 L MCV 108.2 H MCH 36.4 H MCHC 33.6 RDW Std Deviation 65.6 H RDW Coeff of Ragini 16.4 H Plt Count 224 MPV 8.8 Differential Comment SCANNED Crossmatch See Detail Critical Care Time Critical Care Time: Yes Critical care time (excluding procedures): 30-74 minutes, Including time spent:, Discussing w/Patient &/or Family/Stud Master/Mistress, Discussing w/Consultants, Arranging Admission or Transfer, Performing Direct Patient Care at Bedside and - (35 min) Discharge Plan Dx/Rx/DC Orders Clinical Impression: Acute anterior epistaxis, Chronic anemia, Chronic anticoagulation, History of atrial fibrillation, Episode of syncope Disposition Disposition: Acute Care [facility]
[2023-07-16] MEDS: Silver Nitrate (BKC) 3 EACH TOPICAL (20:40)
[2023-07-16] MEDS: Mixture 30 ML Bottle TOPICAL (21:37)
[2023-07-16 22:42] LABS: Hemoglobin 8.4 g/dL (12.0-15.0); Mean Corp Hgb Conc 33.6 g/dL (32-36); Mean Corpuscular Hgb 36.4 pg (27.0-32.0); Mean Corpuscular Volume 108.2 fL (81-99); Mean Platelet Vol. 8.8 fl (6.2-12.0); POSITIVE MORPHOLOGY YES; Platelet Count 224 K/mm3 (150-450); RBC Distribution Width CV 16.4 % (11.6-14.6); RBC Distribution Width SD 65.6 fl (35.1-43.9); Red Blood Count 2.31 M/mm3 (4.2-5.4); White Blood Count 3.3 K/mm3 (4.4-11.0)
[2023-07-16 22:47] LABS: Scan Indicated on CBC? Y/N YES- FLAGS NOTED
[2023-07-16 23:04] LABS: Differential Comment SCANNED
[2023-07-16 23:27] VITALS: BP 83/50; PULSE 54
--- NOTE | 2023-07-16 23:40 | HP.PCM.HOS_ITS ---
HPI - General General Date of Admission: 07/16/23 Date of Service: 07/16/23 Chief Complaint: Spontaneous right sided epistaxis on anticoagulant therapy. HPI Narrative The patient is a 78 y/o F w/ PMHx: Hypothyroidism, Diabetes mellitus type II, Hx L sided Breast CA unclear type x 3 separate occasions s/p chemotherapy/radiation/lumpectomy and eventual mastectomy, PAF s/p ablation on chronic eliquis, HTN, HFpEF, CAMRYN on CPAP, Chronic anemia (CC most recent noted 9.4 Hgb), Valvular Heart Disease w/ planned upcoming CC main tricupid valve s urgical intervention unclear specific type on 07/27/23 per patient report who presents to the [facility] ED on 07/16/23 with history of onset sudden spontaneous r sided epistaxis without injury with profuse ongoing bleeding prompting evaluation. She had similar episode 06/25/23. Workup in the ED included initially T99.3, heart rate 90, BP 138/70, respiratory 18, 97% on room air, CBC with WBC 3.3, hemoglobin 8.4, MCV 108.2, platelet 224 without differential. Patient unfortunately with assistance walking to the restroom with onset of lightheadedness and dizziness with syncopal event laid to the ground with no trauma with loss of bladder coming to within seconds transition to an ED bed and placed back in her room with IV access placed with follow-up blood pressure 80/49. Discussed with ED physician and given significant sudden acute blood loss anemia with this occurrence in the setting of epistaxis although currently controlled plan to ED discussion of case with her ENT doctor Dr. Maguire and 1 unit PRBC has also been ordered. Given patient's syncopal event with plan PRBC administration and admission BMP has been ordered and is pending upon requested evaluation of patient. COUNTS INCLUDE 234 BEDS AT THE [facility] Medical History (Updated 07/17/23 @ 00:[address] Stacey Copeland MD) Chronic anemia Diabetes mellitus, type 2 History of breast cancer HLD (hyperlipidemia) HTN (hypertension) Hypothyroidism CAMRYN on CPAP PAF (paroxysmal atrial fibrillation) Valvular heart disease Home Medications spironolactone 25 mg tablet mg PO DAILY HF, HTN 07/16/23 [History Last Taken Unknown] amiodarone 200 mg tablet mg PO DAILY PAF 07/17/23 [History Last Taken Unknown] amlodipine 2.5 mg tablet mg PO DAILY HTN 07/17/23 [History Last Taken Unknown] apixaban 5 mg tablet (Eliquis) mg PO BID PAF 07/17/23 [History Last Taken Unknown] atorvastatin 20 mg tablet mg PO QHS HLD 07/17/23 [History Last Taken Unknown] exemestane 25 mg tablet mg PO DAILY Breast CA 07/17/23 [History Last Taken Unknown] finasteride 5 mg tablet mg PO DAILY ? 07/17/23 [History Last Taken Unknown] furosemide 40 mg tablet mg PO DAILY HF, HTN 07/17/23 [History Last Taken Unknown] levothyroxine 100 mcg tablet mcg PO .qam Hypothyroidism 07/17/23 [History Last Taken Unknown] metformin 500 mg tablet mg PO BID DM 07/17/23 [History Last Taken Unknown] metoprolol succinate 25 mg tablet,extended release 24 hr mg PO DAILY PAF, HTN, HF 07/17/23 [History Last Taken Unknown] potassium chloride 20 mEq tablet,extended release(part/cryst) (Klor-Con M) meq PO DAILY HypoK 07/17/23 [History Last Taken Unknown] Allergy/AdvReac Type Severity Reaction Status Date / Time anastrozole Allergy Rash Verified 07/16/23 18:38 hydrocodone [From [place]] Allergy Vomiting Verified 07/16/23 18:38 Penicillins Allergy Rash Verified 07/16/23 18:38 Family History (Updated 07/17/23 @ 00:[address] Stacey Copeland MD) Mother Breast cancer Hypertension Heart disease Father Hypertension Heart disease Surgical History (Updated 07/17/23 @ 00:[address] Stacey Copeland MD) History of appendectomy History of left mastectomy History of pancreatic surgery Status post left breast lumpectomy Social History (Updated 07/17/23 @ 00:[address] Stacey Copeland MD) household members: none housing: house Smoking Status: Never smoker alcohol intake: never substance use type: does not use ROS ROS Narrative Admission Review of Systems: CONSTITUTIONAL: No weight loss, fever, chills, + weakness or fatigue. HEENT: + LH/dizziness. Eyes: No visual loss, blurred vision, double vision or yellow sclerae. Ears, Nose, Throat: No hearing loss, sneezing, congestion, runny nose or sore throat. SKIN: No rash or itching, lesions, wounds. CARDIOVASCULAR: + Syncope. No chest pain, chest pressure or chest discomfort, palpitations, edema, orthopnea, syncopal events. RESPIRATORY: No shortness of breath, cough or sputum, wheezing, hemoptysis. GASTROINTESTINAL: No anorexia, nausea, vomiting or diarrhea, abdominal pain, melena, BRBPR. GENITOURINARY: No dysuria, frequency, urgency or retention. NEUROLOGICAL: + LH/dizziness, syncopal event. No headache, paralysis, ataxia, numbness or tingling in the extremities, focal weakness, change in bowel or bladder control, seizure. MUSCULOSKELETAL: + muscle, back pain, joint pain or stiffness. HEMATOLOGIC: + Chronic anemia, acute blood loss anemia, epistaxis. LYMPHATICS: No enlarged nodes. No history of splenectomy. PSYCHIATRIC: No history of depression or anxiety. ENDOCRINOLOGIC: No reports of sweating, cold or heat intolerance. No polyuria or polydipsia. ALLERGIES: No history of asthma, hives, eczema or rhinitis. Vital Signs Vital Signs Vital Signs: 07/16/23 18:38 Temperature 99.3 F H Temperature Source Temporal Pulse Rate 90 Respiratory Rate 18 Blood Pressure 138/78 H Blood Pressure Mean 98 Pulse Ox 97 Weight Weight: 146 lb Body Mass Index (BMI) 26.6 Physical Exam Narrative Physical Examination: General: Awake, alert, oriented to self, place and recent events, now sitting in the ED bed, recently had been ambulating to the bathroom with assistance with onset of lightheadedness and dizziness with syncopal events, currently mentally appropriate, seated upright in the bed, fatigued. Skin: Pale color, normal turgor, no icterus, no cyanosis except for occasional staged ecchymoses, abrasion. HEENT: AT/NC, EOMI, PERRLA, dry MM, R nare with nasal rocket/packing in place, no active bleeding, no carotid bruits or JVD noted. Lungs: CTA bilaterally, moderate effort, mild decrease BL bases, no rales, ronchi or wheezing. Heart: Mildly bradycardic with regular rhythm; no gallop, rub audible, + SM, chest with obvious evidence of previous left mastectomy. Abdomen: Soft, NTTP, ND, distant normal BS, no HSM. Extremities: No cyanosis, clubbing, or edema. Neurological: Patient awake, alert, oriented as noted, cognitive function improved, recent syncopal events, came to quickly, pupils equally reactive to light and accommodation, cranial nerves grossly normal, moving all 4 extremities, no focal deficits, strength severely globally decreased secondary to acute presentation. Psychiatric: Affect appears flat, fatigued, no acute evidence of depressive or anxiety feelings. Results Lab / Micro Data 07/16/23 22:36 Labs: Laboratory Results - last 24 hr 07/16/23 22:36: WBC 3.3 L, RBC 2.31 L, Hgb 8.4 L, Hct 25.0 L, MCV 108.2 H, MCH 36.4 H, MCHC 33.6, RDW Std Deviation 65.6 H, RDW Coeff of Ragini 16.4 H, Plt Count 224, MPV 8.8, Differential Comment SCANNED Assessment & Plan Assessment/Plan (1) Episode of syncope: (2) Acute blood loss anemia: (3) Epistaxis: PLAN: Plan The patient is a 78 y/o F w/ PMHx: Hypothyroidism, Diabetes mellitus type II, Hx L sided Breast CA unclear type x 3 separate occasions s/p chemotherapy/radiation/lumpectomy and eventual mastectomy, PAF s/p ablation on chronic eliquis, HTN, HFpEF, CAMRYN on CPAP, Chronic anemia (CC most recent noted 9.4 Hgb), Valvular Heart Disease w/ planned upcoming CC main tricupid valve surgical intervention unclear specific type on 07/27/23 per patient report who presents to the [facility] ED on 07/16/23 with history of onset sudden spontaneous r sided epistaxis without injury with profuse ongoing bleeding prompting evaluation. She had similar episode 06/25/23. #1. Acute R sided spontaneous epistaxis on chronic oral anticoagulant therapy with Acute Blood Loss Anemia on Chronic Anemia with associated syncopal event with hypotension secondary to blood loss: Admission hemoglobin 8.4 with most recent noted prior per [facility] records 9.4 with profuse blood loss within a short amount of time as likely etiology for her syncopal event, administered 1L NS in the ED given hypotension after syncopal event with BP improvement, will admit to PCU to be cautious, maintain on monitor, maintain on fall precautions, judiciously hydrate with additional NS until PRBC is typed and crossed and available for administration, will trend CBC, continue with ED initiated ENT consultation, continue packing and rocket in right nare with continued prophylactic antibiotic therapy with Keflex pending further ENT recommendations, PT/OT/case management consulted for discharge planning. #2. PAF: Status post previous history of ablation, we will continue patient home amiodarone regimen, holding BB given hypotension with re-addition once appropriate, holding Eliquis given presentation and given serial events as well as advanced age would consider patient significantly high risk and certainly would consider discontinuation of this medication permanently. #3. HFpEF: Patient reporting EF appropriate thus suspect HFpEF but uncertain, will hold eliquis as noted, continue statin, holding metoprolol, Lasix, spironolactone, not on ROBERTA inhibitor/ARB from records but had been previously. Judiciously hydrating with IV fluids until PRBC available and if necessary if BP is improved may certainly pulse dose with IV Lasix if appropriate. #4. Hypertension: Given presentation and noted with syncopal event with hypotension with acute blood loss anemia we will hold patient hypertensive regimen which from records includes amlodipine, metoprolol, spironolactone, Lasix with resumption's once clinically appropriate. #5. Hyperlipidemia: We will continue patient on statin therapy. #6. Hx L sided Breast CA: Unclear type x 3 separate occasions s/p chemotherapy/radiation/lumpectomy and eventual mastectomy, following with Dr. Thao, will continue patient home exemestane regimen, encouraged continued out patient follow-up with oncology as previously arranged. #7. Hypothyroidism: We will continue patient home levothyroxine regimen. #8. Diabetes mellitus type II: Hold oral home regimen, ADA diet, accu checks w/ ISS. #9. Valvular heart disease: Patient with reported tricuspid valve disease with upcoming 07/27/2023 surgical intervention repair planned at [facility]. She notes she had been instructed to stop her anticoagulant therapy 3 days prior. Encouraged her to update them on this recent event. #10. CAMRYN: Given current presentation holding CPAP. #11. DVT prophylaxis: Given acute presentation as noted #1 holding patient home Eliquis regimen. #12. CODE status: Patient SANDRO is and her niece and living will is currently in place. Discussed CODE status at length including difference between FULL code, DNR-CCA and DNR-CC status. Following discussions about the differences in these status, requested Full Code status. Advanced Care Planning Face to Face Time: 16 minutes. Charges/Coding Visit Charges Inpatient E&M: 89047 Init Hosp L3 Procedures Hospitalists Procedures: 08592 Advncd Care Plan 30 Min
[2023-07-16 23:46] VITALS: BP 80/49; PULSE 64
[2023-07-16 23:49] VITALS: BP 80/49; PULSE 57; RESP 16; O2SAT 92
[2023-07-16 23:53] VITALS: BP 82/48; PULSE 58
[2023-07-16] MEDS: 0.9% Normal Saline (500mL Bag) 500 ML 999 ML IV (23:53)
[2023-07-16 23:55] VITALS: BP 82/48; PULSE 58; RESP 16; O2SAT 97
--- NOTE | 2023-07-16 23:56 | ED.RN ---
Dr. Smith ambulating and talking with patient in the hallway. Patient then stated that she was not feeling well and her knees started to get weak. Dr. Smith and staff lower patient to the floor. Pillow placed underneath her head. She then had a syncopal episode. Loss of bladder function at this time. Patient came to approximately 15 seconds later. Patient was alert and orient x3. Bed brought into hallway. Patient assisted into bed x5 staff members. When brought back to the room patient was placed on the manager trade. Pulse 54 BP 83/50 R 14. IV initiated. Neighbor at bedside.
--- OUTSIDE RECORDS SUMMARY | 2023-07-16 23:59 | XMS RPT_ITS | CCD ---
Author Name Unknown Address [address] [place] [address] Organization [facility] Care Team Providers Care Office Nurse Practitioner Name Role Phone J Luis Cid Unavailable Deisi RN, Indu (Rn) Unavailable Tala Negron MD Primary Care Provider No, Referral Unavailable Unavailable Howard Cody MD Unavailable Manny RUSSO MD, Estefani Unavailable Mesfin PRICE, Kami Unavailable Unavailable Vikram Gomez MD Unavailable Vikram Gomez MD Unavailable Preet PRICE, Lesley Zaman Unavailable Unavail able Preet PRICE, Lesley Zaman [facility]available [facility] Addie Unavailable [phone] J Luis Cid Unavailable [facility] RNIndu (Rn) Unavailable Tala Negron MD Primary Care Provider Howard Cody MD Unavailable Manny RUSSO MD, Estefani Unavailable Mesfin PRICE, Kami Unavailable Unavailable Vikram Gomez MD Unavailable Vikram Gomez MD Unavailable Preet PRICE, Lesley Zaman Unavailable Rocio CLARKE Addie Unavailable Tala Negron MD Primary Care Provider Vikram Gomez MD Unavailable Preet PRICE, Lesley Zaman Unavailable [phone] J Luis Cid Unavailable Deiis RN, Indu (Rn) Unavailable Tala Negron MD Primary Care Provider No, Referral Unavailable Unavailable Escobar RUSSO, Howard Unavailable Manny RUSSO, , Dayayo Unavailable Mesfin RN, Kami Unavailable Unavailable Jason RUSSO, Vikram Unavailable Jason RUSSO, Vikram Unavailable Daniela Chan DO Unavailable Darby PRICE, Lucas Unavailable Darby PRICE, Lucas Unavailable [phone] J Luis Cid Unavailable No, Referral Unavailable Unavailable [facility] RN, Indu (Rn) Unavailable Howard Cody MD [...] le TALA NEGRON Referring Unavailab le TESTTRACY ANGULO Referring Unavailable TALA NEGRON Primary Care Unavailab le GOLALEXEI, ANSELMO Attending Unavailable TRACY MCKEON Referring Unavailable TALA NEGRON Primary Care Unavailab le GOLIASANSELMO Attending Unavailable ATLA NEGRON Primary Care Unavailab le TALA NEGRON Referring Unavailab le GOLALEXEI, ANSELMO Attending Unavailable TALA NEGRON Primary Care Unavailab le TALA NEGRON Referring Unavailab le GOLIAS, ANSELMO Attending Unavailable TALA NEGRON Primary Care Unavailab TALA Adame Referring Unavailab le GOLIAS ANSELMO Attending Unavailable TRACY MCKEON Referring Unavailable TALA NEGRON Primary Care Unavailab le GOLIAS, ANSELMO Attending Unavailable TRAVIS BASS Referring Unavailable TRAVIS BASS Attending Unavailable TALA NEGRON Primary Care Unavailab MURRAY Milligan Attending Unavail able TALA NEGRON Primary Care Unavailab le TALA NEGRON Primary Care Unavailab le TALA NEGRON Primary Care Unavailab VLADIMIR Mckeon Referring Unavailable TALA NEGRON Primary Care Unavailab le TYRELL, AJIT Attending TALA Bess Primary Care [facility] TALA Adame Primary Care [facility] NIMISHA Mehta Referring TALA Bess Primary Care [facility] plan of care as noted below. Goals [...] visit and 1 visit for fitting and picker/puller) Planned Treatment Interventions: Orthosis / DME, Body Mechanics Training, Patient/Family/Caregiver Education, Self-penitentiary management (14214), Gait Training (82161) PLAN FOR NEXT VISIT: Fitting and picker/puller of custom foot orthotics Patient demonstrates good [...] Anselmo Prather PT documented in this encounter [facility] 07-24-2022 Note [facility] 07-22-2022 Miscellaneous Notes Done. Nimisha Aleman APRN.CLIENT TECHNICAL SPECIALIST Please place order for a stat BMP or CMP or Creatinine for pt appt is 07/24/22 documented in this encounter [facility] 07-10-2022 Miscellaneous Notes Patient needs Rx resent to [facility]. She realizes that this was sent in November for 1 year but she had pharmacy issues and needs it sent again. Angy Schultz LPN documented in this encounter [facility] 07-07-2022 Miscellaneous Notes Confirmed receipt of photo from the patient. She reports the biopsy site is the small red area in the central supratip of her nose. DEPARTMENT OF DERMATOLOGY DERMATOLOGY SURGERY APPOINTMENT ROUTING SLIP A. 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 Office states they are unable to e-mail a photo as their consult order was not sent to [facility] derm but rather to the patients PCP and the PCP would have to request the photo. They are unable to send to [facility] derm at this time. Recommended procedure: Mohs [...] No Patient instructed to call Derm Surgery ([phone]) if they have not received a call from them in 1 week. Spoke to patient and she will send a photo to us via [employer]. Patient states the biopsy site was in [...] preference Omr received documented in this encounter [facility] 07-02-2022 Miscellaneous Notes I called and spoke to [facility] dermatology and they stated they need the records and pathology report from [facility] before they can schedule patient for the mohs procedure there. I called [facility] but they are already closed for the day. Please try calling them and requesting that they fax records (Last visit notes) and pathology to [facility] dermatology at [phone]. Then we can call them back after we know they received the records and schedule Queenie for the Mohs procedure. July Zaragoza Pss Please see my chart message. Pt. would like to have Mohs procedure done at [facility] derm. Please schedule. Thank you. Nimisha Aleman APRN.CLIENT TECHNICAL SPECIALIST documented in this encounter [facility] 06-03-2022 History of Present illness Narrative [facility] INCIDENTAL LUNG NODULE PROGRAM ([facility] Follow-Up) Assessment / Plan 1. Lung nodule [...] and is in agreement with plan. Esperanza Santos APRN.CLIENT TECHNICAL SPECIALIST Incidental Lung Nodule Follow Up Concern for New Cancer Diagnosis: No Recommendation: CT Scan Follow up Date: 07/28/2022 Lung Nodule Follow-Up Scheduled: Yes Enrolled in Lung Nodule program: Yes Lung Nodule Program Location: [place] Thank you for allowing me to participate in the care of Queenie Adan. Please feel free to contact me with any questions or concerns. Medical Decision Making: Problems: Moderate: 1+ chronic illnesses with change Data: Unique test result(s) reviewed: 2 Medical Decision Making Level: 3 - Low I spent more than 30 minutes jpxy-oa-jvwd with the patient and over half the time was devoted to counseling and/or coordination of care. DISTANCE HEALTH VISIT NOTE This is a selection box for telephone visit , virtual visit using [employer] video visit . It required patient-provider interaction [...] (HCC) 1998 lobular, left side. Stage I, ER+/ND+/HER2-. Seeing Dr. 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 IMPRESSION: New right lower lobe pulmonary nodule. Metastatic disease cannot be excluded. Stable left lung nodule. Short interval follow-up recommended ACTIONABLE RESULT: FOLLOW-UP Acuity: Actionable Findings: Thoracic-Other Routing Code: CT_1 Recommendation: Unlisted Recommendation (see report) Time Frame: At the discretion of the clinical team. COMMUNICATION: Results will be communicated with the ordering provider via [employer] staff message or phone message by [facility] within 2 business days of report finalization. I have personally visualized, reviewed and confirmed the imaging findings. Assessment / Plan @FOLLOWUP@ To optimize physician communication via the electronic health record, the Assessment & Plan section has been placed at the beginning of this note. ----- Esperanza Santos APRN.EUNICE Pulmonary & Critical Care Medicine Respiratory [place] June 02, 2022 1:18 PM CC: Tala Negron MD documented in this encounter [facility] 05-26-2022 Miscellaneous Notes SW received a [employer] renewal application for pt for Ibrance medication. SW obtained pt's signature and copies of pt's insurance cards. SW had physician review and sign application as well. SW successfully faxed these re-enrollment forms to [employer] this date and sent the original to internal scanning. MICHAEL Shin-S documented in this encounter [facility] 05-23-2022 History of Present illness Narrative Chief [...] mastectomy for what proved to be a [id number] ER+/ND+/HER2- breast cancer. The tumor was 1.6 cm. [...] tissue edges. The invasive carcinoma is a Eastman Grade 3; definitive dermal angiolymphatic space invasion [...] excision - Invasive ductal carcinoma, clinically recurrent, Amrilyn grade 2, measuring 8 mm in greatest dimension (please see comment and synoptic report). - Large organizing hematoma and stromal scar. - Biopsy site reparative changes. EDK/edk 03/27/2020 COMMENT The prior excisional biopsy ([id number]) contained a 12 mm focus of invasive ductal carcinoma. As such, the final pT assignment is pT1c. SYNOPTIC REPORT OF [place] PATHOLOGIC FINDINGS DUCTAL MASS, LEFT BREAST: BREAST [...] receptor: Positive (50%, moderate) Specimen number #: [id number] (HER2) ERBB2 Status: Previously performed and reported [...] chest pain, +ST elevation, once transported to [facility] an immediate catherization was done-no significant coronary [...] 1.00 - 4.00 k/uL 1.22 1.58 1.42 Bucks% % 14.8 7.8 7.0 Abs Bucks <0.87 k/uL 0.49 0.26 0.23 Eosin% % [...] as necessary for today's visit. Nimisha Aleman APRN.CLIENT TECHNICAL SPECIALIST documented in this encounter [facility] 05-21-2022 History of Present illness Narrative Chief Complaint Patient presents with: F/U 3 Month HPI Queenie E Orquidea Adan is a 77 year old female who presents here today for 3 month follow up. No bowel, Gi, or urinary issues. Hx of IPMN, managed by Dr. Gomez. S/p pancreatectomy/splenectomy in 2020. Hx of breast cancer in 1998. Is taking Aromasin 25 mg daily. Managed by oncology here in [place]. Notes that they found new lung nodule [...] History PAST MEDICAL HISTORY Diagnosis Date A-fib ([facility]) Dr. Cody Breast cancer ([facility]) 1998 lobular, left side. Stage I, ER+/ND+/HER2-. Seeing Dr. Friend Chronic diastolic CHF (congestive heart failure) ([facility]) Coronary artery disease mild Elevated alkaline phosphatase level Falls frequently GERD (gastroesophageal reflux disease) HTN (hypertension) Hyperparathyroidism (HCC) IPMN (intraductal papillary mucinous neoplasm) 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, estrogen receptor positive ([facility]) 01/09/2017 Osteoarthritis, knee Pancreatic cyst 11/2019 Pancreatitis [...] COMPLETE Left 02/12/2017 Left Compl Mast: pT1cNx, ER/ND+, HER2 Neg IDC w/Radial Margin MIDLINE INSERTION/CONSULT [...] 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 fizfs-hn-8-oxf-ujc-roxsxoq-ast [phone] mg cap Take 1 tablet by mouth. [...] Abs Lymph 1.00 - 4.00 k/uL 1.42 Bucks% % 7.0 Abs Bucks <0.87 k/uL 0.23 Eosin% % 3.0 Abs [...] MG TABLET 7. Coronary artery disease involving [place] coronary artery of [place] heart with angina pectoris (HCC) - ICD9: [...] which included preparing to see the patient, fwbm-tj-eymp patient care, completing clinical documentation, obtaining and/or reviewing separately obtained history, performing a medically appropriate examination, counseling and educating the patient/family/caregiver, and ordering medications, tests, or procedures. Tala Negron MD documented in this encounter [facility] 05-16-2022 History of Present illness Narrative RADIOLOGY [...] 07:45 PATIENT DISCHARGED TO: Ambulatory patient, left [place] department area. A Diagnostic radioactive procedure has taken place, with no further precautions necessary other than routine body substance precautions. More information regarding radiation safety can be found using this link: [email or web address] SIGNATURE: WILLIE Grey PATIENT NAME: Queenie Adan DATE: May 16, 2022 TIME: 10:38 AM PAGER/CONTACT #: documented in this encounter [facility] 03-21-2022 History of Present illness Narrative PRIMARY CARE COORDINATION QUICK NOTE Provider Action/FYI Chart reviewed, goals, falls, adl's updated. Patient identified by name and date . documented in this encounter [facility] 03-18-2022 Miscellaneous Notes I spoke with patient [...] a virtual appointment for early May. Esperanza Santos APRN.EUNICE documented in this encounter [facility] 03-10-2022 Miscellaneous Notes March 10, 2022 PID: [id number] Queenie Adan [address] [place] [address] Dear Ms. Oruqidea Adan, We are pleased to inform you [...] report will be kept on file at [facility] as part of your permanent medical record and are available for your continuing care. Thank you for allowing us to help in meeting your health care needs. Sincerely, Dr. Zapata Interpreting Radiologist [facility] (Normal over 40) documented in this encounter [facility] 02-28-2022 History of Present illness Narrative Chief [...] mastectomy for what proved to be a [id number] ER+/ND+/HER2- breast cancer. The tumor was 1.6 cm. [...] tissue edges. The invasive carcinoma is a Eastman Grade 3; definitive dermal angiolymphatic space invasion [...] excision - Invasive ductal carcinoma, clinically recurrent, Eastman grade 2, measuring 8 mm in greatest dimension (please see comment and synoptic report). - Large organizing hematoma and stromal scar. - Biopsy site reparative changes. EDK/edk 03/27/2020 COMMENT The prior excisional biopsy ([id number]) contained a 12 mm focus of invasive ductal carcinoma. As such, the final pT assignment is pT1c. SYNOPTIC REPORT OF [place] PATHOLOGIC FINDINGS DUCTAL MASS, LEFT BREAST: BREAST [...] receptor: Positive (50%, moderate) Specimen number #: [id number] (HER2) ERBB2 Status: Previously performed and reported [...] chest pain, +ST elevation, once transported to [facility] an immediate catherization was done-no significant coronary [...] 1.00 - 4.00 k/uL 1.76 1.22 1.58 Bucks% % 11.3 14.8 7.8 Abs Bucks <0.87 k/uL 0.61 0.49 0.26 Eosin% % [...] - Follow up May 23 @12:30 with CBC/VSFBB35-1/CA27.29 - Pt. aware to call office with any questions/concerns. The patient indicates understanding of these issues and agrees with the plan. All documentation from previous visit of 11/11/21-Dr. hTao/myself was copied and pasted, documentation has been reviewed and edited as necessary for today's visit. Nimisha Aleman APRN.CNP documented in this encounter [facility] 02-17-2022 Instructions Kizzy Gonsales APRN.CNP - 02/17/2022 10:10 PM EDT PAP [...] 6 months *Self-Pay documented in this encounter [facility] 02-17-2022 History of Present illness Narrative Images from the original note were not included. [facility] Follow up/ Established patient visit Date of last visit : 08/19/2021 Per last visit: IMPRESSION: Diagnosis: Camryn (obstructive sleep apnea) (primary encounter diagnosis) Atrial fibrillation, chronic (hcc) Chronic diastolic chf (congestive heart failure) ([facility]) Coronary artery disease involving [place] coronary artery of [place] heart with angina pectoris ([facility]) Pulmonary hypertension ([facility]) S/p ablation of atrial fibrillation Sinus pause [...] of oral appliance. When Luciana here in [place] reset her PAP machine it erased window. This is very upsetting to her. She likes to wake up and see what her events were the night before. My nurse, Cullen, at [place] may be able to assist her. She likes downtown [place]; so will send a Ver[employer] message when she heads this way and will ask Cullen to look at her machine. See if we can restore her window. Also with some complaints of irritation behind her ears. Little scabby. She will be leaving soon to go to [place] X 3 weeks. She has another PAP machine there too and it needs reset to auto-titrating CPAP 5-8 cmH2O with humidification and with concurrent use of oral appliance. She has requested a script be mailed to her that she can give to Luciana in [place]; so machine can be reset. Plan: 1) [...] AutoPAP adjusted to 5-8 cmH20 (machine in [place]). 4) Message sent to Cullen about looking at patient's machine here in [place] when she visits [place]. Luciana erased her window on her machine and she likes to see what her events were the night prior. Cullen may be able to reset window. 5) Use a little bit of Bacitracin or Vaseline on the ears to help the irritation. - Follow up in 6 months or sooner with Kizzy Gonsales CNP. If you have questions, feel free to send me a Verivue message or contact [place] office at [phone] (after hours, leave message at [phone]). I spent a total of 40 minutes as this was an established patient to me on the date of the service which included preparing to see the patient, rkcj-ji-nkxa patient care, completing clinical documentation, counseling and educating the patient/family/caregiver and ordering medications, tests, or procedures. Kizzy Gonsales APRN.CLIENT TECHNICAL SPECIALIST Interval history : Here for follow up [...] PAP compliance data: Device interrogated in room. [employer] DreamStation 2 Advanced Pressure 5-8 cmH20 Mode [...] use. ------- SLEEP HYGIENE QUESTIONS: Bedtime : 2570-9215 Wake up Time : 4706-8258 Going to the gym twice a week. 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 ufflv-hf-6-oqt-tvy-erfamjq-ast [phone] mg cap Take 1 tablet by mouth. [...] of new supplies Will send script to [facility]. - Remember to clean your mask and [...] -- also called portable monitoring or an zef-wy-pnkwrm sleep test, is a diagnostic test sleep professionals and doctors use to diagnose obstructive sleep apnea. A technically adequate HSAT device incorporates a minimum of the following sensors: nasal pressure, chest and abdominal respiratory inductance plethysmography, and oximetry; or peripheral arterial tonometry (PAT) with oximetry and actigraphy (2). - Call [phone] to schedule your home sleep study if [...] numbers, based upon your location preference: - [facility] or [facility] - [phone] or toll free at [phone] - Karishma - [phone] - [place] - [phone] - Jeanie - [phone] The device will be delivered to your home via UPS. You do not need to be home to sign for the package. Please use the equipment the night you receive it and return the equipment the following day. UPS packaging and return postage are included. Your device will contain instructions how to use the equipment and a contact number for a cytopathology technologist. The technologist can help address any problems that occur during the test. You will receive a telephone call or a [employer] message approximately 1 week prior to receiving the home sleep apnea test equipment. To reschedule please call [phone]. - Avoid driving when drowsy. Recommend that if you are dozing off while driving, that you do not drive until your sleepiness is appropriately treated. -Encouraged healthy lifestyle with adequate sleep ( 7-9 hours per night), diet and exercise. Will call and send HSAT results to patient. Follow up in 1 year. If you have questions, feel free to send me a Verivue message. I spent a total of 30 minutes as this was an established patient to me on the date of the service which included preparing to see the patient, mvtv-zr-lcey patient care, completing clinical documentation, counseling and educating the patient/family/caregiver and ordering medications, tests, or procedures. Kizzy Gonsales APRN.EUNICE documented in this encounter [facility] 02-14-2022 History of Present illness Narrative Chief Complaint Patient presents with: Follow Up: 3 month HPI Queenie Adan is a 77 year [...] History PAST MEDICAL HISTORY Diagnosis Date A-fib ([facility]) Dr. Cody Breast cancer ([facility]) 1998 lobular, left side. Stage I, ER+/ND+/HER2-. Seeing Dr. 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 lhlmy-sh-5-erj-dws-qlllbnu-ast [id number] mg cap Take 1 tablet by mouth. [...] Abs Lymph 1.00 - 4.00 k/uL 1.22 Bucks% % 14.8 Abs Bucks <0.87 k/uL 0.49 Eosin% % 2.7 Abs [...] 3 months. 6. Coronary artery disease involving [place] coronary artery of [place] heart with angina pectoris (HCC) - ICD9: [...] for - ICD9: V76.12, ICD10: Z12.31 - [facility] SCREENING Tala Negron MD documented in this encounter [facility] 02-14-2022 History of Present illness Narrative HPB [...] which included preparing to see the patient, lqqn-mb-nmen patient care, completing clinical documentation, obtaining and/or reviewing separately obtained history, performing a medically appropriate examination, counseling and educating the patient/family/caregiver, ordering medications, tests, or procedures, communicating results to the patient/family/caregiver, and care coordination (not separately reported). Anirudh Gomez MD [facility] surgery Pager: [phone] documented in this encounter [facility] 02-11-2022 Miscellaneous Notes Call from patient requesting refill. Requested Prescriptions Pending Prescriptions Disp Refills potassium chloride ER (KLOR-CON M20) 20 mEq tablet 120 tablet 3 Sig: Take 2 tablets by mouth every 48 hours AND 4 tablets every 48 hours. Patient last seen 11/26/21 Jose Duenas documented in this encounter [facility] 02-06-2022 Miscellaneous Notes Refills sent as requested. [...] to pharmacy. No need to notify patient. ASYA 11/08/21 Scheduled 02/14/22 Abigail Vargas LPN documented in this encounter [facility] 02-05-2022 History of Present illness Narrative Radiology [...] Chest, Pancreas , and Pelvis SIGNATURE: RT Frank(R) PATIENT NAME: Queenie Adan DATE: February 05, 2022 TIME: 2:38 PM documented in this encounter [facility] 01-07-2022 Miscellaneous Notes Please see my chart message and schedule OV 02/28 @ 1pm labs prior (same as previous-cancel OV 02/21. Thank you. Nimisha Aleman APRN.EUNICE documented in this encounter [facility] 01-06-2022 Miscellaneous Notes ZHENGAna Maria Pt Assistance for Dean is through [employer] and her assistance program will end 06/21/22. She will need to re-enroll. [phone] Her program ID # is [id number] For available refills pt can call this number to set up shipment 7-10 days prior. Chelsie Mcadams LPN documented in this encounter [facility] 12-30-2021 Miscellaneous Notes Social Work Problem Referral Note INFORMATION/REFERRAL : Queenie Adan 76 year old female was referred by [facility] to [facility] [place] [facility] for the following reason(s): financial assistance - meals, parking, etc. PERSONS INTERVIEWED: patient not present INTERVENTION: Information & Referral Service Co-ordination Affect/Mood: The patient is noted as patient not present IDENTIFIED PROBLEMS/NEEDS: Financial Intervention/Referral to be provided:Arrangements made for continuity of care IMPRESSION/PLAN: ZANE received fax from [employer] stating updated prescription is needed. ZANE had this completed and reviewed/signed by physician. ZANE faxed to [employer] on this day. F/U APPOINTMENT: PRN Assigned SW listed in Care Team tab: Yes MICHAEL Valencia documented in this encounter [facility] 12-13-2021 Miscellaneous Notes Called and spoke to patient. Will document in a separate phone encounter. Kami Toure RN Pt returned call, Kami was unavailable at the time. Padma Crow Called patient, no answer, left a VM requesting a call back. Kami Toure RN Jonny Mcclure. This is the patient I discussed with you. Can you call her to characterizes pain a little better? Vladimir Thao DO documented in this encounter [facility] 12-12-2021 Miscellaneous Notes Pipeline[employer] message sent to patient. documented in this encounter [facility] 11-29-2021 Nurse Note Ms. Orquidea Adan presents [...] 2021 11:42 AM documented in this encounter [facility] 11-26-2021 History of Present illness Narrative Images from the original note were not included. [facility] [place] [facility] Alberto Diaz Department of Cardiovascular Medicine SECTION OF HEART FAILURE AND CARDIAC TRANSPLANT MEDICINE OUTPATIENT VISIT DATE November 26, 2021 OUTPATIENT VISIT TYPE Virtual Encounter This Team Access Model visit is a virtual encounter. It required patient-provider interaction for the medical decision making as documented below. PRIMARY CARE PHYSICIAN: Tala Negron [address] [place] [address] CHIEF COMPLAINT: HF Management HISTORY OF PRESENT [...] last seen in clinic on 07/12/[address] [facility]. At that time, she reported overall doing well. Main concern today has been noted low heart rates at night on apple watch. She just had repeat sleep study to see if oral appliance alone would help. New pressure settings started just 2 nights ago. She feels well - sleeps 8-9 hrs per night. Vaccinated. No COVID ever. Sent vitals over [email or web address] yesterday and all look great! 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 She has been vaccinated against COVID-19 (including 2 boosters). From a cardiovascular perspective, pt continues to do well and specifically denies any CP, SOB, syncope, orthopnea, focal neuro sx, post-prandial abdominal pain, or claudication. PAST CARDIAC HISTORY: SEE HPI PAST MEDICAL HISTORY: PAST MEDICAL HISTORY Diagnosis Date A-fib ([facility]) Dr. Cody Breast cancer ([facility]) 1998 lobular, left side. Stage I, ER+/ND+/HER2-. Seeing Dr. 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 omfql-fh-1-uvx-sfx-pivefli-ast [id number] mg cap Take 1 tablet by mouth. [...] the abdomen and pelvis are dictated separately Tie Cutter (topogram) images: No additional findings. I have [...] Abs Lymph 1.00 - 4.00 k/uL 1.22 Bucks% % 14.8 Abs Bucks <0.87 k/uL 0.49 Eosin% % 2.7 Abs [...] Upload an image of LE edema to PipelineDB to help me differentiate between HF edema [...] counseling and/or coordinating care for the patient. Cpqc-xh-sfxg time was 30 minutes. We discussed natural history of disease, current treatment options, and future potential treatment options. We discussed diet, exercise, other non-medical management as above. Orders Placed This Encounter [facility] VIRTUAL VISIT APPOINTMENT Order Comments: 2-3 month VV with me Order Specific Question: Department Answer: CVM Order Specific Question: Appt Type Answer: EST Online E&M Level 3 ($533) [id number] Order Specific Question: Date of Appt Answer: [...] Past Histories independently gathered by the clinical client support professional and the remaining scribed note accurately describes my personal service to the patient. Daniela Chan DO, [facility] Staff, Section of Heart Failure and Transplantation Medicine [place] Alberto Diaz Department of Cardiovascular Medicine [place] [facility] [place] [facility] [place] [address] Phone - [phone] FAX - [phone] Answers for HPI/ROS submitted by the patient [...] No Headaches: No documented in this encounter [facility] 11-25-2021 History of Present illness Narrative INSIGHT CDM ESCALATION FYI: Attempt made to contact pt for Insight [facility] questionnaire triggered escalation. Unable to contact, [...] in 1 week? No Message received via: [employer] - No contact made with patient Left Message for PatientApolonia Zhu my name is Serina Stevens RN from the [facility]. I am calling about your responses to our [employer] questionnaire. Sorry I am not able to speak with you. If you have a problem that needs to be addressed by your physician please contact your PCP office End Outreach documented in this encounter [facility] 11-21-2021 History of Present illness Narrative Radiology [...] 2021 2:49 PM documented in this encounter [facility] 11-21-2021 History of Present illness Narrative RADIOLOGY [...] 09:40 PATIENT DISCHARGED TO: Ambulatory patient, left [place] department area. A Diagnostic radioactive procedure has taken place, with no further precautions necessary other than routine body substance precautions. More information regarding radiation safety can be found using this link: [email or web address] SIGNATURE: RT Que(Emily) PATIENT NAME: Queenie Adan DATE: November 21, 2021 TIME: 10:07 AM PAGER/CONTACT #: documented in this encounter [facility] 11-19-2021 Instructions Howard Cody MD - 11/19/2021 9:51 AM EDT Images from the original note were not included. [facility] [place] [facility] Diaz Department of Cardiovascular Medicine SECTION OF CARDIAC PACING and ELECTROPHYSIOLOGY OUTPATIENT VISIT DATE November 19, 2021 OUTPATIENT VISIT TYPE ESTABLISHED PRIMARY CARE PHYSICIAN: Tala Negron [address] [place] [address] Cardiology Physician: Daniela Chan MD [facility] MD CHIEF COMPLAINT: Atrial Fibrillation HISTORY OF PRESENT [...] disease PAST MEDICAL HISTORY Diagnosis Date A-fib ([facility]) Dr. Cody Breast cancer ([facility]) 1998 lobular, left side. Stage I, ER+/ND+/HER2-. Seeing Dr. 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 wzjfi-sr-0-auc-hoj-faosxub-ast [id number] mg cap Take 1 tablet by mouth. [...] by others. Documentation by Howard Cody MD November 19, 2021 9:35 AM documented in this encounter [facility] 11-19-2021 History of Present illness Narrative Images from the original note were not included. [facility] [place] Jorge Albetro Diaz Department of Cardiovascular Medicine SECTION OF CARDIAC PACING and ELECTROPHYSIOLOGY OUTPATIENT VISIT DATE November 19, 2021 OUTPATIENT VISIT TYPE ESTABLISHED PRIMARY CARE PHYSICIAN: Tala Negron [address] [place] [address] Cardiology Physician: Daniela Chan MD [facility] CHIEF [...] disease PAST MEDICAL HISTORY Diagnosis Date A-fib ([facility]) Dr. Cody Breast cancer ([facility]) 1998 lobular, left side. Stage I, ER+/ND+/HER2-. Seeing Dr. Friend Chronic diastolic CHF (congestive heart failure) ([facility]) Coronary artery disease mild Elevated alkaline phosphatase level Falls frequently GERD (gastroesophageal reflux disease) HTN (hypertension) Hyperparathyroidism ([facility]) 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, estrogen receptor positive ([facility]) 01/09/2017 Osteoarthritis, knee Pancreatic cyst 11/2019 Pancreatitis [...] BREAST LUMPECTOMY HX Left 1998 left breast: 2/11 nodes; s/p Adj Chemo & Adj Radt CARDIAC CATHETERIZATION HX 07/2014 ostail LAD 35% COLONOSCOPY 06/2016 5 mm polyp. 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 mpuqh-jy-0-who-vtd-nsfhblf-ast [id number] mg cap Take 1 tablet by mouth. [...] by others. [place] [id number] November 19, 2021 9:35 AM documented in this encounter [facility] 11-12-2021 Miscellaneous Notes Patient notified and will contact pediatric dental hygienist. Angy Schultz LPN Please inform pt. Thank you. Nimisha Aleman APRN.EUNICE Okay from oncology standpoint. Vladimir Thao DO Pt. was seen by Endo 2020. Recommending reclast dx osteoporosis. Wanted your opinion to start. Thank you. Nimisha Aleman APRN.EUNICE documented in this encounter [facility] 11-08-2021 Instructions Tala Negron MD - 11/08/2021 10:43 AM EDT Take 1/2 tablet of your 40 mg Lipitor daily for the next week and call with update on leg swelling. documented in this encounter [facility] 11-08-2021 History of Present illness Narrative Chief [...] History PAST MEDICAL HISTORY Diagnosis Date A-fib ([facility]) Dr. Cody Breast cancer ([facility]) 1998 lobular, left side. Stage I, ER+/ND+/HER2-. Seeing Dr. 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 wtwxc-id-5-nbi-zox-dadczav-ast [id number] mg cap Take 1 tablet by mouth. [...] Lymph 1.00 - 4.00 k/uL 1.76 1.22 Bucks% % 11.3 14.8 Abs Bucks <0.87 k/uL 0.61 0.49 Eosin% % 4.2 [...] CXR today. 4. Coronary artery disease involving [place] coronary artery of [place] heart with angina pectoris (HCC) - ICD9: [...] Tala Negron MD documented in this encounter [facility] 11-07-2021 Miscellaneous Notes Patient calls in and appointment for tomorrow rescheduled for 1020 am. Liza Hall RN Reschedule 11/08 1140a appt to different time as 1140a is during STAMP meeting. documented in this encounter [facility] 10-28-2021 Miscellaneous Notes Insurance is requesting 90 day supply. Pended appropriately with pharmacy verified. RX INSTRUCTIONS: Patient aware RX will be sent to pharmacy. No need to notify patient. Last OV: 10/14/21 with PCP Last refill: 08/10/2021 With 60 and 5 refills Last oarrs report completed: N/A PLEASE REVIEW ON EPIC Follow up: 11/08/2021 with PCP Ann Jacinto MA documented in this encounter [facility] 10-28-2021 Miscellaneous Notes Patient notified of results, verbalizes understanding of instructions. Ann Jacinto MA ----- Message from Tala Negron MD sent at 10/28/2021 1:22 PM EDT ----- Chest xray shows chronic lung changes with improving right upper lobe pneumonia. As long as shortness of breath symptoms are improving from last OV, would not add new rx at this time. documented in this encounter [facility] 10-28-2021 History of Present illness Narrative Radiology [...] 2021 10:34 AM documented in this encounter [facility] 10-16-2021 Miscellaneous Notes Patient notified and voiced [...] for further evaluation. documented in this encounter [facility] 10-14-2021 Miscellaneous Notes Spoke with patient. Given [...] chest pain, wheezing. documented in this encounter [facility] 10-14-2021 History of Present illness Narrative Chief [...] Date A-fib ([facility]) Dr. Cody Breast cancer ([facility]) 1998 lobular, left side. Stage I, ER+/ND+/HER2-. Seeing Dr. 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 dxens-fc-1-tld-xtv-houxsvi-ast [phone] mg cap Take 1 tablet by mouth. [...] effusion. Recommend she follow up with her tuckpointer for additional cardiac workup. Red flags for re-assessment reviewed with patient in detail. - ECG COMPLETE - XR CHEST 2V FRONTAL/LAT - CBC + DIFF - NT PRO BNP 2. Hemoptysis - ICD9: 786.30, ICD10: R04.2 Obtain labs as ordered. To go to the ED with recurrent symptoms. Tala Negron MD documented in this encounter [facility] 10-14-2021 History of Present illness Narrative [facility] NAVIGATION OUTREACH Action/FYI Spoke with pt. Pt scheduled to see Dr. Negron today, 10/14/21 for worsening SOB with activity. Pt identified by name and : YES, via phone Outreach Outcome/Action Spoke to patient or caregiver: Patient scheduled Reason for Outreach Community Monitoring Pool Payer: Payor: MEDICARE / Plan: MEDICARE A [...] reported new or worsening sob w/activity via [facility] Spoke to pt, states she was in [place] for 3 weeks where the pollen was [...] made with patient ACTION TAKEN: Based on various exceptionalities teacher, the following disposition is advised: SYMPTOMS PRESENT NOT SEVERE: Visit (Telehealth, Virtual or In Office) with PCP within 48 hours - Routed to [facility]IT[facility] pool [[phone]] - End outreach / Phone Call documented in this encounter [facility] documented as of this encounter (statuses as of 10/09/2021) [facility] History of Past illness Narrative* Problem Noted Date Resolved Date Adenopathy 12/25/2020 03/25/2021 Nausea with vomiting 08/17/2020 08/20/2020 Last Assessment & Plan: Assessment: 200cc bilious emesis 08/16 PLAN: -Protonix 40mg IV daily -Compazine 5mg IV q6hr PRN Primary hypertension 01/20/2017 08/05/2018 A-fib 03/06/2017 HTN (hypertension) 03/06/2017 documented as of this encounter (statuses as of 10/14/2021) [facility] History of Past illness Narrative* Problem Noted Date Resolved Date Adenopathy 12/25/2020 03/25/2021 Nausea with vomiting 08/17/2020 08/20/2020 Last Assessment & Plan: Assessment: 200cc bilious emesis 08/16 PLAN: -Protonix 40mg IV daily -Compazine 5mg IV q6hr PRN Primary hypertension 01/20/2017 08/05/2018 A-fib 03/06/2017 HTN (hypertension) 03/06/2017 documented as of this encounter (statuses as of 10/14/2021) [facility] History of Past illness Narrative* Problem Noted Date Resolved Date Adenopathy 12/25/2020 03/25/2021 Nausea with vomiting 08/17/2020 08/20/2020 Last Assessment & Plan: Assessment: 200cc bilious emesis 08/16 PLAN: -Protonix 40mg IV daily -Compazine 5mg IV q6hr PRN Primary hypertension 01/20/2017 08/05/2018 A-fib 03/06/2017 HTN (hypertension) 03/06/2017 documented as of this encounter (statuses as of 10/17/2021) [facility] History of Past illness Narrative* Problem Noted Date Resolved Date Adenopathy 12/25/2020 03/25/2021 Nausea with vomiting 08/17/2020 08/20/2020 Last Assessment & Plan: Assessment: 200cc bilious emesis 08/16 PLAN: -Protonix 40mg IV daily -Compazine 5mg IV q6hr PRN Primary hypertension 01/20/2017 08/05/2018 A-fib 03/06/2017 HTN (hypertension) 03/06/2017 documented as of this encounter (statuses as of 10/17/2021) [facility] History of Past illness Narrative* Problem Noted Date Resolved Date Adenopathy 12/25/2020 03/25/2021 Nausea with vomiting 08/17/2020 08/20/2020 Last Assessment & Plan: Assessment: 200cc bilious emesis 08/16 PLAN: -Protonix 40mg IV daily -Compazine 5mg IV q6hr PRN Primary hypertension 01/20/2017 08/05/2018 A-fib 03/06/2017 HTN (hypertension) 03/06/2017 documented as of this encounter (statuses as of 10/18/2021) [facility] History of Past illness Narrative* Problem Noted Date Resolved Date Adenopathy 12/25/2020 03/25/2021 Nausea with vomiting 08/17/2020 08/20/2020 Last Assessment & Plan: Assessment: 200cc bilious emesis 08/16 PLAN: -Protonix 40mg IV daily -Compazine 5mg IV q6hr PRN Primary hypertension 01/20/2017 08/05/2018 A-fib 03/06/2017 HTN (hypertension) 03/06/2017 documented as of this encounter (statuses as of 10/28/2021) [facility] History of Past illness Narrative* Problem Noted Date Resolved Date Adenopathy 12/25/2020 03/25/2021 Nausea with vomiting 08/17/2020 08/20/2020 Last Assessment & Plan: Assessment: 200cc bilious emesis 08/16 PLAN: -Protonix 40mg IV daily -Compazine 5mg IV q6hr PRN Primary hypertension 01/20/2017 08/05/2018 A-fib 03/06/2017 HTN (hypertension) 03/06/2017 documented as of this encounter (statuses as of 10/28/2021) [facility] History of Past illness Narrative* Problem Noted Date Resolved Date Adenopathy 12/25/2020 03/25/2021 Nausea with vomiting 08/17/2020 08/20/2020 Last Assessment & Plan: Assessment: 200cc bilious emesis 08/16 PLAN: -Protonix 40mg IV daily -Compazine 5mg IV q6hr PRN Primary hypertension 01/20/2017 08/05/2018 A-fib 03/06/2017 HTN (hypertension) 03/06/2017 documented as of this encounter (statuses as of 10/29/2021) [facility] History of Past illness Narrative* Problem Noted Date Resolved Date Adenopathy 12/25/2020 03/25/2021 Nausea with vomiting 08/17/2020 08/20/2020 Last Assessment & Plan: Assessment: 200cc bilious emesis 08/16 PLAN: -Protonix 40mg IV daily -Compazine 5mg IV q6hr PRN Primary hypertension 01/20/2017 08/05/2018 A-fib 03/06/2017 HTN (hypertension) 03/06/2017 documented as of this encounter (statuses as of 11/07/2021) [facility] History of Past illness Narrative* Problem Noted Date Resolved Date Adenopathy 12/25/2020 03/25/2021 Nausea with vomiting 08/17/2020 08/20/2020 Last Assessment & Plan: Assessment: 200cc bilious emesis 08/16 PLAN: -Protonix 40mg IV daily -Compazine 5mg IV q6hr PRN Primary hypertension 01/20/2017 08/05/2018 A-fib 03/06/2017 HTN (hypertension) 03/06/2017 documented as of this encounter (statuses as of 11/08/2021) [facility] History of Past illness Narrative* Problem Noted Date Resolved Date Adenopathy 12/25/2020 03/25/2021 Nausea with vomiting 08/17/2020 08/20/2020 Last Assessment & Plan: Assessment: 200cc bilious emesis 08/16 PLAN: -Protonix 40mg IV daily -Compazine 5mg IV q6hr PRN Primary hypertension 01/20/2017 08/05/2018 A-fib 03/06/2017 HTN (hypertension) 03/06/2017 documented as of this encounter (statuses as of 11/12/2021) [facility] of Past illness Narrative* Problem Noted Date Resolved Date Adenopathy 12/25/2020 03/25/2021 Nausea with vomiting 08/17/2020 08/20/2020 Last Assessment & Plan: Assessment: 200cc bilious emesis 08/16 PLAN: -Protonix 40mg IV daily -Compazine 5mg IV q6hr PRN Primary hypertension 01/20/2017 08/05/2018 A-fib 03/06/2017 HTN (hypertension) 03/06/2017 documented as of this encounter (statuses as of 11/13/2021) [address]21 History of Past illness Narrative* Problem Noted Date Resolved Date Adenopathy 12/25/2020 03/25/2021 Nausea with vomiting 08/17/2020 08/20/2020 Last Assessment & Plan: Assessment: 200cc bilious emesis 08/16 PLAN: -Protonix 40mg IV daily -Compazine 5mg IV q6hr PRN Primary hypertension 01/20/2017 08/05/2018 A-fib 03/06/2017 HTN (hypertension) 03/06/2017 documented as of this encounter (statuses as of 11/15/2021) [facility] of Past illness Narrative* Problem Noted Date Resolved Date Adenopathy 12/25/2020 03/25/2021 Nausea with vomiting 08/17/2020 08/20/2020 Last Assessment & Plan: Assessment: 200cc bilious emesis 08/16 PLAN: -Protonix 40mg IV daily -Compazine 5mg IV q6hr PRN Primary hypertension 01/20/2017 08/05/2018 A-fib 03/06/2017 HTN (hypertension) 03/06/2017 documented as of this encounter (statuses as of 11/19/2021) [facility] History of Past illness Narrative* Problem Noted Date Resolved Date Adenopathy 12/25/2020 03/25/2021 Nausea with vomiting 08/17/2020 08/20/2020 Last Assessment & Plan: Assessment: 200cc bilious emesis 08/16 PLAN: -Protonix 40mg IV daily -Compazine 5mg IV q6hr PRN Primary hypertension 01/20/2017 08/05/2018 A-fib 03/06/2017 HTN (hypertension) 03/06/2017 documented as of this encounter (statuses as of 11/21/2021) [address]21 History of Past illness Narrative* Problem Noted Date Resolved Date Adenopathy 12/25/2020 03/25/2021 Nausea with vomiting 08/17/2020 08/20/2020 Last Assessment & Plan: Assessment: 200cc bilious emesis 08/16 PLAN: -Protonix 40mg IV daily -Compazine 5mg IV q6hr PRN Primary hypertension 01/20/2017 08/05/2018 A-fib 03/06/2017 HTN (hypertension) 03/06/2017 documented as of this encounter (statuses as of 11/22/2021) [facility] of Past illness Narrative* Problem Noted Date Resolved Date Adenopathy 12/25/2020 03/25/2021 Nausea with vomiting 08/17/2020 08/20/2020 Last Assessment & Plan: Assessment: 200cc bilious emesis 08/16 PLAN: -Protonix 40mg IV daily -Compazine 5mg IV q6hr PRN Primary hypertension 01/20/2017 08/05/2018 A-fib 03/06/2017 HTN (hypertension) 03/06/2017 documented as of this encounter (statuses as of 11/22/2021) [facility] History of Past illness Narrative* Problem Noted Date Resolved Date Adenopathy 12/25/2020 03/25/2021 Nausea with vomiting 08/17/2020 08/20/2020 Last Assessment & Plan: Assessment: 200cc bilious emesis 08/16 PLAN: -Protonix 40mg IV daily -Compazine 5mg IV q6hr PRN Primary hypertension 01/20/2017 08/05/2018 A-fib 03/06/2017 HTN (hypertension) 03/06/2017 documented as of this encounter (statuses as of 11/25/2021) [facility]07-06-2021 History of Past illness Narrative* Problem Noted Date Resolved Date Adenopathy 12/25/2020 03/25/2021 Nausea with vomiting 08/17/2020 08/20/2020 Last Assessment & Plan: Assessment: 200cc bilious emesis 08/16 PLAN: -Protonix 40mg IV daily -Compazine 5mg IV q6hr PRN Primary hypertension 01/20/2017 08/05/2018 A-fib 03/06/2017 HTN (hypertension) 03/06/2017 documented as of this encounter (statuses as of 11/26/2021) [address]-2021 History of Past illness Narrative* Problem Noted Date Resolved Date Adenopathy 12/25/2020 03/25/2021 Nausea with vomiting 08/17/2020 08/20/2020 Last Assessment & Plan: Assessment: 200cc bilious emesis 08/16 PLAN: -Protonix 40mg IV daily -Compazine 5mg IV q6hr PRN Primary hypertension 01/20/2017 08/05/2018 A-fib 03/06/2017 HTN (hypertension) 03/06/2017 documented as of this encounter (statuses as of 11/26/2021) [facility]2021 History of Past illness Narrative* Problem Noted Date Resolved Date Adenopathy 12/25/2020 03/25/2021 Nausea with vomiting 08/17/2020 08/20/2020 Last Assessment & Plan: Assessment: 200cc bilious emesis 08/16 PLAN: -Protonix 40mg IV daily -Compazine 5mg IV q6hr PRN Primary hypertension 01/20/2017 08/05/2018 A-fib 03/06/2017 HTN (hypertension) 03/06/2017 documented as of this encounter (statuses as of 11/29/2021) [facility]2021 History of Past illness Narrative* Problem Noted Date Resolved Date Adenopathy 12/25/2020 03/25/2021 Nausea with vomiting 08/17/2020 08/20/2020 Last Assessment & Plan: Assessment: 200cc bilious emesis 08/16 PLAN: -Protonix 40mg IV daily -Compazine 5mg IV q6hr PRN Primary hypertension 01/20/2017 08/05/2018 A-fib 03/06/2017 HTN (hypertension) 03/06/2017 documented as of this encounter (statuses as of 12/12/2021) [facility]2021 History of Past illness Narrative* Problem Noted Date Resolved Date Adenopathy 12/25/2020 03/25/2021 Nausea with vomiting 08/17/2020 08/20/2020 Last Assessment & Plan: Assessment: 200cc bilious emesis 08/16 PLAN: -Protonix 40mg IV daily -Compazine 5mg IV q6hr PRN Primary hypertension 01/20/2017 08/05/2018 A-fib 03/06/2017 HTN (hypertension) 03/06/2017 documented as of this encounter (statuses as of 12/13/2021) [facility]21 History of Past illness Narrative* Problem Noted Date Resolved Date Adenopathy 12/25/2020 03/25/2021 Nausea with vomiting 08/17/2020 08/20/2020 Last Assessment & Plan: Assessment: 200cc bilious emesis 08/16 PLAN: -Protonix 40mg IV daily -Compazine 5mg IV q6hr PRN Primary hypertension 01/20/2017 08/05/2018 A-fib 03/06/2017 HTN (hypertension) 03/06/2017 documented as of this encounter (statuses as of 12/20/2021) [facility]21 History of Past illness Narrative* Problem Noted Date Resolved Date Adenopathy 12/25/2020 03/25/2021 Nausea with vomiting 08/17/2020 08/20/2020 Last Assessment & Plan: Assessment: 200cc bilious emesis 08/16 PLAN: -Protonix 40mg IV daily -Compazine 5mg IV q6hr PRN Primary hypertension 01/20/2017 08/05/2018 A-fib 03/06/2017 HTN (hypertension) 03/06/2017 documented as of this encounter (statuses as of 12/30/2021) [facility]2021 History of Past illness Narrative* Problem Noted Date Resolved Date Adenopathy 12/25/2020 03/25/2021 Nausea with vomiting 08/17/2020 08/20/2020 Last Assessment & Plan: Assessment: 200cc bilious emesis 08/16 PLAN: -Protonix 40mg IV daily -Compazine 5mg IV q6hr PRN Primary hypertension 01/20/2017 08/05/2018 A-fib 03/06/2017 HTN (hypertension) 03/06/2017 documented as of this encounter (statuses as of 01/06/2022) [facility]2021 History of Past illness Narrative* Problem Noted Date Resolved Date Adenopathy 12/25/2020 03/25/2021 Nausea with vomiting 08/17/2020 08/20/2020 Last Assessment & Plan: Assessment: 200cc bilious emesis 08/16 PLAN: -Protonix 40mg IV daily -Compazine 5mg IV q6hr PRN Primary hypertension 01/20/2017 08/05/2018 A-fib 03/06/2017 HTN (hypertension) 03/06/2017 documented as of this encounter (statuses as of 01/07/2022) [facility]2021 History of Past illness Narrative* Problem Noted Date Resolved Date Adenopathy 12/25/2020 03/25/2021 Nausea with vomiting 08/17/2020 08/20/2020 Last Assessment & Plan: Assessment: 200cc bilious emesis 08/16 PLAN: -Protonix 40mg IV daily -Compazine 5mg IV q6hr PRN Primary hypertension 01/20/2017 08/05/2018 A-fib 03/06/2017 HTN (hypertension) 03/06/2017 documented as of this encounter (statuses as of 02/06/2022) [facility]21 History of Past illness Narrative* Problem Noted Date Resolved Date Adenopathy 12/25/2020 03/25/2021 Nausea with vomiting 08/17/2020 08/20/2020 Last Assessment & Plan: Assessment: 200cc bilious emesis 08/16 PLAN: -Protonix 40mg IV daily -Compazine 5mg IV q6hr PRN Primary hypertension 01/20/2017 08/05/2018 A-fib 03/06/2017 HTN (hypertension) 03/06/2017 documented as of this encounter (statuses as of 02/06/2022) [facility]21 History of Past illness Narrative* Problem Noted Date Resolved Date Adenopathy 12/25/2020 03/25/2021 Nausea with vomiting 08/17/2020 08/20/2020 Last Assessment & Plan: Assessment: 200cc bilious emesis 08/16 PLAN: -Protonix 40mg IV daily -Compazine 5mg IV q6hr PRN Primary hypertension 01/20/2017 08/05/2018 A-fib 03/06/2017 HTN (hypertension) 03/06/2017 documented as of this encounter (statuses as of 02/11/2022) [facility]2021 History of Past illness Narrative* Problem Noted Date Resolved Date Adenopathy 12/25/2020 03/25/2021 Nausea with vomiting 08/17/2020 08/20/2020 Last Assessment & Plan: Assessment: 200cc bilious emesis 08/16 PLAN: -Protonix 40mg IV daily -Compazine 5mg IV q6hr PRN Primary hypertension 01/20/2017 08/05/2018 A-fib 03/06/2017 HTN (hypertension) 03/06/2017 documented as of this encounter (statuses as of 02/14/2022) [facility] History of Past illness Narrative* Problem Noted Date Resolved Date Adenopathy 12/25/2020 03/25/2021 Nausea with vomiting 08/17/2020 08/20/2020 Last Assessment & Plan: Assessment: 200cc bilious emesis 08/16 PLAN: -Protonix 40mg IV daily -Compazine 5mg IV q6hr PRN Primary hypertension 01/20/2017 08/05/2018 A-fib 03/06/2017 HTN (hypertension) 03/06/2017 documented as of this encounter (statuses as of 02/16/2022) [facility]2021 History of Past illness Narrative* Problem Noted Date Resolved Date Adenopathy 12/25/2020 03/25/2021 Nausea with vomiting 08/17/2020 08/20/2020 Last Assessment & Plan: Assessment: 200cc bilious emesis 08/16 PLAN: -Protonix 40mg IV daily -Compazine 5mg IV q6hr PRN Primary hypertension 01/20/2017 08/05/2018 A-fib 03/06/2017 HTN (hypertension) 03/06/2017 documented as of this encounter (statuses as of 02/17/2022) [place] [address]-06-2021 History of Past illness Narrative* Problem Noted Date Resolved Date Adenopathy 12/25/2020 03/25/2021 Nausea with vomiting 08/17/2020 08/20/2020 Last Assessment & Plan: Assessment: 200cc bilious emesis 08/16 PLAN: -Protonix 40mg IV daily -Compazine 5mg IV q6hr PRN Primary hypertension 01/20/2017 08/05/2018 A-fib 03/06/2017 HTN (hypertension) 03/06/2017 documented as of this encounter (statuses as of 02/18/2022) [address]06-2021 History of Past illness Narrative* Problem Noted Date Resolved Date Adenopathy 12/25/2020 03/25/2021 Nausea with vomiting 08/17/2020 08/20/2020 Last Assessment & Plan: Assessment: 200cc bilious emesis 08/16 PLAN: -Protonix 40mg IV daily -Compazine 5mg IV q6hr PRN Primary hypertension 01/20/2017 08/05/2018 A-fib 03/06/2017 HTN (hypertension) 03/06/2017 documented as of this encounter (statuses as of 02/28/2022) [address]-2021 History of Past illness Narrative* Problem Noted Date Resolved Date Adenopathy 12/25/2020 03/25/2021 Nausea with vomiting 08/17/2020 08/20/2020 Last Assessment & Plan: Assessment: 200cc bilious emesis 08/16 PLAN: -Protonix 40mg IV daily -Compazine 5mg IV q6hr PRN Primary hypertension 01/20/2017 08/05/2018 A-fib 03/06/2017 HTN (hypertension) 03/06/2017 documented as of this encounter (statuses as of 03/12/2022) [facility] History of Past illness Narrative* Problem Noted Date Resolved Date Adenopathy 12/25/2020 03/25/2021 Nausea with vomiting 08/17/2020 08/20/2020 Last Assessment & Plan: Assessment: 200cc bilious emesis 08/16 PLAN: -Protonix 40mg IV daily -Compazine 5mg IV q6hr PRN Primary hypertension 01/20/2017 08/05/2018 A-fib 03/06/2017 HTN (hypertension) 03/06/2017 documented as of this encounter (statuses as of 03/18/2022) [facility]21 History of Past illness Narrative* Problem Noted Date Resolved Date Adenopathy 12/25/2020 03/25/2021 Nausea with vomiting 08/17/2020 08/20/2020 Last Assessment & Plan: Assessment: 200cc bilious emesis 08/16 PLAN: -Protonix 40mg IV daily -Compazine 5mg IV q6hr PRN Primary hypertension 01/20/2017 08/05/2018 A-fib 03/06/2017 HTN (hypertension) 03/06/2017 documented as of this encounter (statuses as of 03/21/2022) [facility]21 History of Past illness Narrative* Problem Noted Date Resolved Date Adenopathy 12/25/2020 03/25/2021 Nausea with vomiting 08/17/2020 08/20/2020 Last Assessment & Plan: Assessment: 200cc bilious emesis 08/16 PLAN: -Protonix 40mg IV daily -Compazine 5mg IV q6hr PRN Primary hypertension 01/20/2017 08/05/2018 A-fib 03/06/2017 HTN (hypertension) 03/06/2017 documented as of this encounter (statuses as of 05/21/2022) [facility]21 History of Past illness Narrative* Problem Noted Date Resolved Date Adenopathy 12/25/2020 03/25/2021 Nausea with vomiting 08/17/2020 08/20/2020 Last Assessment & Plan: Assessment: 200cc bilious emesis 08/16 PLAN: -Protonix 40mg IV daily -Compazine 5mg IV q6hr PRN Primary hypertension 01/20/2017 08/05/2018 A-fib 03/06/2017 HTN (hypertension) 03/06/2017 documented as of this encounter (statuses as of 05/23/2022) [facility]21 History of Past illness Narrative* Problem Noted Date Resolved Date Adenopathy 12/25/2020 03/25/2021 Nausea with vomiting 08/17/2020 08/20/2020 Last Assessment & Plan: Assessment: 200cc bilious emesis 08/16 PLAN: -Protonix 40mg IV daily -Compazine 5mg IV q6hr PRN Primary hypertension 01/20/2017 08/05/2018 A-fib 03/06/2017 HTN (hypertension) 03/06/2017 documented as of this encounter (statuses as of 05/26/2022) [facility] History of Past illness Narrative* Problem Noted Date Resolved Date Adenopathy 12/25/2020 03/25/2021 Nausea with vomiting 08/17/2020 08/20/2020 Last Assessment & Plan: Assessment: 200cc bilious emesis 08/16 PLAN: -Protonix 40mg IV daily -Compazine 5mg IV q6hr PRN Primary hypertension 01/20/2017 08/05/2018 A-fib 03/06/2017 HTN (hypertension) 03/06/2017 documented as of this encounter (statuses as of 05/26/2022) [facility] History of Past illness Narrative* Problem Noted Date Resolved Date Adenopathy 12/25/2020 03/25/2021 Nausea with vomiting 08/17/2020 08/20/2020 Last Assessment & Plan: Assessment: 200cc bilious emesis 08/16 PLAN: -Protonix 40mg IV daily -Compazine 5mg IV q6hr PRN Primary hypertension 01/20/2017 08/05/2018 A-fib 03/06/2017 HTN (hypertension) 03/06/2017 documented as of this encounter (statuses as of 06/10/2022) [facility] History of Past illness Narrative* Problem Noted Date Resolved Date Adenopathy 12/25/2020 03/25/2021 Nausea with vomiting 08/17/2020 08/20/2020 Last Assessment & Plan: Assessment: 200cc bilious emesis 08/16 PLAN: -Protonix 40mg IV daily -Compazine 5mg IV q6hr PRN Primary hypertension 01/20/2017 08/05/2018 A-fib 03/06/2017 HTN (hypertension) 03/06/2017 documented as of this encounter (statuses as of 07/02/2022) [facility]21 History of Past illness Narrative* Problem Noted Date Resolved Date Adenopathy 12/25/2020 03/25/2021 Nausea with vomiting 08/17/2020 08/20/2020 Last Assessment & Plan: Assessment: 200cc bilious emesis 08/16 PLAN: -Protonix 40mg IV daily -Compazine 5mg IV q6hr PRN Primary hypertension 01/20/2017 08/05/2018 A-fib 03/06/2017 HTN (hypertension) 03/06/2017 documented as of this encounter (statuses as of 07/07/2022) [facility] History of Past illness Narrative* Problem Noted Date Resolved Date Adenopathy 12/25/2020 03/25/2021 Nausea with vomiting 08/17/2020 08/20/2020 Last Assessment & Plan: Assessment: 200cc bilious emesis 08/16 PLAN: -Protonix 40mg IV daily -Compazine 5mg IV q6hr PRN Primary hypertension 01/20/2017 08/05/2018 A-fib 03/06/2017 HTN (hypertension) 03/06/2017 documented as of this encounter (statuses as of 07/08/2022) [facility] History of Past illness Narrative* Problem Noted Date Resolved Date Adenopathy 12/25/2020 03/25/2021 Nausea with vomiting 08/17/2020 08/20/2020 Last Assessment & Plan: Assessment: 200cc bilious emesis 08/16 PLAN: -Protonix 40mg IV daily -Compazine 5mg IV q6hr PRN Primary hypertension 01/20/2017 08/05/2018 A-fib 03/06/2017 HTN (hypertension) 03/06/2017 documented as of this encounter (statuses as of 07/11/2022) [facility] History of Past illness Narrative* Problem Noted Date Resolved Date Adenopathy 12/25/2020 03/25/2021 Nausea with vomiting 08/17/2020 08/20/2020 Last Assessment & Plan: Assessment: 200cc bilious emesis 08/16 PLAN: -Protonix 40mg IV daily -Compazine 5mg IV q6hr PRN Primary hypertension 01/20/2017 08/05/2018 A-fib 03/06/2017 HTN (hypertension) 03/06/2017 documented as of this encounter (statuses as of 07/22/2022) [facility] History of Past illness Narrative* Problem Noted Date Resolved Date Adenopathy 12/25/2020 03/25/2021 Nausea with vomiting 08/17/2020 08/20/2020 Last Assessment & Plan: Assessment: 200cc bilious emesis 08/16 PLAN: -Protonix 40mg IV daily -Compazine 5mg IV q6hr PRN Primary hypertension 01/20/2017 08/05/2018 A-fib 03/06/2017 HTN (hypertension) 03/06/2017 documented as of this encounter (statuses as of 07/28/2022) [facility] History of Past illness Narrative* Problem Noted Date Resolved Date Adenopathy 12/25/2020 03/25/2021 Nausea with vomiting 08/17/2020 08/20/2020 Last Assessment & Plan: Assessment: 200cc bilious emesis 08/16 PLAN: -Protonix 40mg IV daily -Compazine 5mg IV q6hr PRN Primary hypertension 01/20/2017 08/05/2018 A-fib 03/06/2017 HTN (hypertension) 03/06/2017 documented as of this encounter (statuses as of 07/30/2022) [facility] History of Past illness Narrative* Problem Noted Date Resolved Date Adenopathy 12/25/2020 03/25/2021 Nausea with vomiting 08/17/2020 08/20/2020 Last Assessment & Plan: Assessment: 200cc bilious emesis 08/16 PLAN: -Protonix 40mg IV daily -Compazine 5mg IV q6hr PRN Primary hypertension 01/20/2017 08/05/2018 A-fib 03/06/2017 HTN (hypertension) 03/06/2017 documented as of this encounter (statuses as of 08/05/2022) [facility] History of Past illness Narrative* Problem Noted Date Resolved Date Adenopathy 12/25/2020 03/25/2021 Nausea with vomiting 08/17/2020 08/20/2020 Last Assessment & Plan: Assessment: 200cc bilious emesis 08/16 PLAN: -Protonix 40mg IV daily -Compazine 5mg IV q6hr PRN Primary hypertension 01/20/2017 08/05/2018 A-fib 03/06/2017 HTN (hypertension) 03/06/2017 documented as of this encounter (statuses as of 08/07/2022) [facility] History of Past illness Narrative* Problem Noted Date Resolved Date Adenopathy 12/25/2020 03/25/2021 Nausea with vomiting 08/17/2020 08/20/2020 Last Assessment & Plan: Assessment: 200cc bilious emesis 08/16 PLAN: -Protonix 40mg IV daily -Compazine 5mg IV q6hr PRN Primary hypertension 01/20/2017 08/05/2018 A-fib 03/06/2017 HTN (hypertension) 03/06/2017 documented as of this encounter (statuses as of 08/08/2022) [facility] History of Past illness Narrative* Problem Noted Date Resolved Date Adenopathy 12/25/2020 03/25/2021 Nausea with vomiting 08/17/2020 08/20/2020 Last Assessment & Plan: Assessment: 200cc bilious emesis 08/16 PLAN: -Protonix 40mg IV daily -Compazine 5mg IV q6hr PRN Primary hypertension 01/20/2017 08/05/2018 A-fib 03/06/2017 HTN (hypertension) 03/06/2017 documented as of this encounter (statuses as of 08/11/2022) [facility] History of Past illness Narrative* Problem Noted Date Resolved Date Adenopathy 12/25/2020 03/25/2021 Nausea with vomiting 08/17/2020 08/20/2020 Last Assessment & Plan: Assessment: 200cc bilious emesis 08/16 PLAN: -Protonix 40mg IV daily -Compazine 5mg IV q6hr PRN Primary hypertension 01/20/2017 08/05/2018 A-fib 03/06/2017 HTN (hypertension) 03/06/2017 documented as of this encounter (statuses as of 08/12/2022) [facility] History of Past illness Narrative* Problem Noted Date Resolved Date Adenopathy 12/25/2020 03/25/2021 Nausea with vomiting 08/17/2020 08/20/2020 Last Assessment & Plan: Assessment: 200cc bilious emesis 08/16 PLAN: -Protonix 40mg IV daily -Compazine 5mg IV q6hr PRN Primary hypertension 01/20/2017 08/05/2018 A-fib 03/06/2017 HTN (hypertension) 03/06/2017 documented as of this encounter (statuses as of 08/12/2022) [facility] History of Past illness Narrative* Problem Noted Date Resolved Date Adenopathy 12/25/2020 03/25/2021 Nausea with vomiting 08/17/2020 08/20/2020 Last Assessment & Plan: Assessment: 200cc bilious emesis 08/16 PLAN: -Protonix 40mg IV daily -Compazine 5mg IV q6hr PRN Primary hypertension 01/20/2017 08/05/2018 A-fib 03/06/2017 HTN (hypertension) 03/06/2017 documented as of this encounter (statuses as of 08/15/2022) [facility] History of Past illness Narrative* Problem Noted Date Resolved Date Adenopathy 12/25/2020 03/25/2021 Nausea with vomiting 08/17/2020 08/20/2020 Last Assessment & Plan: Assessment: 200cc bilious emesis 08/16 PLAN: -Protonix 40mg IV daily -Compazine 5mg IV q6hr PRN Primary hypertension 01/20/2017 08/05/2018 A-fib 03/06/2017 HTN (hypertension) 03/06/2017 documented as of this encounter (statuses as of 08/18/2022) [facility] History of Past illness Narrative* Problem Noted Date Resolved Date Adenopathy 12/25/2020 03/25/2021 Nausea with vomiting 08/17/2020 08/20/2020 Last Assessment & Plan: Assessment: 200cc bilious emesis 08/16 PLAN: -Protonix 40mg IV daily -Compazine 5mg IV q6hr PRN Primary hypertension 01/20/2017 08/05/2018 A-fib 03/06/2017 HTN (hypertension) 03/06/2017 documented as of this encounter (statuses as of 08/20/2022) [facility] History of Past illness Narrative* Problem Noted Date Resolved Date Adenopathy 12/25/2020 03/25/2021 Nausea with vomiting 08/17/2020 08/20/2020 Last Assessment & Plan: Assessment: 200cc bilious emesis 08/16 PLAN: -Protonix 40mg IV daily -Compazine 5mg IV q6hr PRN Primary hypertension 01/20/2017 08/05/2018 A-fib 03/06/2017 HTN (hypertension) 03/06/2017 documented as of this encounter (statuses as of 08/20/2022) [facility] History of Past illness Narrative* Problem Noted Date Resolved Date Adenopathy 12/25/2020 03/25/2021 Nausea with vomiting 08/17/2020 08/20/2020 Last Assessment & Plan: Assessment: 200cc bilious emesis 08/16 PLAN: -Protonix 40mg IV daily -Compazine 5mg IV q6hr PRN Primary hypertension 01/20/2017 08/05/2018 A-fib 03/06/2017 HTN (hypertension) 03/06/2017 documented as of this encounter (statuses as of 08/21/2022) [facility] History of Past illness Narrative* Problem Noted Date Resolved Date Adenopathy 12/25/2020 03/25/2021 Nausea with vomiting 08/17/2020 08/20/2020 Last Assessment & Plan: Assessment: 200cc bilious emesis 08/16 PLAN: -Protonix 40mg IV daily -Compazine 5mg IV q6hr PRN Primary hypertension 01/20/2017 08/05/2018 A-fib 03/06/2017 HTN (hypertension) 03/06/2017 documented as of this encounter (statuses as of 09/05/2022) [facility] History of Past illness Narrative* Problem Noted Date Resolved Date Adenopathy 12/25/2020 03/25/2021 Nausea with vomiting 08/17/2020 08/20/2020 Last Assessment & Plan: Assessment: 200cc bilious emesis 08/16 PLAN: -Protonix 40mg IV daily -Compazine 5mg IV q6hr PRN Primary hypertension 01/20/2017 08/05/2018 A-fib 03/06/2017 HTN (hypertension) 03/06/2017 documented as of this encounter (statuses as of 09/11/2022) [facility] History of Past illness Narrative* Problem Noted Date Resolved Date Adenopathy 12/25/2020 03/25/2021 Nausea with vomiting 08/17/2020 08/20/2020 Last Assessment & Plan: Assessment: 200cc bilious emesis 08/16 PLAN: -Protonix 40mg IV daily -Compazine 5mg IV q6hr PRN Primary hypertension 01/20/2017 08/05/2018 A-fib 03/06/2017 HTN (hypertension) 03/06/2017 documented as of this encounter (statuses as of 09/23/2022) [facility] History of Past illness Narrative* Problem Noted Date Resolved Date Adenopathy 12/25/2020 03/25/2021 Nausea with vomiting 08/17/2020 08/20/2020 Last Assessment & Plan: Assessment: 200cc bilious emesis 08/16 PLAN: -Protonix 40mg IV daily -Compazine 5mg IV q6hr PRN Primary hypertension 01/20/2017 08/05/2018 A-fib 03/06/2017 HTN (hypertension) 03/06/2017 documented as of this encounter (statuses as of 09/26/2022) [facility] History of Past illness Narrative* Problem Noted Date Resolved Date Adenopathy 12/25/2020 03/25/2021 Nausea with vomiting 08/17/2020 08/20/2020 Last Assessment & Plan: Assessment: 200cc bilious emesis 08/16 PLAN: -Protonix 40mg IV daily -Compazine 5mg IV q6hr PRN Primary hypertension 01/20/2017 08/05/2018 A-fib 03/06/2017 HTN (hypertension) 03/06/2017 documented as of this encounter (statuses as of 10/01/2022) [facility] History of Past illness Narrative* Problem Noted Date Resolved Date Adenopathy 12/25/2020 03/25/2021 Nausea with vomiting 08/17/2020 08/20/2020 Last Assessment & Plan: Assessment: 200cc bilious emesis 08/16 PLAN: -Protonix 40mg IV daily -Compazine 5mg IV q6hr PRN Primary hypertension 01/20/2017 08/05/2018 A-fib 03/06/2017 HTN (hypertension) 03/06/2017 documented as of this encounter (statuses as of 10/02/2022) [facility] History of Past illness Narrative* Problem Noted Date Resolved Date Adenopathy 12/25/2020 03/25/2021 Nausea with vomiting 08/17/2020 08/20/2020 Last Assessment & Plan: Assessment: 200cc bilious emesis 08/16 PLAN: -Protonix 40mg IV daily -Compazine 5mg IV q6hr PRN Primary hypertension 01/20/2017 08/05/2018 A-fib 03/06/2017 HTN (hypertension) 03/06/2017 documented as of this encounter (statuses as of 10/02/2022) [facility] History of Past illness Narrative* Problem Noted Date Resolved Date Adenopathy 12/25/2020 03/25/2021 Nausea with vomiting 08/17/2020 08/20/2020 Last Assessment & Plan: Assessment: 200cc bilious emesis 08/16 PLAN: -Protonix 40mg IV daily -Compazine 5mg IV q6hr PRN Primary hypertension 01/20/2017 08/05/2018 A-fib 03/06/2017 HTN (hypertension) 03/06/2017 documented as of this encounter (statuses as of 10/04/2022) [facility] History of Past illness Narrative* Problem Noted Date Resolved Date Adenopathy 12/25/2020 03/25/2021 Nausea with vomiting 08/17/2020 08/20/2020 Last Assessment & Plan: Assessment: 200cc bilious emesis 08/16 PLAN: -Protonix 40mg IV daily -Compazine 5mg IV q6hr PRN Primary hypertension 01/20/2017 08/05/2018 A-fib 03/06/2017 HTN (hypertension) 03/06/2017 documented as of this encounter (statuses as of 10/07/2022) [facility] of Past illness Narrative* Problem Noted Date Resolved Date Adenopathy 12/25/2020 03/25/2021 Nausea with vomiting 08/17/2020 08/20/2020 Last Assessment & Plan: Assessment: 200cc bilious emesis 08/16 PLAN: -Protonix 40mg IV daily -Compazine 5mg IV q6hr PRN Primary hypertension 01/20/2017 08/05/2018 A-fib 03/06/2017 HTN (hypertension) 03/06/2017 documented as of this encounter (statuses as of 10/08/2022) [facility] History of Past illness Narrative* Problem Noted Date Resolved Date Adenopathy 12/25/2020 03/25/2021 Nausea with vomiting 08/17/2020 08/20/2020 Last Assessment & Plan: Assessment: 200cc bilious emesis 08/16 PLAN: -Protonix 40mg IV daily -Compazine 5mg IV q6hr PRN Primary hypertension 01/20/2017 08/05/2018 A-fib 03/06/2017 HTN (hypertension) 03/06/2017 documented as of this encounter (statuses as of 10/14/2022) [facility] History of Past illness Narrative* Problem Noted Date Resolved Date Adenopathy 12/25/2020 03/25/2021 Nausea with vomiting 08/17/2020 08/20/2020 Last Assessment & Plan: Assessment: 200cc bilious emesis 08/16 PLAN: -Protonix 40mg IV daily -Compazine 5mg IV q6hr PRN Primary hypertension 01/20/2017 08/05/2018 A-fib 03/06/2017 HTN (hypertension) 03/06/2017 documented as of this encounter (statuses as of 10/15/2022) [facility] History of Past illness Narrative* Problem Noted Date Resolved Date Adenopathy 12/25/2020 03/25/2021 Nausea with vomiting 08/17/2020 08/20/2020 Last Assessment & Plan: Assessment: 200cc bilious emesis 08/16 PLAN: -Protonix 40mg IV daily -Compazine 5mg IV q6hr PRN Primary hypertension 01/20/2017 08/05/2018 A-fib 03/06/2017 HTN (hypertension) 03/06/2017 documented as of this encounter (statuses as of 10/16/2022) [facility] History of Past illness Narrative* Problem Noted Date Resolved Date Adenopathy 12/25/2020 03/25/2021 Nausea with vomiting 08/17/2020 08/20/2020 Last Assessment & Plan: Assessment: 200cc bilious emesis 08/16 PLAN: -Protonix 40mg IV daily -Compazine 5mg IV q6hr PRN Primary hypertension 01/20/2017 08/05/2018 A-fib 03/06/2017 HTN (hypertension) 03/06/2017 documented as of this encounter (statuses as of 10/16/2022) [facility] History of Past illness Narrative* Problem Noted Date Resolved Date Adenopathy 12/25/2020 03/25/2021 Nausea with vomiting 08/17/2020 08/20/2020 Last Assessment & Plan: Assessment: 200cc bilious emesis 08/16 PLAN: -Protonix 40mg IV daily -Compazine 5mg IV q6hr PRN Primary hypertension 01/20/2017 08/05/2018 A-fib 03/06/2017 HTN (hypertension) 03/06/2017 documented as of this encounter (statuses as of 10/16/2022) [facility] History of Past illness Narrative* Problem Noted Date Resolved Date Adenopathy 12/25/2020 03/25/2021 Nausea with vomiting 08/17/2020 08/20/2020 Last Assessment & Plan: Assessment: 200cc bilious emesis 08/16 PLAN: -Protonix 40mg IV daily -Compazine 5mg IV q6hr PRN Primary hypertension 01/20/2017 08/05/2018 A-fib 03/06/2017 HTN (hypertension) 03/06/2017 documented as of this encounter (statuses as of 11/19/2022) [facility] History of Past illness Narrative* Problem Noted Date Resolved Date Adenopathy 12/25/2020 03/25/2021 Nausea with vomiting 08/17/2020 08/20/2020 Last Assessment & Plan: Assessment: 200cc bilious emesis 08/16 PLAN: -Protonix 40mg IV daily -Compazine 5mg IV q6hr PRN Primary hypertension 01/20/2017 08/05/2018 A-fib 03/06/2017 HTN (hypertension) 03/06/2017 documented as of this encounter (statuses as of 12/03/2022) [facility] History of Past illness Narrative* Problem Noted Date Resolved Date Adenopathy 12/25/2020 03/25/2021 Nausea with vomiting 08/17/2020 08/20/2020 Last Assessment & Plan: Assessment: 200cc bilious emesis 08/16 PLAN: -Protonix 40mg IV daily -Compazine 5mg IV q6hr PRN Primary hypertension 01/20/2017 08/05/2018 A-fib 03/06/2017 HTN (hypertension) 03/06/2017 documented as of this encounter (statuses as of 12/11/2022) [facility] History of Past illness Narrative* Problem Noted Date Resolved Date Adenopathy 12/25/2020 03/25/2021 Nausea with vomiting 08/17/2020 08/20/2020 Last Assessment & Plan: Assessment: 200cc bilious emesis 08/16 PLAN: -Protonix 40mg IV daily -Compazine 5mg IV q6hr PRN Primary hypertension 01/20/2017 08/05/2018 A-fib 03/06/2017 HTN (hypertension) 03/06/2017 documented as of this encounter (statuses as of 12/12/2022) [facility] History of Past illness Narrative* Problem Noted Date Diagnosed Date Resolved Date Adenopathy 12/25/2020 03/25/2021 Nausea with vomiting 08/17/2020 021 Last Assessment & Plan: Assessment: 200cc bilious emesis 08/16 PLAN: -Protonix 40mg IV daily -Compazine 5mg IV q6hr PRN Primary hypertension 01/20/2017 019 A-fib 03/06/2017 HTN (hypertension) 7 documented as of this encounter (statuses as of 01/08/2023) [facility] History of Past illness Narrative* Problem Noted Date Diagnosed Date Resolved Date Adenopathy 12/25/2020 03/25/2021 Nausea with vomiting 08/17/2020 021 Last Assessment & Plan: Assessment: 200cc bilious emesis 08/16 PLAN: -Protonix 40mg IV daily -Compazine 5mg IV q6hr PRN Primary hypertension 01/20/2017 019 A-fib 03/06/2017 HTN (hypertension) 7 documented as of this encounter (statuses as of 02/01/2023) [facility] History of Past illness Narrative* Problem Noted Date Diagnosed Date Resolved Date Adenopathy 12/25/2020 03/25/2021 Nausea with vomiting 08/17/2020 021 Last Assessment & Plan: Assessment: 200cc bilious emesis 08/16 PLAN: -Protonix 40mg IV daily -Compazine 5mg IV q6hr PRN Primary hypertension 01/20/2017 019 A-fib 03/06/2017 HTN (hypertension) 7 documented as of this encounter (statuses as of 02/03/2023) [facility] History of Past illness Narrative* Problem Noted Date Diagnosed Date Resolved Date Adenopathy 12/25/2020 03/25/2021 Nausea with vomiting 08/17/2020 021 Last Assessment & Plan: Assessment: 200cc bilious emesis 08/16 PLAN: -Protonix 40mg IV daily -Compazine 5mg IV q6hr PRN Primary hypertension 01/20/2017 019 A-fib 03/06/2017 HTN (hypertension) 7 documented as of this encounter (statuses as of 02/13/2023) [facility] History of Past illness Narrative* Problem Noted Date Diagnosed Date Resolved Date Adenopathy 12/25/2020 03/25/2021 Nausea with vomiting 08/17/2020 021 Last Assessment & Plan: Assessment: 200cc bilious emesis 08/16 PLAN: -Protonix 40mg IV daily -Compazine 5mg IV q6hr PRN Primary hypertension 01/20/2017 019 A-fib 03/06/2017 HTN (hypertension) 7 documented as of this encounter (statuses as of 02/16/2023) [facility] History of Past illness Narrative* Problem Noted Date Diagnosed Date Resolved Date Adenopathy 12/25/2020 03/25/2021 Nausea with vomiting 08/17/2020 021 Last Assessment & Plan: Assessment: 200cc bilious emesis 08/16 PLAN: -Protonix 40mg IV daily -Compazine 5mg IV q6hr PRN Primary hypertension 01/20/2017 019 A-fib 03/06/2017 HTN (hypertension) 7 documented as of this encounter (statuses as of 02/25/2023) [facility] History of Past illness Narrative* Problem Noted Date Diagnosed Date Resolved Date Adenopathy 12/25/2020 03/25/2021 Nausea with vomiting 08/17/2020 021 Last Assessment & Plan: Assessment: 200cc bilious emesis 08/16 PLAN: -Protonix 40mg IV daily -Compazine 5mg IV q6hr PRN Primary hypertension 01/20/2017 019 A-fib 03/06/2017 HTN (hypertension) 7 documented as of this encounter (statuses as of 02/27/2023) [facility] History of Past illness Narrative* Problem Noted Date Diagnosed Date Resolved Date Adenopathy 12/25/2020 03/25/2021 Nausea with vomiting 08/17/2020 021 Last Assessment & Plan: Assessment: 200cc bilious emesis 08/16 PLAN: -Protonix 40mg IV daily -Compazine 5mg IV q6hr PRN Primary hypertension 01/20/2017 019 A-fib 03/06/2017 HTN (hypertension) 7 documented as of this encounter (statuses as of 03/12/2023) [facility] History of Past illness Narrative* Problem Noted Date Diagnosed Date Resolved Date Adenopathy 12/25/2020 03/25/2021 Nausea with vomiting 08/17/2020 021 Last Assessment & Plan: Assessment: 200cc bilious emesis 08/16 PLAN: -Protonix 40mg IV daily -Compazine 5mg IV q6hr PRN Primary hypertension 01/20/2017 019 A-fib 03/06/2017 HTN (hypertension) 7 documented as of this encounter (statuses as of 03/16/2023) [facility] History of Past illness Narrative* Problem Noted Date Diagnosed Date Resolved Date Adenopathy 12/25/2020 03/25/2021 Nausea with vomiting 08/17/2020 021 Last Assessment & Plan: Assessment: 200cc bilious emesis 08/16 PLAN: -Protonix 40mg IV daily -Compazine 5mg IV q6hr PRN Primary hypertension 01/20/2017 019 A-fib 03/06/2017 HTN (hypertension) 7 documented as of this encounter (statuses as of 03/19/2023) [facility] History of Past illness Narrative* Problem Noted Date Diagnosed Date Resolved Date Adenopathy 12/25/2020 03/25/2021 Nausea with vomiting 08/17/2020 021 Last Assessment & Plan: Assessment: 200cc bilious emesis 08/16 PLAN: -Protonix 40mg IV daily -Compazine 5mg IV q6hr PRN Primary hypertension 01/20/2017 019 A-fib 03/06/2017 HTN (hypertension) 7 documented as of this encounter (statuses as of 03/31/2023) [facility] History of Past illness Narrative* Problem Noted Date Diagnosed Date Resolved Date Adenopathy 12/25/2020 03/25/2021 Nausea with vomiting 08/17/2020 021 Last Assessment & Plan: Assessment: 200cc bilious emesis 08/16 PLAN: -Protonix 40mg IV daily -Compazine 5mg IV q6hr PRN Primary hypertension 01/20/2017 019 A-fib 03/06/2017 HTN (hypertension) 7 documented as of this encounter (statuses as of 04/02/2023) [facility] History of Past illness Narrative* Problem Noted Date Diagnosed Date Resolved Date Adenopathy 12/25/2020 03/25/2021 Nausea with vomiting 08/17/2020 021 Last Assessment & Plan: Assessment: 200cc bilious emesis 08/16 PLAN: -Protonix 40mg IV daily -Compazine 5mg IV q6hr PRN Primary hypertension 01/20/2017 019 A-fib 03/06/2017 HTN (hypertension) 7 documented as of this encounter (statuses as of 04/07/2023) [facility] History of Past illness Narrative* Problem Noted Date Diagnosed Date Resolved Date Adenopathy 12/25/2020 03/25/2021 Nausea with vomiting 08/17/2020 021 Last Assessment & Plan: Assessment: 200cc bilious emesis 08/16 PLAN: -Protonix 40mg IV daily -Compazine 5mg IV q6hr PRN Primary hypertension 01/20/2017 019 A-fib 03/06/2017 HTN (hypertension) 7 documented as of this encounter (statuses as of 04/07/2023) [facility] History of Past illness Narrative* Problem Noted Date Diagnosed Date Resolved Date Adenopathy 12/25/2020 03/25/2021 Nausea with vomiting 08/17/2020 021 Last Assessment & Plan: Assessment: 200cc bilious emesis 08/16 PLAN: -Protonix 40mg IV daily -Compazine 5mg IV q6hr PRN Primary hypertension 01/20/2017 019 A-fib 03/06/2017 HTN (hypertension) 7 documented as of this encounter (statuses as of 04/07/2023) [facility] History of Past illness Narrative* Problem Noted Date Diagnosed Date Resolved Date Adenopathy 12/25/2020 03/25/2021 Nausea with vomiting 08/17/2020 021 Last Assessment & Plan: Assessment: 200cc bilious emesis 08/16 PLAN: -Protonix 40mg IV daily -Compazine 5mg IV q6hr PRN Primary hypertension 01/20/2017 019 A-fib 03/06/2017 HTN (hypertension) 7 documented as of this encounter (statuses as of 04/14/2023) [facility] History of Past illness Narrative* Problem Noted Date Diagnosed Date Resolved Date Adenopathy 12/25/2020 03/25/2021 Nausea with vomiting 08/17/2020 021 Last Assessment & Plan: Assessment: 200cc bilious emesis 08/16 PLAN: -Protonix 40mg IV daily -Compazine 5mg IV q6hr PRN Primary hypertension 01/20/2017 019 A-fib 03/06/2017 HTN (hypertension) 7 documented as of this encounter (statuses as of 04/14/2023) [facility] History of Past illness Narrative* Problem Noted Date Diagnosed Date Resolved Date Adenopathy 12/25/2020 03/25/2021 Nausea with vomiting 08/17/2020 021 Last Assessment & Plan: Assessment: 200cc bilious emesis 08/16 PLAN: -Protonix 40mg IV daily -Compazine 5mg IV q6hr PRN Primary hypertension 01/20/2017 019 A-fib 03/06/2017 HTN (hypertension) 7 documented as of this encounter (statuses as of 04/14/2023) [facility] History of Past illness Narrative* Problem Noted Date Diagnosed Date Resolved Date Adenopathy 12/25/2020 03/25/2021 Nausea with vomiting 08/17/2020 021 Last Assessment & Plan: Assessment: 200cc bilious emesis 08/16 PLAN: -Protonix 40mg IV daily -Compazine 5mg IV q6hr PRN Primary hypertension 01/20/2017 019 A-fib 03/06/2017 HTN (hypertension) 7 documented as of this encounter (statuses as of 04/15/2023) [facility] History of Past illness Narrative* Problem Noted Date Diagnosed Date Resolved Date Adenopathy 12/25/2020 03/25/2021 Nausea with vomiting 08/17/2020 021 Last Assessment & Plan: Assessment: 200cc bilious emesis 08/16 PLAN: -Protonix 40mg IV daily -Compazine 5mg IV q6hr PRN Primary hypertension 01/20/2017 019 A-fib 03/06/2017 HTN (hypertension) 7 documented as of this encounter (statuses as of 04/16/2023) [facility] History of Past illness Narrative* Problem Noted Date Diagnosed Date Resolved Date Adenopathy 12/25/2020 03/25/2021 Nausea with vomiting 08/17/2020 021 Last Assessment & Plan: Assessment: 200cc bilious emesis 08/16 PLAN: -Protonix 40mg IV daily -Compazine 5mg IV q6hr PRN Primary hypertension 01/20/2017 019 A-fib 03/06/2017 HTN (hypertension) 7 documented as of this encounter (statuses as of 04/17/2023) [facility] History of Past illness Narrative* Problem Noted Date Diagnosed Date Resolved Date Adenopathy 12/25/2020 03/25/2021 Nausea with vomiting 08/17/2020 021 Last Assessment & Plan: Assessment: 200cc bilious emesis 08/16 PLAN: -Protonix 40mg IV daily -Compazine 5mg IV q6hr PRN Primary hypertension 01/20/2017 019 A-fib 03/06/2017 HTN (hypertension) 7 documented as of this encounter (statuses as of 04/23/2023) [facility] History of Past illness Narrative* Problem Noted Date Diagnosed Date Resolved Date Adenopathy 12/25/2020 03/25/2021 Nausea with vomiting 08/17/2020 021 Last Assessment & Plan: Assessment: 200cc bilious emesis 08/16 PLAN: -Protonix 40mg IV daily -Compazine 5mg IV q6hr PRN Primary hypertension 01/20/2017 019 A-fib 03/06/2017 HTN (hypertension) 7 documented as of this encounter (statuses as of 04/23/2023) [facility] History of Past illness Narrative* Problem Noted Date Diagnosed Date Resolved Date Adenopathy 12/25/2020 03/25/2021 Nausea with vomiting 08/17/2020 021 Last Assessment & Plan: Assessment: 200cc bilious emesis 08/16 PLAN: -Protonix 40mg IV daily -Compazine 5mg IV q6hr PRN Primary hypertension 01/20/2017 019 A-fib 03/06/2017 HTN (hypertension) 7 documented as of this encounter (statuses as of 04/27/2023) [facility] History of Past illness Narrative* Problem Noted Date Diagnosed Date Resolved Date Adenopathy 12/25/2020 03/25/2021 Nausea with vomiting 08/17/2020 021 Last Assessment & Plan: Assessment: 200cc bilious emesis 08/16 PLAN: -Protonix 40mg IV daily -Compazine 5mg IV q6hr PRN Primary hypertension 01/20/2017 019 A-fib 03/06/2017 HTN (hypertension) 7 documented as of this encounter (statuses as of 04/27/2023) [facility] History of Past illness Narrative* Problem Noted Date Diagnosed Date Resolved Date Adenopathy 12/25/2020 03/25/2021 Nausea with vomiting 08/17/2020 021 Last Assessment & Plan: Assessment: 200cc bilious emesis 08/16 PLAN: -Protonix 40mg IV daily -Compazine 5mg IV q6hr PRN Primary hypertension 01/20/2017 019 A-fib 03/06/2017 HTN (hypertension) 7 documented as of this encounter (statuses as of 04/27/2023) [facility] History of Past illness Narrative* Problem Noted Date Diagnosed Date Resolved Date Adenopathy 12/25/2020 03/25/2021 Nausea with vomiting 08/17/2020 021 Last Assessment & Plan: Assessment: 200cc bilious emesis 08/16 PLAN: -Protonix 40mg IV daily -Compazine 5mg IV q6hr PRN Primary hypertension 01/20/2017 019 A-fib 03/06/2017 HTN (hypertension) 7 documented as of this encounter (statuses as of 04/27/2023) [facility] History of Past illness Narrative* Problem Noted Date Diagnosed Date Resolved Date Adenopathy 12/25/2020 03/25/2021 Nausea with vomiting 08/17/2020 021 Last Assessment & Plan: Assessment: 200cc bilious emesis 08/16 PLAN: -Protonix 40mg IV daily -Compazine 5mg IV q6hr PRN Primary hypertension 01/20/2017 019 A-fib 03/06/2017 HTN (hypertension) 7 documented as of this encounter (statuses as of 04/27/2023) [facility] History of Past illness Narrative* Problem Noted Date Diagnosed Date Resolved Date Adenopathy 12/25/2020 03/25/2021 Nausea with vomiting 08/17/2020 021 Last Assessment & Plan: Assessment: 200cc bilious emesis 08/16 PLAN: -Protonix 40mg IV daily -Compazine 5mg IV q6hr PRN Primary hypertension 01/20/2017 019 A-fib 03/06/2017 HTN (hypertension) 7 documented as of this encounter (statuses as of 04/27/2023) [facility] History of Past illness Narrative* Problem Noted Date Diagnosed Date Resolved Date Adenopathy 12/25/2020 03/25/2021 Nausea with vomiting 08/17/2020 021 Last Assessment & Plan: Assessment: 200cc bilious emesis 08/16 PLAN: -Protonix 40mg IV daily -Compazine 5mg IV q6hr PRN Primary hypertension 01/20/2017 019 A-fib 03/06/2017 HTN (hypertension) 7 documented as of this encounter (statuses as of 04/28/2023) [facility] History of Past illness Narrative* Problem Noted Date Diagnosed Date Resolved Date Adenopathy 12/25/2020 03/25/2021 Nausea with vomiting 08/17/2020 021 Last Assessment & Plan: Assessment: 200cc bilious emesis 08/16 PLAN: -Protonix 40mg IV daily -Compazine 5mg IV q6hr PRN Primary hypertension 01/20/2017 019 A-fib 03/06/2017 HTN (hypertension) 7 documented as of this encounter (statuses as of 04/30/2023) [facility] History of Past illness Narrative* Problem Noted Date Diagnosed Date Resolved Date Adenopathy 12/25/2020 03/25/2021 Nausea with vomiting 08/17/2020 021 Last Assessment & Plan: Assessment: 200cc bilious emesis 08/16 PLAN: -Protonix 40mg IV daily -Compazine 5mg IV q6hr PRN Primary hypertension 01/20/2017 019 A-fib 03/06/2017 HTN (hypertension) 7 documented as of this encounter (statuses as of 05/05/2023) [facility] History of Past illness Narrative* Problem Noted Date Diagnosed Date Resolved Date Adenopathy 12/25/2020 03/25/2021 Nausea with vomiting 08/17/2020 021 Last Assessment & Plan: Assessment: 200cc bilious emesis 08/16 PLAN: -Protonix 40mg IV daily -Compazine 5mg IV q6hr PRN Primary hypertension 01/20/2017 019 A-fib 03/06/2017 HTN (hypertension) 7 documented as of this encounter (statuses as of 05/05/2023) [facility] History of Past illness Narrative* Problem Noted Date Diagnosed Date Resolved Date Adenopathy 12/25/2020 03/25/2021 Nausea with vomiting 08/17/2020 021 Last Assessment & Plan: Assessment: 200cc bilious emesis 08/16 PLAN: -Protonix 40mg IV daily -Compazine 5mg IV q6hr PRN Primary hypertension 01/20/2017 019 A-fib 03/06/2017 HTN (hypertension) 7 documented as of this encounter (statuses as of 05/06/2023) [facility] History of Past illness Narrative* Problem Noted Date Diagnosed Date Resolved Date Adenopathy 12/25/2020 03/25/2021 Nausea with vomiting 08/17/2020 021 Last Assessment & Plan: Assessment: 200cc bilious emesis 08/16 PLAN: -Protonix 40mg IV daily -Compazine 5mg IV q6hr PRN Primary hypertension 01/20/2017 019 A-fib 03/06/2017 HTN (hypertension) 7 documented as of this encounter (statuses as of 05/11/2023) [facility] History of Past illness Narrative* Problem Noted Date Diagnosed Date Resolved Date Adenopathy 12/25/2020 03/25/2021 Nausea with vomiting 08/17/2020 021 Last Assessment & Plan: Assessment: 200cc bilious emesis 08/16 PLAN: -Protonix 40mg IV daily -Compazine 5mg IV q6hr PRN Primary hypertension 01/20/2017 019 A-fib 03/06/2017 HTN (hypertension) 7 documented as of this encounter (statuses as of 05/13/2023) [facility] History of Past illness Narrative* Problem Noted Date Diagnosed Date Resolved Date Adenopathy 12/25/2020 03/25/2021 Nausea with vomiting 08/17/2020 021 Last Assessment & Plan: Assessment: 200cc bilious emesis 08/16 PLAN: -Protonix 40mg IV daily -Compazine 5mg IV q6hr PRN Primary hypertension 01/20/2017 019 A-fib 03/06/2017 HTN (hypertension) 7 documented as of this encounter (statuses as of 05/26/2023) [facility] History of Past illness Narrative* Problem Noted Date Diagnosed Date Resolved Date Adenopathy 12/25/2020 03/25/2021 Nausea with vomiting 08/17/2020 021 Last Assessment & Plan: Assessment: 200cc bilious emesis 08/16 PLAN: -Protonix 40mg IV daily -Compazine 5mg IV q6hr PRN Primary hypertension 01/20/2017 019 A-fib 03/06/2017 HTN (hypertension) 7 documented as of this encounter (statuses as of 05/26/2023) [facility] History of Past illness Narrative* Problem Noted Date Diagnosed Date Resolved Date Adenopathy 12/25/2020 03/25/2021 Nausea with vomiting 08/17/2020 021 Last Assessment & Plan: Assessment: 200cc bilious emesis 08/16 PLAN: -Protonix 40mg IV daily -Compazine 5mg IV q6hr PRN Primary hypertension 01/20/2017 019 A-fib 03/06/2017 HTN (hypertension) 7 documented as of this encounter (statuses as of 05/27/2023) [facility] of Past illness Narrative* Problem Noted Date Diagnosed Date Resolved Date Adenopathy 12/25/2020 03/25/2021 Nausea with vomiting 08/17/2020 021 Last Assessment & Plan: Assessment: 200cc bilious emesis 08/16 PLAN: -Protonix 40mg IV daily -Compazine 5mg IV q6hr PRN Primary hypertension 01/20/2017 019 A-fib 03/06/2017 HTN (hypertension) 7 documented as of this encounter (statuses as of 05/28/2023) [facility] of Past illness Narrative* Problem Noted Date Diagnosed Date Resolved Date Adenopathy 12/25/2020 03/25/2021 Nausea with vomiting 08/17/2020 021 Last Assessment & Plan: Assessment: 200cc bilious emesis 08/16 PLAN: -Protonix 40mg IV daily -Compazine 5mg IV q6hr PRN Primary hypertension 01/20/2017 019 A-fib 03/06/2017 HTN (hypertension) 7 documented as of this encounter (statuses as of 06/03/2023) [facility] Past illness Narrative* Problem Noted Date Diagnosed Date Resolved Date Adenopathy 12/25/2020 03/25/2021 Nausea with vomiting 08/17/2020 021 Last Assessment & Plan: Assessment: 200cc bilious emesis 08/16 PLAN: -Protonix 40mg IV daily -Compazine 5mg IV q6hr PRN Primary hypertension 01/20/2017 019 A-fib 03/06/2017 HTN (hypertension) 7 documented as of this encounter (statuses as of 06/05/2023) [facility] Past illness Narrative* Problem Noted Date Diagnosed Date Resolved Date Adenopathy 12/25/2020 03/25/2021 Nausea with vomiting 08/17/2020 021 Last Assessment & Plan: Assessment: 200cc bilious emesis 08/16 PLAN: -Protonix 40mg IV daily -Compazine 5mg IV q6hr PRN Primary hypertension 01/20/2017 019 A-fib 03/06/2017 HTN (hypertension) 7 documented as of this encounter (statuses as of 06/07/2023) [facility] of Past illness Narrative* Problem Noted Date Diagnosed Date Resolved Date Adenopathy 12/25/2020 03/25/2021 Nausea with vomiting 08/17/2020 021 Last Assessment & Plan: Assessment: 200cc bilious emesis 08/16 PLAN: -Protonix 40mg IV daily -Compazine 5mg IV q6hr PRN Primary hypertension 01/20/2017 019 A-fib 03/06/2017 HTN (hypertension) 7 documented as of this encounter (statuses as of 06/23/2023) [facility] Past illness Narrative* Problem Noted Date Diagnosed Date Resolved Date Adenopathy 12/25/2020 03/25/2021 Nausea with vomiting 08/17/2020 021 Last Assessment & Plan: Assessment: 200cc bilious emesis 08/16 PLAN: -Protonix 40mg IV daily -Compazine 5mg IV q6hr PRN Primary hypertension 01/20/2017 019 A-fib 03/06/2017 HTN (hypertension) 7 documented as of this encounter (statuses as of 07/12/2023) [facility] Diagnosis 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, estrogen receptor positive (HCC)- Primary [facility] Diagnosis WALKER (dyspnea on exertion)- Primary Other dyspnea and respiratory abnormality Bacterial pneumonia Bacterial pneumonia, unspecified [facility] Diagnosis WALKER (dyspnea on exertion)- Primary Other dyspnea and respiratory abnormality Hemoptysis Hemoptysis, unspecified documented in this encounter [facility]* Diagnosis WALKER (dyspnea on exertion) Other dyspnea and respiratory abnormality Bacterial pneumonia Bacterial pneumonia, unspecified [facility] Diagnosis Myalgias- Primary Bacterial pneumonia Bacterial pneumonia, unspecified WALKER (dyspnea on exertion) Other dyspnea and respiratory abnormality Coronary artery disease involving [place] coronary artery of [place] heart with angina pectoris (HCC) Atrial fibrillation, chronic (HCC) Atrial fibrillation Prediabetes Other abnormal glucose Hypertension, essential Unspecified essential hypertension CAMRYN (obstructive sleep apnea) Obstructive sleep apnea (adult) (pediatric) Hyperlipidemia, mixed Mixed hyperlipidemia Malignant neoplasm of overlapping sites of left breast in female, estrogen receptor positive (HCC) documented [facility] this encounter [facility]* Diagnosis Age-related osteoporosis without current pathological fracture- Primary Senile osteoporosis [facility] Diagnosis Atrial fibrillation, persistent (HCC)- Primary Atrial fibrillation Chronic diastolic CHF (congestive heart failure) (HCC) Chronic diastolic heart failure [facility]* Diagnosis 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, 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 [facility]* Diagnosis Neuropathy- Primary Mononeuritis of unspecified site Chronic diastolic congestive heart failure (HCC) Chronic diastolic heart failure [facility]* Diagnosis Age-related osteoporosis without current pathological fracture- Primary Senile osteoporosis [facility]* Diagnosis IPMN (intraductal papillary mucinous neoplasm)- Primary Neoplasm of unspecified nature of digestive system Abdominal pain, unspecified abdominal location [facility]* Diagnosis 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, estrogen receptor positive (HCC) Lung nodules Other nonspecific abnormal finding of lung field Cough IPMN (intraductal papillary mucinous neoplasm) Neoplasm of unspecified nature of digestive system Abdominal pain, unspecified abdominal location [facility] Diagnosis Essential hypertension Unspecified essential hypertension [facility] Diagnosis IPMN (intraductal papillary mucinous neoplasm)- Primary Neoplasm of unspecified nature of digestive system [facility]* Diagnosis Prediabetes- Primary Other abnormal glucose Essential hypertension Unspecified essential hypertension CAMRYN (obstructive sleep apnea) Obstructive sleep apnea (adult) (pediatric) Hyperlipidemia, mixed Mixed hyperlipidemia Atrial fibrillation, chronic (HCC) Atrial fibrillation 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 (intraductal papillary mucinous neoplasm) Neoplasm of unspecified nature of digestive system Stage 1 breast cancer, ER+, left (HCC) Screening mammogram, encounter for [facility] Diagnosis CAMRYN (obstructive sleep apnea)- Primary Obstructive sleep apnea (adult) (pediatric) Atrial fibrillation, chronic (HCC) Atrial fibrillation [facility] Diagnosis 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, estrogen receptor positive (HCC)- Primary 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 Lung nodules Other nonspecific abnormal finding of lung field Malignant neoplasm of breast in female, estrogen receptor positive, unspecified laterality, unspecified site of breast (HCC) [facility] Lung nodule- Primary Solitary pulmonary nodule [facility] Diagnosis Lung nodule seen on imaging study- Primary Solitary pulmonary nodule Stage 1 breast cancer, ER+, left (HCC) Essential hypertension Unspecified essential hypertension Gastroesophageal reflux disease without esophagitis Esophageal reflux Prediabetes Other abnormal glucose Atrial fibrillation, chronic (HCC) Atrial fibrillation Coronary artery disease involving [place] coronary artery of [place] heart with angina pectoris (HCC) CAMRYN (obstructive sleep apnea) Obstructive sleep apnea (adult) (pediatric) Hyperlipidemia, mixed Mixed hyperlipidemia Chronic diastolic CHF (congestive heart failure) (HCC) Chronic diastolic heart failure [place] foot [facility] Bilateral foot pain- Primary Pain in limb [facility] Diagnosis Malignant neoplasm of lower-outer quadrant [...] diastolic heart failure Coronary artery disease involving [place] coronary artery of [place] heart with angina pectoris (HCC) Pulmonary hypertension [...] apnea (adult) (pediatric) Coronary artery disease involving [place] coronary artery of [place] heart with angina pectoris (HCC) Atrial fibrillation, [...] essential hypertension [facility]* Diagnosis Fall in home, subsequent encounter- Primary Unsteady gait Abnormality of gait [facility]* Diagnosis Fall in home, subsequent encounter- Primary Unsteady gait Abnormality of gait [facility] Diagnosis Fall in home, subsequent encounter- Primary Unsteady gait Abnormality of gait [facility] Diagnosis Fall in home, subsequent encounter- Primary Unsteady gait Abnormality of gait [facility] Diagnosis Fall in home, subsequent encounter- Primary Unsteady gait Abnormality of gait [facility]* Diagnosis Fall in home, subsequent encounter- Primary Unsteady gait Abnormality of gait [facility]* Diagnosis Age-related osteoporosis without current pathological fracture- Primary Senile osteoporosis Primary hyperparathyroidism (HCC) Primary hyperparathyroidism CAMRYN (obstructive sleep apnea)- Primary Obstructive sleep apnea (adult) (pediatric) Atrial fibrillation, chronic (HCC) Atrial fibrillation [facility]* Diagnosis Fall in home, subsequent encounter- Primary Unsteady gait Abnormality of gait [facility]* Diagnosis CAMRYN (obstructive sleep apnea)- Primary Obstructive sleep apnea (adult) (pediatric) Atrial fibrillation, chronic (HCC) Atrial fibrillation [facility]* Diagnosis Age-related osteoporosis without current pathological fracture- Primary Senile osteoporosis [facility]* Diagnosis Atrial fibrillation, chronic (HCC) Atrial fibrillation [facility]* Diagnosis Age-related physical debility- Primary Senility without mention of psychosis [facility]* Diagnosis 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, estrogen receptor positive (HCC)- Primary 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 [facility]* Diagnosis Essential hypertension- Primary Unspecified essential hypertension Blood creatinine increased compared with prior measurement Stage 3b chronic kidney disease (HCC) IPMN (intraductal papillary mucinous neoplasm) Neoplasm of unspecified nature of digestive system Prediabetes Other abnormal glucose Chronic diastolic CHF (congestive heart failure) (HCC) Chronic diastolic heart failure Coronary artery disease involving [place] coronary artery of [place] heart with angina pectoris (HCC) Hyperparathyroidism (HCC) Hyperparathyroidism, unspecified Malignant neoplasm of overlapping sites of left breast in female, estrogen receptor positive (HCC) CAMRYN (obstructive sleep apnea) Obstructive sleep apnea (adult) (pediatric) [facility] Diagnosis Stage 3b chronic kidney disease (HCC)- Primary [facility]* Diagnosis Stage 3b chronic kidney disease (HCC)- Primary Essential hypertension Unspecified essential hypertension Chronic diastolic CHF (congestive heart failure) (HCC) Chronic diastolic heart failure [facility]* Diagnosis ARTHUR (acute kidney injury) (HCC)- Primary Acute kidney failure, unspecified [facility]* Diagnosis Chronic combined systolic (congestive) and diastolic (congestive) heart failure (HCC)- Primary [facility] Diagnosis Encounter for screening mammogram for malignant neoplasm of breast- Primary Other screening mammogram [facility] Diagnosis Malignant neoplasm of breast in female, estrogen receptor positive, unspecified laterality, unspecified site of breast (HCC)- Primary 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, estrogen receptor positive (HCC) Chest wall recurrence of breast cancer, 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 [facility]* Diagnosis Chronic diastolic congestive heart failure (HCC)- Primary Chronic diastolic heart failure [facility]* Diagnosis Nonrheumatic tricuspid valve regurgitation- Primary Tricuspid valve disorders, specified as nonrheumatic Encounter for preprocedural cardiovascular examination Pre-operative cardiovascular examination Hypertensive heart disease with heart failure (HCC) Unspecified hypertensive heart disease with heart failure Acute diastolic (congestive) heart failure (HCC) Chronic atrial fibrillation, unspecified (HCC) [facility]* Diagnosis 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 Chronic combined systolic and diastolic heart failure Nonrheumatic tricuspid valve regurgitation Tricuspid valve disorders, specified as nonrheumatic [facility]* Diagnosis Encounter for screening breast examination [...] specified as nonrheumatic [facility]* Diagnosis Malignant neoplasm of lower-outer [...] specified as nonrheumatic [facility]* Diagnosis Multiple benign nevi- Primary [...] specified as nonrheumatic [facility] Diagnosis Malignant neoplasm of overlapping sites of left breast in female, estrogen receptor positive (HCC)- Primary Mediastinal adenopathy Enlargement of lymph nodes 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 Nonrheumatic tricuspid valve regurgitation Tricuspid valve disorders, specified as nonrheumatic [facility] Diagnosis Stage 3b chronic kidney disease (HCC)- Primary Nonrheumatic tricuspid valve regurgitation Tricuspid valve disorders, specified as nonrheumatic [facility] Diagnosis Essential hypertension Unspecified essential hypertension Nonrheumatic tricuspid valve regurgitation Tricuspid valve disorders, specified as nonrheumatic [facility] Diagnosis Malignant neoplasm of overlapping sites of left breast in female, estrogen receptor positive (HCC)- Primary Mediastinal adenopathy Enlargement of lymph nodes 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 Nonrheumatic tricuspid valve regurgitation Tricuspid valve disorders, specified as nonrheumatic [facility] Diagnosis 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, 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 Lung nodules Other nonspecific abnormal finding of lung field Nonrheumatic tricuspid valve regurgitation Tricuspid valve disorders, specified as nonrheumatic [facility]* Diagnosis Tricuspid valve insufficiency, unspecified etiology- Primary Nonrheumatic tricuspid valve regurgitation Tricuspid valve disorders, specified as nonrheumatic [facility] Diagnosis Severe tricuspid regurgitation- Primary Diseases of tricuspid valve Acute on chronic combined systolic and diastolic congestive heart failure (HCC) Acute on chronic combined systolic and diastolic heart failure Goals of care, counseling/discussion Other specified counseling Essential hypertension Unspecified essential hypertension Mixed hyperlipidemia [facility] Examination of participant in clinical trial- Primary documented in this encounter [facility] for referral (narrative)* Outpatient Procedure (Routine) - Pending Review Specialty Diagnoses / Procedures Referred By Eduardo westbrook Referred To [facility] Diagnoses WALKER (dyspnea on exertion) Procedures ECG COMPLETE ECG ROUTINE ECG W/LEAST 12 LDS W/I&R Tala Negron MD [address] [place] [address] [facility] [address] [address] Referral ID Status Reason Start Date Expiration Date Visits Requested Visits Authorized [id number] Pending Review Auto-Generat ed Referral 10/14/2021 10/14/2022 [address] [facility] for referral (narrative)* Diagnostic Procedure Only (Routine) - Pending Review Specialty Diagnoses / Procedures Referred By [place]ac t Referred To Contact BR IMAGING Diagnoses Screening mammogram, encounter for Procedures ZINA SCREENING SCREENING MAMMOGRAPHY BI 2-VIEW BREAST INC CAD Tala Negron MD [address] [place] [address] Br Imaging [address] [place] [id number] Referral ID Status Reason Start Date Expiration Date Visits Requested Visits Authorized [id number] Pending Review Auto-Generat ed Referral 02/14/2022 03/16/2023 [address] [facility] for referral (narrative)* Diagnostic Procedure Only (Routine) - Pending Review Specialty Diagnoses / Procedures Referred By Eduardo t Referred To Contact [facility] Diagnoses CAMRYN (obstructive sleep apnea) Atrial fibrillation, chronic (HCC) Procedures HOME SLEEP APNEA TEST (HSAT) SLEEP STD AIRFLOW HRT RATE&O2 SAT EFFORT Kizzy Barros, BEAM DOFFER.CLIENT TECHNICAL SPECIALIST [address] [place] [address] Neurological [place] [id number] Referral ID Status Reason Start Date Expiration Date Visits Requested Visits Authorized [id number] Pending Review Auto-Generat ed Referral 02/17/2022 02/17/2023 [address] [facility] for referral (narrative)* Diagnostic Procedure Only (Routine) - Authorized Specialty Diagnoses / Procedures Referred By Contac t Referred To Contact [facility]CULAR [facility]AL [facility] Diagnoses Lung nodules Malignant neoplasm of breast in female, estrogen receptor positive, unspecified laterality, unspecified site of breast (HCC) Procedures NM BONE WHOLE BODY BONE &/JOINT IMAGING WHOLE BODY Nimisha Aleman APRN.CLIENT TECHNICAL SPECIALIST [address] [place] [address] Molecular [facility] [address] [place] [address] Referral ID Status Reason Start Date Expiration Date Visits Requested Visits Authorized [id number] Authorized Auto-Generat ed Referral 02/28/2022 03/30/2023 1 1 * MRI/CT (Routine) - Authorized Specialty Diagnoses / Procedures Referred By Eduardo t Referred To Contact CT IMAGING Diagnoses Lung nodules Malignant neoplasm of breast in female, estrogen receptor positive, unspecified laterality, unspecified site of breast (HCC) Procedures CT CHEST W IVCON DIAGNOSTIC COMPUTED TOMOGRAPHY THORAX W/CONTRAST Nimisha Aleman APRN.CLIENT TECHNICAL SPECIALIST [address] [place] [address] Ct Imaging Referral ID Status Reason Start Date Expiration Date Visits Requested Visits Authorized [id number] Authorized Auto-Generat ed Referral 02/28/2022 03/30/2023 1 1 * MRI/CT (Routine) - Authorized Specialty Diagnoses / Procedures [facility] To Contact [facility] Diagnoses Lung nodules Malignant neoplasm of breast in female, estrogen receptor positive, unspecified laterality, unspecified site of breast (HCC) Procedures CT ABD/PEL W IVCON CT ABD & PELVIS W/CONTRAST Nimisha Aleman APRN.CLIENT TECHNICAL SPECIALIST [address] [place] [address] Ct Imaging Referral ID Status Reason Start Date Expiration Date Visits Requested Visits Authorized [id number] Authorized Auto-Generat ed Referral 02/28/2022 03/30/2023 [address] [facility] for referral (narrative)* Diagnostic Procedure Only (Routine) - Pending Review Specialty Diagnoses / Procedures Referred By Contac t Referred To Contact XR IMAGING Diagnoses Bilateral foot pain Procedures XR FOOT GENERAL 3V AP/LAT/OBL BILATERAL RADEX FOOT COMPLETE MINIMUM 3 VIEWS Tracy Mckeon [address] [place] [address] Xr Imaging Referral ID Status Reason Start Date Expiration Date Visits Requested Visits Authorized [id number] Pending Review Auto-Generat ed Referral 05/23/2022 06/22/2023 [address] [facility] for referral (narrative)* Diagnostic Procedure Only (Routine) - Authorized Specialty Diagnoses / Procedures Referred By Contac t Referred To Contact MOLECULAR [facility] FUNCTIONAL [facility]AGING Diagnoses 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, estrogen receptor positive (HCC) 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) Lung nodules Procedures NM BONE WHOLE BODY BONE &/JOINT IMAGING WHOLE BODY Nimisha Aleman APRN.CLIENT TECHNICAL SPECIALIST [address] [place] [address] Molecular & Functional Imaging [address] [place] [address] Referral ID Status Reason Start Date Expiration Date Visits Requested Visits Authorized [id number] Authorized Auto-Generat ed Referral 08/15/2022 09/14/2023 1 1 * MRI/CT (Routine) - Authorized Specialty Diagnoses / Procedures Referred By Contac t Referred To Contact CT IMAGING Diagnoses 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, estrogen receptor positive (HCC) 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) Lung nodules Procedures CT CHEST W IVCON DIAGNOSTIC COMPUTED TOMOGRAPHY THORAX W/CONTRAST Nimisha Aleman APRN.CNP [address] [place] [address] Ct Imaging Referral ID Status Reason Start Date Expiration Date Visits Requested Visits Authorized [id number] Authorized Auto-Generat ed Referral 08/15/2022 09/14/2023 1 1 * MRI/CT (Routine) - Authorized Specialty Diagnoses / Procedures Referred By Eduardo westbrook Referred To Contact CT IMAGING Diagnoses 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, estrogen receptor positive (HCC) 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) Lung nodules Procedures CT ABD/PEL W IVCON CT ABD & PELVIS W/CONTRAST Nimisha Aleman APRN.CLIENT TECHNICAL SPECIALIST [address] [place] [address] Ct Imaging Referral ID Status Reason Start Date Expiration Date Visits Requested Visits Authorized [id number] Authorized Auto-Generat ed Referral 08/15/2022 09/14/2023 [address] [facility] for referral (narrative)* Diagnostic Procedure Only (Routine) - Authorized Specialty Diagnoses / Procedures Referred By Eduardo westbrook Referred To Contact US IMAGING Diagnoses Stage 3b chronic kidney disease (HCC) Essential hypertension Chronic diastolic CHF (congestive heart failure) (HCC) Procedures US KIDNEY/BLADDER US RETROPERITONEAL REAL TIME W/[place] [address] [place] [address] [place] [address] Referral ID Status Reason Start Date Expiration Date Visits Requested Visits Authorized [id number] Authorized Auto-Generat ed Referral 02/25/2023 03/26/2024 [address] [facility] for referral (narrative)* Diagnostic Procedure Only (Routine) - Pending Review Specialty Diagnoses / Procedures Referred By Eduardo westbrook Referred To Contact BR IMAGING Diagnoses Encounter for screening mammogram for malignant neoplasm of breast Procedures ZINA SCREENING W VIRGIL SCREENING DIGITAL BREAST TOMOSYNTHESIS BI SCREENING MAMMOGRAPHY BI 2-VIEW BREAST INC CAD Vladimir Thao DO [address] [place] [address] Br Imaging [address] [place] [phone] Referral ID Status Reason Start Date Expiration Date Visits Requested Visits Authorized [id number] Pending Review Auto-Generat ed Referral 03/14/2023 04/12/2024 [address] [facility] for referral (narrative)* Diagnostic Procedure Only [...] CT ATTENUATION SKULL BASE MID-THIGH Nimisha Aleman APRN.CLIENT TECHNICAL SPECIALIST [address] [place] [address] Molecular & Functional Imaging [address] [place] [id number] Referral ID Status Reason Start Date Expiration Date Visits Requested Visits Authorized [id number] Authorized Auto-Generat ed Referral 3 05/05/2024 [address] [facility] for referral (narrative)* Outpatient Procedure (Routine) - Pending Review Specialty Diagnoses / Procedures Referred By Contac t Referred To Contact [facility] Diagnoses Nonrheumatic tricuspid valve regurgitation Procedures ECG COMPLETE ECG ROUTINE ECG W/LEAST 12 LDS W/I&R Randee Rodriguez APRN.CLIENT TECHNICAL SPECIALIST [address] [place] [address] [facility] [place] [address] [place] [address] Referral ID Status Reason Start Date Expiration Date Visits Requested Visits Authorized [id number] Pending Review Auto-Generat ed Referral 3 04/12/2024 1 1 * MRI/CT (Routine) - Pending Review Specialty Diagnoses / Procedures Referred By Eduardo westbrook Referred To Contact CT IMAGING Diagnoses Encounter for preprocedural cardiovascular examination Chronic atrial fibrillation, unspecified (HCC) Procedures CT CARDIAC W IVCON CT HEART CONTRAST EVAL CARDIAC STRUCTURE&MORPH Randee Rodriguez APRN.CLIENT TECHNICAL SPECIALIST [address] [place] [address] Ct Imaging [place] [address] Referral ID Status Reason Start Date Expiration Date Visits Requested Visits Authorized [id number] Pending Review Auto-Generat ed Referral 3 05/12/2024 1 1 * Outpatient Procedure (Routine) - Pending Review Specialty Diagnoses / Procedures Referred By Eduardo t Referred To Contact [facility] Diagnoses Nonrheumatic tricuspid valve regurgitation Procedures ECHO TRANSESOPHAGEAL ECHO TRANSESOPHAG R-T 2D W/PRB IMG ACQUISJ I&R Randee Rodriguez APRN.CLIENT TECHNICAL SPECIALIST [address] [place] [id number] [facility] [address] [place], [place] [address] [address] Referral ID Status Reason Start Date Expiration Date Visits Requested Visits Authorized [id number] Pending Review Auto-Generat ed Referral 3 04/12/2024 1 1 * Outpatient Procedure (Routine) - Pending Review Specialty Diagnoses / Procedures Referred By Contac t Referred To Contact [facility] Diagnoses Nonrheumatic tricuspid valve regurgitation Procedures ECHO ECHO TTHRC R-T 2D W/WOM-MODE COMPL SPEC&COLR D Randee Rodriguez APRN.CLIENT TECHNICAL SPECIALIST [address] [place] [address] [facility] [address] [place] [address] Referral ID Status Reason Start Date Expiration Date Visits Requested Visits Authorized [id number] Pending Review Auto-Generat ed Referral 04/12/2024 [address] [facility] for referral (narrative)* Diagnostic Procedure Only [...] INC CAD Vladimir Thao DO [address] [place] [address] Br Imaging [address] [place] [address] Referral ID Status Reason Start Date Expiration Date V isits Requested Visits Authorized [id number] Closed Auto-Generate d Referral 02/02/2023 03/03/2024 [address] [facility] for referral (narrative)* Diagnostic Procedure Only (Routine) - Closed Specialty Diagnoses / Procedures Referred By Contac t Referred To Contact US IMAGING Diagnoses Stage 3b chronic kidney disease (HCC) Essential hypertension Chronic diastolic CHF (congestive heart failure) (HCC) Procedures US KIDNEY/BLADDER US RETROPERITONEAL REAL TIME W/[place] [address] [place] [address] [place] [address] Referral ID Status Reason Start Date Expiration Date V isits Requested Visits Authorized [id number] Closed Auto-Generate d Referral 02/25/2023 03/26/2024 [address] [facility] for referral (narrative)* Diagnostic Procedure Only (Routine) - Closed Specialty Diagnoses / Procedures Referred By Contac t Referred To Contact MOLECULAR & FUNCTIONAL IMAGING Diagnoses 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, estrogen receptor positive (HCC) 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) Lung nodules Procedures NM BONE WHOLE BODY BONE &/JOINT IMAGING WHOLE BODY Nimisha Aleman APRN.CLIENT TECHNICAL SPECIALIST [address] [place] [address] Molecular [facility] [address] [place] [address] Referral ID Status Reason Start Date Expiration Date V isits Requested Visits Authorized [id number] Closed Auto-Generate d Referral 08/15/2022 09/14/2023 1 1 [facility] for referral (narrative)* Diagnostic Procedure Only (Routine) - Closed Specialty Diagnoses / Procedures Referred By Contac t Referred To Contact MOLECULAR & FUNCTIONAL IMAGING Diagnoses Lung nodules Malignant neoplasm of breast in female, estrogen receptor positive, unspecified laterality, unspecified site of breast (HCC) Procedures NM BONE WHOLE BODY BONE &/JOINT IMAGING WHOLE BODY Nimisha Aleman APRN.CLIENT TECHNICAL SPECIALIST [address] [place] [address] Molecular [facility] Functional Imaging [address] [place] [address] Referral ID Status Reason Start Date Expiration Date V isits Requested Visits Authorized [id number] Closed Auto-Generate d Referral 02/28/2022 03/30/2023 1 1 [facility] for referral (narrative)* Diagnostic Procedure Only (Routine) [...] CT ATTENUATION SKULL BASE MID-THIGH Nimisha Aleman APRN.CLIENT TECHNICAL SPECIALIST [address] [place] [address] Molecular & Functional Imaging [address] [place] [address] Referral ID Status Reason Start Date Expiration Date V isits Requested Visits Authorized [id number] Closed Auto-Generate d Referral 04/06/2023 05/05/2024 1 1 [facility] for referral (narrative)* Diagnostic Procedure Only (Routine) - Authorized Specialty Diagnoses / Procedures Referred By Contgio t Referred To Contact MOLECULAR & FUNCTIONAL IMAGING Diagnoses Malignant neoplasm of overlapping sites of left breast in female, estrogen receptor positive (HCC) Mediastinal adenopathy Procedures NM PET/CT BREAST PET IMAGING CT ATTENUATION SKULL BASE MID-THIGH Vladimir Thao, DO [address] [facility] [place] [address] Molecular & Functional Imaging [address] [place] [address] Referral ID Status Reason Start Date Expiration Date Visits Requested Visits Authorized [id number] Authorized Auto-Generat ed Referral 06/09/2024 1 1 [facility] for visit Narrative* Diagnostic Procedure Only (Routine) - Closed Specialty Diagnoses / Procedures Referred By Eduardo westbrook Referred To Contact BR IMAGING Diagnoses Encounter for screening breast examination 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, estrogen receptor positive (HCC) 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) Lung nodules Encounter for screening mammogram for malignant neoplasm of breast Procedures ZINA SCREENING W VIRGIL SCREENING DIGITAL BREAST TOMOSYNTHESIS BI SCREENING MAMMOGRAPHY BI 2-VIEW BREAST INC CAD Vladimir Thao DO [address] [place] [address] Br Imaging [address] [place] [address] Referral ID Status Reason Start Date Expiration Date V isits Requested Visits Authorized [id number] Closed Auto-Generate d Referral 02/02/2023 03/03/2024 [address] [facility] for visit Narrative* Diagnostic Procedure Only (Routine) - Closed Specialty Diagnoses / Procedures Referred By Contac t Referred To Contact MOLECULAR & FUNCTIONAL IMAGING Diagnoses 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, estrogen receptor positive (HCC) 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) Lung nodules Procedures NM BONE WHOLE BODY BONE &/JOINT IMAGING WHOLE BODY Nimisha Aleman APRN.CLIENT TECHNICAL SPECIALIST [address] [place] [address] Molecular & Functional Imaging [address] [place] [address] Referral ID Status Reason Start Date Expiration Date V isits Requested Visits Authorized [id number] Closed Auto-Generate d Referral 08/15/2022 09/14/2023 [address] [facility] for visit Narrative* Diagnostic Procedure Only (Routine) - Closed Specialty Diagnoses / Procedures Referred By Miltonac t Referred To Contact MOLECULAR & FUNCTIONAL IMAGING Diagnoses Lung nodules Malignant neoplasm of breast in female, estrogen receptor positive, unspecified laterality, unspecified site of breast (HCC) Procedures NM BONE WHOLE BODY BONE &/JOINT IMAGING WHOLE BODY Nimisha Aleman APRN.CLIENT TECHNICAL SPECIALIST [address] [place] [address] Molecular & Functional Imaging [address] [place] [address] Referral ID Status Reason Start Date Expiration Date V isits Requested Visits Authorized [id number] Closed Auto-Generate d Referral 02/28/2022 03/30/2023 [address] [facility] for visit Narrative* Diagnostic Procedure Only [...] CT ATTENUATION SKULL BASE MID-THIGH Nimisha Aleman APRN.CLIENT TECHNICAL SPECIALIST [address] [place] [address] Molecular & Functional Imaging [address] [place] [address] Referral ID Status Reason Start Date Expiration Date V isits Requested Visits Authorized [id number] Closed Auto-Generate d Referral 04/06/2023 05/05/2024 1 1 [facility] Summary Purpose Family History No Family History Records FoundNo Family History Records FoundNo Family History Records Found Advance Directives No Advanced Directives Records FoundDocuments on File Type Date Recorded 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 Advance Directive(s) 02/17/2022 11:05 AM Latest Code Status on File Code Status Date Activated Date Inactivated Comments Full Code 08/15/2020 1:47 PM 08/21/2020 6:53 PM Full Code Order Discussed With: Patient Documents on File Type Date Recorded 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 Advance Directive(s) 02/09/2017 2:07 PM Documents on File Type Date Recorded 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 Advance Directive(s) 12/25/2020 9:16 AM [...] Documents on File Type Date Recorded 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 Author Type: Nurse Window Shade Ring Coverer Type: Anesthesia Procedure Notes Filed: 02/16/2020 7:51 AM Note Text: ANESTHESIOLOGY PROCEDURE NOTE Airway General Information Procedure Start Time/Medication Administration: 02/16/2020 7:42 AM Patient location during procedure: OR Staffing ENVIRONMENTAL ISSUES INSTRUCTOR: Brittany Sahu Performed by: SHANEKA Indications and [...] (more content not included)... Note HNO ID: [id number] Author: Basia Pereyra Service: General Surgery Author Type: Physician Type: Brief Op Note Filed: 02/16/2020 10:12 AM Note Text: BRIEF OPERATIVE / PROCEDURE NOTE LOG ID: [id number] SURGERY/PROCEDURE DATE: 02/16/2020 INCISION/PROCEDURE START TIME: 8:06 AM INCISION CLOSE/PROCEDURE END TIME: 9:56 AM SURGEON(S)/PROCEDURALIST(S) AND BREAKFAST HOSTESS(S): Surgeon(s) and Role: * Patel Villanueva - Primary * Valorie Pereyra - Fellow Raw Stock Drier Tender: Vikram Campbell SURGERY/PROCEDURE(S): Parathyroid exploration ANESTHESIA: General [...] DIAGNOSTIC COMPUTED TOMOGRAPHY THORAX W/CONTRAST Nimisha Aleman, [place].CLIENT TECHNICAL SPECIALIST [address] [place] [address] Ct Imaging Referral ID Status Reason Start Date Expiration Date V isits Requested Visits Authorized [id number] Closed Auto-Generate d Referral 11/11/2021 12/11/2022 1 1 Specialty Diagnoses / Procedures Referred By Eduardo westbrook Referred To Contact CT IMAGING Diagnoses 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, estrogen receptor positive (HCC) 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) Procedures CT ABD/PEL W IVCON CT ABD & PELVIS W/CONTRAST Nimisha Aleman APRN.CLIENT TECHNICAL SPECIALIST [address] [place] [address] Ct Imaging Referral ID Status Reason Start Date Expiration Date V isits Requested Visits Authorized [id number] Closed Auto-Generate d Referral 11/11/2021 12/11/2022 1 1 Specialty Diagnoses / Procedures Referred By Contac t Referred To Contact Neurology Diagnoses Neuropathy Procedures CONSULT TO NEUROLOGY OFFICE/OUTPATIENT [facility] 60-74 MINUTES Daniela Chan DO [address] [place] [address] Referral ID Status Reason Start Date Expiration Date Visits Requested Visits Authorized [id number] Authorized PCP Requested Referral 11/26/2021 11/26/2022 1 1 Specialty Diagnoses / Procedures Referred By Contac t Referred To Contact CT IMAGING Diagnoses IPMN (intraductal papillary mucinous neoplasm) Abdominal pain, unspecified abdominal location Procedures CT PANCREAS/PELVIS W IVCON CT ABD & PELVIS W/CONTRAST Vikram Gomez MD [address] [place] [address] Ct Imaging Referral ID Status Reason Start Date Expiration Date Visits Requested Visits Authorized [id number] Pending Review Auto-Generat ed Referral 12/20/2021 01/19/2023 1 1 Referral ID Status Reason Start Date Expiration Date V isits Requested Visits Authorized [id number] Closed Auto-Generate d Referral 12/20/2021 01/19/2023 1 1 Specialty Diagnoses / Procedures Referred By Contac t Referred To Contact CT IMAGING Diagnoses 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, estrogen receptor positive (HCC) Lung nodules Cough Procedures CT CHEST W IVCON DIAGNOSTIC COMPUTED TOMOGRAPHY THORAX W/CONTRAST Nimisha Aleman APRN.CLIENT TECHNICAL SPECIALIST [address] [place] [address] Ct Imaging Referral ID Status Reason Start Date Expiration Date V isits Requested Visits Authorized [id number] Closed Auto-Generate d Referral 11/22/2021 12/22/2022 1 1 Specialty Diagnoses / Procedures Referred By Contac t Referred To Contact Podiatry Diagnoses Fallen arches Procedures CONSULT TO PODIATRY OFFICE/OUTPATIENT [facility] MDM 60-74 MINUTES Tala Negron MD [address] [place] [address] Referral ID Status Reason Start Date Expiration Date Visits Requested Visits Authorized [id number] Authorized PCP Requested Referral 2 05/21/2023 1 1 Specialty Diagnoses / Procedures Referred By Contac t Referred To Contact CT IMAGING Diagnoses 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, estrogen receptor positive (HCC) Lung nodules 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) Procedures CT CHEST W IVCON DIAGNOSTIC COMPUTED TOMOGRAPHY THORAX W/CONTRAST Nimisha Aleman, [place].CLIENT TECHNICAL SPECIALIST [address] [place] [address] Ct Imaging Referral ID Status Reason Start Date Expiration Date Visits Requested Visits Authorized [id number] Authorized Auto-Generat ed Referral 05/23/2022 06/22/2023 1 1 Specialty Diagnoses / Procedures Referred By Contac t Referred To Contact [facility] Diagnoses Fall in home, initial encounter Left upper arm pain Unsteady gait when walking Procedures CONSULT TO PHYSICAL THERAPY PHYSICAL THERAPY EVALUATION HIGH COMPLEX 45 MINS Tala Negron MD [address] [place] [address] [facility] [place] [address] [place] [address] Referral ID Status Reason Start Date Expiration Date Visits Requested Visits Authorized [id number] Authorized PCP Requested Referral Auto-Generate d Referral 08/19/2022 08/19/2023 99 99 Specialty Diagnoses / Procedures Referred By Contac t Referred To Contact XR IMAGING Diagnoses Fall in home, initial encounter Left upper arm pain Procedures XR HUMERUS 2V AP/LAT LEFT RADEX HUMERUS MINIMUM 2 VIEWS Tala Negron MD [address] [place] [address] Xr Imaging Referral ID Status Reason Start Date Expiration Date V isits Requested Visits Authorized [id number] Closed Auto-Generate d Referral 08/19/2022 09/18/2023 1 1 Specialty Diagnoses / Procedures Referred By Contac t Referred To Contact XR IMAGING Diagnoses Fall in home, initial encounter Left upper arm pain Procedures XR SHOULDER GENERAL 3V OR MORE AP/TRUE AP/OTHER LEFT RADEX SHOULDER COMPLETE MINIMUM 2 VIEWS Tala Negron MD [address] [place] [address] Xr Imaging Referral ID Status Reason Start Date Expiration Date V isits Requested Visits Authorized [id number] Closed Auto-Generate d Referral 08/19/2022 09/18/2023 1 1 Specialty Diagnoses / Procedures Referred By Contac t Referred To Contact Nephrology Diagnoses Stage 3b chronic kidney disease (HCC) Procedures CONSULT TO NEPHROLOGY OFFICE/OUTPATIENT [facility] 60-74 MINUTES LiorlogMelanie sanabria APRN.CLIENT TECHNICAL SPECIALIST [address] [place] [address] Referral ID Status Reason Start Date Expiration Date Visits Requested Visits Authorized [id number] Authorized PCP Requested Referral 02/16/2023 02/16/2024 1 1 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) Abnormal radionuclide bone scan Procedures MRI HIP WO/W IVCON RIGHT MRI ANY JT LOWER EXTREM W/O & W/CONTRAST MATRNimisha Araiza, [place].CLIENT TECHNICAL SPECIALIST [address] [place] [address] [place] [address] Referral ID Status Reason Start Date Expiration Date V isits Requested Visits Authorized [id number] Closed Auto-Generate d Referral 11/07/2022 12/07/2023 1 1 Specialty Diagnoses / Procedures Referred By Contac t Referred To Contact Procedures CARDIOVASCULAR MEDICINE OP FOLLOW UP APPT ORDER Mukesh Reyes MD [address] [place] [address] Referral ID Status Reason Start Date Expiration Date Visits Requested Visits Authorized [id number] Ref Not Required PCP Requested Referral 06/23/2023 06/22/2024 1 1 Health Concerns Problem Noted Date High Risk Chronic Disease Home Monitorin g Problem 11/04/2022 Problem Noted Date High Risk Chronic Disease Home Monitorin g Problem 11/04/2022 Problem Noted Date High Risk Chronic Disease Home Monitorin g Problem 11/04/2022 Problem Noted Date Diagnosed Date High Risk Chronic Disease Home Monitoring Proble m 11/04/2022 Problem Noted Date Diagnosed Date High Risk Chronic Disease Home Monitoring Proble m 11/04/2022 Problem Noted Date Diagnosed Date High Risk Chronic Disease Home Monitoring Proble m 11/04/2022 Problem Noted Date Diagnosed Date High Risk Chronic Disease Home Monitoring Proble m 11/04/2022 Problem Noted Date Diagnosed Date High Risk Chronic Disease Home Monitoring Proble m 11/04/2022 Problem Noted Date Diagnosed Date High Risk Chronic Disease Home Monitoring Proble m 11/04/2022 Problem Noted Date Diagnosed Date High Risk Chronic Disease Home Monitoring Proble m 11/04/2022 Problem Noted Date Diagnosed Date High Risk Chronic Disease Home Monitoring Proble 11/04/2022 Problem Noted Date Diagnosed Date High Risk Chronic Disease Home Monitoring Proble 11/04/2022 Problem Noted Date Diagnosed Date High Risk Chronic Disease Home Monitoring Proble m 11/04/2022 Problem Noted Date Diagnosed Date High [...] High Risk Chronic Disease Home Monitoring Proble m 11/04/2022 Problem Noted Date Diagnosed Date High Risk Chronic Disease Home Monitoring Proble 11/04/2022 Problem Noted Date Diagnosed Date High Risk Chronic Disease Home Monitoring Proble 11/04/2022 Problem Noted Date Diagnosed Date High Risk Chronic Disease Home Monitoring Proble m 11/04/2022 Additional Source Comments INFORMATION SOURCE (unrecogn ized section and content) DATE CREATED AUTHOR AUTHOR'S ORGANKATHIA ATION 05/05/2023 [facility] DATE CREATED AUTHOR AUTHOR'S ORGANKATHIA ATION 07/15/2023 [facility] Source Comments (unrecognize d section and content) In the event this informatio n is protected by the Federal Confidentiality of Alcohol and Drug Abuse Patient Records regulations: The Federal rules restrict any use of the information to criminally investigate or prosecute any alcohol or drug abuse patient.[facility] the event this information is protected by the Federal Confidentiality of Alcohol and Drug Abuse Patient Records regulations: The Federal rules restrict any use of the information to criminally investigate or prosecute any alcohol or drug abuse patient.[facility] the event this information is protected by the Federal Confidentiality of Alcohol and Drug Abuse Patient Records regulations: The Federal rules restrict any use of the information to criminally investigate or prosecute any alcohol or drug abuse patient.[facility] the event this information is protected by the Federal Confidentiality of Alcohol and Drug Abuse Patient Records regulations: The Federal rules restrict any use of the information to criminally investigate or prosecute any alcohol or drug abuse patient.[facility] the event this information is protected by the Federal Confidentiality of Alcohol and Drug Abuse Patient Records regulations: The Federal rules restrict any use of the information to criminally investigate or prosecute any alcohol or drug abuse patient.[facility] Center[facility] the event this information is protected by the Federal Confidentiality of Alcohol and Drug Abuse Patient Records regulations: The Federal rules restrict any use of the information to criminally investigate or prosecute any alcohol or drug abuse patient.[facility] the event this information is protected by the Federal Confidentiality of Alcohol and Drug Abuse Patient Records regulations: The Federal rules restrict any use of the information to criminally investigate or prosecute any alcohol or drug abuse patient.[facility] the event this information is protected by the Federal Confidentiality of Alcohol and Drug Abuse Patient Records regulations: The Federal rules restrict any use of the information to criminally investigate or prosecute any alcohol or drug abuse patient.[facility] the event this information is protected by the Federal Confidentiality of Alcohol and Drug Abuse Patient Records regulations: The Federal rules restrict any use of the information to criminally investigate or prosecute any alcohol or drug abuse patient.[facility] the event this information is protected by the Federal Confidentiality of Alcohol and Drug Abuse Patient Records regulations: The Federal rules restrict any use of the information to criminally investigate or prosecute any alcohol or drug abuse patient.[facility] the event this information is protected by the Federal Confidentiality of Alcohol and Drug Abuse Patient Records regulations: The Federal rules restrict any use of the information to criminally investigate or prosecute any alcohol or drug abuse patient.[facility] Center[facility] the event this information is protected by the Federal Confidentiality of Alcohol and Drug Abuse Patient Records regulations: The Federal rules restrict any use of the information to criminally investigate or prosecute any alcohol or drug abuse patient.[facility] the event this information is protected by the Federal Confidentiality of Alcohol and Drug Abuse Patient Records regulations: The Federal rules restrict any use of the information to criminally investigate or prosecute any alcohol or drug abuse patient.[facility] Center[facility] the event this information is protected by the Federal Confidentiality of Alcohol and Drug Abuse Patient Records regulations: The Federal rules restrict any use of the information to criminally investigate or prosecute any alcohol or drug abuse patient.[facility] Center[facility] the event this information is protected by the Federal Confidentiality of Alcohol and Drug Abuse Patient Records regulations: The Federal rules restrict any use of the information to criminally investigate or prosecute any alcohol or drug abuse patient.[facility] Center[facility] the event this information is protected by the Federal Confidentiality of Alcohol and Drug Abuse Patient Records regulations: The Federal rules restrict any use of the information to criminally investigate or prosecute any alcohol or drug abuse patient.[facility] Center[facility] the event this information is protected by the Federal Confidentiality of Alcohol and Drug Abuse Patient Records regulations: The Federal rules restrict any use of the information to criminally investigate or prosecute any alcohol or drug abuse patient.[facility] Center[facility] the event this information is protected by the Federal Confidentiality of Alcohol and Drug Abuse Patient Records regulations: The Federal rules restrict any use of the information to criminally investigate or prosecute any alcohol or drug abuse patient.[facility] Center[facility] the event this information is protected by the Federal Confidentiality of Alcohol and Drug Abuse Patient Records regulations: The Federal rules restrict any use of the information to criminally investigate or prosecute any alcohol or drug abuse patient.[facility] CenterIn the event this information is protected by the Federal Confidentiality of Alcohol and Drug Abuse Patient Records regulations: The Federal rules restrict any use of the information to criminally investigate or prosecute any alcohol or drug abuse patient.[facility] Center[facility] the event this information is protected by the Federal Confidentiality of Alcohol and Drug Abuse Patient Records regulations: The Federal rules restrict any use of the information to criminally investigate or prosecute any alcohol or drug abuse patient.[facility] CenterIn the event this information is protected by the Federal Confidentiality of Alcohol and Drug Abuse Patient Records regulations: The Federal rules restrict any use of the information to criminally investigate or prosecute any alcohol or drug abuse patient.[facility] CenterIn the event this information is protected by the Federal Confidentiality of Alcohol and Drug Abuse Patient Records regulations: The Federal rules restrict any use of the information to criminally investigate or prosecute any alcohol or drug abuse patient.[facility] CenterIn the event this information is protected by the Federal Confidentiality of Alcohol and Drug Abuse Patient Records regulations: The Federal rules restrict any use of the information to criminally investigate or prosecute any alcohol or drug abuse patient.[facility] CenterIn the event this information is protected by the Federal Confidentiality of Alcohol and Drug Abuse Patient Records regulations: The Federal rules restrict any use of the information to criminally investigate or prosecute any alcohol or drug abuse patient.[facility] CenterIn the event this information is protected by the Federal Confidentiality of Alcohol and Drug Abuse Patient Records regulations: The Federal rules restrict any use of the information to criminally investigate or prosecute any alcohol or drug abuse patient.[facility] CenterIn the event this information is protected by the Federal Confidentiality of Alcohol and Drug Abuse Patient Records regulations: The Federal rules restrict any use of the information to criminally investigate or prosecute any alcohol or drug abuse patient.[facility] CenterIn the event this information is protected by the Federal Confidentiality of Alcohol and Drug Abuse Patient Records regulations: The Federal rules restrict any use of the information to criminally investigate or prosecute any alcohol or drug abuse patient.[facility] CenterIn the event this information is protected by the Federal Confidentiality of Alcohol and Drug Abuse Patient Records regulations: The Federal rules restrict any use of the information to criminally investigate or prosecute any alcohol or drug abuse patient.[facility] CenterIn the event this information is protected by the Federal Confidentiality of Alcohol and Drug Abuse Patient Records regulations: The Federal rules restrict any use of the information to criminally investigate or prosecute any alcohol or drug abuse patient.[facility] CenterIn the event this information is protected by the Federal Confidentiality of Alcohol and Drug Abuse Patient Records regulations: The Federal rules restrict any use of the information to criminally investigate or prosecute any alcohol or drug abuse patient.[facility] CenterIn the event this information is protected by the Federal Confidentiality of Alcohol and Drug Abuse Patient Records regulations: The Federal rules restrict any use of the information to criminally investigate or prosecute any alcohol or drug abuse patient.[facility] CenterIn the event this information is protected by the Federal Confidentiality of Alcohol and Drug Abuse Patient Records regulations: The Federal rules restrict any use of the information to criminally investigate or prosecute any alcohol or drug abuse patient.[facility] CenterIn the event this information is protected by the Federal Confidentiality of Alcohol and Drug Abuse Patient Records regulations: The Federal rules restrict any use of the information to criminally investigate or prosecute any alcohol or drug abuse patient.[facility] CenterIn the event this information is protected by the Federal Confidentiality of Alcohol and Drug Abuse Patient Records regulations: The Federal rules restrict any use of the information to criminally investigate or prosecute any alcohol or drug abuse patient.[facility] CenterIn the event this information is protected by the Federal Confidentiality of Alcohol and Drug Abuse Patient Records regulations: The Federal rules restrict any use of the information to criminally investigate or prosecute any alcohol or drug abuse patient.[facility] CenterIn the event this information is protected by the Federal Confidentiality of Alcohol and Drug Abuse Patient Records regulations: The Federal rules restrict any use of the information to criminally investigate or prosecute any alcohol or drug abuse patient.[facility] CenterIn the event this information is protected by the Federal Confidentiality of Alcohol and Drug Abuse Patient Records regulations: The Federal rules restrict any use of the information to criminally investigate or prosecute any alcohol or drug abuse patient.[facility] CenterIn the event this information is protected by the Federal Confidentiality of Alcohol and Drug Abuse Patient Records regulations: The Federal rules restrict any use of the information to criminally investigate or prosecute any alcohol or drug abuse patient.[facility] CenterIn the event this information is protected by the Federal Confidentiality of Alcohol and Drug Abuse Patient Records regulations: The Federal rules restrict any use of the information to criminally investigate or prosecute any alcohol or drug abuse patient.[facility] CenterIn the event this information is protected by the Federal Confidentiality of Alcohol and Drug Abuse Patient Records regulations: The Federal rules restrict any use of the information to criminally investigate or prosecute any alcohol or drug abuse patient.[facility] CenterIn the event this information is protected by the Federal Confidentiality of Alcohol and Drug Abuse Patient Records regulations: The Federal rules restrict any use of the information to criminally investigate or prosecute any alcohol or drug abuse patient.[facility] CenterIn the event this information is protected by the Federal Confidentiality of Alcohol and Drug Abuse Patient Records regulations: The Federal rules restrict any use of the information to criminally investigate or prosecute any alcohol or drug abuse patient.[facility] CenterIn the event this information is protected by the Federal Confidentiality of Alcohol and Drug Abuse Patient Records regulations: The Federal rules restrict any use of the information to criminally investigate or prosecute any alcohol or drug abuse patient.[facility] CenterIn the event this information is protected by the Federal Confidentiality of Alcohol and Drug Abuse Patient Records regulations: The Federal rules restrict any use of the information to criminally investigate or prosecute any alcohol or drug abuse patient.[facility] CenterIn the event this information is protected by the Federal Confidentiality of Alcohol and Drug Abuse Patient Records regulations: The Federal rules restrict any use of the information to criminally investigate or prosecute any alcohol or drug abuse patient.[facility]In the event this information is protected by the Federal Confidentiality of Alcohol and Drug Abuse Patient Records regulations: The Federal rules restrict any use of the information to criminally investigate or prosecute any alcohol or drug abuse patient.[facility] CenterIn the event this information is protected by the Federal Confidentiality of Alcohol and Drug Abuse Patient Records regulations: The Federal rules restrict any use of the information to criminally investigate or prosecute any alcohol or drug abuse patient.[facility] CenterIn the event this information is protected by the Federal Confidentiality of Alcohol and Drug Abuse Patient Records regulations: The Federal rules restrict any use of the information to criminally investigate or prosecute any alcohol or drug abuse patient.[facility]In the event this information is protected by the Federal Confidentiality of Alcohol and Drug Abuse Patient Records regulations: The Federal rules restrict any use of the information to criminally investigate or prosecute any alcohol or drug abuse patient.[facility]In the event this information is protected by the Federal Confidentiality of Alcohol and Drug Abuse Patient Records regulations: The Federal rules restrict any use of the information to criminally investigate or prosecute any alcohol or drug abuse patient.[facility]In the event this information is protected by the Federal Confidentiality of Alcohol and Drug Abuse Patient Records regulations: The Federal rules restrict any use of the information to criminally investigate or prosecute any alcohol or drug abuse patient.[facility]In the event this information is protected by the Federal Confidentiality of Alcohol and Drug Abuse Patient Records regulations: The Federal rules restrict any use of the information to criminally investigate or prosecute any alcohol or drug abuse patient.[facility]In the event this information is protected by the Federal Confidentiality of Alcohol and Drug Abuse Patient Records regulations: The Federal rules restrict any use of the information to criminally investigate or prosecute any alcohol or drug abuse patient.[facility]In the event this information is protected by the Federal Confidentiality of Alcohol and Drug Abuse Patient Records regulations: The Federal rules restrict any use of the information to criminally investigate or prosecute any alcohol or drug abuse patient.[facility]In the event this information is protected by the Federal Confidentiality of Alcohol and Drug Abuse Patient Records regulations: The Federal rules restrict any use of the information to criminally investigate or prosecute any alcohol or drug abuse patient.[facility]In the event this information is protected by the Federal Confidentiality of Alcohol and Drug Abuse Patient Records regulations: The Federal rules restrict any use of the information to criminally investigate or prosecute any alcohol or drug abuse patient.[facility]In the event this information is protected by the Federal Confidentiality of Alcohol and Drug Abuse Patient Records regulations: The Federal rules restrict any use of the information to criminally investigate or prosecute any alcohol or drug abuse patient.[facility]In the event this information is protected by the Federal Confidentiality of Alcohol and Drug Abuse Patient Records regulations: The Federal rules restrict any use of the information to criminally investigate or prosecute any alcohol or drug abuse patient.[facility]In the event this information is protected by the Federal Confidentiality of Alcohol and Drug Abuse Patient Records regulations: The Federal rules restrict any use of the information to criminally investigate or prosecute any alcohol or drug abuse patient.[facility]In the event this information is protected by the Federal Confidentiality of Alcohol and Drug Abuse Patient Records regulations: The Federal rules restrict any use of the information to criminally investigate or prosecute any alcohol or drug abuse patient.[facility]In the event this information is protected by the Federal Confidentiality of Alcohol and Drug Abuse Patient Records regulations: The Federal rules restrict any use of the information to criminally investigate or prosecute any alcohol or drug abuse patient.[facility]In the event this information is protected by the Federal Confidentiality of Alcohol and Drug Abuse Patient Records regulations: The Federal rules restrict any use of the information to criminally investigate or prosecute any alcohol or drug abuse patient.[facility]In the event this information is protected by the Federal Confidentiality of Alcohol and Drug Abuse Patient Records regulations: The Federal rules restrict any use of the information to criminally investigate or prosecute any alcohol or drug abuse patient.[facility]In the event this information is protected by the Federal Confidentiality of Alcohol and Drug Abuse Patient Records regulations: The Federal rules restrict any use of the information to criminally investigate or prosecute any alcohol or drug abuse patient.[facility]In the event this information is protected by the Federal Confidentiality of Alcohol and Drug Abuse Patient Records regulations: The Federal rules restrict any use of the information to criminally investigate or prosecute any alcohol or drug abuse patient.[facility]In the event this information is protected by the Federal Confidentiality of Alcohol and Drug Abuse Patient Records regulations: The Federal rules restrict any use of the information to criminally investigate or prosecute any alcohol or drug abuse patient.[facility]In the event this information is protected by the Federal Confidentiality of Alcohol and Drug Abuse Patient Records regulations: The Federal rules restrict any use of the information to criminally investigate or prosecute any alcohol or drug abuse patient.[facility]In the event this information is protected by the Federal Confidentiality of Alcohol and Drug Abuse Patient Records regulations: The Federal rules restrict any use of the information to criminally investigate or prosecute any alcohol or drug abuse patient.[facility]In the event this information is protected by the Federal Confidentiality of Alcohol and Drug Abuse Patient Records regulations: The Federal rules restrict any use of the information to criminally investigate or prosecute any alcohol or drug abuse patient.[facility]In the event this information is protected by the Federal Confidentiality of Alcohol and Drug Abuse Patient Records regulations: The Federal rules restrict any use of the information to criminally investigate or prosecute any alcohol or drug abuse patient.[facility]In the event this information is protected by the Federal Confidentiality of Alcohol and Drug Abuse Patient Records regulations: The Federal rules restrict any use of the information to criminally investigate or prosecute any alcohol or drug abuse patient.[facility]In the event this information is protected by the Federal Confidentiality of Alcohol and Drug Abuse Patient Records regulations: The Federal rules restrict any use of the information to criminally investigate or prosecute any alcohol or drug abuse patient.[facility]In the event this information is protected by the Federal Confidentiality of Alcohol and Drug Abuse Patient Records regulations: The Federal rules restrict any use of the information to criminally investigate or prosecute any alcohol or drug abuse patient.[facility]In the event this information is protected by the Federal Confidentiality of Alcohol and Drug Abuse Patient Records regulations: The Federal rules restrict any use of the information to criminally investigate or prosecute any alcohol or drug abuse patient.[facility]In the event this information is protected by the Federal Confidentiality of Alcohol and Drug Abuse Patient Records regulations: The Federal rules restrict any use of the information to criminally investigate or prosecute any alcohol or drug abuse patient.[facility]In the event this information is protected by the Federal Confidentiality of Alcohol and Drug Abuse Patient Records regulations: The Federal rules restrict any use of the information to criminally investigate or prosecute any alcohol or drug abuse patient.[facility]In the event this information is protected by the Federal Confidentiality of Alcohol and Drug Abuse Patient Records regulations: The Federal rules restrict any use of the information to criminally investigate or prosecute any alcohol or drug abuse patient.[facility]In the event this information is protected by the Federal Confidentiality of Alcohol and Drug Abuse Patient Records regulations: The Federal rules restrict any use of the information to criminally investigate or prosecute any alcohol or drug abuse patient.[facility]In the event this information is protected by the Federal Confidentiality of Alcohol and Drug Abuse Patient Records regulations: The Federal rules restrict any use of the information to criminally investigate or prosecute any alcohol or drug abuse patient.[facility]In the event this information is protected by the Federal Confidentiality of Alcohol and Drug Abuse Patient Records regulations: The Federal rules restrict any use of the information to criminally investigate or prosecute any alcohol or drug abuse patient.[facility]In the event this information is protected by the Federal Confidentiality of Alcohol and Drug Abuse Patient Records regulations: The Federal rules restrict any use of the information to criminally investigate or prosecute any alcohol or drug abuse patient.[facility]In the event this information is protected by the Federal Confidentiality of Alcohol and Drug Abuse Patient Records regulations: The Federal rules restrict any use of the information to criminally investigate or prosecute any alcohol or drug abuse patient.[facility]In the event this information is protected by the Federal Confidentiality of Alcohol and Drug Abuse Patient Records regulations: The Federal rules restrict any use of the information to criminally investigate or prosecute any alcohol or drug abuse patient.[facility]In the event this information is protected by the Federal Confidentiality of Alcohol and Drug Abuse Patient Records regulations: The Federal rules restrict any use of the information to criminally investigate or prosecute any alcohol or drug abuse patient.[facility]In the event this information is protected by the Federal Confidentiality of Alcohol and Drug Abuse Patient Records regulations: The Federal rules restrict any use of the information to criminally investigate or prosecute any alcohol or drug abuse patient.[facility]In the event this information is protected by the Federal Confidentiality of Alcohol and Drug Abuse Patient Records regulations: The Federal rules restrict any use of the information to criminally investigate or prosecute any alcohol or drug abuse patient.[facility]In the event this information is protected by the Federal Confidentiality of Alcohol and Drug Abuse Patient Records regulations: The Federal rules restrict any use of the information to criminally investigate or prosecute any alcohol or drug abuse patient.[facility]In the event this information is protected by the Federal Confidentiality of Alcohol and Drug Abuse Patient Records regulations: The Federal rules restrict any use of the information to criminally investigate or prosecute any alcohol or drug abuse patient.[facility]In the event this information is protected by the Federal Confidentiality of Alcohol and Drug Abuse Patient Records regulations: The Federal rules restrict any use of the information to criminally investigate or prosecute any alcohol or drug abuse patient.[facility]In the event this information is protected by the Federal Confidentiality of Alcohol and Drug Abuse Patient Records regulations: The Federal rules restrict any use of the information to criminally investigate or prosecute any alcohol or drug abuse patient.[facility]In the event this information is protected by the Federal Confidentiality of Alcohol and Drug Abuse Patient Records regulations: The Federal rules restrict any use of the information to criminally investigate or prosecute any alcohol or drug abuse patient.[facility]In the event this information is protected by the Federal Confidentiality of Alcohol and Drug Abuse Patient Records regulations: The Federal rules restrict any use of the information to criminally investigate or prosecute any alcohol or drug abuse patient.[facility]In the event this information is protected by the Federal Confidentiality of Alcohol and Drug Abuse Patient Records regulations: The Federal rules restrict any use of the information to criminally investigate or prosecute any alcohol or drug abuse patient.[facility]In the event this information is protected by the Federal Confidentiality of Alcohol and Drug Abuse Patient Records regulations: The Federal rules restrict any use of the information to criminally investigate or prosecute any alcohol or drug abuse patient.[facility]In the event this information is protected by the Federal Confidentiality of Alcohol and Drug Abuse Patient Records regulations: The Federal rules restrict any use of the information to criminally investigate or prosecute any alcohol or drug abuse patient.[facility]In the event this information is protected by the Federal Confidentiality of Alcohol and Drug Abuse Patient Records regulations: The Federal rules restrict any use of the information to criminally investigate or prosecute any alcohol or drug abuse patient.[facility]In the event this information is protected by the Federal Confidentiality of Alcohol and Drug Abuse Patient Records regulations: The Federal rules restrict any use of the information to criminally investigate or prosecute any alcohol or drug abuse patient.[facility]In the event this information is protected by the Federal Confidentiality of Alcohol and Drug Abuse Patient Records regulations: The Federal rules restrict any use of the information to criminally investigate or prosecute any alcohol or drug abuse patient.[facility]In the event this information is protected by the Federal Confidentiality of Alcohol and Drug Abuse Patient Records regulations: The Federal rules restrict any use of the information to criminally investigate or prosecute any alcohol or drug abuse patient.[facility]In the event this information is protected by the Federal Confidentiality of Alcohol and Drug Abuse Patient Records regulations: The Federal rules restrict any use of the information to criminally investigate or prosecute any alcohol or drug abuse patient.[facility]In the event this information is protected by the Federal Confidentiality of Alcohol and Drug Abuse Patient Records regulations: The Federal rules restrict any use of the information to criminally investigate or prosecute any alcohol or drug abuse patient.[facility]In the event this information is protected by the Federal Confidentiality of Alcohol and Drug Abuse Patient Records regulations: The Federal rules restrict any use of the information to criminally investigate or prosecute any alcohol or drug abuse patient.[facility]In the event this information is protected by the Federal Confidentiality of Alcohol and Drug Abuse Patient Records regulations: The Federal rules restrict any use of the information to criminally investigate or prosecute any alcohol or drug abuse patient.[facility]In the event this information is protected by the Federal Confidentiality of Alcohol and Drug Abuse Patient Records regulations: The Federal rules restrict any use of the information to criminally investigate or prosecute any alcohol or drug abuse patient.[facility]In the event this information is protected by the Federal Confidentiality of Alcohol and Drug Abuse Patient Records regulations: The Federal rules restrict any use of the information to criminally investigate or prosecute any alcohol or drug abuse patient.[facility]In the event this information is protected by the Federal Confidentiality of Alcohol and Drug Abuse Patient Records regulations: The Federal rules restrict any use of the information to criminally investigate or prosecute any alcohol or drug abuse patient.[facility] CenterIn the event this information is protected by the Federal Confidentiality of Alcohol and Drug Abuse Patient Records regulations: The Federal rules restrict any use of the information to criminally investigate or prosecute any alcohol or drug abuse patient.[facility] CenterIn the event this information is protected by the Federal Confidentiality of Alcohol and Drug Abuse Patient Records regulations: The Federal rules restrict any use of the information to criminally investigate or prosecute any alcohol or drug abuse patient.[facility] CenterIn the event this information is protected by the Federal Confidentiality of Alcohol and Drug Abuse Patient Records regulations: The Federal rules restrict any use of the information to criminally investigate or prosecute any alcohol or drug abuse patient.[facility] CenterIn the event this information is protected by the Federal Confidentiality of Alcohol and Drug Abuse Patient Records regulations: The Federal rules restrict any use of the information to criminally investigate or prosecute any alcohol or drug abuse patient.[facility] CenterIn the event this information is protected by the Federal Confidentiality of Alcohol and Drug Abuse Patient Records regulations: The Federal rules restrict any use of the information to criminally investigate or prosecute any alcohol or drug abuse patient.[facility] CenterIn the event this information is protected by the Federal Confidentiality of Alcohol and Drug Abuse Patient Records regulations: The Federal rules restrict any use of the information to criminally investigate or prosecute any alcohol or drug abuse patient.[facility] CenterIn the event this information is protected by the Federal Confidentiality of Alcohol and Drug Abuse Patient Records regulations: The Federal rules restrict any use of the information to criminally investigate or prosecute any alcohol or drug abuse patient.[facility] CenterIn the event this information is protected by the Federal Confidentiality of Alcohol and Drug Abuse Patient Records regulations: The Federal rules restrict any use of the information to criminally investigate or prosecute any alcohol or drug abuse patient.[facility] CenterIn the event this information is protected by the Federal Confidentiality of Alcohol and Drug Abuse Patient Records regulations: The Federal rules restrict any use of the information to criminally investigate or prosecute any alcohol or drug abuse patient.[facility] CenterIn the event this information is protected by the Federal Confidentiality of Alcohol and Drug Abuse Patient Records regulations: The Federal rules restrict any use of the information to criminally investigate or prosecute any alcohol or drug abuse patient.[facility] CenterIn the event this information is protected by the Federal Confidentiality of Alcohol and Drug Abuse Patient Records regulations: The Federal rules restrict any use of the information to criminally investigate or prosecute any alcohol or drug abuse patient.[facility] CenterIn the event this information is protected by the Federal Confidentiality of Alcohol and Drug Abuse Patient Records regulations: The Federal rules restrict any use of the information to criminally investigate or prosecute any alcohol or drug abuse patient.[facility] CenterIn the event this information is protected by the Federal Confidentiality of Alcohol and Drug Abuse Patient Records regulations: The Federal rules restrict any use of the information to criminally investigate or prosecute any alcohol or drug abuse patient.[facility] CenterIn the event this information is protected by the Federal Confidentiality of Alcohol and Drug Abuse Patient Records regulations: The Federal rules restrict any use of the information to criminally investigate or prosecute any alcohol or drug abuse patient.[facility] CenterIn the event this information is protected by the Federal Confidentiality of Alcohol and Drug Abuse Patient Records regulations: The Federal rules restrict any use of the information to criminally investigate or prosecute any alcohol or drug abuse patient.[facility] CenterIn the event this information is protected by the Federal Confidentiality of Alcohol and Drug Abuse Patient Records regulations: The Federal rules restrict any use of the information to criminally investigate or prosecute any alcohol or drug abuse patient.[facility] CenterIn the event this information is protected by the Federal Confidentiality of Alcohol and Drug Abuse Patient Records regulations: The Federal rules restrict any use of the information to criminally investigate or prosecute any alcohol or drug abuse patient.[facility] CenterIn the event this information is protected by the Federal Confidentiality of Alcohol and Drug Abuse Patient Records regulations: The Federal rules restrict any use of the information to criminally investigate or prosecute any alcohol or drug abuse patient.[facility] CenterIn the event this information is protected by the Federal Confidentiality of Alcohol and Drug Abuse Patient Records regulations: The Federal rules restrict any use of the information to criminally investigate or prosecute any alcohol or drug abuse patient.[facility] CenterIn the event this information is protected by the Federal Confidentiality of Alcohol and Drug Abuse Patient Records regulations: The Federal rules restrict any use of the information to criminally investigate or prosecute any alcohol or drug abuse patient.[facility] CenterIn the event this information is protected by the Federal Confidentiality of Alcohol and Drug Abuse Patient Records regulations: The Federal rules restrict any use of the information to criminally investigate or prosecute any alcohol or drug abuse patient.[facility] CenterIn the event this information is protected by the Federal Confidentiality of Alcohol and Drug Abuse Patient Records regulations: The Federal rules restrict any use of the information to criminally investigate or prosecute any alcohol or drug abuse patient.[facility] Care Teams (unrecognized sec tion and content) Office Nurse Practitioner Relationship Specialty Start Date End Date Tala Negron MD [address] [place], [place] 657581 PCP - General Family Practice 01/26/17 J Luis Cid [address] [place] [address] Physician Oncology 01/16/17 Indu Lipscomb (Rn), RN [address] [place] [address] Specialty Property Handler Hematology/Oncology 01/16/17 No, Referral Referring 03/29/19 Howard Cody MD [address] [place], [place] [id number] Primary Staff Physician Cardiology 09/07/18 Estefani Bryant MD, [address] [place], [place] [id number] Physician Radiation Oncology 02/17/20 Kami Toure RN Specialty Property Handler Oncology 06/29/20 Vikram Gomez MD [address] [place] [address] Referring General Surgery 08/20/20 Vikram Gomez MD [address] [place], [place] 9746595 Home Care Physician General Surgery 08/20/20 Lesley Oviedo railroad police officerTelephone Station Repairer 02/20/21 Office Nurse Practitioner Relationship Specialty Start Date End Date Tala Negron MD [address] [place], [place] [id number] PCP - General Family Practice 01/26/17 J Luis Cid [address] [place] [address] Physician Oncology 01/16/17 Indu Lipscomb (Rn), RN [address] [place] [address] Specialty Property Handler Hematology/Oncology 01/16/17 No, Referral Referring 03/29/19 Howard Cody MD [address] [place] [address] Primary Staff Physician Cardiology 09/07/18 Estefani Bryant MD, [address] [place], [place] [id number] Physician Radiation Oncology 02/17/20 Kami Toure, RN Specialty Property Handler Oncology 06/29/20 Vikram Gomez MD [address] [place], [place] 5794395 Referring General Surgery 08/20/20 Vikram Gomez MD [address] [place] [address] Home Care Physician General Surgery 08/20/20 Lesley Oviedo railroad police officerTelephone Station Repairer 02/20/21 Office Nurse Practitioner Relationship Specialty Start Date End Date Tala Negron MD [address] [place], [place] [id number] PCP - General Family Practice 01/26/17 J Luis Cid [address] [place], [place] 0847706 Physician Oncology 01/16/17 Indu Lipscomb (Rn), RN [address] [place] [address] Specialty Property Handler Hematology/Oncology 01/16/17 No, Referral Referring 03/29/19 Howard Cody MD [address] [place] [address] Primary Staff Physician Cardiology 09/07/18 Estefani Bryant MD, [address] [place], [place] [phone] Physician Radiation Oncology 02/17/20 Kami Toure RN Specialty Property Handler Oncology 06/29/20 Vikram Gomez MD [address] [place], [place] 7804195 Referring General Surgery 08/20/20 Vikram Gomez MD [address] [place], [place] 5776495 Home Care Physician General Surgery 08/20/20 Lesley Oviedo, railroad police officerTelephone Station Repairer 02/20/21 Office Nurse Practitioner Relationship Specialty Start Date End Date Tala Negron MD [address] [place], [place] [id number] PCP - General Family Practice 01/26/17 J Luis Cid [address] [place] [address] Physician Oncology 01/16/17 Indu Lipscomb (Rn), RN [address] [place] [address] Specialty Property Handler Hematology/Oncology 01/16/17 No, Referral Referring 03/29/19 Howard Cody MD [address] [place] [address] Primary Staff Physician Cardiology 09/07/18 Estefani Bryant MD, [address] [place], [place] [phone] Physician Radiation Oncology 02/17/20 Kami Toure RN Specialty Property Handler Oncology 06/29/20 Vikram Gomez MD [address] [place] [address] Referring General Surgery 08/20/20 Vikram Gomez MD [address] [place] [address] Home Care Physician General Surgery 08/20/20 Lesley Oviedo railroad police officerTelephone Station Repairer 02/20/21 Office Nurse Practitioner Relationship Specialty Start Date End Date Tala Negron MD [address] [place], [place] [id number] PCP - General Family Practice 01/26/17 J Luis Cid [address] [place] [address] Physician Oncology 01/16/17 DeisiIndu li (Rn), RN [address] [place], [place] [id number] Specialty Property Handler Hematology/Oncology 01/16/17 No, Referral Referring 03/29/19 Howard Cody MD [address] [place] [address] Primary Staff Physician Cardiology 09/07/18 Estefani Bryant MD, [address] [place], [place] 255[address] Physician Radiation Oncology 02/17/20 Kami Toure, RN Specialty Property Handler Oncology 06/29/20 Vikram Gomez MD [address] [place], [place] 1996495 Referring General Surgery 08/20/20 Vikram Gomez MD [address] [place], [place] 1743895 Home Care Physician General Surgery 08/20/20 Lesley Oviedo, railroad police officerTelephone Station Repairer 02/20/21 Office Nurse Practitioner Relationship Specialty Start Date End Date Tala Negron MD [address] [place], [place] [id number] PCP - General Family Practice 01/26/17 J Luis Cid [address] [place], [place] 0578706 Physician Oncology 01/16/17 DeisiIndu li (Rn), RN [address] [place] [address] Specialty Property Handler Hematology/Oncology 01/16/17 No, Referral Referring 03/29/19 Howard Cody MD [address] [place] [address] Primary Staff Physician Cardiology 09/07/18 Estefani Bryant MD, [address] [facility] [place], [place] [id number] Physician Radiation Oncology 02/17/20 Kami Toure, RN Specialty Property Handler Oncology 06/29/20 Vikram Gomez MD [address] [place], [place] 8141095 Referring General Surgery 08/20/20 Vikram Gomez MD [address] [place], [place] 3055195 Home Care Physician General Surgery 08/20/20 Lesley Oviedo RN [address] [place], [place] 8161031 Telephone Station Repairer 02/20/21 Office Nurse Practitioner Relationship Specialty Start Date End Date Tala Negron MD [address] [place], [place] [id number] PCP - General Family Practice 01/26/17 J Luis Cid [address] [place], [place] 3889606 Physician Oncology 01/16/17 Indu Lipscomb (Rn), RN [address] [place], [place] 7957795 Specialty Property Handler Hematology/Oncology 01/16/17 No, Referral Referring 03/29/19 Howard Cody MD [address] [place] [address] Primary Staff Physician Cardiology 09/07/18 Estefani Bryant MD, [address] [place], [place] [id number] Physician Radiation Oncology 02/17/20 Kami Toure, RN Specialty Property Handler Oncology 06/29/20 Vikram Gomez MD [address] [place] [address] Referring General Surgery 08/20/20 Vikram Gomez MD [address] [place], [place] 2403495 Home Care Physician General Surgery 08/20/20 Lesley Oviedo, RN [address] [place], [place] 7179831 Telephone Station Repairer 02/20/21 Office Nurse Practitioner Relationship Specialty Start Date End Date Tala Negron MD [address] [place], [place] [id number] PCP - General Family Practice 01/26/17 J Luis Cid [address] [place], [place] 8125806 Physician Oncology 01/16/17 Indu Lipscomb (Rn), RN [address] [place], [place] 8864595 Specialty Property Handler Hematology/Oncology 01/16/17 No, Referral Referring 03/29/19 Howard Cody MD [address] [place], [place] 6043695 Primary Staff Physician Cardiology 09/07/18 Estefani Bryant MD, [address] [place], [place] 488[address]91 Physician Radiation Oncology 02/17/20 Kami Toure RN Specialty Property Handler Oncology 06/29/20 Vikram Gomez MD [address] [place] [address] Referring General Surgery 08/20/20 Vikram Gomez MD [address] [place], [place] 8956895 Home Care Physician General Surgery 08/20/20 Lesley Oviedo RN [address] [place] [address] Telephone Station Repairer 02/20/21 Office Nurse Practitioner Relationship Specialty Start Date End Date Tala Negron MD [address] [place], [place] [id number] PCP - General Family Practice 01/26/17 J Luis Cid [id number] [place] [address] Physician Oncology 01/16/17 Indu Lipscomb (Rn), RN [address] [place] [address] Specialty Property Handler Hematology/Oncology 01/16/17 No, Referral Referring 03/29/19 Howard Cody MD [address] [place] [address] Primary Staff Physician Cardiology 09/07/18 Estefani Bryant MD, [address] [facility] [place], [place] [phone] Physician Radiation Oncology 02/17/20 Kami Toure, DEE Specialty Property Handler Oncology 06/29/20 Vikram Gomez MD [address] [place] [address] Referring General Surgery 08/20/20 Vikram Gomez MD [address] [place] [address] Home Care Physician General Surgery 08/20/20 Lesley Oviedo, RN [address] [place], [place] 3395231 Telephone Station Repairer 02/20/21 Office Nurse Practitioner Relationship Specialty Start Date End Date Tala Negron MD [address] [place], [place] [phone] PCP - General Family Practice 01/26/17 J Luis Cid [address] [place] [address] Physician Oncology 01/16/17 DeisiIndu li (Rn), RN [address] [place], [place] 9135195 Specialty Property Handler Hematology/Oncology 01/16/17 No, Referral Referring 03/29/19 Howard Cody MD [address] [place] [address] Primary Staff Physician Cardiology 09/07/18 Estefani Bryant MD, [address] [place], [place] 84631691 Physician Radiation Oncology 02/17/20 Kami Toure RN Specialty Property Handler Oncology 06/29/20 Vikram Gomez MD [address] [place], [place] 8476995 Referring General Surgery 08/20/20 Vikram Gomez MD [address] [place], [place] 4348295 Home Care Physician General Surgery 08/20/20 Lesley Oviedo, RN [address] [place] [address] Telephone Station Repairer 02/20/21 Office Nurse Practitioner Relationship Specialty Start Date End Date Tala Negron MD [address] [place], [place] [id number] PCP - General Family Practice 01/26/17 J Luis Cid [address] [place] [address] Physician Oncology 01/16/17 DiesiIndu li (Rn), RN [address] [place], [place] 9231695 Specialty Property Handler Hematology/Oncology 01/16/17 No, Referral Referring 03/29/19 Howard Cody MD [address] [place], [place] 5045995 Primary Staff Physician Cardiology 09/07/18 Estefani Bryant MD, [address] [place], [place] 08830691 Physician Radiation Oncology 02/17/20 Kami Toure, RN Specialty Property Handler Oncology 06/29/20 Vikram Gomez MD [address] [place] [address] Referring General Surgery 08/20/20 Vikram Gomez MD [address] [place] [address] Home Care Physician General Surgery 08/20/20 Lesley Oviedo, RN [address] [place], [place] 4309331 Telephone Station Repairer 02/20/21 Daniela Chan DO [address] [place] [address] Primary Staff Physician Cardiology 11/19/21 Office Nurse Practitioner Relationship Specialty Start Date End Date Tala Negron MD [address] [place], [place] [id number] PCP - General Family Practice 01/26/17 J Luis Cid [address] [place], [place] 5876906 Physician Oncology 01/16/17 Indu Lipscomb (Rn), RN [address] [place] [address] Specialty Property Handler Hematology/Oncology 01/16/17 No, Referral Referring 03/29/19 Howard Cody MD [address] [place] [address] Primary Staff Physician Cardiology 09/07/18 Estefani Bryant MD, [address] [place], [place] [address] Physician Radiation Oncology 02/17/20 Kami Toure, RN Specialty Property Handler Oncology 06/29/20 Vikram Gomez MD [address] [place], [place] 9754895 Referring General Surgery 08/20/20 Vikram Gomez MD [address] [place], [place] 4936195 Home Care Physician General Surgery 08/20/20 Lesley Oviedo, RN [address] [place], [place] 8780431 Telephone Station Repairer 02/20/21 Daniela Chan DO [address] [place] [address] Primary Staff Physician Cardiology 11/19/21 Office Nurse Practitioner Relationship Specialty Start Date End Date Tala Negron MD [address] [place], [place] [id number] PCP - General Family Practice 01/26/17 J Luis Cid [address] [place], [place] 0656206 Physician Oncology 01/16/17 Indu Lipscomb (Rn), RN [address] [place], [place] 8418095 Specialty Property Handler Hematology/Oncology 01/16/17 No, Referral Referring 03/29/19 Howard Cody MD [address] [place] [address] Primary Staff Physician Cardiology 09/07/18 Estefani Bryant MD, [address] [place], [place] 78680691 Physician Radiation Oncology 02/17/20 Kami Toure RN Specialty Property Handler Oncology 06/29/20 Vikram Gomez MD [address] [place] [address] Referring General Surgery 08/20/20 Vikram Gomez MD [address] [place] [address] Home Care Physician General Surgery 08/20/20 Lesley Oviedo, RN [address] [place], [place] 7334831 Telephone Station Repairer 02/20/21 Daniela Chan DO [address] [place] [address] Primary Staff Physician Cardiology 11/19/21 Office Nurse Practitioner Relationship Specialty Start Date End Date Tala Negron MD [address] [place], [place] [id number] PCP - General Family Practice 01/26/17 J Luis Cid [address] [place] [address] Physician Oncology 01/16/17 Indu Lipscomb (Rn), RN [address] [place], [place] 0607995 Specialty Property Handler Hematology/Oncology 01/16/17 No, Referral Referring 03/29/19 Howard Cody MD [address] [place], [place] 4289195 Primary Staff Physician Cardiology 09/07/18 Estefani Bryant MD, [address] [place], [place] 65583691 Physician Radiation Oncology 02/17/20 Kami Toure, DEE Specialty Property Handler Oncology 06/29/20 Vikram Gomez MD [address] [place], [place] 6318395 Referring General Surgery 08/20/20 Vikram Gomez MD [address] [place] [address] Home Care Physician General Surgery 08/20/20 Lesley Oviedo, RN [address] [place], [place] 9362931 Telephone Station Repairer 02/20/21 Daniela Chan DO [address] [place] [address] Primary Staff Physician Cardiology 11/19/21 Office Nurse Practitioner Relationship Specialty Start Date End Date Tala Negron MD [address] [place], [place] [id number] PCP - General Family Practice 01/26/17 J Luis Cid [address] [place], [place] 8040706 Physician Oncology 01/16/17 Indu Lipscomb (Rn), RN [address] [place] [address] Specialty Property Handler Hematology/Oncology 01/16/17 No, Referral Referring 03/29/19 Howard Cody MD [address] [place] [address] Primary Staff Physician Cardiology 09/07/18 Estefani Bryant MD, [address] [place], [place] 08173691 Physician Radiation Oncology 02/17/20 Kami Toure RN Specialty Property Handler Oncology 06/29/20 Vikram Gomez MD [address] [place] [address] Referring General Surgery 08/20/20 Vikram Gomez MD [address] [place] [address] Home Care Physician General Surgery 08/20/20 Lesley Oviedo RN [address] [place] [address] Telephone Station Repairer 02/20/21 Daniela Chan DO [address] [place], [place] 5830295 Primary Staff Physician Cardiology 11/19/21 Office Nurse Practitioner Relationship Specialty Start Date End Date Tala Negron MD [address] [place], [place] [id number] PCP - General Family Practice 01/26/17 J Luis Cid [address] [place], [place] 9834106 Physician Oncology 01/16/17 Indu Lipscomb (Rn), RN [address] [place] [address] Specialty Property Handler Hematology/Oncology 01/16/17 No, Referral Referring 03/29/19 Howard Cody MD [address] [place], [place] 0100895 Primary Staff Physician Cardiology 09/07/18 Estefani Bryant MD, [address] [place], [place] 01466691 Physician Radiation Oncology 02/17/20 Kami Toure RN Specialty Property Handler Oncology 06/29/20 Vikram Gomez MD [address] [place] [address] Referring General Surgery 08/20/20 Vikram Gomez MD [address] [place] [address] Home Care Physician General Surgery 08/20/20 Lesley Oviedo RN [address] [place] [address] Telephone Station Repairer 02/20/21 Daniela Chan DO [address] [place] [address] Primary Staff Physician Cardiology 11/19/21 Office Nurse Practitioner Relationship Specialty Start Date End Date Tala Negron MD [address] [place], [place] 637171 PCP - General Family Practice 01/26/17 J Luis Cid [address] [place], [place] 5523506 Physician Oncology 01/16/17 Indu Lipscomb (Rn), RN [address] [place] [address] Specialty Property Handler Hematology/Oncology 01/16/17 No, Referral Referring 03/29/19 Howard Cody MD [address] [place] [address] Primary Staff Physician Cardiology 09/07/18 Estefani Bryant MD, [address] [place], [place] 38150691 Physician Radiation Oncology 02/17/20 Kami Toure, DEE Specialty Property Handler Oncology 06/29/20 Vikram Gomez MD [address] [place] [address] Referring General Surgery 08/20/20 Vikram Gomez MD [address] [place] [address] Home Care Physician General Surgery 08/20/20 Lesley Oviedo, RN [address] [place] [address] Telephone Station Repairer 02/20/21 Daniela Chan DO [address] [place] [address] Primary Staff Physician Cardiology 11/19/21 Office Nurse Practitioner Relationship Specialty Start Date End Date Tala Negron MD [address] [place], [place] [id number] PCP - General Family Practice 01/26/17 J Luis Cid [address] [place] [address] Physician Oncology 01/16/17 Indu Lipscomb (Rn), RN [address] [place] [address] Specialty Property Handler Hematology/Oncology 01/16/17 No, Referral Referring 03/29/19 Howard Cody MD [address] [place], [place] 9508095 Primary Staff Physician Cardiology 09/07/18 Estefani Bryant MD, [address] [place], [place] 57413691 Physician Radiation Oncology 02/17/20 Kami Toure, DEE Specialty Property Handler Oncology 06/29/20 Vikram Gomez MD [address] [place] [address] Referring General Surgery 08/20/20 Vikram Gomez MD [address] [place] [address] Home Care Physician General Surgery 08/20/20 Lesley Oviedo, RN [address] [place] [address] Telephone Station Repairer 02/20/21 Daniela Chan DO [address] [place] [address] Primary Staff Physician Cardiology 11/19/21 Office Nurse Practitioner Relationship Specialty Start Date End Date Tala Negron MD [address] [place], [place] [id number] PCP - General Family Practice 01/26/17 J Luis Cid [address] [place] [address] Physician Oncology 01/16/17 Indu Lipscomb (Rn), RN [address] [place] [address] Specialty Property Handler Hematology/Oncology 01/16/17 No, Referral Referring 03/29/19 Howard Cody MD [address] [place] [address] Primary Staff Physician Cardiology 09/07/18 Estefani Bryant MD, [address] [place], [place] 16460[address] Physician Radiation Oncology 02/17/20 Kami Toure, DEE Specialty Property Handler Oncology 06/29/20 Vikram Gomez MD [address] [place] [address] Referring General Surgery 08/20/20 Vikram Gomez MD [address] [place] [address] Home Care Physician General Surgery 08/20/20 Lesley Oviedo, RN [address] [place], [place] 4963531 Telephone Station Repairer 02/20/21 Daniela Chan DO [address] [place] [address] Primary Staff Physician Cardiology 11/19/21 Office Nurse Practitioner Relationship Specialty Start Date End Date Tala Negron MD [address] [place], [place] [id number] PCP - General Family Practice 01/26/17 J Luis Cid [address] [place] [address] Physician Oncology 01/16/17 Robel Lipscomba (Rn), RN [address] [place], [place] 0870995 Specialty Property Handler Hematology/Oncology 01/16/17 No, Referral Referring 03/29/19 Howard Cody MD [address] [place] [address] Primary Staff Physician Cardiology 09/07/18 Estefani Bryant MD, [address] [facility] [place], [place] [address] Physician Radiation Oncology 02/17/20 Kami Toure RN Specialty Property Handler Oncology 06/29/20 Vikram Gomez MD [address] [place], [place] 9667295 Referring General Surgery 08/20/20 Vikram Gomez MD [address] [place], [place] 0279995 Home Care Physician General Surgery 08/20/20 Lesley Oviedo, RN [address] [place] [address] Telephone Station Repairer 02/20/21 Daniela Chan DO [address] [place], [place] 3623395 Primary Staff Physician Cardiology 11/19/21 Office Nurse Practitioner Relationship Specialty Start Date End Date Tala Negron MD [address] [place], [place] [id number] PCP - General Family Practice 01/26/17 J Luis Cid [address] [place] [address] Physician Oncology 01/16/17 DeisiIndu li (Rn), RN [address] [place], [place] 3713795 Specialty Property Handler Hematology/Oncology 01/16/17 No, Referral Referring 03/29/19 Howard Cody MD [address] [place], [place] [id number] Primary Staff Physician Cardiology 09/07/18 Estefani Bryant MD, [address], [place] 147851 Physician Radiation Oncology 02/17/20 Kami Toure, DEE Specialty Property Handler Oncology 06/29/20 Vikram Gomez MD [address] [place] [address] Referring General Surgery 08/20/20 Vikram Gomez MD [address] [place] [address] Home Care Physician General Surgery 08/20/20 Lesley Oviedo RN [address] [place], [place] [id number] Telephone Station Repairer 02/20/21 Daniela Chan DO [address] [place] [address] Primary Staff Physician Cardiology 11/19/21 Office Nurse Practitioner Relationship Specialty Start Date End Date Tala Negron MD [address] [place], [place] [id number] PCP - General Family Practice 01/26/17 J Luis Cid [address] [place], [place] 1326406 Physician Oncology 01/16/17 Indu Lipscomb (Rn), RN [address] [place], [place] 8791095 Specialty Property Handler Hematology/Oncology 01/16/17 No, Referral Referring 03/29/19 Howard Cody MD [address] [place], [place] [id number] Primary Staff Physician Cardiology 09/07/18 Estefani Bryant MD, [address] [place], [place] [id number] Physician Radiation Oncology 02/17/20 Kami Toure, RN Specialty Property Handler Oncology 06/29/20 Vikram Gomez MD [address] [place], [place] 1010295 Referring General Surgery 08/20/20 Vikram Gomez MD [address] [place], [place] 9679295 Home Care Physician General Surgery 08/20/20 Lesley Oviedo, RN [address] [place] [address] Telephone Station Repairer 02/20/21 Daniela Chan DO [address] [place], [place] [id number] Primary Staff Physician Cardiology 11/19/21 Office Nurse Practitioner Relationship Specialty Start Date End Date Tala Negron MD [address] [place], [place] [id number] PCP - General Family Practice 01/26/17 J Luis Cid [address] [place], [place] 9272206 Physician Oncology 01/16/17 Indu Lipscomb (Rn), RN [address] [place], [place] 5066395 Specialty Property Handler Hematology/Oncology 01/16/17 No, Referral Referring 03/29/19 Howard Cody MD [address] [place], [place] 0939295 Primary Staff Physician Cardiology 09/07/18 Estefani Bryant MD, [address] [place], [place] [id number] Physician Radiation Oncology 02/17/20 Kami Toure, RN Specialty Property Handler Oncology 06/29/20 Vikram Gomez MD [address] [place], [place] 1675495 Referring General Surgery 08/20/20 Vikram Gomez MD [address] [place], [place] 3565695 Home Care Physician General Surgery 08/20/20 Lesley Oviedo, DEE [address] [place], [place] 5606331 Telephone Station Repairer 02/20/21 Daniela Chan DO [address] [place], [place] [id number] Primary Staff Physician Cardiology 11/19/21 Office Nurse Practitioner Relationship Specialty Start Date End Date Tala Negron MD [address] [place], [place] [id number] PCP - General Family Practice 01/26/17 J Luis Cid [address] [place], [place] 2236006 Physician Oncology 01/16/17 Indu Lipscomb (Rn), RN [address] [place], [place] 0616295 Specialty Property Handler Hematology/Oncology 01/16/17 No, Referral Referring 03/29/19 Howard Cody MD [address] [place], [place] 7190095 Primary Staff Physician Cardiology 09/07/18 Estefani Bryant MD, [address] [place], [place] [phone] Physician Radiation Oncology 02/17/20 Kami Toure RN Specialty Property Handler Oncology 06/29/20 Vikram Gomez MD [address] [place] [address] Referring General Surgery 08/20/20 Vikram Gomez MD [address] [place], [place] 5003295 Home Care Physician General Surgery 08/20/20 Lesley Oviedo, RN [address] [place], [place] 3216131 Telephone Station Repairer 02/20/21 Daniela Chan DO [address] [place], [place] 7968395 Primary Staff Physician Cardiology 11/19/21 Office Nurse Practitioner Relationship Specialty Start Date End Date Tala Negron MD [address] [place], [place] [id number] PCP - General Family Practice 01/26/17 J Luis Cid [address] [place] [address] Physician Oncology 01/16/17 Indu Lipscomb (Rn), RN [address] [place], [place] [phone] Specialty Property Handler Hematology/Oncology 01/16/17 No, Referral Referring 03/29/19 Howard Cody MD [address] [place], [place] 5444495 Primary Staff Physician Cardiology 09/07/18 Estefani Bryant MD, [address] [facility] [place] [place] [id number] Physician Radiation Oncology 02/17/20 Kami Toure, DEE Specialty Property Handler Oncology 06/29/20 Vikram Gomez MD [address] [place], [place] 8704995 Referring General Surgery 08/20/20 Vikram Gomez MD [address] [place] [address] Home Care Physician General Surgery 08/20/20 Lesley Oviedo RN [address] [place], [place] 6278031 Telephone Station Repairer 02/20/21 Daniela Chan DO [address] [place] [address] Primary Staff Physician Cardiology 11/19/21 Office Nurse Practitioner Relationship Specialty Start Date End Date Tala Negron MD [address] [place], [place] [phone] PCP - General Family Practice 01/26/17 J Luis Cid [address] [place] [address] Physician Oncology 01/16/17 Indu Lipscomb (Rn), RN [address] [place] [address] Specialty Property Handler Hematology/Oncology 01/16/17 No, Referral Referring 03/29/19 Howard Cody MD [address] [place], [place] 8087695 Primary Staff Physician Cardiology 09/07/18 Estefani Bryant MD, [address] [facility] [place], [place] [phone] Physician Radiation Oncology 02/17/20 Kami Toure RN Specialty Property Handler Oncology 06/29/20 Vikram Gomez MD [address] [place], [place] 1511295 Referring General Surgery 08/20/20 Vikram Gomez MD [address] [place] [address] Home Care Physician General Surgery 08/20/20 Lesley Oviedo RN [address] [place] [address] Telephone Station Repairer 02/20/21 Daniela Chan DO [address] [place], [place] 5926495 Primary Staff Physician Cardiology 11/19/21 Office Nurse Practitioner Relationship Specialty Start Date End Date Tala Negron MD [address] [place], [place] [phone] PCP - General Family Medicine 01/26/17 J Luis Cid [address] [place], [place] 2932606 Physician Oncology 01/16/17 Indu Lipscomb (Rn), RN [address] [place], [place] 8065195 Specialty Property Handler Hematology/Oncology 01/16/17 No, Referral Referring 03/29/19 Howard Cody MD [address] [place], [place] 1679195 Primary Staff Physician Cardiology 09/07/18 Estefani Bryant MD, [address], [place] [phone] Physician Radiation Oncology 02/17/20 Kami Toure RN Specialty Property Handler Oncology 06/29/20 Vikram Gomez MD [address] [place] [address] Referring General Surgery 08/20/20 Vikram Gomez MD [address] [place] [address] Home Care Provider General Surgery 08/20/20 Lesley Oviedo RN [address] [place] [address] Telephone Station Repairer 02/20/21 Daniela Chan DO [address] [place], [place] 5956428 Primary Staff Physician Cardiology 11/19/21 Office Nurse Practitioner Relationship Specialty Start Date End Date Tala Negron MD [address] [place], [place] [id number] PCP - General Family Medicine 01/26/17 J Luis Cid [address] [place], [place] 7484406 Physician Oncology 01/16/17 DeisiIndu li (Rn), RN [address] [place] [address] Specialty Property Handler Hematology/Oncology 01/16/17 No, Referral Referring 03/29/19 Howard Cody MD [address] [place] [address] Primary Staff Physician Cardiology 09/07/18 Estefani Bryant MD, [address], [place] [phone] Physician Radiation Oncology 02/17/20 Kami Toure, DEE Specialty Property Handler Oncology 06/29/20 Vikram Gomez MD [address] [place] [address] Referring General Surgery 08/20/20 Vikram Gomez MD [address] [place] [address] Home Care Provider General Surgery 08/20/20 Lesley Oviedo, RN [address] [place] [address] Telephone Station Repairer 02/20/21 Daniela Chan DO [address] [place] [address] Primary Staff Physician Cardiology 11/19/21 Office Nurse Practitioner Relationship Specialty Start Date End Date Tala Negron MD [address] [place], [place] [id number] PCP - General Family Medicine 01/26/17 J Luis Cid [address] [place], [place] 5222206 Physician Oncology 01/16/17 Indu Lipscomb (Rn), RN [address] [place], [place] 7432295 Specialty Property Handler Hematology/Oncology 01/16/17 No, Referral Referring 03/29/19 Howard Cody MD [address] [place], [place] 3575495 Primary Staff Physician Cardiology 09/07/18 Estefani Bryant MD, [address], [place] 58615691 Physician Radiation Oncology 02/17/20 Kami Toure RN Specialty Property Handler Oncology 06/29/20 Vikram Gomez MD [address] [place], [place] 7330395 Referring General Surgery 08/20/20 Vikram Gomez MD [address] [place] [address] Home Care Provider General Surgery 08/20/20 Lesley Oviedo RN [address] [place], [place] 4282331 Telephone Station Repairer 02/20/21 Daniela Chan DO [address] [place] [address] Primary Staff Physician Cardiology 11/19/21 Office Nurse Practitioner Relationship Specialty Start Date End Date Tala Negron MD [address] [place], [place] [phone] PCP - General Family Medicine 01/26/17 J Luis Cid [address] [place] [address] Physician Oncology 01/16/17 Indu Lipscomb (Rn), RN [address] [place] [address] Specialty Property Handler Hematology/Oncology 01/16/17 No, Referral Referring 03/29/19 Howard Cody MD [address] [place] [address] Primary Staff Physician Cardiology 09/07/18 Estefani Bryant MD, [address] [place], [place] [phone] Physician Radiation Oncology 02/17/20 Kami Toure RN Specialty Property Handler Oncology 06/29/20 Vikram Gomez MD [address] [place] [address] Referring General Surgery 08/20/20 Vikram Gomez MD [address] [place] [address] Home Care Provider General Surgery 08/20/20 Daniela Chan DO [address] [place] [address] Primary Staff Physician Cardiology 11/19/21 Lucas Pastor, DEE [address] [place], [place] 9867531 Telephone Station Repairer Family Medicine 02/20/21 Office Nurse Practitioner Relationship Specialty Start Date End Date Tala Negron MD [address] [place], [place] [id number] PCP - General Family Medicine 01/26/17 J Luis Cid [address] [place] [address] Physician Oncology 01/16/17 Indu Lipscomb (Rn), RN [address] [place], [place] 1486995 Specialty Property Handler Hematology/Oncology 01/16/17 No, Referral Referring 03/29/19 Howard Cody MD [address] [place] [address] Primary Staff Physician Cardiology 09/07/18 Estefani Bryant MD, [address], [place] 85591691 Physician Radiation Oncology 02/17/20 Kami Toure RN Specialty Property Handler Oncology 06/29/20 Vikram Gomez MD [address] [place], [place] 3851395 Referring General Surgery 08/20/20 Vikram Gomez MD [address] [place], [place] 9744995 Home Care Provider General Surgery 08/20/20 Daniela Chan DO [address] [place], [place] [id number] Primary Staff Physician Cardiology 11/19/21 Lucas Pastor, RN [address] [place], [place] 7136431 Telephone Station Repairer Family Medicine 02/20/21 Office Nurse Practitioner Relationship Specialty Start Date End Date Tala Negron MD [address] [place], [place] [id number] PCP - General Family Medicine 01/26/17 J Luis Cid [address] [place], [place] 4936606 Physician Oncology 01/16/17 Indu Lipscomb (Rn), RN [address] [place], [place] 4767195 Specialty Property Handler Hematology/Oncology 01/16/17 No, Referral Referring 03/29/19 Howard Cody MD [address] [place] [address] Primary Staff Physician Cardiology 09/07/18 Estefani Bryant MD, [address] [facility] [place], [place] 46570691 Physician Radiation Oncology 02/17/20 Kami Toure, RN Specialty Property Handler Oncology 06/29/20 Vikram Gomez MD [address] [place] [address] Referring General Surgery 08/20/20 Vikram Gomez MD [address] [place], [place] 5351495 Home Care Provider General Surgery 08/20/20 Daniela Chan DO [address] [place], [place] 3500495 Primary Staff Physician Cardiology 11/19/21 Lucas Pastor, RN [address] [place], [place] 0066131 Telephone Station Repairer Family Medicine 02/20/21 Office Nurse Practitioner Relationship Specialty Start Date End Date Tala Negron MD [address] [place], [place] [id number] PCP - General Family Medicine 01/26/17 J Luis Cid [address] [place] [address] Physician Oncology 01/16/17 Indu Lipscomb (Rn), RN [address] [place] [address] Specialty Property Handler Hematology/Oncology 01/16/17 No, Referral Referring 03/29/19 Howard Cody MD [address] [place] [address] Primary Staff Physician Cardiology 09/07/18 Estefani Bryant MD, MD [address] [facility] [place], [place] 46077691 Physician Radiation Oncology 02/17/20 Kami Toure, RN Specialty Property Handler Oncology 06/29/20 Vikram Gomez MD [address] [place], [place] 7945195 Referring General Surgery 08/20/20 Vikram Gomez MD [address] [place] [address] Home Care Provider General Surgery 08/20/20 Daniela Chan DO [address] [place], [place] 2334895 Primary Staff Physician Cardiology 11/19/21 Lucas Pastor, DEE [address] [place], [place] 6874431 Telephone Station Repairer Family Medicine 02/20/21 Office Nurse Practitioner Relationship Specialty Start Date End Date Tala Negron MD [address] [place], [place] [id number] PCP - General Family Medicine 01/26/17 J Luis Cid [address] [place] [address] Physician Oncology 01/16/17 Indu Lipscomb (Rn), RN [address] [place] [address] Specialty Property Handler Hematology/Oncology 01/16/17 No, Referral Referring 03/29/19 Howard Cody MD [address] [place] [address] Primary Staff Physician Cardiology 09/07/18 Estefani Bryant MD, [address] [facility] [place], [place] 47105691 Physician Radiation Oncology 02/17/20 Doup, Kami, RN Specialty Property Handler Oncology 06/29/20 Vikram Gomez MD [address] [place], [place] 7174095 Referring General Surgery 08/20/20 Vikram Gomez MD [address] [place] [address] Home Care Provider General Surgery 08/20/20 Daniela Chan DO [address] [place] [address] Primary Staff Physician Cardiology 11/19/21 Lucas Pastor, DEE [address] [place], [place] 8850531 Telephone Station Repairer Family Medicine 04/23/22 Office Nurse Practitioner Relationship Specialty Start Date End Date Tala Negron MD [address] [place], [place] [id number] PCP - General Family Medicine 01/26/17 J Luis Cid [address] [place] [address] Physician Oncology 01/16/17 Indu Lipscomb (Rn), RN [address] [place] [address] Specialty Property Handler Hematology/Oncology 01/16/17 No, Referral Referring 03/29/19 Howard Cody MD [address] [place] [address] Primary Staff Physician Cardiology 09/07/18 Estefani Bryant MD, [address] [place], [place] [phone] Physician Radiation Oncology 02/17/20 Kami Toure RN Specialty Property Handler Oncology 06/29/20 Vikram Gomez MD [address] [place], [place] 4748595 Referring General Surgery 08/20/20 Vikram Gomez MD [address] [place], [place] 8002695 Home Care Provider General Surgery 08/20/20 Daniela Chan DO [address] [place], [place] 3796595 Primary Staff Physician Cardiology 11/19/21 Lucas Pastor, DEE [address] [place] [address] Telephone Station Repairer Family Medicine 04/23/22 Office Nurse Practitioner Relationship Specialty Start Date End Date Tala Negron MD [address] [place], [place] [id number] PCP - General Family Medicine 01/26/17 J Luis Cid [address] [place], [place] 4070206 Physician Oncology 01/16/17 Indu Lipscomb (Rn), RN [address] [place], [place] 1728095 Specialty Property Handler Hematology/Oncology 01/16/17 No, Referral Referring 03/29/19 Howard Cody MD [address] [place], [place] 1630195 Primary Staff Physician Cardiology 09/07/18 Estefani Bryant MD, [address] [place], [place] 47037691 Physician Radiation Oncology 02/17/20 Kami Toure, DEE Specialty Property Handler Oncology 06/29/20 Vikram Gomez MD [address] [place], [place] 2977495 Referring General Surgery 08/20/20 Vikram Gomez MD [address] [place], [place] 0581695 Home Care Provider General Surgery 08/20/20 Daniela Chan DO [address] [place], [place] 0072495 Primary Staff Physician Cardiology 11/19/21 Lucas Pastor, RN [address] [place] [address] Telephone Station Repairer Family Medicine 04/23/22 Office Nurse Practitioner Relationship Specialty Start Date End Date Tala Negron MD [address] [place], [place] [id number] PCP - General Family Medicine 01/26/17 J Luis Cid [address] [place], [place] 9016806 Physician Oncology 01/16/17 Indu Lipscomb (Rn), RN [address] [place], [place] 6138895 Specialty Property Handler Hematology/Oncology 01/16/17 No, Referral Referring 03/29/19 Howard Cody MD [address] [place], [place] 9028995 Primary Staff Physician Cardiology 09/07/18 Estefani Bryant MD, [address] [place], [place] 71340691 Physician Radiation Oncology 02/17/20 Kami Toure, DEE Specialty Property Handler Oncology 06/29/20 Vikram Gomez MD [address] [place], [place] 7834395 Referring General Surgery 08/20/20 Vikram Gomez MD [address] [place] [address] Home Care Provider General Surgery 08/20/20 Daniela Chan DO [address] [place], [place] 5011995 Primary Staff Physician Cardiology 11/19/21 Lucas Pastor, DEE [address] [place] [address] Telephone Station Repairer Family Medicine 04/23/22 Office Nurse Practitioner Relationship Specialty Start Date End Date Tala Negron MD [address] [place], [place] 181441 PCP - General Family Medicine 01/26/17 J Luis Cid [address] [place] [address] Physician Oncology 01/16/17 Indu Lipscomb (Rn), RN 0960 [place] [address] Specialty Property Handler Hematology/Oncology 01/16/17 No, Referral Referring 03/29/19 Howard Cody MD [address] [place] [address] Primary Staff Physician Cardiology 09/07/18 Estefani Bryant MD, [address] [place], [place] 76878691 Physician Radiation Oncology 02/17/20 Kami Toure, RN Specialty Property Handler Oncology 06/29/20 Vikram Gomez MD [address] [place] [address] Referring General Surgery 08/20/20 Vikram Gomez MD [address] [place] [address] Home Care Provider General Surgery 08/20/20 Daniela Chan DO [address] [place] [address] Primary Staff Physician Cardiology 11/19/21 Lucas Pastor, DEE [address] [place] [address] Telephone Station Repairer Family Medicine 04/23/22 Office Nurse Practitioner Relationship Specialty Start Date End Date Tala Negron MD [address] [place], [place] [phone] PCP - General Family Medicine 01/26/17 J Luis Cid [address] [place], [place] 8104906 Physician Oncology 01/16/17 Indu Lipscomb (Rn), RN [address] [place] [address] Specialty Property Handler Hematology/Oncology 01/16/17 No, Referral Referring 03/29/19 Howard Cody MD [address] [place] [address] Primary Staff Physician Cardiology 09/07/18 Estefani Bryant MD, [address] [facility] [place], [place] 72065691 Physician Radiation Oncology 02/17/20 Kami Toure, DEE Specialty Property Handler Oncology 06/29/20 Vikram Gomez MD [address] [place] [address] Referring General Surgery 08/20/20 Vikram Gomez MD [address] [place] [address] Home Care Provider General Surgery 08/20/20 Daniela Chan DO [address] [place] [address] Primary Staff Physician Cardiology 11/19/21 Lucas Pastor, DEE [address] [place] [address] Telephone Station Repairer Family Medicine 04/23/22 Office Nurse Practitioner Relationship Specialty Start Date End Date Tala Negron MD [address] [place], [place] [phone] PCP - General Family Medicine 01/26/17 J Luis Cid [address] [place] [address] Physician Oncology 01/16/17 DeisiIndu li (Rn), RN [address] [place] [address] Specialty Property Handler Hematology/Oncology 01/16/17 No, Referral Referring 03/29/19 Howard Cody MD [address] [place] [address] Primary Staff Physician Cardiology 09/07/18 Estefani Bryant MD, [address] [facility] [place] [address] Physician Radiation Oncology 02/17/20 Kami Toure, DEE Specialty Property Handler Oncology 06/29/20 Vikram Gomez MD [address] [place] [address] Referring General Surgery 08/20/20 Vikram Gomez MD [address] [place] [address] Home Care Provider General Surgery 08/20/20 Daniela Chan DO [address] [place] [address] Primary Staff Physician Cardiology 11/19/21 Lucas Pastor, RN [address] [place] [address] Telephone Station Repairer Family Medicine 04/23/22 Office Nurse Practitioner Relationship Specialty Start Date End Date Tala Negron MD [address] [place] [address] PCP - General Family Medicine 01/26/17 J Luis Cid [address] [place] [address] Physician Oncology 01/16/[address] [facility] ([facility] RN [address] [place], [place] 4874195 Specialty Property Handler Hematology/Oncology 01/16/17 No, Referral Referring 03/29/19 Howard Cody MD [address] [place] [address] Primary Staff Physician Cardiology 09/07/18 Estefani Bryant MD, [address] [place], [place] [phone] Physician Radiation Oncology 02/17/20 Kami Toure, DEE Specialty Property Handler Oncology 06/29/20 Vikram Gomez MD [address] [place], [place] 6124795 Referring General Surgery 08/20/20 Vikram Gomez MD [address] [place], [place] 3898595 Home Care Provider General Surgery 08/20/20 Daniela Chan DO [address] [place] [address] Primary Staff Physician Cardiology 11/19/21 Lucas Pastor, DEE [address] [place], [place] 9679331 Telephone Station Repairer Family Medicine 04/23/22 Office Nurse Practitioner Relationship Specialty Start Date End Date Tala Negron MD [address] [place], [place] [id number] PCP - General Family Medicine 01/26/17 J Luis Cid [address] [place], [place] 8666006 Physician Oncology 01/16/17 DeisiIndu li (Rn), RN [address] [place], [place] 9389895 Specialty Property Handler Hematology/Oncology 01/16/17 No, Referral Referring 03/29/19 Howard Cody MD [address] [place], [place] 5842895 Primary Staff Physician Cardiology 09/07/18 Estefani Bryant MD, [address] [place], [place] 96488691 Physician Radiation Oncology 02/17/20 Kami Toure, DEE Specialty Property Handler Oncology 06/29/20 Vikram Gomez MD [address] [place] [address] Referring General Surgery 08/20/20 Vikram Gomez MD [address] [place] [address] Home Care Provider General Surgery 08/20/20 Daniela Chan DO [address] [place], [place] 9034495 Primary Staff Physician Cardiology 11/19/21 Lucas Pastor, RN [address] [place], [place] 8746831 Telephone Station Repairer Family Medicine 04/23/22 Office Nurse Practitioner Relationship Specialty Start Date End Date Tala Negron MD [address] [place], [place] [id number] PCP - General Family Medicine 01/26/17 J Luis Cid [address] [place] [address] Physician Oncology 01/16/17 Indu Lipscomb (Rn), RN [address] [place], [place] 1772095 Specialty Property Handler Hematology/Oncology 01/16/17 No, Referral Referring 03/29/19 Howard Cody MD [address]50 [place] [address] Primary Staff Physician Cardiology 09/07/18 Estefani Bryant MD, [address] [place], [place] 45313691 Physician Radiation Oncology 02/17/20 Kami Toure, RN Specialty Property Handler Oncology 06/29/20 Vikram Gomez MD [address] [place], [place] 8375295 Referring General Surgery 08/20/20 Vikram Gomez MD [address] [place] [address] Home Care Provider General Surgery 08/20/20 Daniela Chan DO [address] [place], [place] 6284495 Primary Staff Physician Cardiology 11/19/21 Lucas Pastor, DEE [address] [place], [place] 7198731 Telephone Station Repairer Family Medicine 04/23/22 Office Nurse Practitioner Relationship Specialty Start Date End Date Tala Negron MD [address] [place], [place] [phone] PCP - General Family Medicine 01/26/17 J Luis Cid [address] [place] [address] Physician Oncology 01/16/17 Indu Lipscomb (Rn), RN 0275 [place] [address] Specialty Property Handler Hematology/Oncology 01/16/17 No, Referral Referring 03/29/19 Howard Cody MD [address] [place], [place] 5042095 Primary Staff Physician Cardiology 09/07/18 Estefani Bryatn MD, [address] [place], [place] 22547691 Physician Radiation Oncology 02/17/20 Kami Toure RN Specialty Property Handler Oncology 06/29/20 Vikram Gomez MD [address] [place], [place] 4070495 Referring General Surgery 08/20/20 Vikram Gomez MD [address] [place] [address] Home Care Provider General Surgery 08/20/20 Daniela Chan DO [address] [place] [address] Primary Staff Physician Cardiology 11/19/21 Lucas Pastor, DEE [address] [place], [place] 3602631 Telephone Station Repairer Family Medicine 04/23/22 Office Nurse Practitioner Relationship Specialty [place] [address] [place] [address] [id number] PCP - General Family Medicine 01/26/17 J Luis Cid [address] [place] [address] Physician Oncology 01/16/17 Indu Lipscomb (Rn), RN [address]30 [place] [address] Specialty Property Handler Hematology/Oncology 01/16/17 No, Referral Referring 03/29/19 Howard Cody MD [address] [place] [address] Primary Staff Physician Cardiology 09/07/18 Estefani Bryant MD, [address] [facility] [place], [place] 43055691 Physician Radiation Oncology 02/17/20 Kami Toure RN Specialty Property Handler Oncology 06/29/20 Vikram oGmez MD [address] [place], [place] 5179595 Referring General Surgery 08/20/20 Vikram Gomez MD [address] [place], [place] 1361995 Home Care Provider General Surgery 08/20/20 Daniela Chan DO [address] [place], [place] 5857695 Primary Staff Physician Cardiology 11/19/21 Lucas Pastor, RN [address] [place], [place] 7922031 Telephone Station Repairer Family Medicine 04/23/22 Office Nurse Practitioner Relationship Specialty Start Date End Date Tala Negron MD [address] [place], [place] [id number] PCP - General Family Medicine 01/26/17 J Luis Cid [address] [place], [place] 2141406 Physician Oncology 01/16/17 Indu Lipscomb (Rn), RN [address] [place], [place] 2309295 Specialty Property Handler Hematology/Oncology 01/16/17 No, Referral Referring 03/29/19 Howard Cody MD [address] [place], [place] 2055595 Primary Staff Physician Cardiology 09/07/18 Estefani Bryant MD, [address] [place] [address] [id number] Physician Radiation Oncology 02/17/20 Kami Toure, RN Specialty Property Handler Oncology 06/29/20 Vikram Gomez MD [address] [place], [place] 9946795 Referring General Surgery 08/20/20 Vikram Goemz MD [address] [place] [address] Home Care Provider General Surgery 08/20/20 Daniela Chan DO [address] [place], [place] [id number] Primary Staff Physician Cardiology 11/19/21 Lucas Pastor, RN [address] [place] [address] Telephone Station Repairer Family Medicine 04/23/22 Office Nurse Practitioner Relationship Specialty Start Date End Date Tala Negron MD [address] [place], [place] [id number] PCP - General Family Medicine 01/26/17 J Luis Cid [address] [place], [place] 8554306 Physician Oncology 01/16/17 Indu Lipscomb (Rn), RN [address] [place], [place] [id number] Specialty Property Handler Hematology/Oncology 01/16/17 No, Referral Referring 03/29/19 Howard Cody MD [address] [place], [place] [id number] Primary Staff Physician Cardiology 09/07/18 Estefani Bryant MD, MD [address] [place], [place] 01985691 Physician Radiation Oncology 02/17/20 Kami Toure, RN Specialty Property Handler Oncology 06/29/20 Vikram Gomez MD [address] [place] [address] Referring General Surgery 08/20/20 Vikram Gomez MD [address] [place] [address] Home Care Provider General Surgery 08/20/20 Daniela Chan DO [address] [place], [place] [id number] Primary Staff Physician Cardiology 11/19/21 Lucas Pastor, DEE [address] [place] [address] Telephone Station Repairer Family Medicine 04/23/22 Office Nurse Practitioner Relationship Specialty Start Date End Date Tala Negron MD [address] [place], [place] [id number] PCP - General Family Medicine 01/26/17 J Luis Cid [address] [place] [address] Physician Oncology 01/16/17 Indu Lipscomb (Rn), RN [address] [place], [place] [id number] Specialty Property Handler Hematology/Oncology 01/16/17 No, Referral Referring 03/29/19 Howard Cody MD [address] [place], [place] [id number] Primary Staff Physician Cardiology 09/07/18 Estefani Bryant MD, [address] [place], [place] [phone] Physician Radiation Oncology 02/17/20 Kami Toure, DEE Specialty Property Handler Oncology 06/29/20 Vikram Gomez MD [address] [place] [address] Referring General Surgery 08/20/20 Vikram Gomez MD [address] [place] [address] Home Care Provider General Surgery 08/20/20 Daniela Chan DO [address] [place] [address] Primary Staff Physician Cardiology 11/19/21 Lucas Pastor, DEE [address] [place] [address] Telephone Station Repairer Family Medicine 04/23/22 Office Nurse Practitioner Relationship Specialty Start Date End Date Tala Negron MD [address] [place], [place] [id number] PCP - General Family Medicine 01/26/17 J Luis Cid [address] [place] [address] Physician Oncology 01/16/17 Indu Lipscomb (Rn), RN [address] [place] [address] Specialty Property Handler Hematology/Oncology 01/16/17 No, Referral Referring 03/29/19 Howard Cody MD [address] [place] [address] Primary Staff Physician Cardiology 09/07/18 Estefani Bryant MD, [address] [place], [place] [id number] Physician Radiation Oncology 02/17/20 Kami Toure, DEE Specialty Property Handler Oncology 06/29/20 Vikram Gomez MD [address] [place] [address] Referring General Surgery 08/20/20 Vikram Gomez MD [address] [place] [address] Home Care Provider General Surgery 08/20/20 Daniela Chan DO [address] [place] [address] Primary Staff Physician Cardiology 11/19/21 Lucas Pastor, DEE [address] [place], [place] 7111131 Telephone Station Repairer Family Medicine 04/23/22 Office Nurse Practitioner Relationship Specialty Start Date End Date Tala Negron MD [address] [place], [place] [id number] PCP - General Family Medicine 01/26/17 J Luis Cid [address] [place] [address] Physician Oncology 01/16/17 Indu Lipscomb (Rn), RN [address] [place] [address] Specialty Property Handler Hematology/Oncology 01/16/17 No, Referral Referring 03/29/19 Howard Cody MD [address] [place] [address] Primary Staff Physician Cardiology 09/07/18 Estefani Bryant MD, [address] [facility] [place] [id number] Physician Radiation Oncology 02/17/20 Kami Toure, DEE Specialty Property Handler Oncology 06/29/20 Vikram Gomez MD [address] [place] [address] Referring General Surgery 08/20/20 Vikram Gomez MD [address] [place] [address] Home Care Provider General Surgery 08/20/20 Daniela Chan DO [address] [place] [address] Primary Staff Physician Cardiology 11/19/21 Lucas Pastor, RN [address] [place], [place] [id number] Telephone Station Repairer Family Medicine 04/23/22 Office Nurse Practitioner Relationship Specialty Start Date End Date Tala Negron MD [address] [place] [address] PCP - General Family Medicine 01/26/17 J Luis Cid [address] [place] [address] Physician Oncology 01/16/17 DeisiIndu li (Rn), RN [address] [place] [address] Specialty Property Handler Hematology/Oncology 01/16/17 No, Referral Referring 03/29/19 Howard Cody MD [address] [place] [address] Primary Staff Physician Cardiology 09/07/18 Estefani Bryant MD, [address] [place], [place] [phone] Physician Radiation Oncology 02/17/20 Kami Toure RN Specialty Property Handler Oncology 06/29/20 Vikram Gomez MD [address] [place], [place] 0836595 Referring General Surgery 08/20/20 Vikram Gomez MD [address] [place] [address] Home Care Provider General Surgery 08/20/20 Daniela Chan DO [address] [place], [place] 0398695 Primary Staff Physician Cardiology 11/19/21 Lucas Pastor, RN [address] [place] [address] Telephone Station Repairer Family Medicine 04/23/22 Office Nurse Practitioner Relationship Specialty Start Date End Date Tala Negron MD [address] [place], [place] [id number] PCP - General Family Medicine 01/26/17 J Luis Cid Physician Oncology 01/16/17 DeisiIndu li (Rn), RN [address] [place] [address] Specialty Property Handler Hematology/Oncology 01/16/17 No, Referral Referring 03/29/19 Howard Cody MD [address] [facility], [place] 6776395 Primary Staff Physician Cardiology 09/07/18 Estefani Bryant MD, [address] [place], [place] [phone] Physician Radiation Oncology 02/17/20 Kami Toure, RN Specialty Property Handler Oncology 06/29/20 Vikram Gomez MD [address] [place] [address] Referring General Surgery 08/20/20 Vikram Gomez MD [address] [place], [place] 2697395 Home Care Provider General Surgery 08/20/20 Daniela Chan DO [address] [place], [place] 8648495 Primary Staff Physician Cardiology 11/19/21 Lucas Pastor, RN [address] [place], [place] 8994831 Telephone Station Repairer Family Medicine 04/23/22 Office Nurse Practitioner Relationship Specialty Start Date End Date Tala Negron MD [address] [place], [place] [id number] PCP - General Family Medicine 01/26/17 J Luis Cid Physician Oncology 01/16/17 Indu Lipscomb (Rn), RN [address] [place], [place] 7262495 Specialty Property Handler Hematology/Oncology 01/16/17 No, Referral Referring 03/29/19 Howard Cody MD [address] [place] [address] Primary Staff Physician Cardiology 09/07/18 Estefani Bryant MD, [address] [place], [place] [phone] Physician Radiation Oncology 02/17/20 Kami Toure, RN Specialty Property Handler Oncology 06/29/20 Vikram Gomez MD [address] [place] [address] Referring General Surgery 08/20/20 Vikram Gomez MD [address] [place] [address] Home Care Provider General Surgery 08/20/20 Daniela Chan DO [address] [place], [place] 1355695 Primary Staff Physician Cardiology 11/19/21 Lucas Pastor, DEE [address] [place], [place] 6646131 Telephone Station Repairer Family Medicine 04/23/22 Office Nurse Practitioner Relationship Specialty Start Date End Date Tala Negron MD [address] [place], [place] [id number] PCP - General Family Medicine 01/26/17 J Luis Cid Physician Oncology 01/16/17 Indu Lipscomb (Rn), RN [address] [place] [address] Specialty Property Handler Hematology/Oncology 01/16/17 No, Referral Referring 03/29/19 Howard Cody MD [address] [place] [address] Primary Staff Physician Cardiology 09/07/18 Estefani Bryant MD, [address] [place], [place] 97848691 Physician Radiation Oncology 02/17/20 Kami Toure, RN Specialty Property Handler Oncology 06/29/20 Vikram Gomez MD [address] [place] [address] Referring General Surgery 08/20/20 Vikram Gomez MD [address] [place], [place] 7921795 Home Care Provider General Surgery 08/20/20 Daniela Chan DO [address] [place] [address] Primary Staff Physician Cardiology 11/19/21 Lucas Pastor, DEE [address] [place] [address] [id number] Telephone Station Repairer Family Medicine 04/23/22 Office Nurse Practitioner Relationship Specialty Start Date End Date Tala Negron MD [address] [place], [place] [id number] PCP - General Family Medicine 01/26/17 J Luis Cid Physician Oncology 01/16/17 Indu Lipscomb (Rn), RN [address] [place], [place] 1945295 Specialty Property Handler Hematology/Oncology 01/16/17 No, Referral Referring 03/29/19 Howard Cody MD [address] [place], [place] 5684795 Primary Staff Physician Cardiology 09/07/18 Estefani Bryant MD, [address] [place], [place] 78758691 Physician Radiation Oncology 02/17/20 Kami Toure, RN Specialty Property Handler Oncology 06/29/20 Vikram Gomez MD [address] [place], [place] 1404395 Referring General Surgery 08/20/20 Vikram Gomez MD [address] [place], [place] 3345495 Home Care Provider General Surgery 08/20/20 Daniela Chan DO [address] [place], [place] 5601995 Primary Staff Physician Cardiology 11/19/21 Lucas Pastor, RN [address] [place] [address] Telephone Station Repairer Family Medicine 04/23/22 Office Nurse Practitioner Relationship Specialty Start Date End Date Tala Negron MD [address] [place], [place] [id number] PCP - General Family Medicine 01/26/17 J Luis Cid Physician Oncology 01/16/17 DeisiIndu li (Rn), RN [address] [place], [place] 4914395 Specialty Property Handler Hematology/Oncology 01/16/17 No, Referral Referring 03/29/19 Howard Cody MD [address] [place] [address] Primary Staff Physician Cardiology 09/07/18 Estefani Bryant MD, [address] [place], [place] 71940691 Physician Radiation Oncology 02/17/20 Kami Toure, DEE Specialty Property Handler Oncology 06/29/20 Vikram Gomez MD [address] [place], [place] 6200695 Referring General Surgery 08/20/20 Vikram Gomez MD [address] [place] [address] Home Care Provider General Surgery 08/20/20 Daniela Chan DO [address] [place] [address] Primary Staff Physician Cardiology 11/19/21 Lucas Pastor, DEE [address] [place] [address] Telephone Station Repairer Family Medicine 04/23/22 Office Nurse Practitioner Relationship Specialty Start Date End Date Tala Negron MD [address] [place], [place] [id number] PCP - General Family Medicine 01/26/17 J Luis Cid Physician Oncology 01/16/17 Indu Lipscomb (Rn), RN [address] [place], [place] 4575695 Specialty Property Handler Hematology/Oncology 01/16/17 No, Referral Referring 03/29/19 Howard Cody MD [address] [place], [place] 3237895 Primary Staff Physician Cardiology 09/07/18 Estefani Bryant MD, [address] [place], [place] 81043691 Physician Radiation Oncology 02/17/20 Kami Toure, DEE Specialty Property Handler Oncology 06/29/20 Vikram Gomez MD [address] [place], [place] 3218295 Referring General Surgery 08/20/20 Vikram Gomez MD [address] [place], [place] 2339795 Home Care Provider General Surgery 08/20/20 Daniela Chan DO [address] [place], [place] 3192295 Primary Staff Physician Cardiology 11/19/21 Lucas Pastor, DEE [address] [place], [place] 3245731 Telephone Station Repairer Family Medicine 04/23/22 Office Nurse Practitioner Relationship Specialty Start Date End Date Tala Negron MD [address] [place], [place] [phone] PCP - General Family Medicine 01/26/17 J Luis Cid Physician Oncology 01/16/17 Indu Lipscomb (Rn), RN [address] [place], [place] 1643395 Specialty Property Handler Hematology/Oncology 01/16/17 No, Referral Referring 03/29/19 Howard Cody MD [address] [place], [place] 6205095 Primary Staff Physician Cardiology 09/07/18 Estefani Bryant MD, [address] [place] [address] Physician Radiation Oncology 02/17/20 Kami Toure RN Specialty Property Handler Oncology 06/29/20 Vikram Gomez MD [address] [place], [place] 7840395 Referring General Surgery 08/20/20 Vikram Gomez MD [address] [place], [place] 1105795 Home Care Provider General Surgery 08/20/20 Daniela Chan DO [address] [place], [place] 6939095 Primary Staff Physician Cardiology 11/19/21 Lucas Pastor, RN [address] [place] [address] Telephone Station Repairer Family Medicine 04/23/22 Office Nurse Practitioner Relationship Specialty Start Date End Date Tala Negron MD [address] [place] [address] PCP - General Family Medicine 01/26/17 J Luis Cid Physician Oncology 01/16/17 Indu Lipscomb (Rn), RN [address] [place], [place] 7861795 Specialty Property Handler Hematology/Oncology 01/16/17 No, Referral Referring 03/29/19 Howard Cody MD [address] [place] [address] Primary Staff Physician Cardiology 09/07/18 Estefani Bryant MD, MD [address] [place], [place] [id number] Physician Radiation Oncology 02/17/20 Kami Toure, RN Specialty Property Handler Oncology 06/29/20 Vikram Gomez MD [address] [place], [place] 0875595 Referring General Surgery 08/20/20 Vikram Gomez MD [address] [place], [place] 6843095 Home Care Provider General Surgery 08/20/20 Daniela Chan DO [address] [place], [place] 1749195 Primary Staff Physician Cardiology 11/19/21 Lucas Pastor, DEE [address] [place], [place] 7586731 Telephone Station Repairer Family Medicine 04/23/22 Office Nurse Practitioner Relationship Specialty Start Date End Date Tala Negron MD [address] [place], [place] [id number] PCP - General Family Medicine 01/26/17 J Luis Cid Physician Oncology 01/16/17 Indu Lipscomb (Rn), RN [address] [place], [place] 4286695 Specialty Property Handler Hematology/Oncology 01/16/17 No, Referral Referring 03/29/19 Howard Cody MD [address] [place] [address] Primary Staff Physician Cardiology 09/07/18 Estefani Bryant MD, [address] [place], [place] 96086691 Physician Radiation Oncology 02/17/20 Kami Toure, RN Specialty Property Handler Oncology 06/29/20 Vikram Gomez MD [address] [place], [place] 8033095 Referring General Surgery 08/20/20 Vikram Gomez MD [address] [place], [place] 9316495 Home Care Provider General Surgery 08/20/20 Daniela Chan DO [address] [place] [address] Primary Staff Physician Cardiology 11/19/21 Lucas Pastor, DEE [address] [place] [address] Telephone Station Repairer Family Medicine 04/23/22 Office Nurse Practitioner Relationship Specialty Start Date End Date Tala Negron MD [address] [place], [place] [phone] PCP - General Family Medicine 01/26/17 J Luis Cid Physician Oncology 01/16/17 DeisiIndu li (Rn), RN [address] [place] [address] Specialty Property Handler Hematology/Oncology 01/16/17 No, Referral Referring 03/29/19 Howard Cody MD [address] [place], [place] 3827295 Primary Staff Physician Cardiology 09/07/18 Estefani Bryant MD, MD [address] [place], [place] 15670691 Physician Radiation Oncology 02/17/20 Doup, Kami, RN Specialty Property Handler Oncology 06/29/20 Vikram Gomez MD [address] [place], [place] 4239695 Referring General Surgery 08/20/20 Vikram Gomez MD [address] [place], [place] 4411695 Home Care Provider General Surgery 08/20/20 Daniela Chan DO [address] [place], [place] 3763895 Primary Staff Physician Cardiology 11/19/21 Lucas Pastor, RN [address] [place], [place] 6837131 Telephone Station Repairer Family Medicine 04/23/22 Office Nurse Practitioner Relationship Specialty [place] [address] [place] [address] [id number] PCP - General Family Medicine 01/26/17 J Luis Cid Physician Oncology 01/16/17 Indu Lipscomb (Rn), RN [address] [place], [place] 3014595 Specialty Property Handler Hematology/Oncology 01/16/17 No, Referral Referring 03/29/19 Howard Cody MD [address] [place], [place] [id number] Primary Staff Physician Cardiology 09/07/18 Estefani Bryant MD, [address] [place], [place] 72795691 Physician Radiation Oncology 02/17/20 Kami Toure RN Specialty Property Handler Oncology 06/29/20 Vikram Gomez MD [address] [place], [place] 8552695 Referring General Surgery 08/20/20 Vikram Gomez MD [address] [place], [place] 4504895 Home Care Provider General Surgery 08/20/20 Daniela Chan DO [address] [place], [place] 6766095 Primary Staff Physician Cardiology 11/19/21 Lucas Pastor, DEE [address] [place] [address] Telephone Station Repairer Family Medicine 04/23/22 Office Nurse Practitioner Relationship Specialty [place] [address] [place] [address] [id number] PCP - General Family Medicine 01/26/17 J Luis Cid Physician Oncology 01/16/17 Indu Lipscomb (Rn), RN [address] [place] [address] Specialty Property Handler Hematology/Oncology 01/16/17 No, Referral Referring 03/29/19 Howard Cody MD [address] [place] [id number] Primary Staff Physician Cardiology 09/07/18 Estefani Bryant MD, [address] [place] [address] Physician Radiation Oncology 02/17/20 Kami Toure RN Specialty Property Handler Oncology 06/29/20 Vikram Gomez MD [address] [place] [address] Referring General Surgery 08/20/20 Vikram Gomez MD [address] [place] [address] Home Care Provider General Surgery 08/20/20 Daniela Chan DO [address] [place] [address] Primary Staff Physician Cardiology 11/19/21 Lucas Pastor, DEE [address] [place], [place] 6599131 Telephone Station Repairer Family Medicine 04/23/22 Office Nurse Practitioner Relationship Specialty Start Date End Date Tala Negron MD [address] [place], [place] [id number] PCP - General Family Medicine 01/26/17 J Luis Cid Physician Oncology 01/16/17 Indu Lipscomb (Rn), RN [address] [place] [address] Specialty Property Handler Hematology/Oncology 01/16/17 No, Referral Referring 03/29/19 Howard Cody MD [address] [place], [place] [id number] Primary Staff Physician Cardiology 09/07/18 Estefani Bryant MD, [address] [place], [place] [phone] Physician Radiation Oncology 02/17/20 Kami Toure RN Specialty Property Handler Oncology 06/29/20 Vikram Gomez MD [address] [place] [address] Referring General Surgery 08/20/20 Vikram Gomez MD [address] [place], [place] 0766895 Home Care Provider General Surgery 08/20/20 Daniela Chan DO [address] [facility] [place] 4852095 Primary Staff Physician Cardiology 11/19/21 Lucas Pastor, DEE [address] [place], [place] 0190731 Telephone Station Repairer Family Medicine 04/23/22 Office Nurse Practitioner Relationship Specialty Start Date End Date Tala Negron MD [address] [place], [place] [phone] PCP - General Family Medicine 01/26/17 J Luis Cid Physician Oncology 01/16/17 Indu Lipscomb (Rn), RN [address] [place], [place] [phone] Specialty Property Handler Hematology/Oncology 01/16/17 No, Referral Referring 03/29/19 Howard Cody MD [address] [place], [place] 9445095 Primary Staff Physician Cardiology 09/07/18 Estefani Bryant MD, [address] [place], [place] 48677691 Physician Radiation Oncology 02/17/20 Kami Toure, RN Specialty Property Handler Oncology 06/29/20 Vikram Gomez MD [address] [place], [place] 1562595 Referring General Surgery 08/20/20 Vikram Gomez MD [address] [place] [address] Home Care Provider General Surgery 08/20/20 Daniela Chan DO [address] [place], [place] 5395495 Primary Staff Physician Cardiology 11/19/21 Lucas Pastor, RN [address] [place], [place] 6913831 Telephone Station Repairer Family Medicine 04/23/22 Office Nurse Practitioner Relationship Specialty Start Date End Date Tala Negron MD [address] [place], [place] [phone] PCP - General Family Medicine 01/26/17 J Luis Cid Physician Oncology 01/16/17 Indu Lipscomb (Rn), RN [address] [place] [id number] Specialty Property Handler Hematology/Oncology 01/16/17 No, Referral Referring 03/29/19 Howard Cody MD [address] [place] [address] Primary Staff Physician Cardiology 09/07/18 Estefani Bryant MD, [address] [place], [place] 11648691 Physician Radiation Oncology 02/17/20 Kami Toure RN Specialty Property Handler Oncology 06/29/20 Vikram Gomez MD [address] [place] [address] Referring General Surgery 08/20/20 Vikram Gomez MD [address] [place] [address] Home Care Provider General Surgery 08/20/20 Daniela Chan DO [address] [place], [place] [id number] Primary Staff Physician Cardiology 11/19/21 Lucas Pastor, RN [address] [place], [place] 2736931 Telephone Station Repairer Family Medicine 04/23/22 Office Nurse Practitioner Relationship Specialty Start Date End Date Tala Negron MD [address] [place], [place] [phone] PCP - General Family Medicine 01/26/17 J Luis Cid Physician Oncology 01/16/17 Indu Lipscomb (Rn), RN [address] [place], [place] 8654995 Specialty Property Handler Hematology/Oncology 01/16/17 No, Referral Referring 03/29/19 Howard Cody MD [address] [place], [place] 4140295 Primary Staff Physician Cardiology 09/07/18 Estefani Bryant MD, MD [address] [place], [place] 25890691 Physician Radiation Oncology 02/17/20 Kami Toure RN Specialty Property Handler Oncology 06/29/20 Vikram Gomez MD [address] [place], [place] 6484995 Referring General Surgery 08/20/20 Vikram Gomez MD [address] [place], [place] 2697095 Home Care Provider General Surgery 08/20/20 Daniela Chan DO [address] [place] [address] Primary Staff Physician Cardiology 11/19/21 Lucas Pastor, RN [address] [place], [place] 5145531 Telephone Station Repairer Family Medicine 04/23/22 Office Nurse Practitioner Relationship Specialty Start Date End Date Tala Negron MD [address] [place], [place] [id number] PCP - General Family Medicine 01/26/17 J Luis Cid Physician Oncology 01/16/17 Indu Lipscomb (Rn), RN [address] [place] [address] Specialty Property Handler Hematology/Oncology 01/16/17 No, Referral Referring 03/29/19 Howard Cody MD [address] [place], [place] [id number] Primary Staff Physician Cardiology 09/07/18 Estefani Bryant MD, MD [address] [place] [address] Physician Radiation Oncology 02/17/20 Kami Toure RN Specialty Property Handler Oncology 06/29/20 Vikram Gomez MD [address] [place] [address] Referring General Surgery 08/20/20 Vikram Gomez MD [address] [place] [address] Home Care Provider General Surgery 08/20/20 Daniela Chan DO [address] [place], [place] [id number] Primary Staff Physician Cardiology 11/19/21 Lucas Pastor, RN [address] [place] [address] Telephone Station Repairer Family Medicine 04/23/22 Office Nurse Practitioner Relationship Specialty Start Date End Date Tala Negron MD [address] [place], [place] [phone] PCP - General Family Medicine 01/26/17 J Luis Cid Physician Oncology 01/16/17 DeisiIndu li (Rn), RN [address] [place] [address] Specialty Property Handler Hematology/Oncology 01/16/17 No, Referral Referring 03/29/19 Howard Cody MD [address] [place], [place] 5446295 Primary Staff Physician Cardiology 09/07/18 Estefani Bryant MD, MD [address] [place] [address] Physician Radiation Oncology 02/17/20 Kami Toure RN Specialty Property Handler Oncology 06/29/20 Vikram Gomez MD [address] [place] [address] Referring General Surgery 08/20/20 Vikram Gomez MD [address] [place] [address] Home Care Provider General Surgery 08/20/20 Daniela Chan DO [address] [place] [address] Primary Staff Physician Cardiology 11/19/21 Lucas Pastor, RN [address] [place] [address] Telephone Station Repairer Family Medicine 04/23/22 Office Nurse Practitioner Relationship Specialty Start Date End Date Tala Negron MD [address] [place], [place] 317671 PCP - General Family Medicine 01/26/17 J Luis Cid Physician Oncology 01/16/[address] [facility] ([facility] RN [address] [place] [address] Specialty Property Handler Hematology/Oncology 01/16/17 No, Referral Referring 03/29/19 Howard Cody MD [address] [place], [place] [id number] Primary Staff Physician Cardiology 09/07/18 Estefani Bryant MD, MD [address] [place] [address] Physician Radiation Oncology 02/17/20 Kami Toure RN Specialty Property Handler Oncology 06/29/20 Vikram Gomez MD [address] [place], [place] [id number] Referring General Surgery 08/20/20 Vikram Gomez MD [address] [place] [address] Home Care Provider General Surgery 08/20/20 Daniela Chan DO [address] [place], [place] [id number] Primary Staff Physician Cardiology 11/19/21 Lucas Pastor RN [address] [place] [address] Telephone Station Repairer Family Medicine 04/23/22 Office Nurse Practitioner Relationship Specialty Start Date End Date Tala Negron MD [address] [place], [place] [id number] PCP - General Family Medicine 01/26/17 J Luis Cid Physician Oncology 01/16/17 DeisiIndu li (Rn), RN [address] [place], [place] [id number] Specialty Property Handler Hematology/Oncology 01/16/17 No, Referral Referring 03/29/19 Howard Cody MD [address] [place] [address] Primary Staff Physician Cardiology 09/07/18 Estefani Bryant MD, MD [address] [place], [place] [phone] Physician Radiation Oncology 02/17/20 Kami Toure RN Specialty Property Handler Oncology 06/29/20 Vikram Gomez MD [address] [place] [address] Referring General Surgery 08/20/20 Vikram Gomez MD [address] [place] [address] Home Care Provider General Surgery 08/20/20 Daniela Chan DO [address] [place] [address] Primary Staff Physician Cardiology 11/19/21 Lucas Pastor, RN [address] [place], [place] 5307031 Telephone Station Repairer Family Medicine 04/23/22 Office Nurse Practitioner Relationship Specialty Start Date End Date Tala Negron MD [address] [place], [place] [id number] PCP - General Family Medicine 01/26/17 J Luis Cid Physician Oncology 01/16/17 Indu Lipscomb (Rn), RN [address] [place], [place] 0399995 Specialty Property Handler Hematology/Oncology 01/16/17 No, Referral Referring 03/29/19 Howard Cody MD [address] [place] [address] Primary Staff Physician Cardiology 09/07/18 Estefani Bryant MD, MD [address] [place] [address] Physician Radiation Oncology 02/17/20 Kami Toure RN Specialty Property Handler Oncology 06/29/20 Vikram Gomez MD [address] [place] [address] Referring General Surgery 08/20/20 Vikram Gomez MD [address] [place] [address] Home Care Provider General Surgery 08/20/20 Daniela Chan DO [address] [place], [place] [id number] Primary Staff Physician Cardiology 11/19/21 Lucas Pastor, RN [address] [place] [address] Telephone Station Repairer Family Medicine 04/23/22 Office Nurse Practitioner Relationship Specialty Start Date End Date Tala Negron MD [address] [place], [place] 111721 PCP - General Family Medicine 01/26/17 J Luis Cid Physician Oncology 01/16/17 Indu Lipscomb (Rn), RN [address] [place], [place] [id number] Specialty Property Handler Hematology/Oncology 01/16/17 No, Referral Referring 03/29/19 Howard Cody MD [address] [facility] [place], [place] [phone] Primary Staff Physician Cardiology 09/07/18 Estefani Bryant MD, MD [address], [place] [id number] Physician Radiation Oncology 02/17/20 Kami Toure RN Specialty Property Handler Oncology 06/29/20 Vikram Gomez MD [address] [place], [place] [phone] Referring General Surgery 08/20/20 Vikram Gomez MD [address] [place], [place] [phone] Home Care Provider General Surgery 08/20/20 Daniela Chan DO [address] [place], [place] [id number] Primary Staff Physician Cardiology 11/19/21 Lucas Pastor, DEE [address] [place], [place] 1788531 Telephone Station Repairer Family Medicine 04/23/22 Office Nurse Practitioner Relationship Specialty Start Date End Date Tala Negron MD [address] [place], [place] [id number] PCP - General Family Medicine 01/26/17 J Luis Cid Physician Oncology 01/16/17 Indu Lipscomb (Rn), RN [address] [place] [address] Specialty Property Handler Hematology/Oncology 01/16/17 No, Referral Referring 03/29/19 Howard Cody MD [address] [place], [place] [id number] Primary Staff Physician Cardiology 09/07/18 Estefani Bryant MD, MD [address] [place], [place] [phone] Physician Radiation Oncology 02/17/20 Kami Toure RN Specialty Property Handler Oncology 06/29/20 Vikram Gomez MD [address] [place], [place] [phone] Referring General Surgery 08/20/20 Vikram Gomez MD [address] [place], [place] 7397195 Home Care Provider General Surgery 08/20/20 Daniela Chan DO [address] [place] [address] Primary Staff Physician Cardiology 11/19/21 Lucas Pastor, RN [address] [place] [address] Telephone Station Repairer Family Medicine 04/23/22 Office Nurse Practitioner Relationship Specialty Start Date End Date Tala Negron MD [address] [place], [place] [id number] PCP - General Family Medicine 01/26/17 J Luis Cid Physician Oncology 01/16/17 DeisiIndu li (Rn), RN [address] [place], [place] [phone] Specialty Property Handler Hematology/Oncology 01/16/17 No, Referral Referring 03/29/19 Howard Cody MD [address] [place], [place] [id number] Primary Staff Physician Cardiology 09/07/18 Estefani Bryant MD, MD [address] [place], [place] [phone] Physician Radiation Oncology 02/17/20 Kami Toure RN Specialty Property Handler Oncology 06/29/20 Vikram Gomez MD [address] [place], [place] [phone] Referring General Surgery 08/20/20 Vikram Gomez MD [address] [place], [place] 7031795 Home Care Provider General Surgery 08/20/20 Daniela Chan DO [address] [place], [place] [id number] Primary Staff Physician Cardiology 11/19/21 Lucas Pastor, RN [address] [place], [place] [phone] Telephone Station Repairer Family Medicine 04/23/22 Office Nurse Practitioner Relationship Specialty Start Date End Date Tala Negron MD [address] [place], [place] [phone] PCP - General Family Medicine 01/26/17 J Luis Cid Physician Oncology 01/16/17 DeisiIndu li (Rn), RN [address] [place] [address] Specialty Property Handler Hematology/Oncology 01/16/17 No, Referral Referring 03/29/19 Howard Cody MD [address] [place] [address] Primary Staff Physician Cardiology 09/07/18 Estefani Bryant MD, MD [address], [place] [phone] Physician Radiation Oncology 02/17/20 Kami Toure RN Specialty Property Handler Oncology 06/29/20 Vikram Gomez MD [address] [place], [place] [phone] Referring General Surgery 08/20/20 Vikram Gomez MD [address] [place], [place] 2396695 Home Care Provider General Surgery 08/20/20 Daniela Chan DO [address] [place], [place] [id number] Primary Staff Physician Cardiology 11/19/21 Lucas Pastor, DEE [address] [place], [place] [phone] Telephone Station Repairer Family Medicine 04/23/22 Office Nurse Practitioner Relationship Specialty [place] [address] [place] [address] [phone] PCP - General Family Medicine 01/26/17 J Luis Cid Physician Oncology 01/16/17 DeisiIndu li (Rn), RN [address] [place], [place] [phone] Specialty Property Handler Hematology/Oncology 01/16/17 No, Referral Referring 03/29/19 Howard Cody MD [address] [place], [place] [phone] Primary Staff Physician Cardiology 09/07/18 Estefani Bryant MD, [address], [place] [phone] Physician Radiation Oncology 02/17/20 Kami Toure, DEE Specialty Property Handler Oncology 06/29/20 Vikram Gomez MD [address] [place] [address] Referring General Surgery 08/20/20 Vikram Gomez MD [address] [place], [place] 9623295 Home Care Provider General Surgery 08/20/20 Daniela Chan DO [address] [place], [place] 1731495 Primary Staff Physician Cardiology 11/19/21 Lucas Pastor, RN [address] [place], [place] 4454231 Telephone Station Repairer Family Medicine 04/23/22 Office Nurse Practitioner Relationship Specialty Start Date End Date Tala Negron MD [address] [place], [place] [phone] PCP - General Family Medicine 01/26/17 J Luis Cid Physician Oncology 01/16/17 Indu Lipscomb (Rn), RN [address] [place], [place] [phone] Specialty Property Handler Hematology/Oncology 01/16/17 No, Referral Referring 03/29/19 Howard Cody MD [address] [place], [place] [phone] Primary Staff Physician Cardiology 09/07/18 Estefani Bryant MD, [address], [place] [phone] Physician Radiation Oncology 02/17/20 Kami Toure, RN Specialty Property Handler Oncology 06/29/20 Vikram Gomez MD [address] [place] [address] Referring General Surgery 08/20/20 Vikram Gomez MD [address] [place], [place] 7655195 Home Care Provider General Surgery 08/20/20 Daniela Chan DO [address] [place], [place] [phone] Primary Staff Physician Cardiology 11/19/21 Lucas Pastor, RN [address] [place] [address] Telephone Station Repairer Family Medicine 04/23/22 Office Nurse Practitioner Relationship Specialty [place] [address] [place] [address] PCP - General Family Medicine 01/26/17 J Luis Cid Physician Oncology 01/16/17 Indu Lipscomb (Rn), RN [address] [place], [place] [phone] Specialty Property Handler Hematology/Oncology 01/16/17 No, Referral Referring 03/29/19 [place] [address] [place] [address] [id number] Primary Staff Physician Cardiology 09/07/18 Estefani Bryant MD, MD [address], [place] [phone] Physician Radiation Oncology 02/17/20 Kami Toure, RN Specialty Property Handler Oncology 06/29/20 [place] [address] [place] [address] [phone] Referring General Surgery 08/20/20 Vikram Gomez MD [address] [place] [address] [phone] Home Care Provider General Surgery 08/20/20 Daniela Chan DO [address] [place] [address] [id number] Primary Staff Physician Cardiology 11/19/21 Lucas Pastor, DEE [address] [place] [address] Telephone Station Repairer Family Medicine 04/23/22 Office Nurse Practitioner Relationship Specialty Start Date End Date Tala Negron MD [address] [place] [address] [phone] PCP - General Family Medicine 01/26/17 J Luis Cid Physician Oncology 01/16/17 Indu Lipscomb (Rn), [place] [address] [place] [address] [id number] Specialty Property Handler Hematology/Oncology 01/16/17 No, Referral Referring 03/29/19 [place] [address] [place] [address] [phone] Primary Staff Physician Cardiology 09/07/18 Estefani Bryant MD, [address] [place] [address] Physician Radiation Oncology 02/17/20 Kami Toure, RN Specialty Property Handler Oncology 06/29/20 Vikram Gomez MD [address] [place], [place] [phone] Referring General Surgery 08/20/20 Vikram Gomez MD [address] [place], [place] 7042595 Home Care Provider General Surgery 08/20/20 Daniela Chan DO [address] [place], [place] [id number] Primary Staff Physician Cardiology 11/19/21 Lucas Pastor, DEE [address] [place] [address] Telephone Station Repairer Family Medicine 04/23/22 Office Nurse Practitioner Relationship Specialty Start Date End Date Tala Negron MD [address] [place] [address] PCP - General Family Medicine 01/26/17 J Luis Cid Physician Oncology 01/16/17 Indu Lipscomb (Rn), RN [address] [place], [place] [phone] Specialty Property Handler Hematology/Oncology 01/16/17 No, Referral Referring 03/29/19 Howard Cody MD [address] [place], [place] [phone] Primary Staff Physician Cardiology 09/07/18 Estefani Bryant MD, [address] [facility] [place] [phone] Physician Radiation Oncology 02/17/20 Kami Toure, RN Specialty Property Handler Oncology 06/29/20 Vikram Gomez MD [address] [place], [place] [phone] Referring General Surgery 08/20/20 Vikram Gomez MD [address] [place], [place] 3699495 Home Care Provider General Surgery 08/20/20 Daniela Chan DO [address] [place] [address] Primary Staff Physician Cardiology 11/19/21 Lucas Pastor, RN [address] [place], [place] 5421931 Telephone Station Repairer Family Medicine 04/23/22 Office Nurse Practitioner Relationship Specialty Start Date End Date Tala Negron MD [address] [place], [place] [phone] PCP - General Family Medicine 01/26/17 J Luis Cid Physician Oncology 01/16/17 Indu Lipscomb (Rn), RN [address] [place], [place] [phone] Specialty Property Handler Hematology/Oncology 01/16/17 No, Referral Referring 03/29/19 Howard Cody MD [address] [place], [place] [phone] Primary Staff Physician Cardiology 09/07/18 Estefani Bryant MD, [address] [place] [place] 389051 Physician Radiation Oncology 02/17/20 Kami Toure, RN Specialty Property Handler Oncology 06/29/20 Vikram Gomez MD [address] [place], [place] [phone] Referring General Surgery 08/20/20 Vikram Gomez MD [address] [place], [place] 8390595 Home Care Provider General Surgery 08/20/20 Dainela Chan DO [address] [place] [address] Primary Staff Physician Cardiology 11/19/21 Lucas Pastor RN [address] [place] [address] [id number] Telephone Station Repairer Family Medicine 04/23/22 Office Nurse Practitioner Relationship Specialty Start Date End Date Tala Negron MD [address] [place], [place] [phone] PCP - General Family Medicine 01/26/17 J Luis Cid Physician Oncology 01/16/17 Indu Lipscomb (Rn), RN [address] [place], [place] [phone] Specialty Property Handler Hematology/Oncology 01/16/17 No, Referral Referring 03/29/19 Howard Cody MD [address] [place] [address] Primary Staff Physician Cardiology 09/07/18 Estefani Bryant MD, MD [address] [place], [place] [phone] Physician Radiation Oncology 02/17/20 Kami Toure RN Specialty Property Handler Oncology 06/29/20 Vikram Gomez MD [address] [place], [place] [phone] Referring General Surgery 08/20/20 Vikram Gomez MD [address] [place] [address] Home Care Provider General Surgery 08/20/20 Daniela Chan DO [address] [place] [address] Primary Staff Physician Cardiology 11/19/21 Lucas Pastor, DEE [address] [place] [address] Telephone Station Repairer Family Medicine 04/23/22 Office Nurse Practitioner Relationship Specialty Start Date End Date Tala Negron MD [address] [place], [place] [phone] PCP - General Family Medicine 01/26/17 J Luis Cid Physician Oncology 01/16/17 Indu Lipscomb (Rn), RN [address] [place], [place] 0619395 Specialty Property Handler Hematology/Oncology 01/16/17 No, Referral Referring 03/29/19 Howard Cody MD [address] [place], [place] [phone] Primary Staff Physician Cardiology 09/07/18 Estefani Bryant MD, MD [address] [place], [place] [phone] Physician Radiation Oncology 02/17/20 Doup, Kami, RN Specialty Property Handler Oncology 06/29/20 Vikram Gomez MD [address] [place], [place] 6496695 Referring General Surgery 08/20/20 Vikram Gomez MD [address] [place], [place] 6046395 Home Care Provider General Surgery 08/20/20 Daniela Chan DO [address] [place], [place] [phone] Primary Staff Physician Cardiology 11/19/21 Lucas Pastor RN [address] [place] [address] 7010031 Telephone Station Repairer Family Medicine 04/23/22 Office Nurse Practitioner Relationship Specialty [place] [address] [place] [address] [id number] PCP - General Family Medicine 01/26/17 J Luis Cid Physician Oncology 01/16/17 Indu Lipscomb (Rn), RN [address] [place], [place] [phone] Specialty Property Handler Hematology/Oncology 01/16/17 No, Referral Referring 03/29/19 Howard Cody MD [address] [facility] [place], [place] [phone] Primary Staff Physician Cardiology 09/07/18 Estefani Bryant MD, MD [address] [place], [place] [phone] Physician Radiation Oncology 02/17/20 Kami Toure RN Specialty Property Handler Oncology 06/29/20 Vikram Gomez MD [address] [place], [place] [phone] Referring General Surgery 08/20/20 Vikram Gomez MD [address] [place], [place] 2312195 Home Care Provider General Surgery 08/20/20 Daniela Chan DO [address] [place], [place] [phone] Primary Staff Physician Cardiology 11/19/21 Lucas Pastor, DEE [address] [place], [place] 8736731 Telephone Station Repairer Family Medicine 04/23/22 Office Nurse Practitioner Relationship Specialty Start Date End Date Tala Negron MD [address] [place], [place] [phone] PCP - General Family Medicine 01/26/17 J Luis Cid Physician Oncology 01/16/17 Indu Lipscomb (Rn), RN [address] [place], [place] [phone] Specialty Property Handler Hematology/Oncology 01/16/17 No, Referral Referring 03/29/19 Howard Cody MD [address] [place], [place] [id number] Primary Staff Physician Cardiology 09/07/18 Estefani Bryant MD, MD [address] [place] [address] Physician Radiation Oncology 02/17/20 Kami Toure RN Specialty Property Handler Oncology 06/29/20 Vikram Gomez MD [address] [place] [address] Referring General Surgery 08/20/20 Vikram Gomez MD [address] [place], [place] 9360795 Home Care Provider General Surgery 08/20/20 Daniela Chan DO [address] [place], [place] 1412795 Primary Staff Physician Cardiology 11/19/21 Lucas Pastor, RN [address] [place], [place] 4408631 Telephone Station Repairer Family Medicine 04/23/22 Office Nurse Practitioner Relationship Specialty Start Date End Date Tala Negron MD [address] [place], [place] [phone] PCP - General Family Medicine 01/26/17 J Luis Cid Physician Oncology 01/16/17 Indu Lipscomb (Rn), RN [address] [place], [place] [phone] Specialty Property Handler Hematology/Oncology 01/16/17 No, Referral Referring 03/29/19 Howard Cody MD [address] [place], [place] 1677995 Primary Staff Physician Cardiology 09/07/18 Estefani Bryant MD, MD [address] [place], [place] [phone] Physician Radiation Oncology 02/17/20 Kami Toure RN Specialty Property Handler Oncology 06/29/20 Vikram Gomez MD [address] [place], [place] [phone] Referring General Surgery 08/20/20 Vikram Gomez MD [address] [place] [address] Home Care Provider General Surgery 08/20/20 Daniela Chan DO [address], [place] [phone] Primary Staff Physician Cardiology 11/19/21 Lucas Pastor, DEE [address] [place], [place] [phone] Telephone Station Repairer Family Medicine 04/23/22 Office Nurse Practitioner Relationship Specialty Start Date End Date Tala Negron MD [address] [place], [place] 842001 PCP - General Family Medicine 01/26/17 J Luis Cid Physician Oncology 01/16/17 Indu Lipscomb (Rn), RN [address] [place], [place] [phone] Specialty Property Handler Hematology/Oncology 01/16/17 No, Referral Referring 03/29/19 Howard Cody MD [address] [place] [address] Primary Staff Physician Cardiology 09/07/18 Estefani Bryant MD, [address] [place], [place] 510351 Physician Radiation Oncology 02/17/20 Kami Toure RN Specialty Property Handler Oncology 06/29/20 Vikram Gomez MD [address] [place] [address] Referring General Surgery 08/20/20 Vikram Gomez MD [address] [place] [address] Home Care Provider General Surgery 08/20/20 Daniela Chan DO [address] [facility] [place] [place] 6464195 Primary Staff Physician Cardiology 11/19/21 Lucas Pastor, RN [address] [place], [place] 3904831 Telephone Station Repairer Family Medicine 04/23/22 Office Nurse Practitioner Relationship Specialty Start Date End Date Tala Negron MD [address] [place], [place] [phone] PCP - General Family Medicine 01/26/17 J Luis Cid Physician Oncology 01/16/17 DeisiIndu li (Rn), RN [address] [place], [place] [phone] Specialty Property Handler Hematology/Oncology 01/16/17 No, Referral Referring 03/29/19 Howard Cody MD [address] [place] [address] Primary Staff Physician Cardiology 09/07/18 Estefani Bryant MD, [address] [place], [place] [phone] Physician Radiation Oncology 02/17/20 Kami Toure RN Specialty Property Handler Oncology 06/29/20 Vikram Gomez MD [address] [place] [address] Referring General Surgery 08/20/20 Vikram Gomez MD [address] [place] [address] Home Care Provider General Surgery 08/20/20 Daniela Chan DO [address] [facility] [place] [place] [phone] Primary Staff Physician Cardiology 11/19/21 Lucas Pastor, RN [address] [place], [place] 9362631 Telephone Station Repairer Family Medicine 04/23/22 Office Nurse Practitioner Relationship Specialty Start Date End Date Tala Negron MD [address] [place], [place] [phone] PCP - General Family Medicine 01/26/17 J Luis Cid Physician Oncology 01/16/17 DeisiIndu li (Rn), RN [address] [place] [address] Specialty Property Handler Hematology/Oncology 01/16/17 No, Referral Referring 03/29/19 Howard Cody MD [address] [facility] [place] [place] 1482795 Primary Staff Physician Cardiology 09/07/18 Estefani Bryant MD, MD [address] [place], [place] [phone] Physician Radiation Oncology 02/17/20 Kami Toure RN Specialty Property Handler Oncology 06/29/20 Vikram Gomez MD [address] [place], [place] [phone] Referring General Surgery 08/20/20 Vikram Gomez MD [address] [place], [place] 6437895 Home Care Provider General Surgery 08/20/20 Daniela Chan DO [address] [place], [place] [phone] Primary Staff Physician Cardiology 11/19/21 Lucas Pastor, RN [address] [place], [place] 7507531 Telephone Station Repairer Family Medicine 04/23/22 Office Nurse Practitioner Relationship Specialty Start Date End Date Tala Negron MD [address] [place], [place] [phone] PCP - General Family Medicine 01/26/17 J Luis Cid Physician Oncology 01/16/17 Indu Lipscomb (Rn), RN [address] [place] [id number] Specialty Property Handler Hematology/Oncology 01/16/17 No, Referral Referring 03/29/19 [place] [address] [place] [address] Primary Staff Physician Cardiology 09/07/18 Estefani Bryant MD, MD [address] [place], [place] [phone] Physician Radiation Oncology 02/17/20 Kami Toure RN Specialty Property Handler Oncology 06/29/20 Vikram Gomez MD [address] [place] [address] Referring General Surgery 08/20/20 Vikram Gomez MD [address] [place] [address] Home Care Provider General Surgery 08/20/20 Daniela Chan DO [address] [place] [address] Primary Staff Physician Cardiology 11/19/21 Lucas Pastor, RN [address] [place], [place] [phone] Telephone Station Repairer Family Medicine 04/23/22 Office Nurse Practitioner Relationship Specialty Start Date End Date Tala Negron MD [address] [place], [place] [phone] PCP - General Family Medicine 01/26/17 J Luis Cid Physician Oncology 01/16/17 DeisiIndu li (Rn), RN [address] [place], [place] [phone] Specialty Property Handler Hematology/Oncology 01/16/17 No, Referral Referring 03/29/19 Howard Cody MD [address] [facility] [place] [place] 1977595 Primary Staff Physician Cardiology 09/07/18 Estefani Bryant MD, MD [address] [place], [place] [phone] Physician Radiation Oncology 02/17/20 Kami Toure RN Specialty Property Handler Oncology 06/29/20 Vikram Gomez MD [address] [place], [place] [phone] Referring General Surgery 08/20/20 Vikram Gomez MD [address] [place], [place] [phone] Home Care Provider General Surgery 08/20/20 Daniela Chan DO [address] [place] [address] Primary Staff Physician Cardiology 11/19/21 Lucas Pastor, RN [address] [place] [address] Telephone Station Repairer Family Medicine 04/23/22 Reason for Visit (unrecogniz ed section and content) Specialty Diagnoses / Procedures Referred By Eduardo westbrook Referred To Contact Physical Therapy / PHYSICAL THERAPY Diagnoses Fall in home, initial encounter; Left upper arm pain; Unsteady gait when walking, order in Review Tab Procedures NEW RS PT GAIT TesttedTracy [address] [place] [address] Anselmo Prather, PT [address] [place] [address] Referral ID Status Reason Start Date Expiration Date V isits Requested Visits Authorized [id number] Authorized 06/22/2022 06/21/2023 99 99 Reason Onset [...] CT Specialty Diagnoses / Procedures [facility] To Contact CT IMAGING Diagnoses 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, estrogen receptor positive (HCC) 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) Procedures CT CHEST W IVCON DIAGNOSTIC COMPUTED TOMOGRAPHY THORAX W/CONTRAST Nimisha Aleman APRN.CLIENT TECHNICAL SPECIALIST [address] [place] [address] Ct Imaging Referral ID Status Reason Start Date Expiration Date V isits Requested Visits Authorized [id number] Closed Auto-Generate d Referral 11/11/2021 12/11/2022 1 1 Reason Onset Date Comments Insight Escalation 11/25/2021 Insight [facility] questionnaire triggered escalation Reason Comments Follow Up Reason Comments Patient Assistance Reason Comments Medication Assistance Program Pfizer for Ibrance Specialty Diagnoses / Procedures [facility] Referred To Contact CT IMAGING Diagnoses 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, estrogen receptor positive (HCC) Lung nodules Cough Procedures CT CHEST W IVCON DIAGNOSTIC COMPUTED TOMOGRAPHY THORAX W/CONTRAST Nimisha Aleman APRN.CLIENT TECHNICAL SPECIALIST [address] [place] [address] Ct Imaging Referral ID Status Reason Start Date Expiration Date V isits Requested Visits Authorized [id number] Closed Auto-Generate d Referral 11/22/2021 12/22/2022 1 [...] for orthotics Procedures NEW RS PT ORTHOTIC Tracy Mckeon [address] [facility] [place] [address] Anselmo Prather, PT [address] [place] [address] Referral ID Status Reason Start Date Expiration Date V isits Requested Visits Authorized [id number] Authorized 06/22/2022 06/21/2023 99 99 Reason Onset [...] COMPLEX 45 MINS Tala Negron MD [address] [place] [address] [facility] [place] [address] [place] [address] Referral ID Status Reason Start Date Expiration Date Visits Requested Visits Authorized [id number] Authorized PCP Requested Referral Auto-Generate d Referral 08/19/2022 08/19/2023 99 99 Reason Comments Physical Therapy Reason Comments Insurance Authorization Fluorouracil 5% cream Reason Comments CMN- PAP supplies Luciana Torres/Castillo- 02/20 Reason Comments Hyperparathyroidism Follow up Reason Comments [...] disease (HCC) Procedures CONSULT TO NEPHROLOGY OFFICE/OUTPATIENT [facility] MDM 60-74 MINUTES PodlogMelanie sanabria BEAM DOFFER.CLIENT TECHNICAL SPECIALIST [address] [place] [address] Referral ID Status Reason Start Date Expiration Date V isits Requested Visits Authorized [id number] Closed PCP Requested Referral 02/16/2023 02/16/2024 1 1 Reason Comments Results Mammogram. Needs fol low-up imaging. Reason Comments Valvular Heart Disease Reason Comments Appointment Triluminate (TV Clip )/ TTVR (TRISCEND) Eval Reason Comments Appointment Triluminate (TV Clip )/ TTVR (TRISCEND) Eval sched for 06/04, 06/05 and 06/08. 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) Abnormal radionuclide bone scan Procedures MRI HIP WO/W IVCON RIGHT MRI ANY JT LOWER EXTREM W/O & W/CONTRAST MATRL Nimisha Aleman, BEAM DOFFER.CLIENT TECHNICAL SPECIALIST [address] [place] [address] [place] [id number] Referral ID Status Reason Start Date Expiration Date V isits Requested Visits Authorized [id number] Closed Auto-Generate d Referral 11/07/2022 12/07/2023 1 1 Reason Comments Radiology US Specialty Diagnoses / Procedures [facility] Referred To Contact US IMAGING Diagnoses Stage 3b chronic kidney disease (HCC) Essential hypertension Chronic diastolic CHF (congestive heart failure) (HCC) Procedures US KIDNEY/BLADDER US RETROPERITONEAL REAL TIME W/[place] [address] [place] [address] [place] [id number] Referral ID Status Reason Start Date Expiration Date V isits Requested Visits Authorized [id number] Closed Auto-Generate d Referral 02/25/2023 03/26/2024 1 1 Reason Comments Radiology [place] Specialty Diagnoses / Procedures Referred By Contac t Referred To Contact MOLECULAR & FUNCTIONAL IMAGING Diagnoses 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, estrogen receptor positive (HCC) 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 [employer] provides no warranty or guarantee of the accuracy or completeness of information in this document.
[2023-07-17] VITALS (14 sets, daily range): BP systolic 86–131; BP diastolic 46–78; PULSE 54–86; RESP 14–18; TEMP 35.8–36.8; O2SAT 94–100; BMI 26.1; BMI 26.2
[2023-07-17] LABS: Anion Gap 9 (5-15); BUN 51 mg/dL (7-18); BUN/Creat Ratio 31.3 RATIO (10-20); Calcium,Total 8.9 mg/dL (8.5-10.1); Chloride 106 mmol/L (98-107); Creatinine, Serum 1.63 mg/dL (0.55-1.02); EST Glomerular Filtration Rate 32 mL/min (>60); Est Glom Filt Rate - Afr Amer 39 mL/min (>60); Estimated Creatinine Clearance 24.98 ml/min; Glucose 196 mg/dL (74-106); Potassium 4.1 mmol/L (3.5-5.1); Sodium Level 138 mmol/L (136-145)
--- OUTSIDE RECORDS SUMMARY | 2023-07-17 00:07 | XMS RPT_ITS | CCD ---
Author Name Unknown Address [address] [place] [address] Organization [facility] Care Team Providers Care Patient Financial Services Specialist Name Role Phone J Luis Cid Unavailable Deisi RN, Indu (Rn) Unavailable Tala Negron MD Primary Care Provider No, Referral Unavailable Unavailable Howard Cody MD Unavailable Manny RUSSO MD, Estefani Unavailable Mesfin PRICE, Kami Unavailable Unavailable Vikram Gomez MD Unavailable Vikram Gomez MD Unavailable Preet PRICE, Lesley Zaman Unavailable Unavail able Preet PRICE, Lesley Zaman [facility] Addie Unavailable [phone] J Luis Cid Unavailable [facility] RNIndu (Rn) Unavailable [phone] Tala Negron MD Primary Care Provider Howard Cody MD Unavailable Manny RUSSO MD, Estefani Unavailable Mesfin PRICE, Kami Unavailable Unavailable Vikram Gomez MD Unavailable Vikram Gomez MD Unavailable Preet PRICE, Lesley Zaman Unavailable Rocio CLARKE Addie Unavailable Tala Negron MD Primary Care Provider Vikram Gomez MD Unavailable Preet PRICE, Lesley Zaman Unavailable [phone] J Luis Cid Unavailable Deisi RN, Indu (Rn) Unavailable Tala Negron MD Primary Care Provider No, Referral Unavailable Unavailable Escobar RUSSO, Howard Unavailable Manny RUSSO, , Dayayo Unavailable Mesfin RN, Kami Unavailable Unavailable Jason RUSSO, Vikram Unavailable Jason RUSSO, Vikram Unavailable Daniela Chan DO Unavailable Darby PRICE, Lucas Unavailable [phone] Darby PRICE, Lucas Unavailable [phone] J Luis Cid Unavailable No, Referral Unavailable Unavailable [facility] RN, Indu (Rn) Unavailable Howard [...] Unavailab le GOLIAS, ANSELMO Attending Unavailable TALA NEGRNO Primary Care Unavailab TALA Adame Referring Unavailab [...] TALA NEGRON B Primary Care Unavailab DANIELA Valdes Referring Unavailable TALA NEGRON B Primary Care [...] Translations: [HYDROCODONE-ACETA MINOPHEN] Drug Allergy 7 Vomiting [facility] Work Phone: (20 sources) anastrozole; Translations: [ANASTROZOLE] Drug Allergy 8 Rash [facility] Work Phone: (20 sources) Penicillins; Translations: [PENICILLINS] Drug Allergy 7 Other: See Comments [facility] Work Phone: (20 sources) Penicillins Drug Allergy 7 Other: See Comments [facility] Work Phone: Medications Current Medications Medication Drug [...] Coronary atherosclerosis; Translations: [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] Onset: [...] (20 sources) Drug therapy finding; Translations: [Other residential (current) drug therapy] Onset: 08-07-2020 08-20-2020 Episodic [...] 157.5 cm Humberto Wing MD Work Phone: [facility] 06-04-2023 10:51-0500 Body weight 63.96 kg Humberto Wing MD Work Phone: [facility] 06-04-2023 10:51-0500 Diastolic blood pressure 71 mm[Hg] Humberto Wing MD Work Phone: [facility] 06-04-2023 10:51-0500 Heart rate 74 /min Humberto Wing MD Work Phone: [facility] 06-04-2023 10:51-0500 SaO2% (BldA) [Mass fraction] 98 % Humberto Wing MD Work Phone: [facility] 06-04-2023 10:51-0500 Systolic blood pressure 134 mm[Hg] Humberto Wing MD Work Phone: [facility] 05-11-2023 10:04-0500 Body height 157 cm Vladimir Masci DO Work Phone: [facility] 05-11-2023 10:04-0500 Body temperature 97.59 [degF] Vladimir Masci DO Work Phone: [facility] 05-11-2023 10:04-0500 Body weight 65.55 kg Vladimir Masci DO Work Phone: [facility] 05-11-2023 10:04-0500 Diastolic blood pressure 71 mm[Hg] Vladimir Masci DO Work Phone: [facility] 05-11-2023 10:04-0500 Heart rate 64 /min Vladimir Masci DO Work Phone: [facility] 05-11-2023 10:04-0500 SaO2% (BldA) [Mass fraction] 100 % Vladimir Masci DO Work Phone: [facility] 05-11-2023 10:04-0500 Systolic blood pressure 122 mm[Hg] Vladimir Masci DO Work Phone: [facility] 02-25-2023 09:04-0400 Body weight 64.86 kg Fish Arreola MD Work Phone: [facility] 02-25-2023 09:04-0400 Diastolic blood pressure 61 mm[Hg] Fish Arreola MD Work Phone: [facility] 02-25-2023 09:04-0400 Heart rate 73 /min Fish Arreola MD Work Phone: [facility] 02-25-2023 09:04-0400 Systolic blood pressure 97 mm[Hg] Fish Arreola MD Work Phone: [facility] 02-13-2023 10:09-0400 Body weight 65.23 kg Melanie Podlogar BAND PRESSER.UROGYNECOLOGY PHYSICIAN Work Phone: [facility] 02-13-2023 10:09-0400 Diastolic blood pressure 72 mm[Hg] Melanie Podlogar BAND PRESSER.UROGYNECOLOGY PHYSICIAN Work Phone: [facility] 02-13-2023 10:09-0400 Heart rate 75 /min Melanie Podlogar BAND PRESSER.UROGYNECOLOGY PHYSICIAN Work Phone: [facility] 02-13-2023 10:09-0400 Respiratory rate 18 /min Melanie Podlogar BAND PRESSER.UROGYNECOLOGY PHYSICIAN Work Phone: [facility] 02-13-2023 10:09-0400 SaO2% (BldA) [Mass fraction] 98 % Melanie Podlogar BAND PRESSER.UROGYNECOLOGY PHYSICIAN Work Phone: [facility] 02-13-2023 10:09-0400 Systolic blood pressure 106 mm[Hg] Melanie Podlogar BAND PRESSER.UROGYNECOLOGY PHYSICIAN Work Phone: [facility] 10-15-2022 14:22-0400 Body weight 65.32 kg Ajit Schneider MD Work Phone: [facility] 10-15-2022 14:22-0400 Diastolic blood pressure 63 mm[Hg] Ajit Schneider MD Work Phone: [facility] 10-15-2022 14:22-0400 Heart rate 79 /min Ajit Schneider MD Work Phone: [facility] 10-15-2022 14:22-0400 Systolic blood pressure 120 mm[Hg] Ajit Schneider MD Work Phone: [facility] 08-19-2022 10:32-0500 Body weight 64.5 kg Tala Negron MD Work Phone: [facility] 08-19-2022 10:32-0500 Diastolic blood pressure 74 mm[Hg] Tala Negron MD Work Phone: [facility] 08-19-2022 10:32-0500 Heart rate 76 /min Tala Negron MD Work Phone: [facility] 08-19-2022 10:32-0500 Respiratory rate 16 /min Tala Negron MD Work Phone: [facility] 08-19-2022 10:32-0500 SaO2% (BldA) [Mass fraction] 97 % Tala Negron MD Work Phone: [facility] 08-19-2022 10:32-0500 Systolic blood pressure 118 mm[Hg] Tala Negron MD Work Phone: [facility] 08-15-2022 11:52-0500 Body height 158.8 cm Nimisha Aleman BAND PRESSER.UROGYNECOLOGY PHYSICIAN Work Phone: [facility] 08-15-2022 11:52-0500 Body temperature 98.49 [degF] Nimisha Aleman BAND PRESSER.UROGYNECOLOGY PHYSICIAN Work Phone: [facility] 08-15-2022 11:52-0500 Body weight 64.41 kg Dallas Aleman BAND PRESSER.UROGYNECOLOGY PHYSICIAN Work Phone: [facility] 08-15-2022 11:52-0500 Diastolic blood pressure 73 mm[Hg] Dallas Aleman BAND PRESSER.UROGYNECOLOGY PHYSICIAN Work Phone: [facility] 08-15-2022 11:52-0500 Heart rate 61 /min Dallas Aleman BAND PRESSER.UROGYNECOLOGY PHYSICIAN Work Phone: [facility] 08-15-2022 11:52-0500 SaO2% (BldA) [Mass fraction] 97 % Dallas Aleman BAND PRESSER.UROGYNECOLOGY PHYSICIAN Work Phone: [facility] 08-15-2022 11:52-0500 Systolic blood pressure 120 mm[Hg] Dallas Aleman BAND PRESSER.UROGYNECOLOGY PHYSICIAN Work Phone: [facility] 08-07-2022 09:15-0500 Diastolic blood pressure 55 mm[Hg] Agnieszka Mccoy MD Work Phone: [facility] 08-07-2022 09:15-0500 Heart rate 63 /min Agnieszka Mccoy MD Work Phone: [facility] 08-07-2022 09:15-0500 Systolic blood pressure 123 mm[Hg] Agnieszka Mccoy MD Work Phone: [facility] 05-23-2022 12:30-0500 Body temperature 98.6 [degF] Dallas Aleman BAND PRESSER.UROGYNECOLOGY PHYSICIAN Work Phone: [facility] 05-23-2022 12:30-0500 Body weight 64.18 kg Nimisha Aleman BAND PRESSER.UROGYNECOLOGY PHYSICIAN Work Phone: [facility] 05-23-2022 12:30-0500 Diastolic blood pressure 81 mm[Hg] Dallas Aleman BAND PRESSER.UROGYNECOLOGY PHYSICIAN Work Phone: [facility] 05-23-2022 12:30-0500 Heart rate 62 /min Nimisha Aleman BAND PRESSER.UROGYNECOLOGY PHYSICIAN Work Phone: [facility] 05-23-2022 12:30-0500 Systolic blood pressure 133 mm[Hg] Nimisha Aleman BAND PRESSER.UROGYNECOLOGY PHYSICIAN Work Phone: [facility] 05-21-2022 11:20-0500 Body weight 65.5 kg Tala Negron MD Work Phone: [facility] 05-21-2022 11:20-0500 Diastolic blood pressure 78 mm[Hg] Tala Negron MD Work Phone: [facility] 05-21-2022 11:20-0500 Heart rate 68 /min Tala Negron MD Work Phone: [facility] 05-21-2022 11:20-0500 Respiratory rate 16 /min Tala Negron MD Work Phone: [facility] 05-21-2022 11:20-0500 Systolic blood pressure 120 mm[Hg] Tala Negron MD Work Phone: [facility] 02-28-2022 13:10-0400 Body height 157.3 cm Nimisha Aleman BAND PRESSER.UROGYNECOLOGY PHYSICIAN Work Phone: [facility] 02-28-2022 13:10-0400 Body temperature 99.19 [degF] Nimisha Aleman BAND PRESSER.UROGYNECOLOGY PHYSICIAN Work Phone: [facility] 02-28-2022 13:10-0400 Body weight 63.96 kg Nimisha Aleman BAND PRESSER.UROGYNECOLOGY PHYSICIAN Work Phone: [facility] 02-28-2022 13:10-0400 Diastolic blood pressure 65 mm[Hg] Nimisha Aleman BAND PRESSER.UROGYNECOLOGY PHYSICIAN Work Phone: [facility] 02-28-2022 13:10-0400 Heart rate 62 /min Nimisha Aleman BAND PRESSER.UROGYNECOLOGY PHYSICIAN Work Phone: [facility] 02-28-2022 13:10-0400 SaO2% (BldA) [Mass fraction] 99 % Nimisha Aleman BAND PRESSER.UROGYNECOLOGY PHYSICIAN Work Phone: [facility] 02-28-2022 13:10-0400 Systolic blood pressure 134 mm[Hg] Nimisha Aleman BAND PRESSER.UROGYNECOLOGY PHYSICIAN Work Phone: [facility] 02-17-2022 15:05-0400 Body height 157.5 cm Kizzy Ayala APRN.UROGYNECOLOGY PHYSICIAN Work Phone: [facility] 02-17-2022 15:05-0400 Body temperature 98.4 [degF] Kizzy Ayala BAND PRESSER.UROGYNECOLOGY PHYSICIAN Work Phone: [facility] 02-17-2022 15:05-0400 Body weight 62.6 kg Kizzykaya Cazaresman BAND PRESSER.UROGYNECOLOGY PHYSICIAN Work Phone: [facility] 02-17-2022 15:05-0400 Diastolic blood pressure 72 mm[Hg] Kizzy Cazaresman BAND PRESSER.UROGYNECOLOGY PHYSICIAN Work Phone: [facility] 02-17-2022 15:05-0400 Heart rate 77 /min Kizzy Ayaal BAND PRESSER.UROGYNECOLOGY PHYSICIAN Work Phone: [facility] 02-17-2022 15:05-0400 Respiratory rate 20 /min Kizzy Cazaresman BAND PRESSER.UROGYNECOLOGY PHYSICIAN Work Phone: [facility] 02-17-2022 15:05-0400 SaO2% (BldA) [Mass fraction] 96 % Kizzy Cazaresman BAND PRESSER.UROGYNECOLOGY PHYSICIAN Work Phone: [facility] 02-17-2022 15:05-0400 Systolic blood pressure 122 mm[Hg] Kizzy Ayala BAND PRESSER.UROGYNECOLOGY PHYSICIAN Work Phone: [facility] 02-14-2022 10:34-0400 Body weight 64.05 kg Tala Negron MD Work Phone: [facility] 02-14-2022 10:34-0400 Diastolic blood pressure 62 mm[Hg] Tala Negron MD Work Phone: [facility] 02-14-2022 10:34-0400 Heart rate 60 /min Tala Negron MD Work Phone: [facility] 02-14-2022 10:34-0400 Respiratory rate 16 /min Tala Negron MD Work Phone: [facility] 02-14-2022 10:34-0400 SaO2% (BldA) [Mass fraction] 96 % Tala Negron MD Work Phone: [facility] 02-14-2022 10:34-0400 Systolic blood pressure 122 mm[Hg] Tala Negron MD Work Phone: [facility] 11-19-2021 09:19-0400 Body height 157.5 cm Howard Cody MD Work Phone: [facility] 11-19-2021 09:19-0400 Body weight 63.5 kg Howard Cody MD Work Phone: [facility] 11-19-2021 09:19-0400 Diastolic blood pressure 71 mm[Hg] Howard Cody MD Work Phone: [facility] 11-19-2021 09:19-0400 Heart rate 60 /min Howard Cody MD Work Phone: [facility] 11-19-2021 09:19-0400 Systolic blood pressure 129 mm[Hg] Howard Cody MD Work Phone: [facility] 11-08-2021 10:26-0400 Body weight 64.95 kg Tala Negron MD Work Phone: [facility] 11-08-2021 10:26-0400 Diastolic blood pressure 70 mm[Hg] Tala Negron MD Work Phone: [facility] 11-08-2021 10:26-0400 Heart rate 62 /min Tala Negron MD Work Phone: [facility] 11-08-2021 10:26-0400 Respiratory rate 16 /min Tala Negron MD Work Phone: [facility] 11-08-2021 10:26-0400 SaO2% (BldA) [Mass fraction] 96 % Tala Negron MD Work Phone: [facility] 11-08-2021 10:26-0400 Systolic blood pressure 108 mm[Hg] Tala Negron MD Work Phone: [facility] 10-14-2021 15:17-0400 Body weight 65.5 kg Tala Negron MD Work Phone: [facility] 10-14-2021 15:17-0400 Diastolic blood pressure 60 mm[Hg] Tala Negron MD Work Phone: [facility] 10-14-2021 15:17-0400 Heart rate 80 /min Tala Negron MD Work Phone: [facility] 10-14-2021 15:17-0400 Respiratory rate 20 /min Tala Negrno MD Work Phone: [facility] 10-14-2021 15:17-0400 SaO2% (BldA) [Mass fraction] 97 % Tala Negron MD Work Phone: [facility] 10-14-2021 15:17-0400 Systolic blood pressure 106 mm[Hg] Tala Negron MD Work Phone: [facility] Encounters Encounter Date Encounter Type Care Provider Facility Start: 07-15-2023 ambulatory VLADIMIR THAO Facility:[facility] Start: 07-14-2023 End: 07-14-2023 ambulatory TALA NEGRON Facility:[facility] Start: 07-10-2023 End: 07-12-2023 ambulatory [facility] Facility:[facility] Start: 07-10-2023 End: 07-12-2023 Nursing evaluation of patient and report [facility] Work Phone: Cardiology Procedures Date Procedure Procedure Detail Performing Clinician Start: 05-04-[address] atten uation skull base mid-thigh Nimisha Aleman BAND PRESSER.UROGYNECOLOGY PHYSICIAN Work Phone: Start: 03-11-2023 Screening digital br [facility] bi Vladimir Thao DO Work Phone: Start: 03-05-2023 Us retroperitoneal r eal time w/image complete Fish Arreola MD Work Phone: Start: 11-14-2022 Mri any jt lower ext rem w/o & w/contrast matrl Nimisha Aleman BAND PRESSER.UROGYNECOLOGY PHYSICIAN Work Phone: Start: 10-31-2022 Bone &/joint imaging whole body Nimisha Aelman BAND PRESSER.UROGYNECOLOGY PHYSICIAN Work Phone: Start: 10-22-2022 Echocardiography [facility]G [facility]RA[facility] Start: 05-16-2022 Bone &/joint imaging whole body Dallas Aleman BAND PRESSER.UROGYNECOLOGY PHYSICIAN Work Phone: Start: 02-14-2022 Adult depression scr eening assessment Daniela Chan DO Work Phone: Start: 02-05-2022 Ct abdomen & pelvis w/contrast material Melanie Brown RN Work Phone: Start: 02-05-2022 Ct thorax w/contrast material Dallas Aleman BAND PRESSER.UROGYNECOLOGY PHYSICIAN Work Phone: Start: 11-21-2021 Ct abdomen & pelvis w/contrast material Nimisha Aleman BAND PRESSER.UROGYNECOLOGY PHYSICIAN Work Phone: Start: 11-21-2021 Ct thorax w/contrast material Dallas Aleman BAND PRESSER.UROGYNECOLOGY PHYSICIAN Work Phone: Start: 11-20-2021 Adult depression scr eening assessment Ajit Schneider MD Work Phone: Start: 11-09-2021 Adult depression scr eening assessment Nimisha Aleman BAND PRESSER.UROGYNECOLOGY PHYSICIAN Work Phone: Start: 10-28-2021 Radiologic exam ches t 2 views Tala Negron MD Work Phone: Start: 08-15-2021 Adult depression scr eening assessment Vladimir Thao DO Work Phone: Plan of Treatment Date Care Activity Detail Author Start: 03-14-2031 Urine microalbumin profile DTa P,Tdap,Td Vaccine (3 - Td or Tdap) [facility] Start: 08-05-2028 Urine microalbumin profile [facility] Start: 06-25-2026 Diabetes Screening Diabetes Screenin [facility] Start: 06-18-2026 Diabetes Screening Diabetes Screenin [facility] Start: 06-04-2026 Diabetes Screening Diabetes Screenin g [facility] Start: 05-27-2026 Diabetes Screening Diabetes Screenin g [facility] Start: 05-13-2026 Diabetes Screening Diabetes Screenin g [facility] Start: 04-30-2026 Diabetes Screening Diabetes Screenin g [facility] Start: 04-22-2026 Diabetes Screening Diabetes Screenin g [facility] Start: 04-09-2026 Diabetes Screening Diabetes Screenin g [facility] Start: 04-03-2026 Diabetes Screening Diabetes Screenin g [facility] Start: 03-31-2026 Diabetes Screening Diabetes Screenin g [facility] Start: 03-19-2026 Diabetes Screening Diabetes Screenin g [facility] Start: 02-26-2026 DIABETES SCREEN DIABETES SCREEN [facility] Start: 02-26-2026 Diabetes Screening Diabetes Screenin g [facility] Start: 02-13-2026 DIABETES SCREEN [facility] Start: 02-02-2026 DIABETES SCREEN [facility]EN [facility] Start: 11-28-2025 DIABETES SCREEN DIABETES SCREEN [facility] Start: 11-10-2025 [facility] Start: 08-15-2025 DIABET[facility]CREEN [facility] Start: 05-29-2025 DIABETES SCREEN [facility] Start: 05-16-2025 DIABETES SCREEN [facility] Start: 02-28-2025 DIABETES SCREEN [facility] Start: 11-21-2024 DIABETES SCREEN [facility] Start: 11-07-2024 DIABETES SCREEN [facility] Start: 10-10-2024 DIABETES SCREEN [facility] Start: 08-01-2024 DIABETES SCREEN [facility] Start: 06-25-2024 Complete blood [facility] Start: 06-25-2024 Creatinine measurement Serum Creatin ine [facility] Start: 06-18-2024 Creatinine measurement Serum Creatin ine [facility] Start: 06-08-2024 BP Controlled (<130/80) BP Controlle d (<130/80) [facility] Start: 06-04-2024 Complete blood count [facility] Start: 06-04-2024 Creatinine measurement Serum Creatin ine [facility] Start: 05-27-2024 [facility] blood [facility] Start: 05-27-2024 Creatinine measurement Serum Creatin ine [facility] Start: 05-27-2024 Hemoglobin/Hematocrit Hemoglobin/Hem atocrit [facility] Start: 05-27-2024 Serum Creatinine Serum Creatinine Cl [facility] Start: 05-13-2024 Hemoglobin/Hematocrit Hemoglobin/Hem atocrit [facility] Start: 05-13-2024 Serum Creatinine Serum Creatinine [facility] Start: 05-11-2024 BP Controlled (<130/80) BP Controlle d (<130/80) [facility] Start: 04-30-2024 Hemoglobin/Hematocrit Hemoglobin/Hem atocrit [facility] Start: 04-30-2024 Serum Creatinine Serum Creatinine [facility] Start: 04-24-2024 BP Controlled (<130/80) BP Controlle d (<130/80) [facility] Start: 04-22-2024 Serum Creatinine Serum Creatinine [facility] Start: 04-09-2024 Serum Creatinine Serum Creatinine [facility] Start: 04-03-2024 Hemoglobin/Hematocrit Hemoglobin/Hem [facility] Start: 04-03-2024 Serum Creatinine Serum Creatinine [facility] Start: 03-31-2024 Serum Creatinine Serum Creatinine [facility] Start: 03-19-2024 Serum Creatinine Serum Creatinine [facility] Start: 03-06-2024 [facility]: 03-06-2024 Serum Creatinine Serum Creatinine [facility] Start: 02-27-2024 HEMOGLOBIN/HEMATOCRIT HEMOGLOBIN/HEM [facility] Start: 02-27-2024 SERUM CREATININE SERUM CREATININE [facility] Start: 02-26-2024 BP CONTROLLED (<130/80) BP CONTROLLE D (<130/80) [facility] Start: 02-14-2024 ANNUAL PCP TEAM FIELD NATURALIST STEVE DISEASE VISIT ANNUAL PCP TEAM CHRONIC DISEASE VISIT [facility] Start: 02-14-2024 BP CONTROLLED (<130/80) BP CONTROLLE D (<130/80) [facility] Start: 02-14-2024 SERUM CREATININE SERUM CREATININE [facility] Start: 02-03-2024 BP CONTROLLED (<130/80) BP CONTROLLE D (<130/80) [facility] Start: 02-03-2024 [facility] 02-03-[facility]24 SERUM CREATININE SERUM CREATININE [facility] Start: 11-29-2023 Hepatitis B surface antibody level LDL CHOLESTEROL [facility] Start: 11-13-2023 ANNUAL PCP TEAM FIELD NATURALIST STEVE DISEASE VISIT ANNUAL PCP TEAM CHRONIC DISEASE VISIT [facility] Start: 11-13-2023 BP CONTROLLED (<130/80) BP CONTROLLE D (<130/80) [facility] Start: 11-11-2023 SERUM CREATININE SERUM CREATININE Cl [facility] Start: 11-01-2023 HEMOGLOBIN/HEMATOCRIT HEMOGLOBIN/HEM ATOCRIT [facility] Start: 10-16-2023 BP CONTROLLED (<130/80) BP CONTROLLE D (<130/80) [facility] Start: 08-19-2023 ANNUAL PCP TEAM FIELD NATURALIST STEVE DISEASE VISIT ANNUAL PCP TEAM CHRONIC DISEASE VISIT [facility] Start: 08-19-2023 BP CONTROLLED (<130/80) BP CONTROLLE D (<130/80) [facility] Start: 08-15-2023 BP CONTROLLED (<130/80) BP CONTROLLE D (<130/80) [facility] Start: 08-07-2023 BP CONTROLLED (<130/80) BP CONTROLLE D (<130/80) [facility] Start: 06-22-2023 Depression Assessment Depression Ass essment [facility] Start: 05-21-2023 ANNUAL PCP TEAM FIELD NATURALIST STEVE DISEASE VISIT ANNUAL PCP TEAM CHRONIC DISEASE VISIT [facility] Start: 05-21-2023 BP CONTROLLED (<130/80) BP CONTROLLE D (<130/80) [facility] Start: 05-21-2023 COVID-19 VACCINE (5 - Booster for Moderna series) COVID-19 VACCINE (5 - Booster for Moderna series) [facility] Immunizations Immunization Date Immunization Notes Care Provider Dominick jensen 04-28-2022 influenza, high dose seasonal, preservative-free Tala Negron MD Work Phone: [facility] 04-28-2022 influenza virus vacc ine, unspecified formulation Daniela Chan DO Work Phone: [facility] 03-22-2021 influenza virus vacc ine, unspecified formulation Vladimir Thao DO Work Phone: [facility] 07-17-2020 haemophilus influenz ae type b vaccine, PRP-T conjugate Vladimir Thao DO Work Phone: [facility] Work Phone: 07-17-2020 meningococcal oligosaccharide (groups A, C, Y and W-135) diphtheria toxoid conjugate vaccine (MCV4O) Vladimir Thao DO Work Phone: [facility] Work Phone: 07-17-2020 pneumococcal conjuga te vaccine, 13 valent Vladimir Thao DO Work Phone: [facility] Work Phone: 03-12-2020 influenza, high-dose , quadrivalent vaccine (FLUZONE HIGH DOSE QUADRIVALENT) Vladimir Thao DO Work Phone: [facility] 04-11-2019 influenza, high dose seasonal, preservative-free Vladimir Thao DO Work Phone: [facility] 05-26-2018 influenza, high dose seasonal, preservative-free Vladimir Thao DO Work Phone: [facility] 03-30-2017 influenza, high dose seasonal, preservative-free Vladimir Thao DO Work Phone: [facility] 03-30-2017 pneumococcal conjuga te vaccine, 13 valent Vladimir Thao DO Work Phone: [facility] 02-12-2015 pneumococcal polysaccharide vaccine, 23 valent Vladimir Thao DO Work Phone: [facility] Payers Date Payer Category Payer Medicare [id number] 2019 Unknown MMO MMO MEDICARE SUPPLEMENT [id number] 2019-Present [phone] [address] [place] [address] Indemnity [id number] 2019 Unknown MMO MMO MEDICARE SUPPLEMENT [id number] 2019-Present [phone] [address] [place] [address] Indemnity [id number] 2015 Medicare MEDICARE MEDICAR E A AND B [id number] 2015-Present [phone] [address] [address] [place] [address] Medicare [id number] 2015 Medicare MEDICARE MEDICAR E A AND B [id number] 2015-Present [phone] [place] [address] Medicare [id number] 2015 Medicare [id number] Social History Date Type Detail Facility Start: 01-09-2017 End: 02-17-2022 Tobacco smoking status NHIS Never smoked tobacco [facility] Start: 01-09-2017 End: 02-17-2022 Tobacco use and exposure Smokeless tobacco non-user [facility] Start: 08-19-2021 End: 06-24-2023 Alcohol intake Current drinker of alcohol (finding) [facility] Start: 05-25-2020 End: 05-16-2022 History SDOH Alcohol Frequency 3 [facility] Start: 05-25-2020 End: 05-16-2022 History SDOH Alcohol Std Drinks 1 [facility] Start: 03-29-2019 History SDOH Alcohol Comment rare, maybe one drink a month [facility] Start: 12-11-2019 End: 05-16-2022 History SDOH Social Connections Phone 5 [facility] Start: 12-11-2019 End: 05-16-2022 History SDOH Social Connections Get Together 4 [facility] Start: 03-12-2020 History SDOH Physica l Activity MPS 7 [facility] Start: 12-11-2019 End: 05-16-2022 History SDOH Stress 2 [facility] Start: 12-11-2019 Education 20 [facility] Start: 1945 Sex Assigned At Female C [facility] Start: 09-29-2021 End: 05-23-2022 Exposure to SARS-CoV-2 (event) Not sure [facility] Start: 05-16-2022 History SDOH Physica l Activity MPS 6 [facility] Start: 05-16-2022 End: 10-22-2022 History of Social function [facility] Start: 05-16-2022 End: 10-22-2022 Social connection and isolation panel [facility] Active Member of [facility] bs or Organizations Not on file [facility] Are you now , , , , never or living with a partner? [facility] How often to you hav e a drink containing alcohol? Monthly or less [facility] How many standard dr inks containing alcohol do you have on a typical day? 1 or 2 [facility] How often do you hav e 6 or more drinks on 1 occasion? Never [facility] Do you feel stress - tense, restless, nervous, or anxious, or unable to sleep at night because your mind is troubled all the time - these days [OSQ] Only a little [facility] (I/We) worried wheth er (my/our) food would run out before (I/we) got money to buy more. Never true [facility] In the past 12 month s, was there a time when you were not able to pay the mortgage or rent on time? No [facility] Start: 10-01-2018 Gender identity Identifies as female gender (finding) [facility] Start: 10-01-2018 Sexual orientation Heterosexual (roxanne casas) [facility] Goals Date Patient Goal Desired Activity /State Personal health goal Clinical Notes 12-25-2020 to 07-12-2023 Lizeth Hobbs RN - 07/12/2023 11:30 AM ESTTelephone Encounter - Chikis Durán RN - 06/05/2023 12:54 PM ESTTelephone Encounter - Brenda Lindsay RN - 06/04/2023 3:15 PM ESTPatient Instructions Note Date & Type Note Facility 07-12-2023 Nurse Note chart review of labs completed documented in this encounter [facility] 06-05-2023 Miscellaneous Notes ECHO LAB TELEPHONE INSTRUCTIONS: [...] Department of CARDIOLOGY documented in this encounter [facility] 06-04-2023 Miscellaneous Notes CARDIOVASCULAR LAB INSTRUCTIONS: Readiness [...] Instructions/Restrictions- instructed to be accompanied by adult driver guard at discharge Patient/Family Response Evaluation: Verbalizes understanding Follow Up Plan and Medication: As directed by physician Instruction/Supplemental Material Given: Cardiac catheterization instructions, procedure information, hospital information, hotel information. Instructed By Brenda Lindsay RN, RN. In Department of CARDIOLOGY. documented in this encounter [facility] 06-04-2023 History of Present illness Narrative Images from the original note were not included. [facility] [place] Jorge Alberto Diaz Department of Cardiovascular Medicine SECTION OF INTERVENTIONAL CARDIOLOGY OUTPATIENT VISIT DATE June 04, 2023 OUTPATIENT VISIT TYPE NEW PRIMARY CARE PHYSICIAN: Tala Negron [address] [place] [address] REFERRING PHYSICIAN: No referring provider defined for this encounter. CHIEF COMPLAINT: severe TR HISTORY OF PRESENT ILLNESS: Ms. Orquidea Adan is a 78 year old female who presents today re severe TR. NURSING INTAKE: Queneie Adan is an 78 year old female [...] Abs Lymph 1.00 - 4.00 k/uL 1.20 Nicollet% % 11.7 Abs Nicollet <0.87 k/uL 0.39 Eosin% % 3.0 Abs [...] . PAST MEDICAL HISTORY Diagnosis Date A-fib ([facility]) Dr. Cody Breast cancer ([facility]) 1998 lobular, left side. Stage I, ER+/TN+/HER2-. Seeing Dr. 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 CONTACT INFORMATION: documented in this encounter [facility] 05-29-2023 History of Present illness Narrative [facility] [place] Department of Cardiovascular Medicine VIRTUAL VIDEO VISIT [...] visit. Either the patient or their legal goodwill representative has been informed of the risks [...] Date A-fib (HCC) Dr. Cody Breast cancer ([facility]) 1998 lobular, left side. Stage I, ER+/TN+/HER2-. Seeing Dr. 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 Lu Root documented in this encounter [facility] 12-05-2023 Miscellaneous Notes Reviewed. Sw called patient [...] it feels fine. 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 My life is blessed. Sw notes that if patient does have any needs in the future to let Dr. Negron and or Sw know. documented in this encounter [facility] 05-26-2023 Miscellaneous Notes Patient has been identified [...] Pratibha Crews LPN. documented in this encounter [facility] 05-11-2023 History of Present illness Narrative Diagnoses: [...] mastectomy for what proved to be a [id number] ER+/TN+/HER2- breast cancer. The tumor was 1.6 cm. [...] tissue edges. 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 - Large organizing hematoma and stromal scar. - Biopsy site reparative changes. COMMENT The prior excisional biopsy ([id number]) contained a 12 mm focus of invasive [...] receptor: Positive (50%, moderate) Specimen number #: [id number] (HER2) ERBB2 Status: Previously performed and reported [...] excursion. CARDIOVASCULAR: Rhythm is regular. 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 Right breast no palpable abnormality. Left mastectomy [...] of left mastectomy site dermal lesion demonstrated ER/TN positive, HER-2 negative breast cancer. Margins were [...] which included preparing to see the patient, [id number] patient care, completing clinical documentation, obtaining and/or reviewing separately obtained history, performing a medically appropriate examination, counseling and educating the patient/family/caregiver, ordering medications, tests, or procedures, communicating with other HCPs (not separately reported), independently interpreting results (not separately reported), and communicating results to the patient/family/caregiver. Vladimir Thao DO documented in this encounter [facility] 05-04-2023 Note HNO ID: [id number] Author: Tracy Jurado RT(R) Service: Nuclear Medicine [...] 0840 PATIENT DISCHARGED TO: Ambulatory patient, left [place] department area. A Diagnostic radioactive procedure has taken place, with no further precautions necessary other than routine body substance precautions. More information regarding radiation safety can be found using this link: [email or web address] [email or web address]%20Nuclear%20Medi cine%[email or web address] SIGNATURE: RT Maame(R) PATIENT NAME: Queenie Adan DATE: May 04, 2023 TIME: 8:48 AM PAGER/CONTACT #: [facility] 05-04-2023 History of Present illness Narrative [...] safety can be found using this link: [email or web address] [email or web address]%20Nuclear %[email or web address] SIGNATURE: RT Maame(Emily) PATIENT NAME: Queenie Adan DATE: May 04, 2023 TIME: 8:48 AM PAGER/CONTACT #: documented in this encounter [facility] 04-27-2023 Note HNO ID: [id number] Author: Magalie Clark Service: ? Author Type: ? Type: Progress Notes Filed: 04/27/2023 3:38 PM Note Text: Sent to Scheduling [facility] 04-27-2023 History of Present illness Narrative Sent to Scheduling documented in this encounter [facility] 04-24-2023 Note [facility] 04-17-2023 Note HNO ID: [id number] Author: Magalie Clark Service: ? Author Type: ? Type: Progress Notes Filed: 04/17/2023 10:32 AM Note Text: Resent to cardiology clinical consultant. [facility] 04-17-2023 History of Present illness Narrative Resent to cardiology clinical consultant. documented in this encounter [facility] 04-15-2023 Miscellaneous Notes I spoke w the patient. Pt. Scheduled for Triluminate (TV Clip)/ TTVR (TRISCEND) Eval for 06/04, 06/05 and 06/08. Appt reminder/instructions mailed to pt. Radha documented in this encounter [facility] 04-14-2023 Miscellaneous Notes Patient called but there was no answer. Detailed VM left for pt to call us back. Patient is to be scheduled for a 3 day Triluminate (TV Clip)/ TTVR (TRISCEND) Evaluation Radha documented in this encounter [facility] 04-13-2023 History of Present illness Narrative STRUCTURAL REVIEW FORM Orders placed by Dr. Chan on 03/23/2023 Records Reviewed: 04/13/2023 Appt request sent: 04/14/2023 Pt. Name: Queenie Adan Records in [facility] have been reviewed. Severe TR. Request has been sent to the cardiology clinical consultant who will arrange an appointment schedule. A [...] left and right cardiac catheterization with an Sales/Marketing ONLY (Dr. Escobedo, Dr. Clifton, Dr. Wing, [...] Randee Rodriguez APRN.EUNICE documented in this encounter [facility] 04-07-2023 Note HNO ID: [id number] Author: Magalie Clark Service: ? Author Type: ? Type: Progress Notes Filed: 04/07/2023 12:53 PM Note Text: Request to cardiology clinical consultant. [facility] 04-07-2023 History of Present illness Narrative Request to cardiology clinical consultant. documented in this encounter [facility] 04-06-2023 Miscellaneous Notes Spoke with patient and scheduled. Office notes adjusted. Kizzy June Per Dr. Thao please cancel CT/bone scan and schedule PET scan prior to next OV. Follow up with Dr. Thao as scheduled. Thank you. Nimisha Aleman APRN.UROGYNECOLOGY PHYSICIAN documented in this encounter [facility] 04-02-2023 Miscellaneous Notes Call from patient requesting refill. Requested Prescriptions Pending Prescriptions Disp Refills torsemide (DEMADEX) 20 mg tablet 180 tablet 3 Sig: Take 1 tablet by mouth once daily. Take an additional tablet as needed for weight gain. Patient last seen 03/23/23 Jose Duenas documented in this encounter [facility] 03-23-2023 Note [facility] 03-17-2023 Miscellaneous Notes March 18, 2023 PID: [id number] Queenie Adan [address] [facility] [address] [place] [address] Dear Ms. Orquidea Adan, We are pleased [...] report will be kept on file at [facility] as part of your permanent medical record and are available for your continuing care. Thank you for allowing us to help in meeting your health care needs. Sincerely, Dr. Zapata Interpreting Radiologist (Normal over 40) documented in this encounter [facility] 03-15-2023 Miscellaneous Notes Patient is currently scheduled [...] Vladimir Thao DO documented in this encounter [facility] 03-11-2023 Note [facility] 03-11-2023 History of Present illness Narrative Radiology [...] 2023 10:04 AM documented in this encounter [facility] 03-05-2023 Note [facility] 03-05-2023 History of Present illness Narrative Radiology [...] 2023 12:13 PM documented in this encounter [facility] 02-25-2023 Note [facility] 02-25-2023 Instructions Fish Arreola MD - 02/25/2023 [...] Target <130/80 mm Hg. Inform us through Net[employer] if your blood pressure is not at target consistently. Get laboratory tests done in one week and then every 3 months documented in this encounter [facility] 02-25-2023 History of Present illness Narrative [facility] SERVICE DATE: 02/25/2023 [...] recurrent diarrhea or vomiting. No history of dnjz-ugn-xwvhura meds use or herbal meds use. No [...] wt of around 140 lbs as per school community relations coordinator) PAST MEDICAL HISTORY: PAST MEDICAL HISTORY Diagnosis Date A-fib ([facility]) Dr. Cody Breast cancer ([facility]) 1998 lobular, left side. Stage I, ER+/TN+/HER2-. Seeing Dr. 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 Apprentice Painter Hand (topogram) images: No additional findings. IMPRESSION: No [...] Oct, 2022 which could be related to [place] of spironolactone or from relatively low blood [...] MD PATIENT NAME: Queenie Adan OFFICE NUMBER: [phone] CC: REFERRING PROVIDER: Melanie Strong APRN.C* PRIMARY CARE PHYSICIAN: Tala Negron MD documented in this encounter [facility] 02-16-2023 Miscellaneous Notes Patient returned call and went over results, notes from Melanie Strong PREPARATION CENTER COORDINATOR with understanding. Assisted with transfer to cardiology clinical consultant to get appt set up. Message left for patient to call office back for update. Nadja Palacios LPN Please call patient and let her know her kidney function remains decreased. I have placed order for consult with nephrology. Please assist in scheduling. Melanie Strong APRN.UROGYNECOLOGY PHYSICIAN documented in this encounter [facility] 02-13-2023 Note [facility] 02-13-2023 History of Present illness Narrative 02/13/2023 [...] Date A-fib (HCC) Dr. Cody Breast cancer ([facility]) 1998 lobular, left side. Stage I, ER+/TN+/HER2-. Seeing Dr. Friend Chronic diastolic CHF (congestive heart failure) ([facility]) Coronary artery disease mild Elevated alkaline phosphatase level [place] frequently GERD (gastroesophageal reflux disease) HTN (hypertension) Hyperparathyroidism (HCC) IPMN (intraductal papillary mucinous neoplasm) 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, estrogen receptor positive ([facility]) 01/09/2017 Osteoarthritis, knee Pancreatic cyst 11/2019 Pancreatitis PONV (postoperative nausea and vomiting) Prediabetes Recurrent seroma of breast S/P ablation of atrial fibrillation 2010 Sleep apnea on CPAP Vaginal dryness Varicose veins of both lower extremities ALLERGIES Anastrozole, [place] [Hydrocodone-Acetaminophen], and Penicillins MEDICATIONS Current Outpatient Medications [...] tablet by mouth once daily as needed. enahg-yu-1-hze-cdp-rgoelra-ast [phone] mg cap Take 1 tablet by mouth [...] Abs Lymph 1.00 - 4.00 k/uL 1.10 Nicollet% % 13.4 Abs [place] <0.87 k/uL 0.41 Eosin% % 3.6 Abs [...] as scheduled 7. 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 documented in this encounter [facility] 02-02-2023 Note [facility] 01-07-2023 Miscellaneous Notes Patient returned call and rescheduled. Kizzy June LM for patient to return call. When patient calls, please advise that Dr. Thao needs to reschedule her 01/30/23 lab and office visit and reschedule said appointments to a date and time that works for the patient. Kizzy June documented in this encounter [facility] 12-12-2022 Miscellaneous Notes Phoned patient and she stated she will fruit or nut picker the Rx from medical records. Rx taken to medical records. Pt notified handicap placard available for fruit or nut picker or to be mailed to address on file. Wait pt response. Victoria Miles Ma Rx printed. Can mail or patient can fruit or nut picker rx and take to [facility]. documented in this encounter [facility] 12-11-2022 Miscellaneous Notes Belkys--10/23/22 Nov--02/13/23 Last refill--05/21/22 180 with 1 refill Last labs--11/28/22 documented in this encounter [facility] 12-03-2022 Note [facility] 12-03-2022 History of Present illness Narrative Ms. Orquidea Adan presents today for her Reclast Infusion. She states she Initial Vital signs: There were no vitals taken for this visit. INFUSION DOCUMENTATION Infusion initiated at 1035 Dose: 5mg per 100ml [place] [id number] Exp: 05/2024 IV: A 22g angiocath was [...] return in 1 yr. Follow up with battery loader as scheduled Ms. Orquidea Adan was discharged in no distress and accompanied by family member. Supervising Physician: Ajit Schneider documented in this encounter [facility] 11-20-2022 History of Present illness Narrative EST [...] distribution -Scattered small vega red papules throughout -Witt scaly papule on the right dorsal hand -Witt dome shaped papule on the nasal tip [...] Past Histories independently gathered by the clinical decision support manager and the remaining scribed note accurately describes my personal service to the patient. Edwina Damon APRN.CNP documented in this encounter [facility] 11-18-2022 Miscellaneous Notes TC to pt, pt made aware, voices understanding. Chelsie Mcadams LPN Please inform pt. that the MRI of her hip showed no concerning findings for cancer. Follow up as scheduled. Thank you. Nimisha Aleman APRN.CNP documented in this encounter [facility] 11-14-2022 Note [facility] 11-14-2022 History of Present illness Narrative Radiology [...] TIME: 1:55 PM documented in this encounter [facility] 11-12-2022 Note [facility] 11-07-2022 Note [facility] 11-04-2022 Note [facility] 11-03-2022 Note [facility] 10-31-2022 Note [facility] 10-31-2022 Note [facility] 10-31-2022 History of Present illness Narrative RADIOLOGY [...] safety can be found using this link: [email or web address] %[email or web address] SIGNATURE: RT Que(Emily) PATIENT NAME: Queenie Adan DATE: October 31, 2022 TIME: 1:29 PM PAGER/CONTACT #: documented in this encounter [facility] 10-22-2022 Note [facility] 10-16-2022 Instructions Kizzy Ayala APRN.UROGYNECOLOGY PHYSICIAN - 10/16/2022 2:54 PM EDT Patient Instructions: - Increase Auto CPAP 5-11 cmH2O. - Will send script to [facility]. - Remember to clean your mask and equipment regularly, as directed. - You should be eligible for new supplies approximately every 3-6 months, depending on your insurance coverage. Contact your Durable Medical Equipment (DME) company for new supplies as needed. - Follow up in 6 months with [facility]. If you have questions, feel free to send me a SeeMedia message. Kizzy Ayala APRN.UROGYNECOLOGY PHYSICIAN CPAP [place] on Skin 1: Could be [...] Saline flush your nose 7: See an Rn X Ray 8: Use a full face mask during [...] the heated humidifier documented in this encounter [facility] 10-16-2022 History of Present illness Narrative Episode [...] and treatment included: Therapeutic exercise, Neuromuscular re-education, Self-half-way management, Gait training, Patient/Family/Caregiver Education, and General [...] reflect decreased fall risk. - MET easily [place] in home exercise program including cardiovascular exercise. [...] she was [facility] medical [facility] at [facility]. She is completely shocked and unable to [...] of gait belt. Patient education as noted. Self-Retirement Management: 1: Therapist had lengthy discussion with [...] Anselmo Prather PT documented in this encounter [facility] 10-16-2022 History of Present illness Narrative Images from the original note were not included. [facility] Visit performed virtually, with the patient's permission. [employer] Rules ([employer] ): This visit was conducted as a Virtual Visit, with patient's permission, via Zoom. It required patient-provider interaction for the medical decision making as documented below. Patient stated first & last name: Queenie Adan Patient stated : 1945 Patient stated current location: [place], [place] I have communicated my name, Kizzy Ayala CNP, and active licensure Adult Certified Nurse Practitioner in the Sleep Medicine Center at [facility]. The patient's identity and physical location were verified at the time of this visit. Either the patient or their legal goodwill representative has been informed of the risks [...] PAP compliance data: Device interrogated in room. RespirNASOFORM DreamStation 2 Advanced Pressure 5-8 cmH20 Mode [...] of new supplies Will send script to [facility]. - Remember to clean your mask and [...] -- also called portable monitoring or an pcj-ue-kwyaon sleep test, is a diagnostic test sleep professionals and doctors use to diagnose obstructive sleep apnea. A technically adequate HSAT device incorporates a minimum of the following sensors: nasal pressure, chest and abdominal respiratory inductance plethysmography, and oximetry; or peripheral arterial tonometry (PAT) with oximetry and actigraphy (2). - Call [phone] to schedule your home sleep study if [...] numbers, based upon your location preference: - [facility] or [facility] - [phone] or toll free at [phone] - [place] - [phone] - [place] - [phone] - [place] - [phone] The device will be delivered to your home via UPS. You do not need to be home to sign for the package. Please use the equipment the night you receive it and return the equipment the following day. UPS packaging and return postage are included. Your device will contain instructions how to use the equipment and a contact number for a clinical lab technologist. The technologist can help address any problems that occur during the test. You will receive a telephone call or a [employer] chart message approximately 1 week prior to receiving the home sleep apnea test equipment. To reschedule please call [phone]. - Avoid driving when drowsy. Recommend that if you are dozing off while driving, that you do not drive until your sleepiness is appropriately treated. -Encouraged healthy lifestyle with adequate sleep ( 7-9 hours per night), diet and exercise. Will call and send HSAT results to patient. Follow up in 1 year. If you have questions, feel free to send me a SeeMedia message. I spent a total of 30 minutes as this was an established patient to me on the date of the service which included preparing to see the patient, xayp-cb-ipof patient care, completing clinical documentation, counseling and educating the patient/family/caregiver and ordering medications, tests, or procedures. Kizzy Ayala APRN.UROGYNECOLOGY PHYSICIAN Interval history : Concerned over elevated AHI. Pressure was suppose to be increased to 5-11 cmH20. Pressure readings 6-8. Sleeps on her back in an adjustable bed in 1.5 years. Sleeps well. Sleeps soundly. Wakes up feeling really a little stiff and some chest tightness. OOB [id number]. Getting 8 hours of sleep. Here for [...] up, may call to reschedule around Tony Stinson PSS SLEEP APNEA Sleep apnea type : CAMRYN Most Recent Apnea-Hypopnea Index (AHI): 62.9 Treatment : PAP therapy + MAD DME: [facility] PAP History: Uses AutoPAP + MAD for 8 hours per night, 7 nights per week. Current PAP settin-10 cm H2O. Difficulties with AutoPAP: None Reviewed objective PAP compliance data: [facility]: PAP download not currently available. Mask type: [...] Bedtime : 2100 Wake up Time : 7009-3667 Time it takes to fall sleep : [...] or near accidents due to drowsy drivin [place] Sleepiness Scale 08/15/2021 02/14/2022 10/14/2022 Score 9 [...] Positive for palpitations. Chronic Atrial Fibrillation. See Assigner next week. Genitourinary: Negative. 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 OOB [id number]. Getting 8 hours of sleep. - Doing [...] questions, feel free to send me a SeeMedia message. I spent a total of 25 minutes as this was an established patient to me on the date of the service which included preparing to see the patient, ovoh-uk-jxti patient care, completing clinical documentation, counseling and educating the patient/family/caregiver and ordering medications, tests, or procedures. Kizzy Ayala APRN.EUNICE documented in this encounter [facility] 10-15-2022 Miscellaneous Notes Ajit Schneider MD P Endo F20 Nurse Pool Please schedule her for late November of this year thank you. Ajit Schneider MD Pt. Was called to schedule Reclast; no answer; so detailed VM was left to contact endo nurses. 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 Cody Breast cancer ([facility]) 1998 lobular, left side. Stage I, ER+/TN+/HER2-. Seeing Dr. Friend Chronic diastolic CHF (congestive [...] COMPLETE Left 02/12/2017 Left Compl Mast: pT1cNx, ER/TN+, HER2 Neg IDC w/Radial Margin MIDLINE INSERTION/CONSULT [...] Dec 13 2020 12:15PM WON 0014 - IA BONE WHOLE BODY / PROCEDURE REASON: left [...] DATE OF EXAM: Jun 03 2021 2:32PM [facility] 0804 - DXA - AXIAL SKELETON / [...] tablet by mouth once daily as needed. epsbj-lr-4-awt-jel-siyjysp-ast [phone] mg cap Take 1 tablet by mouth. [...] RD, MD, CCD, FACN, FACP, FACE Diplomate, [place] [employer] Diplomate, National Board of Physician Nutrition Specialists [facility] F-20 / [phone] / [id number] Any part of this document that has been added/copied & pasted from other documents has been reviewed for accuracy and updated as appropriate at the time of the patient encounter documented in this encounter [facility] 10-15-2022 Instructions Aurora James Ma - 10/15/2022 2:20 PM EDT Thank you for choosing the [facility] Department of Endocrinology, Diabetes and Metabolism. Did you know that you need to call 48 hours in advance of your scheduled visit, if you are unable to make your appointment? The Endocrinology and Metabolism [place] thanks you for your commitment, because patients not showing to their appointment results in a lost opportunity for patients to receive world class health care at the [facility]. To Cancel an appointment, please choose one of the following: - Call the Appointment Call Center at [phone] - From Couple, Go to Appointments - Cancel Appts If cancelling, consider your need to reschedule to prevent further delays in your care. To Schedule an appointment, please choose one of the following: - Call the Appointment Call Center at [phone] - From Couple, Go to Appointments - Request an Appt documented in this encounter [facility] 10-13-2022 History of Present illness Narrative Episode [...] Anselmo Prather PT documented in this encounter [facility] 10-08-2022 History of Present illness Narrative Episode [...] Anselmo Prather PT documented in this encounter [facility] 10-06-2022 History of Present illness Narrative Episode [...] Anselmo Prather PT documented in this encounter [facility] 10-03-2022 History of Present illness Narrative Episode [...] Anselmo Prather PT documented in this encounter [facility] 10-01-2022 Miscellaneous Notes Request completed and faxed. Confirmed and filed. Johanna Kim Ma Type of letter/form/fax request - Medical Necessity Form received from Luciana Mary on 2c floor and placed on [facility] Tera Phelpslin's desk for completion. Completed form needs to be faxed to [phone]. Route to JUANJO when form completed for processing documented in this encounter [facility] 09-30-2022 History of Present illness Narrative Episode [...] Anselmo Prather PT documented in this encounter [facility] 09-26-2022 History of Present illness Narrative Episode [...] Anselmo Prather PT documented in this encounter [facility] 09-23-2022 History of Present illness Narrative Episode [...] Anselmo Prather PT documented in this encounter [facility] 09-11-2022 Miscellaneous Notes Addended by: JOSE CACERES on: 09/11/2022 12:53 PM Modules accepted: Orders [facility], [facility] stated what they received was blank. documented in this encounter [facility] 09-05-2022 History of Present illness Narrative CT scheduled. Follow up request to cardiology clinical consultant. documented in this encounter [facility] 08-21-2022 Miscellaneous Notes Spoke with pt and [...] for fall risk. 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 Equipment Owned: [...] hour of wear time per day until radio time buyer wear is achieved. Pt was educated on [...] Custom biomechanical foot orthotics with serial number: #[id number] were issued to patient and proof of receipt form signed by pt and therapist. All specifications for custom foot orthotics can be found in orthotic evaluation visit note. Planned Interventions: Follow up as needed for brace fitting/issues. Billing:[facility]: Orthotics Management and Training ([id number]): 1:1 time: 20 minutes (1 unit: 8-22 mins) Equipment: [id number] x2 pair of custom foot orthotics Total time: 20 minutes Anselmo Prather PT documented in this encounter [facility] 08-19-2022 Note [facility] 08-19-2022 Note [facility] 08-19-2022 History of Present illness Narrative Chief [...] Date A-fib (HCC) Dr. Cody Breast cancer ([facility]) 1998 lobular, left side. Stage I, ER+/TN+/HER2-. Seeing Dr. 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 wjzbn-xb-4-zhx-wbc-gueqvhh-ast [phone] mg cap Take 1 tablet by mouth. [...] Lymph 1.00 - 4.00 k/uL 0.89 (L) [place]% % 9.6 Abs [place] <0.87 k/uL 0.27 Eosin% % 3.2 Abs [...] settings nightly. 8. 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 F/u with cardiology recommendations. 9. Atrial fibrillation, chronic (HCC) - ICD9: 427.31, ICD10: I48.20 Rate controlled. Continue anticoagulation for now. Will need to reconsider if balance does not improve. F/u with cardiology recommendations. Tala Negron MD documented in this encounter [facility] 08-18-2022 Miscellaneous Notes SW called and spoke to pt this morning. Pt reports she needs assistance sending her new prescription insurance information to [employer]. Pt reports she will stop into SW office today for SW to copy and send. MICHAEL Shin-Serina Patient stopped at the [employer] desk asking for Terry to assist with getting her insurance information to [employer]. Please contact patient. Kizzy June documented in this encounter [facility] 08-15-2022 Note [facility] 08-15-2022 History of Present illness Narrative Chief [...] mastectomy for what proved to be a [id number] ER+/TN+/HER2- breast cancer. The tumor was 1.6 cm. [...] tissue edges. The invasive carcinoma is a [place] Grade 3; definitive dermal angiolymphatic space invasion [...] EDK/edk 03/27/2020 COMMENT The prior excisional biopsy ([id number]) contained a 12 mm focus of invasive [...] receptor: Positive (50%, moderate) Specimen number #: [id number] (HER2) ERBB2 Status: Previously performed and reported [...] chest pain, +ST elevation, once transported to [facility] an immediate catherization was done-no significant coronary [...] - 4.00 k/uL 1.58 1.42 0.89 (L) [place]% % 7.8 7.0 9.6 Abs [place] <0.87 k/uL 0.26 0.23 0.27 Eosin% % [...] as necessary for today's visit. Nimisha Aleman APRN.UROGYNECOLOGY PHYSICIAN documented in this encounter [facility] 08-08-2022 Miscellaneous Notes Spoke with patient: Alternates between 2 tablets and 4 tablets every other day. Patient requesting 90 day supply. Updated patient's [facility] pharmacy to clarify dosage, requesting new script is sent in for 90 day supply. Lisa Abernathy RN August 08, 2022 4:52 PM documented in this encounter [facility] 08-08-2022 Miscellaneous Notes Call from patient requesting refill. Requested Prescriptions Pending Prescriptions Disp Refills potassium chloride ER (K-DUR, KLOR-CON) 20 mEq tablet 150 tablet 3 Sig: TAKE 2 TABLETS BY MOUTH EVERY 48 HOURS AND 4 TABLETS BY MOUTH EVERY 48 HOURS Patient last seen 04/02/22 Jose Duenas documented in this encounter [facility] 08-07-2022 Miscellaneous Notes Patient has been identified [...] Samantha Guerrero LPN documented in this encounter [facility] 08-07-2022 Miscellaneous Notes LYSSA approved. Coverage dates: 06/22/2022 to 11/05/2022 ([place]: [id number]) PA SUBMITTED documented in this encounter [facility] 08-07-2022 Note [facility] 08-07-2022 Instructions Earnestine Howell RN - 08/07/2022 [...] contact our clinic. documented in this encounter [facility] 08-07-2022 History of Present illness Narrative DERMATOLOGY CONSULT FOR MOHS SERVICE DATE: 08/07/2022 PRIMARY CARE PHYSICIAN: Tala Negron MD REFERRING PROVIDER: Macrina Lerma MD [facility] [address] [place] [phone] Consultation requested for an opinion regarding the evaluation and treatment of skin cancer. My final impression and recommendations will be communicated back to the requesting physician by way of the shared medical record or letter via US mail. SUBJECTIVE CHIEF COMPLAINT: SCC HISTORY OF PRESENT ILLNESS BIOPSY INFORMATION: 1. 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 Cody Breast cancer ([facility]) 1998 lobular, left side. Stage I, ER+/TN+/HER2-. Seeing Dr. Friend Chronic diastolic CHF (congestive heart failure) ([facility]) Coronary artery disease mild Elevated alkaline phosphatase level Falls frequently GERD (gastroesophageal reflux disease) HTN (hypertension) Hyperparathyroidism ([facility]) IPMN (intraductal papillary mucinous neoplasm) 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, estrogen receptor positive ([facility]) 01/09/2017 Osteoarthritis, knee Pancreatic cyst 11/2019 Pancreatitis [...] COMPLETE Left 02/12/2017 Left Compl Mast: pT1cNx, ER/TN+, HER2 Neg IDC w/Radial Margin MIDLINE INSERTION/CONSULT [...] 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 [facility] 2017, 70: 252-289 MEDICAL CONDITIONS: HX [...] Nose, Chin, Lips, Ears, Periauricular Skin and [place]) Pre-op Size: 0.6 cm - 1 cm, [...] PM PAGER/CONTACT #: documented in this encounter [facility] 08-04-2022 Note HNO ID: [id number] Author: Magalie Clark Service: ? Author Type: ? Type: Progress Notes Filed: 08/04/2022 4:57 PM Note Text: Waiting for LEIF office note for follow up [facility] 08-04-2022 History of Present illness Narrative Waiting for LEIF office note for follow up documented in this encounter [facility] 07-29-2022 Miscellaneous Notes Addended by: KIZZY AYALA on: 07/29/2022 10:01 PM Modules accepted: Orders documented in this encounter [facility] 07-29-2022 Note [facility] 07-29-2022 History of Present illness Narrative [facility] INCIDENTAL LUNG NODULE PROGRAM ([facility] Follow-Up) Assessment / Plan 1. Lung nodule [...] Low I spent more than 25 minutes fyem-xo-apjx with the patient and over half the time was devoted to counseling and/or coordination of care. DISTANCE HEALTH VISIT NOTE This is a selection box for telephone visit , virtual visit using Couple video visit . It required patient-provider interaction [...] (HCC) 1998 lobular, left side. Stage I, ER+/TN+/HER2-. Seeing Dr. 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 [place] [Hydrocodone-* Vomiting Penicillins Other: See Comments blisters [...] APRN.EUNICE Pulmonary & Critical Care Medicine Respiratory [place] July 29, 2022 8:45 AM CC: Tala Negron MD documented in this encounter [facility] 07-28-2022 Note [facility] 07-28-2022 History of Present illness Narrative Episode [...] visit and 1 visit for fitting and fruit or nut picker) Planned Treatment Interventions: Orthosis / DME, Body Mechanics Training, Patient/Family/Caregiver Education, Self-half-way management (89278), Gait Training (85673) PLAN FOR NEXT VISIT: Fitting and fruit or nut picker of custom foot orthotics Patient demonstrates [...] Anselmo Prather PT documented in this encounter [facility] 07-24-2022 Note [facility] 07-22-2022 Miscellaneous Notes Done. Nimisha Aleman APRN.UROGYNECOLOGY PHYSICIAN Please place order for a stat BMP or CMP or Creatinine for pt appt is 07/24/22 documented in this encounter [facility] 07-10-2022 Miscellaneous Notes Patient needs Rx resent to [facility]. She realizes that this was sent in November for 1 year but she had pharmacy issues and needs it sent again. Angy Schultz LPN documented in this encounter [facility] 07-07-2022 Miscellaneous Notes Confirmed receipt of photo from the patient. She reports the biopsy site is the small red area in the central supratip of her nose. DEPARTMENT OF DERMATOLOGY DERMATOLOGY SURGERY APPOINTMENT ROUTING SLIP A. 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 Office states they are unable to e-mail a photo as their consult order was not sent to [facility] derm but rather to the patients PCP and the PCP would have to request the photo. They are unable to send to [facility] derm at this time. Recommended procedure: [...] No Patient instructed to call Derm Surgery ([phone]) if they have not received a call from them in 1 week. Spoke to patient and she will send a photo to us via Couple. Patient states the biopsy site was in [...] preference Omr received documented in this encounter [facility] 07-02-2022 Miscellaneous Notes I called and spoke to [facility] dermatology and they stated they need the records and pathology report from [facility] before they can schedule patient for the mohs procedure there. I called [facility] but they are already closed for the day. Please try calling them and requesting that they fax records (Last visit notes) and pathology to [facility] dermatology at [phone]. Then we can call them back after we know they received the records and schedule Queenie for the Mohs procedure. July Zaragoza Pss Please see my chart message. Pt. would like to have Mohs procedure done at [facility] derm. Please schedule. Thank you. Nimisha Aleman APRN.EUNICE documented in this encounter [facility] 06-03-2022 History of Present illness Narrative [facility] INCIDENTAL LUNG NODULE PROGRAM ([facility] Follow-Up) Assessment / Plan 1. Lung nodule [...] Nodule program: Yes Lung Nodule Program Location: [place] Thank you for allowing me to participate in the care of Queenie Adan. Please feel free to contact me with any questions or concerns. Medical Decision Making: Problems: Moderate: 1+ chronic illnesses with change Data: Unique test result(s) reviewed: 2 Medical Decision Making Level: 3 - Low I spent more than 30 minutes ypep-ed-qrzd with the patient and over half the time was devoted to counseling and/or coordination of care. DISTANCE HEALTH VISIT NOTE This is a selection box for telephone visit , virtual visit using Couple video visit . It required patient-provider interaction [...] (HCC) 1998 lobular, left side. Stage I, ER+/TN+/HER2-. Seeing Dr. 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 IMPRESSION: New right lower lobe pulmonary nodule. Metastatic disease cannot be excluded. Stable left lung nodule. Short interval follow-up recommended ACTIONABLE RESULT: FOLLOW-UP Acuity: Actionable Findings: Thoracic-Other Routing Code: CT_1 Recommendation: Unlisted Recommendation (see report) Time Frame: At the discretion of the clinical team. COMMUNICATION: Results will be communicated with the ordering provider via [facility] staff message or phone message by Imaging Support Services within 2 business days of report finalization. I have personally visualized, reviewed and confirmed the imaging findings. Assessment / Plan @LNFOLLOWUP@ To optimize physician communication via the electronic health record, the Assessment & Plan section has been placed at the beginning of this note. ----- Esperanza Yoo APRN.[facility] Pulmonary & Critical Care Medicine Respiratory [place] June 02, 2022 1:18 PM CC: Tala Negron MD documented in this encounter [facility] 05-26-2022 Miscellaneous Notes SW received a [employer] renewal application for pt for Ibrance medication. SW obtained pt's signature and copies of pt's insurance cards. SW had physician review and sign application as well. SW successfully faxed these re-enrollment forms to [employer] this date and sent the original to internal scanning. MICHAEL Shin-S documented in this encounter [facility] 05-23-2022 History of Present illness Narrative Chief [...] mastectomy for what proved to be a [id number] ER+/TN+/HER2- breast cancer. The tumor was 1.6 cm. [...] tissue edges. 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 - Large organizing hematoma and stromal scar. - Biopsy site reparative changes. EDK/edk 03/27/2020 COMMENT The prior excisional biopsy ([id number]) contained a 12 mm focus of invasive [...] receptor: Positive (50%, moderate) Specimen number #: [id number] (HER2) ERBB2 Status: Previously performed and reported [...] chest pain, +ST elevation, once transported to [facility] an immediate catherization was done-no significant coronary [...] 1.00 - 4.00 k/uL 1.22 1.58 1.42 Nicollet% % 14.8 7.8 7.0 Abs [place] <0.87 k/uL 0.49 0.26 0.23 Eosin% % [...] as necessary for today's visit. Nimisha Aleman APRN.UROGYNECOLOGY PHYSICIAN documented in this encounter [facility] 05-21-2022 History of Present illness Narrative Chief [...] mg daily. Managed by oncology here in [place]. Notes that they found new lung nodule [...] History PAST MEDICAL HISTORY Diagnosis Date A-fib ([facility]) Dr. Cody Breast cancer ([facility]) 1998 lobular, left side. Stage I, ER+/TN+/HER2-. Seeing Dr. Friend Chronic diastolic CHF (congestive heart failure) ([facility]) Coronary artery disease mild Elevated alkaline phosphatase level Falls frequently GERD (gastroesophageal reflux disease) HTN (hypertension) Hyperparathyroidism ([facility]) IPMN (intraductal papillary mucinous neoplasm) 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, estrogen receptor positive ([facility]) 01/09/2017 Osteoarthritis, knee Pancreatic cyst 11/2019 Pancreatitis [...] COMPLETE Left 02/12/2017 Left Compl Mast: pT1cNx, ER/TN+, HER2 Neg IDC w/Radial Margin MIDLINE INSERTION/CONSULT [...] 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 utvpg-ki-4-fgb-gwu-kuadbmy-ast [phone] mg cap Take 1 tablet by mouth. [...] Abs Lymph 1.00 - 4.00 k/uL 1.42 Nicollet% % 7.0 Abs [place] <0.87 k/uL 0.23 Eosin% % 3.0 Abs [...] MG TABLET 7. 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 Tala Negron MD documented in this encounter [facility] 05-16-2022 History of Present illness Narrative RADIOLOGY [...] 07:45 PATIENT DISCHARGED TO: Ambulatory patient, left [place] department area. A Diagnostic radioactive procedure has taken place, with no further precautions necessary other than routine body substance precautions. More information regarding radiation safety can be found using this link: [email or web address] [email or web address]%20Nuclear %20Medicine%[email or web address] SIGNATURE: WILLIE Grey PATIENT NAME: Queenie Adan DATE: May 16, 2022 TIME: 10:38 AM PAGER/CONTACT #: documented in this encounter [facility] 03-21-2022 History of Present illness Narrative PRIMARY CARE COORDINATION QUICK NOTE Provider Action/FYI Chart reviewed, goals, falls, adl's updated. Patient identified by name and date . documented in this encounter [facility] 03-18-2022 Miscellaneous Notes I spoke with patient [...] Esperanza Yoo APRN.CNP documented in this encounter [facility] 03-10-2022 Miscellaneous Notes March 10, 2022 PID: [id number] Queenie Caro Orquidea Adan [address] [facility] [address] [place] [address] Dear Apolonia Adan, We are pleased to [...] report will be kept on file at [facility] as part of your permanent medical record and are available for your continuing care. Thank you for allowing us to help in meeting your health care needs. Sincerely, Dr. Zapata Interpreting Radiologist (Normal over 40) documented in this encounter [facility] 02-28-2022 History of Present illness Narrative Chief [...] mastectomy for what proved to be a [id number] ER+/TN+/HER2- breast cancer. The tumor was 1.6 cm. [...] EDK/edk 03/27/2020 COMMENT The prior excisional biopsy ([id number]) contained a 12 mm focus of invasive [...] receptor: Positive (50%, moderate) Specimen number #: [id number] (HER2) ERBB2 Status: Previously performed and reported [...] chest pain, +ST elevation, once transported to [facility] an immediate catherization was done-no significant coronary [...] 1.00 - 4.00 k/uL 1.76 1.22 1.58 Nicollet% % 11.3 14.8 7.8 Abs [place] <0.87 k/uL 0.61 0.49 0.26 Eosin% % [...] - Follow up May 23 @12:30 with CBC/MXOMT10-2/CA27.29 - Pt. aware to call office with any questions/concerns. The patient indicates understanding of these issues and agrees with the plan. All documentation from previous visit of 11/11/21-Dr. Thao/myself was copied and pasted, documentation has been reviewed and edited as necessary for today's visit. Nimisha Aleman APRN.CNP documented in this encounter [facility] 02-17-2022 Instructions Kizzy Ayala APRN.CNP - 02/17/2022 [...] 6 months *Self-Pay documented in this encounter [facility] 02-17-2022 History of Present illness Narrative Images from the original note were not included. 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 When Luciana here in [place] reset her PAP machine it erased window. This is very upsetting to her. She likes to wake up and see what her events were the night before. My nurse, Cullen, at [place] may be able to assist her. [place]; so will send a See[employer] message when she heads this way and will ask Cullen to look at her machine. See if we can restore her window. Also with some complaints of irritation behind her ears. Little scabby. She will be leaving soon to go to [place] X 3 weeks. She has another PAP machine there too and it needs reset to auto-titrating CPAP 5-8 cmH2O with humidification and with concurrent use of oral appliance. She has requested a script be mailed to her that she can give to [facility] in [place]; so machine can be reset. Plan: 1) [...] AutoPAP adjusted to 5-8 cmH20 (machine in [place]). 4) Message sent to Cullen about looking at patient's machine here in [place] when she visits [place]. Luciana erased her [...] questions, feel free to send me a SeeMedia message or contact [place] office at [phone] (after hours, leave message at [phone]). I spent a total of 40 minutes as this was an established patient to me on the date of the service which included preparing to see the patient, cewb-de-xupp patient care, completing clinical documentation, counseling and [...] PAP compliance data: Device interrogated in room. RespirNASOFORM DreamStation 2 Advanced Pressure 5-8 cmH20 Mode [...] use. ------- SLEEP HYGIENE QUESTIONS: Bedtime : 2483-7899 Wake up Time : 1266-4240 Going to the gym twice a week. 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 xasea-bh-3-kxr-qic-cijwcpp-ast [phone] mg cap Take 1 tablet by mouth. [...] of new supplies Will send script to [facility]. - Remember to clean your mask and [...] -- also called portable monitoring or an kit-ap-ymeowu sleep test, is a diagnostic test sleep professionals and doctors use to diagnose obstructive sleep apnea. A technically adequate HSAT device incorporates a minimum of the following sensors: nasal pressure, chest and abdominal respiratory inductance plethysmography, and oximetry; or peripheral arterial tonometry (PAT) with oximetry and actigraphy (2). - Call [phone] to schedule your home sleep study if [...] numbers, based upon your location preference: - [facility] or [facility] - [phone] or toll free at [phone] - [place] - [phone] - [place] - [phone] - [place] - [phone] The device will be delivered to your home via UPS. You do not need to be home to sign for the package. Please use the equipment the night you receive it and return the equipment the following day. UPS packaging and return postage are included. Your device will contain instructions how to use the equipment and a contact number for a clinical lab technologist. The technologist can help address any problems that occur during the test. You will receive a telephone call or a [employer] chart message approximately 1 week prior to receiving the home sleep apnea test equipment. To reschedule please call [phone]. - Avoid driving when drowsy. Recommend that if you are dozing off while driving, that you do not drive until your sleepiness is appropriately treated. -Encouraged healthy lifestyle with adequate sleep ( 7-9 hours per night), diet and exercise. Will call and send HSAT results to patient. Follow up in 1 year. If you have questions, feel free to send me a See[employer] message. I spent a total of 30 minutes as this was an established patient to me on the date of the service which included preparing to see the patient, exmq-jr-pgcw patient care, completing clinical documentation, counseling and educating the patient/family/caregiver and ordering medications, tests, or procedures. Kizzy Ayala APRN.EUNICE documented in this encounter [facility] 02-14-2022 History of Present illness Narrative Chief [...] (HCC) 1998 lobular, left side. Stage I, ER+/TN+/HER2-. Seeing Dr. 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 pfynx-tb-0-sgc-cdc-pwaidge-ast [phone] mg cap Take 1 tablet by mouth. [...] Abs Lymph 1.00 - 4.00 k/uL 1.22 Nicollet% % 14.8 Abs [place] <0.87 k/uL 0.49 Eosin% % 2.7 Abs [...] 3 months. 6. 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) - ICD9: [...] for - ICD9: V76.12, ICD10: Z12.31 - [facility] SCREENING Tala Negron MD documented in this encounter [facility] 02-14-2022 History of Present illness Narrative HPB [...] which included preparing to see the patient, nahh-jf-wtny patient care, completing clinical documentation, obtaining and/or reviewing separately obtained history, performing a medically appropriate examination, counseling and educating the patient/family/caregiver, ordering medications, tests, or procedures, communicating results to the patient/family/caregiver, and care coordination (not separately reported). Anirudh Gomez MD [facility] surgery Pager: [phone] documented in this encounter [facility] 02-11-2022 Miscellaneous Notes Call from patient requesting refill. Requested Prescriptions Pending Prescriptions Disp Refills potassium chloride ER (KLOR-CON M20) 20 mEq tablet 120 tablet 3 Sig: Take 2 tablets by mouth every 48 hours AND 4 tablets every 48 hours. Patient last seen 11/26/21 Jose Duenas documented in this encounter [facility] 02-06-2022 Miscellaneous Notes Refills sent as requested. [...] Abigail Vargas LPN documented in this encounter [facility] 02-05-2022 History of Present illness Narrative Radiology [...] TIME: 2:38 PM documented in this encounter [facility] 01-07-2022 Miscellaneous Notes Please see my chart message and schedule OV 02/28 @ 1pm labs prior (same as previous-cancel OV 02/21. Thank you. Nimisha Aleman APRN.CNP documented in this encounter [facility] 01-06-2022 Miscellaneous Notes MALIK Pt Assistance for Dean is through [employer] and her assistance program will end 06/21/22. She will need to re-enroll. [phone] Her program ID # is [id number] For available refills pt can call this number to set up shipment 7-10 days prior. Chelsie Mcadams LPN documented in this encounter [facility] 12-30-2021 Miscellaneous Notes Social Work Problem Referral Note INFORMATION/REFERRAL : Queenie Adan 76 year old female was referred by [facility] to [facility] Social Work for the following reason(s): financial assistance - meals, parking, etc. PERSONS INTERVIEWED: patient not present INTERVENTION: Information & Referral Service Co-ordination Affect/Mood: The patient is noted as patient not present IDENTIFIED PROBLEMS/NEEDS: Financial Intervention/Referral to be provided:Arrangements made for continuity of care IMPRESSION/PLAN: SW received fax from [employer] stating updated prescription is needed. ZANE had this completed and reviewed/signed by physician. ZANE faxed to [employer] on this day. F/U APPOINTMENT: PRN Assigned ZANE listed in Care Team tab: Yes MICHAEL Valencia documented in this encounter [facility] 12-13-2021 Miscellaneous Notes Called and spoke to [...] Vladimir Thao DO documented in this encounter [facility] 12-12-2021 Miscellaneous Notes Couple message sent to patient. documented in this encounter [facility] 11-29-2021 Nurse Note Ms. Orquidea Adan presents [...] 2021 11:42 AM documented in this encounter [facility] 11-26-2021 History of Present illness Narrative Images from the original note were not included. [facility] [place] Jorge Alberto Diaz Department of Cardiovascular Medicine SECTION OF HEART FAILURE AND CARDIAC TRANSPLANT MEDICINE OUTPATIENT VISIT DATE November 26, 2021 OUTPATIENT VISIT TYPE Virtual Encounter This Team Access Model visit is a virtual encounter. It required patient-provider interaction for the medical decision making as documented below. PRIMARY CARE PHYSICIAN: Tala Negron [address] [place] [address] CHIEF COMPLAINT: HF Management HISTORY OF PRESENT [...] last seen in clinic on 07/12/21 via [facility]. At that time, she reported overall doing well. Main concern today has been noted low heart rates at night on apple watch. She just had repeat sleep study to see if oral appliance alone would help. New pressure settings started just 2 nights ago. She feels well - sleeps 8-9 hrs per night. Vaccinated. No COVID ever. Sent vitals over [employer] yesterday and all look great! 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 She has been vaccinated against COVID-19 (including 2 boosters). From a cardiovascular perspective, pt continues to do well and specifically denies any CP, SOB, syncope, orthopnea, focal neuro sx, post-prandial abdominal pain, or claudication. PAST CARDIAC HISTORY: SEE HPI PAST MEDICAL HISTORY: PAST MEDICAL HISTORY Diagnosis Date A-fib ([facility]) Dr. Cody Breast cancer ([facility]) 1998 lobular, left side. Stage I, ER+/TN+/HER2-. Seeing Dr. 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 tchxs-li-8-vbk-qfv-mvtwdhm-ast [phone] mg cap Take 1 tablet by mouth. [...] the abdomen and pelvis are dictated separately Apprentice Painter Hand (topogram) images: No additional findings. I have [...] Abs Lymph 1.00 - 4.00 k/uL 1.22 Nicollet% % 14.8 Abs [place] <0.87 k/uL 0.49 Eosin% % 2.7 Abs [...] Upload an image of LE edema to Couple to help me differentiate between HF edema [...] counseling and/or coordinating care for the patient. Vtev-ko-drcz time was 30 minutes. We discussed natural history of disease, current treatment options, and future potential treatment options. We discussed diet, exercise, other non-medical management as above. Orders Placed This Encounter [facility] VIRTUAL VISIT APPOINTMENT Order Comments: 2-3 month VV with me Order Specific Question: Department Answer: CVM Order Specific Question: Appt Type Answer: EST Online E&M Level 3 ($362) [id number] Order Specific Question: Date of Appt Answer: [...] Past Histories independently gathered by the clinical decision support manager and the remaining scribed note accurately describes my personal service to the patient. Daniela Chan DO, [facility] Staff, Section of Heart Failure and Transplantation Medicine [facility] Alberto [facility] Department of Cardiovascular Medicine [facility] [place] [address] Phone - [phone] FAX - [phone] Answers for HPI/ROS submitted by the patient [...] No Headaches: No documented in this encounter [facility] 11-25-2021 History of Present illness Narrative INSIGHT CDM ESCALATION FYI: Attempt made to contact pt for Insight [facility] questionnaire triggered escalation. Unable to contact, LM [...] name is Serina Stevens RN from the [facility]. I am calling about your responses to our [employer] questionnaire. Sorry I am not able to speak with you. If you have a problem that needs to be addressed by your physician please contact your PCP office [facility] Outreach documented in this encounter [facility] 11-21-2021 History of Present illness Narrative Radiology [...] 2021 2:49 PM documented in this encounter [facility] 11-21-2021 History of Present illness Narrative RADIOLOGY [...] 09:40 PATIENT DISCHARGED TO: Ambulatory patient, left [place] department area. A Diagnostic radioactive procedure has taken place, with no further precautions necessary other than routine body substance precautions. More information regarding radiation safety can be found using this link: [email or web address] [email or web address]%20Nuclear %20Medicine%[email or web address] SIGNATURE: RT Que(R) PATIENT NAME: Queenie Adan DATE: November 21, 2021 TIME: 10:07 AM PAGER/CONTACT #: documented in this encounter [facility] 11-19-2021 Instructions Howard Cody MD - 11/19/2021 9:51 AM EDT Images from the original note were not included. [facility] [place] Jorge Alberto Diaz Department of Cardiovascular Medicine SECTION OF CARDIAC PACING and ELECTROPHYSIOLOGY OUTPATIENT VISIT DATE November 19, 2021 OUTPATIENT VISIT TYPE ESTABLISHED PRIMARY CARE PHYSICIAN: Tala Negron [address] [place] [address] Cardiology Physician: Daniela Chan MD [facility] CHIEF [...] maintained on Toprol. She was admitted to [facility] on 08/15/20 with EKG findings concerning for [...] (HCC) 1998 lobular, left side. Stage I, ER+/TN+/HER2-. Seeing Dr. 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 pujqn-cp-1-jqe-xjj-ncqypom-ast [phone] mg cap Take 1 tablet by mouth. [...] by others. [place] [id number] November 19, 2021 9:35 AM documented in this encounter [facility] 11-19-2021 History of Present illness Narrative Images from the original note were not included. [facility] [place] Jorge Alberto Diaz Department of Cardiovascular Medicine SECTION OF CARDIAC PACING and ELECTROPHYSIOLOGY OUTPATIENT VISIT DATE November 19, 2021 OUTPATIENT VISIT TYPE ESTABLISHED PRIMARY CARE PHYSICIAN: Tala Negron [address] [place] [address] Cardiology Physician: Daniela Chan MD [facility] CHIEF [...] disease PAST MEDICAL HISTORY Diagnosis Date A-fib ([facility]) Dr. Cody Breast cancer ([facility]) 1998 lobular, left side. Stage I, ER+/TN+/HER2-. Seeing Dr. 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 pmpbt-rp-3-xtu-kzy-qjfdgyu-ast [phone] mg cap Take 1 tablet by mouth. [...] by others. [place] [id number] November 19, 2021 9:35 AM documented in this encounter [facility] 11-12-2021 Miscellaneous Notes Patient notified and will contact battery loader. Angy Schultz LPN Please inform pt. Thank you. Nimisha Aleman APRN.EUNICE Okay from oncology standpoint. Vladimir Thao DO Pt. was seen by Endo 2020. Recommending reclast dx osteoporosis. Wanted your opinion to start. Thank you. Nimisha Aleman APRN.EUNICE documented in this encounter [facility] 11-08-2021 Instructions Tala Negron MD - 11/08/2021 10:43 AM EDT Take 1/2 tablet of your 40 mg Lipitor daily for the next week and call with update on leg swelling. documented in this encounter [facility] 11-08-2021 History of Present illness Narrative Chief [...] History PAST MEDICAL HISTORY Diagnosis [facility] [place] Dr. Cody Breast cancer ([facility] [place]) 1998 lobular, left side. Stage I, ER+/TN+/HER2-. Seeing Dr. 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 [id number] [phone] mg cap Take 1 tablet by mouth. [...] Lymph 1.00 - 4.00 k/uL 1.76 1.22 [place]% % 11.3 14.8 Abs [place] <0.87 k/uL 0.61 0.49 Eosin% % 4.2 [...] CXR today. 4. 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 Liza Hall, RN Reschedule 11/08 1140a appt to different time as 1140a is during STAMP meeting. documented in this encounter [facility] 10-28-2021 Miscellaneous Notes Insurance is requesting 90 day supply. Pended appropriately with pharmacy verified. RX INSTRUCTIONS: Patient aware RX will be sent to pharmacy. No need to notify patient. Last OV: 10/14/21 with PCP Last refill: 08/10/2021 With 60 and 5 refills Last oarrs report completed: N/A PLEASE REVIEW ON EPIC Follow up: 11/08/2021 with PCP Tera Jacinto MA documented in this encounter [facility] 10-28-2021 Miscellaneous Notes Patient notified of results, verbalizes understanding of instructions. Tera Jacinto MA ----- Message from Tala Negron MD sent at 10/28/2021 1:22 PM EDT ----- Chest xray shows chronic lung changes with improving right upper lobe pneumonia. As long as shortness of breath symptoms are improving from last OV, would not add new rx at this time. documented in this encounter [facility] 10-28-2021 History of Present illness Narrative Radiology [...] 2021 10:34 AM documented in this encounter [facility] 10-16-2021 Miscellaneous Notes Patient notified and voiced her understanding. Records faxed. Patient telephoned. Made aware of message below. Results faxed. Labs show mild stable anemia without infection. Also shows possible worsening of heart function with elevated BNP. This may be contributing to her SOB. I would recommend she contact Dr. Oilvares's office about her symptoms for evaluation POP. Please fax results to Dr. Olivares's office. If she develops new symptoms of chest pain, leg swelling, palpitations, or worsening SOB would recommend calling 911 instead of waiting for further evaluation. documented in this encounter [facility] 10-14-2021 Miscellaneous Notes Spoke with patient. Given [...] chest pain, wheezing. documented in this encounter [facility] 10-14-2021 History of Present illness Narrative Chief [...] History PAST MEDICAL HISTORY Diagnosis Date A-fib ([facility] [place]) Dr. Cody Breast cancer ([facility] [place]) 1998 lobular, left side. Stage I, ER+/TN+/HER2-. Seeing Dr. 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 [id number] [id number] mg cap Take 1 tablet by mouth. [...] effusion. 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 Red flags for re-assessment reviewed with patient in detail. - ECG COMPLETE - XR CHEST 2V FRONTAL/LAT - CBC + DIFF - NT PRO BNP 2. Hemoptysis - ICD9: 786.30, ICD10: R04.2 Obtain labs as ordered. To go to the ED with recurrent symptoms. Tala Negron MD documented in this encounter [facility] 10-14-2021 History of Present illness Narrative [employer]IGATION OUTREACH Action/FYI Spoke with pt. Pt scheduled to see Dr. Negron today, 10/14/21 for worsening SOB with activity. Pt identified by name and : YES, via phone Outreach Outcome/Action Spoke to patient or caregiver: Patient scheduled Reason for Outreach Community [employer] [place] Payer: Payor: MEDICARE / Plan: MEDICARE A [...] reported new or worsening sob w/activity via [facility] Spoke to pt, states she was in [place] for 3 weeks where the pollen was [...] made with patient ACTION TAKEN: Based on wind tunnel mechanic, the following disposition is advised: SYMPTOMS PRESENT NOT SEVERE: Visit (Telehealth, Virtual or In Office) with PCP within 48 hours - Routed to [facility] pool [[id number]] - End outreach / Phone Call documented in this encounter [facility] documented as of this encounter (statuses as of 10/09/2021) [facility]21 History of Past illness Narrative* Problem Noted Date Resolved Date Adenopathy 12/25/2020 03/25/2021 Nausea with vomiting 08/17/2020 08/20/2020 Last Assessment & Plan: Assessment: 200cc bilious emesis 08/16 PLAN: -Protonix 40mg IV daily -Compazine 5mg IV q6hr PRN Primary hypertension 01/20/2017 08/05/2018 A-fib 03/06/2017 HTN (hypertension) 03/06/2017 documented as of this encounter (statuses as of 10/14/2021) [facility] History of Past illness Narrative* Problem Noted Date Resolved Date Adenopathy 12/25/2020 03/25/2021 Nausea with vomiting 08/17/2020 08/20/2020 Last Assessment & Plan: Assessment: 200cc bilious emesis 08/16 PLAN: -Protonix 40mg IV daily -Compazine 5mg IV q6hr PRN Primary hypertension 01/20/2017 08/05/2018 A-fib 03/06/2017 HTN (hypertension) 03/06/2017 documented as of this encounter (statuses as of 10/14/2021) [address]-2021 History of Past illness Narrative* Problem Noted Date Resolved Date Adenopathy 12/25/2020 03/25/2021 Nausea with vomiting 08/17/2020 08/20/2020 Last Assessment & Plan: Assessment: 200cc bilious emesis 08/16 PLAN: -Protonix 40mg IV daily -Compazine 5mg IV q6hr PRN Primary hypertension 01/20/2017 08/05/2018 A-fib 03/06/2017 HTN (hypertension) 03/06/2017 documented as of this encounter (statuses as of 10/17/2021) [address]-2021 History of Past illness Narrative* Problem Noted Date Resolved Date Adenopathy 12/25/2020 03/25/2021 Nausea with vomiting 08/17/2020 08/20/2020 Last Assessment & Plan: Assessment: 200cc bilious emesis 08/16 PLAN: -Protonix 40mg IV daily -Compazine 5mg IV q6hr PRN Primary hypertension 01/20/2017 08/05/2018 A-fib 03/06/2017 HTN (hypertension) 03/06/2017 documented as of this encounter (statuses as of 10/17/2021) [facility] History of Past illness Narrative* Problem Noted Date Resolved Date Adenopathy 12/25/2020 03/25/2021 Nausea with vomiting 08/17/2020 08/20/2020 Last Assessment & Plan: Assessment: 200cc bilious emesis 08/16 PLAN: -Protonix 40mg IV daily -Compazine 5mg IV q6hr PRN Primary hypertension 01/20/2017 08/05/2018 A-fib 03/06/2017 HTN (hypertension) 03/06/2017 documented as of this encounter (statuses as of 10/18/2021) [facility] History of Past illness Narrative* Problem Noted Date Resolved Date Adenopathy 12/25/2020 03/25/2021 Nausea with vomiting 08/17/2020 08/20/2020 Last Assessment & Plan: Assessment: 200cc bilious emesis 08/16 PLAN: -Protonix 40mg IV daily -Compazine 5mg IV q6hr PRN Primary hypertension 01/20/2017 08/05/2018 A-fib 03/06/2017 HTN (hypertension) 03/06/2017 documented as of this encounter (statuses as of 10/28/2021) [facility] History of Past illness Narrative* Problem Noted Date Resolved Date Adenopathy 12/25/2020 03/25/2021 Nausea with vomiting 08/17/2020 08/20/2020 Last Assessment & Plan: Assessment: 200cc bilious emesis 08/16 PLAN: -Protonix 40mg IV daily -Compazine 5mg IV q6hr PRN Primary hypertension 01/20/2017 08/05/2018 A-fib 03/06/2017 HTN (hypertension) 03/06/2017 documented as of this encounter (statuses as of 10/28/2021) [facility] History of Past illness Narrative* Problem Noted Date Resolved Date Adenopathy 12/25/2020 03/25/2021 Nausea with vomiting 08/17/2020 08/20/2020 Last Assessment & Plan: Assessment: 200cc bilious emesis 08/16 PLAN: -Protonix 40mg IV daily -Compazine 5mg IV q6hr PRN Primary hypertension 01/20/2017 08/05/2018 A-fib 03/06/2017 HTN (hypertension) 03/06/2017 documented as of this encounter (statuses as of 10/29/2021) [facility] History of Past illness Narrative* Problem Noted Date Resolved Date Adenopathy 12/25/2020 03/25/2021 Nausea with vomiting 08/17/2020 08/20/2020 Last Assessment & Plan: Assessment: 200cc bilious emesis 08/16 PLAN: -Protonix 40mg IV daily -Compazine 5mg IV q6hr PRN Primary hypertension 01/20/2017 08/05/2018 A-fib 03/06/2017 HTN (hypertension) 03/06/2017 documented as of this encounter (statuses as of 11/07/2021) [facility] History of Past illness Narrative* Problem Noted Date Resolved Date Adenopathy 12/25/2020 03/25/2021 Nausea with vomiting 08/17/2020 08/20/2020 Last Assessment & Plan: Assessment: 200cc bilious emesis 08/16 PLAN: -Protonix 40mg IV daily -Compazine 5mg IV q6hr PRN Primary hypertension 01/20/2017 08/05/2018 A-fib 03/06/2017 HTN (hypertension) 03/06/2017 documented as of this encounter (statuses as of 11/08/2021) [facility] History of Past illness Narrative* Problem Noted Date Resolved Date Adenopathy 12/25/2020 03/25/2021 Nausea with vomiting 08/17/2020 08/20/2020 Last Assessment & Plan: Assessment: 200cc bilious emesis 08/16 PLAN: -Protonix 40mg IV daily -Compazine 5mg IV q6hr PRN Primary hypertension 01/20/2017 08/05/2018 A-fib 03/06/2017 HTN (hypertension) 03/06/2017 documented as of this encounter (statuses as of 11/12/2021) [facility] History of Past illness Narrative* Problem Noted Date Resolved Date Adenopathy 12/25/2020 03/25/2021 Nausea with vomiting 08/17/2020 08/20/2020 Last Assessment & Plan: Assessment: 200cc bilious emesis 08/16 PLAN: -Protonix 40mg IV daily -Compazine 5mg IV q6hr PRN Primary hypertension 01/20/2017 08/05/2018 A-fib 03/06/2017 HTN (hypertension) 03/06/2017 documented as of this encounter (statuses as of 11/13/2021) [facility] History of Past illness Narrative* Problem Noted Date Resolved Date Adenopathy 12/25/2020 03/25/2021 Nausea with vomiting 08/17/2020 08/20/2020 Last Assessment & Plan: Assessment: 200cc bilious emesis 08/16 PLAN: -Protonix 40mg IV daily -Compazine 5mg IV q6hr PRN Primary hypertension 01/20/2017 08/05/2018 A-fib 03/06/2017 HTN (hypertension) 03/06/2017 documented as of this encounter (statuses as of 11/15/2021) [facility] History of Past illness Narrative* Problem Noted Date Resolved Date Adenopathy 12/25/2020 03/25/2021 Nausea with vomiting 08/17/2020 08/20/2020 Last Assessment & Plan: Assessment: 200cc bilious emesis 08/16 PLAN: -Protonix 40mg IV daily -Compazine 5mg IV q6hr PRN Primary hypertension 01/20/2017 08/05/2018 A-fib 03/06/2017 HTN (hypertension) 03/06/2017 documented as of this encounter (statuses as of 11/19/2021) [facility] History of Past illness Narrative* Problem Noted Date Resolved Date Adenopathy 12/25/2020 03/25/2021 Nausea with vomiting 08/17/2020 08/20/2020 Last Assessment & Plan: Assessment: 200cc bilious emesis 08/16 PLAN: -Protonix 40mg IV daily -Compazine 5mg IV q6hr PRN Primary hypertension 01/20/2017 08/05/2018 A-fib 03/06/2017 HTN (hypertension) 03/06/2017 documented as of this encounter (statuses as of 11/21/2021) [facility] History of Past illness Narrative* Problem Noted Date Resolved Date Adenopathy 12/25/2020 03/25/2021 Nausea with vomiting 08/17/2020 08/20/2020 Last Assessment & Plan: Assessment: 200cc bilious emesis 08/16 PLAN: -Protonix 40mg IV daily -Compazine 5mg IV q6hr PRN Primary hypertension 01/20/2017 08/05/2018 A-fib 03/06/2017 HTN (hypertension) 03/06/2017 documented as of this encounter (statuses as of 11/22/2021) [address]21 History of Past illness Narrative* Problem Noted Date Resolved Date Adenopathy 12/25/2020 03/25/2021 Nausea with vomiting 08/17/2020 08/20/2020 Last Assessment & Plan: Assessment: 200cc bilious emesis 08/16 PLAN: -Protonix 40mg IV daily -Compazine 5mg IV q6hr PRN Primary hypertension 01/20/2017 08/05/2018 A-fib 03/06/2017 HTN (hypertension) 03/06/2017 documented as of this encounter (statuses as of 11/22/2021) [facility] History of Past illness Narrative* Problem Noted Date Resolved Date Adenopathy 12/25/2020 03/25/2021 Nausea with vomiting 08/17/2020 08/20/2020 Last Assessment & Plan: Assessment: 200cc bilious emesis 08/16 PLAN: -Protonix 40mg IV daily -Compazine 5mg IV q6hr PRN Primary hypertension 01/20/2017 08/05/2018 A-fib 03/06/2017 HTN (hypertension) 03/06/2017 documented as of this encounter (statuses as of 11/25/2021) [facility] History of Past illness Narrative* Problem Noted Date Resolved Date Adenopathy 12/25/2020 03/25/2021 Nausea with vomiting 08/17/2020 08/20/2020 Last Assessment & Plan: Assessment: 200cc bilious emesis 08/16 PLAN: -Protonix 40mg IV daily -Compazine 5mg IV q6hr PRN Primary hypertension 01/20/2017 08/05/2018 A-fib 03/06/2017 HTN (hypertension) 03/06/2017 documented as of this encounter (statuses as of 11/26/2021) [facility] History of Past illness Narrative* Problem Noted Date Resolved Date Adenopathy 12/25/2020 03/25/2021 Nausea with vomiting 08/17/2020 08/20/2020 Last Assessment & Plan: Assessment: 200cc bilious emesis 08/16 PLAN: -Protonix 40mg IV daily -Compazine 5mg IV q6hr PRN Primary hypertension 01/20/2017 08/05/2018 A-fib 03/06/2017 HTN (hypertension) 03/06/2017 documented as of this encounter (statuses as of 11/26/2021) [facility] History of Past illness Narrative* Problem Noted Date Resolved Date Adenopathy 12/25/2020 03/25/2021 Nausea with vomiting 08/17/2020 08/20/2020 Last Assessment & Plan: Assessment: 200cc bilious emesis 08/16 PLAN: -Protonix 40mg IV daily -Compazine 5mg IV q6hr PRN Primary hypertension 01/20/2017 08/05/2018 A-fib 03/06/2017 HTN (hypertension) 03/06/2017 documented as of this encounter (statuses as of 11/29/2021) [facility] History of Past illness Narrative* Problem Noted Date Resolved Date Adenopathy 12/25/2020 03/25/2021 Nausea with vomiting 08/17/2020 08/20/2020 Last Assessment & Plan: Assessment: 200cc bilious emesis 08/16 PLAN: -Protonix 40mg IV daily -Compazine 5mg IV q6hr PRN Primary hypertension 01/20/2017 08/05/2018 A-fib 03/06/2017 HTN (hypertension) 03/06/2017 documented as of this encounter (statuses as of 12/12/2021) [facility] History of Past illness Narrative* Problem Noted Date Resolved Date Adenopathy 12/25/2020 03/25/2021 Nausea with vomiting 08/17/2020 08/20/2020 Last Assessment & Plan: Assessment: 200cc bilious emesis 08/16 PLAN: -Protonix 40mg IV daily -Compazine 5mg IV q6hr PRN Primary hypertension 01/20/2017 08/05/2018 A-fib 03/06/2017 HTN (hypertension) 03/06/2017 documented as of this encounter (statuses as of 12/13/2021) [address]21 History of Past illness Narrative* Problem Noted Date Resolved Date Adenopathy 12/25/2020 03/25/2021 Nausea with vomiting 08/17/2020 08/20/2020 Last Assessment & Plan: Assessment: 200cc bilious emesis 08/16 PLAN: -Protonix 40mg IV daily -Compazine 5mg IV q6hr PRN Primary hypertension 01/20/2017 08/05/2018 A-fib 03/06/2017 HTN (hypertension) 03/06/2017 documented as of this encounter (statuses as of 12/20/2021) [address]21 History of Past illness Narrative* Problem Noted Date Resolved Date Adenopathy 12/25/2020 03/25/2021 Nausea with vomiting 08/17/2020 08/20/2020 Last Assessment & Plan: Assessment: 200cc bilious emesis 08/16 PLAN: -Protonix 40mg IV daily -Compazine 5mg IV q6hr PRN Primary hypertension 01/20/2017 08/05/2018 A-fib 03/06/2017 HTN (hypertension) 03/06/2017 documented as of this encounter (statuses as of 12/30/2021) [address]21 History of Past illness Narrative* Problem Noted Date Resolved Date Adenopathy 12/25/2020 03/25/2021 Nausea with vomiting 08/17/2020 08/20/2020 Last Assessment & Plan: Assessment: 200cc bilious emesis 08/16 PLAN: -Protonix 40mg IV daily -Compazine 5mg IV q6hr PRN Primary hypertension 01/20/2017 08/05/2018 A-fib 03/06/2017 HTN (hypertension) 03/06/2017 documented as of this encounter (statuses as of 01/06/2022) [address]21 History of Past illness Narrative* Problem Noted Date Resolved Date Adenopathy 12/25/2020 03/25/2021 Nausea with vomiting 08/17/2020 08/20/2020 Last Assessment & Plan: Assessment: 200cc bilious emesis 08/16 PLAN: -Protonix 40mg IV daily -Compazine 5mg IV q6hr PRN Primary hypertension 01/20/2017 08/05/2018 A-fib 03/06/2017 HTN (hypertension) 03/06/2017 documented as of this encounter (statuses as of 01/07/2022) [facility] History of Past illness Narrative* Problem Noted Date Resolved Date Adenopathy 12/25/2020 03/25/2021 Nausea with vomiting 08/17/2020 08/20/2020 Last Assessment & Plan: Assessment: 200cc bilious emesis 08/16 PLAN: -Protonix 40mg IV daily -Compazine 5mg IV q6hr PRN Primary hypertension 01/20/2017 08/05/2018 A-fib 03/06/2017 HTN (hypertension) 03/06/2017 documented as of this encounter (statuses as of 02/06/2022) [facility] History of Past illness Narrative* Problem Noted Date Resolved Date Adenopathy 12/25/2020 03/25/2021 Nausea with vomiting 08/17/2020 08/20/2020 Last Assessment & Plan: Assessment: 200cc bilious emesis 08/16 PLAN: -Protonix 40mg IV daily -Compazine 5mg IV q6hr PRN Primary hypertension 01/20/2017 08/05/2018 A-fib 03/06/2017 HTN (hypertension) 03/06/2017 documented as of this encounter (statuses as of 02/06/2022) [facility] History of Past illness Narrative* Problem Noted Date Resolved Date Adenopathy 12/25/2020 03/25/2021 Nausea with vomiting 08/17/2020 08/20/2020 Last Assessment & Plan: Assessment: 200cc bilious emesis 08/16 PLAN: -Protonix 40mg IV daily -Compazine 5mg IV q6hr PRN Primary hypertension 01/20/2017 08/05/2018 A-fib 03/06/2017 HTN (hypertension) 03/06/2017 documented as of this encounter (statuses as of 02/11/2022) [facility] History of Past illness Narrative* Problem Noted Date Resolved Date Adenopathy 12/25/2020 03/25/2021 Nausea with vomiting 08/17/2020 08/20/2020 Last Assessment & Plan: Assessment: 200cc bilious emesis 08/16 PLAN: -Protonix 40mg IV daily -Compazine 5mg IV q6hr PRN Primary hypertension 01/20/2017 08/05/2018 A-fib 03/06/2017 HTN (hypertension) 03/06/2017 documented as of this encounter (statuses as of 02/14/2022) [facility] History of Past illness Narrative* Problem Noted Date Resolved Date Adenopathy 12/25/2020 03/25/2021 Nausea with vomiting 08/17/2020 08/20/2020 Last Assessment & Plan: Assessment: 200cc bilious emesis 08/16 PLAN: -Protonix 40mg IV daily -Compazine 5mg IV q6hr PRN Primary hypertension 01/20/2017 08/05/2018 A-fib 03/06/2017 HTN (hypertension) 03/06/2017 documented as of this encounter (statuses as of 02/16/2022) [facility] History of Past illness Narrative* Problem Noted Date Resolved Date Adenopathy 12/25/2020 03/25/2021 Nausea with vomiting 08/17/2020 08/20/2020 Last Assessment & Plan: Assessment: 200cc bilious emesis 08/16 PLAN: -Protonix 40mg IV daily -Compazine 5mg IV q6hr PRN Primary hypertension 01/20/2017 08/05/2018 A-fib 03/06/2017 HTN (hypertension) 03/06/2017 documented as of this encounter (statuses as of 02/17/2022) [facility] History of Past illness Narrative* Problem Noted Date Resolved Date Adenopathy 12/25/2020 03/25/2021 Nausea with vomiting 08/17/2020 08/20/2020 Last Assessment & Plan: Assessment: 200cc bilious emesis 08/16 PLAN: -Protonix 40mg IV daily -Compazine 5mg IV q6hr PRN Primary hypertension 01/20/2017 08/05/2018 A-fib 03/06/2017 HTN (hypertension) 03/06/2017 documented as of this encounter (statuses as of 02/18/2022) [facility] History of Past illness Narrative* Problem Noted Date Resolved Date Adenopathy 12/25/2020 03/25/2021 Nausea with vomiting 08/17/2020 08/20/2020 Last Assessment & Plan: Assessment: 200cc bilious emesis 08/16 PLAN: -Protonix 40mg IV daily -Compazine 5mg IV q6hr PRN Primary hypertension 01/20/2017 08/05/2018 A-fib 03/06/2017 HTN (hypertension) 03/06/2017 documented as of this encounter (statuses as of 02/28/2022) [facility] History of Past illness Narrative* Problem Noted Date Resolved Date Adenopathy 12/25/2020 03/25/2021 Nausea with vomiting 08/17/2020 08/20/2020 Last Assessment & Plan: Assessment: 200cc bilious emesis 08/16 PLAN: -Protonix 40mg IV daily -Compazine 5mg IV q6hr PRN Primary hypertension 01/20/2017 08/05/2018 A-fib 03/06/2017 HTN (hypertension) 03/06/2017 documented as of this encounter (statuses as of 03/12/2022) [facility] History of Past illness Narrative* Problem Noted Date Resolved Date Adenopathy 12/25/2020 03/25/2021 Nausea with vomiting 08/17/2020 08/20/2020 Last Assessment & Plan: Assessment: 200cc bilious emesis 08/16 PLAN: -Protonix 40mg IV daily -Compazine 5mg IV q6hr PRN Primary hypertension 01/20/2017 08/05/2018 A-fib 03/06/2017 HTN (hypertension) 03/06/2017 documented as of this encounter (statuses as of 03/18/2022) [place] [address]06-2021 History of Past illness Narrative* Problem Noted Date Resolved Date Adenopathy 12/25/2020 03/25/2021 Nausea with vomiting 08/17/2020 08/20/2020 Last Assessment & Plan: Assessment: 200cc bilious emesis 08/16 PLAN: -Protonix 40mg IV daily -Compazine 5mg IV q6hr PRN Primary hypertension 01/20/2017 08/05/2018 A-fib 03/06/2017 HTN (hypertension) 03/06/2017 documented as of this encounter (statuses as of 03/21/2022) [address]21 History of Past illness Narrative* Problem Noted Date Resolved Date Adenopathy 12/25/2020 03/25/2021 Nausea with vomiting 08/17/2020 08/20/2020 Last Assessment & Plan: Assessment: 200cc bilious emesis 08/16 PLAN: -Protonix 40mg IV daily -Compazine 5mg IV q6hr PRN Primary hypertension 01/20/2017 08/05/2018 A-fib 03/06/2017 HTN (hypertension) 03/06/2017 documented as of this encounter (statuses as of 05/21/2022) [address]21 History of Past illness Narrative* Problem Noted Date Resolved Date Adenopathy 12/25/2020 03/25/2021 Nausea with vomiting 08/17/2020 08/20/2020 Last Assessment & Plan: Assessment: 200cc bilious emesis 08/16 PLAN: -Protonix 40mg IV daily -Compazine 5mg IV q6hr PRN Primary hypertension 01/20/2017 08/05/2018 A-fib 03/06/2017 HTN (hypertension) 03/06/2017 documented as of this encounter (statuses as of 05/23/2022) [facility] History of Past illness Narrative* Problem Noted Date Resolved Date Adenopathy 12/25/2020 03/25/2021 Nausea with vomiting 08/17/2020 08/20/2020 Last Assessment & Plan: Assessment: 200cc bilious emesis 08/16 PLAN: -Protonix 40mg IV daily -Compazine 5mg IV q6hr PRN Primary hypertension 01/20/2017 08/05/2018 A-fib 03/06/2017 HTN (hypertension) 03/06/2017 documented as of this encounter (statuses as of 05/26/2022) [facility] History of Past illness Narrative* Problem Noted Date Resolved Date Adenopathy 12/25/2020 03/25/2021 Nausea with vomiting 08/17/2020 08/20/2020 Last Assessment & Plan: Assessment: 200cc bilious emesis 08/16 PLAN: -Protonix 40mg IV daily -Compazine 5mg IV q6hr PRN Primary hypertension 01/20/2017 08/05/2018 A-fib 03/06/2017 HTN (hypertension) 03/06/2017 documented as of this encounter (statuses as of 05/26/2022) [facility] History of Past illness Narrative* Problem Noted Date Resolved Date Adenopathy 12/25/2020 03/25/2021 Nausea with vomiting 08/17/2020 08/20/2020 Last Assessment & Plan: Assessment: 200cc bilious emesis 08/16 PLAN: -Protonix 40mg IV daily -Compazine 5mg IV q6hr PRN Primary hypertension 01/20/2017 08/05/2018 A-fib 03/06/2017 HTN (hypertension) 03/06/2017 documented as of this encounter (statuses as of 06/10/2022) [facility]21 History of Past illness Narrative* Problem Noted Date Resolved Date Adenopathy 12/25/2020 03/25/2021 Nausea with vomiting 08/17/2020 08/20/2020 Last Assessment & Plan: Assessment: 200cc bilious emesis 08/16 PLAN: -Protonix 40mg IV daily -Compazine 5mg IV q6hr PRN Primary hypertension 01/20/2017 08/05/2018 A-fib 03/06/2017 HTN (hypertension) 03/06/2017 documented as of this encounter (statuses as of 07/02/2022) [facility] History of Past illness Narrative* Problem Noted Date Resolved Date Adenopathy 12/25/2020 03/25/2021 Nausea with vomiting 08/17/2020 08/20/2020 Last Assessment & Plan: Assessment: 200cc bilious emesis 08/16 PLAN: -Protonix 40mg IV daily -Compazine 5mg IV q6hr PRN Primary hypertension 01/20/2017 08/05/2018 A-fib 03/06/2017 HTN (hypertension) 03/06/2017 documented as of this encounter (statuses as of 07/07/2022) [facility] History of Past illness Narrative* Problem Noted Date Resolved Date Adenopathy 12/25/2020 03/25/2021 Nausea with vomiting 08/17/2020 08/20/2020 Last Assessment & Plan: Assessment: 200cc bilious emesis 08/16 PLAN: -Protonix 40mg IV daily -Compazine 5mg IV q6hr PRN Primary hypertension 01/20/2017 08/05/2018 A-fib 03/06/2017 HTN (hypertension) 03/06/2017 documented as of this encounter (statuses as of 07/08/2022) [facility] History of Past illness Narrative* Problem Noted Date Resolved Date Adenopathy 12/25/2020 03/25/2021 Nausea with vomiting 08/17/2020 08/20/2020 Last Assessment & Plan: Assessment: 200cc bilious emesis 08/16 PLAN: -Protonix 40mg IV daily -Compazine 5mg IV q6hr PRN Primary hypertension 01/20/2017 08/05/2018 A-fib 03/06/2017 HTN (hypertension) 03/06/2017 documented as of this encounter (statuses as of 07/11/2022) [facility] History of Past illness Narrative* Problem Noted Date Resolved Date Adenopathy 12/25/2020 03/25/2021 Nausea with vomiting 08/17/2020 08/20/2020 Last Assessment & Plan: Assessment: 200cc bilious emesis 08/16 PLAN: -Protonix 40mg IV daily -Compazine 5mg IV q6hr PRN Primary hypertension 01/20/2017 08/05/2018 A-fib 03/06/2017 HTN (hypertension) 03/06/2017 documented as of this encounter (statuses as of 07/22/2022) [facility] History of Past illness Narrative* Problem Noted Date Resolved Date Adenopathy 12/25/2020 03/25/2021 Nausea with vomiting 08/17/2020 08/20/2020 Last Assessment & Plan: Assessment: 200cc bilious emesis 08/16 PLAN: -Protonix 40mg IV daily -Compazine 5mg IV q6hr PRN Primary hypertension 01/20/2017 08/05/2018 A-fib 03/06/2017 HTN (hypertension) 03/06/2017 documented as of this encounter (statuses as of 07/28/2022) [facility] History of Past illness Narrative* Problem Noted Date Resolved Date Adenopathy 12/25/2020 03/25/2021 Nausea with vomiting 08/17/2020 08/20/2020 Last Assessment & Plan: Assessment: 200cc bilious emesis 08/16 PLAN: -Protonix 40mg IV daily -Compazine 5mg IV q6hr PRN Primary hypertension 01/20/2017 08/05/2018 A-fib 03/06/2017 HTN (hypertension) 03/06/2017 documented as of this encounter (statuses as of 07/30/2022) [facility] History of Past illness Narrative* Problem Noted Date Resolved Date Adenopathy 12/25/2020 03/25/2021 Nausea with vomiting 08/17/2020 08/20/2020 Last Assessment & Plan: Assessment: 200cc bilious emesis 08/16 PLAN: -Protonix 40mg IV daily -Compazine 5mg IV q6hr PRN Primary hypertension 01/20/2017 08/05/2018 A-fib 03/06/2017 HTN (hypertension) 03/06/2017 documented as of this encounter (statuses as of 08/05/2022) [facility] History of Past illness Narrative* Problem Noted Date Resolved Date Adenopathy 12/25/2020 03/25/2021 Nausea with vomiting 08/17/2020 08/20/2020 Last Assessment & Plan: Assessment: 200cc bilious emesis 08/16 PLAN: -Protonix 40mg IV daily -Compazine 5mg IV q6hr PRN Primary hypertension 01/20/2017 08/05/2018 A-fib 03/06/2017 HTN (hypertension) 03/06/2017 documented as of this encounter (statuses as of 08/07/2022) [facility] History of Past illness Narrative* Problem Noted Date Resolved Date Adenopathy 12/25/2020 03/25/2021 Nausea with vomiting 08/17/2020 08/20/2020 Last Assessment & Plan: Assessment: 200cc bilious emesis 08/16 PLAN: -Protonix 40mg IV daily -Compazine 5mg IV q6hr PRN Primary hypertension 01/20/2017 08/05/2018 A-fib 03/06/2017 HTN (hypertension) 03/06/2017 documented as of this encounter (statuses as of 08/08/2022) [facility] History of Past illness Narrative* Problem Noted Date Resolved Date Adenopathy 12/25/2020 03/25/2021 Nausea with vomiting 08/17/2020 08/20/2020 Last Assessment & Plan: Assessment: 200cc bilious emesis 08/16 PLAN: -Protonix 40mg IV daily -Compazine 5mg IV q6hr PRN Primary hypertension 01/20/2017 08/05/2018 A-fib 03/06/2017 HTN (hypertension) 03/06/2017 documented as of this encounter (statuses as of 08/11/2022) [facility] History of Past illness Narrative* Problem Noted Date Resolved Date Adenopathy 12/25/2020 03/25/2021 Nausea with vomiting 08/17/2020 08/20/2020 Last Assessment & Plan: Assessment: 200cc bilious emesis 08/16 PLAN: -Protonix 40mg IV daily -Compazine 5mg IV q6hr PRN Primary hypertension 01/20/2017 08/05/2018 A-fib 03/06/2017 HTN (hypertension) 03/06/2017 documented as of this encounter (statuses as of 08/12/2022) [facility] History of Past illness Narrative* Problem Noted Date Resolved Date Adenopathy 12/25/2020 03/25/2021 Nausea with vomiting 08/17/2020 08/20/2020 Last Assessment & Plan: Assessment: 200cc bilious emesis 08/16 PLAN: -Protonix 40mg IV daily -Compazine 5mg IV q6hr PRN Primary hypertension 01/20/2017 08/05/2018 A-fib 03/06/2017 HTN (hypertension) 03/06/2017 documented as of this encounter (statuses as of 08/12/2022) [facility] History of Past illness Narrative* Problem Noted Date Resolved Date Adenopathy 12/25/2020 03/25/2021 Nausea with vomiting 08/17/2020 08/20/2020 Last Assessment & Plan: Assessment: 200cc bilious emesis 08/16 PLAN: -Protonix 40mg IV daily -Compazine 5mg IV q6hr PRN Primary hypertension 01/20/2017 08/05/2018 A-fib 03/06/2017 HTN (hypertension) 03/06/2017 documented as of this encounter (statuses as of 08/15/2022) [facility] History of Past illness Narrative* Problem Noted Date Resolved Date Adenopathy 12/25/2020 03/25/2021 Nausea with vomiting 08/17/2020 08/20/2020 Last Assessment & Plan: Assessment: 200cc bilious emesis 08/16 PLAN: -Protonix 40mg IV daily -Compazine 5mg IV q6hr PRN Primary hypertension 01/20/2017 08/05/2018 A-fib 03/06/2017 HTN (hypertension) 03/06/2017 documented as of this encounter (statuses as of 08/18/2022) [facility] History of Past illness Narrative* Problem Noted Date Resolved Date Adenopathy 12/25/2020 03/25/2021 Nausea with vomiting 08/17/2020 08/20/2020 Last Assessment & Plan: Assessment: 200cc bilious emesis 08/16 PLAN: -Protonix 40mg IV daily -Compazine 5mg IV q6hr PRN Primary hypertension 01/20/2017 08/05/2018 A-fib 03/06/2017 HTN (hypertension) 03/06/2017 documented as of this encounter (statuses as of 08/20/2022) [facility] History of Past illness Narrative* Problem Noted Date Resolved Date Adenopathy 12/25/2020 03/25/2021 Nausea with vomiting 08/17/2020 08/20/2020 Last Assessment & Plan: Assessment: 200cc bilious emesis 08/16 PLAN: -Protonix 40mg IV daily -Compazine 5mg IV q6hr PRN Primary hypertension 01/20/2017 08/05/2018 A-fib 03/06/2017 HTN (hypertension) 03/06/2017 documented as of this encounter (statuses as of 08/20/2022) [facility] History of Past illness Narrative* Problem Noted Date Resolved Date Adenopathy 12/25/2020 03/25/2021 Nausea with vomiting 08/17/2020 08/20/2020 Last Assessment & Plan: Assessment: 200cc bilious emesis 08/16 PLAN: -Protonix 40mg IV daily -Compazine 5mg IV q6hr PRN Primary hypertension 01/20/2017 08/05/2018 A-fib 03/06/2017 HTN (hypertension) 03/06/2017 documented as of this encounter (statuses as of 08/21/2022) [facility] History of Past illness Narrative* Problem Noted Date Resolved Date Adenopathy 12/25/2020 03/25/2021 Nausea with vomiting 08/17/2020 08/20/2020 Last Assessment & Plan: Assessment: 200cc bilious emesis 08/16 PLAN: -Protonix 40mg IV daily -Compazine 5mg IV q6hr PRN Primary hypertension 01/20/2017 08/05/2018 A-fib 03/06/2017 HTN (hypertension) 03/06/2017 documented as of this encounter (statuses as of 09/05/2022) [facility] History of Past illness Narrative* Problem Noted Date Resolved Date Adenopathy 12/25/2020 03/25/2021 Nausea with vomiting 08/17/2020 08/20/2020 Last Assessment & Plan: Assessment: 200cc bilious emesis 08/16 PLAN: -Protonix 40mg IV daily -Compazine 5mg IV q6hr PRN Primary hypertension 01/20/2017 08/05/2018 A-fib 03/06/2017 HTN (hypertension) 03/06/2017 documented as of this encounter (statuses as of 09/11/2022) [facility] History of Past illness Narrative* Problem Noted Date Resolved Date Adenopathy 12/25/2020 03/25/2021 Nausea with vomiting 08/17/2020 08/20/2020 Last Assessment & Plan: Assessment: 200cc bilious emesis 08/16 PLAN: -Protonix 40mg IV daily -Compazine 5mg IV q6hr PRN Primary hypertension 01/20/2017 08/05/2018 A-fib 03/06/2017 HTN (hypertension) 03/06/2017 documented as of this encounter (statuses as of 09/23/2022) [facility] History of Past illness Narrative* Problem Noted Date Resolved Date Adenopathy 12/25/2020 03/25/2021 Nausea with vomiting 08/17/2020 08/20/2020 Last Assessment & Plan: Assessment: 200cc bilious emesis 08/16 PLAN: -Protonix 40mg IV daily -Compazine 5mg IV q6hr PRN Primary hypertension 01/20/2017 08/05/2018 A-fib 03/06/2017 HTN (hypertension) 03/06/2017 documented as of this encounter (statuses as of 09/26/2022) [facility] History of Past illness Narrative* Problem Noted Date Resolved Date Adenopathy 12/25/2020 03/25/2021 Nausea with vomiting 08/17/2020 08/20/2020 Last Assessment & Plan: Assessment: 200cc bilious emesis 08/16 PLAN: -Protonix 40mg IV daily -Compazine 5mg IV q6hr PRN Primary hypertension 01/20/2017 08/05/2018 A-fib 03/06/2017 HTN (hypertension) 03/06/2017 documented as of this encounter (statuses as of 10/01/2022) [facility] History of Past illness Narrative* Problem Noted Date Resolved Date Adenopathy 12/25/2020 03/25/2021 Nausea with vomiting 08/17/2020 08/20/2020 Last Assessment & Plan: Assessment: 200cc bilious emesis 08/16 PLAN: -Protonix 40mg IV daily -Compazine 5mg IV q6hr PRN Primary hypertension 01/20/2017 08/05/2018 A-fib 03/06/2017 HTN (hypertension) 03/06/2017 documented as of this encounter (statuses as of 10/02/2022) [facility] History of Past illness Narrative* Problem Noted Date Resolved Date Adenopathy 12/25/2020 03/25/2021 Nausea with vomiting 08/17/2020 08/20/2020 Last Assessment & Plan: Assessment: 200cc bilious emesis 08/16 PLAN: -Protonix 40mg IV daily -Compazine 5mg IV q6hr PRN Primary hypertension 01/20/2017 08/05/2018 A-fib 03/06/2017 HTN (hypertension) 03/06/2017 documented as of this encounter (statuses as of 10/02/2022) [facility] History of Past illness Narrative* Problem Noted Date Resolved Date Adenopathy 12/25/2020 03/25/2021 Nausea with vomiting 08/17/2020 08/20/2020 Last Assessment & Plan: Assessment: 200cc bilious emesis 08/16 PLAN: -Protonix 40mg IV daily -Compazine 5mg IV q6hr PRN Primary hypertension 01/20/2017 08/05/2018 A-fib 03/06/2017 HTN (hypertension) 03/06/2017 documented as of this encounter (statuses as of 10/04/2022) [facility] History of Past illness Narrative* Problem Noted Date Resolved Date Adenopathy 12/25/2020 03/25/2021 Nausea with vomiting 08/17/2020 08/20/2020 Last Assessment & Plan: Assessment: 200cc bilious emesis 08/16 PLAN: -Protonix 40mg IV daily -Compazine 5mg IV q6hr PRN Primary hypertension 01/20/2017 08/05/2018 A-fib 03/06/2017 HTN (hypertension) 03/06/2017 documented as of this encounter (statuses as of 10/07/2022) [facility] History of Past illness Narrative* Problem Noted Date Resolved Date Adenopathy 12/25/2020 03/25/2021 Nausea with vomiting 08/17/2020 08/20/2020 Last Assessment & Plan: Assessment: 200cc bilious emesis 08/16 PLAN: -Protonix 40mg IV daily -Compazine 5mg IV q6hr PRN Primary hypertension 01/20/2017 08/05/2018 A-fib 03/06/2017 HTN (hypertension) 03/06/2017 documented as of this encounter (statuses as of 10/08/2022) [facility] History of Past illness Narrative* Problem Noted Date Resolved Date Adenopathy 12/25/2020 03/25/2021 Nausea with vomiting 08/17/2020 08/20/2020 Last Assessment & Plan: Assessment: 200cc bilious emesis 08/16 PLAN: -Protonix 40mg IV daily -Compazine 5mg IV q6hr PRN Primary hypertension 01/20/2017 08/05/2018 A-fib 03/06/2017 HTN (hypertension) 03/06/2017 documented as of this encounter (statuses as of 10/14/2022) [facility] History of Past illness Narrative* Problem Noted Date Resolved Date Adenopathy 12/25/2020 03/25/2021 Nausea with vomiting 08/17/2020 08/20/2020 Last Assessment & Plan: Assessment: 200cc bilious emesis 08/16 PLAN: -Protonix 40mg IV daily -Compazine 5mg IV q6hr PRN Primary hypertension 01/20/2017 08/05/2018 A-fib 03/06/2017 HTN (hypertension) 03/06/2017 documented as of this encounter (statuses as of 10/15/2022) [facility] History of Past illness Narrative* Problem Noted Date Resolved Date Adenopathy 12/25/2020 03/25/2021 Nausea with vomiting 08/17/2020 08/20/2020 Last Assessment & Plan: Assessment: 200cc bilious emesis 08/16 PLAN: -Protonix 40mg IV daily -Compazine 5mg IV q6hr PRN Primary hypertension 01/20/2017 08/05/2018 A-fib 03/06/2017 HTN (hypertension) 03/06/2017 documented as of this encounter (statuses as of 10/16/2022) [facility] History of Past illness Narrative* Problem Noted Date Resolved Date Adenopathy 12/25/2020 03/25/2021 Nausea with vomiting 08/17/2020 08/20/2020 Last Assessment & Plan: Assessment: 200cc bilious emesis 08/16 PLAN: -Protonix 40mg IV daily -Compazine 5mg IV q6hr PRN Primary hypertension 01/20/2017 08/05/2018 A-fib 03/06/2017 HTN (hypertension) 03/06/2017 documented as of this encounter (statuses as of 10/16/2022) [facility] History of Past illness Narrative* Problem Noted Date Resolved Date Adenopathy 12/25/2020 03/25/2021 Nausea with vomiting 08/17/2020 08/20/2020 Last Assessment & Plan: Assessment: 200cc bilious emesis 08/16 PLAN: -Protonix 40mg IV daily -Compazine 5mg IV q6hr PRN Primary hypertension 01/20/2017 08/05/2018 A-fib 03/06/2017 HTN (hypertension) 03/06/2017 documented as of this encounter (statuses as of 10/16/2022) [facility] History of Past illness Narrative* Problem Noted Date Resolved Date Adenopathy 12/25/2020 03/25/2021 Nausea with vomiting 08/17/2020 08/20/2020 Last Assessment & Plan: Assessment: 200cc bilious emesis 08/16 PLAN: -Protonix 40mg IV daily -Compazine 5mg IV q6hr PRN Primary hypertension 01/20/2017 08/05/2018 A-fib 03/06/2017 HTN (hypertension) 03/06/2017 documented as of this encounter (statuses as of 11/19/2022) [facility] History of Past illness Narrative* Problem Noted Date Resolved Date Adenopathy 12/25/2020 03/25/2021 Nausea with vomiting 08/17/2020 08/20/2020 Last Assessment & Plan: Assessment: 200cc bilious emesis 08/16 PLAN: -Protonix 40mg IV daily -Compazine 5mg IV q6hr PRN Primary hypertension 01/20/2017 08/05/2018 A-fib 03/06/2017 HTN (hypertension) 03/06/2017 documented as of this encounter (statuses as of 12/03/2022) [facility] History of Past illness Narrative* Problem Noted Date Resolved Date Adenopathy 12/25/2020 03/25/2021 Nausea with vomiting 08/17/2020 08/20/2020 Last Assessment & Plan: Assessment: 200cc bilious emesis 08/16 PLAN: -Protonix 40mg IV daily -Compazine 5mg IV q6hr PRN Primary hypertension 01/20/2017 08/05/2018 A-fib 03/06/2017 HTN (hypertension) 03/06/2017 documented as of this encounter (statuses as of 12/11/2022) [facility] History of Past illness Narrative* Problem Noted Date Resolved Date Adenopathy 12/25/2020 03/25/2021 Nausea with vomiting 08/17/2020 08/20/2020 Last Assessment & Plan: Assessment: 200cc bilious emesis 08/16 PLAN: -Protonix 40mg IV daily -Compazine 5mg IV q6hr PRN Primary hypertension 01/20/2017 08/05/2018 A-fib 03/06/2017 HTN (hypertension) 03/06/2017 documented as of this encounter (statuses as of 12/12/2022) [facility] History of Past illness Narrative* Problem Noted Date Diagnosed Date Resolved Date Adenopathy 12/25/2020 03/25/2021 Nausea with vomiting 08/17/2020 021 Last Assessment & Plan: Assessment: 200cc bilious emesis 08/16 PLAN: -Protonix 40mg IV daily -Compazine 5mg IV q6hr PRN Primary hypertension 01/20/2017 019 A-fib 03/06/2017 HTN (hypertension) 7 documented as of this encounter (statuses as of 01/08/2023) [facility] History of Past illness Narrative* Problem Noted Date Diagnosed Date Resolved Date Adenopathy 12/25/2020 03/25/2021 Nausea with vomiting 08/17/2020 021 Last Assessment & Plan: Assessment: 200cc bilious emesis 08/16 PLAN: -Protonix 40mg IV daily -Compazine 5mg IV q6hr PRN Primary hypertension 01/20/2017 019 A-fib 03/06/2017 HTN (hypertension) 7 documented as of this encounter (statuses as of 02/01/2023) [facility] History of Past illness Narrative* Problem Noted Date Diagnosed Date Resolved Date Adenopathy 12/25/2020 03/25/2021 Nausea with vomiting 08/17/2020 021 Last Assessment & Plan: Assessment: 200cc bilious emesis 08/16 PLAN: -Protonix 40mg IV daily -Compazine 5mg IV q6hr PRN Primary hypertension 01/20/2017 019 A-fib 03/06/2017 HTN (hypertension) 7 documented as of this encounter (statuses as of 02/03/2023) [facility] History of Past illness Narrative* Problem Noted Date Diagnosed Date Resolved Date Adenopathy 12/25/2020 03/25/2021 Nausea with vomiting 08/17/2020 021 Last Assessment & Plan: Assessment: 200cc bilious emesis 08/16 PLAN: -Protonix 40mg IV daily -Compazine 5mg IV q6hr PRN Primary hypertension 01/20/2017 019 A-fib 03/06/2017 HTN (hypertension) 7 documented as of this encounter (statuses as of 02/13/2023) [facility] History of Past illness Narrative* Problem Noted Date Diagnosed Date Resolved Date Adenopathy 12/25/2020 03/25/2021 Nausea with vomiting 08/17/2020 021 Last Assessment & Plan: Assessment: 200cc bilious emesis 08/16 PLAN: -Protonix 40mg IV daily -Compazine 5mg IV q6hr PRN Primary hypertension 01/20/2017 019 A-fib 03/06/2017 HTN (hypertension) 7 documented as of this encounter (statuses as of 02/16/2023) [facility] History of Past illness Narrative* Problem Noted Date Diagnosed Date Resolved Date Adenopathy 12/25/2020 03/25/2021 Nausea with vomiting 08/17/2020 021 Last Assessment & Plan: Assessment: 200cc bilious emesis 08/16 PLAN: -Protonix 40mg IV daily -Compazine 5mg IV q6hr PRN Primary hypertension 01/20/2017 019 A-fib 03/06/2017 HTN (hypertension) 7 documented as of this encounter (statuses as of 02/25/2023) [facility] History of Past illness Narrative* Problem Noted Date Diagnosed Date Resolved Date Adenopathy 12/25/2020 03/25/2021 Nausea with vomiting 08/17/2020 021 Last Assessment & Plan: Assessment: 200cc bilious emesis 08/16 PLAN: -Protonix 40mg IV daily -Compazine 5mg IV q6hr PRN Primary hypertension 01/20/2017 019 A-fib 03/06/2017 HTN (hypertension) 7 documented as of this encounter (statuses as of 02/27/2023) [facility] History of Past illness Narrative* Problem Noted Date Diagnosed Date Resolved Date Adenopathy 12/25/2020 03/25/2021 Nausea with vomiting 08/17/2020 021 Last Assessment & Plan: Assessment: 200cc bilious emesis 08/16 PLAN: -Protonix 40mg IV daily -Compazine 5mg IV q6hr PRN Primary hypertension 01/20/2017 019 A-fib 03/06/2017 HTN (hypertension) 7 documented as of this encounter (statuses as of 03/12/2023) [facility] History of Past illness Narrative* Problem Noted Date Diagnosed Date Resolved Date Adenopathy 12/25/2020 03/25/2021 Nausea with vomiting 08/17/2020 021 Last Assessment & Plan: Assessment: 200cc bilious emesis 08/16 PLAN: -Protonix 40mg IV daily -Compazine 5mg IV q6hr PRN Primary hypertension 01/20/2017 019 A-fib 03/06/2017 HTN (hypertension) 7 documented as of this encounter (statuses as of 03/16/2023) [facility] History of Past illness Narrative* Problem Noted Date Diagnosed Date Resolved Date Adenopathy 12/25/2020 03/25/2021 Nausea with vomiting 08/17/2020 021 Last Assessment & Plan: Assessment: 200cc bilious emesis 08/16 PLAN: -Protonix 40mg IV daily -Compazine 5mg IV q6hr PRN Primary hypertension 01/20/2017 019 A-fib 03/06/2017 HTN (hypertension) 7 documented as of this encounter (statuses as of 03/19/2023) [facility] History of Past illness Narrative* Problem Noted Date Diagnosed Date Resolved Date Adenopathy 12/25/2020 03/25/2021 Nausea with vomiting 08/17/2020 021 Last Assessment & Plan: Assessment: 200cc bilious emesis 08/16 PLAN: -Protonix 40mg IV daily -Compazine 5mg IV q6hr PRN Primary hypertension 01/20/2017 019 A-fib 03/06/2017 HTN (hypertension) 7 documented as of this encounter (statuses as of 03/31/2023) [facility] History of Past illness Narrative* Problem Noted Date Diagnosed Date Resolved Date Adenopathy 12/25/2020 03/25/2021 Nausea with vomiting 08/17/2020 021 Last Assessment & Plan: Assessment: 200cc bilious emesis 08/16 PLAN: -Protonix 40mg IV daily -Compazine 5mg IV q6hr PRN Primary hypertension 01/20/2017 019 A-fib 03/06/2017 HTN (hypertension) 7 documented as of this encounter (statuses as of 04/02/2023) [facility] History of Past illness Narrative* Problem Noted Date Diagnosed Date Resolved Date Adenopathy 12/25/2020 03/25/2021 Nausea with vomiting 08/17/2020 021 Last Assessment & Plan: Assessment: 200cc bilious emesis 08/16 PLAN: -Protonix 40mg IV daily -Compazine 5mg IV q6hr PRN Primary hypertension 01/20/2017 019 A-fib 03/06/2017 HTN (hypertension) 7 documented as of this encounter (statuses as of 04/07/2023) [facility] History of Past illness Narrative* Problem Noted Date Diagnosed Date Resolved Date Adenopathy 12/25/2020 03/25/2021 Nausea with vomiting 08/17/2020 021 Last Assessment & Plan: Assessment: 200cc bilious emesis 08/16 PLAN: -Protonix 40mg IV daily -Compazine 5mg IV q6hr PRN Primary hypertension 01/20/2017 019 A-fib 03/06/2017 HTN (hypertension) 7 documented as of this encounter (statuses as of 04/07/2023) [facility] History of Past illness Narrative* Problem Noted Date Diagnosed Date Resolved Date Adenopathy 12/25/2020 03/25/2021 Nausea with vomiting 08/17/2020 021 Last Assessment & Plan: Assessment: 200cc bilious emesis 08/16 PLAN: -Protonix 40mg IV daily -Compazine 5mg IV q6hr PRN Primary hypertension 01/20/2017 019 A-fib 03/06/2017 HTN (hypertension) 7 documented as of this encounter (statuses as of 04/07/2023) [facility] History of Past illness Narrative* Problem Noted Date Diagnosed Date Resolved Date Adenopathy 12/25/2020 03/25/2021 Nausea with vomiting 08/17/2020 021 Last Assessment & Plan: Assessment: 200cc bilious emesis 08/16 PLAN: -Protonix 40mg IV daily -Compazine 5mg IV q6hr PRN Primary hypertension 01/20/2017 019 A-fib 03/06/2017 HTN (hypertension) 7 documented as of this encounter (statuses as of 04/14/2023) [facility]21 History of Past illness Narrative* Problem Noted Date Diagnosed Date Resolved Date Adenopathy 12/25/2020 03/25/2021 Nausea with vomiting 08/17/2020 021 Last Assessment & Plan: Assessment: 200cc bilious emesis 08/16 PLAN: -Protonix 40mg IV daily -Compazine 5mg IV q6hr PRN Primary hypertension 01/20/2017 019 A-fib 03/06/2017 HTN (hypertension) 7 documented as of this encounter (statuses as of 04/14/2023) [facility]21 History of Past illness Narrative* Problem Noted Date Diagnosed Date Resolved Date Adenopathy 12/25/2020 03/25/2021 Nausea with vomiting 08/17/2020 021 Last Assessment & Plan: Assessment: 200cc bilious emesis 08/16 PLAN: -Protonix 40mg IV daily -Compazine 5mg IV q6hr PRN Primary hypertension 01/20/2017 019 A-fib 03/06/2017 HTN (hypertension) 7 documented as of this encounter (statuses as of 04/14/2023) [facility] History of Past illness Narrative* Problem Noted Date Diagnosed Date Resolved Date Adenopathy 12/25/2020 03/25/2021 Nausea with vomiting 08/17/2020 021 Last Assessment & Plan: Assessment: 200cc bilious emesis 08/16 PLAN: -Protonix 40mg IV daily -Compazine 5mg IV q6hr PRN Primary hypertension 01/20/2017 019 A-fib 03/06/2017 HTN (hypertension) 7 documented as of this encounter (statuses as of 04/15/2023) [facility] History of Past illness Narrative* Problem Noted Date Diagnosed Date Resolved Date Adenopathy 12/25/2020 03/25/2021 Nausea with vomiting 08/17/2020 021 Last Assessment & Plan: Assessment: 200cc bilious emesis 08/16 PLAN: -Protonix 40mg IV daily -Compazine 5mg IV q6hr PRN Primary hypertension 01/20/2017 019 A-fib 03/06/2017 HTN (hypertension) 7 documented as of this encounter (statuses as of 04/16/2023) [facility] History of Past illness Narrative* Problem Noted Date Diagnosed Date Resolved Date Adenopathy 12/25/2020 03/25/2021 Nausea with vomiting 08/17/2020 021 Last Assessment & Plan: Assessment: 200cc bilious emesis 08/16 PLAN: -Protonix 40mg IV daily -Compazine 5mg IV q6hr PRN Primary hypertension 01/20/2017 019 A-fib 03/06/2017 HTN (hypertension) 7 documented as of this encounter (statuses as of 04/17/2023) [facility] History of Past illness Narrative* Problem Noted Date Diagnosed Date Resolved Date Adenopathy 12/25/2020 03/25/2021 Nausea with vomiting 08/17/2020 021 Last Assessment & Plan: Assessment: 200cc bilious emesis 08/16 PLAN: -Protonix 40mg IV daily -Compazine 5mg IV q6hr PRN Primary hypertension 01/20/2017 019 A-fib 03/06/2017 HTN (hypertension) 7 documented as of this encounter (statuses as of 04/23/2023) [facility] History of Past illness Narrative* Problem Noted Date Diagnosed Date Resolved Date Adenopathy 12/25/2020 03/25/2021 Nausea with vomiting 08/17/2020 021 Last Assessment & Plan: Assessment: 200cc bilious emesis 08/16 PLAN: -Protonix 40mg IV daily -Compazine 5mg IV q6hr PRN Primary hypertension 01/20/2017 019 A-fib 03/06/2017 HTN (hypertension) 7 documented as of this encounter (statuses as of 04/23/2023) [facility] History of Past illness Narrative* Problem Noted Date Diagnosed Date Resolved Date Adenopathy 12/25/2020 03/25/2021 Nausea with vomiting 08/17/2020 021 Last Assessment & Plan: Assessment: 200cc bilious emesis 08/16 PLAN: -Protonix 40mg IV daily -Compazine 5mg IV q6hr PRN Primary hypertension 01/20/2017 019 A-fib 03/06/2017 HTN (hypertension) 7 documented as of this encounter (statuses as of 04/27/2023) [facility] History of Past illness Narrative* Problem Noted Date Diagnosed Date Resolved Date Adenopathy 12/25/2020 03/25/2021 Nausea with vomiting 08/17/2020 021 Last Assessment & Plan: Assessment: 200cc bilious emesis 08/16 PLAN: -Protonix 40mg IV daily -Compazine 5mg IV q6hr PRN Primary hypertension 01/20/2017 019 A-fib 03/06/2017 HTN (hypertension) 7 documented as of this encounter (statuses as of 04/27/2023) [facility] History of Past illness Narrative* Problem Noted Date Diagnosed Date Resolved Date Adenopathy 12/25/2020 03/25/2021 Nausea with vomiting 08/17/2020 021 Last Assessment & Plan: Assessment: 200cc bilious emesis 08/16 PLAN: -Protonix 40mg IV daily -Compazine 5mg IV q6hr PRN Primary hypertension 01/20/2017 019 A-fib 03/06/2017 HTN (hypertension) 7 documented as of this encounter (statuses as of 04/27/2023) [facility] History of Past illness Narrative* Problem Noted Date Diagnosed Date Resolved Date Adenopathy 12/25/2020 03/25/2021 Nausea with vomiting 08/17/2020 021 Last Assessment & Plan: Assessment: 200cc bilious emesis 08/16 PLAN: -Protonix 40mg IV daily -Compazine 5mg IV q6hr PRN Primary hypertension 01/20/2017 019 A-fib 03/06/2017 HTN (hypertension) 7 documented as of this encounter (statuses as of 04/27/2023) [facility] History of Past illness Narrative* Problem Noted Date Diagnosed Date Resolved Date Adenopathy 12/25/2020 03/25/2021 Nausea with vomiting 08/17/2020 021 Last Assessment & Plan: Assessment: 200cc bilious emesis 08/16 PLAN: -Protonix 40mg IV daily -Compazine 5mg IV q6hr PRN Primary hypertension 01/20/2017 019 A-fib 03/06/2017 HTN (hypertension) 7 documented as of this encounter (statuses as of 04/27/2023) [facility] History of Past illness Narrative* Problem Noted Date Diagnosed Date Resolved Date Adenopathy 12/25/2020 03/25/2021 Nausea with vomiting 08/17/2020 021 Last Assessment & Plan: Assessment: 200cc bilious emesis 08/16 PLAN: -Protonix 40mg IV daily -Compazine 5mg IV q6hr PRN Primary hypertension 01/20/2017 019 A-fib 03/06/2017 HTN (hypertension) 7 documented as of this encounter (statuses as of 04/27/2023) [facility] History of Past illness Narrative* Problem Noted Date Diagnosed Date Resolved Date Adenopathy 12/25/2020 03/25/2021 Nausea with vomiting 08/17/2020 021 Last Assessment & Plan: Assessment: 200cc bilious emesis 08/16 PLAN: -Protonix 40mg IV daily -Compazine 5mg IV q6hr PRN Primary hypertension 01/20/2017 019 A-fib 03/06/2017 HTN (hypertension) 7 documented as of this encounter (statuses as of 04/28/2023) [facility] History of Past illness Narrative* Problem Noted Date Diagnosed Date Resolved Date Adenopathy 12/25/2020 03/25/2021 Nausea with vomiting 08/17/2020 021 Last Assessment & Plan: Assessment: 200cc bilious emesis 08/16 PLAN: -Protonix 40mg IV daily -Compazine 5mg IV q6hr PRN Primary hypertension 01/20/2017 019 A-fib 03/06/2017 HTN (hypertension) 7 documented as of this encounter (statuses as of 04/30/2023) [facility] History of Past illness Narrative* Problem Noted Date Diagnosed Date Resolved Date Adenopathy 12/25/2020 03/25/2021 Nausea with vomiting 08/17/2020 021 Last Assessment & Plan: Assessment: 200cc bilious emesis 08/16 PLAN: -Protonix 40mg IV daily -Compazine 5mg IV q6hr PRN Primary hypertension 01/20/2017 019 A-fib 03/06/2017 HTN (hypertension) 7 documented as of this encounter (statuses as of 05/05/2023) [facility] History of Past illness Narrative* Problem Noted Date Diagnosed Date Resolved Date Adenopathy 12/25/2020 03/25/2021 Nausea with vomiting 08/17/2020 021 Last Assessment & Plan: Assessment: 200cc bilious emesis 08/16 PLAN: -Protonix 40mg IV daily -Compazine 5mg IV q6hr PRN Primary hypertension 01/20/2017 019 A-fib 03/06/2017 HTN (hypertension) 7 documented as of this encounter (statuses as of 05/05/2023) [facility] History of Past illness Narrative* Problem Noted Date Diagnosed Date Resolved Date Adenopathy 12/25/2020 03/25/2021 Nausea with vomiting 08/17/2020 021 Last Assessment & Plan: Assessment: 200cc bilious emesis 08/16 PLAN: -Protonix 40mg IV daily -Compazine 5mg IV q6hr PRN Primary hypertension 01/20/2017 019 A-fib 03/06/2017 HTN (hypertension) 7 documented as of this encounter (statuses as of 05/06/2023) [facility] History of Past illness Narrative* Problem Noted Date Diagnosed Date Resolved Date Adenopathy 12/25/2020 03/25/2021 Nausea with vomiting 08/17/2020 021 Last Assessment & Plan: Assessment: 200cc bilious emesis 08/16 PLAN: -Protonix 40mg IV daily -Compazine 5mg IV q6hr PRN Primary hypertension 01/20/2017 019 A-fib 03/06/2017 HTN (hypertension) 7 documented as of this encounter (statuses as of 05/11/2023) [facility] History of Past illness Narrative* Problem Noted Date Diagnosed Date Resolved Date Adenopathy 12/25/2020 03/25/2021 Nausea with vomiting 08/17/2020 021 Last Assessment & Plan: Assessment: 200cc bilious emesis 08/16 PLAN: -Protonix 40mg IV daily -Compazine 5mg IV q6hr PRN Primary hypertension 01/20/2017 019 A-fib 03/06/2017 HTN (hypertension) 7 documented as of this encounter (statuses as of 05/13/2023) [facility] History of Past illness Narrative* Problem Noted Date Diagnosed Date Resolved Date Adenopathy 12/25/2020 03/25/2021 Nausea with vomiting 08/17/2020 021 Last Assessment & Plan: Assessment: 200cc bilious emesis 08/16 PLAN: -Protonix 40mg IV daily -Compazine 5mg IV q6hr PRN Primary hypertension 01/20/2017 019 A-fib 03/06/2017 HTN (hypertension) 7 documented as of this encounter (statuses as of 05/26/2023) [facility] History of Past illness Narrative* Problem Noted Date Diagnosed Date Resolved Date Adenopathy 12/25/2020 03/25/2021 Nausea with vomiting 08/17/2020 021 Last Assessment & Plan: Assessment: 200cc bilious emesis 08/16 PLAN: -Protonix 40mg IV daily -Compazine 5mg IV q6hr PRN Primary hypertension 01/20/2017 019 A-fib 03/06/2017 HTN (hypertension) 7 documented as of this encounter (statuses as of 05/26/2023) [facility] History of Past illness Narrative* Problem Noted Date Diagnosed Date Resolved Date Adenopathy 12/25/2020 03/25/2021 Nausea with vomiting 08/17/2020 021 Last Assessment & Plan: Assessment: 200cc bilious emesis 08/16 PLAN: -Protonix 40mg IV daily -Compazine 5mg IV q6hr PRN Primary hypertension 01/20/2017 019 A-fib 03/06/2017 HTN (hypertension) 7 documented as of this encounter (statuses as of 05/27/2023) [facility] History of Past illness Narrative* Problem Noted Date Diagnosed Date Resolved Date Adenopathy 12/25/2020 03/25/2021 Nausea with vomiting 08/17/2020 Last Assessment & Plan: Assessment: 200cc bilious emesis 08/16 PLAN: -Protonix 40mg IV daily -Compazine 5mg IV q6hr PRN Primary hypertension 01/20/2017 019 A-fib 03/06/2017 HTN (hypertension) 7 documented as of this encounter (statuses as of 05/28/2023) [facility] History of Past illness Narrative* Problem Noted Date Diagnosed Date Resolved Date Adenopathy 12/25/2020 03/25/2021 Nausea with vomiting 08/17/2020 021 Last Assessment & Plan: Assessment: 200cc bilious emesis 08/16 PLAN: -Protonix 40mg IV daily -Compazine 5mg IV q6hr PRN Primary hypertension 01/20/2017 019 A-fib 03/06/2017 HTN (hypertension) 7 documented as of this encounter (statuses as of 06/03/2023) [facility] History of Past illness Narrative* Problem Noted Date Diagnosed Date Resolved Date Adenopathy 12/25/2020 03/25/2021 Nausea with vomiting 08/17/2020 021 Last Assessment & Plan: Assessment: 200cc bilious emesis 08/16 PLAN: -Protonix 40mg IV daily -Compazine 5mg IV q6hr PRN Primary hypertension 01/20/2017 019 A-fib 03/06/2017 HTN (hypertension) 7 documented as of this encounter (statuses as of 06/05/2023) [facility] History of Past illness Narrative* Problem Noted Date Diagnosed Date Resolved Date Adenopathy 12/25/2020 03/25/2021 Nausea with vomiting 08/17/2020 021 Last Assessment & Plan: Assessment: 200cc bilious emesis 08/16 PLAN: -Protonix 40mg IV daily -Compazine 5mg IV q6hr PRN Primary hypertension 01/20/2017 019 A-fib 03/06/2017 HTN (hypertension) 7 documented as of this encounter (statuses as of 06/07/2023) [facility] History of Past illness Narrative* Problem Noted Date Diagnosed Date Resolved Date Adenopathy 12/25/2020 03/25/2021 Nausea with vomiting 08/17/2020 021 Last Assessment & Plan: Assessment: 200cc bilious emesis 08/16 PLAN: -Protonix 40mg IV daily -Compazine 5mg IV q6hr PRN Primary hypertension 01/20/2017 019 A-fib 03/06/2017 HTN (hypertension) 7 documented as of this encounter (statuses as of 06/23/2023) [facility] History of Past illness Narrative* Problem Noted Date Diagnosed Date Resolved Date Adenopathy 12/25/2020 03/25/2021 Nausea with vomiting 08/17/2020 021 Last Assessment & Plan: Assessment: 200cc bilious emesis 08/16 PLAN: -Protonix 40mg IV daily -Compazine 5mg IV q6hr PRN Primary hypertension 01/20/2017 019 A-fib 03/06/2017 HTN (hypertension) 7 documented as of this encounter (statuses as of 07/12/2023) [facility] Diagnosis 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, estrogen receptor positive (HCC)- Primary [facility] Diagnosis WALKER (dyspnea on exertion)- Primary [...] and respiratory abnormality 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) Atrial fibrillation, chronic (HCC) Atrial fibrillation Prediabetes Other abnormal glucose Hypertension, essential Unspecified essential hypertension CAMRYN (obstructive sleep apnea) Obstructive sleep apnea (adult) (pediatric) Hyperlipidemia, mixed Mixed hyperlipidemia Malignant neoplasm of overlapping sites of left breast in female, estrogen receptor positive (HCC) [facility] Age-related osteoporosis without current pathological fracture- Primary Senile osteoporosis [facility] Diagnosis Atrial fibrillation, persistent (HCC)- Primary Atrial fibrillation Chronic diastolic CHF (congestive heart failure) (HCC) Chronic diastolic heart failure [facility] Diagnosis Malignant neoplasm of lower-outer [...] Primary Senile osteoporosis [facility] Diagnosis IPMN (intraductal papillary mucinous [...] Unspecified essential hypertension [facility] Diagnosis IPMN (intraductal papillary mucinous neoplasm)- Primary Neoplasm of unspecified nature of digestive system [facility] Prediabetes- Primary Other abnormal glucose Essential hypertension Unspecified essential hypertension CAMRYN (obstructive sleep apnea) Obstructive sleep apnea (adult) (pediatric) Hyperlipidemia, mixed Mixed hyperlipidemia Atrial fibrillation, chronic (HCC) Atrial fibrillation 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) IPMN (intraductal [...] (HCC) Atrial fibrillation 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) CAMRYN (obstructive [...] diastolic heart failure 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) Pulmonary hypertension [...] apnea (adult) (pediatric) 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) Atrial fibrillation, [...] (HCC) Atrial fibrillation [facility] Diagnosis Fall in home, subsequent encounter- Primary Unsteady gait Abnormality of gait [facility] Diagnosis CAMRYN (obstructive sleep apnea)- Primary Obstructive sleep apnea (adult) (pediatric) Atrial fibrillation, chronic (HCC) Atrial fibrillation [facility] Diagnosis Age-related osteoporosis without current pathological fracture- Primary Senile osteoporosis [facility] Diagnosis Atrial fibrillation, chronic (HCC) Atrial fibrillation [facility] Diagnosis Age-related physical debility- Primary Senility without mention of psychosis [facility] Diagnosis 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, estrogen receptor positive (HCC)- Primary 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 [facility] Diagnosis Essential hypertension- Primary Unspecified essential hypertension Blood creatinine increased compared with prior measurement Stage 3b chronic kidney disease (HCC) IPMN (intraductal papillary mucinous neoplasm) Neoplasm of unspecified nature of digestive system Prediabetes Other abnormal glucose Chronic diastolic CHF (congestive heart failure) (HCC) Chronic diastolic heart failure 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) Hyperparathyroidism (HCC) Hyperparathyroidism, unspecified Malignant neoplasm of overlapping sites of left breast in female, estrogen receptor positive (HCC) CAMRYN (obstructive sleep apnea) Obstructive sleep apnea (adult) (pediatric) [facility] Diagnosis Stage 3b chronic kidney disease (HCC)- Primary [facility] Diagnosis Stage 3b chronic kidney disease (HCC)- Primary Essential hypertension Unspecified essential hypertension Chronic diastolic CHF (congestive heart failure) (HCC) Chronic diastolic heart failure [facility] Diagnosis ARTHUR (acute kidney injury) (HCC)- Primary Acute kidney failure, unspecified [facility] Diagnosis Chronic combined systolic (congestive) and diastolic (congestive) heart failure (HCC)- Primary [facility] Diagnosis Encounter for screening mammogram for malignant neoplasm of breast- Primary Other screening mammogram [facility] Diagnosis Malignant neoplasm of breast in female, estrogen receptor positive, unspecified laterality, unspecified site of breast (HCC)- Primary 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, estrogen receptor positive (HCC) Chest wall recurrence of breast cancer, 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 [facility] Diagnosis Chronic diastolic congestive heart failure (HCC)- Primary Chronic diastolic heart failure [facility] Diagnosis Nonrheumatic tricuspid valve regurgitation- Primary Tricuspid valve disorders, specified as nonrheumatic Encounter for preprocedural cardiovascular examination Pre-operative cardiovascular examination Hypertensive heart disease with heart failure (HCC) Unspecified hypertensive heart disease with heart failure Acute diastolic (congestive) heart failure (HCC) Chronic atrial fibrillation, unspecified (HCC) [facility] Diagnosis 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 Chronic combined systolic and diastolic heart failure Nonrheumatic tricuspid valve regurgitation Tricuspid valve disorders, specified as nonrheumatic [facility] Diagnosis Encounter for screening breast examination [...] specified as nonrheumatic [facility] Diagnosis Malignant neoplasm of lower-outer quadrant [...] specified as nonrheumatic [facility] Diagnosis Malignant neoplasm of overlapping sites of left breast in female, estrogen receptor positive (HCC)- Primary Mediastinal adenopathy Enlargement of lymph nodes 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 Nonrheumatic tricuspid valve regurgitation Tricuspid valve disorders, specified as nonrheumatic [facility] Diagnosis Stage 3b chronic kidney disease (HCC)- Primary Nonrheumatic tricuspid valve regurgitation Tricuspid valve disorders, specified as nonrheumatic [facility] Diagnosis Essential hypertension Unspecified essential hypertension Nonrheumatic tricuspid valve regurgitation Tricuspid valve disorders, specified as nonrheumatic [facility] Diagnosis Malignant neoplasm of overlapping sites of left breast in female, estrogen receptor positive (HCC)- Primary Mediastinal adenopathy Enlargement of lymph nodes 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 Nonrheumatic tricuspid valve regurgitation Tricuspid valve disorders, specified as nonrheumatic [facility] Diagnosis 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, 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 Lung nodules Other nonspecific abnormal finding of lung field Nonrheumatic tricuspid valve regurgitation Tricuspid valve disorders, specified as nonrheumatic [facility] Diagnosis Tricuspid valve insufficiency, unspecified etiology- Primary Nonrheumatic tricuspid valve regurgitation Tricuspid valve disorders, specified as nonrheumatic [facility] Diagnosis Severe tricuspid regurgitation- Primary Diseases of tricuspid valve Acute on chronic combined systolic and diastolic congestive heart failure (HCC) Acute on chronic combined systolic and diastolic heart failure Goals of care, counseling/discussion Other specified counseling Essential hypertension Unspecified essential hypertension Mixed hyperlipidemia [facility] Diagnosis Examination of participant in clinical trial- Primary documented in this encounter [facility] for referral (narrative)* Outpatient Procedure (Routine) - Pending Review Specialty Diagnoses / Procedures Referred By Eduardo westbrook [facility] Diagnoses WALKER (dyspnea on exertion) Procedures ECG COMPLETE ECG ROUTINE ECG W/LEAST 12 LDS W/I&R Tala Negron MD [id number] [place] [address] [facility] [place] [address] [place] [id number] Referral ID Status Reason Start Date Expiration Date Visits Requested Visits Authorized [id number] Pending Review Auto-Generat ed Referral 10/14/2021 10/14/2022 1 1 [facility] for referral (narrative)* Diagnostic Procedure Only (Routine) - Pending Review Specialty Diagnoses / Procedures Referred By Contac t Referred To Contact [facility] Diagnoses Screening mammogram, encounter for Procedures ZINA SCREENING SCREENING MAMMOGRAPHY BI 2-VIEW BREAST INC CAD Tala Negron MD [address] [place] [address] [facility] [address] [place] [address] [id number] Referral ID Status Reason Start Date Expiration Date Visits Requested Visits Authorized [id number] Pending Review Auto-Generat ed Referral 02/14/2022 03/16/2023 1 1 [facility] for referral (narrative)* Diagnostic Procedure Only (Routine) - Pending Review Specialty Diagnoses / Procedures Referred By Contac t Referred To Contact [facility] Diagnoses CAMRYN (obstructive sleep apnea) Atrial fibrillation, chronic (HCC) Procedures HOME SLEEP APNEA TEST (HSAT) SLEEP STD AIRFLOW HRT RATE&O2 SAT EFFORT Kizzy Barros APRN.CNP [address] [place] [address] [facility] [place] [address] [place] [address] Referral ID Status Reason Start Date Expiration Date Visits Requested Visits Authorized [id number] Pending Review Auto-Generat ed Referral 02/17/2022 02/17/2023 1 1 [facility] for referral (narrative)* Diagnostic Procedure Only (Routine) - Authorized Specialty Diagnoses / Procedures Referred By Contac t Referred To Contact MOLECULAR & FUNCTIONAL IMAGING Diagnoses Lung nodules Malignant neoplasm of breast in female, estrogen receptor positive, unspecified laterality, unspecified site of breast (HCC) Procedures NM BONE WHOLE BODY BONE &/JOINT IMAGING WHOLE BODY Nimisha Aleman APRN.UROGYNECOLOGY PHYSICIAN [address] [place] [address] Molecular & Functional Imaging [address] [place] [address] Referral ID Status Reason Start Date Expiration Date Visits Requested Visits Authorized [id number] Authorized Auto-Generat ed Referral 02/28/2022 03/30/2023 1 1 * MRI/CT (Routine) - Authorized Specialty Diagnoses / Procedures Referred By Contac t Referred To Contact CT IMAGING Diagnoses Lung nodules Malignant neoplasm of breast in female, estrogen receptor positive, unspecified laterality, unspecified site of breast (HCC) Procedures CT CHEST W IVCON DIAGNOSTIC COMPUTED TOMOGRAPHY THORAX W/CONTRAST Nimisha Aleman APRN.UROGYNECOLOGY PHYSICIAN [address] [place] [address] Ct Imaging Referral ID Status Reason Start Date Expiration Date Visits Requested Visits Authorized [id number] Authorized Auto-Generat ed Referral 02/28/2022 03/30/2023 1 1 * MRI/CT (Routine) - Authorized Specialty Diagnoses / Procedures Referred By Eduardo t Referred To Contact CT IMAGING Diagnoses Lung nodules Malignant neoplasm of breast in female, estrogen receptor positive, unspecified laterality, unspecified site of breast (HCC) Procedures CT ABD/PEL W IVCON CT ABD & PELVIS W/CONTRAST Nimisha Aleman APRN.UROGYNECOLOGY PHYSICIAN [address] [place] [address] Ct Imaging Referral ID Status Reason Start Date Expiration Date Visits Requested Visits Authorized [id number] Authorized Auto-Generat ed Referral 02/28/2022 03/30/2023 1 1 [facility] for referral (narrative)* Diagnostic Procedure Only (Routine) - Pending Review Specialty Diagnoses / Procedures Referred By Contac t Referred To Contact XR IMAGING Diagnoses Bilateral foot pain Procedures XR FOOT GENERAL 3V AP/LAT/OBL BILATERAL RADEX FOOT COMPLETE MINIMUM 3 VIEWS Tracy Mckeon [address] [place] [address] Xr Imaging Referral ID Status Reason Start Date Expiration Date Visits Requested Visits Authorized [id number] Pending Review Auto-Generat ed Referral 05/23/2022 06/22/2023 1 1 [facility] for referral (narrative)* Diagnostic Procedure Only (Routine) - Authorized Specialty Diagnoses / Procedures Referred By Eduardo t Referred To Contact MOLECULAR & FUNCTIONAL IMAGING Diagnoses 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, estrogen receptor positive (HCC) 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) Lung nodules Procedures NM BONE WHOLE BODY BONE &/JOINT IMAGING WHOLE BODY Nimisha Aleman APRN.CNP [address] [place] [address] Molecular & Functional Imaging [address] [place] [address] Referral ID Status Reason Start Date Expiration Date Visits Requested Visits Authorized [id number] Authorized Auto-Generat ed Referral 08/15/2022 09/14/2023 1 [...] Nimisha Aleman APRN.CNP [address] [place] [address] Ct Imaging Referral ID Status Reason Start Date Expiration Date Visits Requested Visits Authorized [id number] Authorized Auto-Generat ed Referral 08/15/2022 09/14/2023 1 1 * MRI/CT (Routine) - Authorized Specialty Diagnoses / Procedures Referred By Contac t Referred To Contact CT IMAGING Diagnoses 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, estrogen receptor positive (HCC) 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) Lung nodules Procedures CT ABD/PEL W IVCON CT ABD & PELVIS W/CONTRAST Nimisha Aleman APRN.UROGYNECOLOGY PHYSICIAN [address] [place] [address] Ct Imaging Referral ID Status Reason Start Date Expiration Date Visits Requested Visits Authorized [id number] Authorized Auto-Generat ed Referral 08/15/2022 09/14/2023 1 1 [facility] for referral (narrative)* Diagnostic Procedure Only (Routine) - Authorized Specialty Diagnoses / Procedures Referred By Contac t Referred To Contact US IMAGING Diagnoses Stage 3b chronic kidney disease (HCC) Essential hypertension Chronic diastolic CHF (congestive heart failure) (HCC) Procedures US KIDNEY/BLADDER US RETROPERITONEAL REAL TIME W/[place] [address] [place] [address] [place] [address] Referral ID Status Reason Start Date Expiration Date Visits Requested Visits Authorized [id number] Authorized Auto-Generat ed Referral 02/25/2023 03/26/2024 1 1 [facility] for referral (narrative)* Diagnostic Procedure Only (Routine) - Pending Review Specialty Diagnoses / Procedures Referred By Contac t Referred To Contact BR IMAGING Diagnoses Encounter for screening mammogram for malignant neoplasm of breast Procedures ZINA SCREENING W VIRGIL SCREENING DIGITAL BREAST TOMOSYNTHESIS BI SCREENING MAMMOGRAPHY BI 2-VIEW BREAST INC Vladimir Peng DO [address] [place] [address] Br Imaging [address] [place] [address] Referral ID Status Reason Start Date Expiration Date Visits Requested Visits Authorized [id number] Pending Review Auto-Generat ed Referral 03/14/2023 04/12/2024 1 1 [facility] for referral (narrative)* Diagnostic Procedure Only [...] CT ATTENUATION SKULL BASE MID-THIGH Nimisha Aleman APRN.UROGYNECOLOGY PHYSICIAN [address] [place] [address] Molecular & Functional Imaging [address] [place] [address] Referral ID Status Reason Start Date Expiration Date Visits Requested Visits Authorized [id number] Authorized Auto-Generat ed Referral 3 05/05/2024 1 1 [facility] for referral (narrative)* Outpatient Procedure (Routine) - Pending Review Specialty Diagnoses / Procedures Referred By Contac t Referred To Contact [facility] Diagnoses Nonrheumatic tricuspid valve regurgitation Procedures ECG COMPLETE ECG ROUTINE ECG W/LEAST 12 LDS W/I&R Randee Rodriguez APRN.CNP [address] [place] [address] [facility] [place] [address] [place] [address] Referral ID Status Reason Start Date Expiration Date Visits Requested Visits Authorized [id number] Pending Review Auto-Generat ed Referral 3 04/12/2024 1 1 * MRI/CT (Routine) - Pending Review Specialty Diagnoses / Procedures Referred By Contac t Referred To Contact CT IMAGING Diagnoses Encounter for preprocedural cardiovascular examination Chronic atrial fibrillation, unspecified (HCC) Procedures CT CARDIAC W IVCON CT HEART CONTRAST EVAL CARDIAC STRUCTURE&MORPH Randee Rodriguez APRN.UROGYNECOLOGY PHYSICIAN [address] [place] [address] [place] [address] Referral ID Status Reason Start Date Expiration Date Visits Requested Visits Authorized [id number] Pending Review Auto-Generat ed Referral 3 05/12/2024 1 1 * Outpatient Procedure (Routine) - Pending Review Specialty Diagnoses / Procedures Referred By Contac dariana Referred To Contact [facility] Diagnoses Nonrheumatic tricuspid valve regurgitation Procedures ECHO TRANSESOPHAGEAL ECHO TRANSESOPHAG R-T 2D W/PRB IMG ACQUISJ I&R Randee Rodriguez APRN.UROGYNECOLOGY PHYSICIAN [address] [place] [address] [place] [id number] Referral ID Status Reason Start Date Expiration Date Visits Requested Visits Authorized [id number] Pending Review Auto-Generat ed Referral 3 04/12/2024 1 1 * Outpatient Procedure (Routine) - Pending Review Specialty Diagnoses / Procedures Referred By Miltonac dariana Referred To Contact [facility] Diagnoses Nonrheumatic tricuspid valve regurgitation Procedures ECHO ECHO TTHRC R-T 2D W/WOM-MODE COMPL SPEC&COLR D Randee Rodriguez APRN.UROGYNECOLOGY PHYSICIAN [address] [place] [address] [address] Referral ID Status Reason Start Date Expiration Date Visits Requested Visits Authorized [id number] Pending Review Auto-Generat ed Referral 3 04/12/2024 1 1 [facility] for referral (narrative)* Diagnostic Procedure Only [...] Vladimir Thao DO [address] [place] [address] Br Imaging [address] [place] [address] Referral ID Status Reason Start Date Expiration Date V isits Requested Visits Authorized [id number] Closed Auto-Generate d Referral 02/02/2023 03/03/2024 1 1 [facility] for referral (narrative)* Diagnostic Procedure Only (Routine) - Closed Specialty Diagnoses / Procedures Referred By Contac t Referred To Contact US IMAGING Diagnoses Stage 3b chronic kidney disease (HCC) Essential hypertension Chronic diastolic CHF (congestive heart failure) (HCC) Procedures US KIDNEY/BLADDER US RETROPERITONEAL REAL TIME W/[place] [address] [place] [address] [place] [address] Referral ID Status Reason Start Date Expiration Date V isits Requested Visits Authorized [id number] Closed Auto-Generate d Referral 02/25/2023 03/26/2024 1 1 [facility] for referral (narrative)* Diagnostic Procedure Only (Routine) - Closed Specialty Diagnoses / Procedures [facility] To Contact MOLECULAR & FUNCTIONAL IMAGING Diagnoses 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, estrogen receptor positive (HCC) 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) Lung nodules Procedures NM BONE WHOLE BODY BONE &/JOINT IMAGING WHOLE BODY Nimisha Aleman APRN.UROGYNECOLOGY PHYSICIAN [address] [place] [address] Molecular & Functional Imaging [address] [place] [address] Referral ID Status Reason Start Date Expiration Date V isits Requested Visits Authorized [id number] Closed Auto-Generate d Referral 08/15/2022 09/14/2023 1 1 [facility] for referral (narrative)* Diagnostic Procedure Only (Routine) - Closed Specialty Diagnoses / Procedures Referred By Contac t Referred To Contact MOLECULAR & FUNCTIONAL IMAGING Diagnoses Lung nodules Malignant neoplasm of breast in female, estrogen receptor positive, unspecified laterality, unspecified site of breast (HCC) Procedures NM BONE WHOLE BODY BONE &/JOINT IMAGING WHOLE BODY Nimisha Aleman APRN.UROGYNECOLOGY PHYSICIAN [address] [place] [address] Molecular & Functional Imaging [address] [place] [address] Referral ID Status Reason Start Date Expiration Date V isits Requested Visits Authorized [id number] Closed Auto-Generate d Referral 02/28/2022 03/30/2023 1 1 [facility] for referral (narrative)* Diagnostic Procedure Only [...] CT ATTENUATION SKULL BASE MID-THIGH Nimisha Aleman APRN.UROGYNECOLOGY PHYSICIAN [address] [place] [address] Molecular & Functional Imaging [address] [place] [address] Referral ID Status Reason Start Date Expiration Date V isits Requested Visits Authorized [id number] Closed Auto-Generate d Referral 04/06/2023 05/05/2024 1 1 [facility] for referral (narrative)* Diagnostic Procedure Only (Routine) - Authorized Specialty Diagnoses / Procedures Referred By Contac t Referred To Contact MOLECULAR & FUNCTIONAL IMAGING Diagnoses Malignant neoplasm of overlapping sites of left breast in female, estrogen receptor positive (HCC) Mediastinal adenopathy Procedures NM PET/CT BREAST PET IMAGING CT ATTENUATION SKULL BASE MID-THIGH Vladimir Thao DO [address] [place] [address] Molecular & Functional Imaging [address] [place] [address] Referral ID Status Reason Start Date Expiration Date Visits Requested Visits Authorized [id number] Authorized Auto-Generat ed Referral 06/09/2024 1 1 [facility] for visit Narrative* Diagnostic Procedure Only [...] INC CAD Vladimir Thao DO [address] [facility] [place] [address] Br Imaging [address] [place] [address] Referral ID Status Reason Start Date Expiration Date V isits Requested Visits Authorized [id number] Closed Auto-Generate d Referral 02/02/2023 03/03/2024 1 1 [facility] for visit Narrative* Diagnostic Procedure Only (Routine) - Closed Specialty Diagnoses / Procedures Referred By Contac t Referred To Contact MOLECULAR & FUNCTIONAL IMAGING Diagnoses 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, estrogen receptor positive (HCC) 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) Lung nodules Procedures NM BONE WHOLE BODY BONE &/JOINT IMAGING WHOLE BODY Nimisha Aleman APRN.UROGYNECOLOGY PHYSICIAN [address] [place] [address] Molecular & Functional Imaging [address] [place] [address] Referral ID Status Reason Start Date Expiration Date V isits Requested Visits Authorized [id number] Closed Auto-Generate d Referral 08/15/2022 09/14/2023 1 1 [facility] for visit Narrative* Diagnostic Procedure Only (Routine) - Closed Specialty Diagnoses / Procedures Referred By Contac t Referred To Contact MOLECULAR & FUNCTIONAL IMAGING Diagnoses Lung nodules Malignant neoplasm of breast in female, estrogen receptor positive, unspecified laterality, unspecified site of breast (HCC) Procedures NM BONE WHOLE BODY BONE &/JOINT IMAGING WHOLE BODY Nimisha Aleman APRN.UROGYNECOLOGY PHYSICIAN [address] [place] [address] Molecular & Functional Imaging [address] [place] [address] Referral ID Status Reason Start Date Expiration Date V isits Requested Visits Authorized [id number] Closed Auto-Generate d Referral 02/28/2022 03/30/2023 1 1 [facility] for visit Narrative* Diagnostic Procedure Only [...] CT ATTENUATION SKULL BASE MID-THIGH Nimisha Aleman APRN.UROGYNECOLOGY PHYSICIAN [address] [place] [address] Molecular & Functional Imaging [address] [place] [address] Referral ID Status Reason Start Date Expiration Date V isits Requested Visits Authorized [id number] Closed Auto-Generate d Referral 04/06/2023 05/05/2024 1 1 [facility] Summary Purpose Family History No Family History Records FoundNo Family History Records FoundNo Family History Records Found Advance Directives No Advanced Directives Records FoundDocuments on File Type Date Recorded Patient Medical Donation Professional Expl anation Advance Directive(s) 02/17/2022 11:05 AM Latest Code Status on File Code Status Date Activated Date Inactivated Comments Full Code 08/15/2020 1:47 PM 08/21/2020 6:53 PM Full Code Order Discussed With: Patient Documents on File Type Date Recorded Patient Medical Donation Professional Expl anation Advance Directive(s) 02/09/2017 2:07 PM Documents on File Type Date Recorded Patient Medical Donation Professional Expl anation Advance Directive(s) 12/25/2020 9:16 AM [...] Documents on File Type Date Recorded Patient Medical Donation Professional Expl anation Advance Directive(s) 12/25/2020 9:16 AM [...] Documents on File Type Date Recorded Patient Medical Donation Professional Expl anation Advance Directive(s) 02/09/2017 2:07 PM Documents on File Type Date Recorded Patient Medical Donation Professional Expl anation Advance Directive(s) 02/17/2022 11:05 AM Advance Directive(s) 02/09/2017 2:07 PM Documents on File Type Date Recorded Patient Medical Donation Professional Expl anation Advance Directive(s) 02/17/2022 11:05 AM [...] With: Patient Procedure Findings Note HNO ID: [id number] Author: Cale Shau Service: ? Author Type: Nurse Slag Mixer Type: Anesthesia Procedure Notes Filed: 02/16/2020 7:51 AM Note Text: ANESTHESIOLOGY PROCEDURE NOTE Airway General Information Procedure Start Time/Medication Administration: 02/16/2020 7:42 AM Patient location during procedure: OR Staffing DISPATCHER SERVICE: Brittany Sahu Performed by: SHANEKA Indications and [...] (more content not included)... Note HNO ID: [id number] Author: Dariana Pereyra Service: General Surgery Author Type: Physician Type: Brief Op Note Filed: 02/16/2020 10:12 AM Note Text: BRIEF OPERATIVE / PROCEDURE NOTE LOG ID: [id number] SURGERY/PROCEDURE DATE: 02/16/2020 INCISION/PROCEDURE START TIME: 8:06 AM INCISION CLOSE/PROCEDURE END TIME: 9:56 AM SURGEON(S)/PROCEDURALIST(S) AND MID TEACHER(S): Surgeon(s) and Role: * Patel Villanueva - Primary * Valorie Pereyra - Fellow Operations Consultant: Vikram Campbell SURGERY/PROCEDURE(S): Parathyroid exploration ANESTHESIA: General [...] DIAGNOSTIC COMPUTED TOMOGRAPHY THORAX W/CONTRAST Nimisha Aleman, BAND PRESSER.UROGYNECOLOGY PHYSICIAN [address] [place] [address] Ct Imaging Referral ID Status Reason Start Date Expiration Date V isits Requested Visits Authorized [id number] Closed Auto-Generate d Referral 11/11/2021 12/11/2022 1 1 Specialty Diagnoses / Procedures Referred By Eduardo westbrook Referred To Contact CT IMAGING Diagnoses 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, estrogen receptor positive (HCC) 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) Procedures CT ABD/PEL W IVCON CT ABD & PELVIS W/CONTRAST Nimisha Aleman, BAND PRESSER.UROGYNECOLOGY PHYSICIAN [address] [place] [address] Ct Imaging Referral ID Status Reason Start Date Expiration Date V isits Requested Visits Authorized [id number] Closed Auto-Generate d Referral 11/11/2021 12/11/2022 1 1 Specialty Diagnoses / Procedures Referred By Contac t Referred To Contact Neurology Diagnoses Neuropathy Procedures CONSULT TO NEUROLOGY OFFICE/OUTPATIENT [facility] 60-74 MINUTES Daniela Chan DO [address] [place] [address] Referral ID Status Reason Start Date Expiration Date Visits Requested Visits Authorized [id number] Authorized PCP Requested Referral 11/26/2021 11/26/2022 1 1 Specialty Diagnoses / Procedures Referred By Contac t Referred To Contact CT IMAGING Diagnoses IPMN (intraductal papillary mucinous neoplasm) Abdominal pain, unspecified abdominal location Procedures CT PANCREAS/PELVIS W IVCON CT ABD & PELVIS W/CONTRAST Vikram Gomez MD [address] [place] [address] Ct Imaging Referral ID Status Reason Start Date Expiration Date Visits Requested Visits Authorized [id number] Pending Review Auto-Generat ed Referral 12/20/2021 01/19/2023 1 1 Referral ID Status Reason Start Date Expiration Date V isits Requested Visits Authorized [id number] Closed Auto-Generate d Referral 12/20/2021 01/19/2023 1 1 Specialty Diagnoses / Procedures Referred By Contac t Referred To Contact CT IMAGING Diagnoses 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, estrogen receptor positive (HCC) Lung nodules Cough Procedures CT CHEST W IVCON DIAGNOSTIC COMPUTED TOMOGRAPHY THORAX W/CONTRAST Nimisha Aleman, KAROLINA.UROGYNECOLOGY PHYSICIAN [address] [place] [address] Ct Imaging Referral ID Status Reason Start Date Expiration Date V isits Requested Visits Authorized [id number] Closed Auto-Generate d Referral 11/22/2021 12/22/2022 1 1 Specialty Diagnoses / Procedures Referred By Contac t Referred To Contact Podiatry Diagnoses Fallen arches Procedures CONSULT TO PODIATRY OFFICE/OUTPATIENT [facility] 60-74 MINUTES Tala Negron MD [facility] [place] [address] Referral ID Status Reason Start Date Expiration Date Visits Requested Visits Authorized [id number] Authorized PCP Requested Referral 05/21/2023 1 1 Specialty Diagnoses / Procedures Referred By Contac t Referred To Contact CT IMAGING Diagnoses 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, estrogen receptor positive (HCC) Lung nodules 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) Procedures CT CHEST W IVCON DIAGNOSTIC COMPUTED TOMOGRAPHY THORAX W/CONTRAST Nimisha Aleman APRN.UROGYNECOLOGY PHYSICIAN [address] [place] [address] Ct Imaging Referral ID Status Reason Start Date Expiration Date Visits Requested Visits Authorized [id number] Authorized Auto-Generat ed Referral 05/23/2022 06/22/2023 1 1 Specialty Diagnoses / Procedures Referred By Contac t Referred To Contact [facility] Diagnoses Fall in home, initial encounter Left upper arm pain Unsteady gait when walking Procedures CONSULT TO PHYSICAL THERAPY PHYSICAL THERAPY EVALUATION HIGH COMPLEX 45 MINS Tala Negron MD [address] [place] [address] [facility] [place] [address] [place] [address] Referral ID Status Reason Start Date Expiration Date Visits Requested Visits Authorized [id number] Authorized PCP Requested Referral Auto-Generate d Referral 08/19/2022 08/19/2023 99 99 Specialty Diagnoses / Procedures Referred By Contac t Referred To Contact XR IMAGING Diagnoses Fall in home, initial encounter Left upper arm pain Procedures XR HUMERUS 2V AP/LAT LEFT RADEX HUMERUS MINIMUM 2 VIEWS Tala Negron MD [address] [place] [address] Xr Imaging Referral ID Status Reason Start Date Expiration Date V isits Requested Visits Authorized [id number] Closed Auto-Generate d Referral 08/19/2022 09/18/2023 1 1 Specialty Diagnoses / Procedures Referred By Contac t Referred To Contact XR IMAGING Diagnoses Fall in home, initial encounter Left upper arm pain Procedures XR SHOULDER GENERAL 3V OR MORE AP/TRUE AP/OTHER LEFT RADEX SHOULDER COMPLETE MINIMUM 2 VIEWS Tala Negron MD [address] [place] [address] Xr Imaging Referral ID Status Reason Start Date Expiration Date V isits Requested Visits Authorized [id number] Closed Auto-Generate d Referral 08/19/2022 09/18/2023 1 1 Specialty Diagnoses / Procedures Referred By Contac t Referred To Contact Nephrology Diagnoses Stage 3b chronic kidney disease (HCC) Procedures CONSULT TO NEPHROLOGY OFFICE/OUTPATIENT NEW HIGH MDM 60-74 MINUTES Melanie Strong APRN.UROGYNECOLOGY PHYSICIAN [address] [place] [address] Referral ID Status Reason Start Date Expiration Date Visits Requested Visits Authorized [id number] Authorized PCP Requested Referral 02/16/2023 02/16/2024 1 1 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) Abnormal radionuclide bone scan Procedures MRI HIP WO/W IVCON RIGHT MRI ANY JT LOWER EXTREM W/O & W/CONTRAST MATRL Nimisha Aleman APRN.UROGYNECOLOGY PHYSICIAN [address] [place] [address] [place] [address] Referral ID Status Reason Start Date Expiration Date V isits Requested Visits Authorized [id number] Closed Auto-Generate d Referral 11/07/2022 12/07/2023 1 1 Specialty Diagnoses / Procedures Referred By Contac t Referred To Contact Procedures CARDIOVASCULAR MEDICINE OP FOLLOW UP APPT ORDER Humberto Wing MD [address] [place] [address] Referral ID Status Reason Start Date Expiration Date Visits Requested Visits Authorized [id number] Ref Not Required PCP Requested Referral 06/23/2023 [...] Date High Risk Chronic Disease Home Monitoring [facility] 11/04/2022 Problem Noted Date Diagnosed Date High Risk Chronic Disease Home Monitoring [facility] 11/04/2022 Problem Noted Date Diagnosed Date High [...] DATE CREATED AUTHOR AUTHOR'S ORGANIZ ATION 05/05/2023 [facility] DATE CREATED AUTHOR AUTHOR'S ORGANIZ ATION 07/15/2023 [facility] Source Comments (unrecognize d section and content) In the event this informatio n is protected by the Federal Confidentiality of Alcohol and Drug Abuse Patient Records regulations: The Federal rules restrict any use of the information to criminally investigate or prosecute any alcohol or drug abuse patient.[facility] the event this information is protected by the Federal Confidentiality of Alcohol and Drug Abuse Patient Records regulations: The Federal rules restrict any use of the information to criminally investigate or prosecute any alcohol or drug abuse patient.[facility] the event this information is protected by the Federal Confidentiality of Alcohol and Drug Abuse Patient Records regulations: The Federal rules restrict any use of the information to criminally investigate or prosecute any alcohol or drug abuse patient.[facility] HospitalIn the event this information is protected by the Federal Confidentiality of Alcohol and Drug Abuse Patient Records regulations: The Federal rules restrict any use of the information to criminally investigate or prosecute any alcohol or drug abuse patient.[facility] HospitalIn the event this information is protected by the Federal Confidentiality of Alcohol and Drug Abuse Patient Records regulations: The Federal rules restrict any use of the information to criminally investigate or prosecute any alcohol or drug abuse patient.[facility] HospitalIn the event this information is protected by the Federal Confidentiality of Alcohol and Drug Abuse Patient Records regulations: The Federal rules restrict any use of the information to criminally investigate or prosecute any alcohol or drug abuse patient.[facility] HospitalIn the event this information is protected by the Federal Confidentiality of Alcohol and Drug Abuse Patient Records regulations: The Federal rules restrict any use of the information to criminally investigate or prosecute any alcohol or drug abuse patient.[facility] HospitalIn the event this information is protected by the Federal Confidentiality of Alcohol and Drug Abuse Patient Records regulations: The Federal rules restrict any use of the information to criminally investigate or prosecute any alcohol or drug abuse patient.[facility] HospitalIn the event this information is protected by the Federal Confidentiality of Alcohol and Drug Abuse Patient Records regulations: The Federal rules restrict any use of the information to criminally investigate or prosecute any alcohol or drug abuse patient.[facility] HospitalIn the event this information is protected by the Federal Confidentiality of Alcohol and Drug Abuse Patient Records regulations: The Federal rules restrict any use of the information to criminally investigate or prosecute any alcohol or drug abuse patient.[facility] HospitalIn the event this information is protected by the Federal Confidentiality of Alcohol and Drug Abuse Patient Records regulations: The Federal rules restrict any use of the information to criminally investigate or prosecute any alcohol or drug abuse patient.[facility] HospitalIn the event this information is protected by the Federal Confidentiality of Alcohol and Drug Abuse Patient Records regulations: The Federal rules restrict any use of the information to criminally investigate or prosecute any alcohol or drug abuse patient.[facility] HospitalIn the event this information is protected by the Federal Confidentiality of Alcohol and Drug Abuse Patient Records regulations: The Federal rules restrict any use of the information to criminally investigate or prosecute any alcohol or drug abuse patient.[facility] HospitalIn the event this information is protected by the Federal Confidentiality of Alcohol and Drug Abuse Patient Records regulations: The Federal rules restrict any use of the information to criminally investigate or prosecute any alcohol or drug abuse patient.[facility] HospitalIn the event this information is protected by the Federal Confidentiality of Alcohol and Drug Abuse Patient Records regulations: The Federal rules restrict any use of the information to criminally investigate or prosecute any alcohol or drug abuse patient.[facility] HospitalIn the event this information is protected by the Federal Confidentiality of Alcohol and Drug Abuse Patient Records regulations: The Federal rules restrict any use of the information to criminally investigate or prosecute any alcohol or drug abuse patient.[facility] HospitalIn the event this information is protected by the Federal Confidentiality of Alcohol and Drug Abuse Patient Records regulations: The Federal rules restrict any use of the information to criminally investigate or prosecute any alcohol or drug abuse patient.[facility] HospitalIn the event this information is protected by the Federal Confidentiality of Alcohol and Drug Abuse Patient Records regulations: The Federal rules restrict any use of the information to criminally investigate or prosecute any alcohol or drug abuse patient.[facility] HospitalIn the event this information is protected by the Federal Confidentiality of Alcohol and Drug Abuse Patient Records regulations: The Federal rules restrict any use of the information to criminally investigate or prosecute any alcohol or drug abuse patient.[facility] HospitalIn the event this information is protected by the Federal Confidentiality of Alcohol and Drug Abuse Patient Records regulations: The Federal rules restrict any use of the information to criminally investigate or prosecute any alcohol or drug abuse patient.[facility] HospitalIn the event this information is protected by the Federal Confidentiality of Alcohol and Drug Abuse Patient Records regulations: The Federal rules restrict any use of the information to criminally investigate or prosecute any alcohol or drug abuse patient.[facility] HospitalIn the event this information is protected by the Federal Confidentiality of Alcohol and Drug Abuse Patient Records regulations: The Federal rules restrict any use of the information to criminally investigate or prosecute any alcohol or drug abuse patient.[facility] HospitalIn the event this information is protected by the Federal Confidentiality of Alcohol and Drug Abuse Patient Records regulations: The Federal rules restrict any use of the information to criminally investigate or prosecute any alcohol or drug abuse patient.[facility] HospitalIn the event this information is protected by the Federal Confidentiality of Alcohol and Drug Abuse Patient Records regulations: The Federal rules restrict any use of the information to criminally investigate or prosecute any alcohol or drug abuse patient.[facility] HospitalIn the event this information is protected by the Federal Confidentiality of Alcohol and Drug Abuse Patient Records regulations: The Federal rules restrict any use of the information to criminally investigate or prosecute any alcohol or drug abuse patient.[facility] HospitalIn the event this information is protected by the Federal Confidentiality of Alcohol and Drug Abuse Patient Records regulations: The Federal rules restrict any use of the information to criminally investigate or prosecute any alcohol or drug abuse patient.[facility] HospitalIn the event this information is protected by the Federal Confidentiality of Alcohol and Drug Abuse Patient Records regulations: The Federal rules restrict any use of the information to criminally investigate or prosecute any alcohol or drug abuse patient.[facility] HospitalIn the event this information is protected by the Federal Confidentiality of Alcohol and Drug Abuse Patient Records regulations: The Federal rules restrict any use of the information to criminally investigate or prosecute any alcohol or drug abuse patient.[facility] HospitalIn the event this information is protected by the Federal Confidentiality of Alcohol and Drug Abuse Patient Records regulations: The Federal rules restrict any use of the information to criminally investigate or prosecute any alcohol or drug abuse patient.[facility] HospitalIn the event this information is protected by the Federal Confidentiality of Alcohol and Drug Abuse Patient Records regulations: The Federal rules restrict any use of the information to criminally investigate or prosecute any alcohol or drug abuse patient.[facility] HospitalIn the event this information is protected by the Federal Confidentiality of Alcohol and Drug Abuse Patient Records regulations: The Federal rules restrict any use of the information to criminally investigate or prosecute any alcohol or drug abuse patient.[facility] HospitalIn the event this information is protected by the Federal Confidentiality of Alcohol and Drug Abuse Patient Records regulations: The Federal rules restrict any use of the information to criminally investigate or prosecute any alcohol or drug abuse patient.[facility] HospitalIn the event this information is protected by the Federal Confidentiality of Alcohol and Drug Abuse Patient Records regulations: The Federal rules restrict any use of the information to criminally investigate or prosecute any alcohol or drug abuse patient.[facility] HospitalIn the event this information is protected by the Federal Confidentiality of Alcohol and Drug Abuse Patient Records regulations: The Federal rules restrict any use of the information to criminally investigate or prosecute any alcohol or drug abuse patient.[facility] HospitalIn the event this information is protected by the Federal Confidentiality of Alcohol and Drug Abuse Patient Records regulations: The Federal rules restrict any use of the information to criminally investigate or prosecute any alcohol or drug abuse patient.[facility] HospitalIn the event this information is protected by the Federal Confidentiality of Alcohol and Drug Abuse Patient Records regulations: The Federal rules restrict any use of the information to criminally investigate or prosecute any alcohol or drug abuse patient.[facility] HospitalIn the event this information is protected by the Federal Confidentiality of Alcohol and Drug Abuse Patient Records regulations: The Federal rules restrict any use of the information to criminally investigate or prosecute any alcohol or drug abuse patient.[facility] HospitalIn the event this information is protected by the Federal Confidentiality of Alcohol and Drug Abuse Patient Records regulations: The Federal rules restrict any use of the information to criminally investigate or prosecute any alcohol or drug abuse patient.[facility] HospitalIn the event this information is protected by the Federal Confidentiality of Alcohol and Drug Abuse Patient Records regulations: The Federal rules restrict any use of the information to criminally investigate or prosecute any alcohol or drug abuse patient.[facility] HospitalIn the event this information is protected by the Federal Confidentiality of Alcohol and Drug Abuse Patient Records regulations: The Federal rules restrict any use of the information to criminally investigate or prosecute any alcohol or drug abuse patient.[facility] HospitalIn the event this information is protected by the Federal Confidentiality of Alcohol and Drug Abuse Patient Records regulations: The Federal rules restrict any use of the information to criminally investigate or prosecute any alcohol or drug abuse patient.[facility] HospitalIn the event this information is protected by the Federal Confidentiality of Alcohol and Drug Abuse Patient Records regulations: The Federal rules restrict any use of the information to criminally investigate or prosecute any alcohol or drug abuse patient.[facility] HospitalIn the event this information is protected by the Federal Confidentiality of Alcohol and Drug Abuse Patient Records regulations: The Federal rules restrict any use of the information to criminally investigate or prosecute any alcohol or drug abuse patient.[facility] HospitalIn the event this information is protected by the Federal Confidentiality of Alcohol and Drug Abuse Patient Records regulations: The Federal rules restrict any use of the information to criminally investigate or prosecute any alcohol or drug abuse patient.[facility] HospitalIn the event this information is protected by the Federal Confidentiality of Alcohol and Drug Abuse Patient Records regulations: The Federal rules restrict any use of the information to criminally investigate or prosecute any alcohol or drug abuse patient.[facility] HospitalIn the event this information is protected by the Federal Confidentiality of Alcohol and Drug Abuse Patient Records regulations: The Federal rules restrict any use of the information to criminally investigate or prosecute any alcohol or drug abuse patient.[facility] HospitalIn the event this information is protected by the Federal Confidentiality of Alcohol and Drug Abuse Patient Records regulations: The Federal rules restrict any use of the information to criminally investigate or prosecute any alcohol or drug abuse patient.[facility] HospitalIn the event this information is protected by the Federal Confidentiality of Alcohol and Drug Abuse Patient Records regulations: The Federal rules restrict any use of the information to criminally investigate or prosecute any alcohol or drug abuse patient.[facility] HospitalIn the event this information is protected by the Federal Confidentiality of Alcohol and Drug Abuse Patient Records regulations: The Federal rules restrict any use of the information to criminally investigate or prosecute any alcohol or drug abuse patient.[facility] HospitalIn the event this information is protected by [...] or prosecute any alcohol or drug abuse patient.[facility] HospitalIn the event this information is protected by the Federal Confidentiality of Alcohol and Drug Abuse Patient Records regulations: The Federal rules restrict any use of the information to criminally investigate or prosecute any alcohol or drug abuse patient.[facility] HospitalIn the event this information is protected by the Federal Confidentiality of Alcohol and Drug Abuse Patient Records regulations: The Federal rules restrict any use of the information to criminally investigate or prosecute any alcohol or drug abuse patient.[facility] HospitalIn the event this information is protected by the Federal Confidentiality of Alcohol and Drug Abuse Patient Records regulations: The Federal rules restrict any use of the information to criminally investigate or prosecute any alcohol or drug abuse patient.[facility] HospitalIn the event this information is protected by the Federal Confidentiality of Alcohol and Drug Abuse Patient Records regulations: The Federal rules restrict any use of the information to criminally investigate or prosecute any alcohol or drug abuse patient.[facility] HospitalIn the event this information is protected by the Federal Confidentiality of Alcohol and Drug Abuse Patient Records regulations: The Federal rules restrict any use of the information to criminally investigate or prosecute any alcohol or drug abuse patient.[facility] HospitalIn the event this information is protected by the Federal Confidentiality of Alcohol and Drug Abuse Patient Records regulations: The Federal rules restrict any use of the information to criminally investigate or prosecute any alcohol or drug abuse patient.[facility] HospitalIn the event this information is protected by the Federal Confidentiality of Alcohol and Drug Abuse Patient Records regulations: The Federal rules restrict any use of the information to criminally investigate or prosecute any alcohol or drug abuse patient.[facility] HospitalIn the event this information is protected by the Federal Confidentiality of Alcohol and Drug Abuse Patient Records regulations: The Federal rules restrict any use of the information to criminally investigate or prosecute any alcohol or drug abuse patient.[facility] HospitalIn the event this information is protected by the Federal Confidentiality of Alcohol and Drug Abuse Patient Records regulations: The Federal rules restrict any use of the information to criminally investigate or prosecute any alcohol or drug abuse patient.[facility] HospitalIn the event this information is protected by the Federal Confidentiality of Alcohol and Drug Abuse Patient Records regulations: The Federal rules restrict any use of the information to criminally investigate or prosecute any alcohol or drug abuse patient.[facility] HospitalIn the event this information is protected by the Federal Confidentiality of Alcohol and Drug Abuse Patient Records regulations: The Federal rules restrict any use of the information to criminally investigate or prosecute any alcohol or drug abuse patient.[facility] HospitalIn the event this information is protected by the Federal Confidentiality of Alcohol and Drug Abuse Patient Records regulations: The Federal rules restrict any use of the information to criminally investigate or prosecute any alcohol or drug abuse patient.[facility] HospitalIn the event this information is protected by the Federal Confidentiality of Alcohol and Drug Abuse Patient Records regulations: The Federal rules restrict any use of the information to criminally investigate or prosecute any alcohol or drug abuse patient.[facility] HospitalIn the event this information is protected by the Federal Confidentiality of Alcohol and Drug Abuse Patient Records regulations: The Federal rules restrict any use of the information to criminally investigate or prosecute any alcohol or drug abuse patient.[facility] HospitalIn the event this information is protected by the Federal Confidentiality of Alcohol and Drug Abuse Patient Records regulations: The Federal rules restrict any use of the information to criminally investigate or prosecute any alcohol or drug abuse patient.[facility] HospitalIn the event this information is protected by the Federal Confidentiality of Alcohol and Drug Abuse Patient Records regulations: The Federal rules restrict any use of the information to criminally investigate or prosecute any alcohol or drug abuse patient.[facility] HospitalIn the event this information is protected by the Federal Confidentiality of Alcohol and Drug Abuse Patient Records regulations: The Federal rules restrict any use of the information to criminally investigate or prosecute any alcohol or drug abuse patient.[facility] HospitalIn the event this information is protected by the Federal Confidentiality of Alcohol and Drug Abuse Patient Records regulations: The Federal rules restrict any use of the information to criminally investigate or prosecute any alcohol or drug abuse patient.[facility] HospitalIn the event this information is protected by the Federal Confidentiality of Alcohol and Drug Abuse Patient Records regulations: The Federal rules restrict any use of the information to criminally investigate or prosecute any alcohol or drug abuse patient.[facility] HospitalIn the event this information is protected by the Federal Confidentiality of Alcohol and Drug Abuse Patient Records regulations: The Federal rules restrict any use of the information to criminally investigate or prosecute any alcohol or drug abuse patient.[facility] HospitalIn the event this information is protected by the Federal Confidentiality of Alcohol and Drug Abuse Patient Records regulations: The Federal rules restrict any use of the information to criminally investigate or prosecute any alcohol or drug abuse patient.[facility] HospitalIn the event this information is protected by the Federal Confidentiality of Alcohol and Drug Abuse Patient Records regulations: The Federal rules restrict any use of the information to criminally investigate or prosecute any alcohol or drug abuse patient.[facility] HospitalIn the event this information is protected by the Federal Confidentiality of Alcohol and Drug Abuse Patient Records regulations: The Federal rules restrict any use of the information to criminally investigate or prosecute any alcohol or drug abuse patient.[facility] HospitalIn the event this information is protected by the Federal Confidentiality of Alcohol and Drug Abuse Patient Records regulations: The Federal rules restrict any use of the information to criminally investigate or prosecute any alcohol or drug abuse patient.[facility] HospitalIn the event this information is protected by the Federal Confidentiality of Alcohol and Drug Abuse Patient Records regulations: The Federal rules restrict any use of the information to criminally investigate or prosecute any alcohol or drug abuse patient.[facility] HospitalIn the event this information is protected by the Federal Confidentiality of Alcohol and Drug Abuse Patient Records regulations: The Federal rules restrict any use of the information to criminally investigate or prosecute any alcohol or drug abuse patient.[facility] HospitalIn the event this information is protected by the Federal Confidentiality of Alcohol and Drug Abuse Patient Records regulations: The Federal rules restrict any use of the information to criminally investigate or prosecute any alcohol or drug abuse patient.[facility] HospitalIn the event this information is protected by the Federal Confidentiality of Alcohol and Drug Abuse Patient Records regulations: The Federal rules restrict any use of the information to criminally investigate or prosecute any alcohol or drug abuse patient.[facility] HospitalIn the event this information is protected by the Federal Confidentiality of Alcohol and Drug Abuse Patient Records regulations: The Federal rules restrict any use of the information to criminally investigate or prosecute any alcohol or drug abuse patient.[facility] HospitalIn the event this information is protected by the Federal Confidentiality of Alcohol and Drug Abuse Patient Records regulations: The Federal rules restrict any use of the information to criminally investigate or prosecute any alcohol or drug abuse patient.[facility] HospitalIn the event this information is protected by the Federal Confidentiality of Alcohol and Drug Abuse Patient Records regulations: The Federal rules restrict any use of the information to criminally investigate or prosecute any alcohol or drug abuse patient.[facility] HospitalIn the event this information is protected by the Federal Confidentiality of Alcohol and Drug Abuse Patient Records regulations: The Federal rules restrict any use of the information to criminally investigate or prosecute any alcohol or drug abuse patient.[facility] HospitalIn the event this information is protected by the Federal Confidentiality of Alcohol and Drug Abuse Patient Records regulations: The Federal rules restrict any use of the information to criminally investigate or prosecute any alcohol or drug abuse patient.[facility] HospitalIn the event this information is protected by the Federal Confidentiality of Alcohol and Drug Abuse Patient Records regulations: The Federal rules restrict any use of the information to criminally investigate or prosecute any alcohol or drug abuse patient.[facility] HospitalIn the event this information is protected by the Federal Confidentiality of Alcohol and Drug Abuse Patient Records regulations: The Federal rules restrict any use of the information to criminally investigate or prosecute any alcohol or drug abuse patient.[facility] HospitalIn the event this information is protected by the Federal Confidentiality of Alcohol and Drug Abuse Patient Records regulations: The Federal rules restrict any use of the information to criminally investigate or prosecute any alcohol or drug abuse patient.[facility] HospitalIn the event this information is protected by the Federal Confidentiality of Alcohol and Drug Abuse Patient Records regulations: The Federal rules restrict any use of the information to criminally investigate or prosecute any alcohol or drug abuse patient.[facility] HospitalIn the event this information is protected by the Federal Confidentiality of Alcohol and Drug Abuse Patient Records regulations: The Federal rules restrict any use of the information to criminally investigate or prosecute any alcohol or drug abuse patient.[facility] HospitalIn the event this information is protected by the Federal Confidentiality of Alcohol and Drug Abuse Patient Records regulations: The Federal rules restrict any use of the information to criminally investigate or prosecute any alcohol or drug abuse patient.[facility] HospitalIn the event this information is protected by the Federal Confidentiality of Alcohol and Drug Abuse Patient Records regulations: The Federal rules restrict any use of the information to criminally investigate or prosecute any alcohol or drug abuse patient.[facility] HospitalIn the event this information is protected by the Federal Confidentiality of Alcohol and Drug Abuse Patient Records regulations: The Federal rules restrict any use of the information to criminally investigate or prosecute any alcohol or drug abuse patient.[facility] HospitalIn the event this information is protected by the Federal Confidentiality of Alcohol and Drug Abuse Patient Records regulations: The Federal rules restrict any use of the information to criminally investigate or prosecute any alcohol or drug abuse patient.[facility] HospitalIn the event this information is protected by the Federal Confidentiality of Alcohol and Drug Abuse Patient Records regulations: The Federal rules restrict any use of the information to criminally investigate or prosecute any alcohol or drug abuse patient.[facility] HospitalIn the event this information is protected by the Federal Confidentiality of Alcohol and Drug Abuse Patient Records regulations: The Federal rules restrict any use of the information to criminally investigate or prosecute any alcohol or drug abuse patient.[facility] HospitalIn the event this information is protected by the Federal Confidentiality of Alcohol and Drug Abuse Patient Records regulations: The Federal rules restrict any use of the information to criminally investigate or prosecute any alcohol or drug abuse patient.[facility] HospitalIn the event this information is protected by the Federal Confidentiality of Alcohol and Drug Abuse Patient Records regulations: The Federal rules restrict any use of the information to criminally investigate or prosecute any alcohol or drug abuse patient.[facility] HospitalIn the event this information is protected by the Federal Confidentiality of Alcohol and Drug Abuse Patient Records regulations: The Federal rules restrict any use of the information to criminally investigate or prosecute any alcohol or drug abuse patient.[facility] HospitalIn the event this information is protected by the Federal Confidentiality of Alcohol and Drug Abuse Patient Records regulations: The Federal rules restrict any use of the information to criminally investigate or prosecute any alcohol or drug abuse patient.[facility] HospitalIn the event this information is protected by [...] or prosecute any alcohol or drug abuse patient.[facility] HospitalIn the event this information is protected by the Federal Confidentiality of Alcohol and Drug Abuse Patient Records regulations: The Federal rules restrict any use of the information to criminally investigate or prosecute any alcohol or drug abuse patient.[facility] HospitalIn the event this information is protected by the Federal Confidentiality of Alcohol and Drug Abuse Patient Records regulations: The Federal rules restrict any use of the information to criminally investigate or prosecute any alcohol or drug abuse patient.[facility] HospitalIn the event this information is protected by the Federal Confidentiality of Alcohol and Drug Abuse Patient Records regulations: The Federal rules restrict any use of the information to criminally investigate or prosecute any alcohol or drug abuse patient.[facility] HospitalIn the event this information is protected by the Federal Confidentiality of Alcohol and Drug Abuse Patient Records regulations: The Federal rules restrict any use of the information to criminally investigate or prosecute any alcohol or drug abuse patient.[facility] HospitalIn the event this information is protected by the Federal Confidentiality of Alcohol and Drug Abuse Patient Records regulations: The Federal rules restrict any use of the information to criminally investigate or prosecute any alcohol or drug abuse patient.[facility] HospitalIn the event this information is protected by the Federal Confidentiality of Alcohol and Drug Abuse Patient Records regulations: The Federal rules restrict any use of the information to criminally investigate or prosecute any alcohol or drug abuse patient.[facility] HospitalIn the event this information is protected by the Federal Confidentiality of Alcohol and Drug Abuse Patient Records regulations: The Federal rules restrict any use of the information to criminally investigate or prosecute any alcohol or drug abuse patient.[facility] HospitalIn the event this information is protected by the Federal Confidentiality of Alcohol and Drug Abuse Patient Records regulations: The Federal rules restrict any use of the information to criminally investigate or prosecute any alcohol or drug abuse patient.[facility] HospitalIn the event this information is protected by the Federal Confidentiality of Alcohol and Drug Abuse Patient Records regulations: The Federal rules restrict any use of the information to criminally investigate or prosecute any alcohol or drug abuse patient.[facility] HospitalIn the event this information is protected by the Federal Confidentiality of Alcohol and Drug Abuse Patient Records regulations: The Federal rules restrict any use of the information to criminally investigate or prosecute any alcohol or drug abuse patient.[facility] HospitalIn the event this information is protected by the Federal Confidentiality of Alcohol and Drug Abuse Patient Records regulations: The Federal rules restrict any use of the information to criminally investigate or prosecute any alcohol or drug abuse patient.[facility] HospitalIn the event this information is protected by the Federal Confidentiality of Alcohol and Drug Abuse Patient Records regulations: The Federal rules restrict any use of the information to criminally investigate or prosecute any alcohol or drug abuse patient.[facility] HospitalIn the event this information is protected by the Federal Confidentiality of Alcohol and Drug Abuse Patient Records regulations: The Federal rules restrict any use of the information to criminally investigate or prosecute any alcohol or drug abuse patient.[facility] HospitalIn the event this information is protected by the Federal Confidentiality of Alcohol and Drug Abuse Patient Records regulations: The Federal rules restrict any use of the information to criminally investigate or prosecute any alcohol or drug abuse patient.[facility] HospitalIn the event this information is protected by the Federal Confidentiality of Alcohol and Drug Abuse Patient Records regulations: The Federal rules restrict any use of the information to criminally investigate or prosecute any alcohol or drug abuse patient.[facility] HospitalIn the event this information is protected by the Federal Confidentiality of Alcohol and Drug Abuse Patient Records regulations: The Federal rules restrict any use of the information to criminally investigate or prosecute any alcohol or drug abuse patient.[facility] HospitalIn the event this information is protected by the Federal Confidentiality of Alcohol and Drug Abuse Patient Records regulations: The Federal rules restrict any use of the information to criminally investigate or prosecute any alcohol or drug abuse patient.[facility] HospitalIn the event this information is protected by the Federal Confidentiality of Alcohol and Drug Abuse Patient Records regulations: The Federal rules restrict any use of the information to criminally investigate or prosecute any alcohol or drug abuse patient.[facility] HospitalIn the event this information is protected by the Federal Confidentiality of Alcohol and Drug Abuse Patient Records regulations: The Federal rules restrict any use of the information to criminally investigate or prosecute any alcohol or drug abuse patient.[facility] HospitalIn the event this information is protected by the Federal Confidentiality of Alcohol and Drug Abuse Patient Records regulations: The Federal rules restrict any use of the information to criminally investigate or prosecute any alcohol or drug abuse patient.[facility] HospitalIn the event this information is protected by the Federal Confidentiality of Alcohol and Drug Abuse Patient Records regulations: The Federal rules restrict any use of the information to criminally investigate or prosecute any alcohol or drug abuse patient.[facility] HospitalIn the event this information is protected by the Federal Confidentiality of Alcohol and Drug Abuse Patient Records regulations: The Federal rules restrict any use of the information to criminally investigate or prosecute any alcohol or drug abuse patient.[facility] HospitalIn the event this information is protected by the Federal Confidentiality of Alcohol and Drug Abuse Patient Records regulations: The Federal rules restrict any use of the information to criminally investigate or prosecute any alcohol or drug abuse patient.[facility] HospitalIn the event this information is protected by the Federal Confidentiality of Alcohol and Drug Abuse Patient Records regulations: The Federal rules restrict any use of the information to criminally investigate or prosecute any alcohol or drug abuse patient.[facility] HospitalIn the event this information is protected by the Federal Confidentiality of Alcohol and Drug Abuse Patient Records regulations: The Federal rules restrict any use of the information to criminally investigate or prosecute any alcohol or drug abuse patient.[facility] HospitalIn the event this information is protected by the Federal Confidentiality of Alcohol and Drug Abuse Patient Records regulations: The Federal rules restrict any use of the information to criminally investigate or prosecute any alcohol or drug abuse patient.[facility] HospitalIn the event this information is protected by the Federal Confidentiality of Alcohol and Drug Abuse Patient Records regulations: The Federal rules restrict any use of the information to criminally investigate or prosecute any alcohol or drug abuse patient.[facility] HospitalIn the event this information is protected by the Federal Confidentiality of Alcohol and Drug Abuse Patient Records regulations: The Federal rules restrict any use of the information to criminally investigate or prosecute any alcohol or drug abuse patient.[facility] Care Teams (unrecognized sec tion and content) Patient Financial Services Specialist Relationship Specialty Start Date End Date Tala Negron MD [address] [place] [address] PCP - General Family Practice 01/26/17 J Luis Cid [address] [place] [address] Physician Oncology 01/16/17 Indu Lipscomb (Rn), RN [address] [place] [address] Specialty Principal Process Engineer Hematology/Oncology 01/16/17 No, Referral Referring 03/29/19 Howard Cody MD [address] [place] [address] Primary Staff Physician Cardiology 09/07/18 Estefani Bryant MD, MD [address] [facility] [place], [place] [id number] Physician Radiation Oncology 02/17/20 Kami Toure, RN Specialty Principal Process Engineer Oncology 06/29/20 Vikram Gomez MD [address] [place], [place] [id number] Referring General Surgery 08/20/20 Vikram Gomez MD [address] [place], [place] [id number] Home Care Physician General Surgery 08/20/20 Lesley Oviedo early childhood services coordinatorCash Application Representative 02/20/21 Patient Financial Services Specialist Relationship Specialty Start Date End Date Tala Negron MD [address] [place], [place] [id number] PCP - General Family Practice 01/26/17 J Luis Cid [address] [place] [address] Physician Oncology 01/16/17 Indu Lipscomb (Rn), RN [address] [place] [address] Specialty Principal Process Engineer Hematology/Oncology 01/16/17 No, Referral Referring 03/29/19 Howard Cody MD [address] [place] [address] Primary Staff Physician Cardiology 09/07/18 Estefani Bryant MD, [address] [place], [place] [id number] Physician Radiation Oncology 02/17/20 Kami Toure, RN Specialty Principal Process Engineer Oncology 06/29/20 Vikram Gomez MD [address] [place], [place] [id number] Referring General Surgery 08/20/20 Vikram Gomez MD [address] [place] [address] Home Care Physician General Surgery 08/20/20 Lesley Oviedo, early childhood services coordinatorCash Application Representative 02/20/21 Patient Financial Services Specialist Relationship Specialty Start Date End Date Tala Negron MD [address] [place], [place] [id number] PCP - General Family Practice 01/26/17 J Luis Cid [address] [place] [address] Physician Oncology 01/16/17 Indu Lipscomb (Rn), RN [address] [place] [address] Specialty Principal Process Engineer Hematology/Oncology 01/16/17 No, Referral Referring 03/29/19 Howard Cody MD [address] [place], [place] [id number] Primary Staff Physician Cardiology 09/07/18 Estefani Bryant MD, [address] [facility] [place], [place] [phone] Physician Radiation Oncology 02/17/20 Kami Toure, RN Specialty Principal Process Engineer Oncology 06/29/20 Vikram Gomez MD [address] [place], [place] [phone] Referring General Surgery 08/20/20 Vikram Gomez MD [address] [place] [address] Home Care Physician General Surgery 08/20/20 Lesley Oviedo, early childhood services coordinatorCash Application Representative 02/20/21 Patient Financial Services Specialist Relationship Specialty Start Date End Date Tala Negron MD [address] [place], [place] [id number] PCP - General Family Practice 01/26/17 J Luis Cid [address] [place] [address] Physician Oncology 01/16/17 Indu Lipscomb (Rn), RN [address] [place] [address] Specialty Principal Process Engineer Hematology/Oncology 01/16/17 No, Referral Referring 03/29/19 Howard Cody MD [address] [place] [address] Primary Staff Physician Cardiology 09/07/18 Estefani Bryant MD, [address] [place], [place] [id number] Physician Radiation Oncology 02/17/20 Kami Toure, RN Specialty Principal Process Engineer Oncology 06/29/20 Vikram Gomez MD [address] [place], [place] [phone] Referring General Surgery 08/20/20 Vikram Gomez MD [address] [place], [place] [phone] Home Care Physician General Surgery 08/20/20 Lesley Oviedo, early childhood services coordinatorCash Application Representative 02/20/21 Patient Financial Services Specialist Relationship Specialty Start Date End Date Tala Negron MD [address] [place], [place] [id number] PCP - General Family Practice 01/26/17 J Luis Cid [address] [place] [address] Physician Oncology 01/16/17 Indu Lipscomb (Rn), RN [address] [place] [address] Specialty Principal Process Engineer Hematology/Oncology 01/16/17 No, Referral Referring 03/29/19 Howard Cody MD [address] [place], [place] [id number] Primary Staff Physician Cardiology 09/07/18 Estefani Bryant MD, [address] [place], [place] [address] Physician Radiation Oncology 02/17/20 Kami Toure, RN Specialty Principal Process Engineer Oncology 06/29/20 Vikram Gomez MD [address] [place], [place] [phone] Referring General Surgery 08/20/20 Vikram Gomez MD [address] [place], [place] [phone] Home Care Physician General Surgery 08/20/20 Lesley Oviedo early childhood services coordinatorCash Application Representative 02/20/21 Patient Financial Services Specialist Relationship Specialty Start Date End Date Tala Negron MD [address] [place], [place] [id number] PCP - General Family Practice 01/26/17 J Luis Cid [address] [place], [place] 9081506 Physician Oncology 01/16/17 Indu Lipscomb (Rn), RN [address] [place], [place] 1578695 Specialty Principal Process Engineer Hematology/Oncology 01/16/17 No, Referral Referring 03/29/19 Howard Cody MD [address] [place], [place] 5385495 Primary Staff Physician Cardiology 09/07/18 Estefani Bryant MD, [address] [place], [place] [address] Physician Radiation Oncology 02/17/20 Kami Toure, RN Specialty Principal Process Engineer Oncology 06/29/20 Vikram Gomez MD [address] [place], [place] 8704792 Referring General Surgery 08/20/20 Vikram Gomez MD [address] [place] [address] Home Care Physician General Surgery 08/20/20 Lesley Oviedo RN [address] [place], [place] 225[address] Cash Application Representative 02/20/21 Patient Financial Services Specialist Relationship Specialty Start Date End Date Tala Negron MD [address] [place], [place] [id number] PCP - General Family Practice 01/26/17 J Luis Cid [address] [place], [place] 4517406 Physician Oncology 01/16/17 Indu Lipscomb (Rn), RN [address] [place] [address] Specialty Principal Process Engineer Hematology/Oncology 01/16/17 No, Referral Referring 03/29/19 Howard Cody MD [address] [place], [place] [address] Primary Staff Physician Cardiology 09/07/18 Estefani Bryant MD, [address] [place], [place] [address]10[address] Physician Radiation Oncology 02/17/20 Kami Toure RN Specialty Principal Process Engineer Oncology 06/29/20 Vikram Gomez MD [address] [place], [place] 0357295 Referring General Surgery 08/20/20 Vikram Gomez MD [address] [place] [address] Home Care Physician General Surgery 08/20/20 Lesley Oviedo RN [address] [place], [place] [phone] Cash Application Representative 02/20/21 Patient Financial Services Specialist Relationship Specialty Start Date End Date Tala Negron MD [address] [place], [place] [id number] PCP - General Family Practice 01/26/17 J Luis Cid [address] [place] [address] Physician Oncology 01/16/17 Indu Lipscomb (Rn), RN [address] [place] [address] Specialty Principal Process Engineer Hematology/Oncology 01/16/17 No, Referral Referring 03/29/19 Howard Cody MD [address] [place] [address] Primary Staff Physician Cardiology 09/07/18 Estefani Bryant MD, [address] [place], [place] [address] Physician Radiation Oncology 02/17/20 Kami Toure, DEE Specialty Principal Process Engineer Oncology 06/29/20 Vikram Gomez MD [address] [place] [address] Referring General Surgery 08/20/20 Vikram Gomez MD [address] [place] [address] Home Care Physician General Surgery 08/20/20 Lesley Oviedo RN [address] [place], [place] 6803631 Cash Application Representative 02/20/21 Patient Financial Services Specialist Relationship Specialty Start Date End Date Tala Negron MD [address] [place], [place] [id number] PCP - General Family Practice 01/26/17 J Luis Cid [address] [place] [address] Physician Oncology 01/16/17 Indu Lipscomb (Rn), RN [address] [place], [place] 2929195 Specialty Principal Process Engineer Hematology/Oncology 01/16/17 No, Referral Referring 03/29/19 Howard Cody MD [address] [place] [address] Primary Staff Physician Cardiology 09/07/18 Estefani Bryant MD, [address] [place], [place] [address] Physician Radiation Oncology 02/17/20 Kami Toure RN Specialty Principal Process Engineer Oncology 06/29/20 Vikram Gomez MD [address] [place], [place] [phone] Referring General Surgery 08/20/20 Vikram Gomez MD [address] [place], [place] 2664895 Home Care Physician General Surgery 08/20/20 Lesley Oviedo, RN [address] [place] [address] Cash Application Representative 02/20/21 Patient Financial Services Specialist Relationship Specialty Start Date End Date Tala Negron MD [address] [place], [place] [id number] PCP - General Family Practice 01/26/17 J Luis Cid [address] [place] [address] Physician Oncology 01/16/17 DeisiIndu li (Rn), RN [address] [place], [place] 5448295 Specialty Principal Process Engineer Hematology/Oncology 01/16/17 No, Referral Referring 03/29/19 Howard Cody MD [address] [place] [address] Primary Staff Physician Cardiology 09/07/18 Estefani Bryant MD, [address] [place] [address] Physician Radiation Oncology 02/17/20 Kami Toure, DEE Specialty Principal Process Engineer Oncology 06/29/20 Vikram Gomez MD [address] [place] [address] Referring General Surgery 08/20/20 Vikram Gomez MD [address] [place], [place] 0873295 Home Care Physician General Surgery 08/20/20 Lesley Oviedo RN [address] [place] [address] Cash Application Representative 02/20/21 Patient Financial Services Specialist Relationship Specialty Start Date End Date Tala Negron MD [address] [place], [place] [id number] PCP - General Family Practice 01/26/17 J Luis Cid [address] [place] [address] Physician Oncology 01/16/17 Indu Lipscomb (Rn), RN [address] [place], [place] 0793195 Specialty Principal Process Engineer Hematology/Oncology 01/16/17 No, Referral Referring 03/29/19 Howard Cody MD [address] [place], [place] 1773095 Primary Staff Physician Cardiology 09/07/18 Estefani Bryant MD, [address] [place], [place] [address] Physician Radiation Oncology 02/17/20 Doup, Kami, RN Specialty Principal Process Engineer Oncology 06/29/20 Vikram Gomez MD [address] [place] [address] Referring General Surgery 08/20/20 Vikram Gomez MD [address] [place] [address] Home Care Physician General Surgery 08/20/20 Lesley Oviedo RN [address] [place], [place] [phone] Cash Application Representative 02/20/21 Daniela Chan DO [address] [place] [address] Primary Staff Physician Cardiology 11/19/21 Patient Financial Services Specialist Relationship Specialty Start Date End Date Tala Negron MD [address] [place], [place] [id number] PCP - General Family Practice 01/26/17 J Luis iCd [address] [place] [address] Physician Oncology 01/16/17 Indu Lipscomb (Rn), RN [address] [place] [address] Specialty Principal Process Engineer Hematology/Oncology 01/16/17 No, Referral Referring 03/29/19 Howard Cody MD [address] [place] [address] Primary Staff Physician Cardiology 09/07/18 Estefani Bryant MD, [address] [place], [place] 39[address] Physician Radiation Oncology 02/17/20 Kami Toure RN Specialty Principal Process Engineer Oncology 06/29/20 Vikram Gomez MD [address] [place], [place] 486[address] Referring General Surgery 08/20/20 Vikram Gomez MD [address] [place], [place] 4027695 Home Care Physician General Surgery 08/20/20 Lesley Oviedo, RN [address] [place], [place] [phone] Cash Application Representative 02/20/21 Daniela Chan DO [address] [place], [place] 0423995 Primary Staff Physician Cardiology 11/19/21 Patient Financial Services Specialist Relationship Specialty Start Date End Date Tala Negron MD [address] [place], [place] [id number] PCP - General Family Practice 01/26/17 J Luis Cid [address] [place], [place] 9422906 Physician Oncology 01/16/17 Indu Lipscomb (Rn), RN [address] [place], [place] 9548195 Specialty Principal Process Engineer Hematology/Oncology 01/16/17 No, Referral Referring 03/29/19 Howard oCdy MD [address] [place], [place] 6075995 Primary Staff Physician Cardiology 09/07/18 Estefani Bryant MD, [address] [place], [place] [address] Physician Radiation Oncology 02/17/20 Kami Toure, DEE Specialty Principal Process Engineer Oncology 06/29/20 Vikram Gomez MD [address] [place], [place] [phone] Referring General Surgery 08/20/20 Vikram Gomez MD [address] [place], [place] [phone] Home Care Physician General Surgery 08/20/20 Lesley Oviedo RN [address] [place] [address] Cash Application Representative 02/20/21 Daniela Chan DO [address] [place], [place] 6302295 Primary Staff Physician Cardiology 11/19/21 Patient Financial Services Specialist Relationship Specialty Start Date End Date Tala Negron MD [address] [place], [place] [phone] PCP - General Family Practice 01/26/17 J Luis Cid [address] [place] [address] Physician Oncology 01/16/17 Indu Lipscomb (Rn), RN [address] [place] [address] Specialty Principal Process Engineer Hematology/Oncology 01/16/17 No, Referral Referring 03/29/19 Howard Cody MD [address] [place], [place] 4183895 Primary Staff Physician Cardiology 09/07/18 Estefani Bryant MD, MD [address] [place], [place] 08699[address] Physician Radiation Oncology 02/17/20 Kami Toure RN Specialty Principal Process Engineer Oncology 06/29/20 Vikram Gomez MD [address] [place], [place] 6008595 Referring General Surgery 08/20/20 Vikram Gomez MD [address] [place], [place] [phone] Home Care Physician General Surgery 08/20/20 Lesley Oviedo RN [address] [place] [address] Cash Application Representative 02/20/21 Daniela Chan DO [address] [place], [place] [id number] Primary Staff Physician Cardiology 11/19/21 Patient Financial Services Specialist Relationship Specialty Start Date End Date Tala Negron MD [address] [place], [place] 125441 PCP - General Family Practice 01/26/17 J Luis Cid [address] [place] [address] Physician Oncology 01/16/17 Indu Lipscomb (Rn), RN [address] [place], [place] 9257095 Specialty Principal Process Engineer Hematology/Oncology 01/16/17 No, Referral Referring 03/29/19 Howard Cody MD [address] [place], [place] 2412295 Primary Staff Physician Cardiology 09/07/18 Estefani Bryant MD, [address] [place], [place] [id number] Physician Radiation Oncology 02/17/20 Kami Toure, DEE Specialty Principal Process Engineer Oncology 06/29/20 Vikram Gomez MD [address] [place], [place] [phone] Referring General Surgery 08/20/20 Vikram Gomez MD [address] [place] [address] Home Care Physician General Surgery 08/20/20 Lesley Oviedo, RN [address] [place] [address] Cash Application Representative 02/20/21 Daniela Chan DO [address] [place], [place] [id number] Primary Staff Physician Cardiology 11/19/21 Patient Financial Services Specialist Relationship Specialty Start Date End Date Tala Negron MD [address] [place], [place] [id number] PCP - General Family Practice 01/26/17 J Luis Cid [address] [place] [address] Physician Oncology 01/16/17 Indu Lipscomb (Rn), RN [address] [place] [address] Specialty Principal Process Engineer Hematology/Oncology 01/16/17 No, Referral Referring 03/29/19 Howard Cody MD [address] [place], [place] 8646095 Primary Staff Physician Cardiology 09/07/18 Estefani Bryant MD, [address] [place], [place] 64304691 Physician Radiation Oncology 02/17/20 Kami Toure, DEE Specialty Principal Process Engineer Oncology 06/29/20 Vikram Gomez MD [address] [place], [place] [phone] Referring General Surgery 08/20/20 Vikram Gomez MD [address] [place], [place] [phone] Home Care Physician General Surgery 08/20/20 Lesley Oviedo, RN [address] [place], [place] [phone] Cash Application Representative 02/20/21 Daniela Chan DO [address] [place] [address] Primary Staff Physician Cardiology 11/19/21 Patient Financial Services Specialist Relationship Specialty Start Date End Date Tala Negron MD [address] [place], [place] [id number] PCP - General Family Practice 01/26/17 J Luis Cid [address] [place] [address] Physician Oncology 01/16/17 Indu Lipscomb (Rn), RN [address] [place] [address] Specialty Principal Process Engineer Hematology/Oncology 01/16/17 No, Referral Referring 03/29/19 Howard Cody MD [address] [place] [address] Primary Staff Physician Cardiology 09/07/18 Estefani Bryant MD, [address] [place], [place] 18760691 Physician Radiation Oncology 02/17/20 Kami Toure, DEE Specialty Principal Process Engineer Oncology 06/29/20 Vikram Gomez MD [address] [place] [address] Referring General Surgery 08/20/20 Vikram Gomez MD [address] [place] [address] Home Care Physician General Surgery 08/20/20 Lesley Oviedo, RN [address] [place] [address] Cash Application Representative 02/20/21 Daniela Chan DO [address] [place] [address] Primary Staff Physician Cardiology 11/19/21 Patient Financial Services Specialist Relationship Specialty Start Date End Date Tala Negron MD [address] [place], [place] [id number] PCP - General Family Practice 01/26/17 J Luis Cid [address] [place] [address] Physician Oncology 01/16/17 DeisiIndu li (Rn), RN [address] [place], [place] 8309895 Specialty Principal Process Engineer Hematology/Oncology 01/16/17 No, Referral Referring 03/29/19 Howard Cody MD [address] [place] [address] Primary Staff Physician Cardiology 09/07/18 Estefani Bryant MD, [address] [place], [place] 09220691 Physician Radiation Oncology 02/17/20 Kami Toure RN Specialty Principal Process Engineer Oncology 06/29/20 Vikram Gomez MD [address] [place] [address] Referring General Surgery 08/20/20 Vikram Gomez MD [address] [place] [address] Home Care Physician General Surgery 08/20/20 Lesley Oviedo, RN [address] [place] [address] Cash Application Representative 02/20/21 Daniela Chan DO [address] [place], [place] [id number] Primary Staff Physician Cardiology 11/19/21 Patient Financial Services Specialist Relationship Specialty Start Date End Date Tala Negron MD [address] [place], [place] [id number] PCP - General Family Practice 01/26/17 J uLis Cid [address] [place] [address] Physician Oncology 01/16/17 Indu Lipscomb (Rn), RN [address] [place], [place] 1249695 Specialty Principal Process Engineer Hematology/Oncology 01/16/17 No, Referral Referring 03/29/19 Howard Cody MD [address] [place] [address] Primary Staff Physician Cardiology 09/07/18 Estefani Bryant MD, [address] [place], [place] 14437691 Physician Radiation Oncology 02/17/20 Kami Toure, DEE Specialty Principal Process Engineer Oncology 06/29/20 Vikram Gomez MD [address] [place], [place] 8104395 Referring General Surgery 08/20/20 Vikram Gomez MD [address] [place], [place] [phone] Home Care Physician General Surgery 08/20/20 Lesley Oviedo, RN [address] [place] [address] Cash Application Representative 02/20/21 Daniela Chan DO [address] [place], [place] 5007195 Primary Staff Physician Cardiology 11/19/21 Patient Financial Services Specialist Relationship Specialty Start Date End Date Tala Negron MD [address] [place] [address] PCP - General Family Practice 01/26/17 J Luis Cid [address] [place], [place] 2108906 Physician Oncology 01/16/17 Indu Lipscomb (Rn), RN [address] [place], [place] 5250495 Specialty Principal Process Engineer Hematology/Oncology 01/16/17 No, Referral Referring 03/29/19 Howard Cody MD [address] [place] [address] Primary Staff Physician Cardiology 09/07/18 Estefani Bryant MD, [address] [place], [place] 94040691 Physician Radiation Oncology 02/17/20 Kmai Toure, RN Specialty Principal Process Engineer Oncology 06/29/20 Vikram Gomez MD [address] [place] [address] Referring General Surgery 08/20/20 Vikram Gomez MD [address] [place] [address] Home Care Physician General Surgery 08/20/20 Lesley Oviedo, RN [address] [place], [place] [phone] Cash Application Representative 02/20/21 Daniela Chan DO [address] [place] [address] Primary Staff Physician Cardiology 11/19/21 Patient Financial Services Specialist Relationship Specialty Start Date End Date Tala Negron MD [address] [place], [place] [id number] PCP - General Family Practice 01/26/17 J Luis Cid [address] [place] [address] Physician Oncology 01/16/17 Indu Lipscomb (Rn), RN [address] [place] [address] Specialty Principal Process Engineer Hematology/Oncology 01/16/17 No, Referral Referring 03/29/19 Howard Cody MD [address] [place] [address] Primary Staff Physician Cardiology 09/07/18 Estefani Bryant MD, [address] [facility] [place], [place] [phone] Physician Radiation Oncology 02/17/20 Kami Toure, RN Specialty Principal Process Engineer Oncology 06/29/20 Vikram Gomez MD [address] [place] [address] Referring General Surgery 08/20/20 Vikram Gomez MD [address] [place] [address] Home Care Physician General Surgery 08/20/20 Lesley Oviedo, RN [address] [place], [place] [phone] Cash Application Representative 02/20/21 Daniela Chan DO [address] [place] [address] Primary Staff Physician Cardiology 11/19/21 Patient Financial Services Specialist Relationship Specialty Start Date End Date Tala Negron MD [address] [place], [place] [id number] PCP - General Family Practice 01/26/17 J Luis Cid [address] [place] [address] Physician Oncology 01/16/17 Indu Lipscomb (Rn), RN [address] [place], [place] 3453295 Specialty Principal Process Engineer Hematology/Oncology 01/16/17 No, Referral Referring 03/29/19 Howard Cody MD [address] [place] [address] Primary Staff Physician Cardiology 09/07/18 Estefani Bryant MD, MD [address] [place], [place] 14643691 Physician Radiation Oncology 02/17/20 Kami Toure RN Specialty Principal Process Engineer Oncology 06/29/20 Vikram Gomez MD [address] [place] [address] Referring General Surgery 08/20/20 Vikram Gomez MD [address] [place] [address] Home Care Physician General Surgery 08/20/20 Lesley Oviedo, RN [address] [place], [place] [phone] Cash Application Representative 02/20/21 Daniela Chan DO [address] [place] [address] Primary Staff Physician Cardiology 11/19/21 Patient Financial Services Specialist Relationship Specialty [place] [address] [place] [address] [id number] PCP - General Family Practice 01/26/17 J Luis Cid [address] [place] [address] Physician Oncology 01/16/17 Indu Lipscomb (Rn), RN [address] [place] [address] Specialty Principal Process Engineer Hematology/Oncology 01/16/17 No, Referral Referring 03/29/19 Howard Cody MD [address] [place] [address] Primary Staff Physician Cardiology 09/07/18 Estefani Bryant MD, [address] [place], [place] [id number] Physician Radiation Oncology 02/17/20 Kami Toure, RN Specialty Principal Process Engineer Oncology 06/29/20 Vikram Gomez MD [address] [place], [place] [phone] Referring General Surgery 08/20/20 Vikram Gomez MD [address] [place], [place] 7643795 Home Care Physician General Surgery 08/20/20 Lesley Oviedo, RN [address] [place], [place] [phone] Cash Application Representative 02/20/21 Daniela Chan DO [address] [place], [place] 7777895 Primary Staff Physician Cardiology 11/19/21 Patient Financial Services Specialist Relationship Specialty Start Date End Date Tala Negron MD [address] [place], [place] [phone] PCP - General Family Practice 01/26/17 J Luis Cid [address] [place] [address] Physician Oncology 01/16/17 Indu Lipscomb (Rn), RN [address] [place], [place] 2040395 Specialty Principal Process Engineer Hematology/Oncology 01/16/17 No, Referral Referring 03/29/19 Howard Cody MD [address] [place], [place] 7064195 Primary Staff Physician Cardiology 09/07/18 Estefani Bryant MD, [address] [place], [place] 53248691 Physician Radiation Oncology 02/17/20 Kami Toure, RN Specialty Principal Process Engineer Oncology 06/29/20 Vikram Gomez MD [address] [place], [place] 0253095 Referring General Surgery 08/20/20 Vikram Gomez MD [address] [place] [address] Home Care Physician General Surgery 08/20/20 Lesley Oviedo, RN [address] [place] [address] Cash Application Representative 02/20/21 Daniela Chan DO [address] [place] [address] Primary Staff Physician Cardiology 11/19/21 Patient Financial Services Specialist Relationship Specialty Start Date End Date Tala Negron MD [address] [place], [place] [id number] PCP - General Family Practice 01/26/17 J Luis Cid [address] [place], [place] 3069306 Physician Oncology 01/16/17 Indu Lipscomb (Rn), RN [address] [place], [place] 0882295 Specialty Principal Process Engineer Hematology/Oncology 01/16/17 No, Referral Referring 03/29/19 Howard Cody MD [address] [place] [address] Primary Staff Physician Cardiology 09/07/18 Estefani Bryant MD, [address] [place], [place] 44193691 Physician Radiation Oncology 02/17/20 Kami Toure RN Specialty Principal Process Engineer Oncology 06/29/20 Vikram Gomez MD [address] [place] [address] Referring General Surgery 08/20/20 Vikram Gomez MD [address] [place] [address] Home Care Physician General Surgery 08/20/20 Lesley Oviedo RN [address] [place] [address] Cash Application Representative 02/20/21 Daniela Chan DO [address] [place] [address] Primary Staff Physician Cardiology 11/19/21 Patient Financial Services Specialist Relationship Specialty Start Date End Date Tala Negron MD [address] [place], [place] 307111 PCP - General Family Practice 01/26/17 J Luis Cid [address] [place] [address] Physician Oncology 01/16/17 Indu Lipscomb (Rn), RN [address] [place] [address] Specialty Principal Process Engineer Hematology/Oncology 01/16/17 No, Referral Referring 03/29/19 Howard Cody MD [address] [place] [address] Primary Staff Physician Cardiology 09/07/18 Estefani Bryant MD, [address] [place], [place] 96632691 Physician Radiation Oncology 02/17/20 Kami Toure, RN Specialty Principal Process Engineer Oncology 06/29/20 Vikram Gomez MD [address] [place] [address] Referring General Surgery 08/20/20 Vikram Gomez MD [address] [place] [address] Home Care Physician General Surgery 08/20/20 Lesley Oviedo, RN [address] [place] [address] Cash Application Representative 02/20/21 Daniela Chan DO [address] [place] [address] Primary Staff Physician Cardiology 11/19/21 Patient Financial Services Specialist Relationship Specialty Start Date End Date Tala Negron MD [address] [place], [place] [id number] PCP - General Family Medicine 01/26/17 J Luis Cid [address] [place], [place] 0317506 Physician Oncology 01/16/17 Indu Lipscomb (Rn), RN [address] [place] [address] Specialty Principal Process Engineer Hematology/Oncology 01/16/17 No, Referral Referring 03/29/19 Howard Cody MD [address] [place], [place] 0902795 Primary Staff Physician Cardiology 09/07/18 Estefani Bryant MD, [address] [place], [place] 78076691 Physician Radiation Oncology 02/17/20 Kami Toure, DEE Specialty Principal Process Engineer Oncology 06/29/20 Vikram Gomez MD [address] [place], [place] 3838695 Referring General Surgery 08/20/20 Vikram Gomez MD [address] [place] [address] Home Care Provider General Surgery 08/20/20 Lesley Oviedo, RN [address] [place], [place] [phone] Cash Application Representative 02/20/21 Daniela Chan DO [address] [place] [address] Primary Staff Physician Cardiology 11/19/21 Patient Financial Services Specialist Relationship Specialty Start Date End Date Tala Negron MD [address] [place], [place] [id number] PCP - General Family Medicine 01/26/17 J Luis Cid [address] [place] [address] Physician Oncology 01/16/17 Indu Lipscomb (Rn), RN [address] [place] [address] Specialty Principal Process Engineer Hematology/Oncology 01/16/17 No, Referral Referring 03/29/19 Howard Cody MD [address] [place] [address] Primary Staff Physician Cardiology 09/07/18 Estefani Bryant MD, [address] [place], [place] 04708691 Physician Radiation Oncology 02/17/20 Kami Toure, DEE Specialty Principal Process Engineer Oncology 06/29/20 Vikram Gomez MD [address] [place] [address] Referring General Surgery 08/20/20 Vikram Gomez MD [address] [place] [address] Home Care Provider General Surgery 08/20/20 Lesley Oviedo, RN [address] [place] [address] Cash Application Representative 02/20/21 Daniela Chan DO [address] [place] [address] Primary Staff Physician Cardiology 11/19/21 Patient Financial Services Specialist Relationship Specialty Start Date End Date Tala Negron MD [address] [place], [place] [id number] PCP - General Family Medicine 01/26/17 J Luis iCd [address] [place] [address] Physician Oncology 01/16/17 DeisiIndu li (Rn), RN [address] [place], [place] 6477695 Specialty Principal Process Engineer Hematology/Oncology 01/16/17 No, Referral Referring 03/29/19 Howard Cody MD [address] [place] [address] Primary Staff Physician Cardiology 09/07/18 Estefani Bryant MD, [address] [place], [place] 52792691 Physician Radiation Oncology 02/17/20 Kami Toure, DEE Specialty Principal Process Engineer Oncology 06/29/20 Vikram Gomez MD [address] [place] [address] Referring General Surgery 08/20/20 Vikram Gomez MD [address] [place] [address] Home Care Provider General Surgery 08/20/20 Lesley Oviedo, RN [address] [place] [address] Cash Application Representative 02/20/21 Daniela Chan DO [address] [place] [address] Primary Staff Physician Cardiology 11/19/21 Patient Financial Services Specialist Relationship Specialty Start Date End Date Tala Negron MD [address] [place], [place] [id number] PCP - General Family Medicine 01/26/17 J Luis Cid [address] [place] [address] Physician Oncology 01/16/17 Indu Lipscomb (Rn), RN [address] [place], [place] 3901395 Specialty Principal Process Engineer Hematology/Oncology 01/16/17 No, Referral Referring 03/29/19 Howard Cody MD [address] [place], [place] 0444095 Primary Staff Physician Cardiology 09/07/18 Estefani Bryant MD, [address] [place], [place] 25059691 Physician Radiation Oncology 02/17/20 Kami Toure, RN Specialty Principal Process Engineer Oncology 06/29/20 Vikram Gomez MD [address] [place], [place] 7539995 Referring General Surgery 08/20/20 Vikram Gomez MD [address] [place] [address] Home Care Provider General Surgery 08/20/20 Daniela Chan DO [address] [place] [address] Primary Staff Physician Cardiology 11/19/21 Lucas Pastor, DEE [address] [place] [address] Cash Application Representative Family Medicine 02/20/21 Patient Financial Services Specialist Relationship Specialty Start Date End Date Tala Negron MD [address] [place] [address] PCP - General Family Medicine 01/26/17 J Luis Cid [address] [place] [address] Physician Oncology 01/16/17 Indu Lipscomb (Rn), RN [address] [place], [place] 0575495 Specialty Principal Process Engineer Hematology/Oncology 01/16/17 No, Referral Referring 03/29/19 Howard Cody MD [address] [place], [place] 6769595 Primary Staff Physician Cardiology 09/07/18 Estefani Bryant MD, [address] [place], [place] 05861691 Physician Radiation Oncology 02/17/20 Kami Toure, RN Specialty Principal Process Engineer Oncology 06/29/20 Vikram Gomez MD [address] [place], [place] 3288695 Referring General Surgery 08/20/20 Vikram Gomez MD [address] [place], [place] 5543695 Home Care Provider General Surgery 08/20/20 Daniela Chan DO [address] [place], [place] 3256095 Primary Staff Physician Cardiology 11/19/21 Lucas Pastor, DEE [address] [place], [place] 5405031 Cash Application Representative Family Medicine 02/20/21 Patient Financial Services Specialist Relationship Specialty Start Date End Date Tala Negron MD [address] [place], [place] [id number] PCP - General Family Medicine 01/26/17 J Luis Cid [address] [place] [address] Physician Oncology 01/16/17 Indu Lipscomb (Rn), RN [address] [place] [address] Specialty Principal Process Engineer Hematology/Oncology 01/16/17 No, Referral Referring 03/29/19 Howard Cody MD [address] [place] [address] Primary Staff Physician Cardiology 09/07/18 Estefani Bryant MD, [address] [place], [place] 54130691 Physician Radiation Oncology 02/17/20 Kami Toure, RN Specialty Principal Process Engineer Oncology 06/29/20 Vikram Gomez MD [address] [place], [place] 5437995 Referring General Surgery 08/20/20 Vikram Gomez MD [address] [place], [place] 1032195 Home Care Provider General Surgery 08/20/20 Daniela Chan DO [address] [place], [place] 6399095 Primary Staff Physician Cardiology 11/19/21 Lucas Pastor, RN [address] [place], [place] [phone] Cash Application Representative Family Medicine 02/20/21 Patient Financial Services Specialist Relationship Specialty Start Date End Date Tala Negron MD [address] [place], [place] [phone] PCP - General Family Medicine 01/26/17 J Luis Cid [address] [place], [place] 4882006 Physician Oncology 01/16/17 Indu Lipscomb (Rn), RN [address] [place], [place] 1501095 Specialty Principal Process Engineer Hematology/Oncology 01/16/17 No, Referral Referring 03/29/19 Howard Cody MD [address] [place] [address] Primary Staff Physician Cardiology 09/07/18 Estefani Bryant MD, [address] [place], [place] [address]Cale [place], [place] 59546691 Physician Radiation Oncology 02/17/20 Kami Toure RN Specialty Principal Process Engineer Oncology 06/29/20 Vikram Gomez MD [address] [place] [address] Referring General Surgery 08/20/20 Vikram Gomez MD [address] [place], [place] 2181495 Home Care Provider General Surgery 08/20/20 Daniela Chan DO [address] [place], [place] 4354795 Primary Staff Physician Cardiology 11/19/21 Lucas Pastor, RN [address] [place] [address] Cash Application Representative Family Medicine 02/20/21 Patient Financial Services Specialist Relationship Specialty Start Date End Date Tala Negron MD [facility] [place], [place] [id number] PCP - General Family Medicine 01/26/17 J Luis Cid [address] [place] [address] Physician Oncology 01/16/17 Indu Lipscomb (Rn), RN [address] [place], [place] 9121195 Specialty Principal Process Engineer Hematology/Oncology 01/16/17 No, Referral Referring 03/29/19 Howard Cody MD [address] [place], [place] 9228395 Primary Staff Physician Cardiology 09/07/18 Estefani Bryant MD, [address] [facility] [place], [place] 98146[address] Physician Radiation Oncology 02/17/20 Kami Toure, DEE Specialty Principal Process Engineer Oncology 06/29/20 Vikram Gomez MD [address] [place], [place] 4684795 Referring General Surgery 08/20/20 Vikram Gomez MD [address] [place], [place] 7466795 Home Care Provider General Surgery 08/20/20 Daniela Chan DO [address] [place], [place] 6605195 Primary Staff Physician Cardiology 11/19/21 Lucas Pastor, RN [address] [place], [place] 6248831 Cash Application Representative Family Medicine 04/23/22 Patient Financial Services Specialist Relationship Specialty Start Date End Date Tala Negron MD [address] [place], [place] [id number] PCP - General Family Medicine 01/26/17 J Luis Cid [address] [place], [place] 6212106 Physician Oncology 01/16/17 Indu Lipscomb (Rn), RN [address] [place], [place] 0237895 Specialty Principal Process Engineer Hematology/Oncology 01/16/17 No, Referral Referring 03/29/19 Howard Cody MD [address] [place], [place] 6382095 Primary Staff Physician Cardiology 09/07/18 Estefani Bryant MD, [address] [place], [place] [phone] Physician Radiation Oncology 02/17/20 Kami Toure, RN Specialty Principal Process Engineer Oncology 06/29/20 Vikram Gomez MD [address] [place], [place] 0245095 Referring General Surgery 08/20/20 Vikram Gomez MD [address] [place], [place] 1297695 Home Care Provider General Surgery 08/20/20 Daniela Chan DO [address] [place] [address] Primary Staff Physician Cardiology 11/19/21 Lucas Pastor, DEE [address] [place], [place] [phone] Cash Application Representative Family Medicine 04/23/22 Patient Financial Services Specialist Relationship Specialty Start Date End Date Tala Negron MD [address] [place], [place] [id number] PCP - General Family Medicine 01/26/17 J Luis Cid [address] [place] [address] Physician Oncology 01/16/17 Indu Lipscomb (Rn), RN [address] [place] [address] Specialty Principal Process Engineer Hematology/Oncology 01/16/17 No, Referral Referring 03/29/19 Howard Cody MD [address] [place] [address] Primary Staff Physician Cardiology 09/07/18 Estefani Bryant MD, [address] [place], [place] [id number] Physician Radiation Oncology 02/17/20 Kami Toure, DEE Specialty Principal Process Engineer Oncology 06/29/20 Vikram Gomez MD [address] [place], [place] 4003995 Referring General Surgery 08/20/20 Vikram Gomez MD [address] [place] [address] Home Care Provider General Surgery 08/20/20 Daniela Chan DO [address] [place] [address] Primary Staff Physician Cardiology 11/19/21 Lucas Pastor, DEE [address] [place] [address] Cash Application Representative Family Medicine 04/23/22 Patient Financial Services Specialist Relationship Specialty Start Date End Date Tala Negron MD [address] [place], [place] [phone] PCP - General Family Medicine 01/26/17 J Luis Cid [address] [place] [address] Physician Oncology 01/16/17 Indu Lipscomb (Rn), RN [address] [place] [address] Specialty Principal Process Engineer Hematology/Oncology 01/16/17 No, Referral Referring 03/29/19 Howard Cody MD [address] [place] [address] Primary Staff Physician Cardiology 09/07/18 Estefani Bryant MD, [address] [facility] [place], [place] 42457691 Physician Radiation Oncology 02/17/20 Kami Toure, DEE Specialty Principal Process Engineer Oncology 06/29/20 Vikram Gomez MD [address] [place] [address] Referring General Surgery 08/20/20 Vikram Gomez MD [address] [place] [address] Home Care Provider General Surgery 08/20/20 Daniela Chan DO [address] [place] [address] Primary Staff Physician Cardiology 11/19/21 Lucas Pastor, RN [address] [place], [place] [phone] Cash Application Representative Family Medicine 04/23/22 Patient Financial Services Specialist Relationship Specialty Start Date End Date Tala Negron MD [address] [place], [place] [id number] PCP - General Family Medicine 01/26/17 J Luis Cid [address] [place], [place] 3579206 Physician Oncology 01/16/17 Indu Lipscomb (Rn), RN [address] [place], [place] 8141195 Specialty Principal Process Engineer Hematology/Oncology 01/16/17 No, Referral Referring 03/29/19 Howard Cody MD [address] [place] [address] Primary Staff Physician Cardiology 09/07/18 Estefani Bryant MD, [address] [place], [place] [phone] Physician Radiation Oncology 02/17/20 Kami Toure, DEE Specialty Principal Process Engineer Oncology 06/29/20 Vikram Gomez MD [address] [place] [address] Referring General Surgery 08/20/20 Vikram Gomez MD [address] [place] [address] Home Care Provider General Surgery 08/20/20 Daniela Chan DO [address] [place] [address] Primary Staff Physician Cardiology 11/19/21 Lucas Pastor, DEE [address] [place], [place] [phone] Cash Application Representative Family Medicine 04/23/22 Patient Financial Services Specialist Relationship Specialty Start Date End Date Tala Negron MD [address] [place], [place] [phone] PCP - General Family Medicine 01/26/17 J Luis Cid [address] [place] [address] Physician Oncology 01/16/17 DeisiIndu li (Rn), RN [address] [place] [address] Specialty Principal Process Engineer Hematology/Oncology 01/16/17 No, Referral Referring 03/29/19 Howard Cody MD [address] [place] [address] Primary Staff Physician Cardiology 09/07/18 Estefani Bryant MD, [address] [place], [place] 15654691 Physician Radiation Oncology 02/17/20 Kami Toure, DEE Specialty Principal Process Engineer Oncology 06/29/20 Vikram Gomez MD [address] [place] [address] Referring General Surgery 08/20/20 Vikram Gomez MD [address] [place] [address] Home Care Provider General Surgery 08/20/20 Daniela Chan DO [address] [place] [address] Primary Staff Physician Cardiology 11/19/21 Lucas Pastor, DEE [address] [place] [address] Cash Application Representative Family Medicine 04/23/22 Patient Financial Services Specialist Relationship Specialty Start Date End Date Tala Negron MD [address] [place], [place] [id number] PCP - General Family Medicine 01/26/17 J Luis Cid [address] [place] [address] Physician Oncology 01/16/17 Indu Lipscomb (Rn), RN [address] [place] [address] Specialty Principal Process Engineer Hematology/Oncology 01/16/17 No, Referral Referring 03/29/19 Howard Cody MD [address] [place] [address] Primary Staff Physician Cardiology 09/07/18 Estefani Bryant MD, [address] [place], [place] [id number] Physician Radiation Oncology 02/17/20 Kami Toure, DEE Specialty Principal Process Engineer Oncology 06/29/20 Vikram Gomez MD [address] [place], [place] [phone] Referring General Surgery 08/20/20 Vikram Gomez MD [address] [place], [place] [phone] Home Care Provider General Surgery 08/20/20 Daniela Chan DO [address] [place], [place] 1628595 Primary Staff Physician Cardiology 11/19/21 Lucas Pastor, DEE [address] [place] [address] Cash Application Representative Family Medicine 04/23/22 Patient Financial Services Specialist Relationship Specialty Start Date End Date Tala Negron MD [address] [place] [address] PCP - General Family Medicine 01/26/17 J Luis Cid [address] [place] [address] Physician Oncology 01/16/17 Indu Lipscomb (Rn), RN [address] [place] [address] Specialty Principal Process Engineer Hematology/Oncology 01/16/17 No, Referral Referring 03/29/19 Howard Cody MD [address] [place] [address] Primary Staff Physician Cardiology 09/07/18 Estefani Bryant MD, [address] [place], [place] [phone] Physician Radiation Oncology 02/17/20 Kami Toure, RN Specialty Principal Process Engineer Oncology 06/29/20 Vikram Gomez MD [address] [place], [place] [phone] Referring General Surgery 08/20/20 Vikram Gomez MD [address] [place] [address] Home Care Provider General Surgery 08/20/20 Daniela Chan DO [address] [place], [place] 0862795 Primary Staff Physician Cardiology 11/19/21 Lucas Pastor, RN [address] [place], [place] [phone] Cash Application Representative Family Medicine 04/23/22 Patient Financial Services Specialist Relationship Specialty Start Date End Date Tala Negron MD [address] [place], [place] [id number] PCP - General Family Medicine 01/26/17 J Luis Cid [address] [place] [address] Physician Oncology 01/16/17 Indu Lipscomb (Rn), RN [address] [place], [place] [id number] Specialty Principal Process Engineer Hematology/Oncology 01/16/17 No, Referral Referring 03/29/19 Howard Cody MD [address] [place], [place] 9412895 Primary Staff Physician Cardiology 09/07/18 Estefani Bryant MD, [address] [facility] [place] [address] Physician Radiation Oncology 02/17/20 Kami Toure RN Specialty Principal Process Engineer Oncology 06/29/20 Vikram Gomez MD [address] [place] [address] Referring General Surgery 08/20/20 Vikram Gomez MD [address] [place] [address] Home Care Provider General Surgery 08/20/20 Daniela Chan DO [address] [place], [place] 3499995 Primary Staff Physician Cardiology 11/19/21 Lucas Pastor, DEE [address] [place], [place] [phone] Cash Application Representative Family Medicine 04/23/22 Patient Financial Services Specialist Relationship Specialty Start Date End Date Tala Negron MD [address] [place], [place] [id number] PCP - General Family Medicine 01/26/17 J Luis Cid [address] [place] [address] Physician Oncology 01/16/17 Indu Lipscomb (Rn), RN [address] [place], [place] 6608895 Specialty Principal Process Engineer Hematology/Oncology 01/16/17 No, Referral Referring 03/29/19 Howard Cody MD [address] [place] [address] Primary Staff Physician Cardiology 09/07/18 Estefani Bryant MD, [address] [place] [address] [id number] Physician Radiation Oncology 02/17/20 Kami Toure RN Specialty Principal Process Engineer Oncology 06/29/20 Vikram Gomez MD [address] [place], [place] [phone] Referring General Surgery 08/20/20 Vikram Gomez MD [address] [place] [address] Home Care Provider General Surgery 08/20/20 Daniela Chan DO [address] [place], [place] 5388495 Primary Staff Physician Cardiology 11/19/21 Lucas Pastor, DEE [address] [place], [place] [phone] Cash Application Representative Family Medicine 04/23/22 Patient Financial Services Specialist Relationship Specialty Start Date End Date Tala Negron MD [address] [place], [place] [id number] PCP - General Family Medicine 01/26/17 J Luis Cid [address] [place] [address] Physician Oncology 01/16/17 Indu Lipscomb (Rn), RN [address] [place], [place] 0776795 Specialty Principal Process Engineer Hematology/Oncology 01/16/17 No, Referral Referring 03/29/19 Howard Cody MD [address] [place], [place] 3772395 Primary Staff Physician Cardiology 09/07/18 Estefani Bryant MD, [address] [place], [place] [id number] Physician Radiation Oncology 02/17/20 Kami Toure, RN Specialty Principal Process Engineer Oncology 06/29/20 Vikram Gomez MD [address] [place], [place] [phone] Referring General Surgery 08/20/20 Vikram Gomez MD [address] [place], [place] 4202195 Home Care Provider General Surgery 08/20/20 Daniela Chan DO [address] [place] [address] Primary Staff Physician Cardiology 11/19/21 Lucas Pastor, RN [address] [place], [place] [phone] Cash Application Representative Family Medicine 04/23/22 Patient Financial Services Specialist Relationship Specialty Start Date End Date Tala Negron MD [address] [place], [place] [id number] PCP - General Family Medicine 01/26/17 J Luis Cid [address] [place], [place] 3779606 Physician Oncology 01/16/17 DeisiIndu li (Rn), RN [address] [place], [place] [id number] Specialty Principal Process Engineer Hematology/Oncology 01/16/17 No, Referral Referring 03/29/19 Howard Cody MD [address] [place] [address] Primary Staff Physician Cardiology 09/07/18 Estefani Bryant MD, [address] [place], [place] [phone] Physician Radiation Oncology 02/17/20 Kami Toure, RN Specialty Principal Process Engineer Oncology 06/29/20 Vikram Gomez MD [address] [place] [address] Referring General Surgery 08/20/20 Vikram Gomez MD [address] [place] [address] Home Care Provider General Surgery 08/20/20 Daniela Chan DO [address] [place] [address] Primary Staff Physician Cardiology 11/19/21 Lucas Pastor, DEE [address] [place], [place] [phone] Cash Application Representative Family Medicine 04/23/22 Patient Financial Services Specialist Relationship Specialty Start Date End Date Tala Negron MD [address] [place], [place] [phone] PCP - General Family Medicine 01/26/17 J Luis Cid [address] [place], [place] 2640206 Physician Oncology 01/16/17 Indu Lipscomb (Rn), RN [address] [place] [address] Specialty Principal Process Engineer Hematology/Oncology 01/16/17 No, Referral Referring 03/29/19 Howard Cody MD [address] [place], [place] 5672395 Primary Staff Physician Cardiology 09/07/18 Estefani Bryant MD, [address] [place], [place] 14210691 Physician Radiation Oncology 02/17/20 Kami Toure, DEE Specialty Principal Process Engineer Oncology 06/29/20 Vikram Gomez MD [address] [place] [address] Referring General Surgery 08/20/20 Vikram Gomez MD [address] [place] [address] Home Care Provider General Surgery 08/20/20 Daniela Chan DO [address] [place] [address] Primary Staff Physician Cardiology 11/19/21 Lucas Pastor, DEE [address] [place], [place] [phone] Cash Application Representative Family Medicine 04/23/22 Patient Financial Services Specialist Relationship Specialty Start Date End Date Tala Negron MD [address] [place], [place] [id number] PCP - General Family Medicine 01/26/17 J Luis Cid [address] [place] [address] Physician Oncology 01/16/17 [facility] RN [address] [place] [address] Specialty Principal Process Engineer Hematology/Oncology 01/16/17 No, Referral Referring 03/29/19 Howard Cody MD [address] [place] [address] Primary Staff Physician Cardiology 09/07/18 Estefani Bryant MD, [address] [place], [place] 00468691 Physician Radiation Oncology 02/17/20 Kami Toure, DEE Specialty Principal Process Engineer Oncology 06/29/20 Vikram Gomez MD [address] [place] [address] Referring General Surgery 08/20/20 Vikram Gomez MD [address] [place] [address] Home Care Provider General Surgery 08/20/20 Daniela Chan DO [address] [place] [address] Primary Staff Physician Cardiology 11/19/21 Lucas Pastor, RN [address] [place], [place] 9770031 Cash Application Representative Family Medicine 04/23/22 Patient Financial Services Specialist Relationship Specialty Start Date End Date Tala Negron MD [address] [place], [place] [phone] PCP - General Family Medicine 01/26/17 J Luis Cid [address] [place], [place] 2868006 Physician Oncology 01/16/17 Indu Lipscomb (Rn), RN [address] [place] [address] Specialty Principal Process Engineer Hematology/Oncology 01/16/17 No, Referral Referring 03/29/19 Howard Cody MD [address] [place], [place] 1551395 Primary Staff Physician Cardiology 09/07/18 Estefani Bryant MD, [address] [place], [place] [id number] Physician Radiation Oncology 02/17/20 Kami Toure, DEE Specialty Principal Process Engineer Oncology 06/29/20 Vikram Gomez MD [address] [place] [address] Referring General Surgery 08/20/20 Vikram Gomez MD [address] [place] [address] Home Care Provider General Surgery 08/20/20 Daniela Chan DO [address] [place] [address] Primary Staff Physician Cardiology 11/19/21 Lucas Pastor, DEE [address] [place] [address] Cash Application Representative Family Medicine 04/23/22 Patient Financial Services Specialist Relationship Specialty Start Date End Date Tala Negron MD [address] [place], [place] [phone] PCP - General Family Medicine 01/26/17 J Luis Cid [address] [place] [address] Physician Oncology 01/16/17 Indu Lipscomb (Rn), RN [address] [place] [address] Specialty Principal Process Engineer Hematology/Oncology 01/16/17 No, Referral Referring 03/29/19 Howard Cody MD [address] [place] [address] Primary Staff Physician Cardiology 09/07/18 Estefani Bryant MD, [address] [place], [place] [id number] Physician Radiation Oncology 02/17/20 Kami Toure RN Specialty Principal Process Engineer Oncology 06/29/20 Vikram Gomez MD [address] [place] [address] Referring General Surgery 08/20/20 Vikram Gomez MD [address] [place] [address] Home Care Provider General Surgery 08/20/20 Daniela Chan DO [address] [place] [address] Primary Staff Physician Cardiology 11/19/21 Lucas Pastor, DEE [address] [place] [address] Cash Application Representative Family Medicine 04/23/22 Patient Financial Services Specialist Relationship Specialty Start Date End Date Tala Negron MD [address] [place], [place] [phone] PCP - General Family Medicine 01/26/17 J Luis Cid [address] [place] [address] Physician Oncology 01/16/17 Indu Lipscomb (Rn), RN [address] [place], [place] 2881995 Specialty Principal Process Engineer Hematology/Oncology 01/16/17 No, Referral Referring 03/29/19 Howard Cody MD [address] [place] [address] Primary Staff Physician Cardiology 09/07/18 Estefani Bryant MD, [address] [place] [address] Physician Radiation Oncology 02/17/20 Kami Toure, DEE Specialty Principal Process Engineer Oncology 06/29/20 Vikram Gomez MD [address] [place], [place] 2550195 Referring General Surgery 08/20/20 Vikram Gomez MD [address] [place], [place] 0403095 Home Care Provider General Surgery 08/20/20 Daniela Chan DO [address] [place] [address] Primary Staff Physician Cardiology 11/19/21 Lucas Pastor, RN [address] [place], [place] 7373231 Cash Application Representative Family Medicine 04/23/22 Patient Financial Services Specialist Relationship Specialty Start Date End Date Tala Negron MD [address] [place] [address] PCP - General Family Medicine 01/26/17 J Luis Cid [address] [place], [place] 6620106 Physician Oncology 01/16/17 Indu Lipscomb (Rn), RN [address] [place], [place] 9449995 Specialty Principal Process Engineer Hematology/Oncology 01/16/17 No, Referral Referring 03/29/19 Howard Cody MD [address] [place] [address] Primary Staff Physician Cardiology 09/07/18 Estefani Bryant MD, [address] [place], [place] [id number] Physician Radiation Oncology 02/17/20 Kami Toure, RN Specialty Principal Process Engineer Oncology 06/29/20 Vikram Gomez MD [address] [place] [address] Referring General Surgery 08/20/20 Vikram Gomez MD [address] [place], [place] 3943995 Home Care Provider General Surgery 08/20/20 Daniela Chan DO [address] [place], [place] 8521995 Primary Staff Physician Cardiology 11/19/21 Lucas Pastor, RN [address] [place], [place] 8633331 Cash Application Representative Family Medicine 04/23/22 Patient Financial Services Specialist Relationship Specialty Start Date End Date Tala Negron MD [address] [place], [place] [phone] PCP - General Family Medicine 01/26/17 J Luis Cid Physician Oncology 01/16/17 Indu Lipscomb (Rn), RN [address] [place], [place] [id number] Specialty Principal Process Engineer Hematology/Oncology 01/16/17 No, Referral Referring 03/29/19 Howard Cody MD [address] [place] [address] Primary Staff Physician Cardiology 09/07/18 Estefani Bryant MD, [address] [place], [place] 82920691 Physician Radiation Oncology 02/17/20 Kami Toure, RN Specialty Principal Process Engineer Oncology 06/29/20 Vikram Gomez MD [address] [place] [address] Referring General Surgery 08/20/20 Vikram Gomez MD [address] [place] [address] Home Care Provider General Surgery 08/20/20 Daniela Chan DO [address] [place], [place] 9034895 Primary Staff Physician Cardiology 11/19/21 Lucas Pastor, DEE [address] [place], [place] [phone] Cash Application Representative Family Medicine 04/23/22 Patient Financial Services Specialist Relationship Specialty Start Date End Date Tala Negron MD [address] [place], [place] [id number] PCP - General Family Medicine 01/26/17 J Luis Cid Physician Oncology 01/16/17 Indu Lipscomb (Rn), RN [address] [place] [address] Specialty Principal Process Engineer Hematology/Oncology 01/16/17 No, Referral Referring 03/29/19 Howard Cody MD [address] [place] [address] Primary Staff Physician Cardiology 09/07/18 Estefani Bryant MD, [address] [place], [place] [id number] Physician Radiation Oncology 02/17/20 Kami Toure, RN Specialty Principal Process Engineer Oncology 06/29/20 Vikram Gomez MD [address] [place] [address] Referring General Surgery 08/20/20 Vikram Gomez MD [address] [place], [place] 3925495 Home Care Provider General Surgery 08/20/20 Daniela Chan DO [address] [place] [address] Primary Staff Physician Cardiology 11/19/21 Lucas Pastor, DEE [address] [place] [address] [phone] Cash Application Representative Family Medicine 04/23/22 Patient Financial Services Specialist Relationship Specialty Start Date End Date Tala Negron MD [address] [place], [place] [phone] PCP - General Family Medicine 01/26/17 J Luis Cid Physician Oncology 01/16/17 Indu Lipscomb (Rn), RN [address] [place], [place] 9674595 Specialty Principal Process Engineer Hematology/Oncology 01/16/17 No, Referral Referring 03/29/19 Howard Cody MD [address] [place], [place] 4845895 Primary Staff Physician Cardiology 09/07/18 Estefani Bryant MD, [address] [place], [place] 16773691 Physician Radiation Oncology 02/17/20 Kami Toure, RN Specialty Principal Process Engineer Oncology 06/29/20 Vikram Gomez MD [address] [place], [place] 3897695 Referring General Surgery 08/20/20 Vikram Gomez MD [address] [place], [place] 7994095 Home Care Provider General Surgery 08/20/20 Daniela Chan DO [address] [place], [place] 2157295 Primary Staff Physician Cardiology 11/19/21 Lucas Pastor, RN [address] [place] [address] Cash Application Representative Family Medicine 04/23/22 Patient Financial Services Specialist Relationship Specialty Start Date End Date Tala Negron MD [address] [place], [place] [phone] PCP - General Family Medicine 01/26/17 J Luis Cid Physician Oncology 01/16/17 DeisiIndu li (Rn), RN [address] [place] [address] Specialty Principal Process Engineer Hematology/Oncology 01/16/17 No, Referral Referring 03/29/19 Howard Cody MD [address] [place] [address] Primary Staff Physician Cardiology 09/07/18 Estefani Bryant MD, [address] [place], [place] 67291691 Physician Radiation Oncology 02/17/20 Kami Toure, DEE Specialty Principal Process Engineer Oncology 06/29/20 Vikram Gomez MD [address] [place] [address] Referring General Surgery 08/20/20 Vikram Gomez MD [address] [place] [address] Home Care Provider General Surgery 08/20/20 Daniela Chan DO [address] [place] [address] Primary Staff Physician Cardiology 11/19/21 Lucas Pastor RN [address] [place] [address] Cash Application Representative Family Medicine 04/23/22 Patient Financial Services Specialist Relationship Specialty Start Date End Date Tala Negron MD [address] [place], [place] [phone] PCP - General Family Medicine 01/26/17 J Luis Cid Physician Oncology 01/16/17 Indu Lipscomb (Rn), RN [address] [place], [place] 1650495 Specialty Principal Process Engineer Hematology/Oncology 01/16/17 No, Referral Referring 03/29/19 Howard Cody MD [address] [place], [place] 8402395 Primary Staff Physician Cardiology 09/07/18 Estefani Bryant MD, [address] [facility] [place], [place] 01706691 Physician Radiation Oncology 02/17/20 Kami Toure, DEE Specialty Principal Process Engineer Oncology 06/29/20 Vikram Gomez MD [address] [place] [address] Referring General Surgery 08/20/20 Vikram Gomez MD [address] [place] [address] Home Care Provider General Surgery 08/20/20 Daniela Chan DO [address] [place], [place] 3603695 Primary Staff Physician Cardiology 11/19/21 Lucas Pastor, RN [address] [place], [place] [phone] Cash Application Representative Family Medicine 04/23/22 Patient Financial Services Specialist Relationship Specialty Start Date End Date Tala Negron MD [address] [place], [place] [phone] PCP - General Family Medicine 01/26/17 J Luis Cid Physician Oncology 01/16/17 Indu Lipscomb (Rn), RN [address] [facility], [place] [id number] Specialty Principal Process Engineer Hematology/Oncology 01/16/17 No, Referral Referring 03/29/19 Howard Cody MD [address] [place], [place] 3824195 Primary Staff Physician Cardiology 09/07/18 Estefani Bryant MD, [address] [place] [address] Physician Radiation Oncology 02/17/20 Kami Toure RN Specialty Principal Process Engineer Oncology 06/29/20 Vikram Gomez MD [address] [place], [place] 7008095 Referring General Surgery 08/20/20 Vikram Gomez MD [address] [place] [address] Home Care Provider General Surgery 08/20/20 Daniela Chan DO [address] [place], [place] 5340295 Primary Staff Physician Cardiology 11/19/21 Lucas Pastor, RN [address] [place] [address] Cash Application Representative Family Medicine 04/23/22 Patient Financial Services Specialist Relationship Specialty Start Date End Date Tala Negron MD [address] [place] [address] PCP - General Family Medicine 01/26/17 J Luis Cid Physician Oncology 01/16/17 Indu Lipscomb (Rn), RN [address] [place] [address] Specialty Principal Process Engineer Hematology/Oncology 01/16/17 No, Referral Referring 03/29/19 Howard Cody MD [address] [place] [address] Primary Staff Physician Cardiology 09/07/18 Estefani Bryant MD, [address] [place], [place] 23470691 Physician Radiation Oncology 02/17/20 Kami Toure, RN Specialty Principal Process Engineer Oncology 06/29/20 Vikram Gomez MD [address] [place], [place] 4651895 Referring General Surgery 08/20/20 Vikram Gomez MD [address] [place], [place] 2301895 Home Care Provider General Surgery 08/20/20 Daniela Chan DO [address] [place], [place] 2986395 Primary Staff Physician Cardiology 11/19/21 Lucas Pastor, DEE [address] [place], [place] [phone] Cash Application Representative Family Medicine 04/23/22 Patient Financial Services Specialist Relationship Specialty Start Date End Date Tala Negron MD [address] [place], [place] [phone] PCP - General Family Medicine 01/26/17 J Luis Cid Physician Oncology 01/16/17 Indu Lipscomb (Rn), RN [address] [place], [place] 2436995 Specialty Principal Process Engineer Hematology/Oncology 01/16/17 No, Referral Referring 03/29/19 Howard Cody MD [address] [place], [place] 6286995 Primary Staff Physician Cardiology 09/07/18 Estefani Bryant MD, [address] [place], [place] [phone] Physician Radiation Oncology 02/17/20 Kami Toure, RN Specialty Principal Process Engineer Oncology 06/29/20 Vikram Gomez MD [address] [place], [place] 8665695 Referring General Surgery 08/20/20 Vikram Gomez MD [address] [place], [place] 2080495 Home Care Provider General Surgery 08/20/20 Daniela Chan DO [address] [place], [place] 9942295 Primary Staff Physician Cardiology 11/19/21 Lucas Pastor, DEE [address] [place], [place] [phone] Cash Application Representative Family Medicine 04/23/22 Patient Financial Services Specialist Relationship Specialty Start Date End Date Tala Negron MD [address] [place], [place] [phone] PCP - General Family Medicine 01/26/17 J Luis Cid Physician Oncology 01/16/17 Indu Lipscomb (Rn), RN [address] [place], [place] 4727295 Specialty Principal Process Engineer Hematology/Oncology 01/16/17 No, Referral Referring 03/29/19 Howard Cody MD [address] [place], [place] 8794195 Primary Staff Physician Cardiology 09/07/18 Estefani Bryant MD, [address] [place], [place] 95326691 Physician Radiation Oncology 02/17/20 Kami Toure, RN Specialty Principal Process Engineer Oncology 06/29/20 Vikram Gomez MD [address] [place] [address] Referring General Surgery 08/20/20 Vikram Gomez MD [address] [place], [place] 9538195 Home Care Provider General Surgery 08/20/20 Daniela Chan DO [address] [place], [place] 4270395 Primary Staff Physician Cardiology 11/19/21 Lucas Pastor, RN [address] [place], [place] [phone] Cash Application Representative Family Medicine 04/23/22 Patient Financial Services Specialist Relationship Specialty Start Date End Date Tala Negron MD [address] [place], [place] [id number] PCP - General Family Medicine 01/26/17 J Luis Cid Physician Oncology 01/16/17 DeisiIndu il (Rn), RN [address] [place], [place] 7366095 Specialty Principal Process Engineer Hematology/Oncology 01/16/17 No, Referral Referring 03/29/19 Howard Cody MD [address] [place], [place] 3500195 Primary Staff Physician Cardiology 09/07/18 Estefani Bryant MD, MD [address] [place] [place], [place] 949511 Physician Radiation Oncology 02/17/20 Kami Toure, DEE Specialty Principal Process Engineer Oncology 06/29/20 Vikram Gomez MD [address] [place] [address] Referring General Surgery 08/20/20 Vikram Gomez MD [address] [place] [address] Home Care Provider General Surgery 08/20/20 Daniela Chan DO [address] [facility] [place] [place] 0939395 Primary Staff Physician Cardiology 11/19/21 Lucas Pastor, DEE [address] [place], [place] [phone] Cash Application Representative Family Medicine 04/23/22 Patient Financial Services Specialist Relationship Specialty Start Date End Date Tala Negron MD [address] [place], [place] [id number] PCP - General Family Medicine 01/26/17 J Luis Cid Physician Oncology 01/16/17 Indu Lipscomb (Rn), RN [address] [place], [place] 0517895 Specialty Principal Process Engineer Hematology/Oncology 01/16/17 No, Referral Referring 03/29/19 Howard Cody MD [address] [place] [address] Primary Staff Physician Cardiology 09/07/18 Estefani Bryant MD, MD [address] [place], [place] 637981 Physician Radiation Oncology 02/17/20 Kami Toure RN Specialty Principal Process Engineer Oncology 06/29/20 Vikram Gomez MD [address] [place], [place] 0671195 Referring General Surgery 08/20/20 Vikram Gomez MD [address] [place] [address] Home Care Provider General Surgery 08/20/20 Daniela Chan DO [address] [place] [address] Primary Staff Physician Cardiology 11/19/21 Lucas Pastor, RN [address] [place] [address] Cash Application Representative Family Medicine 04/23/22 Patient Financial Services Specialist Relationship Specialty Start Date End Date Tala Negron MD [address] [place], [place] [phone] PCP - General Family Medicine 01/26/17 J Luis Cid Physician Oncology 01/16/17 Indu Lipscomb (Rn), RN [address] [place] [address] Specialty Principal Process Engineer Hematology/Oncology 01/16/17 No, Referral Referring 03/29/19 Howard Cody MD [address] [place] [address] Primary Staff Physician Cardiology 09/07/18 Estefani Bryant MD, MD [address] [place], [place] 12883691 Physician Radiation Oncology 02/17/20 Kami Toure RN Specialty Principal Process Engineer Oncology 06/29/20 Vikram Gomez MD [address] [place] [address] Referring General Surgery 08/20/20 Vikram Gomez MD [address] [place] [address] Home Care Provider General Surgery 08/20/20 Daniela Chan DO [address] [place], [place] 5956595 Primary Staff Physician Cardiology 11/19/21 Lucas Pastor, RN [address] [place] [address] Cash Application Representative Family Medicine 04/23/22 Patient Financial Services Specialist Relationship Specialty Start Date End Date Tala Negron MD [address] [place], [place] [id number] PCP - General Family Medicine 01/26/17 J Luis Cid Physician Oncology 01/16/17 Indu Lipscomb (Rn), RN [address] [place] [address] Specialty Principal Process Engineer Hematology/Oncology 01/16/17 No, Referral Referring 03/29/19 Howard Cody MD [address] [place], [place] 6071895 Primary Staff Physician Cardiology 09/07/18 Estefani rByant MD, MD [address], [place] [id number] Physician Radiation Oncology 02/17/20 Kami Toure RN Specialty Principal Process Engineer Oncology 06/29/20 Vikram Gomez MD [address] [place] [address] Referring General Surgery 08/20/20 Vikram Gomez MD [address] [place] [address] Home Care Provider General Surgery 08/20/20 Daniela Chan DO [address] [place] [id number] Primary Staff Physician Cardiology 11/19/21 Lucas Pastor, RN [address] [place] [address] Cash Application Representative Family Medicine 04/23/22 Patient Financial Services Specialist Relationship Specialty Start Date End Date Tala Negron MD [address] [place] [address] PCP - General Family Medicine 01/26/17 J Luis Cid Physician Oncology 01/16/17 Indu Lipscomb (Rn), RN [address] [place] [place] [id number] Specialty Principal Process Engineer Hematology/Oncology 01/16/17 No, Referral Referring 03/29/19 Howard Cody MD [address] [place] [address] Primary Staff Physician Cardiology 09/07/18 Estefani Bryant MD, MD [address] [place] [address] Physician Radiation Oncology 02/17/20 Kami Toure RN Specialty Principal Process Engineer Oncology 06/29/20 Vikram Gomez MD [address] [place] [id number] Referring General Surgery 08/20/20 Vikram Gomez MD [address] [place] [address] Home Care Provider General Surgery 08/20/20 Daniela Chan DO [address] [place] [id number] Primary Staff Physician Cardiology 11/19/21 Lucas Pastor, RN [address] [place], [place] [phone] Cash Application Representative Family Medicine 04/23/22 Patient Financial Services Specialist Relationship Specialty Start Date End Date Tala Negron MD [address] [place], [place] [id number] PCP - General Family Medicine 01/26/17 J Luis Cid Physician Oncology 01/16/17 DeisiIndu li (Rn), RN [address] [place] [address] Specialty Principal Process Engineer Hematology/Oncology 01/16/17 No, Referral Referring 03/29/19 Howard Cody MD [address] [place], [place] 3118395 Primary Staff Physician Cardiology 09/07/18 Estefani Bryant MD, MD [address], [place] [id number] Physician Radiation Oncology 02/17/20 Kami Toure RN Specialty Principal Process Engineer Oncology 06/29/20 Vikram Gomez MD [address] [place] [address] Referring General Surgery 08/20/20 Vikram Gomez MD [address] [place] [address] Home Care Provider General Surgery 08/20/20 Daniela Chan DO [address] [place] [place], [place] [id number] Primary Staff Physician Cardiology 11/19/21 Lucas Pastor, DEE [address] [place] [address] Cash Application Representative Family Medicine 04/23/22 Patient Financial Services Specialist Relationship Specialty Start Date End Date Tala Negron MD [address] [place], [place] 601431 PCP - General Family Medicine 01/26/17 J Luis Cid Physician Oncology 01/16/17 Indu Lipscomb (Rn), RN [address] [place], [place] 5887395 Specialty Principal Process Engineer Hematology/Oncology 01/16/17 No, Referral Referring 03/29/19 Howard Cody MD [address] [place], [place] 0960195 Primary Staff Physician Cardiology 09/07/18 Estefani Bryatn MD, MD [address], [place] 90034691 Physician Radiation Oncology 02/17/20 Kami Toure RN Specialty Principal Process Engineer Oncology 06/29/20 Vikram Gomez MD [address] [place], [place] [phone] Referring General Surgery 08/20/20 Vikram Gomez MD [address] [place], [place] 1487895 Home Care Provider General Surgery 08/20/20 Daniela Chan DO [address] [place] [address] Primary Staff Physician Cardiology 11/19/21 Lucas Pastor RN [address] [place] [address] Cash Application Representative Family Medicine 04/23/22 Patient Financial Services Specialist Relationship Specialty Start Date End Date Tala Negron MD [address] [place], [place] [id number] PCP - General Family Medicine 01/26/17 J Luis Cid Physician Oncology 01/16/17 Indu Lipscomb (Rn), RN [address] [place], [place] 1607495 Specialty Principal Process Engineer Hematology/Oncology 01/16/17 No, Referral Referring 03/29/19 Howard Cody MD [address] [place], [place] 8717095 Primary Staff Physician Cardiology 09/07/18 Estefani Bryant MD, [address] [place], [place] [phone] Physician Radiation Oncology 02/17/20 Kami Toure RN Specialty Principal Process Engineer Oncology 06/29/20 Vikram Gomez MD [address] [place], [place] [phone] Referring General Surgery 08/20/20 Vikram Gomez MD [address] [place], [place] [phone] Home Care Provider General Surgery 08/20/20 Daniela Chan DO [address] [place], [place] 7476995 Primary Staff Physician Cardiology 11/19/21 Lucas Pastor, RN [address] [place], [place] [phone] Cash Application Representative Family Medicine 04/23/22 Patient Financial Services Specialist Relationship Specialty Start Date End Date Tala Negron MD [address] [place], [place] 256521 PCP - General Family Medicine 01/26/17 J Luis Cid Physician Oncology 01/16/17 Indu Lipscomb (Rn), RN [address] [place] [place], [place] 3486695 Specialty Principal Process Engineer Hematology/Oncology 01/16/17 No, Referral Referring 03/29/19 Howard Cody MD [address] [place], [place] 7969495 Primary Staff Physician Cardiology 09/07/18 Estefani Bryant MD, [address] [place], [place] 55966691 Physician Radiation Oncology 02/17/20 Kami Toure RN Specialty Principal Process Engineer Oncology 06/29/20 Vikram Gomez MD [address] [place] [place], [place] [phone] Referring General Surgery 08/20/20 Vikram Gomez MD [address] [place] [place], [place] 3914795 Home Care Provider General Surgery 08/20/20 Daniela Chan DO [address] [place], [place] 1834895 Primary Staff Physician Cardiology 11/19/21 Lucas Pastor, DEE [address] [place], [place] 1626531 Cash Application Representative Family Medicine 04/23/22 Patient Financial Services Specialist Relationship Specialty Start Date End Date Tala Negron MD [address] [place], [place] 651781 PCP - General Family Medicine 01/26/17 J Luis Cid Physician Oncology 01/16/17 Indu Lipscomb (Rn), RN [address] [facility] [place] 1777395 Specialty Principal Process Engineer Hematology/Oncology 01/16/17 No, Referral Referring 03/29/19 Howard Cody MD [address] [place], [place] 1048295 Primary Staff Physician Cardiology 09/07/18 Estefani Bryant MD, MD [address] [place], [place] 303871 Physician Radiation Oncology 02/17/20 Kami Toure RN Specialty Principal Process Engineer Oncology 06/29/20 Vikram Gomez MD [address] [place], [place] [phone] Referring General Surgery 08/20/20 Vikram Gomez MD [address] [place], [place] 4744295 Home Care Provider General Surgery 08/20/20 Daniela Chan DO [address] [place] [address] Primary Staff Physician Cardiology 11/19/21 Lucas Pastor, DEE [address] [place], [place] 1026231 Cash Application Representative Family Medicine 04/23/22 Patient Financial Services Specialist Relationship Specialty Start Date End Date Tala Negron MD [address] [place], [place] 994331 PCP - General Family Medicine 01/26/17 J Luis Cid Physician Oncology 01/16/17 Indu Lipscomb (Rn), RN [address] [place], [place] 0924695 Specialty Principal Process Engineer Hematology/Oncology 01/16/17 No, Referral Referring 03/29/19 Howard Cody MD [address] [place], [place] 3178595 Primary Staff Physician Cardiology 09/07/18 Estefani Bryant MD, MD [address] [place] [address] Physician Radiation Oncology 02/17/20 Kami Toure RN Specialty Principal Process Engineer Oncology 06/29/20 Vikram Gomez MD [address] [place] [address] Referring General Surgery 08/20/20 Vikram Gomez MD [address] [place], [place] 8310895 Home Care Provider General Surgery 08/20/20 Daniela Chan DO [address] [place], [place] 9574795 Primary Staff Physician Cardiology 11/19/21 Lucas Pastor, RN [address] [place] [address] Cash Application Representative Family Medicine 04/23/22 Patient Financial Services Specialist Relationship Specialty Start Date End Date Tala Negron MD [address] [place], [place] [phone] PCP - General Family Medicine 01/26/17 J Luis Cid Physician Oncology 01/16/17 DeisiIndu li (Rn), RN [address] [facility] [place] 6045595 Specialty Principal Process Engineer Hematology/Oncology 01/16/17 No, Referral Referring 03/29/19 Howard Cody MD [address] [place], [place] 4409295 Primary Staff Physician Cardiology 09/07/18 Estefani Bryant MD, MD [address], [place] 80838691 Physician Radiation Oncology 02/17/20 Kami Toure RN Specialty Principal Process Engineer Oncology 06/29/20 Vikram Gomez MD [address] [place], [place] [phone] Referring General Surgery 08/20/20 Vikram Gomez MD [address] [place], [place] 0534495 Home Care Provider General Surgery 08/20/20 Daniela Chan DO [address] [facility] [place] 2997495 Primary Staff Physician Cardiology 11/19/21 Lucas Pastor, RN [address] [place], [place] [phone] Cash Application Representative Family Medicine 04/23/22 Patient Financial Services Specialist Relationship Specialty Start Date End Date Tala Negron MD [address] [place] [address] [id number] PCP - General Family Medicine 01/26/17 J Luis Cid Physician Oncology 01/16/17 DeisiIndu li (Rn), RN [address] [place] [address] Specialty Principal Process Engineer Hematology/Oncology 01/16/17 No, Referral Referring 03/29/19 Howard Cody MD [address] [place], [place] 3023195 Primary Staff Physician Cardiology 09/07/18 Estefani Bryant MD, MD [address] [place], [place] 76865691 Physician Radiation Oncology 02/17/20 Kami Toure RN Specialty Principal Process Engineer Oncology 06/29/20 [place] [address] [place] [address] [id number] Referring General Surgery 08/20/20 Vikram Gomez MD [address] [place] [address] [id number] Home Care Provider General Surgery 08/20/20 [place] [address] [place] [address] Primary Staff Physician Cardiology 11/19/21 Lucas Pastor, DEE [address] [place], [place] 2572431 Cash Application Representative Family Medicine 04/23/22 Patient Financial Services Specialist Relationship Specialty Start Date End Date Tala Negron MD [address] [place], [place] [id number] PCP - General Family Medicine 01/26/17 J Luis Cid Physician Oncology 01/16/17 Indu Lipscomb (Rn), RN [address] [place] [address] Specialty Principal Process Engineer Hematology/Oncology 01/16/17 No, Referral Referring 03/29/19 Howard Cody MD [address] [place], [place] 5790395 Primary Staff Physician Cardiology 09/07/18 Estefani Bryant MD, [address] [place], [place] [id number] Physician Radiation Oncology 02/17/20 Kami Toure, DEE Specialty Principal Process Engineer Oncology 06/29/20 Vikram Gomez MD [address] [place], [place] 8249695 Referring General Surgery 08/20/20 Vikram Gomez MD [address] [place], [place] 9186895 Home Care Provider General Surgery 08/20/20 Daniela Chan DO [address] [place] [address] Primary Staff Physician Cardiology 11/19/21 Lucas Pastor, RN [address] [place] [address] Cash Application Representative Family Medicine 04/23/22 Patient Financial Services Specialist Relationship Specialty Start Date End Date Tala Negron MD [address] [place], [place] 558901 PCP - General Family Medicine 01/26/17 J Luis Cid Physician Oncology 01/16/17 Indu Lipscomb (Rn), RN [address] [place], [place] 7478995 Specialty Principal Process Engineer Hematology/Oncology 01/16/17 No, Referral Referring 03/29/19 Howard Cody MD [address] [place], [place] 1505495 Primary Staff Physician Cardiology 09/07/18 Estefani Bryant MD, MD [address] [place], [place] 91530691 Physician Radiation Oncology 02/17/20 Kami Toure, DEE Specialty Principal Process Engineer Oncology 06/29/20 Vikram Gomez MD [address] [place], [place] 6888995 Referring General Surgery 08/20/20 [place] [address] [place] [address] Home Care Provider General Surgery 08/20/20 Daniela Chan DO [address] [place], [place] 3226695 Primary Staff Physician Cardiology 11/19/21 Lucas Pastor, DEE [address] [place], [place] [phone] Cash Application Representative Family Medicine 04/23/22 Patient Financial Services Specialist Relationship Specialty [place] [address] [place] [address] 745101 PCP - General Family Medicine 01/26/17 J Luis Cid Physician Oncology 01/16/17 Indu Lipscomb (Rn), RN [address] [place], [place] 7563795 Specialty Principal Process Engineer Hematology/Oncology 01/16/17 No, Referral Referring 03/29/19 Howard Cody MD [address] [place], [place] 6051395 Primary Staff Physician Cardiology 09/07/18 Estefani Bryant MD, MD [address] [place], [place] [phone] Physician Radiation Oncology 02/17/20 Kami Toure, DEE Specialty Principal Process Engineer Oncology 06/29/20 Vikram Gomez MD [address] [place] [phone] Referring General Surgery 08/20/20 [place] [address] [place], [place] 3711595 Home Care Provider General Surgery 08/20/20 Daniela Chan DO [address] [place] [id number] Primary Staff Physician Cardiology 11/19/21 Lucas Pastor, DEE [address] [place] [address] Cash Application Representative Family Medicine 04/23/22 Patient Financial Services Specialist Relationship Specialty [place] [address] [place] [address] [id number] PCP - General Family Medicine 01/26/17 J Luis Cid Physician Oncology 01/16/17 Indu Lipscomb (Rn), RN [address] [place], [place] 5793795 Specialty Principal Process Engineer Hematology/Oncology 01/16/17 No, Referral Referring 03/29/19 Howard Cody MD [address] [place], [place] 4779295 Primary Staff Physician Cardiology 09/07/18 Estefani Bryant MD, MD [address] [place], [place] 04159691 Physician Radiation Oncology 02/17/20 Kami Toure, RN Specialty Principal Process Engineer Oncology 06/29/20 Vikram Gomez MD [address] [place], [place] 0477695 Referring General Surgery 08/20/20 Vikram Gomez MD [address] [place], [place] 5652595 Home Care Provider General Surgery 08/20/20 Daniela Chan DO [address] [place], [place] 8830595 Primary Staff Physician Cardiology 11/19/21 Lucas Pastor, RN [address] [place] [address] Cash Application Representative Family Medicine 04/23/22 Patient Financial Services Specialist Relationship Specialty Start Date End Date Tala Negron MD [address] [place], [place] [phone] PCP - General Family Medicine 01/26/17 J Luis Cid Physician Oncology 01/16/17 DeisiIndu li (Rn), RN [address] [place], [place] 2803695 Specialty Principal Process Engineer Hematology/Oncology 01/16/17 No, Referral Referring 03/29/19 Howard Cody MD [address] [place], [place] 2351895 Primary Staff Physician Cardiology 09/07/18 Estefani Bryant MDMD [address] [place], [place] 649571 Physician Radiation Oncology 02/17/20 Kami Toure, RN Specialty Principal Process Engineer Oncology 06/29/20 Vikram Gomez MD [address] [place] [place], [place] 2061995 Referring General Surgery 08/20/20 Vikram Gomez MD [address] [place] [place], [place] 8619995 Home Care Provider General Surgery 08/20/20 Daniela Chan DO [address] [place], [place] 4264795 Primary Staff Physician Cardiology 11/19/21 Lucas Patsor, DEE [address] [place], [place] [phone] Cash Application Representative Family Medicine 04/23/22 Patient Financial Services Specialist Relationship Specialty [place] [address] [place] [address] [id number] PCP - General Family Medicine 01/26/17 J Luis Cid Physician Oncology 01/16/17 Indu Lipscomb (Rn), RN [address] [place], [place] 2142995 Specialty Principal Process Engineer Hematology/Oncology 01/16/17 No, Referral Referring 03/29/19 Howard Cody MD [address] [place], [place] 2983095 Primary Staff Physician Cardiology 09/07/18 Estefani Bryant MD, [address] [place], [place] 43629691 Physician Radiation Oncology 02/17/20 Kami Toure RN Specialty Principal Process Engineer Oncology 06/29/20 Vikram Gomez MD [address] [place], [place] [phone] Referring General Surgery 08/20/20 Vikram Gomez MD [address] [place], [place] 7609495 Home Care Provider General Surgery 08/20/20 Daniela Chan DO [address] [place], [place] 5787195 Primary Staff Physician Cardiology 11/19/21 Lucas Pastor, DEE [address] [place], [place] 1291031 Cash Application Representative Family Medicine 04/23/22 Patient Financial Services Specialist Relationship Specialty Start Date End Date Tala Negron MD [address] [place], [place] [id number] PCP - General Family Medicine 01/26/17 J Luis Cid Physician Oncology 01/16/17 Indu Lipscomb (Rn), RN [address] [place], [place] 1205995 Specialty Principal Process Engineer Hematology/Oncology 01/16/17 No, Referral Referring 03/29/19 Howard Cody MD [address] [place], [place] 4292495 Primary Staff Physician Cardiology 09/07/18 Estefani Bryant MD, MD [address] [place], [place] 63508691 Physician Radiation Oncology 02/17/20 Kami Toure RN Specialty Principal Process Engineer Oncology 06/29/20 Vikram Gomez MD [address] [place], [place] 4763295 Referring General Surgery 08/20/20 Vikram Gomez MD [address] [place], [place] 4045395 Home Care Provider General Surgery 08/20/20 Daniela Chan DO [address] [place], [place] 4963795 Primary Staff Physician Cardiology 11/19/21 Lucas Pastor, RN [address] [place], [place] [phone] Cash Application Representative Family Medicine 04/23/22 Patient Financial Services Specialist Relationship Specialty [place] [address] [place] [address] [id number] PCP - General Family Medicine 01/26/17 J Luis Cid Physician Oncology 01/16/17 DeisiIndu li (Rn), RN [address] [place], [place] 8870095 Specialty Principal Process Engineer Hematology/Oncology 01/16/17 No, Referral Referring 03/29/19 Howard Cody MD [address] [place], [place] 3375995 Primary Staff Physician Cardiology 09/07/18 Estefani Bryant MD, [address] [place], [place] [phone] Physician Radiation Oncology 02/17/20 Kami Toure RN Specialty Principal Process Engineer Oncology 06/29/20 Vikram Gomez MD [address] [place] [address] Referring General Surgery 08/20/20 Vikram Gomez MD [address] [place], [place] [phone] Home Care Provider General Surgery 08/20/20 Daniela Chan DO [address] [place], [place] 6552495 Primary Staff Physician Cardiology 11/19/21 Lucas Pastor, DEE [address] [place] [address] [phone] Cash Application Representative Family Medicine 04/23/22 Patient Financial Services Specialist Relationship Specialty [place] [address] [place] [address] [id number] PCP - General Family Medicine 01/26/17 J Luis Cid Physician Oncology 01/16/17 Indu Lipscomb (Rn), RN [address] [place] [address] Specialty Principal Process Engineer Hematology/Oncology 01/16/17 No, Referral Referring 03/29/19 Howard Cody MD [address] [place] [address] Primary Staff Physician Cardiology 09/07/18 Estefani Bryant MD, [address] [facility] [place] [address] Physician Radiation Oncology 02/17/20 Kami Toure RN Specialty Principal Process Engineer Oncology 06/29/20 Vikram Gomez MD [address] [place], [place] [phone] Referring General Surgery 08/20/20 Vikram Gomez MD [address] [place], [place] [phone] Home Care Provider General Surgery 08/20/20 Daniela Chan DO [address] [place], [place] 6689495 Primary Staff Physician Cardiology 11/19/21 Lucas Pastor, RN [address] [place], [place] [phone] Cash Application Representative Family Medicine 04/23/22 Patient Financial Services Specialist Relationship Specialty Start Date End Date Tala Negron MD [address] [place], [place] [phone] PCP - General Family Medicine 01/26/17 J Luis Cid Physician Oncology 01/16/17 Indu Lipscomb (Rn), RN [address] [place] [address] Specialty Principal Process Engineer Hematology/Oncology 01/16/17 No, Referral Referring 03/29/19 Howard Cody MD [address] [place] [address] Primary Staff Physician Cardiology 09/07/18 Estefani Bryant MD, MD [address] [place], [place] 69395691 Physician Radiation Oncology 02/17/20 Kami Toure, RN Specialty Principal Process Engineer Oncology 06/29/20 Vikram Gomez MD [address] [place], [place] [phone] Referring General Surgery 08/20/20 Vikram Gomez MD [address] [place], [place] 5879195 Home Care Provider General Surgery 08/20/20 Daniela Chan DO [address] [place], [place] 0690795 Primary Staff Physician Cardiology 11/19/21 Lucas Pastor, RN [address] [place], [place] 1472131 Cash Application Representative Family Medicine 04/23/22 Patient Financial Services Specialist Relationship Specialty Start Date End Date Tala Negron MD [address] [place], [place] [phone] PCP - General Family Medicine 01/26/17 J Luis Cid Physician Oncology 01/16/17 DeisiIndu li (Rn), RN [address] [place], [place] 5282795 Specialty Principal Process Engineer Hematology/Oncology 01/16/17 No, Referral Referring 03/29/19 Howard Cody MD [address] [facility] [place] 0896395 Primary Staff Physician Cardiology 09/07/18 Estefani Bryant MD, MD [address] [place], [place] [phone] Physician Radiation Oncology 02/17/20 Kami Toure, RN Specialty Principal Process Engineer Oncology 06/29/20 Vikram Gomez MD [address] [place], [place] 6360095 Referring General Surgery 08/20/20 Vikram Gomez MD [address] [place], [place] 6497995 Home Care Provider General Surgery 08/20/20 Daniela Chan DO [address] [place], [place] 8778295 Primary Staff Physician Cardiology 11/19/21 Lucas Pastor, DEE [address] [place] [address] Cash Application Representative Family Medicine 04/23/22 Patient Financial Services Specialist Relationship Specialty Start Date End Date Tala Negron MD [address] [place], [place] [phone] PCP - General Family Medicine 01/26/17 J Luis Cid Physician Oncology 01/16/17 DeisiIndu li (Rn), RN [address] [place] [id number] Specialty Principal Process Engineer Hematology/Oncology 01/16/17 No, Referral Referring 03/29/19 Howard Cody MD [address] [place] [address] Primary Staff Physician Cardiology 09/07/18 Estefani Bryant MD, MD [address] [place], [place] [phone] Physician Radiation Oncology 02/17/20 Kami Toure, RN Specialty Principal Process Engineer Oncology 06/29/20 Vikram Gomez MD [address] [place] [address] Referring General Surgery 08/20/20 Vikram Gomez MD [address] [place] [address] Home Care Provider General Surgery 08/20/20 Daniela Chan DO [address] [place] [address] Primary Staff Physician Cardiology 11/19/21 Lucas Pastor, RN [address] [place], [place] [phone] Cash Application Representative Family Medicine 04/23/22 Patient Financial Services Specialist Relationship Specialty Start Date End Date Tala Negron MD [address] [place], [place] [phone] PCP - General Family Medicine 01/26/17 J Luis Cid Physician Oncology 01/16/17 Indu Lipscomb (Rn), RN [address] [place] [address] Specialty Principal Process Engineer Hematology/Oncology 01/16/17 No, Referral Referring 03/29/19 Howard Cody MD [address] [place] [address] Primary Staff Physician Cardiology 09/07/18 Estefani Bryant MD, MD [address] [place], [place] [id number] Physician Radiation Oncology 02/17/20 Kami Toure, RN Specialty Principal Process Engineer Oncology 06/29/20 Vikram Gomez MD [address] [place] [place], [place] [phone] Referring General Surgery 08/20/20 Vikram Gomez MD [address] [place] [place], [place] 5087795 Home Care Provider General Surgery 08/20/20 Daniela Chan DO [address] [place] [address] Primary Staff Physician Cardiology 11/19/21 Lucas Pastor, RN [address] [place], [place] [phone] Cash Application Representative Family Medicine 04/23/22 Patient Financial Services Specialist Relationship Specialty Start Date End Date Tala Negron MD [address] [place], [place] [phone] PCP - General Family Medicine 01/26/17 J Luis Cid Physician Oncology 01/16/17 Indu Lipscomb (Rn), RN [address] [place] [address] Specialty Principal Process Engineer Hematology/Oncology 01/16/17 No, Referral Referring 03/29/19 Howard Cody MD [address] [facility] [place], [place] 9415795 Primary Staff Physician Cardiology 09/07/18 Estefani Bryant MD, MD [address] [place], [place] [phone] Physician Radiation Oncology 02/17/20 Kami Toure RN Specialty Principal Process Engineer Oncology 06/29/20 Vikram Gomez MD [address] [place] [address] Referring General Surgery 08/20/20 Vikram Gomez MD [address] [place] [address] Home Care Provider General Surgery 08/20/20 Daniela Chan DO [address] [place] [address] Primary Staff Physician Cardiology 11/19/21 Lucas Pastor, RN [address] [place] [address] Cash Application Representative Family Medicine 04/23/22 Patient Financial Services Specialist Relationship Specialty Start Date End Date Tala Negron MD [address] [place], [place] [phone] PCP - General Family Medicine 01/26/17 J Luis Cid Physician Oncology 01/16/17 Indu Lipscomb (Rn), RN [address] [place] [id number] Specialty Principal Process Engineer Hematology/Oncology 01/16/17 No, Referral Referring 03/29/19 Howard Cody MD [address] [place] [id number] Primary Staff Physician Cardiology 09/07/18 Estefani Bryant MD, [address] [place] [address] Physician Radiation Oncology 02/17/20 Kami Toure RN Specialty Principal Process Engineer Oncology 06/29/20 Vikram Gomez MD [address] [place] [phone] Referring General Surgery 08/20/20 Vikram Gomez MD [address] [place] [address] Home Care Provider General Surgery 08/20/20 Daniela Chan DO [address] [place] [address] Primary Staff Physician Cardiology 11/19/21 Lucas Pastor RN [address] [place], [place] [id number] Cash Application Representative Family Medicine 04/23/22 Patient Financial Services Specialist Relationship Specialty Start Date End Date Tala Negron MD [address] [place], [place] [id number] PCP - General Family Medicine 01/26/17 J Luis Cid Physician Oncology 01/16/17 DeisiIndu li (Rn), RN [address] [place], [place] [id number] Specialty Principal Process Engineer Hematology/Oncology 01/16/17 No, Referral Referring 03/29/19 Hoawrd Cody MD [address] [place], [place] [id number] Primary Staff Physician Cardiology 09/07/18 Estefani Bryant MD, MD [address] [place], [place] [id number] Physician Radiation Oncology 02/17/20 Kami Toure RN Specialty Principal Process Engineer Oncology 06/29/20 Vikram oGmez MD [address] [place], [place] [phone] Referring General Surgery 08/20/20 Vikram Gomez MD [address] [place] [place], [place] [phone] Home Care Provider General Surgery 08/20/20 Daniela Chan DO [address] [place] [address] Primary Staff Physician Cardiology 11/19/21 Lucas Pastor, DEE [address] [place] [address] Cash Application Representative Family Medicine 04/23/22 Patient Financial Services Specialist Relationship Specialty Start Date End Date Tala Negron MD [address] [place], [place] [address]781 PCP - General Family Medicine 01/26/17 J Luis Cid Physician Oncology 01/16/17 Indu Lipscomb (Rn), RN [address] [place], [place] [id number] Specialty Principal Process Engineer Hematology/Oncology 01/16/17 No, Referral Referring 03/29/19 Howard Cody MD [address] [place] [address] Primary Staff Physician Cardiology 09/07/18 Estefani Bryant MD, MD [address], [place] [id number] Physician Radiation Oncology 02/17/20 Kami Toure RN Specialty Principal Process Engineer Oncology 06/29/20 Vikram Gomez MD [address] [place] [address] Referring General Surgery 08/20/20 Vikram Gomez MD [address] [place] [address] Home Care Provider General Surgery 08/20/20 Daniela Chan DO [address] [place] [address] Primary Staff Physician Cardiology 11/19/21 Lucas Pastor, DEE [address] [place] [address] Cash Application Representative Family Medicine 04/23/22 Patient Financial Services Specialist Relationship Specialty Start Date End Date Tala Negron MD [address] [place], [place] [phone] PCP - General Family Medicine 01/26/17 J Luis Cid Physician Oncology 01/16/17 Indu Lipscomb (Rn), RN [address] [place], [place] [id number] Specialty Principal Process Engineer Hematology/Oncology 01/16/17 No, Referral Referring 03/29/19 Howard Cody MD [address] [place], [place] [id number] Primary Staff Physician Cardiology 09/07/18 Estefani Bryant MD, MD [address] [place], [place] [id number] Physician Radiation Oncology 02/17/20 Kami Toure RN Specialty Principal Process Engineer Oncology 06/29/20 Vikram Gomez MD [address] [place] [address] Referring General Surgery 08/20/20 Vikram Gomez MD [address] [place] [address] Home Care Provider General Surgery 08/20/20 Daniela Chan DO [address] [place], [place] [id number] Primary Staff Physician Cardiology 11/19/21 Lucas Pastor, RN [address] [place], [place] [phone] Cash Application Representative Family Medicine 04/23/22 Patient Financial Services Specialist Relationship Specialty Start Date End Date Tala Negron MD [address] [place], [place] [address] PCP - General Family Medicine 01/26/17 J Luis Cid Physician Oncology 01/16/17 Indu Lipscomb (Rn), RN [address] [place], [place] [id number] Specialty Principal Process Engineer Hematology/Oncology 01/16/17 No, Referral Referring 03/29/19 Howard Cody MD [address] [place], [place] [phone] Primary Staff Physician Cardiology 09/07/18 Estefani Bryant MD, MD [address] [place], [place] [phone] Physician Radiation Oncology 02/17/20 Kami Toure RN Specialty Principal Process Engineer Oncology 06/29/20 Vikram Gomez MD [address] [place], [place] [phone] Referring General Surgery 08/20/20 Vikram Gomez MD [address] [place], [place] [id number] Home Care Provider General Surgery 08/20/20 Daniela Chan DO [address] [place], [place] [phone] Primary Staff Physician Cardiology 11/19/21 Lucas Pastor, DEE [address] [place], [place] [phone] Cash Application Representative Family Medicine 04/23/22 Reason for Visit (unrecogniz ed section and content) Specialty Diagnoses / Procedures Referred By Contac t Referred To Contact Physical Therapy / PHYSICAL THERAPY Diagnoses Fall in home, initial encounter; Left upper arm pain; Unsteady gait when walking, order in Review Tab Procedures NEW RS PT GAIT TestTracy jean [address] [place] [address] Anselmo Prather, PT [address] [place] [address] Referral ID Status Reason Start Date Expiration Date V isits Requested Visits Authorized [id number] Authorized 06/22/2022 06/21/2023 99 99 Reason Onset [...] DIAGNOSTIC COMPUTED TOMOGRAPHY THORAX W/CONTRAST Nimisha Aleman APRN.UROGYNECOLOGY PHYSICIAN [address] [place] [address] Ct Imaging Referral ID Status Reason Start Date Expiration Date V isits Requested Visits Authorized [id number] Closed Auto-Generate d Referral 11/11/2021 12/11/2022 1 1 Reason Onset Date Comments Insight Escalation 11/25/2021 Insight [facility] questionnaire triggered escalation Reason Comments Follow Up Reason Comments Patient Assistance Reason Comments Medication Assistance Program [employer] for Ibrance Specialty Diagnoses / Procedures Referred By Contac t Referred To Contact CT IMAGING Diagnoses 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, estrogen receptor positive (HCC) Lung nodules Cough Procedures CT CHEST W IVCON DIAGNOSTIC COMPUTED TOMOGRAPHY THORAX W/CONTRAST Nimisha Aleman, KAROLINA.UROGYNECOLOGY PHYSICIAN [address] [place] [address] Ct Imaging Referral ID Status Reason Start Date Expiration Date V isits Requested Visits Authorized [id number] Closed Auto-Generate d Referral 11/22/2021 12/22/2022 1 [...] RS PT ORTHOTIC TestTracy jean [address] [facility] [place] [address] Anselmo Prather, PT [address] [place] [address] Referral ID Status Reason Start Date Expiration Date V isits Requested Visits Authorized [id number] Authorized 06/22/2022 06/21/2023 99 99 Reason Onset [...] COMPLEX 45 MINS Tala Negron MD [address] [place] [address] [facility] [place] [address] [place] [address] Referral ID Status Reason Start Date Expiration Date Visits Requested Visits Authorized [id number] Authorized PCP Requested Referral Auto-Generate d Referral [...] NEW HIGH MDM 60-74 MINUTES LiorlogMelanie sanabria BAND PRESSER.UROGYNECOLOGY PHYSICIAN [address] [place] [address] Referral ID Status Reason Start Date Expiration Date V isits Requested Visits Authorized [id number] Closed PCP Requested Referral 02/16/2023 02/16/2024 1 [...] LOWER EXTREM W/O & W/CONTRAST Nimisha Lion, BAND PRESSER.UROGYNECOLOGY PHYSICIAN [address] [place] [address] [place] [address] Referral ID Status Reason Start Date Expiration Date V isits Requested Visits Authorized [id number] Closed Auto-Generate d Referral 11/07/2022 12/07/2023 1 1 Reason Comments Radiology US Specialty Diagnoses / Procedures [facility] To Contact US IMAGING Diagnoses Stage 3b chronic kidney disease (HCC) Essential hypertension Chronic diastolic CHF (congestive heart failure) (HCC) Procedures US KIDNEY/BLADDER US RETROPERITONEAL REAL TIME W/[place] [address] [place] [address] [place] [address] Referral ID Status Reason Start Date Expiration Date V isits Requested Visits Authorized [id number] Closed Auto-Generate d Referral 02/25/2023 03/26/2024 1 1 Reason Comments Radiology NM Specialty Diagnoses / Procedures Referred By Contac t Referred To Contact MOLECULAR & FUNCTIONAL IMAGING Diagnoses 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, estrogen receptor positive (HCC) 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 [employer] provides no warranty or guarantee of the accuracy or completeness of information in this document.
[2023-07-17] MEDS: Cephalexin 250 MG Capsule PO (00:29)
[2023-07-17] MEDS: Ondansetron 4 MG/2 ML Vial IV (00:58)
[2023-07-17 05:03] LABS: Absolute Lymphocyte Count 0.44 X10^3/uL (0.83-4.51); Absolute Neutrophil Count 2.7 X10^3/uL (2.0-7.7); Basophil# 0.07 X10^3/uL; Hemoglobin 8.8 g/dL (12.0-15.0); Lymphocyte # 0.44 X10^3/ul (0.83-4.51); Lymphocyte % 12.9 % (19-41); Mean Corp Hgb Conc 32.6 g/dL (32-36); Mean Corpuscular Hgb 35.1 pg (27.0-32.0); Mean Corpuscular Volume 107.6 fL (81-99); Mean Platelet Vol. 9.2 fl (6.2-12.0); Monocyte# 0.18 X10^3/uL; Monocyte% 5.3 % (0-10); NRBC Flagged by Analyzer 0 % (0-5); Neutrophil # 2.72 X10^3/uL (2.7-7.7); Neutrophil % 79.5 % (47-70); POSITIVE DIFFERENTIAL YES; Platelet Count 184 K/mm3 (150-450); RBC Distribution Width CV 16.7 % (11.6-14.6); RBC Distribution Width SD 64.9 fl (35.1-43.9); Red Blood Count 2.51 M/mm3 (4.2-5.4); White Blood Count 3.4 K/mm3 (4.4-11.0)
[2023-07-17 05:04] LABS: Differential Indicated SCAN CRITERIA MET
[2023-07-17 05:32] LABS: ALB/GLOB Ratio 1.1 RATIO (0.9-2.4); AST(SGOT) 15 U/L (15-37); Alanine Aminotransfer ALT/SGPT 17 U/L (13-56); Albumin, Serum 3.5 g/dL (3.2-5.0); Alkaline Phosphatase 120 U/L (45-117); Anion Gap 6 (5-15); BUN 53 mg/dL (7-18); BUN/Creat Ratio 38.4 RATIO (10-20); Calcium,Total 8.3 mg/dL (8.5-10.1); Chloride 109 mmol/L (98-107); Creatinine, Serum 1.38 mg/dL (0.55-1.02); EST Glomerular Filtration Rate 39 mL/min (>60); Est Glom Filt Rate - Afr Amer 47 mL/min (>60); Estimated Creatinine Clearance 29.23 ml/min; Globulin 3.2 g/dL (2.2-4.2); Glucose 154 mg/dL (74-106); Potassium 4.3 mmol/L (3.5-5.1); Protein, Total 6.7 g/dL (6.4-8.2); Sodium Level 140 mmol/L (136-145)
[2023-07-17 05:49] LABS: Differential Comment SCANNED
[2023-07-17 06:46] LABS: Bedside Glucose 135 mg/dL (74-106)
--- NOTE | 2023-07-17 07:48 | PCM.PN.HOSP ---
Reason for Visit Reason for Visit: Diagnoses Acute posthemorrhagic anemia (07/16/23) Epistaxis (07/16/23) Syncope and collapse (07/16/23) Objective Data Objective Data Vital Signs: Vital Signs Temp Pulse Resp BP Pulse Ox O2 Del Method 98.1 F 68 15 103/70 99 Room Air 07/17/23 04:04 07/17/23 04:04 07/17/23 04:04 07/17/23 04:04 07/17/23 04:04 07/17/23 04:04 Oxygen Delivery Method Room Air Weight: 143 lb 1.28 oz Body Mass Index (BMI) 26.2 Intake & Output: Intake and Output for Last 24 Hours 07/15/23 07/16/23 07/17/23 23:59 23:59 23:59 Intake Total 501 / 501 Output Total 0 / 0 Balance 501 / 501 Lab / Micro Data 07/17/23 04:40 07/17/23 04:40 Labs: Laboratory Results - last 24 hr 07/16/23 22:36: WBC 3.3 L, RBC 2.31 L, Hgb 8.4 L, Hct 25.0 L, MCV 108.2 H, MCH 36.4 H, MCHC 33.6, RDW Std Deviation 65.6 H, RDW Coeff of Ragini 16.4 H, Plt Count 224, MPV 8.8, Differential Comment SCANNED 07/16/23 23:34: Sodium 138, Potassium 4.1, Chloride 106, Carbon Dioxide 23.0, Anion Gap 9, BUN 51 H, Creatinine 1.63 H, Estim Creat Clear Calc 24.98, Est GFR (MDRD) Af Amer 39 L, Est GFR (MDRD) Non-Af 32 L, BUN/Creatinine Ratio 31.3 H, Glucose 196 H, Calcium 8.9, Blood Type O POSITIVE, Antibody Screen NEGATIVE, Crossmatch See Detail 07/17/23 04:40: WBC 3.4 L, RBC 2.51 L, Hgb 8.8 L, Hct 27.0 L, MCV 107.6 H, MCH 35.1 H, MCHC 32.6, RDW Std Deviation 64.9 H, RDW Coeff of Ragini 16.7 H, Plt Count 184, MPV 9.2, Immature Gran % (Auto) 0.300, Neut % (Auto) 79.5 H, Lymph % (Auto) 12.9 L, [place] % (Auto) 5.3, Eos % (Auto) 0.0, Baso % (Auto) 2.0 H, Absolute Neuts (auto) 2.7, Absolute Lymphs (auto) 0.44 L, Nucleated RBC % 0, Differential Comment SCANNED, Sodium 140, Potassium 4.3, Chloride 109 H, Carbon Dioxide 25.0, Anion Gap 6, BUN 53 H, Creatinine 1.38 H, Estim Creat Clear Calc 29.23, Est GFR (MDRD) Af Amer 47 L, Est GFR (MDRD) Non-Af 39 L, BUN/Creatinine Ratio 38.4 H, Glucose 154 H, Calcium 8.3 L, Total Bilirubin 0.90, AST 15, ALT 17, Alkaline Phosphatase 120 H, Total Protein 6.7, Albumin 3.5, Globulin 3.2, Albumin/Globulin Ratio 1.1 07/17/23 06:10: POC Glucose 135 H Physical Exam Narrative Seen and examined. Patient admitted with severe epistaxis along with severe anemia. Patient had mild dizziness with low blood pressure, hypotension. Patient had syncopal episode probably due to hypotension. Currently BP 103/70. Denies chest pain or shortness of breath. General: Alert, Oriented x3, Cooperative HEENT: Atraumatic, PERRLA, EOMI, Normocephalic Oral: No Gingival or Mucosal Lesions/ Ulcerations Neck: Right nostril packing done. Big dressing. Mild bleeding. Supple, No JVD, Negative Carotid Bruits Chest wall/Lungs: Air entry diminished in bilateral lung bases. No crepitation/rhonchi Cardiovascular: A-fib. Normal S1, Normal S2, loud holosystolic murmur grade 5/6 over LLSB and tricuspid area. No carotid radiation. Abdomen: Bowel Sounds Present, Soft, Non Tender, Non-Distended : No dysuria. No renal angle tenderness. No suprapubic tenderness. Extremities: No edema, Capillary Refill Less than 3 Seconds Skin: No rashes, No breakdown Musculoskeletal: No Tenderness to Palpation of Joints or Extremities Neurological: Cranial nerves II-XII grossly intact, DTR 2+/4. No acute focal neurological deficit. Psych/Mental Status: Normal Affect, Appropriate. Assessment & Plan Assessment/Plan (1) Episode of syncope: (2) Acute blood loss anemia: (3) Epistaxis: PLAN: Plan The patient is a 78 y/o F on Eliquis for chronic A-fib came to ED with epistaxis, recurrent and atraumatic from right nostril. It is started 3 hours prior to arrival in ED. No cough, dyspnea, blurry vision, fever or chills or confusion/encephalopathy She had similar episode 06/25/23. #1. Acute R sided spontaneous epistaxis on chronic oral anticoagulant therapy with Acute Blood Loss Anemia on Chronic Anemia with associated syncopal event with hypotension secondary to blood loss: Patient is being admitted in PCU. Most recent blood pressure 103/70. Heart rate 68/min. H&H 8.8/27%. Platelet count 184. Patient was just treated with IV fluid in ED with normal saline bolus. Nasal packing was done in right nare with prophylactic antibiotic and ENT consultation. PT OT. Orthostatic blood pressure supine and sitting shows no significant change in heart rate and blood pressure. Will repeat orthostatics tomorrow morning supine, sitting and standing #2. PAF: Status post previous history of ablation, continue patient home amiodarone regimen. Beta-ac and Eliquis held. #3. Chronic HFpEF: Because of the above conditions, will hold all Lasix and spironolactone.Eliquis Lasix, metoprolol, spironolactone. Continue statin. Patient reporting EF appropriate thus suspect HFpEF but uncertain, will hold eliquis as noted, continue statin, holding metoprolol, Lasix, spironolactone, not on ROBERTA inhibitor/ARB from records but had been previously. Judiciously hydrating with IV fluids until PRBC available and if necessary if BP is improved may certainly pulse dose with IV Lasix if appropriate. #4. Hypertension: Given presentation and noted with syncopal event with hypotension with acute blood loss anemia we will hold patient hypertensive regimen which from records includes amlodipine, metoprolol, spironolactone, Lasix with resumption's once clinically appropriate. #5. Hyperlipidemia: We will continue patient on statin therapy. #6. Hx L sided Breast CA: Unclear type x 3 separate occasions s/p chemotherapy/radiation/lumpectomy and eventual mastectomy, following with jen Erickson continue patient home exemestane regimen, encouraged continued outpatient follow-up with oncology as previously arranged. #7. Hypothyroidism: continue patient home levothyroxine regimen. #8. Diabetes mellitus type II: Hold oral home regimen, ADA diet, accu checks w/ ISS. #9. 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 She notes she had been instructed to stop her anticoagulant therapy 3 days prior. Encouraged her to update them on this recent event. #10. CAMRYN: Given current presentation holding CPAP. #11. DVT prophylaxis: Given acute presentation as noted #1 holding patient home Eliquis regimen. #12. CODE status: Patient SANDRO is and her niece and living will is currently in place. Discussed CODE status at length including difference between FULL code, DNR-CCA and DNR-CC status. Following discussions about the differences in these status, requested Full Code status. Advanced Care Planning Face to Face Time: 16 minutes. Charges/Coding Visit Charges Inpatient E&M: 61498 Subs Hosp L2
[2023-07-17] MEDS: Cephalexin 500 MG Capsule PO ×2 (08:50→21:58)
[2023-07-17] MEDS: Amiodarone 200 MG Tablet PO (08:50)
--- NOTE | 2023-07-17 10:50 | CASEMGMT ---
RN CICI Face to Face with patient for initial transition planning/care coordination assessment. RN CM introduced self and role at [facility]. Patient lying in bed, alert and oriented, friend at bedside. Patient willing to participate in assessment and is able to answer all questions appropriately. Care providers, pharmacy, and demographics verified. Patient wishes to discharge home, denies need for home health at this time. Patient states she has no further needs or concerns at this time. CM to follow for discharge planning needs that may arise. PCP: Jamil Specialists: Keesha, oncologist; JARRED Collins pulmonologsit; Rocio, supervisor cook room [facility] Yamilka jacobs ENT Preferred Pharmacy: [facility] Insurance: [employer], [employer] Prescription Benefit: yes Living Will/HPOA: yes, niece Marsha Young [phone] LNOK: niece, brother Living Arrangements: Patient lives alone in a condo with first floor setup. Patient is independent at home. Transportation: self, friend DME/HHC: Patient has raised toilet, cane, cpap at home. Patient has had [facility] in the past. No previous SNF. Disposition Plan: Patient to discharge home with family support and follow-up plans in place. Esperanza LUNDBERG, RN, CM
[2023-07-17 12:31] LABS: Bedside Glucose 114 mg/dL (74-106)
[2023-07-17 16:43] LABS: Bedside Glucose 105 mg/dL (74-106)
--- NOTE | 2023-07-17 21:30 | NURSING ---
ENT Dr. Sheth paged for this pt, was notified that consult was placed in ED about 18 hours ago and that the consult was showing incomplete from this RN end. made aware that pt has packing to right nare and there is old dry drainage. Eliquis is also on hold. Dr. Sheth was not aware that there was a consult in place and notified this RN that he will be in to see the pt tomorrow. Consult was then completed off.
[2023-07-17] MEDS: Atorvastatin Calcium 20 MG Tablet PO (21:58)
[2023-07-18 01:39] LABS: Bedside Glucose 135 mg/dL (74-106)
[2023-07-18 03:28] VITALS: BP 141/77; PULSE 84; RESP 15; TEMP 36.8; O2SAT 95
[2023-07-18 05:23] VITALS: BMI 25.6
[2023-07-18 06:51] LABS: Bedside Glucose 125 mg/dL (74-106)
[2023-07-18 07:49] VITALS: O2SAT 96
[2023-07-18 09:13] LABS: Absolute Lymphocyte Count 0.84 X10^3/uL (0.83-4.51); Absolute Neutrophil Count 2.1 X10^3/uL (2.0-7.7); Basophil# 0.09 X10^3/uL; Basophil% 2.6 % (0-1); Eosinophil# 0.11 X10^3/uL; Eosinophils% 3.2 % (0-5); Hematocrit 24.7 % (37-47); Hemoglobin 8.3 g/dL (12.0-15.0); Lymphocyte # 0.84 X10^3/ul (0.83-4.51); Lymphocyte % 24.6 % (19-41); Mean Corp Hgb Conc 33.6 g/dL (32-36); Mean Corpuscular Hgb 35.5 pg (27.0-32.0); Mean Corpuscular Volume 105.6 fL (81-99); Mean Platelet Vol. 9.2 fl (6.2-12.0); Monocyte# 0.29 X10^3/uL; Monocyte% 8.5 % (0-10); NRBC Flagged by Analyzer 0 % (0-5); Neutrophil # 2.07 X10^3/uL (2.7-7.7); Neutrophil % 60.8 % (47-70); POSITIVE MORPHOLOGY YES; Platelet Count 167 K/mm3 (150-450); RBC Distribution Width CV 17.2 % (11.6-14.6); RBC Distribution Width SD 65.3 fl (35.1-43.9); Red Blood Count 2.34 M/mm3 (4.2-5.4); White Blood Count 3.4 K/mm3 (4.4-11.0)
[2023-07-18 09:19] LABS: Differential Indicated SCAN CRITERIA MET
[2023-07-18 09:35] LABS: Anion Gap 4 (5-15); BUN 28 mg/dL (7-18); Calcium,Total 8.7 mg/dL (8.5-10.1); Chloride 108 mmol/L (98-107); Creatinine, Serum 1.12 mg/dL (0.55-1.02); EST Glomerular Filtration Rate 50 mL/min (>60); Est Glom Filt Rate - Afr Amer 60 mL/min (>60); Estimated Creatinine Clearance 35.66 ml/min; Glucose 127 mg/dL (74-106); Potassium 3.8 mmol/L (3.5-5.1); Sodium Level 137 mmol/L (136-145)
[2023-07-18 09:36] VITALS: BP 114/59; PULSE 88; RESP 16; TEMP 36.9; O2SAT 99
[2023-07-18] MEDS: Cephalexin 500 MG Capsule PO (09:43)
[2023-07-18] MEDS: Amiodarone 200 MG Tablet PO (09:43)
--- NOTE | 2023-07-18 10:07 | PCM.PN.BLA ---
Progress Note Asked to see the patient last night at 2044 for epistaxis. 78 yo white female presented to the ER on 07/16/23 with a brisk right sided nose bleed. A right pack was placed which controlled the bleed. She then had syncope in the ER and was admitted for fluids and a transfusion. She has had no bleeding or syncope since. PE: awake alert nad. M/OP- no bleeding or abnormalities nose- Large rhino rocket in place about 2/3s of which is in the nose. The cuff is appropriately inflated. No evidence of bleeding neck- no adenopathy A: epistaxis anticoagulation P: She may be discharged from a nose standpoint. She will need to follow up in our office on 07/21 for pack removal. She should (if possible) stay off all anticoagulation until that time. She should stay on antibiotics until pack removal.
--- NOTE | 2023-07-18 10:36 | PCM.DC.SUM ---
Providers Date of Admission: 07/16/23 Date of Discharge: 07/18/23 Primary Care Physician: Dr. Phil Negron MD Consultations 07/17/23 01:43 Consult: ENT Routine Consulting Provider: Sukhdeep Sheth Reason for Consult: Recurrent R sided epistaxis on anticoagulant EMERGENT Consult: No MD Notified: Yes Date Notified: 07/17/23 Time Notified: 21:30 Method of Notification: Verbal Reason For Visit: ABLA, R SIDED SPONTANEOUS EPISTAXIS, SYNCOPE Diagnosis Discharge Diagnosis (1) Episode of syncope: Status: Acute Code(s): R55 - Syncope and collapse (2) Acute blood loss anemia: Status: Acute Code(s): D62 - Acute posthemorrhagic anemia (3) Epistaxis: Status: Acute Code(s): R04.0 - Epistaxis Plan The patient is a 78 y/o F on Eliquis for chronic A-fib came to ED with epistaxis, recurrent and atraumatic from right nostril. It is started 3 hours prior to arrival in ED. No cough, dyspnea, blurry vision, fever or chills or confusion/encephalopathy She had similar episode 06/25/23. #1. Acute R sided spontaneous epistaxis on chronic oral anticoagulant therapy with Acute Blood Loss Anemia on Chronic Anemia with associated syncopal event with hypotension secondary to blood loss: Patient is being admitted in PCU. Most recent blood pressure 103/70. Heart rate 68/min. H&H 8.8/27%. Platelet count 184. Patient was just treated with IV fluid in ED with normal saline bolus. Nasal packing was done in right nare with prophylactic antibiotic and ENT consultation. PT OT. Orthostatic blood pressure supine and sitting shows no significant change in heart rate and blood pressure. 07/18: BP 127/64, 141/77, heart rate in 80s. Patient does not feel dizzy lightheaded or vertigo or walking to the bathroom. Patient was evaluated by ENT Dr. Sheth and advised to keep the nasal packing. Follow-up by 07/21/2023. Patient was instructed strictly to hold warfarin until sees Dr. Sheth. She also instructed to let [facility] surgeon to know that she she is of Eliquis and epistaxis episode where she is in included in the research study/trial for tricuspid valve clipping surgery. Her hemoglobin improved to 8.3/24.7%. Platelet count normal. #2. PAF: Status post previous history of ablation, continue patient home amiodarone regimen. Beta-ac and Eliquis held. 07/18: I will put back around the beta-ac. #3. Chronic HFpEF: Because of the above conditions, will hold all Lasix and spironolactone.Eliquis Lasix, metoprolol, spironolactone. Continue statin. Patient reporting EF appropriate thus suspect HFpEF but uncertain, will hold eliquis as noted, continue statin, holding metoprolol, Lasix, spironolactone, not on ROBERTA inhibitor/ARB from records but had been previously. Judiciously hydrating with IV fluids until PRBC available and if necessary if BP is improved may certainly pulse dose with IV Lasix if appropriate. #4. Hypertension: Her home medications resumed including Lasix, metoprolol and amlodipine. #5. Hyperlipidemia: continue patient on statin therapy. #6. Hx L sided Breast CA: Unclear type x 3 separate occasions s/p chemotherapy/radiation/lumpectomy and eventual mastectomy, following with jen Erickson continue patient home exemestane regimen and follow-up with Dr. Thao. #7. Hypothyroidism: continue patient home levothyroxine regimen. #8. Diabetes mellitus type II: Hold oral home regimen, ADA diet, accu checks w/ ISS. 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 She might get increased creatinine on Lasix. #9. 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 She notes she had been instructed to stop her anticoagulant therapy 3 days prior. Encouraged her to update them on this recent event. #10. CAMRYN: Given current presentation holding CPAP. #11. DVT prophylaxis: Given acute presentation as noted #1 holding patient home Eliquis regimen. #12. CODE status: Patient SANDRO is and her niece and living will is currently in place. Discussed CODE status at length including difference between FULL code, DNR-CCA and DNR-CC status. Following discussions about the differences in these status, requested Full Code status. Advanced Care Planning Face to Face Time: 16 minutes. Discharge medication reconciliation done. Discharge follow-up instructions completed. Discharge process discussed with the patient and all questions were answered to patient's satisfaction. Follow with PCP in 1 to 2 weeks Total time spent, exact 35 minutes on discharge meds reconciliation, examination, coordination of care with nurses and ancillary staff, review of imaging and blood test and discussion with the patient on follow-up instructions. Medications at Discharge Home Medications spironolactone 25 mg tablet 12.5 mg PO QODAY HF, HTN 07/16/23 amlodipine 2.5 mg tablet 5 mg PO DAILY HTN 07/17/23 apixaban 5 mg tablet (Eliquis) 5 mg PO BID PAF 07/17/23 atorvastatin 20 mg tablet 20 mg PO QHS HLD 07/17/23 biotin 5,000 mcg disintegrating tablet 5,000 mcg PO BID hair 07/17/23 cholecalciferol (vitamin D3) 25 mcg (1,000 unit) tablet (Vitamin D3) 1,000 unit PO BID bones 07/17/23 coenzyme Q10-vit E3-J1-D-magnesium-zinc 30 mg-25 mg-25 mg-250 mg cap 1 cap PO DAILY heart 07/17/23 exemestane 25 mg tablet 25 mg PO DAILY Breast CA 07/17/23 finasteride 5 mg tablet 5 mg PO DAILY BPH 07/17/23 furosemide 40 mg tablet 40 mg PO DAILY HF, HTN 07/17/23 furosemide 80 mg tablet (Lasix) 80 mg PO QODAY chf 07/17/23 levothyroxine 100 mcg tablet 100 mcg PO .qam Hypothyroidism 07/17/23 melatonin 5 mg capsule 5 mg PO QHS sleep 07/17/23 metformin 500 mg tablet 500 mg PO BID DM 07/17/23 metoprolol succinate 25 mg tablet,extended release 24 hr 25 mg PO DAILY PAF, HTN, HF 07/17/23 omega3-krill oil 1 tab PO DAILY heart 07/17/23 palbociclib 100 mg capsule (Ibrance) 100 mg PO DAILY cancer 07/17/23 potassium chloride 20 mEq tablet,extended release(part/cryst) (Klor-Con M) 60 meq PO DAILY HypoK 07/17/23 vit C 250 mg-vit E 90 mg-zinc 40 mg-copper 1 pc-[id number]-evdhsc capsule (PreserVision AREDS-2) 1 tab PO BID eyes 07/17/23 Physical Exam Narrative Seen and examined. She did not had any further epistaxis episodes or bleeding through mouth or nose after admission. Patient was evaluated by Dr. Sukhdeep Sheth. Advised to keep the Rhinocort. Hypotension and dizziness has resolved. Patient walking to the bathroom without problem. General: Alert, Oriented x3, Cooperative HEENT: Atraumatic, PERRLA, EOMI, Normocephalic Oral: No Gingival or Mucosal Lesions/ Ulcerations Neck: Right nostril packing done. Keep the dressing/nasal packing. Supple, No JVD, Negative Carotid Bruits Chest wall/Lungs: Air entry diminished in bilateral lung bases. No crepitation/rhonchi Cardiovascular: A-fib. Normal S1, Normal S2, loud holosystolic murmur grade 5/6 over LLSB and tricuspid area. No carotid radiation. Abdomen: Bowel Sounds Present, Soft, Non Tender, Non-Distended : No dysuria. No renal angle tenderness. No suprapubic tenderness. Extremities: No edema, Capillary Refill Less than 3 Seconds Skin: No rashes, No breakdown Musculoskeletal: No Tenderness to Palpation of Joints or Extremities Neurological: Cranial nerves II-XII grossly intact, DTR 2+/4. No acute focal neurological deficit. Psych/Mental Status: Normal Affect, Appropriate. Weight / BMI Weight Weight: 139 lb 15.896 oz Body Mass Index (BMI) 25.6 ABG / Lab / Microbiology Data 07/18/23 08:02 07/18/23 08:02 Laboratory: Laboratory Results - last 24 hr 07/17/23 12:13: POC Glucose 114 H 07/17/23 16:22: POC Glucose 105 07/17/23 22:06: POC Glucose 135 H 07/18/23 06:33: POC Glucose 125 H 07/18/23 08:02: WBC 3.4 L, RBC 2.34 L, Hgb 8.3 L, Hct 24.7 L, MCV 105.6 H, MCH 35.5 H, MCHC 33.6, RDW Std Deviation 65.3 H, RDW Coeff of Ragini 17.2 H, Plt Count 167, MPV 9.2, Immature Gran % (Auto) 0.300, Neut % (Auto) 60.8, Lymph % (Auto) 24.6, Jay % (Auto) 8.5, Eos % (Auto) 3.2, Baso % (Auto) 2.6 H, Absolute Neuts (auto) 2.1, Absolute Lymphs (auto) 0.84, Nucleated RBC % 0, Sodium 137, Potassium 3.8, Chloride 108 H, Carbon Dioxide 25.0, Anion Gap 4 L, BUN 28 H, Creatinine 1.12 H, Estim Creat Clear Calc 35.66, Est GFR (MDRD) Af Amer 60, Est GFR (MDRD) Non-Af 50 L, BUN/Creatinine Ratio 25.0 H, Glucose 127 H, Calcium 8.7 D/C Instructions Discharge Diet: Low fat / Low cholesterol and 2000 mg Sodium Diet Weight Bearing Status: Weight bearing as tolerated Call your doctor if you observe: Fever of 101 or Higher, Coldness, Increased Pain, Numbness or Tingling, Change in Color, Inability to urinate, Inability to have a bowel movement, Using more than 1 pad per hour, Shortness of breath, Dizziness, Fainting spells, Swelling in the ankles, Chest pain, Prolonged hiccupping, Increased palpitations (irregular heartbeat) and Calf discomfort When: IN 2 WEEKS Meaningful Use Info Meaningful Use Diagnoses (Choose all that apply): None applicable Discharge Plan Admission Admit Date/Time: 07/16/23 23:41 Primary Reason for Your Visit: Epistaxis, acute blood loss anemia. Attending Provider: Bill Redding Primary Care Provider: Phil Negron Consulting Providers: Stacey Copeland; Sukhdeep Sheth Instructions Additional Instructions / Restrictions: Stop the Eliquis completely. Make sure your planer setter knows this. Just tell them you are having too many too severe nosebleeds right now to be on a blood thinner. Avoid aspirin also and Motrin at this time. If bleeding restarts, then hold direct pressure for 20 to 30 minutes. If unable start just come back in. Call and follow-up with Sukhdeep Sheth soon as possible. Discharge Orders/Prescriptions Prescriptions: Continued spironolactone 25 mg tablet 12.5 mg PO QODAY Patient Comments: TAKE 1/2 TABLET BY MOUTH ONCE DAILY potassium chloride [Klor-Con M20] 20 mEq tablet,ER particles/crystals 60 meq PO DAILY metoprolol succinate 25 mg tablet extended release 24 hr 25 mg PO DAILY metformin 500 mg tablet 500 mg PO BID Patient Comments: TAKE 1 TABLET BY MOUTH TWICE A DAY WITH FOOD levothyroxine 100 mcg tablet 100 mcg PO .qam Patient Comments: TAKE 1 TABLET BY MOUTH IN THE MORNING furosemide 40 mg tablet 40 mg PO DAILY finasteride 5 mg tablet 5 mg PO DAILY Patient Comments: TAKE 1 TABLET BY MOUTH EVERY DAY exemestane 25 mg tablet 25 mg PO DAILY Patient Comments: take 1 tablet by mouth once daily AFTER A MEAL atorvastatin 20 mg tablet 20 mg PO QHS Patient Comments: TAKE 1 TABLET BY MOUTH DAILY AT BEDTIME. FOR CHOLESTEROL amlodipine 2.5 mg tablet 5 mg PO DAILY Patient Comments: TAKE 1 TABLET BY MOUTH EVERY DAY furosemide [Lasix] 80 mg tablet 80 mg PO QODAY Ibrance 100 mg capsule 100 mg PO DAILY Patient Comments: 3 weeks on and one week off Rx Instructions: administer on days 1 through 21 of a 28-day treatment cycle biotin 5,000 mcg tablet,disintegrating 5,000 mcg PO BID cholecalciferol (vitamin D3) [Vitamin D3] 25 mcg (1,000 unit) tablet 1,000 unit PO BID [id number] [id number]-P7-K-mag--zinc 12-69-54-250 mg capsule 1 cap PO DAILY omega3-krill oil 1 tab PO DAILY melatonin 5 mg capsule 5 mg PO QHS PreserVision AREDS-2 250-90-40-1 mg capsule 1 tab PO BID Held Eliquis 5 mg tablet 5 mg PO BID Hold Instructions: Hold until she follows ENT surgeon Dr. Sukhdeep Sheth on 07/21/2023 Patient Comments: TAKE 1 TABLET BY MOUTH TWO TIMES A DAY. (RESTART 12/09/19) Rx Instructions: only taking med once a day because a nose bleed a month ago Referrals / Follow Up: Phil Negron MD [Primary Care Provider] - Sukhdeep Sheth MD [Med Staff - Active Staff] - As soon as possible (Follow-up by Thursday07/21/2023) Disposition Disposition (needs filled in before D/C Order can be placed): Home, Self Care Charges/Coding Visit Charges Inpatient E&M: 88450 Disch Hosp >30min
[2023-07-18 11:02] LABS: Anisocytosis 2+; Differential Comment SCANNED; Macrocytosis 1+; Microcytosis 1+
[2023-07-18 11:46] VITALS: BP 107/60; BP 128/78; BP 130/83; PULSE 114; PULSE 88; PULSE 89
[2023-07-18 12:54] LABS: Bedside Glucose 93 mg/dL (74-106)
== END 2023-07-18 13:33 | disposition home or self-care (01) | DRG 812 ==
LOC: ED 23:28 → PCU 23:57
PROVIDERS: Admitting Provider Family Medicine; Emergency Provider Emergency Medicine; PCP Family Medicine; Visit Provider Internal Medicine
DX: D62 Acute posthemorrhagic anemia (principal); I13.0 Hypertensive heart and chronic kidney disease with heart failure and stage 1 through stage 4 chronic kidney disease, or unspecified chronic kidney disease; I50.32 Chronic diastolic (congestive) heart failure; E11.21 Type 2 diabetes mellitus with diabetic nephropathy; C50.912 Malignant neoplasm of unspecified site of left female breast; N18.32 Chronic kidney disease, stage 3b; I48.0 Paroxysmal atrial fibrillation; E11.22 Type 2 diabetes mellitus with diabetic chronic kidney disease; I36.9 Nonrheumatic tricuspid valve disorder, unspecified; D63.1 Anemia in chronic kidney disease; E03.9 Hypothyroidism, unspecified; E78.5 Hyperlipidemia, unspecified; G47.33 Obstructive sleep apnea (adult) (pediatric); R04.0 Epistaxis; Z90.12 Acquired absence of left breast and nipple; Z79.01 Long term (current) use of anticoagulants; Z79.84 Long term (current) use of oral hypoglycemic drugs; Z79.811 Long term (current) use of aromatase inhibitors; Z79.899 Other long term (current) drug therapy
CPT/HCPCS: 36415; 80048; 80053; 82962; 85025; 85027; 86850; 86900; 86901; 86920; 86922; 94668; 97161; 97802; 99285; J7040; P9016; A4216; J2405

== ENCOUNTER → 2023-09-07 | Outpatient (CLI) | payer MEDICARE, OTHER, SELFPAY ==
--- NOTE | 2023-09-07 09:57 | PCM.CR.HP2 ---
CR - History & Physical General Arrival date:: 09/07/23 Arrival time:: 09:58 Date of Referral:: 08/19/23 Date of CR Evaluation:: 09/07/23 Referring Physician: Dr. Daniela Chan Primary Diagnosis: S/P TAVR History of Present Cardiac Event Onset Date Heart valve replacement or repair:: Yes (onset 07/29/23) Medications Ambulatory Orders Medication Instructions Recorded spironolactone 25 mg tablet 12.5 mg PO QODAY HF, HTN 07/16/23 amlodipine 2.5 mg tablet 5 mg PO DAILY HTN 07/17/23 apixaban 5 mg tablet (Eliquis) 5 mg PO BID PAF 07/17/23 atorvastatin 20 mg tablet 20 mg PO QHS HLD 07/17/23 biotin 5,000 mcg disintegrating 5,000 mcg PO BID hair 07/17/23 tablet cholecalciferol (vitamin D3) 25 1,000 unit PO BID bones 07/17/23 mcg (1,000 unit) tablet (Vitamin D3) coenzyme Q10-vit 1 cap PO DAILY heart 07/17/23 H8-A5-S-magnesium-zinc 30 mg-25 mg-25 mg-250 mg cap exemestane 25 mg tablet 25 mg PO DAILY Breast CA 07/17/23 finasteride 5 mg tablet 5 mg PO DAILY BPH 07/17/23 furosemide 40 mg tablet 40 mg PO DAILY HF, HTN 07/17/23 furosemide 80 mg tablet (Lasix) 80 mg PO QODAY chf 07/17/23 levothyroxine 100 mcg tablet 100 mcg PO .qam Hypothyroidism 07/17/23 melatonin 5 mg capsule 5 mg PO QHS sleep 07/17/23 metformin 500 mg tablet 500 mg PO BID DM 07/17/23 metoprolol succinate 25 mg 25 mg PO DAILY PAF, HTN, HF 07/17/23 tablet,extended release 24 hr omega3-krill oil 1 tab PO DAILY heart 07/17/23 palbociclib 100 mg capsule 100 mg PO DAILY cancer 07/17/23 (Ibrance) potassium chloride 20 mEq 60 meq PO DAILY HypoK 07/17/23 tablet,extended release(part/cryst) (Klor-Con M) vit C 250 mg-vit E 90 mg-zinc 40 1 tab PO BID eyes 07/17/23 mg-copper 1 [id number] capsule (PreserVision AREDS-2) Allergies Allergies anastrozole Allergy (Verified 07/16/23 18:38) Rash hydrocodone [From [place]] Allergy (Verified 07/16/23 18:38) Vomiting Penicillins Allergy (Verified 07/16/23 18:38) Rash Sleep Disorder Evaluation Hx of Sleep Apnea: Yes Do you snore loudly (louder than talking or can be heard through closed doors)?: No Do you often feel tired/ fatigued/ sleepy during daytime?: No Has anyone observed you stop breathing during sleep?: No History of Hypertension (for STOP score): Yes STOP Results: pt uses machine Advanced Directives Advanced Directives Power of Compensation Administrator: Yes Living Will: Yes Advance Directives Information Provided: Yes Advance Directives on File: No DNR Order?:: No Past Medical History Covid-19 Screening Physicial Symptoms Other Clinical Concerns Exposure Risk Pertinent Comorbidities 65 years or older:: Yes Has a serious heart condition:: Yes Past Medical Illness Past Medical History (Updated 07/26/23 @ 00:14 by Patricia Vallejo) Chronic anemia D64.9 Diabetes mellitus, type 2 E11.9 History of breast cancer Z85.3 HLD (hyperlipidemia) E78.5 HTN (hypertension) I10 Hypothyroidism E03.9 CAMRYN on CPAP G47.33 PAF (paroxysmal atrial fibrillation) I48.0 Valvular heart disease I38 Past Surgical History Past Surgical History (Updated 07/17/23 @ 00:[address] Stacey Copeland MD) History of appendectomy Z90.49 History of left mastectomy Z90.12 History of pancreatic surgery Z98.890 Small resection per patient report, benign. Status post left breast lumpectomy Z98.890 Family History Summary Family History (Updated 07/17/23 @ 00:[address] Stacey Copeland MD) Mother Breast cancer Hypertension Heart disease Father Hypertension Heart disease Social History Smoking History Smoking Status: Never smoker Hx Tobacco Use: No Hx Smoking Exposure: No Alcohol Use Alcohol Usage: Yes (wine 1-2 x a month) Substance Abuse Hx Substance Use: No Occupation Occupation (List type of work in comments):: Retired Hobbies, Recreation, Social Activities Hobbies: Other Recreational Activities: I am able to engage in all my recreational activities Social Environment Status Marital Status: Current Living Arrangements Living Environment:: Alone Children How many children do you have?: 0 Safety Do you feel safe in your surroundings?: Yes Assistance Do you need any assistance at home?: no Review of Systems Review of Systems Hints Review of Present Symptoms: Reports Shortness of Breath with Exertion, Operative Discomfort, Angina (tightness), Fatigue, Heart Arrhythmia/Irregularities, Appetite - Special Diet and Sleep - Normal; Denies Shortness of Breath at Rest, PVD, Wound Healing, Dizziness/Lightheadedness, Appetite - Normal or Sexual Changes Pain Is Patient Pain Free?: Yes Risk Factor Assessment Chief Complaint Chief Complaint: s/p TAVR Vital Signs Pulse Ox: 97 Blood Pressure: 110/64 Pulse Pulse Rate: 70 Pulse Rhythm: Irregular Hypertension Blood Pressure Sitting - Right Arm: 110/64 Diabetes Diabetic History: Type II (pt is pre diabetic) Nutrition Referral for Diabetes: No Obesity Height: 5 ft 2 in Weight:: 142 lb Weight in Pounds: 142.0 lbs Body Mass Index (BMI): 25.9 Nutritional Referral for Obesity: No Physical Inactivity Physical Inactivity: Reg Exercise 30 min/day Risk Stratification Risk Guidelines: Lowest Risk: Risk Factor for Smoking, Moderate Risk: Risk Factor for Dyslipidemia, Risk Factor for Obesity, Risk Factor for Sedentary Lifestyle and Risk Factor for Depression and Highest Risk: Risk Factor for Diabetes and Risk Factor for Hypertension For Smoking Smoking Risk Guidelines For Dyslipidemia Dyslipidemia Risk Guidelines For Diabetes Mellitus Diabetes Risk Guidelines For Obesity/Overweight Obesity/Overweight Risk Guidelines For Hypertension Hypertension Risk Guidelines For Sedentary Lifestyle Sedentary Lifestyle Risk Guidelines For Depression Depression Risk Guidelines Family History Family History (Updated 07/17/23 @ 00:[address] Stacey Copeland MD) Mother Breast cancer Hypertension Heart disease Father Hypertension Heart disease Motivation Motivation to Participate On a scale of 1 to 10, how prepared are you to commit to attending program?: 9 What do you see as barriers to successfully being able to complete the program?: no What do you see as the benefits of succesfully completing the program? In other words, what do you hope to get out of participating in the program?: get energy back Are there issues you are dealing with that will interfere with completing the program?: no Do you have a spouse or signficant other, family or friends who will help support you to complete the program?: yes
--- NOTE | 2023-09-07 10:04 | CR.ITP_ITS ---
Diagnosis General Information Admitting Diagnosis: s/p TAVR Personal Learning Style:: Audio/Visual Stage of change r/t lifestyle modifications:: Contemplation Gave educational material for:: Treating Heart Disease, How The Heart Works, What it means to have Heart Disease, How Coronary Artery Disease is Diagnosed, Heart Procedures, What Heart Medications Do, Risk Factors & Modifications, Living an Active Life, Nutrition, Emotions & Heart Disease, Stress Management & Relaxation and Sleep Disorders & Heart Disease Education/Goals Cardiac Rehabilitation Goals Personal Goals: Initial Assessment: Improve energy level, Get back to work, or to resume activities faster and Improve muscle strength and endurance Scale for measuring improvement of personal goals Diagnosis & Disease Process Outcomes/Goals: Pt IDs own risk factors & lifestyle modifications by Session 10, Verbalizes symptoms of angina & response by session 3., Pt independently manages and Other Additional Outcomes/Goals: Plan/Interventions: Assist Pt to ID & engage in lifestyle modification to reduce CVD risk, Instruct on individual risk factors, Review symptoms of angina & emergency actions, Review secondary diagnosis & identify educational needs. and Other see comment 30 day Reassessments:: Not Met 30 day Reassessments:: Not Met 30 day Reassessments:: Not Met 30 day Reassessments:: Not Met Final Reassessments:: Not Met Safety Referral to Physical Therapy: No Referral to [facility] Case Management: No Fall Risk Assessed:: Yes Assistive Devices:: Cane Exercise - Initial Assessment Visit Date of Eval: 09/07/23 (initial eval ) Mets: Pre-: >3 METS for 30 minutes by discharge, >5 METS for 30 minutes by discharge, >7 METS for 30 minutes by discharge and Unable to meet goal due to: (see comment below) Stress Test Resting HR (bpm):: 70 Blood Pressure: 110/64 EKG: A-fib Physician Prescribed Exercise Modalities: Treadmill, Rower, Airdyne, NuStep, SciFit and Lateral [employer] Frequency: 3x/week for 12 weeks [36 sessions] Intensity: 60-80% of age predicted maximum heart rate reserve Duration: 30 - 45 minutes Current METSs:: 3 Target Heart Rate:: 85-99 Resting Blood Pressure: 110/64 EKG Type: A-fib Outcomes & Goals Goals:: Verbalizes understanding of THR, RPE & goal METS by session 6, Documents in home exercise log/reports 30 min aerobic 5 day/wk by DC, Demonstrates accurate pulse taking by DC and Other additional outcome/goals: see below Intervention & Plan Exercise Program Goals: Instruct on personal THR & RPE, Instruct on MET level & personal MET goal, Show patient to take own pulse /validate performance until accurate, Instruct on home exercise and Other additional plan/int Physical Activity Home Exercise Physical Activity - Home Exercise: Safe Exercise, Warm-up, Self-monitoring, Cool-Down, Home Exercise > 30 min Daily and Sitting Time <3 hours/daily Outcomes & Goals Outcomes/Goals: Demonstrates correct Warm-up/exercise Cool-Down (S3) if = 2.5 METs, Verbalizes symptoms of exercise intolerance by Session 3 (S3), Demonstrate safe equipment use (S3) & follows exercise prescrition (6) and Other: See below Intervention & Plan Plan/Intervention: Instruct warm-up & cool-down if exercising at > 2 METs, Instruct on symptoms of exercise intolerance & actions to take, Instruct & monitor on saf, Assess intial functional capacity & safety risk and Other See below Nutrition - Initial Assessment Program Goals Nutrition Program Goals Patient has diagnosis of Hyperlipidemia (ICD E78)?: No Visit Date of Eval: 09/07/23 (initial eval ) Cholesterol/Lipids (Other Core Measures) Determine presence & major risk factors that modify LDL goal: Hypertension or hypertensive medication, Low HDL cholesterol <40 mg/dL*, Family history of premature CHD in Male < 55 years: female <65 yearsFa and Age men > 45 years; women >/= 55 years Outcomes/Goals: Pt IDs own risk factors & lifestyle modifications by Session 10, Verbalizes symptoms of angina & response by session 3., Pt independently manages and Other Additional Outcomes/Goals: Intervention/Plan: Advocate for lipid panel cholesterol medication if applicable, Instruct on personal lipid levels & lipid goals/NCEP guidelines, Instruct on cholesterol and Other additional plan/int Referral to dietitian:: No Diabetes (Other Core Measures) Diabetes Type: Not Applicable (pt is pre diabetic) Non-Insulin Dependent?: Yes Outcomes/Goals:: Able to state symptoms of, Able to state, Able to state and Other additional Intervention/Plan:: Instruct on, Refer to, Instruct on and Other Weight Mgt (Other Care) Height: 5 ft 2 in Weight:: 142 lb BMI: 25.9 Diagnosis Overweight/Obesity BMI> 30% ICD-10 E66: No Diagnosis High BMI/Morbid Obesity BMI> 35% ICD-10 Z68: No Outcomes/Goals: Pt sets, maintains & shows weight loss goal & trend during rehab and Other additional outcomes/goals Intervention/Plan: Instruct on ideal BMI & set weight loss goal w/patient, Assist pt to ID & incorporate diet changes for weight loss by S9, Refer to Structured Weight Loss program as appropriate, Encourage goal of using 250- 300dcal per session for weight loss and Other additional plan/interventions Healthy Eating Habits Will attend diet classes:: Yes Outcomes/Goals:: Consume diet rich in vegs,fruits,whole grain/high fiber,fish,lean meat, Limit sat/trans fats,cholesterol & added salts & sugars and Other additional outcome/goals: Intervention/Plan:: Assess current eating habits and Other Additional plan/interventions Education Gave educational materials for:: Signs & symptoms of hypoglycemia, Signs & symptoms of hyperglycemia, Relate diabetes to coronary artery disease and Healthy eating Core - Initial Assessment Visit Date of Eval: 09/07/23 (initial eval ) Medication Compliance Preventative Medication(s):: Statin/lipid and Beta ac H/O mental health issues: depression, anxiety, or addiction?: No Doesn?t believe in the benefits of treatment?: No Believes medications are unnecessary or harmful?: No Has a concern about medication side effects?: No Expresses concern over the cost of medications?: No Outcomes/Goals: Verbalizes medications,desired effect & common side effects @ DC, Pt self-reports following medication regimen, Keeps card in wallet w/medications listed by DC and Other additional outcome/goals: Interventions/plans: Instruct on medication effects & side effects, Review medication list w/patient every two weeks, Instruct importance of taking meds as ordered & assist problem solving and Other additional Tobacco Use Tobacco Use: Non-smoker Hypertension Hypertension Diagnosis:: Hypertension ICD-10 I10 Resting Blood Pressure:: 110/64 Citizen Of [place] [employer] Hypertension Guidelines Outcomes/Goals: Able to verbalize/achieve optimal blood pressure <130/80, Incorporates diet changes & exercise for blood pressure control by DC and Other additional outcomes/goals Interventions/plan: Instruct on optimal blood pressure, hypertension & medications, Instruct on effects of sodium, alcohol, stress, exercise &hypertension and Other additional plan/interventions Tobacco Cessation Referral Smoking Cessation Referral:: No Individual Education/Counseling:: No Education Schedule Given:: Yes Psychosocial - Initial Assess VIsit Date of Eval: 09/07/23 (initial eval ) History of previous Mental disease:: No Target Goals Target Goals Outcomes/Goals: See list Psychosocial Outcomes/Goals:: ID's personal stressors & 2 strategies to manage stress by discharge and Other Additional outcome/goals: Intervention/Plan: See List Interventions/Plan:: Assess stressors,coping strategies & signs of derpression on admission, Instruct/assist pt to develop coping & personal stress Mgt strategies, Refer to Behavioral Health if appropriate, Refer to Physician if appropriate, Instruct patient to recognize signs & symptoms of depression, Instruct patient to recog and Other additional plan/intervention Patient Health Questionnaire PHQ-9 Screening Initial Assessment: 1. Little interest or pleasure in doing things: Not at all 2. Feeling down, depressed, or hopeless: Several days 3. Trouble falling or staying asleep, or sleeping too much: Not at all 4. Feeling tired or having little energy: More than half the days 5. Poor appetite or overeating: Several days 6. Feeling bad about yourself -- or that you are a failure or have let yourself or your family down: Several days 7. Trouble concentrating on things, such as reading the newspaper or watching television: Not at all 8. Moving or speaking so slowly that other people could have noticed. Or the opposite - being so fidgety or restless that you have been moving around a lot more than usual: Several days 9. Thoughts that you would be better off , or of hurting yourself in some way: Not at all How difficult have these problems made it for you to do your work, take care of things at home, or get along with other people?: Somewhat difficult Total Score: 6 DAGO-Q SV Test Statements CAD is a disease of the arteries in the heart: I Don't Know Examples of risk factors for heart disease: True Angina is chest pain or discomfort: True The benefits of resistance training include: True Eating more meat and dairy products: False Anti-platelet medications such as aspirin are important: True The only effective way to manage stress: False An exercise warm-up slowly increases heart rate: True Prepared, processed foods usually have high sodium: True Depression is common after a heart attack: True The statin medications lower cholesterol: True To control blood pressure, lower the amount of sodium: True If someone gets chest discomfort during walking: False Transfats are partially hydrogenated vegetable oils: True Sleep apnea that is not treated increases the risk: True To control cholesterol, one should become a vegetarian: False Someone knows if he/she is exercising at the right level: I Don't Know Diabetes cannot be prevented with exercise & health eating: True Stress is a large risk for heart attack: True A diet that can help lower blood pressure is rich in: True Total Score Total Correct Responses: 16 Self-Efficacy 6-Item Scale Initial Assessment: We would like to know how confident you are in doing certain activities. Please select your confidence level for: Fatigue Select Number: 6 Physical Discomfort or Pain Select Number: 7 Emotional Distress Select Number: 8 Other Symptoms or Health Problems Select Number: 6 Different Tasks and Activities Select Number: 8 Medication Select Number: 8 Total Score:: 7 Nutrition Survey Nutrition Survey Instructions Scoring Instructions Nutrition Survey Initial: Have you lost >10 lbs over the past 2 months without trying?: No Are you following a special diet at home for diabetes, low fat, or low salt?: Yes Are you interested in meeting with a dietitian for help understanding your diet?: No Do you eat less than 3 meals a day?: Yes Do you eat fatty meats (alvarez, sausage, ribs, etc), fried foods, desserts, large amounts of salad dressings, margarine, butter, or cheese most days?: No Do you have food allergies? [Enter types in comment field]: No Do you eat in restaurants more than 3 times a week?: No Do you season food with salt, seasoning salt, or garlic salt?: No Do you used canned, boxed, frozen meals, or soups, seasoning packets?: No Total Score:: 2 Exercise - Final/Discharge Physician Prescribed Exercise Modalities: Treadmill, Rower, Airdyne, NuStep, SciFit and Lateral [place] Frequency: 3x/week for 12 weeks [36 sessions] Intensity: 60-80% of age predicted maximum heart rate reserve Current METSs:: 3 Target Heart Rate:: 85-99 Nutrition - 30-Day Assessment Weight Mgt (Other Care) Height: 5 ft 2 in Weight:: 142 lb BMI: 25.9 Nutrition - 60-Day Assessment Weight Mgt (Other Care) Height: 5 ft 2 in Weight:: 142 lb BMI: 25.9 Core - Final Assessment Hypertension Resting Blood Pressure:: 110/64 Citizen Of [place] [employer] Hypertension Guidelines Core - 60-Day Assessment Hypertension Resting Blood Pressure:: 110/64 Citizen [place] [employer] Hypertension Guidelines Psychosocial - 30-Day Assess Target Goals Target Goals Psychosocial - 60-Day Assess Target Goals Target Goals Psychosocial - 90-Day Assess Target Goals Target Goals Psychosocial - Final Assessmen Target Goals Target Goals Nutrition - 90-Day Assessment Weight Mgt (Other Care) Height: 5 ft 2 in Weight:: 142 lb BMI: 25.9 Nutrition - Final Assessment Program Goals Patient has diagnosis of Hyperlipidemia (ICD E78)?: No Weight Mgt (Other Care) Height: 5 ft 2 in Weight:: 142 lb BMI: 25.9
[2023-09-07 10:20] VITALS: BMI 25.9
[2023-09-07 10:22] VITALS: PULSE 70; O2SAT 97
[2023-09-07 10:28] VITALS: BP 110/64
[2023-09-07 10:57] VITALS: BMI 25.9
[2023-09-07 11:03] VITALS: BP 110/64
== END | disposition home or self-care (01) ==
PROVIDERS: PCP Family Medicine
DX: Z00.00 Encounter for general adult medical examination without abnormal findings (principal)

== ENCOUNTER 2023-09-18 10:15 | Outpatient (RCR) | payer MEDICARE, OTHER, SELFPAY ==
[2023-09-07 10:57] VITALS: BMI 25.9
== END 2023-09-20 23:59 ==
LOC: CR 10:15
PROVIDERS: PCP Family Medicine
DX: Z98.890 Other specified postprocedural states (principal); Z95.818 Presence of other cardiac implants and grafts
CPT/HCPCS: 93798

== ENCOUNTER 2023-10-14 10:15 | Outpatient (RCR) | payer MEDICARE, OTHER, SELFPAY ==
[2023-09-07 10:57] VITALS: BMI 25.9
--- NOTE | 2023-10-07 07:41 | PCM.CR.ITP ---
Nutrition - Initial Assessment Weight Mgt (Other Care) Height: 5 ft 2 in Weight:: 141 lb BMI: 25.7 Psychosocial - Initial Assess Target Goals Target Goals Referral to Behavioral Health PS - Interventions: Yes: Attend Stress Management Classes and No: Referral to Behavioral Health if PHQ-9 score >9:, No: Referral to [facility] and No: Referral to Physician if PHQ-9 if score is 5-9: Patient Health Questionnaire PHQ-9 Screening 30-Day Re-eval Assessment: 1. Little interest or pleasure in doing things: Not at all 2. Feeling down, depressed, or hopeless: Several days 3. Trouble falling or staying asleep, or sleeping too much: Not at all 4. Feeling tired or having little energy: Several days 5. Poor appetite or overeating: Several days 6. Feeling bad about yourself -- or that you are a failure or have let yourself or your family down: Several days 7. Trouble concentrating on things, such as reading the newspaper or watching television: Not at all 8. Moving or speaking so slowly that other people could have noticed. Or the opposite - being so fidgety or restless that you have been moving around a lot more than usual: Several days 9. Thoughts that you would be better off , or of hurting yourself in some way: Not at all How difficult have these problems made it for you to do your work, take care of things at home, or get along with other people?: Somewhat difficult Total Score: 5 Self-Efficacy 6-Item Scale 30-Day Re-eval Assessment: We would like to know how confident you are in doing certain activities. Please select your confidence level for: Fatigue Select Number: 7 Physical Discomfort or Pain Select Number: 8 Emotional Distress Select Number: 9 Other Symptoms or Health Problems Select Number: 7 Different Tasks and Activities Select Number: 8 Medication Select Number: 9 Total Score:: 8 Nutrition Survey Nutrition Survey Instructions Scoring Instructions Exercise - 30-day Assessment Visit Date of Eval: 10/07/23 Session #:: 12 Physician Prescribed Exercise Modalities: NuStep, SciFit and Lateral [employer] Frequency: 3x/week for 12 weeks [36 sessions] Intensity: 60-80% of age predicted maximum heart rate reserve Duration: 30 - 45 minutes Current METSs:: 3.5 Target Heart Rate:: 106-120 Current RPE:: 13-14 Maximum Excercise HR:: 105 Resting Blood Pressure: 118/68 Maximum Exercise Blood Pressure: 140/50 EKG Type: Atrial Fibrillation with rare PVC Current Physical Activity or Exercising minutes: 39 Outcomes & Goals Goals:: Verbalizes understanding of THR, RPE & goal METS by session 6, Documents in home exercise log/reports 30 min aerobic 5 day/wk by DC and Demonstrates accurate pulse taking by DC Intervention & Plan Exercise Program Goals: Instruct on personal THR & RPE, Instruct on MET level & personal MET goal, Show patient to take own pulse /validate performance until accurate and Instruct on home exercise 30-day Reassessments 30 day Reassessments:: Progressing Physical Activity Home Exercise Physical Activity - Home Exercise: Safe Exercise, Warm-up, Self-monitoring, Cool-Down, Home Exercise > 30 min Daily and Sitting Time <3 hours/daily Outcomes & Goals Outcomes/Goals: Demonstrates correct Warm-up/exercise Cool-Down (S3) if = 2.5 METs, Verbalizes symptoms of exercise intolerance by Session 3 (S3) and Demonstrate safe equipment use (S3) & follows exercise prescrition (6) Intervention & Plan Plan/Intervention: Instruct warm-up & cool-down if exercising at > 2 METs, Instruct on symptoms of exercise intolerance & actions to take, Instruct & monitor on saf and Assess intial functional capacity & safety risk 30-day Reassessments 30 day Reassessments:: Met Nutrition - 30-Day Assessment Program Goals Nutrition Program Goals Patient has diagnosis of Hyperlipidemia (ICD E78)?: Yes Visit Date of Eval: 10/07/23 Session #:: 12 Cholesterol/Lipids (Other Core Measures) Determine presence & major risk factors that modify LDL goal: Family history of premature CHD in Male < 55 years: female <65 yearsFa and Age men > 45 years; women >/= 55 years Outcomes/Goals: Pt IDs own risk factors & lifestyle modifications by Session 10, Verbalizes symptoms of angina & response by session 3. and Pt independently manages Intervention/Plan: Instruct on personal lipid levels & lipid goals/NCEP guidelines and Instruct on cholesterol Referral to dietitian:: Yes 30-day Reassessments:: Progressing Diabetes (Other Core Measures) Diabetes Type: Not Applicable Weight Mgt (Other Care) Not Applicable: Yes Height: 5 ft 2 in Weight:: 141 lb BMI: 25.7 Diagnosis Overweight/Obesity BMI> 30% ICD-10 E66: No Diagnosis High BMI/Morbid Obesity BMI> 35% ICD-10 Z68: No Outcomes/Goals: Pt sets, maintains & shows weight loss goal & trend during rehab Intervention/Plan: Instruct on ideal BMI & set weight loss goal w/patient 30 day Reassessments:: Met Healthy Eating Habits Will attend diet classes:: Yes Outcomes/Goals:: Consume diet rich in vegs,fruits,whole grain/high fiber,fish,lean meat and Limit sat/trans fats,cholesterol & added salts & sugars Intervention/Plan:: Assess current eating habits 30-day Reassessments:: Met Education Gave educational materials for:: Healthy eating Nutrition - 60-Day Assessment Weight Mgt (Other Care) Height: 5 ft 2 in Weight:: 141 lb BMI: 25.7 Core - 30-Day Assessment Medication Compliance Preventative Medication(s):: Aspirin, Statin/lipid and Beta ac H/O mental health issues: depression, anxiety, or addiction?: No Doesn?t believe in the benefits of treatment?: No Believes medications are unnecessary or harmful?: No Has a concern about medication side effects?: No Expresses concern over the cost of medications?: No Outcomes/Goals: Verbalizes medications,desired effect & common side effects @ DC, Pt self-reports following medication regimen and Keeps card in wallet w/medications listed by DC Interventions/plans: Instruct on medication effects & side effects, Review medication list w/patient every two weeks and Instruct importance of taking meds as ordered & assist problem solving 30-day Reassessments:: Met Tobacco Use Tobacco Use: Non-smoker Hypertension Hypertension Diagnosis:: Hypertension ICD-10 I10 Resting Blood Pressure:: 118/68 [place] [employer] Hypertension Guidelines Peak Exercise Blood Pressure:: 140/50 Outcomes/Goals: Able to verbalize/achieve optimal blood pressure <130/80 and Incorporates diet changes & exercise for blood pressure control by DC Interventions/plan: Instruct on optimal blood pressure, hypertension & medications and Instruct on effects of sodium, alcohol, stress, exercise &hypertension 30 day Reassessments:: Met Tobacco Cessation Referral Smoking Cessation Referral:: No Individual Education/Counseling:: No Education Schedule Given:: Yes Psychosocial - 30-Day Assess VIsit Date of Eval: 10/07/23 Session #:: 12 Not Applicable: Yes History of previous Mental disease:: No Target Goals Target Goals Psychosocial Test Tool Used:: PHQ-9 Questionnaire phq-9 Severity Referral to Behavioral Health PS - Interventions: Yes: Attend Stress Management Classes and No: Referral to Behavioral Health if PHQ-9 score >9:, No: Referral to [facility] and No: Referral to Physician if PHQ-9 if score is 5-9: Outcomes/Goals: See list Psychosocial Outcomes/Goals:: ID's personal stressors & 2 strategies to manage stress by discharge Intervention/Plan: See List Interventions/Plan:: Assess stressors,coping strategies & signs of derpression on admission, Instruct/assist pt to develop coping & personal stress Mgt strategies, Instruct patient to recognize signs & symptoms of depression and Instruct patient to recog 30-day Reassessments: 30 day Reassessments:: Progressing Psychosocial - 60-Day Assess Target Goals Target Goals Referral to Behavioral Health PS - Interventions: Yes: Attend Stress Management Classes and No: Referral to Behavioral Health if PHQ-9 score >9:, No: Referral to [facility] and No: Referral to Physician if PHQ-9 if score is 5-9: Outcomes/Goals: See list Psychosocial Outcomes/Goals:: ID's personal stressors & 2 strategies to manage stress by discharge Psychosocial - 90-Day Assess Target Goals Target Goals Referral to Behavioral Health PS - Interventions: Yes: Attend Stress Management Classes and No: Referral to Behavioral Health if PHQ-9 score >9:, No: Referral to [facility] and No: Referral to Physician if PHQ-9 if score is 5-9: Psychosocial - Final Assessmen Target Goals Target Goals Referral to Behavioral Health PS - Interventions: Yes: Attend Stress Management Classes and No: Referral to Behavioral Health if PHQ-9 score >9:, No: Referral to [facility] and No: Referral to Physician if PHQ-9 if score is 5-9: Nutrition - 90-Day Assessment Weight Mgt (Other Care) Height: 5 ft 2 in Weight:: 141 lb BMI: 25.7 Nutrition - Final Assessment Weight Mgt (Other Care) Height: 5 ft 2 in Weight:: 141 lb BMI: 25.7
[2023-10-07 07:47] VITALS: BP 118/68; BMI 25.7
[2023-10-07 08:05] VITALS: BP 118/68
== END 2023-10-20 23:59 ==
LOC: CR 10:15
PROVIDERS: PCP Family Medicine
DX: Z95.818 Presence of other cardiac implants and grafts (principal); Z98.890 Other specified postprocedural states
CPT/HCPCS: 93798

== ENCOUNTER 2023-11-04 10:15 | Outpatient (RCR) | payer MEDICARE, OTHER, SELFPAY ==
[2023-10-07 07:47] VITALS: BMI 25.7
[2023-10-21 00:43] VITALS: BP 118/68
--- NOTE | 2023-11-04 09:21 | CR.ITP_ITS ---
Nutrition - Initial Assessment Weight Mgt (Other Care) Height: 5 ft 2 in Weight:: 142 lb 8 oz BMI: 26.0 Psychosocial - Initial Assess Target Goals Target Goals Patient Health Questionnaire PHQ-9 Screening 60-Day Re-eval Assessment: 1. Little interest or pleasure in doing things: Not at all 2. Feeling down, depressed, or hopeless: Several days 3. Trouble falling or staying asleep, or sleeping too much: Not at all 4. Feeling tired or having little energy: Several days 5. Poor appetite or overeating: Several days 6. Feeling bad about yourself -- or that you are a failure or have let yourself or your family down: Several days 7. Trouble concentrating on things, such as reading the newspaper or watching television: Not at all 8. Moving or speaking so slowly that other people could have noticed. Or the opposite - being so fidgety or restless that you have been moving around a lot more than usual: Several days 9. Thoughts that you would be better off , or of hurting yourself in some way: Not at all How difficult have these problems made it for you to do your work, take care of things at home, or get along with other people?: Somewhat difficult Total Score: 5 Self-Efficacy 6-Item Scale 60-Day Re-eval Assessment: We would like to know how confident you are in doing certain activities. Please select your confidence level for: Fatigue Select Number: 7 Physical Discomfort or Pain Select Number: 8 Emotional Distress Select Number: 9 Other Symptoms or Health Problems Select Number: 7 Different Tasks and Activities Select Number: 8 Medication Select Number: 9 Total Score:: 8 Nutrition Survey Nutrition Survey Instructions Scoring Instructions Exercise - 60-day Assessment Visit Date of Eval: 11/04/23 Session #:: 19 Physician Prescribed Exercise Modalities: NuStep, SciFit and Lateral [place] Frequency: 3x/week for 12 weeks [36 sessions] Intensity: 60-80% of age predicted maximum heart rate reserve Duration: 30 - 45 minutes Current METSs:: 5 Target Heart Rate:: 106-120 Current RPE:: 13.5-14.5 Maximum Excercise HR:: 128 Resting Blood Pressure: 120/74 Maximum Exercise Blood Pressure: 160/70 EKG Type: a-fib with rare pvc Outcomes & Goals Goals:: Verbalizes understanding of THR, RPE & goal METS by session 6, Documents in home exercise log/reports 30 min aerobic 5 day/wk by DC, Demonstrates accurate pulse taking by DC and Other additional outcome/goals: see below Intervention & Plan Exercise Program Goals: Instruct on personal THR & RPE, Instruct on MET level & personal MET goal, Show patient to take own pulse /validate performance until accurate, Instruct on home exercise and Other additional plan/int 30-day Reassessments 30 day Reassessments:: Progressing Reassessment Notes & Comments:: THR explained Physical Activity Home Exercise Physical Activity - Home Exercise: Safe Exercise, Warm-up, Self-monitoring, Cool-Down, Home Exercise > 30 min Daily and Sitting Time <3 hours/daily Outcomes & Goals Outcomes/Goals: Demonstrates correct Warm-up/exercise Cool-Down (S3) if = 2.5 METs, Verbalizes symptoms of exercise intolerance by Session 3 (S3), Demonstrate safe equipment use (S3) & follows exercise prescrition (6) and Other: See below Intervention & Plan Plan/Intervention: Instruct warm-up & cool-down if exercising at > 2 METs, Instruct on symptoms of exercise intolerance & actions to take, Instruct & monitor on saf, Assess intial functional capacity & safety risk and Other See below 30-day Reassessments 30 day Reassessments:: Progressing Reassessment Notes & Comments:: cool down encouraged Nutrition - 30-Day Assessment Weight Mgt (Other Care) Height: 5 ft 2 in Weight:: 142 lb 8 oz BMI: 26.0 Nutrition - 60-Day Assessment Program Goals Nutrition Program Goals Patient has diagnosis of Hyperlipidemia (ICD E78)?: Yes Visit Date of Eval: 11/04/23 Session #:: 19 Cholesterol/Lipids (Other Core Measures) Determine presence & major risk factors that modify LDL goal: Hypertension or hypertensive medication, Low HDL cholesterol <40 mg/dL*, Family history of premature CHD in Male < 55 years: female <65 yearsFa and Age men > 45 years; women >/= 55 years Outcomes/Goals: Pt IDs own risk factors & lifestyle modifications by Session 10, Verbalizes symptoms of angina & response by session 3., Pt independently manages and Other Additional Outcomes/Goals: Intervention/Plan: Advocate for lipid panel cholesterol medication if applicable, Instruct on personal lipid levels & lipid goals/NCEP guidelines, Instruct on cholesterol and Other additional plan/int Referral to dietitian:: Yes 30-day Reassessments:: Progressing Reassessment Notes & Comments:: pt to see fine arts instructor Diabetes (Other Core Measures) Diabetes Type: Not Applicable Weight Mgt (Other Care) Height: 5 ft 2 in Weight:: 142 lb 8 oz BMI: 26.0 Diagnosis Overweight/Obesity BMI> 30% ICD-10 E66: No Diagnosis High BMI/Morbid Obesity BMI> 35% ICD-10 Z68: No Outcomes/Goals: Pt sets, maintains & shows weight loss goal & trend during rehab and Other additional outcomes/goals Intervention/Plan: Instruct on ideal BMI & set weight loss goal w/patient, Assist pt to ID & incorporate diet changes for weight loss by S9, Refer to Structured Weight Loss program as appropriate, Encourage goal of using 250- 300dcal per session for weight loss and Other additional plan/interventions 30 day Reassessments:: Progressing Reassessment Notes & Comments:: pt to meet with fine arts instructor Healthy Eating Habits Will attend diet classes:: Yes Outcomes/Goals:: Consume diet rich in vegs,fruits,whole grain/high fiber,fish,lean meat, Limit sat/trans fats,cholesterol & added salts & sugars and Other additional outcome/goals: Intervention/Plan:: Assess current eating habits and Other Additional plan/interventions 30-day Reassessments:: Progressing Reassessment Notes & Comments:: pt to attend nutrition class Education Gave educational materials for:: Signs & symptoms of hypoglycemia, Signs & symptoms of hyperglycemia, Relate diabetes to coronary artery disease and Healthy eating Core - 60-Day Assessment Visit Date of Eval: 11/04/23 Session #:: 19 Medication Compliance Preventative Medication(s):: Aspirin, Statin/lipid and Beta ac H/O mental health issues: depression, anxiety, or addiction?: No Doesn?t believe in the benefits of treatment?: No Believes medications are unnecessary or harmful?: No Has a concern about medication side effects?: No Expresses concern over the cost of medications?: No Outcomes/Goals: Verbalizes medications,desired effect & common side effects @ DC, Pt self-reports following medication regimen, Keeps card in wallet w/medications listed by DC and Other additional outcome/goals: Interventions/plans: Instruct on medication effects & side effects, Review medication list w/patient every two weeks, Instruct importance of taking meds as ordered & assist problem solving and Other additional 30-day Reassessments:: Progressing Reassessment Notes & Comments:: pt encouraged to take her meds Tobacco Use Tobacco Use: Non-smoker Hypertension Hypertension Diagnosis:: Hypertension ICD-10 I10 Resting Blood Pressure:: 120/74 [place] [employer] Hypertension Guidelines Peak Exercise Blood Pressure:: 160/70 Outcomes/Goals: Able to verbalize/achieve optimal blood pressure <130/80, Incorporates diet changes & exercise for blood pressure control by DC and Other additional outcomes/goals Interventions/plan: Instruct on optimal blood pressure, hypertension & medications, Instruct on effects of sodium, alcohol, stress, exercise &hypertension and Other additional plan/interventions 30 day Reassessments:: Met Tobacco Cessation Referral Smoking Cessation Referral:: No Individual Education/Counseling:: No Education Schedule Given:: Yes Psychosocial - 30-Day Assess Target Goals Target Goals Outcomes/Goals: See list Psychosocial Outcomes/Goals:: ID's personal stressors & 2 strategies to manage stress by discharge and Other Additional outcome/goals: Psychosocial - 60-Day Assess VIsit Date of Eval: 11/04/23 History of previous Mental disease:: No Target Goals Target Goals Outcomes/Goals: See list Psychosocial Outcomes/Goals:: ID's personal stressors & 2 strategies to manage stress by discharge and Other Additional outcome/goals: Intervention/Plan: See List Interventions/Plan:: Assess stressors,coping strategies & signs of derpression on admission, Instruct/assist pt to develop coping & personal stress Mgt strategies, Refer to Behavioral Health if appropriate, Refer to Physician if appropriate, Instruct patient to recognize signs & symptoms of depression, Instruct patient to recog and Other additional plan/intervention 30-day Reassessments: 30 day Reassessments:: Met Psychosocial - 90-Day Assess Target Goals Target Goals Psychosocial - Final Assessmen Target Goals Target Goals Nutrition - 90-Day Assessment Weight Mgt (Other Care) Height: 5 ft 2 in Weight:: 142 lb 8 oz BMI: 26.0 Nutrition - Final Assessment Weight Mgt (Other Care) Height: 5 ft 2 in Weight:: 142 lb 8 oz BMI: 26.0
[2023-11-04 09:33] VITALS: BP 120/74; BMI 26.0
== END 2023-11-20 23:59 ==
LOC: CR 10:15
PROVIDERS: PCP Family Medicine
DX: Z98.890 Other specified postprocedural states
CPT/HCPCS: 93798

== ENCOUNTER 2023-12-16 10:15 | Outpatient (RCR) | payer MEDICARE, OTHER, SELFPAY ==
[2023-11-21 01:02] VITALS: BP 118/68; BP 120/74
--- NOTE | 2023-12-04 04:50 | PCM.CR.ITP ---
Exercise - Initial Assessment Physician Prescribed Exercise Modalities: SciFit Stepper and SciFit Pro-II Ergometer Nutrition - Initial Assessment Weight Mgt (Other Care) Height: 5 ft 2 in Weight:: 142 lb BMI: 25.9 Psychosocial - Initial Assess Target Goals Target Goals Referral to Behavioral Health PS - Interventions: Yes: Attend Stress Management Classes and No: Referral to Behavioral Health if PHQ-9 score >9:, No: [facility]erral to [facility] and No: Referral to Physician if PHQ-9 if score is 5-9: Patient Health Questionnaire PHQ-9 Screening 90-Day Re-eval Assessment: 1. Little interest or pleasure in doing things: Not at all 2. Feeling down, depressed, or hopeless: Not at all 3. Trouble falling or staying asleep, or sleeping too much: Not at all 4. Feeling tired or having little energy: Several days 5. Poor appetite or overeating: Not at all 6. Feeling bad about yourself -- or that you are a failure or have let yourself or your family down: Not at all 7. Trouble concentrating on things, such as reading the newspaper or watching television: Not at all 8. Moving or speaking so slowly that other people could have noticed. Or the opposite - being so fidgety or restless that you have been moving around a lot more than usual: Several days 9. Thoughts that you would be better off , or of hurting yourself in some way: Not at all How difficult have these problems made it for you to do your work, take care of things at home, or get along with other people?: Somewhat difficult Total Score: 2 Self-Efficacy 6-Item Scale 90-Day Re-eval Assessment: We would like to know how confident you are in doing certain activities. Please select your confidence level for: Fatigue Select Number: 7 Physical Discomfort or Pain Select Number: 8 Emotional Distress Select Number: 9 Other Symptoms or Health Problems Select Number: 7 Different Tasks and Activities Select Number: 9 Medication Select Number: 9 Total Score:: 8 Nutrition Survey Nutrition Survey Instructions Scoring Instructions Exercise - 30-day Assessment Physician Prescribed Exercise Modalities: SciFit Stepper and SciFit Pro-II Ergometer Exercise - 60-day Assessment Physician Prescribed Exercise Modalities: SciFit Stepper and SciFit Pro-II Ergometer Exercise - 90-day Assessment Visit Date of Eval: 12/04/23 Session #:: 27 Comments:: Patient started September 09, 2023 and has missed 13 scheduled sessions to date. Physician Prescribed Exercise Modalities: SciFit Stepper and SciFit Pro-II Ergometer Frequency: 3x/week for 12 weeks [36 sessions] Intensity: 60-80% of age predicted maximum heart rate reserve Duration: 30 - 45 minutes Current METSs:: 5.0 Target Heart Rate:: 106-120 Current RPE:: 13-14 Maximum Excercise HR:: 118 Resting Blood Pressure: 102/60 Maximum Exercise Blood Pressure: 148/62 EKG Type: Atrial fib with rare PVCs. Current Physical Activity or Exercising minutes: 35:32 Outcomes & Goals Goals:: Verbalizes understanding of THR, RPE & goal METS by session 6, Documents in home exercise log/reports 30 min aerobic 5 day/wk by DC and Demonstrates accurate pulse taking by DC Intervention & Plan Exercise Program Goals: Instruct on personal THR & RPE, Instruct on MET level & personal MET goal, Show patient to take own pulse /validate performance until accurate and Instruct on home exercise 30-day Reassessments 30 day Reassessments:: Met Physical Activity Home Exercise Physical Activity - Home Exercise: Safe Exercise, Warm-up, Self-monitoring, Cool-Down, Home Exercise > 30 min Daily and Sitting Time <3 hours/daily Outcomes & Goals Outcomes/Goals: Demonstrates correct Warm-up/exercise Cool-Down (S3) if = 2.5 METs, Verbalizes symptoms of exercise intolerance by Session 3 (S3) and Demonstrate safe equipment use (S3) & follows exercise prescrition (6) Intervention & Plan Plan/Intervention: Instruct warm-up & cool-down if exercising at > 2 METs, Instruct on symptoms of exercise intolerance & actions to take, Instruct & monitor on saf and Assess intial functional capacity & safety risk 30-day Reassessments 30 day Reassessments:: Met Exercise - Final/Discharge Physician Prescribed Exercise Modalities: SciFit Stepper and SciFit Pro-II Ergometer Nutrition - 30-Day Assessment Weight Mgt (Other Care) Height: 5 ft 2 in Weight:: 142 lb BMI: 25.9 Nutrition - 60-Day Assessment Weight Mgt (Other Care) Height: 5 ft 2 in Weight:: 142 lb BMI: 25.9 Core - 90 Day Assessment Visit Date of Eval: 12/04/23 Session #:: 27 Medication Compliance Preventative Medication(s):: Aspirin, Statin/lipid, Beta ac and Eliquis H/O mental health issues: depression, anxiety, or addiction?: No Doesn?t believe in the benefits of treatment?: No Believes medications are unnecessary or harmful?: No Has a concern about medication side effects?: No Expresses concern over the cost of medications?: No Outcomes/Goals: Verbalizes medications,desired effect & common side effects @ DC, Pt self-reports following medication regimen and Keeps card in wallet w/medications listed by DC Interventions/plans: Instruct on medication effects & side effects, Review medication list w/patient every two weeks and Instruct importance of taking meds as ordered & assist problem solving 30-day Reassessments:: Met Tobacco Use Tobacco Use: Non-smoker Hypertension Hypertension Diagnosis:: Hypertension ICD-10 I10 Resting Blood Pressure:: 102/60 [place] [employer] Hypertension Guidelines Peak Exercise Blood Pressure:: 148/62 Outcomes/Goals: Able to verbalize/achieve optimal blood pressure <130/80 and Incorporates diet changes & exercise for blood pressure control by DC Interventions/plan: Instruct on optimal blood pressure, hypertension & medications and Instruct on effects of sodium, alcohol, stress, exercise &hypertension 30 day Reassessments:: Met Tobacco Cessation Referral Smoking Cessation Referral:: No Individual Education/Counseling:: No Education Schedule Given:: Yes Psychosocial - 30-Day Assess Target Goals Target Goals Referral to Behavioral Health PS - Interventions: Yes: Attend Stress Management Classes and No: Referral to Behavioral Health if PHQ-9 score >9:, No: Referral to [facility] and No: Referral to Physician if PHQ-9 if score is 5-9: Psychosocial - 60-Day Assess Target Goals Target Goals Referral to Behavioral Health PS - Interventions: Yes: Attend Stress Management Classes and No: Referral to Behavioral Health if PHQ-9 score >9:, No: Referral to [facility] and No: Referral to Physician if PHQ-9 if score is 5-9: Psychosocial - 90-Day Assess VIsit Date of Eval: 12/04/23 Session #:: 27 Not Applicable: Yes History of previous Mental disease:: No Target Goals Target Goals Psychosocial Test Tool Used:: PHQ-9 Questionnaire phq-9 Severity Referral to Behavioral Health PS - Interventions: Yes: Attend Stress Management Classes and No: Referral to Behavioral Health if PHQ-9 score >9:, No: Referral to [facility] and No: Referral to Physician if PHQ-9 if score is 5-9: Outcomes/Goals: See list Psychosocial Outcomes/Goals:: ID's personal stressors & 2 strategies to manage stress by discharge Intervention/Plan: See List Interventions/Plan:: Assess stressors,coping strategies & signs of derpression on admission, Instruct/assist pt to develop coping & personal stress Mgt strategies, Instruct patient to recognize signs & symptoms of depression and Instruct patient to recog 30-day Reassessments: 30 day Reassessments:: Met Psychosocial - Final Assessmen Target Goals Target Goals Referral to Behavioral Health PS - Interventions: Yes: Attend Stress Management Classes and No: Referral to Behavioral Health if PHQ-9 score >9:, No: Referral to [facility] and No: Referral to Physician if PHQ-9 if score is 5-9: Nutrition - 90-Day Assessment Program Goals Nutrition Program Goals Patient has diagnosis of Hyperlipidemia (ICD E78)?: Yes Visit Date of Eval: 12/04/23 Session #:: 27 Cholesterol/Lipids (Other Core Measures) Determine presence & major risk factors that modify LDL goal: Hypertension or hypertensive medication and Age men > 45 years; women >/= 55 years Outcomes/Goals: Pt IDs own risk factors & lifestyle modifications by Session 10, Verbalizes symptoms of angina & response by session 3. and Pt independently manages Intervention/Plan: Instruct on personal lipid levels & lipid goals/NCEP guidelines and Instruct on cholesterol Referral to dietitian:: Yes 30-day Reassessments:: Progressing Diabetes (Other Core Measures) Diabetes Type: Not Applicable Weight Mgt (Other Care) Not Applicable: Yes Height: 5 ft 2 in Weight:: 142 lb BMI: 25.9 Diagnosis Overweight/Obesity BMI> 30% ICD-10 E66: No Diagnosis High BMI/Morbid Obesity BMI> 35% ICD-10 Z68: No Outcomes/Goals: Pt sets, maintains & shows weight loss goal & trend during rehab Intervention/Plan: Instruct on ideal BMI & set weight loss goal w/patient 30 day Reassessments:: Met Healthy Eating Habits Will attend diet classes:: Yes Outcomes/Goals:: Consume diet rich in vegs,fruits,whole grain/high fiber,fish,lean meat and Limit sat/trans fats,cholesterol & added salts & sugars Intervention/Plan:: Assess current eating habits 30-day Reassessments:: Met Education Gave educational materials for:: Healthy eating Nutrition - Final Assessment Weight Mgt (Other Care) Height: 5 ft 2 in Weight:: 142 lb BMI: 25.9
[2023-12-04 05:01] VITALS: BP 102/60; BMI 25.9
== END 2023-12-20 23:59 ==
LOC: CR 10:15
PROVIDERS: PCP Family Medicine
DX: Z98.890 Other specified postprocedural states
CPT/HCPCS: 93798

== ENCOUNTER 2024-01-04 10:15 | Outpatient (RCR) | payer MEDICARE, OTHER, SELFPAY ==
[2023-12-21 00:14] VITALS: BP 102/60; BP 118/68; BP 120/74; BMI 26.0
--- NOTE | 2024-01-04 11:37 | CR.ITP_ITS ---
Exercise - Initial Assessment Physician Prescribed Exercise Modalities: Treadmill, SciFit Stepper and SciFit Pro-II Ergometer Nutrition - Initial Assessment Weight Mgt (Other Care) Height: 5 ft 2 in Weight:: 141 lb 8 oz BMI: 25.9 Core - Initial Assessment Hypertension Resting Blood Pressure:: 116/80 [employer] [employer] Hypertension Guidelines Psychosocial - Initial Assess Target Goals Target Goals Nutrition Survey Nutrition Survey Instructions Scoring Instructions Exercise - 30-day Assessment Physician Prescribed Exercise Modalities: Treadmill, SciFit Stepper and SciFit Pro-II Ergometer Exercise - 60-day Assessment Physician Prescribed Exercise Modalities: Treadmill, SciFit Stepper and SciFit Pro-II Ergometer Exercise - 90-day Assessment Physician Prescribed Exercise Modalities: Treadmill, SciFit Stepper and SciFit Pro-II Ergometer Exercise - Final/Discharge Visit Date of Eval: 01/04/24 Session #:: 36 Physician Prescribed Exercise Modalities: Treadmill, SciFit Stepper and SciFit Pro-II Ergometer Frequency: 3x/week for 12 weeks [36 sessions] Intensity: 60-80% of age predicted maximum heart rate reserve Duration: 30 - 45 minutes Current METSs:: 5 Target Heart Rate:: 106-120 Maximum Heart Rate:: 118 Resting Blood Pressure: 116/80 Maximum Exercise Blood Pressure: 138/50 EKG Type: A-fib with rare PVC Outcomes & Goals Goals:: Verbalizes understanding of THR, RPE & goal METS by session 6, Documents in home exercise log/reports 30 min aerobic 5 day/wk by DC, Demonstrates accurate pulse taking by DC and Other additional outcome/goals: see below Intervention & Plan Exercise Program Goals: Instruct on personal THR & RPE, Instruct on MET level & personal MET goal, Show patient to take own pulse /validate performance until accurate, Instruct on home exercise and Other additional plan/int 30-day Reassessments 30 day Reassessments:: Met Physical Activity Home Exercise Physical Activity - Home Exercise: Safe Exercise, Warm-up, Self-monitoring, Cool-Down, Home Exercise > 30 min Daily and Sitting Time <3 hours/daily Outcomes & Goals Outcomes/Goals: Demonstrates correct Warm-up/exercise Cool-Down (S3) if = 2.5 METs, Verbalizes symptoms of exercise intolerance by Session 3 (S3), Demonstrate safe equipment use (S3) & follows exercise prescrition (6) and Other: See below Intervention & Plan Plan/Intervention: Instruct warm-up & cool-down if exercising at > 2 METs, Instruct on symptoms of exercise intolerance & actions to take, Instruct & monitor on saf, Assess intial functional capacity & safety risk and Other See below 30-day Reassessments 30 day Reassessments:: Met Nutrition - 30-Day Assessment Weight Mgt (Other Care) Height: 5 ft 2 in Weight:: 141 lb 8 oz BMI: 25.9 Nutrition - 60-Day Assessment Weight Mgt (Other Care) Height: 5 ft 2 in Weight:: 141 lb 8 oz BMI: 25.9 Core - Final Assessment Visit Date of Eval: 01/04/24 Session #:: 36 Medication Compliance Preventative Medication(s):: Statin/lipid, Beta ac and Eliquis H/O mental health issues: depression, anxiety, or addiction?: No Doesn?t believe in the benefits of treatment?: No Believes medications are unnecessary or harmful?: No Has a concern about medication side effects?: No Expresses concern over the cost of medications?: No Outcomes/Goals: Verbalizes medications,desired effect & common side effects @ DC, Pt self-reports following medication regimen, Keeps card in wallet w/medications listed by DC and Other additional outcome/goals: Interventions/plans: Instruct on medication effects & side effects, Review medication list w/patient every two weeks, Instruct importance of taking meds as ordered & assist problem solving and Other additional 30-day Reassessments:: Met Tobacco Use Tobacco Use: Non-smoker Hypertension Hypertension Diagnosis:: Hypertension ICD-10 I10 Resting Blood Pressure:: 116/80 [employer] Hypertension Guidelines Peak Exercise Blood Pressure:: 138/50 Outcomes/Goals: Able to verbalize/achieve optimal blood pressure <130/80, Incorporates diet changes & exercise for blood pressure control by DC and Other additional outcomes/goals Interventions/plan: Instruct on optimal blood pressure, hypertension & medications, Instruct on effects of sodium, alcohol, stress, exercise &hypertension and Other additional plan/interventions 30 day Reassessments:: Met Tobacco Cessation Referral Smoking Cessation Referral:: No Individual Education/Counseling:: No Education Schedule Given:: Yes Core - 60-Day Assessment Hypertension Resting Blood Pressure:: 116/80 [employer] [employer] Hypertension Guidelines Psychosocial - 30-Day Assess Target Goals Target Goals Psychosocial - 60-Day Assess Target Goals Target Goals Psychosocial - 90-Day Assess Target Goals Target Goals Psychosocial - Final Assessmen VIsit Date of Eval: 01/04/24 Session #:: 36 Target Goals Target Goals Outcomes/Goals: See list Psychosocial Outcomes/Goals:: ID's personal stressors & 2 strategies to manage stress by discharge and Other Additional outcome/goals: Intervention/Plan: See List Interventions/Plan:: Assess stressors,coping strategies & signs of derpression on admission, Instruct/assist pt to develop coping & personal stress Mgt strategies, Refer to Behavioral Health if appropriate, Refer to Physician if appropriate, Instruct patient to recognize signs & symptoms of depression, Instruct patient to recog and Other additional plan/intervention 30-day Reassessments: 30 day Reassessments:: Met Nutrition - 90-Day Assessment Weight Mgt (Other Care) Height: 5 ft 2 in Weight:: 141 lb 8 oz BMI: 25.9 Nutrition - Final Assessment Visit Date of Assessment:: 01/04/24 Session #:: 36 Cholesterol/Lipids (Other Core Measures) Determine presence & major risk factors that modify LDL goal: Hypertension or hypertensive medication, Low HDL cholesterol <40 mg/dL*, Family history of premature CHD in Male < 55 years: female <65 yearsFa and Age men > 45 years; women >/= 55 years Outcomes/Goals: Pt IDs own risk factors & lifestyle modifications by Session 10, Verbalizes symptoms of angina & response by session 3., Pt independently manages and Other Additional Outcomes/Goals: 30-day Reassessments:: Met Weight Mgt (Other Care) Height: 5 ft 2 in Weight:: 141 lb 8 oz BMI: 25.9 Diagnosis Overweight/Obesity BMI> 30% ICD-10 E66: No Diagnosis High BMI/Morbid Obesity BMI> 35% ICD-10 Z68: No Outcomes/Goals: Pt sets, maintains & shows weight loss goal & trend during rehab and Other additional outcomes/goals Intervention/Plan: Instruct on ideal BMI & set weight loss goal w/patient, Assist pt to ID & incorporate diet changes for weight loss by S9, Refer to Structured Weight Loss program as appropriate, Encourage goal of using 250- 300dcal per session for weight loss and Other additional plan/interventions 30 day Reassessments:: Met Healthy Eating Habits Will attend diet classes:: Yes Outcomes/Goals:: Consume diet rich in vegs,fruits,whole grain/high fiber,fish,lean meat, Limit sat/trans fats,cholesterol & added salts & sugars and Other additional outcome/goals: Intervention/Plan:: Assess current eating habits and Other Additional plan/interventions 30-day Reassessments:: Met Education Gave educational materials for:: Signs & symptoms of hypoglycemia, Signs & symptoms of hyperglycemia, Relate diabetes to coronary artery disease and Healthy eating
[2024-01-04 11:45] VITALS: BP 116/80; BMI 25.9
== END 2024-01-20 23:59 ==
LOC: CR 10:15
PROVIDERS: PCP Family Medicine
DX: Z98.890 Other specified postprocedural states
CPT/HCPCS: 93798

== ENCOUNTER 2025-01-23 22:08 | Emergency (ER) | payer MEDICARE, OTHER, SELFPAY ==
[2025-01-23 22:08] VITALS: BMI 25.9
[2025-01-23 22:09] VITALS: BP 126/70; PULSE 95; RESP 16; TEMP 36.4; O2SAT 97; BMI 23.9
[2025-01-23 22:38] VITALS: BP 107/65; BP 112/65; BP 120/76; PULSE 73; PULSE 81; PULSE 90
--- NOTE | 2025-01-23 22:38 | EKG12_ITS ---
Test Reason : DYSRHYTHMIA Blood Pressure : */* mmHG Vent. Rate : 79 BPM Atrial Rate : * BPM P-R Int : * ms QRS Dur : 90 ms QT Int : 380 ms P-R-T Axes : * -29 91 degrees QTcB Int : 435 ms Atrial fibrillation Septal infarct (cited on or before 25-Jun-2023) Abnormal ECG Confirmed by ISRA RUSSO, PREET ([id number]), news video editor ANGÉLICA BA ([id number]) on 01/25/2025 9:02:04 AM Referred By: Confirmed By: PREET DHALIWAL MD
--- NOTE | 2025-01-23 22:38 | CT_ITS ---
PROCEDURE: BRAIN/HEAD WITHOUT CONTRAST 01/23/2025 REASON FOR EXAM: DIZZINESS TECHNIQUE: BRAIN/HEAD WITHOUT CONTRAST Coronal and Sagittal reconstruction series were provided. One or more dose reduction techniques were used (e.g., Automated exposure control, adjustment of the mA and/or kV according to patient size, use of iterative reconstruction technique. RADIATION DOSE SUMMARY: CTDlvol: 45 mGy DLP: 779 mGycm COMPARISON: No FINDINGS: Diffuse atrophy. No acute abnormal brain densities. No intracranial hemorrhage. No hydrocephalus or midline shift. No acute scalp or skull pathology. Bilateral lens extraction. Clear sinuses, mastoid air cells, middle ear cavities. 5 mm colloid cyst incidentally noted. CT/Brain/Head without Contrast IMPRESSION: No acute intracranial findings. Reading Location: [place] [id number]
[2025-01-23 22:53] LABS: Hematocrit 35.6 % (37-47); Hemoglobin 12.5 g/dL (12.0-15.0); Immature Granulocytes Count 0.030 X10^3/uL (0.0-0.0); Mean Corp Hgb Conc 35.1 g/dL (32-36); Mean Corpuscular Volume 104.4 fL (81-99); Mean Platelet Vol. 9.1 fl (6.2-12.0); NRBC Flagged by Analyzer 0 % (0-5); POSITIVE MORPHOLOGY YES; Platelet Count 293 K/mm3 (150-450); RBC Distribution Width CV 15.1 % (11.6-14.6); RBC Distribution Width SD 58.4 fl (35.1-43.9); Red Blood Count 3.41 M/mm3 (4.2-5.4); White Blood Count 3.6 K/mm3 (4.4-11.0)
[2025-01-23 22:57] LABS: Differential Indicated SCAN CRITERIA MET
--- NOTE | 2025-01-23 23:02 | EX.ED.DYSGE1 ---
HPI History of Present Illness Chief Complaint: Dizziness Informant: patient and friend Narrative Narrative: Patient is an 80-year-old female with past med history of hypertension hyperlipidemia and atrial fibrillation currently on Eliquis. She states that roughly 3 to 4 hours ago she was taking out the trash and she was kind of bent over and as she stood up to walk began to feel dizzy. She describes a sensation as initially lightheaded and then progressing to a sense of motion. She states that after this occurred she had a bout of sweating and vomiting. She states that she was able to make it to her bed and she laid down and took a nap. She states when she awoke the symptoms had resolved but she still felt overall fatigued and drained and therefore comes in for evaluation. She states she had her smart watch on at the time of the event and denies that her heart rate was elevated or slow. She states other than the bout of vomiting that occurred with the dizzy sensation she has not had bouts of vomiting or diarrhea or dysuria and she reports she is felt normal until this event. She denies any chest pain associated with it. [facility] Medical History (Updated 01/24/25 @ 01:[address] Milton Lorenzo, DO) Afib Diabetes mellitus, type 2 Hypothyroidism History of breast cancer CAMRYN on CPAP Valvular heart disease HLD (hyperlipidemia) PAF (paroxysmal atrial fibrillation) Chronic anemia HTN (hypertension) Home Medications ?Medication ?Instructions ?Recorded ?Last Taken ?Type spironolactone 25 mg tablet 12.5 mg PO QODAY HF, HTN 07/16/23 Unknown History amlodipine 2.5 mg tablet 5 mg PO DAILY HTN 07/17/23 Unknown History apixaban 5 mg tablet (Eliquis) 5 mg PO BID PAF 07/17/23 Unknown History atorvastatin 20 mg tablet 20 mg PO QHS HLD 07/17/23 Unknown History biotin 5,000 mcg disintegrating 5,000 mcg PO BID hair 07/17/23 Unknown History tablet cholecalciferol (vitamin D3) 25 1,000 unit PO BID bones 07/17/23 Unknown History mcg (1,000 unit) tablet (Vitamin D3) coenzyme Q10-vit 1 cap PO DAILY heart 07/17/23 Unknown History N6-D2-N-magnesium-zinc 30 mg-25 mg-25 mg-250 mg cap exemestane 25 mg tablet 25 mg PO DAILY Breast CA 07/17/23 Unknown History furosemide 40 mg tablet 40 mg PO DAILY HF, HTN 07/17/23 Unknown History furosemide 80 mg tablet (Lasix) 80 mg PO QODAY chf 07/17/23 Unknown History melatonin 5 mg capsule 5 mg PO QHS sleep 07/17/23 Unknown History metformin 500 mg tablet 500 mg PO BID DM 07/17/23 Unknown History metoprolol succinate 25 mg 25 mg PO DAILY PAF, HTN, HF 07/17/23 Unknown History tablet,extended release 24 hr omega3-krill oil 1 tab PO DAILY heart 07/17/23 Unknown History palbociclib 100 mg capsule 100 mg PO DAILY cancer 07/17/23 Unknown History (Ibrance) potassium chloride 20 mEq 60 meq PO DAILY HypoK 07/17/23 Unknown History tablet,extended release(part/cryst) (Klor-Con M) vit C 250 mg-vit E 90 mg-zinc 40 1 tab PO BID eyes 07/17/23 Unknown History mg-copper 1 [id number] capsule (PreserVision AREDS-2) ramipril 2.5 mg capsule 2.5 mg PO DAILY 01/23/25 Unknown History Allergy/AdvReac Type Severity Reaction Status Date / Time anastrozole Allergy Rash Verified 07/16/23 18:38 hydrocodone (From [place]) Allergy Vomiting Verified 07/16/23 18:38 Penicillins Allergy Rash Verified 07/16/23 18:38 Family History Mother Breast cancer Hypertension Heart disease Father Hypertension Heart disease Surgical History (Updated 01/23/25 @ 22:20 by Pankaj Starr) H/O tricuspid valve repair History of appendectomy History of pancreatic surgery Status post left breast lumpectomy History of left mastectomy Social History household members: none housing: house Smoking Status: Never smoker alcohol intake: never substance use type: does not use ROS ROS ED Constitutional Constitutional ED: Reports sweats; Denies chills or fever(s) ENT ENT ED: Denies ear pain, rhinorrhea or sore throat Cardiovascular Cardiovascular: Denies chest pain, palpitations or racing heartbeat Respiratory/Chest Respiratory/Chest: Denies cough or dyspnea Gastrointestinal Gastrointestinal: Reports nausea and vomiting; Denies abdominal pain or diarrhea Genitourinary Genitourinary ED: Denies dysuria Musculoskeletal Musculoskeletal: Denies myalgias Integumentary Denies rash Neurologic Neurologic: Reports other Details: Positive dizziness ; Denies headache(s) Hematologic/Lymphatic Hematologic/Lymphatic: Reports easy bleeding and easy bruising EXAM Physical Exam Const Vital Signs: 01/23/25 22:09 01/23/25 22:38 01/23/25 23:08 Temperature 97.6 F L Temperature Source Temporal Pulse Rate 95 72 Pulse Rate [Lying] 73 Pulse Rate [Sitting (for 1 minute prior to obtaining)] 90 Pulse Rate [Standing (for 1 minute prior to obtaining)] 81 Respiratory Rate 16 16 Blood Pressure 126/70 H 117/61 Blood Pressure [Lying] 107/65 Blood Pressure [Sitting (for 1 minute prior to obtaining)] 112/65 Blood Pressure [Standing (for 1 minute prior to obtaining)] 120/76 Blood Pressure Mean 88 79 Blood Pressure Mean [Lying] 79 Blood Pressure Mean [Sitting (for 1 minute prior to obtaining)] 80 Blood Pressure Mean [Standing (for 1 minute prior to obtaining)] 90 Pulse Ox 97 98 Oxygen Delivery Method Room Air Room Air 01/23/25 23:58 01/24/25 00:00 Temperature 97.6 F L Temperature Source Pulse Rate 64 64 Pulse Rate [Lying] Pulse Rate [Sitting (for 1 minute prior to obtaining)] Pulse Rate [Standing (for 1 minute prior to obtaining)] Respiratory Rate 16 16 Blood Pressure 107/67 107/67 Blood Pressure [Lying] Blood Pressure [Sitting (for 1 minute prior to obtaining)] Blood Pressure [Standing (for 1 minute prior to obtaining)] Blood Pressure Mean 80 80 Blood Pressure Mean [Lying] Blood Pressure Mean [Sitting (for 1 minute prior to obtaining)] Blood Pressure Mean [Standing (for 1 minute prior to obtaining)] Pulse Ox 98 98 Oxygen Delivery Method Room Air Positive well nourished and well developed General Appearance ED: well developed; Negative for pallor HEENT Reports dry mucous membranes HEENT Narrative: Normocephalic atraumatic No tongue or lip swelling no oral lesions no airway edema or compromise; no secondary findings in the posterior pharynx to suggest infection Mucous membranes are dry and tacky Bilateral TMs are slightly retracted but show no secondary findings to suggest infection Mouth ED: Yes dry mucous membranes Mouth: dry mucous membranes Eyes PERRL and EOMs intact bilaterally General Eye ED: Negative for scleral icterus Neck supple Neck Narrative: No nuchal rigidity or meningeal signs Resp normal respiratory effort and clear to auscultation bilaterally Cardio regular rate Rate: other Other Details: Irregularly irregular rhythm with regular rate consistent with history of atrial fibrillation GI normal to inspection, nondistended, normoactive bowel sounds, non-tender, non-distended and no masses Auscultation: normoactive bowel sounds Palpation: soft Extremity normal to inspection Neuro oriented x3, CN's II-XII intact bilaterally and no sensory deficits noted Neuro Narrative: GCS of 15 Cranial nerves II through XII are grossly intact without focal neurologic deficit No pronator drift no dysmetria no truncal ataxia NIH stroke scale score of 0 No nystagmus noted; negative Hallpike Cassidy exam Sensorium / Orientation: alert Motor Exam: strength 5/5 throughout Psych mental status grossly normal Skin no rashes or lesions noted and No skin turgor normal Skin Narrative: Skin turgor is increased General Skin Exam: Negative for jaundice or pallor MDM MDM MDM Narrative Medical decision making narrative: Patient presented to the ER with stable vitals. She is in atrial fibrillation but has a past medical history of this and is anticoagulated on Eliquis. She reported that her dizziness resolved after lying down at home. Differential diagnosis is for cardiac dysrhythmia such as A-fib with RVR or severe bradycardia. Patient could also have acute blood loss anemia as she has had this in the past or acute kidney injury or electrolyte abnormality. With the history of Eliquis use and dizziness she also could have a spontaneous subarachnoid or subdural hemorrhage. Secondary to his basic labs and a head CT were obtained. As patient reported symptoms happened while bending over and taking a trash there is also concern for orthostasis versus peripheral vertigo. Head CT revealed no acute findings and laboratory studies revealed no clinically significant lab abnormalities. Her creatinine is slightly elevated but chart review reveals this is at baseline. Her report of dizziness described as a sense of motion with bouts of nausea and vomiting that resolved after resting in time is most consistent with peripheral vertigo. Orthostatic vitals were also technically positive. She was given 1 L fluid and reported feeling better and was able to ambulate with a steady gait. Therefore at this time as her history and exam suggest dehydration and vertigo as a cause of her dizziness and symptoms have resolved at this time and overall workup is negative and vital stable there is no need for further intervention she is otherwise safe for discharge History & Record Review Discussion w/independent historian: Patient and Friend Lab Data Attestation: I reviewed the patient's lab results. Labs: Laboratory Results - last 24 hr 01/23/25 22:29 WBC 3.6 L RBC 3.41 L Hgb 12.5 Hct 35.6 L MCV 104.4 H MCH 36.7 H MCHC 35.1 RDW Std Deviation 58.4 H RDW Coeff of Ragini 15.1 H Plt Count 293 MPV 9.1 Immature Gran % (Auto) 0.800 Neut % (Auto) 68.9 Lymph % (Auto) 21.3 [place] % (Auto) 6.7 Eos % (Auto) 0.3 Baso % (Auto) 2.0 H Absolute Neuts (auto) 2.5 Absolute Lymphs (auto) 0.76 L Nucleated RBC % 0 Differential Comment SCANNED Platelet Estimate ADEQUATE Anisocytosis 1+ Macrocytosis 1+ Ovalocytes 2+ Schistocytes RARE Sodium 137 Potassium 4.0 Chloride 98 Carbon Dioxide 20.2 L Anion Gap 20 H BUN 44 H Creatinine 1.44 H Estim Creat Clear Calc 24.23 L Est GFR (MDRD) Non-Af 37 L BUN/Creatinine Ratio 30.3 H Glucose 174 H Calcium 9.4 Magnesium 2.4 H Radiography Diagnostic Testing: Clinical Impression(s) from Imaging Studies Brain CT 01/23/25 22:38 IMPRESSION: No acute intracranial findings. Reading Location: [place] [id number] Discharge Plan Triage Chief Complaint: Dizziness ED Provider: Milton Lorenzo Dx/Rx/DC Orders Clinical Impression: Vertigo, Mild dehydration, Current use of custodial anticoagulation, Atrial fibrillation, Hypertension Instructions: ED Dehydration (Adult), ED Vertigo, Unspecified Prescriptions: No Action spironolactone 25 mg tablet 12.5 mg PO QODAY Patient Comments: TAKE 1/2 TABLET BY MOUTH ONCE DAILY potassium chloride [Klor-Con M20] 20 mEq tablet,ER particles/crystals 60 meq PO DAILY metoprolol succinate 25 mg tablet extended release 24 hr 25 mg PO DAILY metformin 500 mg tablet 500 mg PO BID Patient Comments: TAKE 1 TABLET BY MOUTH TWICE A DAY WITH FOOD furosemide 40 mg tablet 40 mg PO DAILY exemestane 25 mg tablet 25 mg PO DAILY Patient Comments: take 1 tablet by mouth once daily AFTER A MEAL atorvastatin 20 mg tablet 20 mg PO QHS Patient Comments: TAKE 1 TABLET BY MOUTH DAILY AT BEDTIME. FOR CHOLESTEROL Eliquis 5 mg tablet 5 mg PO BID Patient Comments: TAKE 1 TABLET BY MOUTH TWO TIMES A DAY. (RESTART 12/09/19) Rx Instructions: only taking med once a day because a nose bleed a month ago amlodipine 2.5 mg tablet 5 mg PO DAILY Patient Comments: TAKE 1 TABLET BY MOUTH EVERY DAY furosemide [Lasix] 80 mg tablet 80 mg PO QODAY Ibrance 100 mg capsule 100 mg PO DAILY Patient Comments: 3 weeks on and one week off Rx Instructions: administer on days 1 through 21 of a 28-day treatment cycle biotin 5,000 mcg tablet,disintegrating 5,000 mcg PO BID cholecalciferol (vitamin D3) [Vitamin D3] 25 mcg (1,000 unit) tablet 1,000 unit PO BID [id number] mg capsule 1 cap PO DAILY omega3-krill oil 1 tab PO DAILY melatonin 5 mg capsule 5 mg PO QHS PreserVision AREDS-2 250-90-40-1 mg capsule 1 tab PO BID ramipril 2.5 mg capsule 2.5 mg PO DAILY Primary Care Provider: Phil Negron Referrals: Phil Negron MD [Primary Care Provider] - Activity Restrictions/Additional Instructions: Please keep yourself well-hydrated and continue all of your home medications as directed by your doctor. Return to the ER should you have any further concerns Print Language: Armenian Disposition Disposition: Home, Self Care Discharge Date/Time: 01/24/25 00:25
[2025-01-23 23:08] VITALS: BP 117/61; PULSE 72; RESP 16; O2SAT 98
[2025-01-23] MEDS: 0.9% Normal Saline (1000mL) 1,000 ML 999 ML IV (23:15)
[2025-01-23 23:39] LABS: Anion Gap 20 (5-15); BUN 44 mg/dL (4-19); BUN/Creat Ratio 30.3 RATIO (10-20); Calcium,Total 9.4 mg/dL (7.6-11.0); Carbon Dioxide 20.2 mmol/L (21.0-32.0); Chloride 98 mmol/L (98-108); Estimated Creatinine Clearance 24.23 ml/min (50-250); Glucose 174 mg/dL (70-99); Magnesium 2.4 mg/dL (1.5-2.2); Potassium 4.0 mmol/L (3.3-5.1)
[2025-01-23 23:58] VITALS: BP 107/67; PULSE 64; RESP 16; TEMP 36.4; O2SAT 98
[2025-01-24] VITALS: BP 107/67; PULSE 64; RESP 16; O2SAT 98
[2025-01-24 00:46] LABS: Anisocytosis 1+; Differential Comment SCANNED; Macrocytosis 1+; Schistocytes RARE
== END 2025-01-24 00:25 | disposition home or self-care (01) ==
PROVIDERS: Emergency Provider Emergency Medicine; PCP Family Medicine; Visit Provider Emergency Medicine
DX: R42 Dizziness and giddiness (principal); I48.0 Paroxysmal atrial fibrillation; E11.9 Type 2 diabetes mellitus without complications; E78.5 Hyperlipidemia, unspecified; I10 Essential (primary) hypertension; Z79.01 Long term (current) use of anticoagulants; R11.2 Nausea with vomiting, unspecified; E86.0 Dehydration
CPT/HCPCS: 70450; 80048; 83735; 85025; 93005; 96360; 99283; A4216